=== PATIENT | male | born 1960 | race Two or more races ===

== ENCOUNTER 2016-09-06 20:26 | Inpatient (IN) | payer MEDICARE, MEDICAID ==
[~2016-09-06] VITALS: Ht 167.6 cm; Wt 99.5 kg
[~2016-09-06 20:26] MED LIST: ACET-2047 GTB; AMIN30LI3 GTB; ASC500 GTB; ASPI-664 GTB; CHLO473M2 MM; FAMO20TA18 GTB; LEVE500S9 GTB; MTC5V480 GTB; MUCO4 NEB; TOBR5DRO6 RIGHT EYE; ZINC220C5 GTB
[2016-09-06] MEDS ORDERED: ALLO100T GTB (20:53)
[2016-09-06] MEDS ORDERED: BUME1TAB18 GTB (20:54)
[2016-09-06] MEDS ORDERED: CALC0.255 GTB (20:55)
[2016-09-06] MEDS ORDERED: CITR30SO GTB (20:57)
[2016-09-06] MEDS ORDERED: LANS30CA GTB (20:58)
[2016-09-06] MEDS ORDERED: SEVE2.4P3 GTB (20:59)
[2016-09-06] MEDS ORDERED: CARAS GTB (21:00)
[2016-09-06] MEDS ORDERED: ACET160O41 GTB (21:03)
[2016-09-06] MEDS ORDERED: HYDR-906 GTB (21:05)
[2016-09-06] MEDS ORDERED: FAMO40TA52 GTB (21:07)
[2016-09-06] MEDS ORDERED: SODIUM CHLORIDE 0.9% 1L BAG IV* STA (21:13)
[2016-09-06] MEDS ORDERED: CEFEPIME 2GM/50 ML (PMX) 50 ML IVPB STA (21:13)
--- NOTE | 2016-09-06 21:21 | ERA ---
ER Documentation Chief Complaint Date/Time DATE: 09/06/16 TIME: 21:17 Chief Complaint high BUN more than 150, from [place] [facility] HPI 56-year-old male with a history of GI bleed, chronic respiratory failure trach and vent dependent, diabetes, cerebral palsy sent from [facility] for abnormal labs per request of Dr. Mcelroy. His BUN was critically high and his creatinine was elevated as well from baseline. Patient is nonverbal at baseline and is unable to give a history. ROS Limited secondary to patient being nonverbal Medications Home Meds Reported Medications Famotidine* (Famotidine*) 40 Mg Tablet, 40 MG GTB BID, #60 TAB 09/06/16 Hydrocodone/Acetaminophen ([place] 5-325 Tablet) 1 Each Tablet, 1 EACH GTB Q8 Y for MODERATE PAIN LEVEL 4-6, TAB 09/06/16 Acetaminophen* (Acetaminophen* Susp) 160 Mg/5 Ml Oral.susp, 640 MG GTB Q6 Y for PAIN OR TEMP ABOVE 38C, ML 09/06/16 Sucralfate* (Carafate*) 1 Gm/10 Ml Susp, 1 GM GTB BID, EA 09/06/16 Sevelamer Carbonate* (Renvela*) 2.4 Gm Powd.pack, 2.4 GM GTB WITH MEALS, PACKET 09/06/16 Lansoprazole* (Lansoprazole*) 30 Mg Capsule.dr, 30 MG GTB BID, CAP 09/06/16 Citric Acid/Sodium Citrate (Oracit Solution 30 Ml) 30 Ml Solution, 30 ML GTB BID 09/06/16 Calcitriol* (Rocaltrol*) 0.25 Mcg Capsule, 0.25 MCG GTB DAILY, CAP 09/06/16 Bumetanide* (Bumetanide*) 1 Mg Tablet, 1 MG GTB BID, TAB 09/06/16 Allopurinol* (Allopurinol*) 100 Mg Tablet, 200 MG GTB DAILY, TAB 09/06/16 Amino Acids/Protein Hydrolys (Pro-Stat Profile Liquid) 30 Ml Liquid, 30 ML GTB DAILY 06/18/16 Metoclopramide Hcl (Metoclopramide Hcl Soln) 5 Mg/5 Ml Solution, 5 MG GTB Q8 Y for NAUSEA AND/OR VOMITING, ML 06/18/16 Levetiracetam* (Levetiracetam*) 500 Mg/5 Ml Solution, 500 MG GTB BID, ML 06/18/16 Zinc Sulfate* (Zinc Sulfate*) 220 Mg Cap, 220 MG GTB DAILY, CAP 06/18/16 Chlorhexidine Gluconate (Periogard) 473 Ml Mouthwash, 15 ML MM BID, BOTTLE 06/18/16 Ascorbic Acid (Vitamin C) 500 Mg Tab, 500 MG GTB BID, TAB 06/18/16 Discontinued Reported Medications Acetylcysteine* (Mucomyst*) 4 Ml Soln, 2 ML NEB Q6, EA 06/18/16 Tobramycin Sulfate* (Tobramycin Sulfate*) 0.3% - 5 Ml Drops, 1 DROP RIGHT EYE Q6 , EA 06/18/16 Acetaminophen* (Acetaminophen*) 650 Mg Tablet, 650 MG GTB Q6H Y for PAIN AND TEMP>101, #30 TAB 06/18/16 Famotidine* (Famotidine*) 20 Mg Tablet, 20 MG GTB BID, #60 TAB 06/18/16 Aspirin* (Aspirin* EC) 81 Mg Tablet.dr, 81 MG GTB DAILY, TAB 06/18/16 Allergies Allergies: Coded Allergies: azithromycin (Unverified Allergy, Unknown, 09/06/16) erythromycin base (Unverified Allergy, Unknown, 09/06/16) piperacillin (Unverified Allergy, Unknown, 09/06/16) tazobactam (Unverified Allergy, Unknown, 09/06/16) PMhx/Soc Medical and Surgical Hx: Unable to obtain History of Surgery: Yes Anesthesia Reaction: No Hx Neurological Disorder: Yes (cerebral palsy,TIA) Hx Respiratory Disorders: Yes (Trach to vent,chronic resp failure) Hx Cardiac Disorders: Yes (atherosclerosis) Hx Psychiatric Problems: No Hx Miscellaneous Medical Probl: Yes (GIB,anemia,convulsions,DM2,GERD,mult pressure ulcers,contracted) Hx Substance Use: No Smoking Status: Unknown if ever smoked FmHx Family History: other (Unable to obtain) Physical Exam Vitals Vital Signs Date Time Temp Pulse Resp B/P Pulse Ox O2 Delivery O2 Flow Rate FiO2 09/07/16 01:17 99 16 134/62 99 Mechanical Ventilator T Tube Trach Collar 09/07/16 00:00 99 16 84/66 100 Mechanical Ventilator T Tube Trach Collar 09/06/16 23:30 96 19 87/65 100 Mechanical Ventilator T Tube Trach Collar 09/06/16 22:50 96 20 100 40 09/06/16 22:30 97 17 98/60 100 Mechanical Ventilator T Tube Trach Collar 09/06/16 22:15 100 21 71/39 100 Mechanical Ventilator T Tube Trach Collar 09/06/16 22:00 101 20 65/46 100 Mechanical Ventilator T Tube Trach Collar 09/06/16 21:15 99 0 82/58 100 Mechanical Ventilator T Tube Trach Collar 09/06/16 20:40 111 19 100 30 09/06/16 20:33 96.1 104 16 75/40 100 Physical Exam Const: Ill-appearing, very pale, extremities are all contracted, nontoxic Head: Atraumatic Eyes: Normal Conjunctiva, Johnathan ENT: Dry oral mucosa, no oropharyngeal bleeding, no epistaxis Neck: Limited range of motion secondary to contractures. Tracheostomy in place. Resp: Rhonchi bilaterally, diminished breath sounds bilaterally Cardio: Regular rate and rhythm, no murmurs Abd: Soft, non tender, non distended. Normal bowel sounds Skin: Petechiae present, multiple decubitus ulcers on the back and buttocks Back: Multiple decubitus ulcers with dressings in place Ext: Extremities contractures with muscle atrophy Neur: Awake and alert, nonverbal, does not follow commands Result Diagram: 09/06/163 09/06/16 2102 Results 24 hrs Laboratory Tests Test 09/06/16 21:02 09/06/16 22:13 09/06/16 22:15 09/06/16 23:29 Alanine Aminotransferase (ALT/SGPT) 19IU/L Albumin 1.7g/dl Albumin/Globulin Ratio 0.47 Alkaline Phosphatase 218IU/L Anion Gap 16 Aspartate Amino Transf (AST/SGOT) 17IU/L Blood Urea Nitrogen 234mg/dl Calcium Level 8.8mg/dl Carbon Dioxide Level 28mmol/L Chloride Level 106mmol/L Creatinine 3.20mg/dl Direct Bilirubin 0.00mg/dl Globulin 3.60g/dl Glucose Level 112mg/dl Indirect Bilirubin 0.0mg/dl Lactic Acid Level 1.7mmol/L 1.5mmol/L Potassium Level 5.2mmol/L Sodium Level 145mmol/L Total Bilirubin 0.0mg/dl Total Protein 5.3g/dl Troponin I 0.047ng/ml Basophils # 0.010^3/ul Basophils % 2.4% Blood Morphology Comment Eosinophils # 0.110^3/ul Eosinophils % 2.7% Hematocrit 9.2% Hemoglobin 3.2g/dl Lymphocytes # 0.510^3/ul Lymphocytes % 25.2% Mean Corpuscular Hemoglobin 31.2pg Mean Corpuscular Hemoglobin Concent 34.6g/dl Mean Corpuscular Volume 90.4fl Mean Platelet Volume 10.9fl Monocytes # 0.210^3/ul Monocytes % 10.1% Neutrophils # 1.310^3/ul Neutrophils % 61.6% Nucleated Red Blood Cells # 0.010^3/ul Nucleated Red Blood Cells % 0.0/100WBC Platelet Count 810^3/UL Red Blood Count 1.0210^6/ul Red Cell Distribution Width 15.6% White Blood Count 2.110^3/ul Activated Partial Thromboplast Time 41.8Sec INR International Normalized Ratio 1.31 Prothrombin Time 16.4Sec Prothrombin Time Ratio 1.3 Test 09/07/16 01:19 Urine Amorphous Urates MODERATE Urine Bacteria FEW Urine Bilirubin NEGATIVE Urine Clarity CLEAR Urine Color LT. YELLOW Urine Glucose NEGATIVE% Urine Hemoglobin TRACE Urine Ketones NEGATIVE Urine Leukocyte Esterase NEGATIVE Urine Microscopic RBC 0-2/HPF Urine Microscopic WBC 0-2/HPF Urine Nitrite NEGATIVE Urine Specific [place] 1.015 Urine Squamous Epithelial Cells MODERATE Urine Total Protein 1+ Urine Transitional Epithelial Cells FEW Urine Urobilinogen 0.2 E.U./dL Urine pH 5.0 Current Medications Medications (Trade) Dose Ordered Sig/Marynane Route PRN Reason Start Time Stop Time Status Last Admin Dose Admin Sodium Chloride 2300 ml 2,300 ml BOLUS OVER 2 HOURS STAT IV* 09/06/16 21:13 09/06/16 21:15 DC 09/06/16 21:31 Cefepime HCl 50 ml @ 100 mls/hr ONCE STAT IVPB 09/06/16 21:13 09/06/16 21:42 DC 09/06/16 21:41 Vancomycin HCl 250 ml @ 125 mls/hr ONCE ONCE IVPB 09/06/16 21:30 09/06/16 23:29 DC 09/06/16 22:15 Sodium Chloride (NS) 250 ml @ 0 mls/hr Q0M ONCE IV 09/06/16 22:17 09/06/16 22:18 DC Acetaminophen (Tylenol Liquid) 640 mg Q6H PRN GTB PAIN OR TEMP ABOVE 38C 09/06/16 22:30 Allopurinol (Zyloprim) 200 mg DAILY GTB 09/07/16 09:00 UNV Ascorbic Acid (Vitamin C) 500 mg BID GTB 09/07/16 09:00 UNV Bumetanide (Bumex) 1 mg BID GTB 09/07/16 09:00 UNV Calcitriol (Rocaltrol) 0.25 mcg DAILY GTB 09/07/16 09:00 UNV Chlorhexidine Gluconate (Peridex) 15 ml BID MM 09/07/16 09:00 UNV Famotidine (Pepcid) 40 mg BID GTB 09/07/16 09:00 UNV Lansoprazole (Prevacid) 30 mg BID GTB 09/07/16 09:00 UNV Levetiracetam (Keppra Liquid) 500 mg BID GTB 09/07/16 09:00 UNV Metoclopramide HCl (Reglan Liq (Ped)) 5 mg Q8 PRN GTB NAUSEA AND/OR VOMITING 09/06/16 22:30 UNV Sevelamer Carbonate (Renvela) 2.4 gm WITH MEALS GTB 09/07/16 08:00 UNV Sucralfate (Carafate Susp) 1 gm BID GTB 09/07/16 09:00 UNV Zinc Sulfate 220 mg 220 mg DAILY GTB 09/07/16 09:00 UNV Sodium Chloride (NS) 1,000 ml @ 100 mls/hr Q10H IV 09/06/16 22:23 UNV Ondansetron HCl (Zofran Inj) 4 mg Q6H PRN IV NAUSEA AND/OR VOMITING 09/06/16 22:30 Morphine Sulfate (morphine) 2 mg Q4H PRN IV PAIN LEVEL 7-10 09/06/16 22:30 Enoxaparin Sodium 30 mg 30 mg DAILY SC 09/07/16 09:00 UNV Sodium Chloride (NS) 250 ml @ 0 mls/hr Q0M ONCE IV 09/06/16 23:09 09/06/16 23:10 DC Procedures/MDM EKG: Rate/Rhythm: Normal Sinus Rhythm QRS, ST, T-waves: Low voltage, left anterior fascicular block, No changes consistent w/ acute ischemia Impression: No evidence of ischemia or arrhythmia Central Line Placement by me: Patient consented, sterilely draped, full prep, gown, glove, mask, time out performed. Anesthesia: 1% lidocaine locally Location: Left IJ Device: Multiple lumen Technique: Seldinger technique. Secured with suture. Results: Venous return from all ports with easy saline flush. Small overlying hematoma, no other complications Guide wire retrieved and disposed of. ED Ultrasound: Central line placed by me using concurrent ultrasound guidance. Chest X-ray 1V Interpreted by me: Central line in SVC, Normal soft tissue, No evidence of pneumothorax. Limited transthoracic echo performed by me Indication: Low voltage on EKG, shock Pericardium: No effusion Cardiac: Normal contraction Image archived in the medical record. The patient is presenting with multiple problems. He was originally sent for acute renal failure with uremia and elevated creatinine. However his labs were also notable for severe anemia and severe thrombocytopenia with low white blood cell count, indicative of pancytopenia of unknown etiology. I have a lower suspicion for septic shock, however since the patient has a chronic tracheostomy with a chest x-ray that is difficult to read, I cannot rule out underlying pneumonia. However the patient is afebrile. Broad spectrum antibiotics were given. Patient was a difficult access so central line was started. 30 cc/kg of IV fluids were given. 3 units of PRBCs and 2 units of platelets were ordered. His lactate was within normal limits. He will be admitted for further workup and management of his critical condition. Critical Care Time: 45 Minutes Treatments/Evaluations: Close monitoring and treatment of unstable vital signs, cardiorespiratory, and neurologic status, while maintaining tight balance of fluid, respiratory, and cardiac interventions. This time includes discussing the case with the patient and the patients family. This time does not include all procedures stated elsewhere in this record. This time also includes reviewing old records, labs and radiological studies. This time includes examining and re-examining the patient. Additionally, this time also includes arranging care with admitting and consulting physicians. Departure Diagnosis: Primary Impression: Hypovolemic shock Additional Impressions: Uremia Acute renal failure Qualified Code: N17.9 - Acute renal failure, unspecified acute renal failure type Hyperkalemia Acquired pancytopenia Thrombocytopenia Severe anemia LILLY JOHNSON MD Sep 06, 2016 21:21
[2016-09-06] MEDS ORDERED: VANCOMYCIN 1 GM (PMX) 250 ML IVPB ONE (21:30)
[2016-09-06 21:38] LABS: INR 1.31; PROTIME 16.4 Sec (12.2-14.2); PT RATIO 1.3
[2016-09-06 21:39] LABS: PARTIAL THROMBOPLASTIN TIME 41.8 Sec (25.0-35.0)
[2016-09-06 21:41] LABS: ALBUMIN 1.7 g/dl (3.3-4.9); POTASSIUM 5.2 mmol/L (3.5-5.1)
[2016-09-06 21:43] LABS: CREATININE 3.2 mg/dl (0.61-1.24)
[2016-09-06 21:44] LABS: ALBUMIN/GLOBULIN RATIO 0.47; TOTAL PROTEIN 5.3 g/dl (6.1-8.1)
[2016-09-06 21:45] LABS: CALCIUM 8.8 mg/dl (8.4-10.2)
[2016-09-06 21:56] LABS: TROPONIN-I 0.047 ng/ml (0.00-0.12)
--- NOTE | 2016-09-06 22:14 | RADRPT ---
PROCEDURE: XR Chest. CLINICAL INDICATION: Possible sepsis TECHNIQUE: A single portable view of the chest was obtained. COMPARISON: 07/24/2016 FINDINGS: Exam is limited secondary to patient positioning. A tracheostomy tube is again seen. The aorta is tortuous and atherosclerotic. The cardiomediastinal silhouette is otherwise enlarged and is stable. Diffuse pulmonary vascular congestion is seen with likely underlying pulmonary edema. Bilateral p leural effusions are noted. The soft tissues and osseous structures demonstrate benign age related senescent changes. IMPRESSION: Radiographic findings of congestive heart failure as described above. RPTAT: HPNM Physician Brendon Date Time Electronically viewed and signed by Physician Brendon on 09/06/2016 22:13 /
[2016-09-06] MEDS ORDERED: SOD CHLORIDE 0.9% 250 ML IV ONE ×2 (22:17→23:09)
[2016-09-06] MEDS ORDERED: METOCLOPRAMIDE 5 MG TAB GTB PRN (22:30)
[2016-09-06 23:04] LABS: EOSINOPHILS # 0.1 10^3/ul (0.0-0.5); HEMATOCRIT 9.2 % (42.0-52.0); MEAN CORPUSCULAR HEMOGLOBIN 31.2 pg (29.0-33.0); MEAN CORPUSCULAR HGB CONC 34.6 g/dl (32.0-37.0); MEAN CORPUSCULAR VOLUME 90.4 fl (82.0-101.0); MEAN PLATELET VOLUME 10.9 fl (7.4-10.4); MONOCYTE # 0.2 10^3/ul (0.3-0.9); RED BLOOD COUNT 1.02 10^6/ul (4.70-6.10); RED CELL DISTRIBUTION WIDTH 15.6 % (11.5-14.5)
[2016-09-06 23:12] LABS: HEMOGLOBIN 3.2 g/dl (14.0-18.0); PLATELET COUNT 8 10^3/UL (140-440)
[2016-09-07] VITALS (72 sets, daily range): BP systolic 68–126; BP diastolic 37–87; PULSE 77–101; RESP 12–22
[2016-09-07 01:40] LABS: ADD UMIC YES; URINE BILIRUBIN (Dip) NEGATIVE (NEGATIVE); URINE BLOOD (Dip) TRACE (NEGATIVE); URINE COLOR LT. YELLOW (YELLOW); URINE GLUCOSE (Dip) NEGATIVE (NEGATIVE); URINE KETONES (Dip) NEGATIVE (NEGATIVE); URINE LEUKOCYTE ESTERASE (Dip) NEGATIVE (NEGATIVE); URINE NITRITE (Dip) NEGATIVE (NEGATIVE); URINE UROBILINOGEN (Dip) 0.2 E.U./dL (0.1-1.0)
[2016-09-07 01:41] LABS: URINE TOTAL PROTEIN (Dip) 1+ (NEGATIVE)
[2016-09-07 01:58] LABS: ADD SCAN DIFF YES
[2016-09-07 02:00] LABS: BACTERIA,URINE FEW; SQUAMOUS EPITHELIAL CELL,UR MODERATE; TRANSITIONAL EPI CELLS,URINE FEW; URINE RBCS 0-2 /HPF (0)
--- NOTE | 2016-09-07 02:34 | RADRPT ---
PROCEDURE: CHEST - 1 VIEW September 07, 2016 at 01:10 a.m. CLINICAL INDICATION: 56-year-old male for line placement. TECHNIQUE: A single frontal AP view of the chest was performed portably. The images were reviewed on a PACS workstation. COMPARISON: Chest x-ray September 06, 2078 09:33 p.m. FINDINGS: The radiograph is rotated to the right. There is a left internal jugular central line with the tip in the mid superior vena cava region. There is a tracheostomy tube again identified. The cardiomed iastinal silhouette is enlarged. The right lung apex is obscured by the patient's mandible. There is worsening pulmonary vascular congestion. Mild bilateral pleural effusions with associate compressiv e atelectasis are present. A superimposed infiltrate cannot be excluded. There is no evidence for p neumothorax. The osseous structures are intact. IMPRESSION: 1. Rotated radiograph. 2. Interval placement of left internal jugular central line with the tip in the mid superior vena c randolph. 3. Tracheostomy tube. 4. Cardiomegaly. 5. Worsening pulmonary vascular congestion. 6. Bilateral pleural effusions with associate compressive atelectasis. A superimposed infiltrate c annot be excluded. .Aniket Lang MD, MD Date Time Electronically viewed and signed by .Aniket Lang MD, on 09/07/2016 02:34 .M/
[2016-09-07 02:58] LABS: LYMPHOCYTES # 0.6 10^3/ul (0.8-2.9); NEUTROPHIL # 1.2 10^3/ul (1.6-7.5)
[2016-09-07] MEDS ORDERED: BUMETANIDE 1 MG TAB GTB SCH (06:00)
[2016-09-07] MEDS: SOD CHLORIDE 0.9% 1,000 ML IV SCH ×3 (08:23→21:33)
[2016-09-07] MEDS: NORepinephrine 8MG/250 ML (PMX 250 ML IV SCH (08:40)
[2016-09-07] MEDS ORDERED: NORepinephrine 8MG/250 ML (PMX 250 ML ONE (08:46)
[2016-09-07] MEDS ORDERED: ALBUMIN HUMAN 25% 100 ML IV ONE (09:00)
[2016-09-07] MEDS ORDERED: SOD CHLORIDE 0.9% 500 ML IV ONE (09:00)
[2016-09-07] MEDS: SEVELAMER CARBONATE 2.4 GM PKT GTB SCH ×3 (09:06→17:09)
[2016-09-07] MEDS: CHLORHEXIDINE GLUCONATE 15 ML UD CUP MM SCH ×2 (09:06→21:36)
[2016-09-07] MEDS: SUCRALFATE (100 MG/ML) 10ML CUP GTB SCH ×2 (09:06→21:32)
[2016-09-07] MEDS: LEVETIRACETAM (100 MG/ML) 5ML CUP GTB SCH ×2 (09:06→21:32)
[2016-09-07] MEDS: CALCITRIOL 0.25 MCG CAP GTB SCH (09:07)
[2016-09-07] MEDS: ASCORBIC ACID 500 MG TAB GTB SCH ×2 (09:07→21:33)
[2016-09-07] MEDS: ZINC SULFATE 220 MG CAP GTB SCH (09:07)
[2016-09-07] MEDS: FAMOTIDINE 20 MG TAB GTB SCH (09:07)
--- NOTE | 2016-09-07 09:20 | CONS ---
Date/Time of Note Date/Time of Note DATE: 09/07/16 TIME: 09:15 Assessment/Plan Assessment/Plan Additional Assessment/Plan Assessment and recommendation; next 1. Chronic respiratory failure. 2. Multiple other comorbidities including severe CVA and severe anoxic encephalopathy. 3. Stable seizure disorder. 4. Pancytopenia. Patient already has received 2 units of packed RBCs currently getting platelet infusion as well. 5. Congestive heart failure. 6. Hypotension. Currently on Levophed drip. Patient also has been fluid resuscitated. Continue current treatment. Prognosis is poor. Consultation Date/Type/Reason Admit Date/Time Sep 06, 2016 at 22:27 Date of Consultation: Sep 07, 2016 Type of Consultation: Pulmonary/critical Reason for Consultation 56-year-old white male transferred from skilled nursing with severe anemia. She also was quite hypertensive. Because of severe anoxic enthesopathy patient is unable to give any history whatsoever. History was obtained from medical records. Past medical history; 1. Advanced dementia due to CVA. 2. Chronic respiratory failure, ventilator dependent. 3. CHF. 4. Renal insufficiency. 5. Seizure disorder. 6. History of anemia. 7. Gout. 8. Post tracheostomy and G-tube placement. Medications; were reviewed. Next Allergies; tazobactam and macrolide antibiotics. Social history; currently not available. Family history; not available. Occupational history; not available. Review of systems; unable to be obtained. General examination; middle-aged man, appears severely contracted. On mechanical ventilation via tracheostomy. Unresponsive. However currently in no distress. Social History Smoking Status: Unknown if ever smoked Exam/Review of Systems Vital Signs Vitals Vital Signs Date Time Temp Pulse Resp B/P Pulse Ox O2 Delivery O2 Flow Rate FiO2 09/07/16 08:00 94 13 77/37 100 Mechanical Ventilator 09/07/16 05:24 40 09/07/16 04:00 97.4 Intake and Output 09/06/16 09/06/16 09/07/16 15:00 23:00 07:00 Output Total 350 ml Balance -350 ml Exam Ventilator settings are AC of 14, tidal volume 550, PEEP of 5, 30% FiO2. H EENT examination; neck appears stiff with flexion contraction. Tracheostomy in place. Pupils are midsize reactive to light bilaterally. Patient is edentulous. No neck masses felt. Chest examination; diminished breath on lung bases bilaterally. S1-S2 audible. No murmurs. Regular rhythm. Abdomen examination; scaphoid, G-tube in place. No organomegaly felt. Back examination; multiple sacral decubitus ulcers are seen. Stage II. Extremity examination; no peripheral edema. [employer] examination; patient is completely unresponsive. Results Result Diagram: 09/06/16221209/06/16 2102 Results 24 hrs Laboratory Tests Test 09/06/16 21:02 09/06/16 22:13 09/06/16 22:15 09/06/16 23:29 Alanine Aminotransferase (ALT/SGPT) 19 Albumin 1.7 L Albumin/Globulin Ratio 0.47 Alkaline Phosphatase 218 H Anion Gap 16 Aspartate Amino Transf (AST/SGOT) 17 Blood Urea Nitrogen 234 H Calcium Level 8.8 Carbon Dioxide Level 28 Chloride Level 106 Creatinine 3.20 H Direct Bilirubin 0.00 Globulin 3.60 H Glucose Level 112 Indirect Bilirubin 0.0 Lactic Acid Level 1.7 1.5 Potassium Level 5.2 H Sodium Level 145 H Total Bilirubin 0.0 L Total Protein 5.3 L Troponin I 0.047 Basophils # Basophils % Blood Morphology Comment Eosinophils # 0.1 Eosinophils % 7.0 Hematocrit 9.2 #L Hemoglobin 3.2 #*L Lymphocytes # 0.6 L Lymphocytes % 30.0 Mean Corpuscular Hemoglobin 31.2 Mean Corpuscular Hemoglobin Concent 34.6 Mean Corpuscular Volume 90.4 Mean Platelet Volume 10.9 #H Monocytes # 0.2 L Monocytes % 8.0 Neutrophils # 1.2 L Neutrophils % 55.0 Nucleated Red Blood Cells # 0.0 Nucleated Red Blood Cells % 6.0 H Platelet Count 8 #*L Red Blood Count 1.02 #L Red Cell Distribution Width 15.6 H White Blood Count 2.1 #L Activated Partial Thromboplast Time 41.8 H INR International Normalized Ratio 1.31 Prothrombin Time 16.4 H Prothrombin Time Ratio 1.3 Test 09/07/16 01:19 Urine Amorphous Urates MODERATE Urine Bacteria FEW Urine Bilirubin NEGATIVE Urine Clarity CLEAR Urine Color LT. YELLOW Urine Glucose NEGATIVE Urine Hemoglobin TRACE Urine Ketones NEGATIVE Urine Leukocyte Esterase NEGATIVE Urine Microscopic RBC 0-2 Urine Microscopic WBC 0-2 Urine Nitrite NEGATIVE Urine Specific [place] 1.015 Urine Squamous Epithelial Cells MODERATE Urine Total Protein 1+ H Urine Transitional Epithelial Cells FEW Urine Urobilinogen 0.2 E.U./dL Urine pH 5.0 Medications Medications Current Medications Acetaminophen (Tylenol Liquid) 640 mg Q6H PRN GTB PAIN OR TEMP ABOVE 38C; Start 09/06/16 at 22:30 Allopurinol (Zyloprim) 200 mg DAILY GTB ; Start 09/07/16 at 09:00 Ascorbic Acid (Vitamin C) 500 mg BID GTB ; Start 09/07/16 at 09:00 Calcitriol (Rocaltrol) 0.25 mcg DAILY GTB ; Start 09/07/16 at 09:00 Chlorhexidine Gluconate (Peridex) 15 ml BID MM ; Start 09/07/16 at 09:00 Famotidine (Pepcid) 40 mg DAILY GTB ; Start 09/07/16 at 09:00 Lansoprazole (Prevacid) 30 mg BID@,18 GTB ; Start 09/07/16 at 06:00 Levetiracetam (Keppra Liquid) 500 mg BID GTB ; Start 09/07/16 at 09:00 Metoclopramide HCl (Reglan) 5 mg Q8H PRN GTB NAUSEA AND/OR VOMITING; Start 09/06 at 22:30 Sucralfate (Carafate Susp) 1 gm BID GTB ; Start 09/07/16 at 09:00 Zinc Sulfate 220 mg 220 mg DAILY GTB ; Start 09/07/16 at 09:00 Sodium Chloride (NS) 1,000 ml @ 100 mls/hr Q10H IV ; Start 09/06/16 at 22:23 Ondansetron HCl (Zofran Inj) 4 mg Q6H PRN IV NAUSEA AND/OR VOMITING; Start 09/06 at 22:30 Morphine Sulfate (morphine) 2 mg Q4H PRN IV PAIN LEVEL 7-10; Start 09/06/16 at 22:30 Enoxaparin Sodium 30 mg 30 mg DAILY SC ; Start 09/07/16 at 09:00 Norepinephrine 250 ml @ 1.875 mls/ hr TITRATE IV ; Start 09/07/16 at 09:00 Albumin Human 100 ml @ 100 mls/hr ONCE ONCE IV ; Start 09/07/16 at 09:00; Stop 09/07/16 at 09:59 Sodium Chloride (NS) 500 ml @ 500 mls/hr Q1H ONCE IV ; Start 09/07/16 at 09:00 ; Stop 09/07/16 at 09:59; Status LIU NESS Sep 07, 2016 09:20
[2016-09-07] MEDS: ENOXAPARIN 30 MG/0.3 ML SYG SC SCH (09:28)
[2016-09-07] MEDS: LANSOPRAZOLE 30 MG CAP GTB SCH ×3 (09:35→21:33)
[2016-09-07] MEDS: ALLOPURINOL 100 MG TAB GTB SCH (09:35)
[2016-09-07 09:52] LABS: ABNORMAL IP MESSAGE 1; EOSINOPHILS # 0.1 10^3/ul (0.0-0.5); EOSINOPHILS % 3.7 % (0.0-7.0); HEMATOCRIT 16.2 % (42.0-52.0); LYMPHOCYTES # 0.7 10^3/ul (0.8-2.9); LYMPHOCYTES % 18.7 % (15.0-51.0); MEAN CORPUSCULAR HEMOGLOBIN 30.9 pg (29.0-33.0); MEAN CORPUSCULAR HGB CONC 34.6 g/dl (32.0-37.0); MEAN CORPUSCULAR VOLUME 89.5 fl (82.0-101.0); MEAN PLATELET VOLUME 9.7 fl (7.4-10.4); MONOCYTE # 0.6 10^3/ul (0.3-0.9); MONOCYTES % 18.4 % (0.0-11.0); NEUTROPHILS % 58.6 % (39.0-77.0); NUCLEATED RED BLOOD CELLS% 0.9 /100WBC (0.0-0.0); PLATELET COUNT 55 10^3/UL (140-415); RED BLOOD COUNT 1.81 10^6/ul (4.70-6.10); RED CELL DISTRIBUTION WIDTH 15.4 % (11.5-14.5); WHITE BLOOD COUNT 3.5 10^3/ul (4.8-10.8)
[2016-09-07 09:56] LABS: ADD SCAN DIFF YES; HEMOGLOBIN 5.6 g/dl (14.0-18.0)
--- NOTE | 2016-09-07 10:01 | RADRPT ---
PROCEDURE: Retroperitoneal US. CLINICAL INDICATION: Renal insufficiency TECHNIQUE: Multiple sonographic images of the kidneys and retroperitoneum were obtained. The imag es were reviewed on a PACS workstation. COMPARISON: No prior studies are available for comparison. FINDINGS: The right kidney measures 10.4 cm. The left kidney measures 10.9 cm. There is increased echogenicity of the kidneys. There is no evidence of hydronephrosis. The urinary bladder is not visualized.. IMPRESSION: Echogenic kidneys, consistent with medical renal disease. No evidence of hydronephrosis. RPTAT: AA .Bird Jenkins MD, MD Date Time Electronically viewed and signed by .Bird Jenkins MD, on 09/07/2016 10:00 .S/
--- NOTE | 2016-09-07 10:13 | HP ---
DATE OF ADMISSION: 09/06/2016 CHIEF COMPLAINT: The patient sent by [facility] for elevated BU N and creatinine. HISTORY OF PRESENT ILLNESS: The patient is a 56-year-old gentleman with history of mental retardat ion, status post cerebrovascular accident, status post craniotomy. The patient with ventilator depe ndent chronic respiratory failure, chronic anemia, encephalopathy, seizure disorder, dysphagia with G-tube. The patient with multiple pressure ulcers by history and present on admission. The patient with history of sepsis and anemia requiring blood transfusion. [facility] labs his BUN and creatinine was high. Per previous admiss ion the patient's BUN and creatinine was within normal limits. Creatinine was even a little lower t good normal limits; however, patient's BUN was 234, creatinine 3.2. Patient also noted to have sever e anemia with hemoglobin being 3.2 and hematocrit 9.2, white blood cells was 2.1, platelet count 8. The patient was transfused 2 units of packed red blood cells and getting currently transfusion of p lateletpheresis. The patient has a large amount of secretions from the ET tube. The patient underwe nt a chest x-ray which revealed worsening pulmonary vascular congestion, bilateral pleural effusion with associated compressive atelectasis, a superimposed infiltrate cannot be excluded. The patient was started on broad spectrum antibiotics for possible hospital-acquired pneumonia and the patient i s admitted for further evaluation and management to intensive care unit. Patient had a tachycardia with labile blood pressure on admission. No fever, nausea, vomiting were reported. No diarrhea rep orted. PAST MEDICAL HISTORY: Per HPI. PAST SURGICAL HISTORY: Status post excisional debridement of right trochanteric decubitus ulcer by Prasad Ferro in March 2016. The patient is status post tracheostomy and status post G-tube placem ent, status post craniotomy. FAMILY HISTORY: Noncontributory. SOCIAL HISTORY: [facility]. ALLERGIES: PATIENT IS ALLERGIC TO: 1. ERYTHROMYCIN. 2. ZOSYN. MEDICATIONS ON ADMISSION: 1. Pepcid. 2. [place]. 3. Acetaminophen. 4. Carafate. 5. Renvela. 6. Lansoprazole 7. Rocaltrol. 8. Ranitidine. 9. Allopurinol. 10. Pro-Stat liquid. 11. Reglan. 12. Keppra. 13. Zinc sulfate. 14. Vitamin C ____. REVIEW OF SYSTEMS: A 12-point review of systems is negative unless what mentioned in the HPI. Unab le to obtain due to patient's condition. PHYSICAL ASSESSMENT: GENERAL: Well-developed, frail, elderly male who is lethargic, opens eyes to verbal stimuli. VITAL SIGNS: Temperature is 97.4, pulse is 94, blood pressure is 77/37, respiratory rate 13, oxygen saturation is 100% on 40% FIO2. HEENT: Head is atraumatic. Pupils are equal and reactive to light and accommodation. Oral mucosa is dry. NECK: Supple. There is a tracheostomy at the base of the neck with large amount of secretions. CHEST: Lungs are diminished bilaterally. Scattered rhonchi bilaterally. CARDIOVASCULAR: Normal S1, S2. No murmurs, gallops, clicks, rubs noted. ABDOMEN: Abdomen is round, soft, nondistended, nontender. Bowel sounds present. The patient has a G-tube. SKIN: No petechiae present. Patient has multiple decubitus ulcers. Please see wound care notes. EXTREMITIES: Contractures with muscle atrophy. NEUROLOGIC: The patient is awake, alert, opens eyes to commands, nonverbal, does not follow any com mands. LABORATORY DATA: On admission, CBC: White blood cells 2.1, hemoglobin 3.2, hematocrit 9.2, platele ts 8. Chemistry: Sodium is 145, potassium 5.2, chloride 106, carbon dioxide 28, anion gap 16, BUN is 234, creatinine 3.2, glucose 112, AST 17, ALT is 19, alkaline phosphate 218. Troponin 0.047, PT 16.4, INR is 1.31, PTT is 41.8. ASSESSMENT AND PLAN: 1. Severe anemia. Will transfuse, continue to monitor hemoglobin and hematocrit, obtain stool for OB, Dr. Singh to see patient in gastroenterology consultation. 2. Hypovolemic shock. Continue IV fluids. 3. Acute kidney failure secondary to #1 and #2. I will continue IV fluids, monitor BUN and creatini ne. Dr. Mk Purdy will follow patient in nephrology consultation. 4. Pancytopenia. 5. Ventilator-dependent respiratory failure. 6. Possible healthcare-acquired pneumonia. Dr. Hansen will be following the patient from pulmonolo gy consultation. Continue ventilator support, bronchodilators. The patient will continue broad spe ctrum antibiotics for possible pneumonia. Dr. Guy will be following patient in infectious diseas e consultation. 7. Dysphagia with PEG. 8. History of seizure disorder. Continue patient on Keppra. 9. Diastolic dysfunction congestive heart failure with preserved ejection fraction of 60%. 10. Possible sepsis. 11. Status post cerebrovascular accident, status post craniotomy. 12. Mental retardation. Per [facility]ci notes, patient is DNR with preference for hospitalization , G-tube feeding and IV fluids. We will continue Protonix for peptic ulcer disease prophylaxis. Fur ther recommendations based on clinical course. Plan of care discussed with Dr. Coello. Dictated By: QUIN ORTIZ SECURITY COMPLIANCE SPECIALIST for FREDDY COELLO MD SR/NTS Conf#: [id number] DID#: [id number]
[2016-09-07 10:30] LABS: Allen Test ACCEPTAB; MODE VENT - AC
[2016-09-07 10:36] LABS: CREATININE 3.44 mg/dl (0.61-1.24)
[2016-09-07 10:37] LABS: CALCIUM 9.2 mg/dl (8.4-10.2); MAGNESIUM 2.7 mg/dl (1.7-2.5)
--- NOTE | 2016-09-07 11:48 | CONS ---
DATE OF ADMISSION: 09/06/2016 DATE OF CONSULTATION: 09/07/2016 REASON FOR CONSULTATION: Acute kidney injury with a BUN of 216, creatinine 3.44. TYPE OF CONSULTATION: Nephrology. REFERRING PHYSICIAN: Navi. HISTORY OF PRESENT ILLNESS: This is a 56-year-old gentleman with a history of mental retardation, s tatus post cerebrovascular accident, status post craniotomy, ventilator-dependent respiratory failur e, anoxic encephalopathy, chronic anemia, seizure disorder, dysphagia status post G-tube, also has m ultiple pressure ulcers by history and present on admission. The patient is currently a skilled junie sing resident at the [place] [facility]. The patient was sent because of having a BUN of 234 and creatinine 3.2. The patient was also hypotensive, altered mental status. Patient 's chest x-ray shows superimposed new infiltrates with possible pneumonia, concerned about healthcar e-associated pneumonia. The patient was tachycardic with labile blood pressure on admission and franki king has been consulted for acute renal failure with a BUN of 234. The patient has a previous history of multiple decubitus ulcers and had an excisional debridement of right trochanter decubitus ulcer done by Dr. Ferro in March 2016. REVIEW OF SYSTEMS: Unable to obtain from the patient since the patient is on a ventilator and he i s mentally retarded. PAST MEDICAL HISTORY: As per HPI. PAST SURGICAL HISTORY: History of excisional debridement of right trochanteric decubitus ulcer by Prasad Ferro in March 2016, status post tracheostomy, status post G-tube placement, status post cr aniectomy. FAMILY HISTORY: Noncontributory. 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 ALLERGIES: ERYTHROMYCIN AND ZOSYN. MEDICATIONS: As per medical reconciliation. PHYSICAL EXAMINATION: VITAL SIGNS: Temperature 98.6, heart rate 84, respirations 15, blood pressure 109/66, saturation on FIO2 100% on ventilator. GENERAL: The patient is currently intubated on ventilator. HEENT: Tracheostomy site is clear in place. LUNGS: Bilateral coarse breath sounds present. HEART: S1, S2, tachycardia. ABDOMEN: Soft. G-tube is in place. EXTREMITIES: Dry skin. NEUROLOGICAL: Uncooperative for exam. SKIN: Multiple pressure ulcers. LABORATORY DATA/DIAGNOSTIC IMAGING: Sodium 151, potassium 5, chloride 111, bicarbonate 26, BUN 216 , creatinine 3.4, glucose 83, calcium 9.2, magnesium 2.7. PT 16.4, PTT 41.8, INR 1.3. ABG shows a pH of 7.47. WBC 3.5, hemoglobin 3.2, platelet count ____. Chest x-ray shows interval placement o f the left internal jugular central line, tracheostomy tube, cardiomegaly, worsening pulmonary vascu lar congestion. IMPRESSION: This is a 56-year-old male with: 1. Acute kidney injury on possible chronic kidney disease secondary to severe prerenal azotemia cau sing ischemic acute tubular necrosis in the setting of severe anemia. 2. Severe anemia, rule out gastrointestinal bleeding. 3. Chronic respiratory failure, status post tracheostomy, on vent. 4. Pancytopenia. 5. History of a seizure disorder. 6. Possible concern about septic shock. PLAN: 1. Thank you, Dr. Mcelroy, for this consultation. I will start the patient on a Levophed drip bec ause of his septic shock. Plan is to give a blood transfusion PRBC and platelets for his thrombocyt openia. 2. I will stop his Bumex drip at this point. Patient will be given albumin 25% 100 mL IV x1 follow ed by NS 500 mL IV bolus and the patient will be continued on maintenance fluid after that. 3. The patient is currently seen in the ICU and will be followed up along with the primary care ser vice, Dr. Mcelroy. Dictated By: KENIA TURCIOS MD, KP/NIKOLAI Conf#: [id number] DID#: [id number]
--- NOTE | 2016-09-07 12:06 | CONS ---
DATE OF ADMISSION: 09/06/2016 DATE OF CONSULTATION: TYPE OF CONSULTATION: Gastroenterology. Dear Dr. Mcelroy: Thank you for asking me to see Mr. Wang in GI consultation. HISTORY OF PRESENT ILLNESS: The patient, as you know, is a 56-year-old white gentleman, is transfer red to [facility] from the care home because of the fact that he was found to h ave a low hemoglobin of 3.2, platelet count of 8000. WBC is 2100, hemoglobin went up to 5.6 after t ransfusion. He is a resident of a care home. He did have a prothrombin time of 16.4. However, his liver panel normal. He is unresponsive. He is status post tracheostomy, he is ventilator dependent. He has got a G-tube in place. He does not show any evidence of blood rectally. He has not had any bleeding. REVIEW OF SYSTEMS: Indicates history of mental retardation, history of CVA, status post craniotomy, ventilator dependent, history of sepsis in the past. He also has renal azotemia. MEDICATIONS: Prior to this admission include: 1. Pepcid. 2. [place]. 3. Acetaminophen. 4. Carafate. 5. Renvela. 6. Lansoprazole 7. Rocaltrol. 8. Ranitidine 9. Allopurinol. 10. Pro-Stat. 11. Reglan. 12. Keppra. 13. Zinc sulfate. PHYSICAL EXAMINATION: GENERAL: The patient is a 56-year-old white gentleman who at this time is unresponsive, is on venti lator, tracheostomy noted. VITAL SIGNS: Pulse is 84, blood pressure 109/66, respirations 15. CARDIOVASCULAR: Normal heart sounds. RESPIRATORY: Normal breath sounds. ABDOMEN: Showed unremarkable findings. There is a G-tube in place. Gastric aspiration did not show any blood. RECTAL: Exam is deferred. LABORATORY WORKUP: As mentioned earlier on, hemoglobin is 5.6 after blood transfusion. IMAGING STUDIES: Chest x-ray shows cardiomegaly, pulmonary congestion, bilateral pleural effusion. CLINICAL IMPRESSION: The patient has evidence of anemia and this is probably part of the pancytopen ia, whether he has cirrhosis I am not very clear right now. Certainly GI bleeding should be ruled ou t, peptic ulcer disease, gastritis, and colonic neoplasm should be ruled out. Respiratory failure, status post tracheostomy, craniotomy and ventilator dependent. PLAN: At this time, considering supportive therapy. I suspect that family says that they do not wa nt aggressive workup, including endoscopy. Once again, doctor, thank you for this consultation. Dictated By: GEORGE DOS SANTOS MD NC/NTS Conf#: [id number] DID#: [id number] CC: FREDDY MCELROY MD;*EndCC*
[2016-09-07 17:29] LABS: POTASSIUM 4.7 mmol/L (3.5-5.1)
[2016-09-07 17:32] LABS: CALCIUM 8.6 mg/dl (8.4-10.2); CREATININE 3.22 mg/dl (0.61-1.24)
[2016-09-07 20:14] LABS: ABNORMAL IP MESSAGE 1; HEMATOCRIT 18.9 % (42.0-52.0); LYMPHOCYTES # 0.5 10^3/ul (0.8-2.9); MEAN CORPUSCULAR HEMOGLOBIN 30.5 pg (29.0-33.0); MEAN CORPUSCULAR HGB CONC 33.9 g/dl (32.0-37.0); MEAN PLATELET VOLUME 11.3 fl (7.4-10.4); PLATELET COUNT 48 10^3/UL (140-415); RED CELL DISTRIBUTION WIDTH 14.9 % (11.5-14.5); WHITE BLOOD COUNT 3.8 10^3/ul (4.8-10.8)
[2016-09-07 20:18] LABS: HEMOGLOBIN 6.4 g/dl (14.0-18.0)
[2016-09-07 20:20] LABS: ADD SCAN DIFF YES
[2016-09-07 21:51] LABS: MONOCYTE # 0.5 10^3/ul (0.3-0.9); NEUTROPHIL # 2.4 10^3/ul (1.6-7.5)
[2016-09-08] VITALS (88 sets, daily range): BP systolic 92–132; BP diastolic 52–97; PULSE 0–108; RESP 10–36
[2016-09-08] MEDS: COLLAGENASE 30 GM TUBE TOP SCH ×2 (01:09→09:13)
[2016-09-08] MEDS: morphine 2 MG INJ IV PRN (01:09)
[2016-09-08] MEDS: SOD CHLORIDE 0.9% 1,000 ML IV SCH ×3 (04:23→14:23)
--- NOTE | 2016-09-08 08:12 | CONS ---
DATE OF ADMISSION: 09/06/2016 DATE OF CONSULTATION: TYPE OF CONSULTATION: Infectious disease. REQUESTING PHYSICIANS: 1. Wayne Guy MD 2. Meggan Fine MD 3. Jose Ramon Mcelroy MD HISTORY OF PRESENT ILLNESS: The patient is a 56-year-old white male who is ventilator-dependent, to tally dependent, mentally retarded with cerebral palsy, who was transferred from the [facility] unit with a chief complaint of an elevated BUN and a low blood pressure. The patient was seen in the emergency room and noted to have a BUN of 234 and the lowest blood pressure was 68/9 3. The patient's white count was 2100, 55 polys, 30 lymphs, 8 monocytes and 7 eosinophils. The hari telet count was 8,000. The hematocrit was 9%. Urinalysis had a specific gravity of 1.015, +1 prote in, negative nitrites, 0 to 2 RBCs, 0 to 2 WBCs. Creatinine was 3.2, SGOT 171, alkaline phosphatase 218, albumin 1.7. Chest x-ray revealed congestive heart failure. The patient was transfused and g iven platelet transfusions, and transferred to the intensive care unit. He was begun on treatment w ith cefepime and vancomycin. MRSA screening test is pending. C. difficile test is negative. Sputu m has gram-negative rods. Ultrasound of the kidneys revealed medical renal disease. PAST MEDICAL HISTORY: The patient has a past medical history of vent-dependent respiratory failure, cerebrovascular accident with dysphagia, seizure disorder, diabetes, bilateral trochanteric ulcers, mental retardation, cerebral palsy and gout. PHYSICAL EXAMINATION: GENERAL: Reveals a chronically ill-appearing, but obese white male, who is lying in a semi-recumben t right lateral decubitus position. His face occasionally grimaces. There is a tracheostomy tube in place. He has normal sinus rhythm. VITAL SIGNS: Stable. His pulse is 98. NECK: There is a tracheostomy which appears to be clean, without drainage or bleeding. There is no j ugular venous distention. CHEST: Has distant breath sounds. There appears to be rales in the bases. ABDOMEN: Obese and soft. There is a G-tube in the left upper quadrant, which does not appear to be reddened, obstructed, or have purulent or any other kind of drainage. Bowel sounds were not heard. EXTREMITIES: Reveals bilateral hand edema. The distal phalanges of the right hand, including the t humb, are absent. The right great toe is absent. There are contractures in both lower and both upp er extremities. There are large granulating trochanteric ulcers on both sides, which are stage III. There is a Brar catheter in place. The scrotum is swollen. The patient is lying in a large pool o f chocolate-colored stool. INITIAL IMPRESSION: 1. Hypovolemia due to gastrointestinal bleeding due to thrombocytopenia. 2. High output congestive heart failure. 3. Azotemia. 4. Stage IV chronic kidney disease. 5. Pancytopenia. 6. Vent-dependent respiratory failure. 7. Dysphagia/old cerebrovascular accident. 8. Decubitus ulcers, bilateral trochanteric. 9. Seizure disorder. 10. Gout. RECOMMEND: Continue cefepime and vancomycin, pending culture results. Agree with nonaggressive ariela tment. Dictated By: Jin RENTERIA/NIKOLAI Conf#: [id number] DID#: [id number]
[2016-09-08] MEDS: CALCITRIOL 0.25 MCG CAP GTB SCH (09:10)
[2016-09-08] MEDS: LEVETIRACETAM (100 MG/ML) 5ML CUP GTB SCH ×2 (09:10→21:08)
[2016-09-08] MEDS: SEVELAMER CARBONATE 2.4 GM PKT GTB SCH ×3 (09:10→17:22)
[2016-09-08] MEDS: SUCRALFATE (100 MG/ML) 10ML CUP GTB SCH ×2 (09:10→21:08)
[2016-09-08] MEDS: ASCORBIC ACID 500 MG TAB GTB SCH ×2 (09:10→21:08)
[2016-09-08] MEDS: FAMOTIDINE 20 MG TAB GTB SCH (09:10)
[2016-09-08] MEDS: ALLOPURINOL 100 MG TAB GTB SCH (09:11)
[2016-09-08] MEDS: CHLORHEXIDINE GLUCONATE 15 ML UD CUP MM SCH ×2 (09:11→21:08)
[2016-09-08] MEDS: ZINC SULFATE 220 MG CAP GTB SCH (09:11)
[2016-09-08] MEDS: ENOXAPARIN 30 MG/0.3 ML SYG SC SCH (09:15)
[2016-09-08] MEDS: NORepinephrine 8MG/250 ML (PMX 250 ML IV SCH (09:16)
--- NOTE | 2016-09-08 09:52 | CONS ---
Date/Time of Note Date/Time of Note DATE: 09/08/16 TIME: 09:50 Assessment/Plan Assessment/Plan Additional Assessment/Plan 1. Acute kidney injury on possible chronic kidney disease secondary to severe prerenal azotemia causing ischemic acute tubular necrosis in the setting of severe anemia. 2. Severe anemia, rule out gastrointestinal bleeding.s/p PRBC yesterday 3. Chronic respiratory failure, status post tracheostomy, on vent. 4. Pancytopenia. 5. History of a seizure disorder. 6. Possible concern about septic shock. PLAN: s/p PRBC BUN/Cr slowly improving Add free water flush G tube 200 cc Q 6 hr Expecting BUn/Cr to improve pt has K normal, no plan for HD at this point Blood transfusion plan as per GI and Primary care Consultation Date/Type/Reason Admit Date/Time Sep 06, 2016 at 22:27 Initial Consult Date 09/07/16 Type of Consultation: NEPHROLOGY Referring Provider: FREDDY COELLO MD 24 HR Interval Summary Free Text/Dictation received PRBC< BUN/Cr slowly improving Exam/Review of Systems Vital Signs Vitals Vital Signs Date Time Temp Pulse Resp B/P Pulse Ox O2 Delivery O2 Flow Rate FiO2 09/08/16 08:00 74 09/08/16 06:45 17 101/81 97 09/08/16 06:15 Mechanical Ventilator 09/08/16 05:53 30 09/08/16 04:00 98.6 Intake and Output 09/07/16 09/07/16 09/08/16 15:00 23:00 07:00 Intake Total 718.750 ml 1851.5 ml 874.4 ml Output Total 580 ml 215 ml Balance 718.750 ml 1271.5 ml 659.4 ml Exam GENERAL: The patient is currently on ventilator. HEENT: Tracheostomy site is clear in place. LUNGS: Bilateral coarse breath sounds present. HEART: S1, S2, tachycardia. ABDOMEN: Soft. G-tube is in place. EXTREMITIES: Dry skin. NEUROLOGICAL: Uncooperative for exam. SKIN: Multiple pressure ulcers. Results Result Diagram: 09/07/16 1705 09/07/16 170 Results 24 hrs Laboratory Tests Test 09/07/16 10:02 09/07/16 17:05 Arterial Blood HCO3 26.5 H Arterial Blood Base Excess 2.6 Arterial Blood Oxygen Saturation 96.8 [place] Test ACCEPTAB Arterial Blood Gas Puncture Site Right Radial Arterial Blood Carboxyhemoglobin 0.3 Arterial Blood Date Drawn 09/07/2016 10:10:04 AM Arterial Blood Methemoglobin 0.6 Arterial Blood pCO2 (Temp correct) 36.7 Arterial Blood pH (Temp corrected) 7.476 H Arterial Blood pO2 (Temp corrected) 99.2 Blood Gas A-a O2 Differential 143.8 H Blood Gas Actual Respiration Rate 15 Blood Gas Low PEEP Setting 5.0 Blood Gas Modality VENT - AC Blood Gas Notified Time 09/07/2016 10:38:21 AM Blood Gas Notified Whom JLD Blood Gas Respiration Rate 14.0 Blood Gas Specimen Source Blood arterial Blood Gas Temperature 37.0 Blood Gas Tidal Volume 550.0 FiO2 40.0 Oxyhemoglobin Percent 95.9 Total Hemoglobin 5.5 L Anion Gap 19 H Basophils # Basophils % Blood Urea Nitrogen 205 H Calcium Level 8.6 Carbon Dioxide Level 25 Chloride Level 108 Creatinine 3.22 H Eosinophils # 0.0 Eosinophils % 1.0 Glucose Level 82 Hematocrit 18.9 L Hemoglobin 6.4 *L Lymphocytes # 0.5 L Lymphocytes % 12.0 L Mean Corpuscular Hemoglobin 30.5 Mean Corpuscular Hemoglobin Concent 33.9 Mean Corpuscular Volume 90.0 Mean Platelet Volume 11.3 H Monocytes # 0.5 Monocytes % 14.0 H Neutrophils # 2.4 Neutrophils % 64.0 Nucleated Red Blood Cells # 0.0 Nucleated Red Blood Cells % 0.0 Platelet Count 48 L Potassium Level 4.7 Red Blood Count 2.10 L Red Cell Distribution Width 14.9 H Sodium Level 147 H White Blood Count 3.8 L Medications Medications Current Medications Acetaminophen (Tylenol Liquid) 640 mg Q6H PRN GTB PAIN OR TEMP ABOVE 38C; Start 09/06/16 at 22:30 Allopurinol (Zyloprim) 200 mg DAILY GTB Last administered on 09/08/16 09:11; Admin Dose 200 MG; Start 09/07/16 at 09:00 Ascorbic Acid (Vitamin C) 500 mg BID GTB Last administered on 09/08/16 09:10; Admin Dose 500 MG; Start 09/07/16 at 09:00 Calcitriol (Rocaltrol) 0.25 mcg DAILY GTB Last administered on 09/08/16 09:10 ; Admin Dose 0.25 MCG; Start 09/07/16 at 09:00 Chlorhexidine Gluconate (Peridex) 15 ml BID MM Last administered on 09/08/16 09:11; Admin Dose 15 ML; Start 09/07/16 at 09:00 Famotidine (Pepcid) 40 mg DAILY GTB Last administered on 09/08/16 09:10; Admin Dose 40 MG; Start 09/07/16 at 09:00 Lansoprazole (Prevacid) 30 mg BID@,18 GTB Last administered on 09/07/16 21: 33; Admin Dose 30 MG; Start 09/07/16 at 06:00 Levetiracetam (Keppra Liquid) 500 mg BID GTB Last administered on 09/08/16 09: 10; Admin Dose 500 MG; Start 09/07/16 at 09:00 Metoclopramide HCl (Reglan) 5 mg Q8H PRN GTB NAUSEA AND/OR VOMITING; Start 09/06 at 22:30 Sucralfate (Carafate Susp) 1 gm BID GTB Last administered on 09/08/16 09:10; Admin Dose 1 GM; Start 09/07/16 at 09:00 Zinc Sulfate 220 mg 220 mg DAILY GTB Last administered on 09/08/16 09:11; Admin Dose 220 MG; Start 09/07/16 at 09:00 Sodium Chloride (NS) 1,000 ml @ 100 mls/hr Q10H IV Last administered on 09:11; Admin Dose 100 MLS/HR; Start 09/06/16 at 22:23 Ondansetron HCl (Zofran Inj) 4 mg Q6H PRN IV NAUSEA AND/OR VOMITING; Start 09/06 at 22:30 Morphine Sulfate (morphine) 2 mg Q4H PRN IV PAIN LEVEL 7-10 Last administered on 09/08/16 01:09; Admin Dose 2 MG; Start 09/06/16 at 22:30 Enoxaparin Sodium 30 mg 30 mg DAILY SC Last administered on 09/08/16 09:15; Admin Dose 30 MG; Start 09/07/16 at 09:00 Norepinephrine (Levophed) 250 ml @ 1.875 mls/ hr TITRATE IV Last administered on 09/08/16 09:16; Admin Dose 9.375 MLS/HR; Start 09/07/16 at 09:00; Stop 09/08 at 11:59 Collagenase 1 applic 1 applic DAILY TOP Last administered on 09/08/16t 09:13; Admin Dose 1 APPLIC; Start 09/07/16 at 19:30; Stop 09/15/16 at 11:30 Norepinephrine/ Dextrose (Levophed/D5W) 500 ml @ 1.87 mls/hr TITRATE IV ; Start 09/08/16 at 12:00 KENIA TURCIOS MD Sep 08, 2016 09:52
--- NOTE | 2016-09-08 10:21 | CONS ---
Date/Time of Note Date/Time of Note DATE: 09/08/16 TIME: 10:20 Assessment/Plan Assessment/Plan Chief Complaint/Hosp Course ID PROGRESS NOTE TOTAL ABX DAY # Cefepime + Vanco IV 24H INTERVAL SUMMARY * Noncommunicative, VSS, NAD * Trach, peg, Left IJ TLC, multiple decubs noted and photos reviewed Specimen: [id number] Status: Resulted Thanh: 09/06/16 Rcvd: 09/06 Source: SPUTUM Sp Descrip: Microbiology GRAM STAIN Final POLYMORPH. LEUKOCYTE 3+ EPITHELIAL CELLS RARE GRAM NEGATIVE RODS 2+ RESPIRATORY CULTURE Preliminary Organism 1 GRAM NEGATIVE REBEKAH QUANTITY 1+ PHYSICAL EXAMINATION: GENERAL: VSS, NAD HEENT: Unremarkable NECK: Trach-> Vent secure CHEST: Rise symmetrical - Course BS HEART: RRR ABDOMEN: Soft, EXTREMITIES: Warm, ID ASSESSMENT: 56 yo M w/PMHx INITIAL IMPRESSION: 1. Hypovolemia due to gastrointestinal bleeding due to thrombocytopenia. 2. High output congestive heart failure. 3. Azotemia. 4. Stage IV chronic kidney disease. 5. Pancytopenia. 6. Vent-dependent respiratory failure. 7. Dysphagia/old cerebrovascular accident. 8. Decubitus ulcers, bilateral trochanteric, heels, back 9. Seizure disorder. 10. Gout. (-)MRSA Nares INVASIVES: *Trach, Peg, FC, L-IJ TLC ABX ALLERGIES: PCN, Macrolides, Erythromycin base CURRENT ABX: Cefepime + Vanco IV ID RECOMMENDATIONS: Continue current ABX, non-aggressive care . Problems: Consultation Date/Type/Reason Admit Date/Time Sep 06, 2016 at 22:27 Initial Consult Date 09/07/16 Type of Consultation: ID Referring Provider: FREDDY COELLO MD Exam/Review of Systems Vital Signs Vitals Vital Signs Date Time Temp Pulse Resp B/P Pulse Ox O2 Delivery O2 Flow Rate FiO2 09/08/16 08:00 74 09/08/16 06:45 17 101/81 97 09/08/16 06:15 Mechanical Ventilator 09/08/16 05:53 30 09/08/16 04:00 98.6 Intake and Output 09/07/16 09/07/16 09/08/16 15:00 23:00 07:00 Intake Total 718.750 ml 1851.5 ml 874.4 ml Output Total 580 ml 215 ml Balance 718.750 ml 1271.5 ml 659.4 ml Results Result Diagram: 09/07/16 1705 09/07/16 1705 Results 24 hrs Laboratory Tests Test 09/07/16 17:05 Anion Gap 19 H Basophils # Basophils % Blood Urea Nitrogen 205 H Calcium Level 8.6 Carbon Dioxide Level 25 Chloride Level 108 Creatinine 3.22 H Eosinophils # 0.0 Eosinophils % 1.0 Glucose Level 82 Hematocrit 18.9 L Hemoglobin 6.4 *L Lymphocytes # 0.5 L Lymphocytes % 12.0 L Mean Corpuscular Hemoglobin 30.5 Mean Corpuscular Hemoglobin Concent 33.9 Mean Corpuscular Volume 90.0 Mean Platelet Volume 11.3 H Monocytes # 0.5 Monocytes % 14.0 H Neutrophils # 2.4 Neutrophils % 64.0 Nucleated Red Blood Cells # 0.0 Nucleated Red Blood Cells % 0.0 Platelet Count 48 L Potassium Level 4.7 Red Blood Count 2.10 L Red Cell Distribution Width 14.9 H Sodium Level 147 H White Blood Count 3.8 L Medications Medications Current Medications Acetaminophen (Tylenol Liquid) 640 mg Q6H PRN GTB PAIN OR TEMP ABOVE 38C; Start 09/06/16 at 22:30 Allopurinol (Zyloprim) 200 mg DAILY GTB Last administered on 09/08/16 09:11; Admin Dose 200 MG; Start 09/07/16 at 09:00 Ascorbic Acid (Vitamin C) 500 mg BID GTB Last administered on 09/08/16 09:10; Admin Dose 500 MG; Start 09/07/16 at 09:00 Calcitriol (Rocaltrol) 0.25 mcg DAILY GTB Last administered on 09/08/16 09:10 ; Admin Dose 0.25 MCG; Start 09/07/16 at 09:00 Chlorhexidine Gluconate (Peridex) 15 ml BID MM Last administered on 09/08/16 09:11; Admin Dose 15 ML; Start 09/07/16 at 09:00 Famotidine (Pepcid) 40 mg DAILY GTB Last administered on 09/08/16 09:10; Admin Dose 40 MG; Start 09/07/16 at 09:00 Lansoprazole (Prevacid) 30 mg BID@,18 GTB Last administered on 09/07/16 21: 33; Admin Dose 30 MG; Start 09/07/16 at 06:00 Levetiracetam (Keppra Liquid) 500 mg BID GTB Last administered on 09/08/16 09: 10; Admin Dose 500 MG; Start 09/07/16 at 09:00 Metoclopramide HCl (Reglan) 5 mg Q8H PRN GTB NAUSEA AND/OR VOMITING; Start 09/06 at 22:30 Sucralfate (Carafate Susp) 1 gm BID GTB Last administered on 09/08/16 09:10; Admin Dose 1 GM; Start 09/07/16 at 09:00 Zinc Sulfate 220 mg 220 mg DAILY GTB Last administered on 09/08/16 09:11; Admin Dose 220 MG; Start 09/07/16 at 09:00 Sodium Chloride (NS) 1,000 ml @ 100 mls/hr Q10H IV Last administered on 09:11; Admin Dose 100 MLS/HR; Start 09/06/16 at 22:23 Ondansetron HCl (Zofran Inj) 4 mg Q6H PRN IV NAUSEA AND/OR VOMITING; Start 09/06 at 22:30 Morphine Sulfate (morphine) 2 mg Q4H PRN IV PAIN LEVEL 7-10 Last administered on 09/08/16 01:09; Admin Dose 2 MG; Start 09/06/16 at 22:30 Enoxaparin Sodium 30 mg 30 mg DAILY SC Last administered on 09/08/16 09:15; Admin Dose 30 MG; Start 09/07/16 at 09:00 Norepinephrine (Levophed) 250 ml @ 1.875 mls/ hr TITRATE IV Last administered on 09/08/16 09:16; Admin Dose 9.375 MLS/HR; Start 09/07/16 at 09:00; Stop 09/08 at 11:59 Collagenase 1 applic 1 applic DAILY TOP Last administered on 09/08/16t 09:13; Admin Dose 1 APPLIC; Start 09/07/16 at 19:30; Stop 09/15/16 at 11:30 Norepinephrine/ Dextrose (Levophed/D5W) 500 ml @ 1.87 mls/hr TITRATE IV ; Start 09/08/16 at 12:00 IRINA VARGHESE NP Sep 08, 2016 10:21
[2016-09-08 12:17] LABS: BASOPHILS % 0.1 % (0.0-2.0); EOSINOPHILS # 0.2 10^3/ul (0.0-0.5); EOSINOPHILS % 4.9 % (0.0-7.0); HEMOGLOBIN 9.8 g/dl (14.0-18.0); LYMPHOCYTES # 0.6 10^3/ul (0.8-2.9); LYMPHOCYTES % 14.1 % (15.0-51.0); MEAN CORPUSCULAR HEMOGLOBIN 30.7 pg (29.0-33.0); MEAN CORPUSCULAR HGB CONC 34.9 g/dl (32.0-37.0); MEAN CORPUSCULAR VOLUME 87.8 fl (82.0-101.0); MEAN PLATELET VOLUME 7.8 fl (7.4-10.4); MONOCYTE # 0.7 10^3/ul (0.3-0.9); MONOCYTES % 15.1 % (0.0-11.0); NEUTROPHILS % 65.8 % (39.0-77.0); PLATELET COUNT 47 10^3/UL (140-440); RED BLOOD COUNT 3.19 10^6/ul (4.70-6.10); RED CELL DISTRIBUTION WIDTH 14.4 % (11.5-14.5); UNCORRECTED WBC 4.6 10^3/ul (4.8-10.8); WHITE BLOOD COUNT 4.6 10^3/ul (4.8-10.8)
[2016-09-08 12:20] LABS: CONDITION 1; LH ANALYZER COMMENTS 1
[2016-09-08 12:24] LABS: POTASSIUM 4.6 mmol/L (3.5-5.1)
[2016-09-08 12:27] LABS: CREATININE 3.13 mg/dl (0.61-1.24)
[2016-09-08 12:28] LABS: CALCIUM 8.4 mg/dl (8.4-10.2); MAGNESIUM 2.4 mg/dl (1.7-2.5)
--- NOTE | 2016-09-08 15:12 | PN ---
Date/Time of Note Date/Time of Note DATE: 09/08/16 TIME: 15:10 Assessment/Plan VTE Prophylaxis VTE Prophylaxis Intervention: other Lines/Catheters IV Catheter Type (from [facility]): Central Line Central line still needed: Yes Urinary Cath still in place: Yes Reason Cath still needed: urinary retention Assessment/Plan Assessment/Plan 1 Severe anemia. SP transfuse, continue to monitor hemoglobin and hematocrit, obtain stool for OB per Dr. Singh in gastroenterology consultation. 2. Hypovolemic shock. Continue IV fluids. 3. Acute kidney failure secondary to #1 and #2. I will continue IV fluids, monitor BUN and creatinine. - per Dr. Mk Purdy in nephrology consultation. 4. Pancytopenia. 5. Ventilator-dependent respiratory failure. - pet Dr. Hansen in pulmonology consultation. - Continue ventilator support, bronchodilators. - pet Dr. Hansen in pulmonology consultation. \\\\ - Continue ventilator support, bronchodilators. 6. Possible healthcare-acquired pneumonia - per Dr. Guy in infectious disease consultation. - continue broad spectrum antibiotics for possible pneumonia. 7. Dysphagia with PEG. - aspiration precautions 8. History of seizure disorder. Continue patient on Keppra. - seizure precautions 9. Diastolic dysfunction congestive heart failure with preserved ejection fraction of 60%. 10. Possible sepsis. 11. Status post cerebrovascular accident, status post craniotomy. 12. Hypomagnesium- resolved 12. Mental retardation. Per alf notes, patient is DNR with preference for hospitalization, G-tube feeding and IV fluids. Protonix for peptic ulcer disease prophylaxis. Further recommendations based on clinical course. Total critical time spent= 30 mins. Plan of care discussed with Dr. Mcelroy. Subjective 24 Hr Interval Summary Free Text/Dictation nad, lying comfortably, afebrile, no seizures reported, dw staff. Subjective hx not possible: pt non-verbal Constitutional: requiring IVF, requiring O2 Exam/Review of Systems Vital Signs Vitals Vital Signs Date Time Temp Pulse Resp B/P Pulse Ox O2 Delivery O2 Flow Rate FiO2 09/08/16 12:00 84 09/08/16 11:15 14 121/85 98 09/08/16 11:00 Mechanical Ventilator 09/08/16 08:00 97.8 09/08/16 05:53 30 Intake and Output 09/07/16 09/07/16 09/08/16 15:00 23:00 07:00 Intake Total 718.750 ml 1851.5 ml 874.4 ml Output Total 580 ml 215 ml Balance 718.750 ml 1271.5 ml 659.4 ml Exam Constitutional: frail, non-verbal Eyes: nl sclera ENMT: nl external ears & nose Neck: non-tender Respiratory: diminished breath sounds Cardiovascular: nl pulses Gastrointestinal: non-tender, soft Musculoskeletal: muscle weakness Extremities: normal pulses Neurological: confused Lymph: nontender Results Result Diagram: 09/08/16 1210 09/08/16 1210 Results 24 hrs Laboratory Tests Test 09/07/16 17:05 09/08/16 06:00 09/08/16 12:10 Anion Gap 19 H 19 H Basophils # 0.0 Basophils % 0.1 Blood Urea Nitrogen 205 H 184 H Calcium Level 8.6 8.4 Carbon Dioxide Level 25 23 Chloride Level 108 109 Creatinine 3.22 H 3.13 H Eosinophils # 0.0 0.2 Eosinophils % 1.0 4.9 Glucose Level 82 69 #L Hematocrit 18.9 L 28.0 #L Hemoglobin 6.4 *L 9.8 #L Lymphocytes # 0.5 L 0.6 L Lymphocytes % 12.0 L 14.1 L Mean Corpuscular Hemoglobin 30.5 30.7 Mean Corpuscular Hemoglobin Concent 33.9 34.9 Mean Corpuscular Volume 90.0 87.8 Mean Platelet Volume 11.3 H 7.8 # Monocytes # 0.5 0.7 Monocytes % 14.0 H 15.1 H Neutrophils # 2.4 3.0 Neutrophils % 64.0 65.8 Nucleated Red Blood Cells # 0.0 0.0 Nucleated Red Blood Cells % 0.0 0.0 Platelet Count 48 L 47 #L Potassium Level 4.7 4.6 Red Blood Count 2.10 L 3.19 #L Red Cell Distribution Width 14.9 H 14.4 Sodium Level 147 H 146 H White Blood Count 3.8 L 4.6 #L Stool Occult Blood POSITIVE Blood Morphology Comment Magnesium Level 2.4 Medications Medications Current Medications Acetaminophen (Tylenol Liquid) 640 mg Q6H PRN GTB PAIN OR TEMP ABOVE 38C; Start 09/06/16 at 22:30 Allopurinol (Zyloprim) 200 mg DAILY GTB Last administered on 09/08/16 09:11; Admin Dose 200 MG; Start 09/07/16 at 09:00 Ascorbic Acid (Vitamin C) 500 mg BID GTB Last administered on 09/08/16 09:10; Admin Dose 500 MG; Start 09/07/16 at 09:00 Calcitriol (Rocaltrol) 0.25 mcg DAILY GTB Last administered on 09/08/16 09:10 ; Admin Dose 0.25 MCG; Start 09/07/16 at 09:00 Chlorhexidine Gluconate (Peridex) 15 ml BID MM Last administered on 09/08/16 09:11; Admin Dose 15 ML; Start 09/07/16 at 09:00 Famotidine (Pepcid) 40 mg DAILY GTB Last administered on 09/08/16 09:10; Admin Dose 40 MG; Start 09/07/16 at 09:00 Lansoprazole (Prevacid) 30 mg BID@06,18 GTB Last administered on 09/07/16 21: 33; Admin Dose 30 MG; Start 09/07/16 at 06:00 Levetiracetam (Keppra Liquid) 500 mg BID GTB Last administered on 09/08/16 09: 10; Admin Dose 500 MG; Start 09/07/16 at 09:00 Metoclopramide HCl (Reglan) 5 mg Q8H PRN GTB NAUSEA AND/OR VOMITING; Start 09/06 at 22:30 Sucralfate (Carafate Susp) 1 gm BID GTB Last administered on 09/08/16 09:10; Admin Dose 1 GM; Start 09/07/16 at 09:00 Zinc Sulfate 220 mg 220 mg DAILY GTB Last administered on 09/08/16 09:11; Admin Dose 220 MG; Start 09/07/16 at 09:00 Sodium Chloride (NS) 1,000 ml @ 100 mls/hr Q10H IV Last administered on 09:11; Admin Dose 100 MLS/HR; Start 09/06/16 at 22:23 Ondansetron HCl (Zofran Inj) 4 mg Q6H PRN IV NAUSEA AND/OR VOMITING; Start 09/06 at 22:30 Morphine Sulfate (morphine) 2 mg Q4H PRN IV PAIN LEVEL 7-10 Last administered on 09/08/16 01:09; Admin Dose 2 MG; Start 09/06/16 at 22:30 Enoxaparin Sodium 30 mg 30 mg DAILY SC Last administered on 09/08/16 09:15; Admin Dose 30 MG; Start 09/07/16 at 09:00 Norepinephrine (Levophed) 250 ml @ 1.875 mls/ hr TITRATE IV Last administered on 09/08/16 09:16; Admin Dose 9.375 MLS/HR; Start 09/07/16 at 09:00; Stop 09/08 at 11:59 Collagenase 1 applic 1 applic DAILY TOP Last administered on 09/08/16 09:13; Admin Dose 1 APPLIC; Start 09/07/16 at 19:30; Stop 09/15/16 at 11:30 Norepinephrine/ Dextrose (Levophed/D5W) 500 ml @ 1.87 mls/hr TITRATE IV ; Start 09/08/16 at 12:00 KRISTOPHER SOTO Sep 08, 2016 15:12
--- NOTE | 2016-09-08 15:29 | CONS ---
Date/Time of Note Date/Time of Note DATE: 09/08/16 TIME: 15:25 Consult Date/Type/Reason Admit Date/Time Sep 06, 2016 at 22:27 Initial Consult Date 09/07/16 Type of Consultation: Pulm Ordering Provider: FREDDY COELLO MD Subjective No events. On levophed gtt. Objective Vital Signs Date Time Temp Pulse Resp B/P Pulse Ox O2 Delivery O2 Flow Rate FiO2 09/08/16 12:00 84 09/08/16 11:15 14 121/85 98 09/08/16 11:00 Mechanical Ventilator 09/08/16 08:00 97.8 09/08/16 05:53 30 Intake and Output 09/07/16 09/07/16 09/08/16 15:00 23:00 07:00 Intake Total 718.750 ml 1851.5 ml 874.4 ml Output Total 580 ml 215 ml Balance 718.750 ml 1271.5 ml 659.4 ml HEENT: Neck supple; no JVD; no LAD CVS: RRR, S1 and S2 CHEST: + rhonchi ABD: Soft, NT, + BS EXT: contracted; + edema Results/Medications Result Diagram: 09/08/16 1210 09/08/16 1210 Results 24 hrs Laboratory Tests Test 09/07/16 17:05 09/08/16 06:00 09/08/16 12:10 Anion Gap 19 H 19 H Basophils # 0.0 Basophils % 0.1 Blood Urea Nitrogen 205 H 184 H Calcium Level 8.6 8.4 Carbon Dioxide Level 25 23 Chloride Level 108 109 Creatinine 3.22 H 3.13 H Eosinophils # 0.0 0.2 Eosinophils % 1.0 4.9 Glucose Level 82 69 #L Hematocrit 18.9 L 28.0 #L Hemoglobin 6.4 *L 9.8 #L Lymphocytes # 0.5 L 0.6 L Lymphocytes % 12.0 L 14.1 L Mean Corpuscular Hemoglobin 30.5 30.7 Mean Corpuscular Hemoglobin Concent 33.9 34.9 Mean Corpuscular Volume 90.0 87.8 Mean Platelet Volume 11.3 H 7.8 # Monocytes # 0.5 0.7 Monocytes % 14.0 H 15.1 H Neutrophils # 2.4 3.0 Neutrophils % 64.0 65.8 Nucleated Red Blood Cells # 0.0 0.0 Nucleated Red Blood Cells % 0.0 0.0 Platelet Count 48 L 47 #L Potassium Level 4.7 4.6 Red Blood Count 2.10 L 3.19 #L Red Cell Distribution Width 14.9 H 14.4 Sodium Level 147 H 146 H White Blood Count 3.8 L 4.6 #L Stool Occult Blood POSITIVE Blood Morphology Comment Magnesium Level 2.4 Medications Current Medications Acetaminophen (Tylenol Liquid) 640 mg Q6H PRN GTB PAIN OR TEMP ABOVE 38C; Start 09/06/16 at 22:30 Allopurinol (Zyloprim) 200 mg DAILY GTB Last administered on 09/08/16 09:11; Admin Dose 200 MG; Start 09/07/16 at 09:00 Ascorbic Acid (Vitamin C) 500 mg BID GTB Last administered on 09/08/16 09:10; Admin Dose 500 MG; Start 09/07/16 at 09:00 Calcitriol (Rocaltrol) 0.25 mcg DAILY GTB Last administered on 09/08/16 09:10 ; Admin Dose 0.25 MCG; Start 09/07/16 at 09:00 Chlorhexidine Gluconate (Peridex) 15 ml BID MM Last administered on 09/08/16 09:11; Admin Dose 15 ML; Start 09/07/16 at 09:00 Famotidine (Pepcid) 40 mg DAILY GTB Last administered on 09/08/16 09:10; Admin Dose 40 MG; Start 09/07/16 at 09:00 Lansoprazole (Prevacid) 30 mg BID@,18 GTB Last administered on 09/07/16 21: 33; Admin Dose 30 MG; Start 09/07/16 at 06:00 Levetiracetam (Keppra Liquid) 500 mg BID GTB Last administered on 09/08/16 09: 10; Admin Dose 500 MG; Start 09/07/16 at 09:00 Metoclopramide HCl (Reglan) 5 mg Q8H PRN GTB NAUSEA AND/OR VOMITING; Start 09/06 at 22:30 Sucralfate (Carafate Susp) 1 gm BID GTB Last administered on 09/08/16 09:10; Admin Dose 1 GM; Start 09/07/16 at 09:00 Zinc Sulfate 220 mg 220 mg DAILY GTB Last administered on 09/08/16 09:11; Admin Dose 220 MG; Start 09/07/16 at 09:00 Sodium Chloride (NS) 1,000 ml @ 100 mls/hr Q10H IV Last administered on 09:11; Admin Dose 100 MLS/HR; Start 09/06/16 at 22:23 Ondansetron HCl (Zofran Inj) 4 mg Q6H PRN IV NAUSEA AND/OR VOMITING; Start 09/06 at 22:30 Morphine Sulfate (morphine) 2 mg Q4H PRN IV PAIN LEVEL 7-10 Last administered on 09/08/16 01:09; Admin Dose 2 MG; Start 09/06/16 at 22:30 Enoxaparin Sodium 30 mg 30 mg DAILY SC Last administered on 09/08/16 09:15; Admin Dose 30 MG; Start 09/07/16 at 09:00 Norepinephrine (Levophed) 250 ml @ 1.875 mls/ hr TITRATE IV Last administered on 09/08/16 09:16; Admin Dose 9.375 MLS/HR; Start 09/07/16 at 09:00; Stop 09/08 at 11:59 Collagenase 1 applic 1 applic DAILY TOP Last administered on 09/08/16 09:13; Admin Dose 1 APPLIC; Start 09/07/16 at 19:30; Stop 09/15/16 at 11:30 Norepinephrine/ Dextrose (Levophed/D5W) 500 ml @ 1.87 mls/hr TITRATE IV ; Start 09/08/16 at 12:00 Assessment/Plan Additional Assessment/Plan IMPRESSION 1. Septic Shock 2. Multiple other comorbidities including severe CVA and severe anoxic encephalopathy. 3. Stable seizure disorder. 4. VDRF 5. Pancytopenia. 6. Renal Failure. RECS: 1. Levophed gtt; titrate to MAP > 65 mm Hg 2. Abx per ID 3. f/u cultures 4. Lactate clearance 5. am labs; DIC panel; CXR 35 min CC time ADAMARIS BROOKS MD Sep 08, 2016 15:29
[2016-09-08] MEDS: LANSOPRAZOLE 30 MG CAP GTB SCH (17:22)
--- NOTE | 2016-09-08 23:19 | RADRPT ---
PROCEDURE: XR Chest. CLINICAL INDICATION: Shortness of breath. TECHNIQUE: AP Portable chest. COMPARISON: 09/07/2016 FINDINGS: Was marked cardiomegaly is again noted. Lung volumes are diminished. There is moderate pulmonary v ascular congestion. Opacities are noted at the lung bases. The osseous structures are unremarkable . A tracheostomy tube tip is again seen in the mid trachea. IMPRESSION: Unchanged moderate pulmonary vascular congestion and basilar opacities likely due to effusions and a telectasis. RPTAT: HIKT .Kofi Orozco MD, MD Date Time Electronically viewed and signed by .Kofi Orozco MD, MD on 09/08/2016 23:18 .T/
[2016-09-09] VITALS (72 sets, daily range): BP systolic 87–136; BP diastolic 51–100; PULSE 50–106; RESP 12–30
[2016-09-09] MEDS: SOD CHLORIDE 0.9% 1,000 ML IV SCH (00:23)
[2016-09-09] MEDS: morphine 2 MG INJ IV PRN (01:33)
[2016-09-09 05:15] LABS: AADO2 Arterial 85.2 mmHg (7.0-24.0); Allen Test ACCEPTAB; Arterial Base Excess -2.3 mmol/L (-3.0-3); Arterial COHb 0.6 % (0.0-3.0); Arterial Fraction of Oxyhgb 94.8 % (93.0-99.0); Arterial HCO3 22.3 mmol/L (22.0-26.0); Arterial MetHb 0.3 % (0.0-1.5); Arterial Total Hemglobin 10.3 g/dl (12.0-18.0); MODE VENT - AC
[2016-09-09 05:50] LABS: BASOPHILS % 0.4 % (0.0-2.0); EOSINOPHILS # 0.1 10^3/ul (0.0-0.5); EOSINOPHILS % 3.6 % (0.0-7.0); HEMATOCRIT 26.5 % (42.0-52.0); HEMOGLOBIN 9.3 g/dl (14.0-18.0); LYMPHOCYTES # 0.6 10^3/ul (0.8-2.9); LYMPHOCYTES % 14.8 % (15.0-51.0); MEAN CORPUSCULAR HEMOGLOBIN 30.8 pg (29.0-33.0); MEAN CORPUSCULAR HGB CONC 34.9 g/dl (32.0-37.0); MEAN CORPUSCULAR VOLUME 88.2 fl (82.0-101.0); MEAN PLATELET VOLUME 8.9 fl (7.4-10.4); MONOCYTE # 0.5 10^3/ul (0.3-0.9); MONOCYTES % 13.8 % (0.0-11.0); NEUTROPHIL # 2.6 10^3/ul (1.6-7.5); NEUTROPHILS % 67.4 % (39.0-77.0); RED BLOOD COUNT 3.01 10^6/ul (4.70-6.10); RED CELL DISTRIBUTION WIDTH 15.1 % (11.5-14.5); UNCORRECTED WBC 3.8 10^3/ul (4.8-10.8); WHITE BLOOD COUNT 3.8 10^3/ul (4.8-10.8)
[2016-09-09 06:00] LABS: POTASSIUM 4.4 mmol/L (3.5-5.1)
[2016-09-09 06:02] LABS: ALBUMIN/GLOBULIN RATIO 0.51; CREATININE 3.12 mg/dl (0.61-1.24); TOTAL PROTEIN 5.9 g/dl (6.1-8.1)
[2016-09-09 06:03] LABS: CALCIUM 8.4 mg/dl (8.4-10.2)
[2016-09-09] MEDS: LANSOPRAZOLE 30 MG CAP GTB SCH ×2 (06:13→17:30)
[2016-09-09 06:18] LABS: CONDITION 1; LH ANALYZER COMMENTS 1
[2016-09-09 06:21] LABS: PLATELET COUNT 29 10^3/UL (140-440)
[2016-09-09] MEDS: ENOXAPARIN 30 MG/0.3 ML SYG SC SCH (08:29)
[2016-09-09] MEDS: SUCRALFATE (100 MG/ML) 10ML CUP GTB SCH ×2 (08:42→20:34)
[2016-09-09] MEDS: ZINC SULFATE 220 MG CAP GTB SCH (08:42)
[2016-09-09] MEDS: CALCITRIOL 0.25 MCG CAP GTB SCH (08:42)
[2016-09-09] MEDS: CHLORHEXIDINE GLUCONATE 15 ML UD CUP MM SCH ×2 (08:42→20:35)
[2016-09-09] MEDS: LEVETIRACETAM (100 MG/ML) 5ML CUP GTB SCH ×2 (08:42→20:34)
[2016-09-09] MEDS: FAMOTIDINE 20 MG TAB GTB SCH (08:43)
[2016-09-09] MEDS: ALLOPURINOL 100 MG TAB GTB SCH (08:43)
[2016-09-09] MEDS: SEVELAMER CARBONATE 2.4 GM PKT GTB SCH ×3 (08:43→17:30)
[2016-09-09] MEDS: ASCORBIC ACID 500 MG TAB GTB SCH ×2 (08:43→20:34)
[2016-09-09] MEDS: COLLAGENASE 30 GM TUBE TOP SCH ×2 (09:00→17:31)
--- NOTE | 2016-09-09 10:29 | CONS ---
Date/Time of Note Date/Time of Note DATE: 09/09/16 TIME: 10:22 Assessment/Plan Assessment/Plan Additional Assessment/Plan 1. Acute kidney injury on possible chronic kidney disease secondary to severe prerenal azotemia causing ischemic acute tubular necrosis in the setting of severe anemia. 2. Severe anemia, rule out gastrointestinal bleeding.s/p PRBC yesterday 3. Chronic respiratory failure, status post tracheostomy, on vent. 4. Pancytopenia. 5. History of a seizure disorder. 6. Possible concern about septic shock. PLAN: s/p PRBC- now Hb 9.3 BUN/Cr slowly improving switch IVF from NS to D5W Start Bicitra 30ml PO TID increase free water flush G tube 200 cc Q 4 hr Expecting BUn/Cr to improve pt has K normal, no plan for HD at this point Blood transfusion plan as per GI and Primary care Consultation Date/Type/Reason Admit Date/Time Sep 06, 2016 at 22:27 Initial Consult Date 09/07/16 Type of Consultation: NEPHROLOGY Referring Provider: FREDDY COELLO MD 24 HR Interval Summary Free Text/Dictation pt remained stable, hb stable after PRBC, Cr around 3.2 but BUN improved to 182 , Na 147 Exam/Review of Systems Vital Signs Vitals Vital Signs Date Time Temp Pulse Resp B/P Pulse Ox O2 Delivery O2 Flow Rate FiO2 09/09/16 08:30 90 18 112/63 98 09/09/16 08:00 97.9 Mechanical Ventilator 09/09/16 05:20 30 Intake and Output 09/08/16 09/08/16 09/09/16 15:00 23:00 07:00 Intake Total 1626.2 ml 1307.45 ml Output Total 220 ml 210 ml 205 ml Balance -220 ml 1416.2 ml 1102.45 ml Exam GENERAL: The patient is currently on ventilator. HEENT: Tracheostomy site is clear in place. LUNGS: Bilateral coarse breath sounds present. HEART: S1, S2, tachycardia. ABDOMEN: Soft. G-tube is in place. EXTREMITIES: Dry skin. NEUROLOGICAL: Uncooperative for exam. SKIN: Multiple pressure ulcers. Results Result Diagram: 09/09/16 0515 09/09/16 0515 Results 24 hrs Laboratory Tests Test 09/08/16 12:10 09/08/16 20:52 09/09/16 05:00 09/09/16 05:15 Anion Gap 19 H 19 H Basophils # 0.0 0.0 Basophils % 0.1 0.4 Blood Morphology Comment Blood Urea Nitrogen 184 H 182 H Calcium Level 8.4 8.4 Carbon Dioxide Level 23 22 Chloride Level 109 110 Creatinine 3.13 H 3.12 H Eosinophils # 0.2 0.1 Eosinophils % 4.9 3.6 Glucose Level 69 #L 56 #L Hematocrit 28.0 #L 26.5 L Hemoglobin 9.8 #L 9.3 L Lymphocytes # 0.6 L 0.6 L Lymphocytes % 14.1 L 14.8 L Magnesium Level 2.4 Mean Corpuscular Hemoglobin 30.7 30.8 Mean Corpuscular Hemoglobin Concent 34.9 34.9 Mean Corpuscular Volume 87.8 88.2 Mean Platelet Volume 7.8 # 8.9 Monocytes # 0.7 0.5 Monocytes % 15.1 H 13.8 H Neutrophils # 3.0 2.6 Neutrophils % 65.8 67.4 Nucleated Red Blood Cells # 0.0 0.0 Nucleated Red Blood Cells % 0.0 0.0 Platelet Count 47 #L 29 #*L Potassium Level 4.6 4.4 Red Blood Count 3.19 #L 3.01 L Red Cell Distribution Width 14.4 15.1 H Sodium Level 146 H 147 H White Blood Count 4.6 #L 3.8 L Bedside Glucose 85 Arterial Blood HCO3 22.3 Arterial Blood Base Excess -2.3 Arterial Blood Oxygen Saturation 95.7 Tremaine Test ACCEPTAB Arterial Blood Gas Puncture Site Right Radial Arterial Blood Carboxyhemoglobin 0.6 Arterial Blood Date Drawn 09/09/2016 4:50:07 AM Arterial Blood Methemoglobin 0.3 Arterial Blood pCO2 (Temp correct) 37.3 Arterial Blood pH (Temp corrected) 7.394 Arterial Blood pO2 (Temp corrected) 84.9 Blood Gas A-a O2 Differential 85.2 H Blood Gas Actual Respiration Rate 14 Blood Gas Low PEEP Setting 5.0 Blood Gas Modality VENT - AC Blood Gas Notified Time 09/09/2016 5:15:45 AM Blood Gas Notified Whom MG Blood Gas Respiration Rate 14.0 Blood Gas Specimen Source Blood arterial Blood Gas Temperature 37.0 Blood Gas Tidal Volume 550.0 FiO2 30.0 Oxyhemoglobin Percent 94.8 Total Hemoglobin 10.3 L Alanine Aminotransferase (ALT/SGPT) 21 Albumin 2.0 L Albumin/Globulin Ratio 0.51 Alkaline Phosphatase 97 Aspartate Amino Transf (AST/SGOT) 16 Direct Bilirubin 0.00 Globulin 3.90 H Indirect Bilirubin 0.0 Lactic Acid Level 0.5 Total Bilirubin 0.0 L Total Protein 5.9 L Test 09/09/16 07:12 Bedside Glucose 73 Medications Medications Current Medications Acetaminophen (Tylenol Liquid) 640 mg Q6H PRN GTB PAIN OR TEMP ABOVE 38C; Start 09/06/16 at 22:30 Allopurinol (Zyloprim) 200 mg DAILY GTB Last administered on 09/09/16 08:43; Admin Dose 200 MG; Start 09/07/16 at 09:00 Ascorbic Acid (Vitamin C) 500 mg BID GTB Last administered on 09/09/16 08:43; Admin Dose 500 MG; Start 09/07/16 at 09:00 Calcitriol (Rocaltrol) 0.25 mcg DAILY GTB Last administered on 09/09/16 08:42 ; Admin Dose 0.25 MCG; Start 09/07/16 at 09:00 Chlorhexidine Gluconate (Peridex) 15 ml BID MM Last administered on 09/09/16 08:42; Admin Dose 15 ML; Start 09/07/16 at 09:00 Famotidine (Pepcid) 40 mg DAILY GTB Last administered on 09/09/16 08:43; Admin Dose 40 MG; Start 09/07/16 at 09:00 Lansoprazole (Prevacid) 30 mg BID@,18 GTB Last administered on 09/09/16 06: 13; Admin Dose 30 MG; Start 09/07/16 at 06:00 Levetiracetam (Keppra Liquid) 500 mg BID GTB Last administered on 09/09/16 08: 42; Admin Dose 500 MG; Start 09/07/16 at 09:00 Metoclopramide HCl (Reglan) 5 mg Q8H PRN GTB NAUSEA AND/OR VOMITING; Start 09/06 at 22:30 Sucralfate (Carafate Susp) 1 gm BID GTB Last administered on 09/09/16 08:42; Admin Dose 1 GM; Start 09/07/16 at 09:00 Zinc Sulfate 220 mg 220 mg DAILY GTB Last administered on 09/09/16 08:42; Admin Dose 220 MG; Start 09/07/16 at 09:00 Sodium Chloride (NS) 1,000 ml @ 100 mls/hr Q10H IV Last administered on 09:11; Admin Dose 100 MLS/HR; Start 09/06/16 at 22:23 Ondansetron HCl (Zofran Inj) 4 mg Q6H PRN IV NAUSEA AND/OR VOMITING; Start 09/06 at 22:30 Morphine Sulfate 2 mg 2 mg Q4H PRN IV PAIN LEVEL 7-10 Last administered on 09/09 01:33; Admin Dose 2 MG; Start 09/06/16 at 22:30 Norepinephrine (Levophed) 250 ml @ 1.875 mls/ hr TITRATE IV Last administered on 09/08/16 09:16; Admin Dose 9.375 MLS/HR; Start 09/07/16 at 09:00; Stop 09/08 at 11:59 Collagenase 1 applic 1 applic DAILY TOP Last administered on 09/08/16 09:13; Admin Dose 1 APPLIC; Start 09/07/16 at 19:30; Stop 09/15/16 at 11:30 Norepinephrine/ Dextrose (Levophed/D5W) 500 ml @ 1.87 mls/hr TITRATE IV ; Start 09/08/16 at 12:00 KENIA TURCIOS MD Sep 09, 2016 10:29
[2016-09-09] MEDS ORDERED: CITRIC ACID/NA CITRATE 30 ML CUP PO ONE (10:30)
[2016-09-09] MEDS ORDERED: ALBUMIN HUMAN 25% 100 ML IV ONE (10:30)
[2016-09-09] MEDS ORDERED: FUROSEMIDE 20 MG INJ IV ONE (10:30)
[2016-09-09] MEDS: DEXTROSE 5% 1,000 ML IV SCH (10:35)
--- NOTE | 2016-09-09 11:14 | CONS ---
Date/Time of Note Date/Time of Note DATE: 09/09/16 TIME: 11:12 Assessment/Plan Assessment/Plan Chief Complaint/Hosp Course ID PROGRESS NOTE TOTAL ABX DAY # Cefepime + Vanco IV 24H INTERVAL SUMMARY * Clinically status quo -- chronic debilitated obese M * PLT down, stable, Noncommunicative, VSS, NAD * Trach, peg, Left IJ TLC, multiple decubs noted and photos reviewed Thanh: 09/06/16 Rcvd: 09/06/16 Source: SPUTUM Sp Descrip: Procedure Result Microbiology RESPIRATORY CULTURE Preliminary Organism 1 GRAM NEGATIVE REBEKAH QUANTITY 2+ Organism 2 NON LACTOSE FERMENTING GNR QUANTITY 2+ PHYSICAL EXAMINATION: GENERAL: VSS, NAD HEENT: Unremarkable NECK: Trach-> Vent secure CHEST: Rise symmetrical - Course BS HEART: RRR ABDOMEN: Soft, EXTREMITIES: Warm, ID ASSESSMENT: 56 yo M w/PMHx INITIAL IMPRESSION: 1. Hypovolemia due to gastrointestinal bleeding due to thrombocytopenia. 2. High output congestive heart failure. 3. Azotemia. 4. Stage IV chronic kidney disease. 5. Pancytopenia. 6. Vent-dependent respiratory failure. 7. Dysphagia/old cerebrovascular accident. 8. Decubitus ulcers, bilateral trochanteric, heels, back 9. Seizure disorder. 10. Gout. (-)MRSA Nares INVASIVES: *Trach, Peg, FC, L-IJ TLC ABX ALLERGIES: PCN, Macrolides, Erythromycin base CURRENT ABX: Cefepime + Vanco IV ID RECOMMENDATIONS: Continue current ABX, non-aggressive care . Problems: Consultation Date/Type/Reason Admit Date/Time Sep 06, 2016 at 22:27 Initial Consult Date 09/07/16 Type of Consultation: id Referring Provider: FREDDY COELLO MD Exam/Review of Systems Vital Signs Vitals Vital Signs Date Time Temp Pulse Resp B/P Pulse Ox O2 Delivery O2 Flow Rate FiO2 09/09/16 08:30 90 18 112/63 98 09/09/16 08:00 97.9 Mechanical Ventilator 09/09/16 05:20 30 Intake and Output 09/08/16 09/08/16 09/09/16 15:00 23:00 07:00 Intake Total 1626.2 ml 1307.45 ml Output Total 220 ml 210 ml 205 ml Balance -220 ml 1416.2 ml 1102.45 ml Results Result Diagram: 09/09/1615 09/09/1615 Results 24 hrs Laboratory Tests Test 09/08/16 12:10 09/08/16 20:52 09/09/16 05:00 09/09/16 05:15 Anion Gap 19 H 19 H Basophils # 0.0 0.0 Basophils % 0.1 0.4 Blood Morphology Comment Blood Urea Nitrogen 184 H 182 H Calcium Level 8.4 8.4 Carbon Dioxide Level 23 22 Chloride Level 109 110 Creatinine 3.13 H 3.12 H Eosinophils # 0.2 0.1 Eosinophils % 4.9 3.6 Glucose Level 69 #L 56 #L Hematocrit 28.0 #L 26.5 L Hemoglobin 9.8 #L 9.3 L Lymphocytes # 0.6 L 0.6 L Lymphocytes % 14.1 L 14.8 L Magnesium Level 2.4 Mean Corpuscular Hemoglobin 30.7 30.8 Mean Corpuscular Hemoglobin Concent 34.9 34.9 Mean Corpuscular Volume 87.8 88.2 Mean Platelet Volume 7.8 # 8.9 Monocytes # 0.7 0.5 Monocytes % 15.1 H 13.8 H Neutrophils # 3.0 2.6 Neutrophils % 65.8 67.4 Nucleated Red Blood Cells # 0.0 0.0 Nucleated Red Blood Cells % 0.0 0.0 Platelet Count 47 #L 29 #*L Potassium Level 4.6 4.4 Red Blood Count 3.19 #L 3.01 L Red Cell Distribution Width 14.4 15.1 H Sodium Level 146 H 147 H White Blood Count 4.6 #L 3.8 L Bedside Glucose 85 Arterial Blood HCO3 22.3 Arterial Blood Base Excess -2.3 Arterial Blood Oxygen Saturation 95.7 Tremaine Test ACCEPTAB Arterial Blood Gas Puncture Site Right Radial Arterial Blood Carboxyhemoglobin 0.6 Arterial Blood Date Drawn 09/09/2016 4:50:07 AM Arterial Blood Methemoglobin 0.3 Arterial Blood pCO2 (Temp correct) 37.3 Arterial Blood pH (Temp corrected) 7.394 Arterial Blood pO2 (Temp corrected) 84.9 Blood Gas A-a O2 Differential 85.2 H Blood Gas Actual Respiration Rate 14 Blood Gas Low PEEP Setting 5.0 Blood Gas Modality VENT - AC Blood Gas Notified Time 09/09/2016 5:15:45 AM Blood Gas Notified Whom MG Blood Gas Respiration Rate 14.0 Blood Gas Specimen Source Blood arterial Blood Gas Temperature 37.0 Blood Gas Tidal Volume 550.0 FiO2 30.0 Oxyhemoglobin Percent 94.8 Total Hemoglobin 10.3 L Alanine Aminotransferase (ALT/SGPT) 21 Albumin 2.0 L Albumin/Globulin Ratio 0.51 Alkaline Phosphatase 97 Aspartate Amino Transf (AST/SGOT) 16 Direct Bilirubin 0.00 Globulin 3.90 H Indirect Bilirubin 0.0 Lactic Acid Level 0.5 Total Bilirubin 0.0 L Total Protein 5.9 L Test 09/09/16 07:12 Bedside Glucose 73 Medications Medications Current Medications Acetaminophen (Tylenol Liquid) 640 mg Q6H PRN GTB PAIN OR TEMP ABOVE 38C; Start 09/06/16 at 22:30 Allopurinol (Zyloprim) 200 mg DAILY GTB Last administered on 09/09/16 08:43; Admin Dose 200 MG; Start 09/07/16 at 09:00 Ascorbic Acid (Vitamin C) 500 mg BID GTB Last administered on 09/09/16 08:43; Admin Dose 500 MG; Start 09/07/16 at 09:00 Calcitriol (Rocaltrol) 0.25 mcg DAILY GTB Last administered on 09/09/16 08:42 ; Admin Dose 0.25 MCG; Start 09/07/16 at 09:00 Chlorhexidine Gluconate (Peridex) 15 ml BID MM Last administered on 09/09/16 08:42; Admin Dose 15 ML; Start 09/07/16 at 09:00 Famotidine (Pepcid) 40 mg DAILY GTB Last administered on 09/09/16 08:43; Admin Dose 40 MG; Start 09/07/16 at 09:00 Lansoprazole (Prevacid) 30 mg BID@,18 GTB Last administered on 09/09/16 06: 13; Admin Dose 30 MG; Start 09/07/16 at 06:00 Levetiracetam (Keppra Liquid) 500 mg BID GTB Last administered on 09/09/16 08: 42; Admin Dose 500 MG; Start 09/07/16 at 09:00 Metoclopramide HCl (Reglan) 5 mg Q8H PRN GTB NAUSEA AND/OR VOMITING; Start 09/06 at 22:30 Sucralfate (Carafate Susp) 1 gm BID GTB Last administered on 09/09/16 08:42; Admin Dose 1 GM; Start 09/07/16 at 09:00 Zinc Sulfate (Zinc Sulfate) 220 mg DAILY GTB Last administered on 09/09/16 08: 42; Admin Dose 220 MG; Start 09/07/16 at 09:00 Ondansetron HCl (Zofran Inj) 4 mg Q6H PRN IV NAUSEA AND/OR VOMITING; Start 09/06 at 22:30 Morphine Sulfate 2 mg 2 mg Q4H PRN IV PAIN LEVEL 7-10 Last administered on 09/09 01:33; Admin Dose 2 MG; Start 09/06/16 at 22:30 Norepinephrine (Levophed) 250 ml @ 1.875 mls/ hr TITRATE IV Last administered on 09/08/16 09:16; Admin Dose 9.375 MLS/HR; Start 09/07/16 at 09:00; Stop 09/08 at 11:59 Collagenase 1 applic 1 applic DAILY TOP Last administered on 09/08/16 09:13; Admin Dose 1 APPLIC; Start 09/07/16 at 19:30; Stop 09/15/16 at 11:30 Norepinephrine 16 mg/Dextrose 500 ml @ 1.87 mls/hr TITRATE IV ; Start 09/08/16 at 12:00 Dextrose 1,000 ml @ 70 mls/hr [id number] IV Last administered on 09/09/16 10:35 ; Admin Dose 70 MLS/HR; Start 09/09/16 at 10:30 Albumin Human (Albumin Human 25%) 100 ml @ 100 mls/hr ONCE ONCE IV Last administered on 09/09/16 11:07; Admin Dose 100 MLS/HR; Start 09/09/16 at 10:30 ; Stop 09/09/16 at 11:29 Furosemide (Lasix) 20 mg ONCE ONCE IV ; Start 09/09/16 at 10:30; Stop 09/09/16 at 10:31 Citric Acid/ Sodium Citrate (Bicitra) 30 ml ONCE ONCE PO ; Start 09/09/16 at 10 :30; Stop 09/09/16 at 10:31 Citric Acid/ Sodium Citrate (Bicitra) 30 ml TID PO ; Start 09/09/16 at 13:00 IRINA VARGHESE NP Sep 09, 2016 11:14
--- NOTE | 2016-09-09 11:54 | CONS ---
Date/Time of Note Date/Time of Note DATE: 09/09/16 TIME: 11:50 Consult Date/Type/Reason Admit Date/Time Sep 06, 2016 at 22:27 Initial Consult Date 09/07/16 Type of Consultation: Pulm Ordering Provider: FREDDY COELLO MD Subjective No events. Remains unresponsive on mechanical ventilation. Objective Vital Signs Date Time Temp Pulse Resp B/P Pulse Ox O2 Delivery O2 Flow Rate FiO2 09/09/16 08:30 90 18 112/63 98 09/09/16 08:00 30 09/09/16 08:00 97.9 Mechanical Ventilator Intake and Output 09/08/16 09/08/16 09/09/16 15:00 23:00 07:00 Intake Total 1626.2 ml 1307.45 ml Output Total 220 ml 210 ml 205 ml Balance -220 ml 1416.2 ml 1102.45 ml HEENT: Neck supple; no JVD; no LAD CVS: RRR, S1 and S2 CHEST: + rhonchi b/l ABD: Soft, NT, + BS EXT: contracted; + edema Results/Medications Result Diagram: 09/09/1615 09/09/1615 Results 24 hrs Laboratory Tests Test 09/08/16 12:10 09/08/16 20:52 09/09/16 05:00 09/09/16 05:15 Anion Gap 19 H 19 H Basophils # 0.0 0.0 Basophils % 0.1 0.4 Blood Morphology Comment Blood Urea Nitrogen 184 H 182 H Calcium Level 8.4 8.4 Carbon Dioxide Level 23 22 Chloride Level 109 110 Creatinine 3.13 H 3.12 H Eosinophils # 0.2 0.1 Eosinophils % 4.9 3.6 Glucose Level 69 #L 56 #L Hematocrit 28.0 #L 26.5 L Hemoglobin 9.8 #L 9.3 L Lymphocytes # 0.6 L 0.6 L Lymphocytes % 14.1 L 14.8 L Magnesium Level 2.4 Mean Corpuscular Hemoglobin 30.7 30.8 Mean Corpuscular Hemoglobin Concent 34.9 34.9 Mean Corpuscular Volume 87.8 88.2 Mean Platelet Volume 7.8 # 8.9 Monocytes # 0.7 0.5 Monocytes % 15.1 H 13.8 H Neutrophils # 3.0 2.6 Neutrophils % 65.8 67.4 Nucleated Red Blood Cells # 0.0 0.0 Nucleated Red Blood Cells % 0.0 0.0 Platelet Count 47 #L 29 #*L Potassium Level 4.6 4.4 Red Blood Count 3.19 #L 3.01 L Red Cell Distribution Width 14.4 15.1 H Sodium Level 146 H 147 H White Blood Count 4.6 #L 3.8 L Bedside Glucose 85 Arterial Blood HCO3 22.3 Arterial Blood Base Excess -2.3 Arterial Blood Oxygen Saturation 95.7 Tremaine Test ACCEPTAB Arterial Blood Gas Puncture Site Right Radial Arterial Blood Carboxyhemoglobin 0.6 Arterial Blood Date Drawn 09/09/2016 4:50:07 AM Arterial Blood Methemoglobin 0.3 Arterial Blood pCO2 (Temp correct) 37.3 Arterial Blood pH (Temp corrected) 7.394 Arterial Blood pO2 (Temp corrected) 84.9 Blood Gas A-a O2 Differential 85.2 H Blood Gas Actual Respiration Rate 14 Blood Gas Low PEEP Setting 5.0 Blood Gas Modality VENT - AC Blood Gas Notified Time 09/09/2016 5:15:45 AM Blood Gas Notified Whom MG Blood Gas Respiration Rate 14.0 Blood Gas Specimen Source Blood arterial Blood Gas Temperature 37.0 Blood Gas Tidal Volume 550.0 FiO2 30.0 Oxyhemoglobin Percent 94.8 Total Hemoglobin 10.3 L Alanine Aminotransferase (ALT/SGPT) 21 Albumin 2.0 L Albumin/Globulin Ratio 0.51 Alkaline Phosphatase 97 Aspartate Amino Transf (AST/SGOT) 16 Direct Bilirubin 0.00 Globulin 3.90 H Indirect Bilirubin 0.0 Lactic Acid Level 0.5 Total Bilirubin 0.0 L Total Protein 5.9 L Test 09/09/16 07:12 Bedside Glucose 73 Medications Current Medications Acetaminophen (Tylenol Liquid) 640 mg Q6H PRN GTB PAIN OR TEMP ABOVE 38C; Start 09/06/16 at 22:30 Allopurinol (Zyloprim) 200 mg DAILY GTB Last administered on 09/09/16 08:43; Admin Dose 200 MG; Start 09/07/16 at 09:00 Ascorbic Acid (Vitamin C) 500 mg BID GTB Last administered on 09/09/16 08:43; Admin Dose 500 MG; Start 09/07/16 at 09:00 Calcitriol (Rocaltrol) 0.25 mcg DAILY GTB Last administered on 09/09/16 08:42 ; Admin Dose 0.25 MCG; Start 09/07/16 at 09:00 Chlorhexidine Gluconate (Peridex) 15 ml BID MM Last administered on 09/09/16 08:42; Admin Dose 15 ML; Start 09/07/16 at 09:00 Famotidine (Pepcid) 40 mg DAILY GTB Last administered on 09/09/16 08:43; Admin Dose 40 MG; Start 09/07/16 at 09:00 Lansoprazole (Prevacid) 30 mg BID@,18 GTB Last administered on 09/09/16 06: 13; Admin Dose 30 MG; Start 09/07/16 at 06:00 Levetiracetam (Keppra Liquid) 500 mg BID GTB Last administered on 09/09/16 08: 42; Admin Dose 500 MG; Start 09/07/16 at 09:00 Metoclopramide HCl (Reglan) 5 mg Q8H PRN GTB NAUSEA AND/OR VOMITING; Start 09/06 at 22:30 Sucralfate (Carafate Susp) 1 gm BID GTB Last administered on 09/09/16 08:42; Admin Dose 1 GM; Start 09/07/16 at 09:00 Zinc Sulfate (Zinc Sulfate) 220 mg DAILY GTB Last administered on 09/09/16 08: 42; Admin Dose 220 MG; Start 09/07/16 at 09:00 Ondansetron HCl (Zofran Inj) 4 mg Q6H PRN IV NAUSEA AND/OR VOMITING; Start 09/06 at 22:30 Morphine Sulfate 2 mg 2 mg Q4H PRN IV PAIN LEVEL 7-10 Last administered on 09/09 01:33; Admin Dose 2 MG; Start 09/06/16 at 22:30 Norepinephrine (Levophed) 250 ml @ 1.875 mls/ hr TITRATE IV Last administered on 09/08/16 09:16; Admin Dose 9.375 MLS/HR; Start 09/07/16 at 09:00; Stop 09/08 at 11:59 Collagenase 1 applic 1 applic DAILY TOP Last administered on 09/08/16 09:13; Admin Dose 1 APPLIC; Start 09/07/16 at 19:30; Stop 09/15/16 at 11:30 Norepinephrine 16 mg/Dextrose 500 ml @ 1.87 mls/hr TITRATE IV ; Start 09/08/16 at 12:00 Dextrose 1,000 ml @ 70 mls/hr [id number] IV Last administered on 09/09/16 10:35 ; Admin Dose 70 MLS/HR; Start 09/09/16 at 10:30 Albumin Human (Albumin Human 25%) 100 ml @ 100 mls/hr ONCE ONCE IV Last administered on 09/09/16 11:07; Admin Dose 100 MLS/HR; Start 09/09/16 at 10:30 ; Stop 09/09/16 at 11:29 Furosemide (Lasix) 20 mg ONCE ONCE IV ; Start 09/09/16 at 10:30; Stop 09/09/16 at 10:31 Citric Acid/ Sodium Citrate (Bicitra) 30 ml ONCE ONCE PO Last administered on 09/09/16 11:15; Admin Dose 30 ML; Start 09/09/16 at 10:30; Stop 09/09/16 at 10: 31 Citric Acid/ Sodium Citrate (Bicitra) 30 ml TID PO ; Start 09/09/16 at 13:00 Assessment/Plan Additional Assessment/Plan IMPRESSION 1. Septic Shock--improved 2. Multiple other comorbidities including severe CVA and severe anoxic encephalopathy. 3. Stable seizure disorder. 4. VDRF 5. Pancytopenia 6. Renal Failure RECS: 1. Levophed gtt; titrate to MAP > 65 mm Hg--now off 2. Abx per ID 3. f/u cultures 4. Transfuse plat for Plat < 50 K, only if bleeding actively 5. am labs; DIC panel; CXR 6. place PICC and remove LIJ CVC 35 min CC time ADAMARIS BROOKS MD Sep 09, 2016 11:54
[2016-09-09] MEDS: CITRIC ACID/NA CITRATE 30 ML CUP PO SCH ×2 (12:17→20:35)
--- NOTE | 2016-09-09 16:01 | PN ---
Date/Time of Note Date/Time of Note DATE: 09/09/16 TIME: 15:58 Assessment/Plan VTE Prophylaxis VTE Prophylaxis Intervention: SCD's Lines/Catheters IV Catheter Type (from Nrs): Central Line Central line still needed: Yes Urinary Cath still in place: Yes Reason Cath still needed: urinary retention Assessment/Plan Assessment/Plan 1. Severe anemia. SP transfuse, continue to monitor hemoglobin and hematocrit , obtain stool for OB, Dr. Singh to see patient in gastroenterology consultation. 2. Hypovolemic shock. Continue IV fluids. 3. Acute kidney failure secondary to #1 and #2. I will continue IV fluids, monitor BUN and creatinine. Dr. Mk Purdy will follow patient in nephrology consultation. 4. Pancytopenia. 5. Ventilator-dependent respiratory failure. 6. Possible healthcare-acquired pneumonia. - per Dr. Hansen from pulmonology consultation. Continue ventilator support , bronchodilators. - per Dr. Guy in infectious disease consultation. 7. Dysphagia with PEG. - aspiration precautions 8. History of seizure disorder. - Continue patient on Keppra. - seizure precautions 9. Diastolic dysfunction congestive heart failure with preserved ejection fraction of 60%. 10. Possible sepsis. 11. Status post cerebrovascular accident, status post craniotomy. 12. Hypomagnesium- resolved 12. Mental retardation. Per correction notes, patient is DNR with preference for hospitalization, G-tube feeding and IV fluids. Protonix for peptic ulcer disease prophylaxis. Further recommendations based on clinical course. Total critical time spent= 30 mins. Plan of care discussed with Dr. Mcelroy. Subjective 24 Hr Interval Summary Subjective hx not possible: pt non-verbal Constitutional: requiring IVF, requiring O2 Exam/Review of Systems Vital Signs Vitals Vital Signs Date Time Temp Pulse Resp B/P Pulse Ox O2 Delivery O2 Flow Rate FiO2 09/09/16 15:00 87 14 107/78 97 Mechanical Ventilator 09/09/16 12:00 97.8 09/09/16 11:07 30 Intake and Output 09/08/16 09/08/16 09/09/16 15:00 23:00 07:00 Intake Total 1626.2 ml 1307.45 ml Output Total 220 ml 210 ml 205 ml Balance -220 ml 1416.2 ml 1102.45 ml Exam Constitutional: frail Eyes: nl sclera ENMT: nl external ears & nose Respiratory: diminished breath sounds Cardiovascular: nl pulses Gastrointestinal: non-tender, soft Musculoskeletal: muscle weakness Neurological: lethargic Results Result Diagram: 09/09/16 0515 09/09/16 0515 Results 24 hrs Laboratory Tests Test 09/08/16 20:52 09/09/16 05:00 09/09/16 05:15 09/09/16 07:12 Bedside Glucose 85 73 Arterial Blood HCO3 22.3 Arterial Blood Base Excess -2.3 Arterial Blood Oxygen Saturation 95.7 Tremaine Test ACCEPTAB Arterial Blood Gas Puncture Site Right Radial Arterial Blood Carboxyhemoglobin 0.6 Arterial Blood Date Drawn 09/09/2016 4:50:07 AM Arterial Blood Methemoglobin 0.3 Arterial Blood pCO2 (Temp correct) 37.3 Arterial Blood pH (Temp corrected) 7.394 Arterial Blood pO2 (Temp corrected) 84.9 Blood Gas A-a O2 Differential 85.2 H Blood Gas Actual Respiration Rate 14 Blood Gas Low PEEP Setting 5.0 Blood Gas Modality VENT - AC Blood Gas Notified Time 09/09/2016 5:15:45 AM Blood Gas Notified Whom MG Blood Gas Respiration Rate 14.0 Blood Gas Specimen Source Blood arterial Blood Gas Temperature 37.0 Blood Gas Tidal Volume 550.0 FiO2 30.0 Oxyhemoglobin Percent 94.8 Total Hemoglobin 10.3 L Alanine Aminotransferase (ALT/SGPT) 21 Albumin 2.0 L Albumin/Globulin Ratio 0.51 Alkaline Phosphatase 97 Anion Gap 19 H Aspartate Amino Transf (AST/SGOT) 16 Basophils # 0.0 Basophils % 0.4 Blood Morphology Comment Blood Urea Nitrogen 182 H Calcium Level 8.4 Carbon Dioxide Level 22 Chloride Level 110 Creatinine 3.12 H Direct Bilirubin 0.00 Eosinophils # 0.1 Eosinophils % 3.6 Globulin 3.90 H Glucose Level 56 #L Hematocrit 26.5 L Hemoglobin 9.3 L Indirect Bilirubin 0.0 Lactic Acid Level 0.5 Lymphocytes # 0.6 L Lymphocytes % 14.8 L Mean Corpuscular Hemoglobin 30.8 Mean Corpuscular Hemoglobin Concent 34.9 Mean Corpuscular Volume 88.2 Mean Platelet Volume 8.9 Monocytes # 0.5 Monocytes % 13.8 H Neutrophils # 2.6 Neutrophils % 67.4 Nucleated Red Blood Cells # 0.0 Nucleated Red Blood Cells % 0.0 Platelet Count 29 #*L Potassium Level 4.4 Red Blood Count 3.01 L Red Cell Distribution Width 15.1 H Sodium Level 147 H Total Bilirubin 0.0 L Total Protein 5.9 L White Blood Count 3.8 L Medications Medications Current Medications Acetaminophen (Tylenol Liquid) 640 mg Q6H PRN GTB PAIN OR TEMP ABOVE 38C; Start 09/06/16 at 22:30 Allopurinol (Zyloprim) 200 mg DAILY GTB Last administered on 09/09/16 08:43; Admin Dose 200 MG; Start 09/07/16 at 09:00 Ascorbic Acid (Vitamin C) 500 mg BID GTB Last administered on 09/09/16 08:43; Admin Dose 500 MG; Start 09/07/16 at 09:00 Calcitriol (Rocaltrol) 0.25 mcg DAILY GTB Last administered on 09/09/16 08:42 ; Admin Dose 0.25 MCG; Start 09/07/16 at 09:00 Chlorhexidine Gluconate (Peridex) 15 ml BID MM Last administered on 09/09/16 08:42; Admin Dose 15 ML; Start 09/07/16 at 09:00 Famotidine (Pepcid) 40 mg DAILY GTB Last administered on 09/09/16 08:43; Admin Dose 40 MG; Start 09/07/16 at 09:00 Lansoprazole (Prevacid) 30 mg BID@18 GTB Last administered on 09/09/16 06: 13; Admin Dose 30 MG; Start 09/07/16 at 06:00 Levetiracetam (Keppra Liquid) 500 mg BID GTB Last administered on 09/09/16 08: 42; Admin Dose 500 MG; Start 09/07/16 at 09:00 Metoclopramide HCl (Reglan) 5 mg Q8H PRN GTB NAUSEA AND/OR VOMITING; Start 09/06 at 22:30 Sucralfate (Carafate Susp) 1 gm BID GTB Last administered on 09/09/16 08:42; Admin Dose 1 GM; Start 09/07/16 at 09:00 Zinc Sulfate (Zinc Sulfate) 220 mg DAILY GTB Last administered on 09/09/16 08: 42; Admin Dose 220 MG; Start 09/07/16 at 09:00 Ondansetron HCl (Zofran Inj) 4 mg Q6H PRN IV NAUSEA AND/OR VOMITING; Start 09/06 at 22:30 Morphine Sulfate (morphine) 2 mg Q4H PRN IV PAIN LEVEL 7-10 Last administered on 09/09/16 01:33; Admin Dose 2 MG; Start 09/06/16 at 22:30 Collagenase 1 applic 1 applic DAILY TOP Last administered on 09/08/16 09:13; Admin Dose 1 APPLIC; Start 09/07/16 at 19:30; Stop 09/15/16 at 11:30 Norepinephrine 16 mg/Dextrose 500 ml @ 1.87 mls/hr TITRATE IV ; Start 09/08/16 at 12:00 Dextrose (D5W) 1,000 ml @ 70 mls/hr [id number] IV Last administered on 09/09/16 10:35; Admin Dose 70 MLS/HR; Start 09/09/16 at 10:30 Citric Acid/ Sodium Citrate (Bicitra) 30 ml TID PO Last administered on 12:17; Admin Dose 30 ML; Start 09/09/16 at 13:00 KRISTOPHER SOTO Sep 09, 2016 16:01
--- NOTE | 2016-09-09 18:38 | PN ---
DATE: 09/09/2016 PULMONARY FOLLOWUP NOTE SUBJECTIVE: This patient is well known to me and has been followed by me in the [facility]. Requ ested by Dr. Mcelroy and his nurse practitioner associate, ____, to follow the patient yesterday. OBJECTIVE: GENERAL: The patient is fully responsive. He is on ventilator support. His blood pressure has bee n stable without need for vasopressors. VITAL SIGNS: This morning, his temperature 97.8, blood pressure is 110/68, pulse rate is 72, respir ations 15, and pulse oximetry 99% saturation. NECK: Tracheal secretions are clear. No bleeding is seen. HEART: Regular rhythm with sinus tachycardia intermittently. CHEST: Breath sounds are heard bilaterally, diminished in the lower lung [place], with a few intermi ttent rales and rhonchi. He is breathing comfortably with the ventilator support. ABDOMEN: Soft, not distended. EXTREMITIES: Show spasticity. No edema. LABORATORY DATA: From today show WBC 3800, hemoglobin 9.3, hematocrit 26.5, platelets are decreased to 29,000. The chemistry panel shows sodium 147, potassium 4.4, BUN 182, creatinine 3.1, glucose 5 6, bicarbonate is 22. His albumin is 2. His AST, ALT, and bilirubin are all within normal limits. The arterial blood gases from today shows pH 7.39, pCO2 of 37, pO2 of 84 on 30% oxygen with a rate of 14, his own rate being anywhere between 16 and 18. IMAGING: Chest x-ray taken yesterday is reported to show pulmonary vascular congestion with bibasil ar opacities, probably effusions or atelectasis. This may be chronic finding also seen in the previ ous hospitalization. IMPRESSION: 1. Sepsis. 2. Chronic respiratory failure, ventilator dependent. 3. Acute renal failure. 4. History of seizure disorder. 5. Chronic encephalopathy. 6. Pancytopenia. PLAN AND RECOMMENDATIONS: 1. Continue long-term ventilator support. 2. Continue antibiotics per infectious disease property consultant. 3. Continue IV fluids. 4. Continue supportive therapy. Dictated By: VEENA STREETER MD SR/NTS Conf#: [id number] DID#: [id number] CC: TAI PERRIN MD;*EndCC*
[2016-09-09] MEDS: ONDANSETRON 4 MG INJ IV PRN (22:03)
[2016-09-10] VITALS (45 sets, daily range): BP systolic 103–153; BP diastolic 58–122; PULSE 31–99; RESP 10–20
[2016-09-10] MEDS: DEXTROSE 5% 1,000 ML IV SCH ×2 (00:43→14:36)
[2016-09-10] MEDS: morphine 2 MG INJ IV PRN ×2 (03:30→14:36)
[2016-09-10 06:57] LABS: BASOPHILS % 0.2 % (0.0-2.0); EOSINOPHILS # 0.2 10^3/ul (0.0-0.5); EOSINOPHILS % 4.3 % (0.0-7.0); HEMATOCRIT 25.1 % (42.0-52.0); HEMOGLOBIN 8.8 g/dl (14.0-18.0); LYMPHOCYTES # 0.7 10^3/ul (0.8-2.9); LYMPHOCYTES % 18.6 % (15.0-51.0); MEAN CORPUSCULAR HEMOGLOBIN 31.3 pg (29.0-33.0); MEAN CORPUSCULAR VOLUME 89.4 fl (82.0-101.0); MEAN PLATELET VOLUME 8.8 fl (7.4-10.4); MONOCYTE # 0.5 10^3/ul (0.3-0.9); MONOCYTES % 14.1 % (0.0-11.0); NEUTROPHIL # 2.2 10^3/ul (1.6-7.5); NEUTROPHILS % 62.8 % (39.0-77.0); RED BLOOD COUNT 2.81 10^6/ul (4.70-6.10); RED CELL DISTRIBUTION WIDTH 14.9 % (11.5-14.5); UNCORRECTED WBC 3.6 10^3/ul (4.8-10.8); WHITE BLOOD COUNT 3.6 10^3/ul (4.8-10.8)
[2016-09-10] MEDS: LANSOPRAZOLE 30 MG CAP GTB SCH ×2 (07:02→17:22)
[2016-09-10 07:06] LABS: CONDITION 1; LH ANALYZER COMMENTS 1
[2016-09-10 07:08] LABS: PLATELET COUNT 29 10^3/UL (140-440); POTASSIUM 4.2 mmol/L (3.5-5.1)
[2016-09-10 07:11] LABS: CALCIUM 8.4 mg/dl (8.4-10.2); CREATININE 3.15 mg/dl (0.61-1.24)
[2016-09-10 07:24] LABS: AADO2 Arterial 105.1 mmHg (7.0-24.0); Arterial Base Excess 5.8 mmol/L (-3.0-3); Arterial COHb 0.4 % (0.0-3.0); Arterial Fraction of Oxyhgb 94.2 % (93.0-99.0); Arterial HCO3 28.1 mmol/L (22.0-26.0); Arterial MetHb 0.1 % (0.0-1.5); Arterial Total Hemglobin 15.9 g/dl (12.0-18.0)
[2016-09-10 07:47] LABS: WHITE BLOOD COUNT 2.1 10^3/ul (4.8-10.8)
[2016-09-10] MEDS: CALCITRIOL 0.25 MCG CAP GTB SCH (08:58)
[2016-09-10] MEDS: CITRIC ACID/NA CITRATE 30 ML CUP PO SCH ×3 (08:58→20:16)
[2016-09-10] MEDS: LEVETIRACETAM (100 MG/ML) 5ML CUP GTB SCH ×2 (08:58→20:17)
[2016-09-10] MEDS: ALLOPURINOL 100 MG TAB GTB SCH (08:58)
[2016-09-10] MEDS: FAMOTIDINE 20 MG TAB GTB SCH (08:58)
[2016-09-10] MEDS: SEVELAMER CARBONATE 2.4 GM PKT GTB SCH ×3 (08:58→17:22)
[2016-09-10] MEDS: COLLAGENASE 30 GM TUBE TOP SCH (08:58)
[2016-09-10] MEDS: ASCORBIC ACID 500 MG TAB GTB SCH ×2 (08:58→20:17)
[2016-09-10] MEDS: SUCRALFATE (100 MG/ML) 10ML CUP GTB SCH ×2 (08:58→20:17)
[2016-09-10] MEDS: CHLORHEXIDINE GLUCONATE 15 ML UD CUP MM SCH ×2 (08:58→20:16)
[2016-09-10] MEDS: ZINC SULFATE 220 MG CAP GTB SCH (08:58)
[2016-09-10 10:02] LABS: PLATELET ESTIMATE PLT APPEAR DECREASED
--- NOTE | 2016-09-10 12:06 | PN ---
DATE: 09/10/2016 SUBJECTIVE: The patient remains stable on . No evidence of respiratory distress. Currently h emodynamically stable. OBJECTIVE: VITAL SIGNS: Temperature 97, pulse is 74, blood pressure 145/81, O2 saturation 96%, FIO2 30%. NECK: Trach site clean and intact. CARDIAC: S1, S2, no added sounds or murmurs. CHEST: Diminished air entry bilaterally. ABDOMEN: Soft, nontender. No guarding or rebound. EXTREMITIES: No cyanosis, clubbing, edema. NEUROLOGIC: Generalized weakness. LABORATORIES: White count 3.6, hemoglobin 8.8, platelets of 29, BUN 179, creatinine 3.15, INR 1.3. Urinalysis unremarkable. IMPRESSION AND PLAN: 1. Septic shock. 2. Chronic respiratory failure. 3. Renal insufficiency. 4. History of seizure disorder. PLAN: 1. Continue mechanical ventilation. 2. Pulmonary toilet. 3. DVT and GI prophylaxis. 4. Transfer to telemetry. 5. Consider hematology/oncology evaluation for thrombocytopenia. Dictated By: LELE CHAHAL/NIKOLAI Conf#: [id number] DID#: [id number]
--- NOTE | 2016-09-10 12:16 | PN ---
Date/Time of Note Date/Time of Note DATE: 09/10/16 TIME: 12:06 Assessment/Plan VTE Prophylaxis VTE Prophylaxis Intervention: SCD's Lines/Catheters IV [facility] Type [facility] Saline Lock Urinary Cath still in place: Yes Reason Cath still needed: urinary retention Assessment/Plan Chief Complaint/Hosp Course ASSESSMENT AND PLAN: 1. Severe anemia 2 GI bleed. Continue to monitor hemoglobin and hematocrit. Dr. Singh is following in gastroenterology consultation. 2. Hypovolemic shock, resolving. continue IV fluids. 3. Acute kidney failure secondary to #1 and #2. Continue to monitor BUN and creatinine. Dr. Mk Purdy is following in nephrology consultation. 4. Pancytopenia. 5. Ventilator-dependent respiratory failure. 6. Possible healthcare-acquired pneumonia. Dr. Hansen will be following the patient from pulmonology consultation. Continue ventilator support, bronchodilators. The patient will continue broad spectrum antibiotics for possible pneumonia. 7. Dysphagia with PEG. 8. History of seizure disorder. Continue patient on Keppra. 9. Diastolic dysfunction congestive heart failure with preserved ejection fraction of 60%. 10. Possible sepsis. Dr. Guy is following patient in infectious disease consultation. 11. Status post cerebrovascular accident, status post craniotomy. 12. Mental retardation. 13. DNR status. Continue Protonix for peptic ulcer disease prophylaxis. Further recommendations based on clinical course. Plan of care discussed with Dr. Mcelroy. Problems: Subjective 24 Hr Interval Summary Free Text/Dictation Patient weaned off vasopressors yesterday, vital signs are within normal limits , however patient had a high residual and episode of non-bilious emesis today, GT feeding is held. Exam/Review of Systems Vital Signs Vitals Vital Signs Date Time Temp Pulse Resp B/P Pulse Ox O2 Delivery O2 Flow Rate FiO2 09/10/16 08:46 74 09/10/16 08:00 97.1 16 145/81 100 Mechanical Ventilator 09/10/16 05:40 30 Intake and Output 09/09/16 09/09/16 09/10/16 15:00 23:00 07:00 Intake Total 1255 ml 1035 ml 560 ml Output Total 245 ml 295 ml 330 ml Balance 1010 ml 740 ml 230 ml Exam GENERAL: Well-developed, frail, elderly male, on vent support via tracheostomy HEENT: Head is atraumatic. Pupils are equal and reactive to light and accommodation. Oral mucosa is dry. NECK: Supple. There is a tracheostomy at the base of the neck. CHEST: Lungs are diminished bilaterally. CARDIOVASCULAR: Normal S1, S2. No murmurs, gallops, clicks, rubs noted. ABDOMEN: Abdomen is round, soft, nondistended, nontender. Bowel sounds present. The patient has a G-tube. SKIN: No petechiae present. Patient has multiple decubitus ulcers. Please see wound care notes. EXTREMITIES: Contractures with muscle atrophy. NEUROLOGIC: The patient is awake, alert, opens eyes to commands, nonverbal, does not follow any commands. Results Result Diagram: 09/10/16 0545 09/10/16 0545 Results 24 hrs Laboratory Tests Test 09/10/16 05:45 Anion Gap 17 H Basophils # 0.0 Basophils % 0.2 Blood Morphology Comment Blood Urea Nitrogen 179 H Calcium Level 8.4 Carbon Dioxide Level 23 Chloride Level 108 Creatinine 3.15 H Eosinophils # 0.2 Eosinophils % 4.3 Glucose Level 79 Hematocrit 25.1 L Hemoglobin 8.8 L Lymphocytes # 0.7 L Lymphocytes % 18.6 Mean Corpuscular Hemoglobin 31.3 Mean Corpuscular Hemoglobin Concent 35.0 Mean Corpuscular Volume 89.4 Mean Platelet Volume 8.8 Monocytes # 0.5 Monocytes % 14.1 H Neutrophils # 2.2 Neutrophils % 62.8 Nucleated Red Blood Cells # 0.0 Nucleated Red Blood Cells % 0.0 Platelet Count 29 *L Platelet Estimate PLT APPEAR DECREASED Potassium Level 4.2 Red Blood Count 2.81 L Red Cell Distribution Width 14.9 H Sodium Level 144 White Blood Count 3.6 L Medications Medications Current Medications Acetaminophen (Tylenol Liquid) 640 mg Q6H PRN GTB PAIN OR TEMP ABOVE 38C; Start 09/06/16 at 22:30 Allopurinol (Zyloprim) 200 mg DAILY GTB Last administered on 09/10/16 08:58; Admin Dose 200 MG; Start 09/07/16 at 09:00 Ascorbic Acid (Vitamin C) 500 mg BID GTB Last administered on 09/10/16 08:58; Admin Dose 500 MG; Start 09/07/16 at 09:00 Calcitriol (Rocaltrol) 0.25 mcg DAILY GTB Last administered on 09/10/16 08:58 ; Admin Dose 0.25 MCG; Start 09/07/16 at 09:00 Chlorhexidine Gluconate (Peridex) 15 ml BID MM Last administered on 09/10/16 08:58; Admin Dose 15 ML; Start 09/07/16 at 09:00 Famotidine (Pepcid) 40 mg DAILY GTB Last administered on 09/10/16 08:58; Admin Dose 40 MG; Start 09/07/16 at 09:00 Lansoprazole (Prevacid) 30 mg BID@,18 GTB Last administered on 09/10/16 07: 02; Admin Dose 30 MG; Start 09/07/16 at 06:00 Levetiracetam (Keppra Liquid) 500 mg BID GTB Last administered on 09/10/16 08: 58; Admin Dose 500 MG; Start 09/07/16 at 09:00 Metoclopramide HCl (Reglan) 5 mg Q8H PRN GTB NAUSEA AND/OR VOMITING; Start 09/06 at 22:30 Sucralfate (Carafate Susp) 1 gm BID GTB Last administered on 09/10/16 08:58; Admin Dose 1 GM; Start 09/07/16 at 09:00 Zinc Sulfate (Zinc Sulfate) 220 mg DAILY GTB Last administered on 09/10/16 08: 58; Admin Dose 220 MG; Start 09/07/16 at 09:00 Ondansetron HCl (Zofran Inj) 4 mg Q6H PRN IV NAUSEA AND/OR VOMITING Last administered on 09/09/16 22:03; Admin Dose 4 MG; Start 09/06/16 at 22:30 Morphine Sulfate (morphine) 2 mg Q4H PRN IV PAIN LEVEL 7-10 Last administered on 09/10/16 03:30; Admin Dose 2 MG; Start 09/06/16 at 22:30 Collagenase 1 applic 1 applic DAILY TOP Last administered on 09/10/16 08:58; Admin Dose 1 APPLIC; Start 09/07/16 at 19:30; Stop 09/15/16 at 11:30 Norepinephrine 16 mg/Dextrose 500 ml @ 1.87 mls/hr TITRATE IV ; Start 09/08/16 at 12:00 Dextrose (D5W) 1,000 ml @ 70 mls/hr [id number] IV Last administered on 09/10/16 00:43; Admin Dose 70 MLS/HR; Start 09/09/16 at 10:30 Citric Acid/ Sodium Citrate 30 ml 30 ml TID PO Last administered on 09/10/16 08:58; Admin Dose 30 ML; Start 09/09/16 at 13:00 Cefepime HCl (Maxipime 1gm/50 ml (Pmx)) 50 ml @ 100 mls/hr DAILY IVPB ; Start 09/10/16 at 11:30 QUIN ORTIZ Sep 10, 2016 12:16
--- NOTE | 2016-09-10 12:22 | PN ---
DATE: 09/10/2016 PULMONARY FOLLOWUP NOTE SUBJECTIVE: The patient is in THE ICU on the ventilator support. He is minimally responsive, but d oes not follow. OBJECTIVE: VITAL SIGNS: Show temperature 97.1, blood pressure is 145/81, pulse rate is 72, respirations 16, pu lse oximetry 100% saturation. Blood pressure has been stable without any vasopressor or drugs. NECK: Tracheal secretions are clear. No bleeding is seen. HEART: Regular sinus rhythm. CHEST: Breath sounds are diminished in both the lower lung [place] with a few intermittent rales and rhonchi. ABDOMEN: Soft, not distended. EXTREMITIES: Show spasticity, no edema. G-tube feeding is on hold due to high residuals. LABORATORY TESTS: Show WBC count 3600, hemoglobin 8.8, hematocrit 25.1, platelets are persistently low at 29,000. The chemistry panel from today shows sodium 144, potassium 4.2, BUN 179, very minima lly reduced creatinine of 3.15, almost the same as before. Glucose 79, bicarbonate is 23. Urine culture shows no growth. C difficile is negative in stools and blood culture also shows no gr owth. The sputum culture shows Klebsiella pneumoniae and achromobacter species. Sensitive reports are not available. IMPRESSION: 1. Sepsis. 2. Chronic respiratory failure, ventilator dependent. 3. Acute renal failure. 4. Questionable pneumonia. 5. History of seizure disorder. 6. Chronic encephalopathy. 7. Pancytopenia. RECOMMENDATIONS: 1. Continue long-term ventilator support. 2. Continue antibiotics as per the infectious disease engineering consultant. 3. Continue IV hydration. 4. Continue supportive therapy. Dictated By: VEENA STREETER MD SR/NTS Conf#: [id number] DID#: [id number]
--- NOTE | 2016-09-10 13:05 | PN ---
DATE: 09/10/2016 INFECTIOUS DISEASE PROGRESS NOTE SUBJECTIVE: No acute changes. The patient is lying comfortably in bed. Afebrile. VITAL SIGNS: Temperature 97.7, pulse 74, respirations 16, blood pressure 145/81 , saturation 100 on vent. LABORATORY DATA: WBC 3.6, H and H 8.8 and 25.1, platelets 29. BUN 179, creatinine 3.15. MICROBIOLOGY: Blood cultures since admission had been. Nares swab negative. Sputum culture grew Klebsiella pneumoniae and achromobacter species, multidrug resistant. INDWELLINGS: Trach, PEG, Brar, left IJ triple-lumen catheter. ANTIMICROBIALS: The patient is on antibiotics. DIAGNOSTICS: Chest x-ray revealed pulmonary congestion. PHYSICAL EXAMINATION: GENERAL: This is a fragile, chronically ill-appearing, elderly man who is lying comfortably in bed. HEENT: Head atraumatic, normocephalic. Sclerae anicteric. Buccal mucosa dry. NECK: Supple. Tracheostomy present. CHEST: Rise symmetrical. Breath sounds diminished to bases. HEART: S1, S2. ABDOMEN: Soft. Bowel sounds present. EXTREMITIES: Without cyanosis. Bilateral trace edema. ASSESSMENT: 1. Acute on chronic respiratory failure. 2. Pancytopenia. 3. Stage IV chronic kidney disease. 4. Multiple decubitus. 5. Seizure disorder. 6. ALLERGIC TO ZITHROMAX, ERYTHROMYCIN, AND ZOSYN. PLAN: The patient is clinically stable. He received antibiotics a couple days ago, but then they were discontinued for some reason. He has multiple decubitus. He is growing multidrug-resistant organisms from his sputum that is likely colonized given tracheostomy. We will keep him on cefepime for now. Continue local wound care. Follow recommendations of consultants. We will also add colistin inhalation to cover multidrug-resistant organisms in his sputum. Dictated By: ARUN DIANA ROLE PLAYER for [employer]/NIKOLAI Conf#: [id number] DID#: [id number] MTDD
[2016-09-10] MEDS: CEFEPIME 1GM/50 ML (PMX) 50 ML IVPB SCH (13:15)
--- NOTE | 2016-09-10 13:40 | CONS ---
Date/Time of Note Date/Time of Note DATE: 09/10/16 TIME: 13:38 Assessment/Plan Assessment/Plan Additional Assessment/Plan 1. Acute kidney injury on possible chronic kidney disease secondary to severe prerenal azotemia causing ischemic acute tubular necrosis in the setting of severe anemia. 2. Severe anemia, rule out gastrointestinal bleeding.s/p PRBC yesterday 3. Chronic respiratory failure, status post tracheostomy, on vent. 4. Pancytopenia. 5. History of a seizure disorder. 6. Possible concern about septic shock. PLAN: s/p PRBC- now Hb 9.3 U/o 845 ml BUN/Cr slowly improving- Expecting BUn/Cr to improve continue IVF D5 W on Bicitra 30ml PO TID increased free water flush G tube 200 cc Q 4 hr pt has K normal, no plan for HD at this point Blood transfusion plan as per GI and Primary care Consultation Date/Type/Reason Admit Date/Time Sep 06, 2016 at 22:27 Initial Consult Date 09/07/16 Type of Consultation: NEPHROLOGY Referring Provider: FREDDY COELLO MD 24 HR Interval Summary Free Text/Dictation pt remained stable, BP in systolic Exam/Review of Systems Vital Signs Vitals Vital Signs Date Time Temp Pulse Resp B/P Pulse Ox O2 Delivery O2 Flow Rate FiO2 09/10/16 13:00 70 14 130/66 94 Mechanical Ventilator 09/10/16 12:00 96.8 09/10/16 05:40 30 Intake and Output 09/09/16 09/09/16 09/10/16 15:00 23:00 07:00 Intake Total 1255 ml 1035 ml 560 ml Output Total 245 ml 295 ml 330 ml Balance 1010 ml 740 ml 230 ml Exam GENERAL: The patient is currently on ventilator. HEENT: Tracheostomy site is clear in place. LUNGS: Bilateral coarse breath sounds present. HEART: S1, S2, tachycardia. ABDOMEN: Soft. G-tube is in place. EXTREMITIES: Dry skin. NEUROLOGICAL: Uncooperative for exam. SKIN: Multiple pressure ulcers. Results Result Diagram: 09/10/16 0545 09/10/16 0545 Results 24 hrs Laboratory Tests Test 09/10/16 05:45 Anion Gap 17 H Basophils # 0.0 Basophils % 0.2 Blood Morphology Comment Blood Urea Nitrogen 179 H Calcium Level 8.4 Carbon Dioxide Level 23 Chloride Level 108 Creatinine 3.15 H Eosinophils # 0.2 Eosinophils % 4.3 Glucose Level 79 Hematocrit 25.1 L Hemoglobin 8.8 L Lymphocytes # 0.7 L Lymphocytes % 18.6 Mean Corpuscular Hemoglobin 31.3 Mean Corpuscular Hemoglobin Concent 35.0 Mean Corpuscular Volume 89.4 Mean Platelet Volume 8.8 Monocytes # 0.5 Monocytes % 14.1 H Neutrophils # 2.2 Neutrophils % 62.8 Nucleated Red Blood Cells # 0.0 Nucleated Red Blood Cells % 0.0 Platelet Count 29 *L Platelet Estimate PLT APPEAR DECREASED Potassium Level 4.2 Red Blood Count 2.81 L Red Cell Distribution Width 14.9 H Sodium Level 144 White Blood Count 3.6 L Medications Medications Current Medications Acetaminophen (Tylenol Liquid) 640 mg Q6H PRN GTB PAIN OR TEMP ABOVE 38C; Start 09/06/16 at 22:30 Allopurinol (Zyloprim) 200 mg DAILY GTB Last administered on 09/10/16 08:58; Admin Dose 200 MG; Start 09/07/16 at 09:00 Ascorbic Acid (Vitamin C) 500 mg BID GTB Last administered on 09/10/16 08:58; Admin Dose 500 MG; Start 09/07/16 at 09:00 Calcitriol (Rocaltrol) 0.25 mcg DAILY GTB Last administered on 09/10/16 08:58 ; Admin Dose 0.25 MCG; Start 09/07/16 at 09:00 Chlorhexidine Gluconate (Peridex) 15 ml BID MM Last administered on 09/10/16 08:58; Admin Dose 15 ML; Start 09/07/16 at 09:00 Famotidine (Pepcid) 40 mg DAILY GTB Last administered on 09/10/16 08:58; Admin Dose 40 MG; Start 09/07/16 at 09:00 Lansoprazole (Prevacid) 30 mg BID@18 GTB Last administered on 09/10/16 07: 02; Admin Dose 30 MG; Start 09/07/16 at 06:00 Levetiracetam (Keppra Liquid) 500 mg BID GTB Last administered on 09/10/16 08: 58; Admin Dose 500 MG; Start 09/07/16 at 09:00 Metoclopramide HCl (Reglan) 5 mg Q8H PRN GTB NAUSEA AND/OR VOMITING; Start 09/06 at 22:30 Sucralfate (Carafate Susp) 1 gm BID GTB Last administered on 09/10/16 08:58; Admin Dose 1 GM; Start 09/07/16 at 09:00 Zinc Sulfate (Zinc Sulfate) 220 mg DAILY GTB Last administered on 09/10/16 08: 58; Admin Dose 220 MG; Start 09/07/16 at 09:00 Ondansetron HCl (Zofran Inj) 4 mg Q6H PRN IV NAUSEA AND/OR VOMITING Last administered on 09/09/16 22:03; Admin Dose 4 MG; Start 09/06/16 at 22:30 Morphine Sulfate (morphine) 2 mg Q4H PRN IV PAIN LEVEL 7-10 Last administered on 09/10/16 03:30; Admin Dose 2 MG; Start 09/06/16 at 22:30 Collagenase 1 applic 1 applic DAILY TOP Last administered on 09/10/16 08:58; Admin Dose 1 APPLIC; Start 09/07/16 at 19:30; Stop 09/15/16 at 11:30 Norepinephrine 16 mg/Dextrose 500 ml @ 1.87 mls/hr TITRATE IV ; Start 09/08/16 at 12:00 Dextrose (D5W) 1,000 ml @ 70 mls/hr [id number] IV Last administered on 09/10/16 00:43; Admin Dose 70 MLS/HR; Start 09/09/16 at 10:30 Citric Acid/ Sodium Citrate 30 ml 30 ml TID PO Last administered on 09/10/16 13:15; Admin Dose 30 ML; Start 09/09/16 at 13:00 Cefepime HCl (Maxipime 1gm/50 ml (Pmx)) 50 ml @ 100 mls/hr DAILY IVPB Last administered on 09/10/16 13:15; Admin Dose 100 MLS/HR; Start 09/10/16 at 11:30 KENIA TURCIOS MD Sep 10, 2016 13:40
[2016-09-10] MEDS ORDERED: METOCLOPRAMIDE 10 MG INJ IV PRN (19:00)
--- NOTE | 2016-09-10 22:06 | CONS ---
DATE OF ADMISSION: 09/06/2016 DATE OF CONSULTATION: SUBJECTIVE: The patient is unresponsive. The patient was admitted with severe anemia probably part of the pancytopenia, etiology not known. Hemoglobin was 3.0 on admission, today after transfusion the hemoglobin is 8.8. PHYSICAL EXAMINATION: GENERAL: The patient is unresponsive. CARDIOVASCULAR: Normal heart sounds. RESPIRATORY: Normal breath sounds. ABDOMEN: Showed unremarkable findings. RECTAL: Exam is deferred. LABORATORY WORKUP: Hemoglobin 8.8, WBC is 3600, platelet count is 29,000. CLINICAL IMPRESSION: Anemia secondary to pancytopenia. Rule out gastrointestinal causes. PLAN: At this time, recommend continue supportive therapy. The patient's family is still not inter ested in aggressive endoscopic workup. Dictated By: GEORGE DOS SANTOS MD NC/NTS Conf#: [id number] DID#: [id number] CC: GEORGE DOS SANTOS MD; TAI PERRIN MD;*EndCC*
[2016-09-11] VITALS (24 sets, daily range): BP systolic 92–142; BP diastolic 63–112; PULSE 82–100; RESP 14–19
[2016-09-11 00:26] LABS: POTASSIUM 3.9 mmol/L (3.5-5.1)
[2016-09-11 00:29] LABS: CREATININE 3.11 mg/dl (0.61-1.24)
[2016-09-11 00:30] LABS: CALCIUM 8.3 mg/dl (8.4-10.2)
[2016-09-11 00:39] LABS: MAGNESIUM 2.2 mg/dl (1.7-2.5)
[2016-09-11] MEDS: DEXTROSE 5% 1,000 ML IV SCH ×2 (05:05→21:49)
[2016-09-11] MEDS: LANSOPRAZOLE 30 MG CAP GTB SCH ×2 (06:08→17:55)
[2016-09-11 07:11] LABS: BASOPHILS % 0.1 % (0.0-2.0); EOSINOPHILS # 0.1 10^3/ul (0.0-0.5); EOSINOPHILS % 2.4 % (0.0-7.0); HEMATOCRIT 26.6 % (42.0-52.0); HEMOGLOBIN 9.1 g/dl (14.0-18.0); LYMPHOCYTES # 0.5 10^3/ul (0.8-2.9); LYMPHOCYTES % 8.3 % (15.0-51.0); MEAN CORPUSCULAR HEMOGLOBIN 30.8 pg (29.0-33.0); MEAN CORPUSCULAR HGB CONC 34.1 g/dl (32.0-37.0); MEAN CORPUSCULAR VOLUME 90.5 fl (82.0-101.0); MEAN PLATELET VOLUME 9.8 fl (7.4-10.4); MONOCYTE # 0.5 10^3/ul (0.3-0.9); MONOCYTES % 8.4 % (0.0-11.0); NEUTROPHIL # 4.5 10^3/ul (1.6-7.5); NEUTROPHILS % 80.8 % (39.0-77.0); RED BLOOD COUNT 2.94 10^6/ul (4.70-6.10); RED CELL DISTRIBUTION WIDTH 15.1 % (11.5-14.5); UNCORRECTED WBC 5.6 10^3/ul (4.8-10.8); WHITE BLOOD COUNT 5.6 10^3/ul (4.8-10.8)
[2016-09-11 07:18] LABS: POTASSIUM 3.8 mmol/L (3.5-5.1)
[2016-09-11 07:21] LABS: CALCIUM 8.1 mg/dl (8.4-10.2); CREATININE 3.14 mg/dl (0.61-1.24)
[2016-09-11 07:31] LABS: CONDITION 1; LH ANALYZER COMMENTS 1
[2016-09-11 07:34] LABS: PLATELET COUNT 26 10^3/UL (140-440)
[2016-09-11] MEDS: SEVELAMER CARBONATE 2.4 GM PKT GTB SCH ×3 (08:35→17:56)
[2016-09-11] MEDS: COLLAGENASE 30 GM TUBE TOP SCH (09:30)
[2016-09-11] MEDS: CALCITRIOL 0.25 MCG CAP GTB SCH (09:30)
[2016-09-11 09:33] LABS: PLATELET ESTIMATE PLT APPEAR DECREASED
[2016-09-11] MEDS: CEFEPIME 1GM/50 ML (PMX) 50 ML IVPB SCH (09:59)
[2016-09-11] MEDS: LEVETIRACETAM (100 MG/ML) 5ML CUP GTB SCH ×2 (10:00→21:49)
[2016-09-11] MEDS: SUCRALFATE (100 MG/ML) 10ML CUP GTB SCH ×2 (10:00→21:49)
[2016-09-11] MEDS: ALLOPURINOL 100 MG TAB GTB SCH (10:00)
[2016-09-11] MEDS: CHLORHEXIDINE GLUCONATE 15 ML UD CUP MM SCH ×2 (10:00→21:49)
[2016-09-11] MEDS: CITRIC ACID/NA CITRATE 30 ML CUP PO SCH ×3 (10:00→21:49)
[2016-09-11] MEDS: ZINC SULFATE 220 MG CAP GTB SCH (10:01)
[2016-09-11] MEDS: ASCORBIC ACID 500 MG TAB GTB SCH ×2 (10:01→21:50)
[2016-09-11] MEDS: FAMOTIDINE 20 MG TAB GTB SCH (10:01)
--- NOTE | 2016-09-11 10:02 | CONS ---
Date/Time of Note Date/Time of Note DATE: 09/11/16 TIME: 09:58 Assessment/Plan Assessment/Plan Additional Assessment/Plan Current ventilator settings are assist control of 14, tidal volume 500, PEEP of 5, 30% FiO2. Assessment and recommendations; 1. Chronic respiratory failure due to anoxic encephalopathy patient remains ventilator dependent. 2. Sepsis and CHF clinically improved. 3. Stable seizure disorder. 4. Patient admitted with severe anemia status post blood transfusion with stable hematocrit. Without any overt bleeding. 5. Pancytopenia. With severe thrombocytopenia. No evidence of any bleeding. 6. Compensated CHF. 7. Stable seizure disorder. Continue current treatment for now patient can be transferred back to the correction. Prognosis remains poor. Consultation Date/Type/Reason Admit Date/Time Sep 06, 2016 at 22:27 Initial Consult Date 09/07/16 Type of Consultation: Pulmonary/critical care Referring Provider: FREDDY COELLO MD 24 HR Interval Summary Free Text/Dictation Patient condition remains stable. Still requiring full ventilator support on account of severe anoxic enthesopathy. Patient has remained hemodynamically stable. Pressor support. No seizure activity noted. General examination; middle-aged man, on ventilator via tracheostomy currently in no distress. Also remains unresponsive. Exam/Review of Systems Vital Signs Vitals Vital Signs Date Time Temp Pulse Resp B/P Pulse Ox O2 Delivery O2 Flow Rate FiO2 09/11/16 06:00 84 14 92/65 99 Mechanical Ventilator 09/11/16 05:25 30 09/11/16 04:00 96.0 Intake and Output 09/10/16 09/10/16 09/11/16 15:00 23:00 07:00 Intake Total 560 ml 1245 ml 1080 ml Output Total 435 ml 175 ml Balance 560 ml 810 ml 905 ml Exam H EENT examination; supple neck, no JVD. No thyromegaly. Tracheostomy in place with clean insertion site. Patient does have multiple carious teeth. Bilateral cataracts are present. Pupils are midsize and reactive to light bilaterally. Chest examination; diminished breath sounds bilaterally. S1-S2 audible, no murmurs. Regular rhythm. Abdomen examination; soft, no organomegaly. G-tube in place. Extremity examination; patient has severe contractures involving all 4 extremities. DIRECTOR SUPPLIER QUALITY examination; patient remains unresponsive. Results Result Diagram: 09/11/16 0500 09/11/16 0500 Results 24 hrs Laboratory Tests Test 09/10/16 23:59 09/11/16 05:00 Anion Gap 15 17 H Blood Urea Nitrogen 164 H 165 H Calcium Level 8.3 L 8.1 L Carbon Dioxide Level 24 23 Chloride Level 105 105 Creatinine 3.11 H 3.14 H Glucose Level 118 122 Magnesium Level 2.2 Potassium Level 3.9 3.8 Sodium Level 140 141 Basophils # 0.0 Basophils % 0.1 Blood Morphology Comment Differential Comment AUTO w/SCAN Eosinophils # 0.1 Eosinophils % 2.4 Hematocrit 26.6 L Hemoglobin 9.1 L Lymphocytes # 0.5 L Lymphocytes % 8.3 L Mean Corpuscular Hemoglobin 30.8 Mean Corpuscular Hemoglobin Concent 34.1 Mean Corpuscular Volume 90.5 Mean Platelet Volume 9.8 Monocytes # 0.5 Monocytes % 8.4 Neutrophils # 4.5 Neutrophils % 80.8 H Nucleated Red Blood Cells # 0.0 Nucleated Red Blood Cells % 0.0 Platelet Count 26 *L Platelet Estimate PLT APPEAR DECREASED Red Blood Count 2.94 L Red Cell Distribution Width 15.1 H White Blood Count 5.6 # Medications Medications Current Medications Acetaminophen (Tylenol Liquid) 640 mg Q6H PRN GTB PAIN OR TEMP ABOVE 38C; Start 09/06/16 at 22:30 Allopurinol (Zyloprim) 200 mg DAILY GTB Last administered on 09/10/16 08:58; Admin Dose 200 MG; Start 09/07/16 at 09:00 Ascorbic Acid (Vitamin C) 500 mg BID GTB Last administered on 09/10/16 20:17; Admin Dose 500 MG; Start 09/07/16 at 09:00 Calcitriol (Rocaltrol) 0.25 mcg DAILY GTB Last administered on 09/10/16 08:58 ; Admin Dose 0.25 MCG; Start 09/07/16 at 09:00 Chlorhexidine Gluconate (Peridex) 15 ml BID MM Last administered on 09/10/16 20:16; Admin Dose 15 ML; Start 09/07/16 at 09:00 Famotidine (Pepcid) 40 mg DAILY GTB Last administered on 09/10/16 08:58; Admin Dose 40 MG; Start 09/07/16 at 09:00 Lansoprazole (Prevacid) 30 mg BID@18 GTB Last administered on 09/11/16 06: 08; Admin Dose 30 MG; Start 09/07/16 at 06:00 Levetiracetam (Keppra Liquid) 500 mg BID GTB Last administered on 09/10/16 20: 17; Admin Dose 500 MG; Start 09/07/16 at 09:00 Metoclopramide HCl (Reglan) 5 mg Q8H PRN GTB NAUSEA AND/OR VOMITING; Start 09/06 at 22:30 Sucralfate (Carafate Susp) 1 gm BID GTB Last administered on 09/10/16 20:17; Admin Dose 1 GM; Start 09/07/16 at 09:00 Zinc Sulfate (Zinc Sulfate) 220 mg DAILY GTB Last administered on 09/10/16 08: 58; Admin Dose 220 MG; Start 09/07/16 at 09:00 Ondansetron HCl (Zofran Inj) 4 mg Q6H PRN IV NAUSEA AND/OR VOMITING Last administered on 09/09/16 22:03; Admin Dose 4 MG; Start 09/06/16 at 22:30 Morphine Sulfate (morphine) 2 mg Q4H PRN IV PAIN LEVEL 7-10 Last administered on 09/10/16 14:36; Admin Dose 2 MG; Start 09/06/16 at 22:30 Collagenase 1 applic 1 applic DAILY TOP Last administered on 09/10/16 08:58; Admin Dose 1 APPLIC; Start 09/07/16 at 19:30; Stop 09/15/16 at 11:30 Norepinephrine 16 mg/Dextrose 500 ml @ 1.87 mls/hr TITRATE IV ; Start 09/08/16 at 12:00 Dextrose (D5W) 1,000 ml @ 70 mls/hr [id number] IV Last administered on 09/11/16 05:05; Admin Dose 70 MLS/HR; Start 09/09/16 at 10:30 Citric Acid/ Sodium Citrate 30 ml 30 ml TID PO Last administered on 09/10/16 20:16; Admin Dose 30 ML; Start 09/09/16 at 13:00 Cefepime HCl (Maxipime 1gm/50 ml (Pmx)) 50 ml @ 100 mls/hr DAILY IVPB Last administered on 09/10/16 13:15; Admin Dose 100 MLS/HR; Start 09/10/16 at 11:30 Metoclopramide HCl (Reglan) 5 mg Q6H PRN IV RESIDUALS > 100; Start 09/10/16 at 19:00 LIU BRIGGS Sep 11, 2016 10:02
--- NOTE | 2016-09-11 11:25 | PN ---
DATE: INFECTIOUS DISEASE PROGRESS NOTE SUBJECTIVE: No acute changes overnight per discussion with staff, patient is nonverbal, lying comfo rtably in bed. Afebrile, no pressors. WBC today 5.6, H and H 9.1 and 26.6, platelets 26, neutrophils 80.8. No bands. BUN 165, creatinine 3.14. MICROBIOLOGY: Sputum culture on admission grew Klebsiella and achromobacter species. Stool for C. diff negative. Urine culture negative. INDWELLINGS: Trach, PEG, Brar, left IJ triple-lumen catheter. ANTIMICROBIALS: The patient is on Cefepime. PHYSICAL EXAMINATION: GENERAL: This is a fragile, chronically ill-appearing, middle-aged white man who is nonverbal, nonc ommunicative, lying comfortably in bed. HEENT: Head atraumatic, normocephalic. Sclerae anicteric. Buccal mucosa dry. NECK: Supple. Tracheostomy present. CHEST: Rise symmetrical. Breath sounds diminished to bases. HEART: S1, S2. ABDOMEN: Soft. Bowel tones hypoactive. EXTREMITIES: Contractured with multiple decubiti. ASSESSMENT: 1. Resolving sepsis status post shock. 2. Multiple decubitus, possibly infected. 3. Chronic respiratory failure. 4. Anemia. 5. Seizure disorder. 6. Chronic kidney disease. 7. ALLERGY TO ZITHROMAX, ZOSYN AND ERYTHROMYCIN. PLAN: The patient remains stable. He is being followed by multiple consultants. We will continue him on current antimicrobials. Continue local wound care. Dictated By: ARUN DIANA RHEOSTAT ASSEMBLER for KAT VYAS/NIKOLAI Conf#: [id number] DID#: [id number]
--- NOTE | 2016-09-11 11:42 | CONS ---
Date/Time of Note Date/Time of Note DATE: 09/11/16 TIME: 11:38 Assessment/Plan Assessment/Plan Additional Assessment/Plan 1. Acute kidney injury on possible chronic kidney disease unknown stage secondary to severe prerenal azotemia causing ischemic acute tubular necrosis in the setting of severe anemia. 2. Severe anemia, rule out gastrointestinal bleeding.s/p PRBC , now HB 9.1 3. Chronic respiratory failure, status post tracheostomy, on vent. 4. Pancytopenia. 5. History of a seizure disorder. 6. Possible concern about septic shock. PLAN: s/p PRBC- now Hb 9.1 Us showed kidneys are small i nsize and increased echogenicity c/w chronic medical renal disease BUN/Cr still high with labile BP , urine output marginally low 640cc- if continue to be oliguric with high BUN/Cr in next two days then we will consider for intiiation of HD. continue IVF D5 W and water flush on Bicitra 30ml PO TID Blood transfusion plan as per GI and Primary care will follow up Consultation Date/Type/Reason Admit Date/Time Sep 06, 2016 at 22:27 Initial Consult Date 09/07/16 Type of Consultation: NEPHROLOGY Referring Provider: FREDDY COELLO MD 24 HR Interval Summary Free Text/Dictation pt BUN/Cr still high but K and HCO3 normal, still BP labile Exam/Review of Systems Vital Signs Vitals Vital Signs Date Time Temp Pulse Resp B/P Pulse Ox O2 Delivery O2 Flow Rate FiO2 09/11/16 11:31 76 14 95 30 09/11/16 06:00 92/65 Mechanical Ventilator 09/11/16 04:00 96.0 Intake and Output 09/10/16 09/10/16 09/11/16 15:00 23:00 07:00 Intake Total 560 ml 1245 ml 1080 ml Output Total 435 ml 175 ml Balance 560 ml 810 ml 905 ml Results Result Diagram: 09/11/16 0500 09/11/16 0500 Results 24 hrs Laboratory Tests Test 09/10/16 23:59 09/11/16 05:00 Anion Gap 15 17 H Blood Urea Nitrogen 164 H 165 H Calcium Level 8.3 L 8.1 L Carbon Dioxide Level 24 23 Chloride Level 105 105 Creatinine 3.11 H 3.14 H Glucose Level 118 122 Magnesium Level 2.2 Potassium Level 3.9 3.8 Sodium Level 140 141 Basophils # 0.0 Basophils % 0.1 Blood Morphology Comment Differential Comment AUTO w/SCAN Eosinophils # 0.1 Eosinophils % 2.4 Hematocrit 26.6 L Hemoglobin 9.1 L Lymphocytes # 0.5 L Lymphocytes % 8.3 L Mean Corpuscular Hemoglobin 30.8 Mean Corpuscular Hemoglobin Concent 34.1 Mean Corpuscular Volume 90.5 Mean Platelet Volume 9.8 Monocytes # 0.5 Monocytes % 8.4 Neutrophils # 4.5 Neutrophils % 80.8 H Nucleated Red Blood Cells # 0.0 Nucleated Red Blood Cells % 0.0 Platelet Count 26 *L Platelet Estimate PLT APPEAR DECREASED Red Blood Count 2.94 L Red Cell Distribution Width 15.1 H White Blood Count 5.6 # Medications Medications Current Medications Acetaminophen (Tylenol Liquid) 640 mg Q6H PRN GTB PAIN OR TEMP ABOVE 38C; Start 09/06/16 at 22:30 Allopurinol (Zyloprim) 200 mg DAILY GTB Last administered on 09/11/16 10:00; Admin Dose 200 MG; Start 09/07/16 at 09:00 Ascorbic Acid (Vitamin C) 500 mg BID GTB Last administered on 09/11/16 10:01; Admin Dose 500 MG; Start 09/07/16 at 09:00 Calcitriol (Rocaltrol) 0.25 mcg DAILY GTB Last administered on 09/10/16 08:58 ; Admin Dose 0.25 MCG; Start 09/07/16 at 09:00 Chlorhexidine Gluconate (Peridex) 15 ml BID MM Last administered on 09/11/16 10:00; Admin Dose 15 ML; Start 09/07/16 at 09:00 Famotidine (Pepcid) 40 mg DAILY GTB Last administered on 09/11/16 10:01; Admin Dose 40 MG; Start 09/07/16 at 09:00 Lansoprazole (Prevacid) 30 mg BID@18 GTB Last administered on 09/11/16 06: 08; Admin Dose 30 MG; Start 09/07/16 at 06:00 Levetiracetam (Keppra Liquid) 500 mg BID GTB Last administered on 09/11/16 10: 00; Admin Dose 500 MG; Start 09/07/16 at 09:00 Metoclopramide HCl (Reglan) 5 mg Q8H PRN GTB NAUSEA AND/OR VOMITING; Start 09/06 at 22:30 Sucralfate (Carafate Susp) 1 gm BID GTB Last administered on 09/11/16 10:00; Admin Dose 1 GM; Start 09/07/16 at 09:00 Zinc Sulfate (Zinc Sulfate) 220 mg DAILY GTB Last administered on 09/11/16 10: 01; Admin Dose 220 MG; Start 09/07/16 at 09:00 Ondansetron HCl (Zofran Inj) 4 mg Q6H PRN IV NAUSEA AND/OR VOMITING Last administered on 09/09/16 22:03; Admin Dose 4 MG; Start 09/06/16 at 22:30 Morphine Sulfate (morphine) 2 mg Q4H PRN IV PAIN LEVEL 7-10 Last administered on 09/10/16 14:36; Admin Dose 2 MG; Start 09/06/16 at 22:30 Collagenase 1 applic 1 applic DAILY TOP Last administered on 09/10/16 08:58; Admin Dose 1 APPLIC; Start 09/07/16 at 19:30; Stop 09/15/16 at 11:30 Norepinephrine 16 mg/Dextrose 500 ml @ 1.87 mls/hr TITRATE IV ; Start 09/08/16 at 12:00 Dextrose (D5W) 1,000 ml @ 70 mls/hr [id number] IV Last administered on 09/11/16 05:05; Admin Dose 70 MLS/HR; Start 09/09/16 at 10:30 Citric Acid/ Sodium Citrate 30 ml 30 ml TID PO Last administered on 09/11/16 10:00; Admin Dose 30 ML; Start 09/09/16 at 13:00 Cefepime HCl (Maxipime 1gm/50 ml (Pmx)) 50 ml @ 100 mls/hr DAILY IVPB Last administered on 09/11/16 09:59; Admin Dose 100 MLS/HR; Start 09/10/16 at 11:30 Metoclopramide HCl (Reglan) 5 mg Q6H PRN IV RESIDUALS > 100; Start 09/10/16 at 19:00 KENIA TURCIOS MD Sep 11, 2016 11:42
--- NOTE | 2016-09-11 13:15 | PN ---
DATE: 09/11/2016 PULMONARY FOLLOWUP NOTE SUBJECTIVE: The patient is in ICU, on ventilator support through tracheostomy. His mental status i s poor. He is mostly unresponsive, intermittently opens his eyes, but he does not follow. OBJECTIVE: VITAL SIGNS: Most recently show blood pressure 92/65, pulse rate of 76, respirations 14, pulse oxim etry 95% saturation. His respiratory rate is 14, pulse rate is 76, and temperature is 96%. NECK: Tracheal secretions are clear. No bleeding is seen. HEART: Regular sinus rhythm with premature atrial contractions. CHEST: Breath sounds are heard bilaterally, somewhat diminished in both the lower lung [place] with a few intermittent rales and rhonchi. ABDOMEN: Soft. He is tolerating gastrostomy tube feedings. EXTREMITIES: Show no edema, severely spastic in all the extremities. LABORATORY TESTS: Show WBC 5600, hemoglobin 9.1, hematocrit 26.6, platelets decreased to 126,000. The chemistry panel from today shows sodium 141, potassium 3.8, BUN 165, creatinine 3.14, glucose 12 2. Both BUN and creatinine are almost the same as yesterday. IMPRESSION: 1. Sepsis. 2. Chronic respiratory failure, ventilator dependent. 3. Acute renal failure. 4. Questionable pneumonia. 5. History of seizure disorder. 6. Chronic encephalopathy. 7. Pancytopenia. RECOMMENDATIONS: 1. Continue long-term ventilator support. 2. Continue antibiotics as per the infectious disease financial analysis consultant. 3. Continue IV hydration. 4. Continue supportive therapy. Dictated By: VEENA STREETER MD, SR/NIKOLAI Conf#: [id number] DID#: [id number]
--- NOTE | 2016-09-11 16:10 | PN ---
Date/Time of Note Date/Time of Note DATE: 09/11/16 TIME: 16:07 Assessment/Plan VTE Prophylaxis VTE Prophylaxis Intervention: SCD's Lines/Catheters [facility] Urinary Cath still in place: Yes Reason Cath still needed: urinary retention Assessment/Plan Chief Complaint/Hosp Course ASSESSMENT AND PLAN: 1. Severe anemia 2 GI bleed. Continue to monitor hemoglobin and hematocrit. Dr. Singh is following in gastroenterology consultation. 2. Hypovolemic shock, resolving. continue IV fluids. 3. Acute kidney failure secondary to #1 and #2. Continue to monitor BUN and creatinine. Dr. Mk Purdy is following in nephrology consultation. 4. Pancytopenia. 5. Ventilator-dependent respiratory failure. 6. Possible healthcare-acquired pneumonia. Dr. Aragon is following in pulmonology consultation. Continue ventilator support, bronchodilators. The patient will continue broad spectrum antibiotics for possible pneumonia. 7. Dysphagia with PEG. 8. History of seizure disorder. Continue patient on Keppra. 9. Diastolic dysfunction congestive heart failure with preserved ejection fraction of 60%. 10. Possible sepsis. Dr. Guy is following patient in infectious disease consultation. 11. Status post cerebrovascular accident, status post craniotomy. 12. Mental retardation. 13. DNR status. Continue Protonix for peptic ulcer disease prophylaxis. Further recommendations based on clinical course. Plan of care discussed with Dr. Mcelroy. Problems: Subjective 24 Hr Interval Summary Free Text/Dictation Patient weaned off pressors, BP is still on the low side, continues on vent support, tolerates G-tube feeding well, afebrile. Exam/Review of Systems Vital Signs Vitals Vital Signs Date Time Temp Pulse Resp B/P Pulse Ox O2 Delivery O2 Flow Rate FiO2 09/11/16 14:55 72 14 100 30 09/11/16 06:00 92/65 Mechanical Ventilator 09/11/16 04:00 96.0 Intake and Output 09/10/16 09/10/16 09/11/16 15:00 23:00 07:00 Intake Total 560 ml 1245 ml 1080 ml Output Total 435 ml 175 ml Balance 560 ml 810 ml 905 ml Exam GENERAL: Well-developed, frail, elderly male, on vent support via tracheostomy HEENT: Head is atraumatic. Pupils are equal and reactive to light and accommodation. Oral mucosa is dry. NECK: Supple. There is a tracheostomy at the base of the neck. CHEST: Lungs are diminished bilaterally. CARDIOVASCULAR: Normal S1, S2. No murmurs, gallops, clicks, rubs noted. ABDOMEN: Abdomen is round, soft, nondistended, nontender. Bowel sounds present. The patient has a G-tube. SKIN: No petechiae present. Patient has multiple decubitus ulcers. Please see wound care notes. EXTREMITIES: Contractures with muscle atrophy. NEUROLOGIC: The patient is awake, alert, opens eyes to commands, nonverbal, does not follow any commands. Results Result Diagram: 09/11/16 0500 09/11/16 0500 Results 24 hrs Laboratory Tests Test 09/10/16 23:59 09/11/16 05:00 Anion Gap 15 17 H Blood Urea Nitrogen 164 H 165 H Calcium Level 8.3 L 8.1 L Carbon Dioxide Level 24 23 Chloride Level 105 105 Creatinine 3.11 H 3.14 H Glucose Level 118 122 Magnesium Level 2.2 Potassium Level 3.9 3.8 Sodium Level 140 141 Basophils # 0.0 Basophils % 0.1 Blood Morphology Comment Differential Comment AUTO w/SCAN Eosinophils # 0.1 Eosinophils % 2.4 Hematocrit 26.6 L Hemoglobin 9.1 L Lymphocytes # 0.5 L Lymphocytes % 8.3 L Mean Corpuscular Hemoglobin 30.8 Mean Corpuscular Hemoglobin Concent 34.1 Mean Corpuscular Volume 90.5 Mean Platelet Volume 9.8 Monocytes # 0.5 Monocytes % 8.4 Neutrophils # 4.5 Neutrophils % 80.8 H Nucleated Red Blood Cells # 0.0 Nucleated Red Blood Cells % 0.0 Platelet Count 26 *L Platelet Estimate PLT APPEAR DECREASED Red Blood Count 2.94 L Red Cell Distribution Width 15.1 H White Blood Count 5.6 # Medications Medications Current Medications Acetaminophen (Tylenol Liquid) 640 mg Q6H PRN GTB PAIN OR TEMP ABOVE 38C; Start 09/06/16 at 22:30 Allopurinol (Zyloprim) 200 mg DAILY GTB Last administered on 09/11/16 10:00; Admin Dose 200 MG; Start 09/07/16 at 09:00 Ascorbic Acid (Vitamin C) 500 mg BID GTB Last administered on 09/11/16 10:01; Admin Dose 500 MG; Start 09/07/16 at 09:00 Calcitriol (Rocaltrol) 0.25 mcg DAILY GTB Last administered on 09/10/16 08:58 ; Admin Dose 0.25 MCG; Start 09/07/16 at 09:00 Chlorhexidine Gluconate (Peridex) 15 ml BID MM Last administered on 09/11/16 10:00; Admin Dose 15 ML; Start 09/07/16 at 09:00 Famotidine (Pepcid) 40 mg DAILY GTB Last administered on 09/11/16 10:01; Admin Dose 40 MG; Start 09/07/16 at 09:00 Lansoprazole (Prevacid) 30 mg BID@06,18 GTB Last administered on 09/11/16 06: 08; Admin Dose 30 MG; Start 09/07/16 at 06:00 Levetiracetam (Keppra Liquid) 500 mg BID GTB Last administered on 09/11/16 10: 00; Admin Dose 500 MG; Start 09/07/16 at 09:00 Metoclopramide HCl (Reglan) 5 mg Q8H PRN GTB NAUSEA AND/OR VOMITING; Start 09/06 at 22:30 Sucralfate (Carafate Susp) 1 gm BID GTB Last administered on 09/11/16 10:00; Admin Dose 1 GM; Start 09/07/16 at 09:00 Zinc Sulfate (Zinc Sulfate) 220 mg DAILY GTB Last administered on 09/11/16 10: 01; Admin Dose 220 MG; Start 09/07/16 at 09:00 Ondansetron HCl (Zofran Inj) 4 mg Q6H PRN IV NAUSEA AND/OR VOMITING Last administered on 09/09/16 22:03; Admin Dose 4 MG; Start 09/06/16 at 22:30 Morphine Sulfate (morphine) 2 mg Q4H PRN IV PAIN LEVEL 7-10 Last administered on 09/10/16 14:36; Admin Dose 2 MG; Start 09/06/16 at 22:30 Collagenase 1 applic 1 applic DAILY TOP Last administered on 09/10/16 08:58; Admin Dose 1 APPLIC; Start 09/07/16 at 19:30; Stop 09/15/16 at 11:30 Norepinephrine 16 mg/Dextrose 500 ml @ 1.87 mls/hr TITRATE IV ; Start 09/08/16 at 12:00 Dextrose (D5W) 1,000 ml @ 70 mls/hr [id number] IV Last administered on 09/11/16 05:05; Admin Dose 70 MLS/HR; Start 09/09/16 at 10:30 Citric Acid/ Sodium Citrate 30 ml 30 ml TID PO Last administered on 09/11/16 10:00; Admin Dose 30 ML; Start 09/09/16 at 13:00 Cefepime HCl (Maxipime 1gm/50 ml (Pmx)) 50 ml @ 100 mls/hr DAILY IVPB Last administered on 09/11/16 09:59; Admin Dose 100 MLS/HR; Start 09/10/16 at 11:30 Metoclopramide HCl (Reglan) 5 mg Q6H PRN IV RESIDUALS > 100; Start 09/10/16 at 19:00 QUIN ORTIZ Sep 11, 2016 16:10
[2016-09-12] VITALS (21 sets, daily range): BP systolic 91–123; BP diastolic 61–83; PULSE 72–100; RESP 14–16
[2016-09-12 04:51] LABS: AADO2 Arterial 156.8 mmHg (7.0-24.0); Allen Test ACCEPTAB; Arterial Base Excess -2.1 mmol/L (-3.0-3); Arterial COHb 0.2 % (0.0-3.0); Arterial Fraction of Oxyhgb 95.1 % (93.0-99.0); Arterial HCO3 22.8 mmol/L (22.0-26.0); Arterial MetHb 0.3 % (0.0-1.5); Arterial Total Hemglobin 10.5 g/dl (12.0-18.0); MODE VENT - AC
[2016-09-12] MEDS: LANSOPRAZOLE 30 MG CAP GTB SCH ×2 (05:16→18:00)
[2016-09-12 07:02] LABS: INR 1.25; PROTIME 15.8 Sec (12.2-14.2); PT RATIO 1.2
[2016-09-12 07:03] LABS: PARTIAL THROMBOPLASTIN TIME 42.6 Sec (25.0-35.0)
[2016-09-12 07:08] LABS: BASOPHILS % 0.2 % (0.0-2.0); EOSINOPHILS # 0.2 10^3/ul (0.0-0.5); EOSINOPHILS % 3.8 % (0.0-7.0); HEMATOCRIT 24.9 % (42.0-52.0); HEMOGLOBIN 8.5 g/dl (14.0-18.0); LYMPHOCYTES # 0.4 10^3/ul (0.8-2.9); LYMPHOCYTES % 10.5 % (15.0-51.0); MEAN CORPUSCULAR HEMOGLOBIN 30.8 pg (29.0-33.0); MEAN CORPUSCULAR HGB CONC 34.3 g/dl (32.0-37.0); MEAN CORPUSCULAR VOLUME 89.9 fl (82.0-101.0); MEAN PLATELET VOLUME 9.2 fl (7.4-10.4); MONOCYTE # 0.4 10^3/ul (0.3-0.9); MONOCYTES % 10.9 % (0.0-11.0); NEUTROPHIL # 3.1 10^3/ul (1.6-7.5); NEUTROPHILS % 74.6 % (39.0-77.0); RED BLOOD COUNT 2.77 10^6/ul (4.70-6.10); RED CELL DISTRIBUTION WIDTH 14.6 % (11.5-14.5); UNCORRECTED WBC 4.1 10^3/ul (4.8-10.8); WHITE BLOOD COUNT 4.1 10^3/ul (4.8-10.8)
[2016-09-12 07:09] LABS: ALBUMIN 1.7 g/dl (3.3-4.9)
[2016-09-12 07:10] LABS: POTASSIUM 3.9 mmol/L (3.5-5.1)
[2016-09-12 07:12] LABS: ALBUMIN/GLOBULIN RATIO 0.45; CREATININE 3.08 mg/dl (0.61-1.24); TOTAL PROTEIN 5.4 g/dl (6.1-8.1)
[2016-09-12 07:13] LABS: CALCIUM 8.1 mg/dl (8.4-10.2)
[2016-09-12 07:25] LABS: CONDITION 1; LH ANALYZER COMMENTS 1; PLATELET COUNT 29 10^3/UL (140-440)
[2016-09-12] MEDS: CHLORHEXIDINE GLUCONATE 15 ML UD CUP MM SCH ×2 (08:59→21:15)
[2016-09-12] MEDS: CITRIC ACID/NA CITRATE 30 ML CUP PO SCH ×3 (08:59→21:15)
[2016-09-12] MEDS: SUCRALFATE (100 MG/ML) 10ML CUP GTB SCH ×2 (08:59→21:15)
[2016-09-12] MEDS: LEVETIRACETAM (100 MG/ML) 5ML CUP GTB SCH ×2 (08:59→21:15)
[2016-09-12] MEDS: ALLOPURINOL 100 MG TAB GTB SCH (09:00)
[2016-09-12] MEDS: FAMOTIDINE 20 MG TAB GTB SCH (09:00)
[2016-09-12] MEDS: ASCORBIC ACID 500 MG TAB GTB SCH ×2 (09:00→21:14)
[2016-09-12] MEDS: SEVELAMER CARBONATE 2.4 GM PKT GTB SCH ×3 (09:00→18:00)
[2016-09-12] MEDS: ZINC SULFATE 220 MG CAP GTB SCH (09:00)
[2016-09-12] MEDS: COLLAGENASE 30 GM TUBE TOP SCH (09:02)
[2016-09-12] MEDS: CALCITRIOL 0.25 MCG CAP GTB SCH (09:10)
--- NOTE | 2016-09-12 10:42 | CONS ---
Date/Time of Note Date/Time of Note DATE: 09/12/16 TIME: 10:38 Assessment/Plan Assessment/Plan Additional Assessment/Plan 1. Acute kidney injury on possible chronic kidney disease unknown stage secondary to severe prerenal azotemia causing ischemic acute tubular necrosis in the setting of severe anemia. 2. Severe anemia, rule out gastrointestinal bleeding.s/p PRBC , now HB 9.1 3. Chronic respiratory failure, status post tracheostomy, on vent. 4. Pancytopenia. 5. History of a seizure disorder. 6. Possible concern about septic shock. PLAN: s/p PRBC- now Hb 8.5 Us showed kidneys are small i nsize and increased echogenicity c/w chronic medical renal disease BUN/Cr still high with labile BP , urine output marginally low 640cc- if continue to be oliguric with high BUN/Cr by tomorrow then we will consider for intiiation of HD. continue IVF D5 W , change water flush to 100 cc Every6 hour on Bicitra 30ml PO TID Blood transfusion plan as per GI and Primary care will follow up Consultation Date/Type/Reason Admit Date/Time Sep 06, 2016 at 22:27 Initial Consult Date 09/07/16 Type of Consultation: NEPHROLOGY Referring Provider: FREDDY COELLO MD 24 HR Interval Summary Free Text/Dictation pt transferred to telemetry floor , Cr 3.04, BUN 165, K and HCO3 normal Exam/Review of Systems Vital Signs Vitals Vital Signs Date Time Temp Pulse Resp B/P Pulse Ox O2 Delivery O2 Flow Rate FiO2 09/12/16 08:33 78 09/12/16 07:27 97.6 14 105/67 100 09/12/16 05:48 30 09/11/16 20:00 Mechanical Ventilator Intake and Output 09/11/16 09/11/16 09/12/16 15:00 23:00 07:00 Intake Total 740 ml Output Total 300 ml Balance 440 ml Results Result Diagram: 09/12/16 0610 09/12/16 0610 Results 24 hrs Laboratory Tests Test 09/12/16 05:00 09/12/16 06:10 Arterial Blood HCO3 22.8 Arterial Blood Base Excess -2.1 Arterial Blood Oxygen Saturation 95.6 [place] Test ACCEPTAB Arterial Blood Gas Puncture Site Right Radial Arterial Blood Carboxyhemoglobin 0.2 Arterial Blood Date Drawn 09/12/2016 4:40:03 AM Arterial Blood Methemoglobin 0.3 Arterial Blood pCO2 (Temp correct) 39.4 Arterial Blood pH (Temp corrected) 7.380 Arterial Blood pO2 (Temp corrected) 83.1 Blood Gas A-a O2 Differential 156.8 H Blood Gas Actual Respiration Rate 14 Blood Gas Inspiratory Pressure 33.0 Blood Gas Low PEEP Setting 5.0 Blood Gas Modality VENT - AC Blood Gas Notified Time 09/12/2016 4:50:53 AM Blood Gas Notified Whom KM Blood Gas Respiration Rate 14.0 Blood Gas Specimen Source Blood arterial Blood Gas Temperature 37.0 Blood Gas Tidal Volume 550.0 FiO2 40.0 Oxyhemoglobin Percent 95.1 Total Hemoglobin 10.5 L Activated Partial Thromboplast Time 42.6 H Alanine Aminotransferase (ALT/SGPT) 18 Albumin 1.7 L Albumin/Globulin Ratio 0.45 Alkaline Phosphatase 155 H Anion Gap 14 Aspartate Amino Transf (AST/SGOT) 10 L Basophils # 0.0 Basophils % 0.2 Blood Morphology Comment Blood Urea Nitrogen 165 H Calcium Level 8.1 L Carbon Dioxide Level 24 Chloride Level 103 Creatinine 3.08 H Direct Bilirubin 0.00 Eosinophils # 0.2 Eosinophils % 3.8 Globulin 3.70 H Glucose Level 88 Hematocrit 24.9 L Hemoglobin 8.5 L INR International Normalized Ratio 1.25 Indirect Bilirubin 0.0 Lymphocytes # 0.4 L Lymphocytes % 10.5 L Mean Corpuscular Hemoglobin 30.8 Mean Corpuscular Hemoglobin Concent 34.3 Mean Corpuscular Volume 89.9 Mean Platelet Volume 9.2 Monocytes # 0.4 Monocytes % 10.9 Neutrophils # 3.1 Neutrophils % 74.6 Nucleated Red Blood Cells # 0.0 Nucleated Red Blood Cells % 0.0 Platelet Count 29 *L Potassium Level 3.9 Prothrombin Time 15.8 H Prothrombin Time Ratio 1.2 Red Blood Count 2.77 L Red Cell Distribution Width 14.6 H Sodium Level 137 Total Bilirubin 0.0 L Total Protein 5.4 L White Blood Count 4.1 #L Medications Medications Current Medications Acetaminophen (Tylenol Liquid) 640 mg Q6H PRN GTB PAIN OR TEMP ABOVE 38C; Start 09/06/16 at 22:30 Allopurinol (Zyloprim) 200 mg DAILY GTB Last administered on 09/12/16t 09:00; Admin Dose 200 MG; Start 09/07/16 at 09:00 Ascorbic Acid (Vitamin C) 500 mg BID GTB Last administered on 09/12/16 09:00; Admin Dose 500 MG; Start 09/07/16 at 09:00 Calcitriol (Rocaltrol) 0.25 mcg DAILY GTB Last administered on 09/12/16 09:10 ; Admin Dose 0.25 MCG; Start 09/07/16 at 09:00 Chlorhexidine Gluconate (Peridex) 15 ml BID MM Last administered on 09/12/16 08:59; Admin Dose 15 ML; Start 09/07/16 at 09:00 Famotidine (Pepcid) 40 mg DAILY GTB Last administered on 09/12/16 09:00; Admin Dose 40 MG; Start 09/07/16 at 09:00 Lansoprazole (Prevacid) 30 mg BID@18 GTB Last administered on 09/12/16 05: 16; Admin Dose 30 MG; Start 09/07/16 at 06:00 Levetiracetam (Keppra Liquid) 500 mg BID GTB Last administered on 09/12/16 08: 59; Admin Dose 500 MG; Start 09/07/16 at 09:00 Metoclopramide HCl (Reglan) 5 mg Q8H PRN GTB NAUSEA AND/OR VOMITING; Start 09/06 at 22:30 Sucralfate (Carafate Susp) 1 gm BID GTB Last administered on 09/12/16 08:59; Admin Dose 1 GM; Start 09/07/16 at 09:00 Zinc Sulfate (Zinc Sulfate) 220 mg DAILY GTB Last administered on 09/12/16 09: 00; Admin Dose 220 MG; Start 09/07/16 at 09:00 Ondansetron HCl (Zofran Inj) 4 mg Q6H PRN IV NAUSEA AND/OR VOMITING Last administered on 09/09/16 22:03; Admin Dose 4 MG; Start 09/06/16 at 22:30 Morphine Sulfate (morphine) 2 mg Q4H PRN IV PAIN LEVEL 7-10 Last administered on 09/10/16 14:36; Admin Dose 2 MG; Start 09/06/16 at 22:30 Collagenase 1 applic 1 applic DAILY TOP Last administered on 09/12/16 09:02; Admin Dose 1 APPLIC; Start 09/07/16 at 19:30; Stop 09/15/16 at 11:30 Norepinephrine 16 mg/Dextrose 500 ml @ 1.87 mls/hr TITRATE IV ; Start 09/08/16 at 12:00 Dextrose (D5W) 1,000 ml @ 70 mls/hr [id number] IV Last administered on 09/11/16 21:49; Admin Dose 70 MLS/HR; Start 09/09/16 at 10:30 Citric Acid/ Sodium Citrate 30 ml 30 ml TID PO Last administered on 09/12/16 08:59; Admin Dose 30 ML; Start 09/09/16 at 13:00 Cefepime HCl (Maxipime 1gm/50 ml (Pmx)) 50 ml @ 100 mls/hr DAILY IVPB Last administered on 09/11/16 09:59; Admin Dose 100 MLS/HR; Start 09/10/16 at 11:30 Metoclopramide HCl (Reglan) 5 mg Q6H PRN IV RESIDUALS > 100; Start 09/10/16 at 19:00 KENIA TURCIOS MD Sep 12, 2016 10:41
[2016-09-12] MEDS: CEFEPIME 1GM/50 ML (PMX) 50 ML IVPB SCH (11:28)
--- NOTE | 2016-09-12 13:27 | PN ---
Date/Time of Note Date/Time of Note DATE: 09/12/16 TIME: 13:24 Assessment/Plan VTE Prophylaxis VTE Prophylaxis Intervention: SCD's Lines/Catheters IV Catheter Type (from [facility]): Saline Lock Urinary Cath still in place: Yes Reason Cath still needed: urinary retention Assessment/Plan Chief Complaint/Hosp Course ASSESSMENT AND PLAN: 1. Severe anemia 2 GI bleed. Continue to monitor hemoglobin and hematocrit. Dr. Singh is following in gastroenterology consultation. 2. Hypovolemic shock, resolving. continue IV fluids. 3. Acute kidney failure secondary to #1 and #2. Continue to monitor BUN and creatinine. Dr. Mk Purdy is following in nephrology consultation. 4. Pancytopenia. 5. Ventilator-dependent respiratory failure. 6. Possible healthcare-acquired pneumonia. Dr. Aragon is following in pulmonology consultation. Continue ventilator support, bronchodilators. The patient will continue broad spectrum antibiotics for possible pneumonia. 7. Dysphagia with PEG. 8. History of seizure disorder. Continue patient on Keppra. 9. Diastolic dysfunction congestive heart failure with preserved ejection fraction of 60%. 10. Possible sepsis. Dr. Guy is following patient in infectious disease consultation. 11. Status post cerebrovascular accident, status post craniotomy. 12. Mental retardation. 13. DNR status. Continue Protonix for peptic ulcer disease prophylaxis. Further recommendations based on clinical course. Plan of care discussed with Dr. Mcelroy. Problems: Subjective 24 Hr Interval Summary Free Text/Dictation Patient remains afebrile, tolerates G-tube feeding well, continued on ventilator support via tracheostomy. Exam/Review of Systems Vital Signs Vitals Vital Signs Date Time Temp Pulse Resp B/P Pulse Ox O2 Delivery O2 Flow Rate FiO2 09/12/16 12:19 82 09/12/16 11:50 14 98 30 09/12/16 11:35 97.9 114/74 09/11/16 20:00 Mechanical Ventilator Intake and Output 09/11/16 09/11/16 09/12/16 15:00 23:00 07:00 Intake Total 740 ml Output Total 300 ml Balance 440 ml Exam GENERAL: Well-developed, frail, elderly male, on vent support via tracheostomy HEENT: Head is atraumatic. Pupils are equal and reactive to light and accommodation. Oral mucosa is dry. NECK: Supple. There is a tracheostomy at the base of the neck. CHEST: Lungs are diminished bilaterally. CARDIOVASCULAR: Normal S1, S2. No murmurs, gallops, clicks, rubs noted. ABDOMEN: Abdomen is round, soft, nondistended, nontender. Bowel sounds present. The patient has a G-tube. SKIN: No petechiae present. Patient has multiple decubitus ulcers. Please see wound care notes. EXTREMITIES: Contractures with muscle atrophy. NEUROLOGIC: The patient is awake, alert, opens eyes to commands, nonverbal, does not follow any commands. Results Result Diagram: 09/12/16 0610 09/12/16 0610 Results 24 hrs Laboratory Tests Test 09/12/16 05:00 09/12/16 06:10 Arterial Blood HCO3 22.8 Arterial Blood Base Excess -2.1 Arterial Blood Oxygen Saturation 95.6 Tremaine Test ACCEPTAB Arterial Blood Gas Puncture Site Right Radial Arterial Blood Carboxyhemoglobin 0.2 Arterial Blood Date Drawn 09/12/2016 4:40:03 AM Arterial Blood Methemoglobin 0.3 Arterial Blood pCO2 (Temp correct) 39.4 Arterial Blood pH (Temp corrected) 7.380 Arterial Blood pO2 (Temp corrected) 83.1 Blood Gas A-a O2 Differential 156.8 H Blood Gas Actual Respiration Rate 14 Blood Gas Inspiratory Pressure 33.0 Blood Gas Low PEEP Setting 5.0 Blood Gas Modality VENT - AC Blood Gas Notified Time 09/12/2016 4:50:53 AM Blood Gas Notified Whom KM Blood Gas Respiration Rate 14.0 Blood Gas Specimen Source Blood arterial Blood Gas Temperature 37.0 Blood Gas Tidal Volume 550.0 FiO2 40.0 Oxyhemoglobin Percent 95.1 Total Hemoglobin 10.5 L Activated Partial Thromboplast Time 42.6 H Alanine Aminotransferase (ALT/SGPT) 18 Albumin 1.7 L Albumin/Globulin Ratio 0.45 Alkaline Phosphatase 155 H Anion Gap 14 Aspartate Amino Transf (AST/SGOT) 10 L Basophils # 0.0 Basophils % 0.2 Blood Morphology Comment Blood Urea Nitrogen 165 H Calcium Level 8.1 L Carbon Dioxide Level 24 Chloride Level 103 Creatinine 3.08 H Direct Bilirubin 0.00 Eosinophils # 0.2 Eosinophils % 3.8 Globulin 3.70 H Glucose Level 88 Hematocrit 24.9 L Hemoglobin 8.5 L INR International Normalized Ratio 1.25 Indirect Bilirubin 0.0 Lymphocytes # 0.4 L Lymphocytes % 10.5 L Mean Corpuscular Hemoglobin 30.8 Mean Corpuscular Hemoglobin Concent 34.3 Mean Corpuscular Volume 89.9 Mean Platelet Volume 9.2 Monocytes # 0.4 Monocytes % 10.9 Neutrophils # 3.1 Neutrophils % 74.6 Nucleated Red Blood Cells # 0.0 Nucleated Red Blood Cells % 0.0 Platelet Count 29 *L Potassium Level 3.9 Prothrombin Time 15.8 H Prothrombin Time Ratio 1.2 Red Blood Count 2.77 L Red Cell Distribution Width 14.6 H Sodium Level 137 Total Bilirubin 0.0 L Total Protein 5.4 L White Blood Count 4.1 #L Medications Medications Current Medications Acetaminophen (Tylenol Liquid) 640 mg Q6H PRN GTB PAIN OR TEMP ABOVE 38C; Start 09/06/16 at 22:30 Allopurinol (Zyloprim) 200 mg DAILY GTB Last administered on 09/12/16 09:00; Admin Dose 200 MG; Start 09/07/16 at 09:00 Ascorbic Acid (Vitamin C) 500 mg BID GTB Last administered on 09/12/16 09:00; Admin Dose 500 MG; Start 09/07/16 at 09:00 Calcitriol (Rocaltrol) 0.25 mcg DAILY GTB Last administered on 09/12/16 09:10 ; Admin Dose 0.25 MCG; Start 09/07/16 at 09:00 Chlorhexidine Gluconate (Peridex) 15 ml BID MM Last administered on 09/12/16 08:59; Admin Dose 15 ML; Start 09/07/16 at 09:00 Famotidine (Pepcid) 40 mg DAILY GTB Last administered on 09/12/16 09:00; Admin Dose 40 MG; Start 09/07/16 at 09:00 Lansoprazole (Prevacid) 30 mg BID@,18 GTB Last administered on 09/12/16 05: 16; Admin Dose 30 MG; Start 09/07/16 at 06:00 Levetiracetam (Keppra Liquid) 500 mg BID GTB Last administered on 09/12/16 08: 59; Admin Dose 500 MG; Start 09/07/16 at 09:00 Metoclopramide HCl (Reglan) 5 mg Q8H PRN GTB NAUSEA AND/OR VOMITING; Start 09/06 at 22:30 Sucralfate (Carafate Susp) 1 gm BID GTB Last administered on 09/12/16 08:59; Admin Dose 1 GM; Start 09/07/16 at 09:00 Zinc Sulfate (Zinc Sulfate) 220 mg DAILY GTB Last administered on 09/12/16 09: 00; Admin Dose 220 MG; Start 09/07/16 at 09:00 Ondansetron HCl (Zofran Inj) 4 mg Q6H PRN IV NAUSEA AND/OR VOMITING Last administered on 09/09/16 22:03; Admin Dose 4 MG; Start 09/06/16 at 22:30 Morphine Sulfate (morphine) 2 mg Q4H PRN IV PAIN LEVEL 7-10 Last administered on 09/10/16 14:36; Admin Dose 2 MG; Start 09/06/16 at 22:30 Collagenase 1 applic 1 applic DAILY TOP Last administered on 09/12/16 09:02; Admin Dose 1 APPLIC; Start 09/07/16 at 19:30; Stop 09/15/16 at 11:30 Norepinephrine 16 mg/Dextrose 500 ml @ 1.87 mls/hr TITRATE IV ; Start 09/08/16 at 12:00 Dextrose (D5W) 1,000 ml @ 50 mls/hr Q20H IV Last administered on 09/11/16 21: 49; Admin Dose 70 MLS/HR; Start 09/09/16 at 10:30 Citric Acid/ Sodium Citrate 30 ml 30 ml TID PO Last administered on 09/12/16 12:27; Admin Dose 30 ML; Start 09/09/16 at 13:00 Cefepime HCl (Maxipime 1gm/50 ml (Pmx)) 50 ml @ 100 mls/hr DAILY IVPB Last administered on 09/12/16 11:28; Admin Dose 100 MLS/HR; Start 09/10/16 at 11:30 Metoclopramide HCl (Reglan) 5 mg Q6H PRN IV RESIDUALS > 100; Start 09/10/16 at 19:00 QUIN ORTIZ Sep 12, 2016 13:27
--- NOTE | 2016-09-12 17:09 | PN ---
DATE: 09/12/2016 PULMONARY FOLLOWUP NOTE SUBJECTIVE: The patient's general condition is same. He opens his eyes, looks around, but he ____. He is on continuous ventilator support through tracheostomy. VITAL SIGNS: Show temperature 98.5, blood pressure 123/83, pulse rate is 87, respirations 15, pulse oximetry showing 96% saturation. He has not had any fever spikes. NECK: Tracheal secretions are clear. No bleeding is seen. HEART: Regular rhythm. CHEST: Breath sounds are heard bilaterally, diminished in both the lower lung [place] with a few int ermittent rales and rhonchi. ABDOMEN: Soft. He is tolerating gastrostomy tube feedings. No vomiting has been reported. No dis tention is seen. EXTREMITIES: Show muscle wasting and spasticity. LABORATORY DATA: Lab test results from today shows WBC of 4100, hemoglobin 8.5, hematocrit 24.9, pl atelets are decreased to 29,000. The chemistry panel from today shows sodium 137, potassium 3.9, bic arbonate of 24, BUN is 165, creatinine is 3.08. BUN and creatinine are almost the same as before. Glucose is 88. Urine culture shows no growth. C. difficile is negative. IMPRESSION: 1. Sepsis. 2. Chronic respiratory failure, ventilator-dependent. 3. Acute renal failure. 4. Questionable pneumonia. 5. History of seizure disorder. 6. Chronic encephalopathy. 7. Pancytopenia. RECOMMENDATIONS: 1. Continue long-term ventilator support. 2. Continue antibiotics as per the infectious disease behavioral consultant. 3. Continue IV hydration. 4. Continue supportive therapy. Dictated By: VEENA STREETER MD SR/NIKOLAI Conf#: [id number] DID#: [id number]
--- NOTE | 2016-09-12 18:13 | PN ---
DATE: CHIEF COMPLAINT: The patient is unable to communicate, is nonverbal. PHYSICAL EXAMINATION: The patient is status post intubation. He is unable to communicate, is in re spiratory failure. I have been following the patient regarding the hemoglobin being low, currently is 8.5. There is no evidence of vomiting blood or passing blood from the rectum. The examination of the abdomen is unremarkable. CLINICAL IMPRESSION: The patient is having evidence of severe anemia, no evidence of active gastroi ntestinal bleeding. PLAN: Continue Protonix. The family apparently has decided not to pursue further aggressive GI wor kup. Continue present management. Dictated By: GEORGE SOTO/NIKOLAI Conf#: [id number] DID#: [id number]
--- NOTE | 2016-09-12 20:16 | CONS ---
Date/Time of Note Date/Time of Note DATE: 09/12/16 TIME: 20:14 Assessment/Plan Assessment/Plan Chief Complaint/Hosp Course SUBJECTIVE: No acute changes overnight per discussion with staff, patient is nonverbal, lying comfortably in bed. Afebrile MICROBIOLOGY: Sputum culture on admission grew Klebsiella and achromobacter species. Stool for C. diff negative. Urine culture negative. INDWELLINGS: Trach, PEG, Brar, left IJ triple-lumen catheter. ANTIMICROBIALS: The patient is on Cefepime. PHYSICAL EXAMINATION: GENERAL: This is a fragile, chronically ill-appearing, middle-aged white man who is nonverbal, noncommunicative, lying comfortably in bed. HEENT: Head atraumatic, normocephalic. Sclerae anicteric. Buccal mucosa dry. NECK: Supple. Tracheostomy present. CHEST: Rise symmetrical. Breath sounds diminished to bases. HEART: S1, S2. ABDOMEN: Soft. Bowel tones hypoactive. EXTREMITIES: Contractured with multiple decubiti. ASSESSMENT: 1. Resolving sepsis status post shock. 2. Multiple decubitus, possibly infected. 3. Chronic respiratory failure. 4. Anemia. 5. Seizure disorder. 6. Chronic kidney disease. 7. ALLERGY TO ZITHROMAX, ZOSYN AND ERYTHROMYCIN. PLAN: The patient remains stable. We will continue him on current antimicrobials. Continue local wound care. Vent per pulmonary DW staff Problems: Consultation Date/Type/Reason Admit Date/Time Sep 06, 2016 at 22:27 Initial Consult Date 09/07/16 Type of Consultation: ID Referring Provider: FREDDY COELLO MD Exam/Review of Systems Vital Signs Vitals Vital Signs Date Time Temp Pulse Resp B/P Pulse Ox O2 Delivery O2 Flow Rate FiO2 09/12/16 16:17 87 09/12/16 15:57 98.5 15 123/83 96 09/12/16 11:50 30 09/11/16 20:00 Mechanical Ventilator Intake and Output 09/11/16 09/11/16 09/12/16 15:00 23:00 07:00 Intake Total 740 ml Output Total 300 ml Balance 440 ml Results Result Diagram: 09/12/16 0610 09/12/16 0610 Results 24 hrs Laboratory Tests Test 09/12/16 05:00 09/12/16 06:10 Arterial Blood HCO3 22.8 Arterial Blood Base Excess -2.1 Arterial Blood Oxygen Saturation 95.6 Tremaine Test ACCEPTAB Arterial Blood Gas Puncture Site Right Radial Arterial Blood Carboxyhemoglobin 0.2 Arterial Blood Date Drawn 09/12/2016 4:40:03 AM Arterial Blood Methemoglobin 0.3 Arterial Blood pCO2 (Temp correct) 39.4 Arterial Blood pH (Temp corrected) 7.380 Arterial Blood pO2 (Temp corrected) 83.1 Blood Gas A-a O2 Differential 156.8 H Blood Gas Actual Respiration Rate 14 Blood Gas Inspiratory Pressure 33.0 Blood Gas Low PEEP Setting 5.0 Blood Gas Modality VENT - AC Blood Gas Notified Time 09/12/2016 4:50:53 AM Blood Gas Notified Whom KM Blood Gas Respiration Rate 14.0 Blood Gas Specimen Source Blood arterial Blood Gas Temperature 37.0 Blood Gas Tidal Volume 550.0 FiO2 40.0 Oxyhemoglobin Percent 95.1 Total Hemoglobin 10.5 L Activated Partial Thromboplast Time 42.6 H Alanine Aminotransferase (ALT/SGPT) 18 Albumin 1.7 L Albumin/Globulin Ratio 0.45 Alkaline Phosphatase 155 H Anion Gap 14 Aspartate Amino Transf (AST/SGOT) 10 L Basophils # 0.0 Basophils % 0.2 Blood Morphology Comment Blood Urea Nitrogen 165 H Calcium Level 8.1 L Carbon Dioxide Level 24 Chloride Level 103 Creatinine 3.08 H Direct Bilirubin 0.00 Eosinophils # 0.2 Eosinophils % 3.8 Globulin 3.70 H Glucose Level 88 Hematocrit 24.9 L Hemoglobin 8.5 L INR International Normalized Ratio 1.25 Indirect Bilirubin 0.0 Lymphocytes # 0.4 L Lymphocytes % 10.5 L Mean Corpuscular Hemoglobin 30.8 Mean Corpuscular Hemoglobin Concent 34.3 Mean Corpuscular Volume 89.9 Mean Platelet Volume 9.2 Monocytes # 0.4 Monocytes % 10.9 Neutrophils # 3.1 Neutrophils % 74.6 Nucleated Red Blood Cells # 0.0 Nucleated Red Blood Cells % 0.0 Platelet Count 29 *L Potassium Level 3.9 Prothrombin Time 15.8 H Prothrombin Time Ratio 1.2 Red Blood Count 2.77 L Red Cell Distribution Width 14.6 H Sodium Level 137 Total Bilirubin 0.0 L Total Protein 5.4 L White Blood Count 4.1 #L Medications Medications Current Medications Acetaminophen (Tylenol Liquid) 640 mg Q6H PRN GTB PAIN OR TEMP ABOVE 38C; Start 09/06/16 at 22:30 Allopurinol (Zyloprim) 200 mg DAILY GTB Last administered on 09/12/16 09:00; Admin Dose 200 MG; Start 09/07/16 at 09:00 Ascorbic Acid (Vitamin C) 500 mg BID GTB Last administered on 09/12/16 09:00; Admin Dose 500 MG; Start 09/07/16 at 09:00 Calcitriol (Rocaltrol) 0.25 mcg DAILY GTB Last administered on 09/12/16 09:10 ; Admin Dose 0.25 MCG; Start 09/07/16 at 09:00 Chlorhexidine Gluconate (Peridex) 15 ml BID MM Last administered on 09/12/16 08:59; Admin Dose 15 ML; Start 09/07/16 at 09:00 Famotidine (Pepcid) 40 mg DAILY GTB Last administered on 09/12/16 09:00; Admin Dose 40 MG; Start 09/07/16 at 09:00 Lansoprazole (Prevacid) 30 mg BID@18 GTB Last administered on 09/12/16 18: 00; Admin Dose 30 MG; Start 09/07/16 at 06:00 Levetiracetam (Keppra Liquid) 500 mg BID GTB Last administered on 09/12/16 08: 59; Admin Dose 500 MG; Start 09/07/16 at 09:00 Metoclopramide HCl (Reglan) 5 mg Q8H PRN GTB NAUSEA AND/OR VOMITING; Start 09/06 at 22:30 Sucralfate (Carafate Susp) 1 gm BID GTB Last administered on 09/12/16 08:59; Admin Dose 1 GM; Start 09/07/16 at 09:00 Zinc Sulfate (Zinc Sulfate) 220 mg DAILY GTB Last administered on 09/12/16 09: 00; Admin Dose 220 MG; Start 09/07/16 at 09:00 Ondansetron HCl (Zofran Inj) 4 mg Q6H PRN IV NAUSEA AND/OR VOMITING Last administered on 09/09/16 22:03; Admin Dose 4 MG; Start 09/06/16 at 22:30 Morphine Sulfate (morphine) 2 mg Q4H PRN IV PAIN LEVEL 7-10 Last administered on 09/10/16 14:36; Admin Dose 2 MG; Start 09/06/16 at 22:30 Collagenase 1 applic 1 applic DAILY TOP Last administered on 09/12/16 09:02; Admin Dose 1 APPLIC; Start 09/07/16 at 19:30; Stop 09/15/16 at 11:30 Norepinephrine 16 mg/Dextrose 500 ml @ 1.87 mls/hr TITRATE IV ; Start 09/08/16 at 12:00 Dextrose (D5W) 1,000 ml @ 50 mls/hr Q20H IV Last administered on 09/11/16 21: 49; Admin Dose 70 MLS/HR; Start 09/09/16 at 10:30 Citric Acid/ Sodium Citrate 30 ml 30 ml TID PO Last administered on 09/12/16 12:27; Admin Dose 30 ML; Start 09/09/16 at 13:00 Cefepime HCl (Maxipime 1gm/50 ml (Pmx)) 50 ml @ 100 mls/hr DAILY IVPB Last administered on 09/12/16 11:28; Admin Dose 100 MLS/HR; Start 09/10/16 at 11:30 Metoclopramide HCl (Reglan) 5 mg Q6H PRN IV RESIDUALS > 100; Start 09/10/16 at 19:00 ARUN DIANA NP Sep 12, 2016 20:16
[2016-09-13] VITALS (26 sets, daily range): BP systolic 107–176; BP diastolic 59–83; PULSE 85–107; RESP 14–28
[2016-09-13] MEDS: LANSOPRAZOLE 30 MG CAP GTB SCH ×2 (05:53→18:10)
[2016-09-13 06:39] LABS: ALBUMIN 1.9 g/dl (3.3-4.9)
[2016-09-13 06:40] LABS: POTASSIUM 3.8 mmol/L (3.5-5.1)
[2016-09-13 06:41] LABS: BASOPHILS % 0.2 % (0.0-2.0); EOSINOPHILS # 0.1 10^3/ul (0.0-0.5); EOSINOPHILS % 1.9 % (0.0-7.0); HEMATOCRIT 24.8 % (42.0-52.0); HEMOGLOBIN 8.6 g/dl (14.0-18.0); INR 1.23; LYMPHOCYTES # 0.5 10^3/ul (0.8-2.9); LYMPHOCYTES % 10.4 % (15.0-51.0); MEAN CORPUSCULAR HEMOGLOBIN 31.2 pg (29.0-33.0); MEAN CORPUSCULAR HGB CONC 34.7 g/dl (32.0-37.0); MEAN CORPUSCULAR VOLUME 89.9 fl (82.0-101.0); MEAN PLATELET VOLUME 9.7 fl (7.4-10.4); MONOCYTE # 0.4 10^3/ul (0.3-0.9); MONOCYTES % 8.8 % (0.0-11.0); NEUTROPHIL # 3.7 10^3/ul (1.6-7.5); NEUTROPHILS % 78.7 % (39.0-77.0); PROTIME 15.6 Sec (12.2-14.2); PT RATIO 1.2; RED BLOOD COUNT 2.76 10^6/ul (4.70-6.10); RED CELL DISTRIBUTION WIDTH 14.9 % (11.5-14.5); UNCORRECTED WBC 4.7 10^3/ul (4.8-10.8); WHITE BLOOD COUNT 4.7 10^3/ul (4.8-10.8)
[2016-09-13 06:42] LABS: ALBUMIN/GLOBULIN RATIO 0.48; CREATININE 2.92 mg/dl (0.61-1.24); PARTIAL THROMBOPLASTIN TIME 45.2 Sec (25.0-35.0); TOTAL PROTEIN 5.8 g/dl (6.1-8.1)
[2016-09-13 06:43] LABS: CALCIUM 8.2 mg/dl (8.4-10.2)
[2016-09-13 06:51] LABS: CONDITION 1; LH ANALYZER COMMENTS 1; PLATELET COUNT 30 10^3/UL (140-440)
[2016-09-13] MEDS: SEVELAMER CARBONATE 2.4 GM PKT GTB SCH ×3 (07:58→18:08)
--- NOTE | 2016-09-13 09:04 | CONS ---
Date/Time of Note Date/Time of Note DATE: 09/13/16 TIME: 08:59 Assessment/Plan Assessment/Plan Additional Assessment/Plan 1. Acute kidney injury on possible chronic kidney disease unknown stage secondary to severe prerenal azotemia causing ischemic acute tubular necrosis in the setting of severe anemia. 2. Severe anemia, rule out gastrointestinal bleeding.s/p PRBC , now HB 9.1 3. Chronic respiratory failure, status post tracheostomy, on vent. 4. Pancytopenia. 5. History of a seizure disorder. 6. Possible concern about septic shock. PLAN: s/p PRBC- now Hb 8.6 Us showed kidneys are small i nsize and increased echogenicity c/w chronic medical renal disease BUN/Cr still high with labile BP , urine output 1.1 liter in last 24 hr- if continue to be oliguric with high BUN/Cr by tomorrow then we will consider for intiiation of HD. continue IVF D5 W , change water flush to 100 cc Every6 hour on Bicitra 30ml PO TID Blood transfusion plan as per GI and Primary care will follow up discussed with patient Sister Francesco Khan SR on [phone]- discussed about options about having hemodialysis, she knows what is dialysis and Agreed to initiate hemodilaysi if renal function do not improve by tomorrow Consultation Date/Type/Reason Admit Date/Time Sep 06, 2016 at 22:27 Initial Consult Date 09/07/16 Type of Consultation: NEPHROLOGY Reason for Consultation Acute kidney injury, with Uremia,BUN >150 Referring Provider: FREDDY COELLO MD 24 HR Interval Summary Free Text/Dictation pt BUN/Cr slightly improved today but still very high, yesterday discussed with sister about need of HD Exam/Review of Systems Vital Signs Vitals Vital Signs Date Time Temp Pulse Resp B/P Pulse Ox O2 Delivery O2 Flow Rate FiO2 09/13/16 08:55 98.6 103 18 107/59 100 09/13/16 07:15 30 09/11/16 20:00 Mechanical Ventilator Intake and Output 09/12/16 09/12/16 09/13/16 15:00 23:00 07:00 Intake Total 180 ml 700 ml 600 ml Output Total 500 ml 650 ml Balance 180 ml 200 ml -50 ml Exam NECK: Tracheal secretions are clear. No bleeding is seen. HEART: Regular rhythm. CHEST: Breath sounds are heard bilaterally, diminished in both the lower lung [place] with a few intermittent rales and rhonchi. ABDOMEN: Soft. He is tolerating gastrostomy tube feedings. No vomiting has been reported. No distention is seen. EXTREMITIES: Show muscle wasting and spasticity. Results Result Diagram: 09/13/16 0524 09/13/16 0524 Results 24 hrs Laboratory Tests Test 09/13/16 05:24 Activated Partial Thromboplast Time 45.2 H Alanine Aminotransferase (ALT/SGPT) 15 Albumin 1.9 L Albumin/Globulin Ratio 0.48 Alkaline Phosphatase 204 H Anion Gap 15 Aspartate Amino Transf (AST/SGOT) 13 L Basophils # 0.0 Basophils % 0.2 Blood Morphology Comment Blood Urea Nitrogen 159 H Calcium Level 8.2 L Carbon Dioxide Level 23 Chloride Level 102 Creatinine 2.92 H Direct Bilirubin 0.00 Eosinophils # 0.1 Eosinophils % 1.9 Globulin 3.90 H Glucose Level 84 Hematocrit 24.8 L Hemoglobin 8.6 L INR International Normalized Ratio 1.23 Indirect Bilirubin 0.0 Lymphocytes # 0.5 L Lymphocytes % 10.4 L Mean Corpuscular Hemoglobin 31.2 Mean Corpuscular Hemoglobin Concent 34.7 Mean Corpuscular Volume 89.9 Mean Platelet Volume 9.7 Monocytes # 0.4 Monocytes % 8.8 Neutrophils # 3.7 Neutrophils % 78.7 H Nucleated Red Blood Cells # 0.0 Nucleated Red Blood Cells % 0.0 Platelet Count 30 L Potassium Level 3.8 Prothrombin Time 15.6 H Prothrombin Time Ratio 1.2 Red Blood Count 2.76 L Red Cell Distribution Width 14.9 H Sodium Level 136 Total Bilirubin 0.0 L Total Protein 5.8 L White Blood Count 4.7 L Medications Medications Current Medications Acetaminophen (Tylenol Liquid) 640 mg Q6H PRN GTB PAIN OR TEMP ABOVE 38C; Start 09/06/16 at 22:30 Allopurinol (Zyloprim) 200 mg DAILY GTB Last administered on 09/12/16 09:00; Admin Dose 200 MG; Start 09/07/16 at 09:00 Ascorbic Acid (Vitamin C) 500 mg BID GTB Last administered on 09/12/16 21:14; Admin Dose 500 MG; Start 09/07/16 at 09:00 Calcitriol (Rocaltrol) 0.25 mcg DAILY GTB Last administered on 09/12/16 09:10 ; Admin Dose 0.25 MCG; Start 09/07/16 at 09:00 Chlorhexidine Gluconate (Peridex) 15 ml BID MM Last administered on 09/12/16 21:15; Admin Dose 15 ML; Start 09/07/16 at 09:00 Famotidine (Pepcid) 40 mg DAILY GTB Last administered on 09/12/16 09:00; Admin Dose 40 MG; Start 09/07/16 at 09:00 Lansoprazole (Prevacid) 30 mg BID@18 GTB Last administered on 09/13/16 05: 53; Admin Dose 30 MG; Start 09/07/16 at 06:00 Levetiracetam (Keppra Liquid) 500 mg BID GTB Last administered on 09/12/16 21: 15; Admin Dose 500 MG; Start 09/07/16 at 09:00 Metoclopramide HCl (Reglan) 5 mg Q8H PRN GTB NAUSEA AND/OR VOMITING; Start 09/06 at 22:30 Sucralfate (Carafate Susp) 1 gm BID GTB Last administered on 09/12/16 21:15; Admin Dose 1 GM; Start 09/07/16 at 09:00 Zinc Sulfate (Zinc Sulfate) 220 mg DAILY GTB Last administered on 09/12/16 09: 00; Admin Dose 220 MG; Start 09/07/16 at 09:00 Ondansetron HCl (Zofran Inj) 4 mg Q6H PRN IV NAUSEA AND/OR VOMITING Last administered on 09/09/16 22:03; Admin Dose 4 MG; Start 09/06/16 at 22:30 Morphine Sulfate (morphine) 2 mg Q4H PRN IV PAIN LEVEL 7-10 Last administered on 09/10/16 14:36; Admin Dose 2 MG; Start 09/06/16 at 22:30 Collagenase (Santyl) 1 applic DAILY TOP Last administered on 09/12/16 09:02; Admin Dose 1 APPLIC; Start 09/07/16 at 19:30; Stop 09/15/16 at 11:30 Citric Acid/ Sodium Citrate 30 ml 30 ml TID PO Last administered on 09/12/16 21:15; Admin Dose 30 ML; Start 09/09/16 at 13:00 Cefepime HCl (Maxipime 1gm/50 ml (Pmx)) 50 ml @ 100 mls/hr DAILY IVPB Last administered on 09/12/16t 11:28; Admin Dose 100 MLS/HR; Start 09/10/16 at 11:30 Metoclopramide HCl (Reglan) 5 mg Q6H PRN IV RESIDUALS > 100; Start 09/10/16 at 19:00 Influenza Virus Vaccine (Fluzone) 0.5 ml ONCE ONCE IM* ; Start 09/14/16 at 09:00 ; Stop 09/14/16 at 09:01 KENIA TURCIOS MD Sep 13, 2016 09:04
[2016-09-13] MEDS: CITRIC ACID/NA CITRATE 30 ML CUP PO SCH ×3 (09:40→21:18)
[2016-09-13] MEDS: ALLOPURINOL 100 MG TAB GTB SCH (09:42)
[2016-09-13] MEDS: ZINC SULFATE 220 MG CAP GTB SCH (09:42)
[2016-09-13] MEDS: FAMOTIDINE 20 MG TAB GTB SCH (09:42)
[2016-09-13] MEDS: LEVETIRACETAM (100 MG/ML) 5ML CUP GTB SCH ×2 (09:42→21:18)
[2016-09-13] MEDS: CHLORHEXIDINE GLUCONATE 15 ML UD CUP MM SCH ×2 (09:42→21:18)
[2016-09-13] MEDS: SUCRALFATE (100 MG/ML) 10ML CUP GTB SCH ×2 (09:42→21:18)
[2016-09-13] MEDS: CALCITRIOL 0.25 MCG CAP GTB SCH (09:42)
[2016-09-13] MEDS: CEFEPIME 1GM/50 ML (PMX) 50 ML IVPB SCH (09:43)
[2016-09-13] MEDS: ASCORBIC ACID 500 MG TAB GTB SCH ×2 (09:43→21:19)
[2016-09-13] MEDS: COLLAGENASE 30 GM TUBE TOP SCH (09:43)
--- NOTE | 2016-09-13 10:12 | PN ---
Date/Time of Note Date/Time of Note DATE: 09/13/16 TIME: 10:08 Assessment/Plan VTE Prophylaxis VTE Prophylaxis Intervention: SCD's Lines/Catheters [facility]from [facility] Saline [facility] Urinary Cath still in place: Yes Reason Cath still needed: urinary retention Assessment/Plan Assessment/Plan DO NOT RESUSCITATE 1. Severe anemia 2 GI bleed- no obvious bleeding reported - per Dr. Singh in gastroenterology consultation. - Continue to monitor hemoglobin and hematocrit. 2. Hypovolemic shock, resolving. continue IV fluids. 3. Acute kidney failure secondary to #1 and #2. Continue to monitor BUN and creatinine. - per Dr. Mk Purdy in nephrology consultation. 4. Pancytopenia. 5. Ventilator-dependent respiratory failure. 6. Possible healthcare-acquired pneumonia. - per Dr. Aragon in pulmonology consultation. - Continue ventilator support, bronchodilators. The patient will continue broad spectrum antibiotics for possible pneumonia. 7. Possible sepsis. - per Dr. Guy in infectious disease consultation. 8. History of seizure disorder. - Continue patient on Keppra. - seizure precutions 9. Diastolic dysfunction congestive heart failure with preserved ejection fraction of 60%. 10. Dysphagia with PEG - aspiration precautions 11. Status post cerebrovascular accident, status post craniotomy. 12. Mental retardation. Continue Protonix for peptic ulcer disease prophylaxis. Total critical care tme spentis 35 mins Further recommendations based on clinical course. Plan of care discussed with Dr. Mcelroy. Subjective 24 Hr Interval Summary Free Text/Dictation nad, no obvious bleeding reported from any body orifices.afebrile, dw staff Subjective hx not possible: pt non-verbal Constitutional: requiring IVF, requiring O2 Exam/Review of Systems Vital Signs Vitals Vital Signs Date Time Temp Pulse Resp B/P Pulse Ox O2 Delivery O2 Flow Rate FiO2 09/13/16 09:03 105 09/13/16 09:00 28 99 30 09/13/16 08:55 98.6 107/59 09/11/16 20:00 Mechanical Ventilator Intake and Output 09/12/16 09/12/16 09/13/16 15:00 23:00 07:00 Intake Total 180 ml 700 ml 600 ml Output Total 500 ml 650 ml Balance 180 ml 200 ml -50 ml Exam Constitutional: frail, non-verbal Psych: nl mood/affect Eyes: PERRL, nl conjunctiva, nl sclera ENMT: nl external ears & nose Neck: non-tender Respiratory: diminished breath sounds, other Cardiovascular: nl pulses Gastrointestinal: non-tender, soft Musculoskeletal: muscle weakness Neurological: confused, lethargic Skin: other (multi decubs) Lymph: nontender Results Result Diagram: 09/13/1624 09/13/1624 Results 24 hrs Laboratory Tests Test 09/13/16 05:24 Activated Partial Thromboplast Time 45.2 H Alanine Aminotransferase (ALT/SGPT) 15 Albumin 1.9 L Albumin/Globulin Ratio 0.48 Alkaline Phosphatase 204 H Anion Gap 15 Aspartate Amino Transf (AST/SGOT) 13 L Basophils # 0.0 Basophils % 0.2 Blood Morphology Comment Blood Urea Nitrogen 159 H Calcium Level 8.2 L Carbon Dioxide Level 23 Chloride Level 102 Creatinine 2.92 H Direct Bilirubin 0.00 Eosinophils # 0.1 Eosinophils % 1.9 Globulin 3.90 H Glucose Level 84 Hematocrit 24.8 L Hemoglobin 8.6 L INR International Normalized Ratio 1.23 Indirect Bilirubin 0.0 Lymphocytes # 0.5 L Lymphocytes % 10.4 L Mean Corpuscular Hemoglobin 31.2 Mean Corpuscular Hemoglobin Concent 34.7 Mean Corpuscular Volume 89.9 Mean Platelet Volume 9.7 Monocytes # 0.4 Monocytes % 8.8 Neutrophils # 3.7 Neutrophils % 78.7 H Nucleated Red Blood Cells # 0.0 Nucleated Red Blood Cells % 0.0 Platelet Count 30 L Potassium Level 3.8 Prothrombin Time 15.6 H Prothrombin Time Ratio 1.2 Red Blood Count 2.76 L Red Cell Distribution Width 14.9 H Sodium Level 136 Total Bilirubin 0.0 L Total Protein 5.8 L White Blood Count 4.7 L Medications Medications Current Medications Acetaminophen (Tylenol Liquid) 640 mg Q6H PRN GTB PAIN OR TEMP ABOVE 38C; Start 09/06/16 at 22:30 Allopurinol (Zyloprim) 200 mg DAILY GTB Last administered on 09/13/16 09:42; Admin Dose 200 MG; Start 09/07/16 at 09:00 Ascorbic Acid (Vitamin C) 500 mg BID GTB Last administered on 09/13/16 09:43; Admin Dose 500 MG; Start 09/07/16 at 09:00 Calcitriol (Rocaltrol) 0.25 mcg DAILY GTB Last administered on 09/13/16 09:42 ; Admin Dose 0.25 MCG; Start 09/07/16 at 09:00 Chlorhexidine Gluconate (Peridex) 15 ml BID MM Last administered on 09/13/16 09:42; Admin Dose 15 ML; Start 09/07/16 at 09:00 Famotidine (Pepcid) 40 mg DAILY GTB Last administered on 09/13/16 09:42; Admin Dose 40 MG; Start 09/07/16 at 09:00 Lansoprazole (Prevacid) 30 mg BID@18 GTB Last administered on 09/13/16 05: 53; Admin Dose 30 MG; Start 09/07/16 at 06:00 Levetiracetam (Keppra Liquid) 500 mg BID GTB Last administered on 09/13/16 09: 42; Admin Dose 500 MG; Start 09/07/16 at 09:00 Metoclopramide HCl (Reglan) 5 mg Q8H PRN GTB NAUSEA AND/OR VOMITING; Start 09/06 at 22:30 Sucralfate (Carafate Susp) 1 gm BID GTB Last administered on 09/13/16 09:42; Admin Dose 1 GM; Start 09/07/16 at 09:00 Zinc Sulfate (Zinc Sulfate) 220 mg DAILY GTB Last administered on 09/13/16 09: 42; Admin Dose 220 MG; Start 09/07/16 at 09:00 Ondansetron HCl (Zofran Inj) 4 mg Q6H PRN IV NAUSEA AND/OR VOMITING Last administered on 09/09/16 22:03; Admin Dose 4 MG; Start 09/06/16 at 22:30 Morphine Sulfate (morphine) 2 mg Q4H PRN IV PAIN LEVEL 7-10 Last administered on 09/10/16 14:36; Admin Dose 2 MG; Start 09/06/16 at 22:30 Collagenase (Santyl) 1 applic DAILY TOP Last administered on 09/13/16 09:43; Admin Dose 1 APPLIC; Start 09/07/16 at 19:30; Stop 09/15/16 at 11:30 Citric Acid/ Sodium Citrate 30 ml 30 ml TID PO Last administered on 09/13/16 09:40; Admin Dose 30 ML; Start 2/12/17 at 13:00 Cefepime HCl (Maxipime 1gm/50 ml (Pmx)) 50 ml @ 100 mls/hr DAILY IVPB Last administered on 09/13/16t 09:43; Admin Dose 100 MLS/HR; Start 09/10/16 at 11:30 Metoclopramide HCl (Reglan) 5 mg Q6H PRN IV RESIDUALS > 100; Start 09/10/16 at 19:00 Influenza Virus Vaccine (Fluzone) 0.5 ml ONCE ONCE IM* ; Start 09/14/16 at 09:00 ; Stop 09/14/16 at 09:01 KRISTOPHER SOTO Sep 13, 2016 10:11
--- NOTE | 2016-09-13 11:57 | PN ---
DATE: 09/13/2016 PULMONARY FOLLOWUP SUBJECTIVE: The patient is breathing comfortably on the ventilator support. He seems to be awake, h is eyes are partly open, but he does not follow. OBJECTIVE: VITAL SIGNS: Show temperature 98.6, blood pressure 107/59, pulse rate is 104, respirations 28, puls e oximetry 99% saturation on 30% oxygen concentration. NECK: Tracheal secretions are clear. No bleeding is seen. HEART: Regular rhythm with sinus tachycardia. CHEST: Breath sounds are heard bilaterally, diminished in both lower lung [place] with rales and rho nchi. ABDOMEN: Soft. Tolerating gastrostomy tube feedings. Bowel sounds present. EXTREMITIES: Show no edema. He is spastic in all the extremities. LABORATORY DATA: Show sodium 136, potassium 3.8, BUN is 159 slightly lower from 165 yesterday, crea tinine is 2.92 also slightly lower from 3.08 yesterday, glucose is 84. The CBC shows a WBC 4700, he moglobin 8.6, hematocrit 24.8, platelets are still low at 30,000. IMPRESSION: 1. Sepsis syndrome. 2. Chronic respiratory failure, ventilator-dependent. 3. Acute renal failure. 4. Questionable pneumonia. 5. History of seizure disorder. 6. Chronic encephalopathy. 7. Pancytopenia. RECOMMENDATIONS: 1. Continue long-term ventilator support. 2. Continue antibiotics as per infectious disease transportation consultant. 3. Continue IV hydration. 4. Continue supportive therapy. Dictated By: VEENA STREETER MD SR/NTS Conf#: [id number] DID#: [id number]
--- NOTE | 2016-09-13 12:03 | CONS ---
Date/Time of Note Date/Time of Note DATE: 09/13/16 TIME: 12:02 Assessment/Plan Assessment/Plan Chief Complaint/Hosp Course SUBJECTIVE: No acute changes overnight per discussion with staff, patient is awake, nonverbal, lying comfortably in bed. Afebrile MICROBIOLOGY: Sputum culture on admission grew Klebsiella and achromobacter species. Stool for C. diff negative. Urine culture negative. INDWELLINGS: Trach, PEG, Brar, left IJ triple-lumen catheter. ANTIMICROBIALS: The patient is on Cefepime. PHYSICAL EXAMINATION: GENERAL: This is a fragile, chronically ill-appearing, middle-aged white man who is nonverbal, noncommunicative, lying comfortably in bed. HEENT: Head atraumatic, normocephalic. Sclerae anicteric. Buccal mucosa dry. NECK: Supple. Tracheostomy present. CHEST: Rise symmetrical. Breath sounds diminished to bases. HEART: S1, S2. ABDOMEN: Soft. Bowel tones hypoactive. EXTREMITIES: Contractured with multiple decubiti. ASSESSMENT: 1. Resolving sepsis status post shock. 2. Multiple decubitus, possibly infected. 3. Chronic respiratory failure. 4. Anemia. 5. Seizure disorder. 6. Chronic kidney disease. 7. ALLERGY TO ZITHROMAX, ZOSYN AND ERYTHROMYCIN. PLAN: The patient remains stable. No fevers, will dc abx in am, continue local wound care. Vent per pulmonary DW staff Problems: Consultation Date/Type/Reason Admit Date/Time Sep 06, 2016 at 22:27 Initial Consult Date 09/07/16 Type of Consultation: id Referring Provider: FREDDY COELLO MD Exam/Review of Systems Vital Signs Vitals Vital Signs Date Time Temp Pulse Resp B/P Pulse Ox O2 Delivery O2 Flow Rate FiO2 09/13/16 09:03 105 09/13/16 09:00 28 99 30 09/13/16 08:55 98.6 107/59 09/11/16 20:00 Mechanical Ventilator Intake and Output 09/12/16 09/12/16 09/13/16 15:00 23:00 07:00 Intake Total 180 ml 700 ml 600 ml Output Total 500 ml 650 ml Balance 180 ml 200 ml -50 ml Results Result Diagram: 09/13/16 0524 09/13/16 0524 Results 24 hrs Laboratory Tests Test 2/16/17 05:24 Activated Partial Thromboplast Time 45.2 H Alanine Aminotransferase (ALT/SGPT) 15 Albumin 1.9 L Albumin/Globulin Ratio 0.48 Alkaline Phosphatase 204 H Anion Gap 15 Aspartate Amino Transf (AST/SGOT) 13 L Basophils # 0.0 Basophils % 0.2 Blood Morphology Comment Blood Urea Nitrogen 159 H Calcium Level 8.2 L Carbon Dioxide Level 23 Chloride Level 102 Creatinine 2.92 H Direct Bilirubin 0.00 Eosinophils # 0.1 Eosinophils % 1.9 Globulin 3.90 H Glucose Level 84 Hematocrit 24.8 L Hemoglobin 8.6 L INR International Normalized Ratio 1.23 Indirect Bilirubin 0.0 Lymphocytes # 0.5 L Lymphocytes % 10.4 L Mean Corpuscular Hemoglobin 31.2 Mean Corpuscular Hemoglobin Concent 34.7 Mean Corpuscular Volume 89.9 Mean Platelet Volume 9.7 Monocytes # 0.4 Monocytes % 8.8 Neutrophils # 3.7 Neutrophils % 78.7 H Nucleated Red Blood Cells # 0.0 Nucleated Red Blood Cells % 0.0 Platelet Count 30 L Potassium Level 3.8 Prothrombin Time 15.6 H Prothrombin Time Ratio 1.2 Red Blood Count 2.76 L Red Cell Distribution Width 14.9 H Sodium Level 136 Total Bilirubin 0.0 L Total Protein 5.8 L White Blood Count 4.7 L Medications Medications Current Medications Acetaminophen (Tylenol Liquid) 640 mg Q6H PRN GTB PAIN OR TEMP ABOVE 38C; Start 09/06/16 at 22:30 Allopurinol (Zyloprim) 200 mg DAILY GTB Last administered on 09/13/16 09:42; Admin Dose 200 MG; Start 09/07/16 at 09:00 Ascorbic Acid (Vitamin C) 500 mg BID GTB Last administered on 09/13/16 09:43; Admin Dose 500 MG; Start 09/07/16 at 09:00 Calcitriol (Rocaltrol) 0.25 mcg DAILY GTB Last administered on 09/13/16 09:42 ; Admin Dose 0.25 MCG; Start 09/07/16 at 09:00 Chlorhexidine Gluconate (Peridex) 15 ml BID MM Last administered on 09/13/16 09:42; Admin Dose 15 ML; Start 09/07/16 at 09:00 Famotidine (Pepcid) 40 mg DAILY GTB Last administered on 09/13/16 09:42; Admin Dose 40 MG; Start 09/07/16 at 09:00 Lansoprazole (Prevacid) 30 mg BID@06,18 GTB Last administered on 09/13/16 05: 53; Admin Dose 30 MG; Start 09/07/16 at 06:00 Levetiracetam (Keppra Liquid) 500 mg BID GTB Last administered on 09/13/16 09: 42; Admin Dose 500 MG; Start 09/07/16 at 09:00 Metoclopramide HCl (Reglan) 5 mg Q8H PRN GTB NAUSEA AND/OR VOMITING; Start 09/06 at 22:30 Sucralfate (Carafate Susp) 1 gm BID GTB Last administered on 09/13/16 09:42; Admin Dose 1 GM; Start 09/07/16 at 09:00 Zinc Sulfate (Zinc Sulfate) 220 mg DAILY GTB Last administered on 09/13/16 09: 42; Admin Dose 220 MG; Start 09/07/16 at 09:00 Ondansetron HCl (Zofran Inj) 4 mg Q6H PRN IV NAUSEA AND/OR VOMITING Last administered on 09/09/16 22:03; Admin Dose 4 MG; Start 09/06/16 at 22:30 Morphine Sulfate (morphine) 2 mg Q4H PRN IV PAIN LEVEL 7-10 Last administered on 09/10/16 14:36; Admin Dose 2 MG; Start 09/06/16 at 22:30 Collagenase (Santyl) 1 applic DAILY TOP Last administered on 09/13/16 09:43; Admin Dose 1 APPLIC; Start 09/07/16 at 19:30; Stop 09/15/16 at 11:30 Citric Acid/ Sodium Citrate 30 ml 30 ml TID PO Last administered on 09/13/16 09:40; Admin Dose 30 ML; Start 09/09/16 at 13:00 Cefepime HCl (Maxipime 1gm/50 ml (Pmx)) 50 ml @ 100 mls/hr DAILY IVPB Last administered on 09/13/16 09:43; Admin Dose 100 MLS/HR; Start 09/10/16 at 11:30 Metoclopramide HCl (Reglan) 5 mg Q6H PRN IV RESIDUALS > 100; Start 09/10/16 at 19:00 Influenza Virus Vaccine (Fluzone) 0.5 ml ONCE ONCE IM* ; Start 09/14/16 at 09:00 ; Stop 09/14/16 at 09:01 ARUN DIANA NP Sep 13, 2016 12:03
[2016-09-13] MEDS: morphine 2 MG INJ IV PRN (23:05)
[2016-09-14] VITALS (28 sets, daily range): BP systolic 119–180; BP diastolic 60–86; PULSE 77–97; RESP 14–18
[2016-09-14] MEDS: LANSOPRAZOLE 30 MG CAP GTB SCH ×2 (05:46→18:32)
[2016-09-14 07:08] LABS: INR 1.26; PROTIME 15.9 Sec (12.2-14.2); PT RATIO 1.2
[2016-09-14 07:09] LABS: PARTIAL THROMBOPLASTIN TIME 45.3 Sec (25.0-35.0)
[2016-09-14 07:10] LABS: BASOPHILS % 0.2 % (0.0-2.0); EOSINOPHILS # 0.1 10^3/ul (0.0-0.5); EOSINOPHILS % 1.6 % (0.0-7.0); HEMATOCRIT 25.1 % (42.0-52.0); HEMOGLOBIN 8.6 g/dl (14.0-18.0); LYMPHOCYTES # 0.5 10^3/ul (0.8-2.9); LYMPHOCYTES % 11.1 % (15.0-51.0); MEAN CORPUSCULAR HEMOGLOBIN 30.7 pg (29.0-33.0); MEAN CORPUSCULAR HGB CONC 34.1 g/dl (32.0-37.0); MEAN PLATELET VOLUME 10.1 fl (7.4-10.4); MONOCYTE # 0.4 10^3/ul (0.3-0.9); MONOCYTES % 9.3 % (0.0-11.0); NEUTROPHIL # 3.7 10^3/ul (1.6-7.5); NEUTROPHILS % 77.8 % (39.0-77.0); RED BLOOD COUNT 2.79 10^6/ul (4.70-6.10); RED CELL DISTRIBUTION WIDTH 14.6 % (11.5-14.5); UNCORRECTED WBC 4.7 10^3/ul (4.8-10.8); WHITE BLOOD COUNT 4.7 10^3/ul (4.8-10.8)
[2016-09-14 07:11] LABS: MAGNESIUM 2.2 mg/dl (1.7-2.5); PHOSPHORUS 3.6 mg/dl (2.5-4.9)
[2016-09-14 07:14] LABS: POTASSIUM 3.8 mmol/L (3.5-5.1)
[2016-09-14 07:16] LABS: ALBUMIN/GLOBULIN RATIO 0.47; CONDITION 1; CREATININE 3.06 mg/dl (0.61-1.24); LH ANALYZER COMMENTS 1; TOTAL PROTEIN 6.2 g/dl (6.1-8.1)
[2016-09-14 07:17] LABS: CALCIUM 8.3 mg/dl (8.4-10.2); PLATELET COUNT 32 10^3/UL (140-440)
[2016-09-14] MEDS ORDERED: INFLUENZA VIRUS VACCINE 0.5 ML (DISPENSING) IM* ONE (09:00)
--- NOTE | 2016-09-14 09:06 | CONS ---
Date/Time of Note Date/Time of Note DATE: 09/14/16 TIME: 08:59 Assessment/Plan Assessment/Plan Additional Assessment/Plan 1. Acute kidney injury on possible chronic kidney disease unknown stage secondary to severe prerenal azotemia causing ischemic acute tubular necrosis in the setting of severe anemia. 2. Severe anemia, rule out gastrointestinal bleeding.s/p PRBC , now HB 9.1 3. Chronic respiratory failure, status post tracheostomy, on vent. 4. Pancytopenia. 5. History of a seizure disorder. 6. Possible concern about septic shock. PLAN: s/p PRBC- now Hb 8.6 Us showed kidneys are small in size and increased echogenicity c/w chronic medical renal disease BUN/Cr still high with labile BP , urine output 1.2 liter in last 24 hr- BUN continues to be high, plan for initiation of HD- previously sister agreed for HD initiation [place]wey Catheter placement by vascular surgery Blood transfusion plan as per GI and Primary care will follow up discussed with patient Sister Francesco Khan SR on [phone] discussed about options about having hemodialysis, she knows what is dialysis and Agreed to initiate hemodilaysis today Consultation Date/Type/Reason Admit Date/Time Sep 06, 2016 at 22:27 Initial Consult Date 09/07/16 Type of Consultation: NEPHROLOGY Reason for Consultation acute kidney injury, uremia with urea 159 Referring Provider: FREDDY COELLO MD 24 HR Interval Summary Free Text/Dictation BUN continues to high, Cr >3.0 today, Urine output 1.2 liter Exam/Review of Systems Vital Signs Vitals Vital Signs Date Time Temp Pulse Resp B/P Pulse Ox O2 Delivery O2 Flow Rate FiO2 09/14/16 07:33 97.9 95 14 151/86 96 09/14/16 07:15 30 09/11/16 20:00 Mechanical Ventilator Intake and Output 09/13/16 09/13/16 09/14/16 15:00 23:00 07:00 Intake Total 80 ml 700 ml 660 ml Output Total 650 ml 600 ml Balance 80 ml 50 ml 60 ml Exam NECK: Tracheal secretions are clear. No bleeding is seen. HEART: Regular rhythm. CHEST: Breath sounds are heard bilaterally, diminished in both the lower lung [place] with a few intermittent rales and rhonchi. ABDOMEN: Soft. He is tolerating gastrostomy tube feedings. No vomiting has been reported. No distention is seen. EXTREMITIES: Show muscle wasting and spasticity. Results Result Diagram: 09/14/1639 09/14/1639 Results 24 hrs Laboratory Tests Test 09/14/16 05:39 Activated Partial Thromboplast Time 45.3 H Alanine Aminotransferase (ALT/SGPT) 18 Albumin 2.0 L Albumin/Globulin Ratio 0.47 Alkaline Phosphatase 225 H Anion Gap 16 Aspartate Amino Transf (AST/SGOT) 15 Basophils # 0.0 Basophils % 0.2 Blood Morphology Comment Blood Urea Nitrogen 159 H Calcium Level 8.3 L Carbon Dioxide Level 25 Chloride Level 100 Creatinine 3.06 H Direct Bilirubin 0.00 Eosinophils # 0.1 Eosinophils % 1.6 Globulin 4.20 H Glucose Level 76 Hematocrit 25.1 L Hemoglobin 8.6 L INR International Normalized Ratio 1.26 Indirect Bilirubin 0.0 Lymphocytes # 0.5 L Lymphocytes % 11.1 L Magnesium Level 2.2 Mean Corpuscular Hemoglobin 30.7 Mean Corpuscular Hemoglobin Concent 34.1 Mean Corpuscular Volume 90.0 Mean Platelet Volume 10.1 Monocytes # 0.4 Monocytes % 9.3 Neutrophils # 3.7 Neutrophils % 77.8 H Nucleated Red Blood Cells # 0.0 Nucleated Red Blood Cells % 0.0 Phosphorus Level 3.6 Platelet Count 32 L Potassium Level 3.8 Prothrombin Time 15.9 H Prothrombin Time Ratio 1.2 Red Blood Count 2.79 L Red Cell Distribution Width 14.6 H Sodium Level 137 Total Bilirubin 0.0 L Total Protein 6.2 White Blood Count 4.7 L Medications Medications Current Medications Acetaminophen (Tylenol Liquid) 640 mg Q6H PRN GTB PAIN OR TEMP ABOVE 38C; Start 09/06/16 at 22:30 Allopurinol (Zyloprim) 200 mg DAILY GTB Last administered on 09/13/16 09:42; Admin Dose 200 MG; Start 09/07/16 at 09:00 Ascorbic Acid (Vitamin C) 500 mg BID GTB Last administered on 09/13/16 21:19; Admin Dose 500 MG; Start 09/07/16 at 09:00 Calcitriol (Rocaltrol) 0.25 mcg DAILY GTB Last administered on 09/13/16 09:42 ; Admin Dose 0.25 MCG; Start 09/07/16 at 09:00 Chlorhexidine Gluconate (Peridex) 15 ml BID MM Last administered on 09/13/16 21:18; Admin Dose 15 ML; Start 09/07/16 at 09:00 Famotidine (Pepcid) 40 mg DAILY GTB Last administered on 09/13/16 09:42; Admin Dose 40 MG; Start 09/07/16 at 09:00 Lansoprazole (Prevacid) 30 mg BID@18 GTB Last administered on 09/14/16 05: 46; Admin Dose 30 MG; Start 09/07/16 at 06:00 Levetiracetam (Keppra Liquid) 500 mg BID GTB Last administered on 09/13/16 21: 18; Admin Dose 500 MG; Start 09/07/16 at 09:00 Metoclopramide HCl (Reglan) 5 mg Q8H PRN GTB NAUSEA AND/OR VOMITING; Start 09/06 at 22:30 Sucralfate (Carafate Susp) 1 gm BID GTB Last administered on 09/13/16 21:18; Admin Dose 1 GM; Start 09/07/16 at 09:00 Zinc Sulfate (Zinc Sulfate) 220 mg DAILY GTB Last administered on 09/13/16 09: 42; Admin Dose 220 MG; Start 09/07/16 at 09:00 Ondansetron HCl (Zofran Inj) 4 mg Q6H PRN IV NAUSEA AND/OR VOMITING Last administered on 09/09/16 22:03; Admin Dose 4 MG; Start 09/06/16 at 22:30 Morphine Sulfate (morphine) 2 mg Q4H PRN IV PAIN LEVEL 7-10 Last administered on 09/13/16 23:05; Admin Dose 2 MG; Start 09/06/16 at 22:30 Collagenase (Santyl) 1 applic DAILY TOP Last administered on 09/13/16 09:43; Admin Dose 1 APPLIC; Start 09/07/16 at 19:30; Stop 09/15/16 at 11:30 Citric Acid/ Sodium Citrate (Bicitra) 30 ml TID PO Last administered on 21:18; Admin Dose 30 ML; Start 09/09/16 at 13:00 Metoclopramide HCl (Reglan) 5 mg Q6H PRN IV RESIDUALS > 100; Start 09/10/16 at 19:00 Influenza Virus Vaccine (Fluzone) 0.5 ml ONCE ONCE IM* ; Start 09/14/16 at 09:00 ; Stop 09/14/16 at 09:01 Clonidine (Catapres) 0.1 mg Q6H PRN GTB ELEVATED SYSTOLIC BP Last administered on 09/14/16t 05:45; Admin Dose 0.1 MG; Start 09/13/16 at 23:00 KENIA TURCIOS MD Sep 14, 2016 09:06
[2016-09-14] MEDS: CALCITRIOL 0.25 MCG CAP GTB SCH (09:53)
[2016-09-14] MEDS: ASCORBIC ACID 500 MG TAB GTB SCH ×2 (09:53→22:16)
[2016-09-14] MEDS: FAMOTIDINE 20 MG TAB GTB SCH (09:53)
[2016-09-14] MEDS: ALLOPURINOL 100 MG TAB GTB SCH (09:53)
[2016-09-14] MEDS: SEVELAMER CARBONATE 2.4 GM PKT GTB SCH ×3 (09:54→18:32)
[2016-09-14] MEDS: CHLORHEXIDINE GLUCONATE 15 ML UD CUP MM SCH ×2 (09:54→22:17)
[2016-09-14] MEDS: LEVETIRACETAM (100 MG/ML) 5ML CUP GTB SCH ×2 (09:54→22:17)
[2016-09-14] MEDS: COLLAGENASE 30 GM TUBE TOP SCH (09:54)
[2016-09-14] MEDS: ZINC SULFATE 220 MG CAP GTB SCH (09:54)
[2016-09-14] MEDS: SUCRALFATE (100 MG/ML) 10ML CUP GTB SCH ×2 (09:54→22:17)
--- NOTE | 2016-09-14 12:25 | PN ---
DATE: 09/14/2016 PULMONARY FOLLOWUP NOTE SUBJECTIVE: The patient's general condition is the same. He seems to open his eyes intermittently, but he does not follow. He appears to be breathing comfortably with ventilator support. PHYSICAL EXAMINATION: VITAL SIGNS: Stable. Temperature is 98.1, blood pressure 146/74, pulse rate is 80, respirations 14 , pulse oximetry 97% saturation. NECK: Tracheal secretions are clear. No bleeding is seen. HEART: Regular rhythm. CHEST: Breath sounds are heard bilaterally, diminished in both the lower lung [place], with a few in termittent rales and rhonchi. ABDOMEN: Soft, not distended. Bowel sounds are present. EXTREMITIES: Show no edema. He is spastic in all extremities. LABORATORY: Labs from today shows sodium 137, potassium 3.8, BUN 159, creatinine 3.06, glucose 76. B UN and creatinine are almost the same, but the creatinine has slightly increased. The CBC shows a WB C of 4700, hemoglobin 8.6, hematocrit of 25.1, platelets decreased to 32,000. IMPRESSION: 1. Sepsis syndrome. 2. Chronic respiratory failure, ventilator-dependent. 3. Acute renal failure. 4. Questionable pneumonia. 5. History of seizure disorder. 6. Chronic encephalopathy. 7. Pancytopenia. RECOMMENDATIONS: 1. Continue long-term ventilator support. 2. Continue antibiotics as per the infectious disease solution consultant. At present he is on cefepime. 3. Continue IV hydration. 4. Continue supportive therapy. 5. Dialysis is being considered to improve his renal status. Dictated By: VEENA STREETER MD, SR/NIKOLAI Conf#: [id number] DID#: [id number]
--- NOTE | 2016-09-14 13:22 | CONS ---
Date/Time of Note Date/Time of Note DATE: 09/14/16 TIME: 13:22 Assessment/Plan Assessment/Plan Chief Complaint/Hosp Course SUBJECTIVE: No acute changes overnight per discussion with staff, patient is awake, nonverbal, lying comfortably in bed. Afebrile MICROBIOLOGY: Sputum culture on admission grew Klebsiella and achromobacter species. Stool for C. diff negative. Urine culture negative. INDWELLINGS: Trach, PEG, Brar, left IJ triple-lumen catheter. ANTIMICROBIALS: The patient is s/p Cefepime. PHYSICAL EXAMINATION: GENERAL: This is a fragile, chronically ill-appearing, middle-aged white man who is nonverbal, noncommunicative, lying comfortably in bed. HEENT: Head atraumatic, normocephalic. Sclerae anicteric. Buccal mucosa dry. NECK: Supple. Tracheostomy present. CHEST: Rise symmetrical. Breath sounds diminished to bases. HEART: S1, S2. ABDOMEN: Soft. Bowel tones hypoactive. EXTREMITIES: Contractured with multiple decubiti. ASSESSMENT: 1. Resolving sepsis status post shock. 2. Multiple decubitus, possibly infected. 3. Chronic respiratory failure. 4. Anemia. 5. Seizure disorder. 6. Chronic kidney disease. 7. ALLERGY TO ZITHROMAX, ZOSYN AND ERYTHROMYCIN. PLAN: The patient remains stable. No fevers, abx discontinued, continue local wound care. Vent per pulmonary DW staff Problems: Consultation Date/Type/Reason Admit Date/Time Sep 06, 2016 at 22:27 Initial Consult Date 09/07/16 Type of Consultation: id Referring Provider: FREDDY COELLO MD Exam/Review of Systems Vital Signs Vitals Vital Signs Date Time Temp Pulse Resp B/P Pulse Ox O2 Delivery O2 Flow Rate FiO2 09/14/16 12:21 83 09/14/16 11:15 14 97 30 09/14/16 11:14 98.1 146/74 09/11/16 20:00 Mechanical Ventilator Intake and Output 09/13/16 09/13/16 09/14/16 15:00 23:00 07:00 Intake Total 80 ml 700 ml 660 ml Output Total 650 ml 600 ml Balance 80 ml 50 ml 60 ml Results Result Diagram: 09/14/16 0539 09/14/16 0539 Results 24 hrs Laboratory Tests Test 09/14/16 05:39 Activated Partial Thromboplast Time 45.3 H Alanine Aminotransferase (ALT/SGPT) 18 Albumin 2.0 L Albumin/Globulin Ratio 0.47 Alkaline Phosphatase 225 H Anion Gap 16 Aspartate Amino Transf (AST/SGOT) 15 Basophils # 0.0 Basophils % 0.2 Blood Morphology Comment Blood Urea Nitrogen 159 H Calcium Level 8.3 L Carbon Dioxide Level 25 Chloride Level 100 Creatinine 3.06 H Direct Bilirubin 0.00 Eosinophils # 0.1 Eosinophils % 1.6 Globulin 4.20 H Glucose Level 76 Hematocrit 25.1 L Hemoglobin 8.6 L INR International Normalized Ratio 1.26 Indirect Bilirubin 0.0 Lymphocytes # 0.5 L Lymphocytes % 11.1 L Magnesium Level 2.2 Mean Corpuscular Hemoglobin 30.7 Mean Corpuscular Hemoglobin Concent 34.1 Mean Corpuscular Volume 90.0 Mean Platelet Volume 10.1 Monocytes # 0.4 Monocytes % 9.3 Neutrophils # 3.7 Neutrophils % 77.8 H Nucleated Red Blood Cells # 0.0 Nucleated Red Blood Cells % 0.0 Phosphorus Level 3.6 Platelet Count 32 L Potassium Level 3.8 Prothrombin Time 15.9 H Prothrombin Time Ratio 1.2 Red Blood Count 2.79 L Red Cell Distribution Width 14.6 H Sodium Level 137 Total Bilirubin 0.0 L Total Protein 6.2 White Blood Count 4.7 L Medications Medications Current Medications Acetaminophen (Tylenol Liquid) 640 mg Q6H PRN GTB PAIN OR TEMP ABOVE 38C; Start 09/06/16 at 22:30 Allopurinol (Zyloprim) 200 mg DAILY GTB Last administered on 09/14/16 09:53; Admin Dose 200 MG; Start 09/07/16 at 09:00 Ascorbic Acid (Vitamin C) 500 mg BID GTB Last administered on 09/14/16 09:53; Admin Dose 500 MG; Start 09/07/16 at 09:00 Calcitriol (Rocaltrol) 0.25 mcg DAILY GTB Last administered on 09/14/16 09:53 ; Admin Dose 0.25 MCG; Start 09/07/16 at 09:00 Chlorhexidine Gluconate (Peridex) 15 ml BID MM Last administered on 09/14/16 09:54; Admin Dose 15 ML; Start 09/07/16 at 09:00 Famotidine (Pepcid) 40 mg DAILY GTB Last administered on 09/14/16 09:53; Admin Dose 40 MG; Start 09/07/16 at 09:00 Lansoprazole (Prevacid) 30 mg BID@ GTB Last administered on 09/14/16 05: 46; Admin Dose 30 MG; Start 09/07/16 at 06:00 Levetiracetam (Keppra Liquid) 500 mg BID GTB Last administered on 09/14/16 09: 54; Admin Dose 500 MG; Start 09/07/16 at 09:00 Metoclopramide HCl (Reglan) 5 mg Q8H PRN GTB NAUSEA AND/OR VOMITING; Start 09/06 at 22:30 Sucralfate (Carafate Susp) 1 gm BID GTB Last administered on 09/14/16 09:54; Admin Dose 1 GM; Start 09/07/16 at 09:00 Zinc Sulfate (Zinc Sulfate) 220 mg DAILY GTB Last administered on 09/14/16 09: 54; Admin Dose 220 MG; Start 09/07/16 at 09:00 Ondansetron HCl (Zofran Inj) 4 mg Q6H PRN IV NAUSEA AND/OR VOMITING Last administered on 09/09/16 22:03; Admin Dose 4 MG; Start 09/06/16 at 22:30 Morphine Sulfate (morphine) 2 mg Q4H PRN IV PAIN LEVEL 7-10 Last administered on 09/13/16 23:05; Admin Dose 2 MG; Start 09/06/16 at 22:30 Collagenase (Santyl) 1 applic DAILY TOP Last administered on 09/14/16 09:54; Admin Dose 1 APPLIC; Start 09/07/16 at 19:30; Stop 09/15/16 at 11:30 Metoclopramide HCl (Reglan) 5 mg Q6H PRN IV RESIDUALS > 100; Start 09/10/16 at 19:00 Clonidine (Catapres) 0.1 mg Q6H PRN GTB ELEVATED SYSTOLIC BP Last administered on 09/14/16 05:45; Admin Dose 0.1 MG; Start 09/13/16 at 23:00 ARUN DIANA NP Sep 14, 2016 13:22
--- NOTE | 2016-09-14 17:26 | PN ---
Date/Time of Note Date/Time of Note DATE: 09/14/16 TIME: 17:16 Assessment/Plan VTE Prophylaxis VTE Prophylaxis Intervention: SCD's Lines/Catheters [facility] Central Line Central line still needed: Yes Urinary Cath still in place: Yes Reason Cath still needed: urinary retention Assessment/Plan Chief Complaint/Hosp Course ASSESSMENT AND PLAN: 1. Severe anemia 2 GI bleed. Continue to monitor hemoglobin and hematocrit. Dr. Singh is following in gastroenterology consultation. 2. Hypovolemic shock, resolving. continue IV fluids. 3. Acute kidney failure on chronic kidney disease. continue to monitor BUN and creatinine. Dr. Mk Purdy is following in nephrology consultation. Patient with worsening renal function. Hemodialysis will be started upon hemodialysis catheter placement. 4. Pancytopenia. 5. Ventilator-dependent respiratory failure. 6. Possible healthcare-acquired pneumonia. Dr. Aragon is following in pulmonology consultation. Continue ventilator support, bronchodilators. The patient will continue broad spectrum antibiotics for possible pneumonia. 7. Dysphagia with PEG. 8. History of seizure disorder. Continue patient on Keppra. 9. Diastolic dysfunction congestive heart failure with preserved ejection fraction of 60%. 10. Possible sepsis. Dr. Guy is following patient in infectious disease consultation. 11. Status post cerebrovascular accident, status post craniotomy. 12. Mental retardation. Continue Protonix for peptic ulcer disease prophylaxis. Further recommendations based on clinical course. Plan of care discussed with Dr. Mcelroy. Problems: Subjective 24 Hr Interval Summary Free Text/Dictation No acute events overnight, patient tolerates G-tube feeding well, remains afebrile. Exam/Review of Systems Vital Signs Vitals Vital Signs Date Time Temp Pulse Resp B/P Pulse Ox O2 Delivery O2 Flow Rate FiO2 09/14/16 16:19 90 09/14/16 15:25 98.1 16 143/73 96 09/14/16 15:05 30 09/11/16 20:00 Mechanical Ventilator Intake and Output 09/13/16 09/13/16 09/14/16 15:00 23:00 07:00 Intake Total 80 ml 700 ml 660 ml Output Total 650 ml 600 ml Balance 80 ml 50 ml 60 ml Exam GENERAL: Well-developed, frail, elderly male, on vent support via tracheostomy HEENT: Head is atraumatic. Pupils are equal and reactive to light and accommodation. Oral mucosa is dry. NECK: Supple. There is a tracheostomy at the base of the neck. CHEST: Lungs are diminished bilaterally. CARDIOVASCULAR: Normal S1, S2. No murmurs, gallops, clicks, rubs noted. ABDOMEN: Abdomen is round, soft, nondistended, nontender. Bowel sounds present. The patient has a G-tube. SKIN: No petechiae present. Patient has multiple decubitus ulcers. Please see wound care notes. EXTREMITIES: Contractures with muscle atrophy. NEUROLOGIC: The patient is awake, alert, opens eyes to commands, nonverbal, does not follow any commands. Results Result Diagram: 09/14/1639 09/14/1639 Results 24 hrs Laboratory Tests Test 09/14/16 05:39 Activated Partial Thromboplast Time 45.3 H Alanine Aminotransferase (ALT/SGPT) 18 Albumin 2.0 L Albumin/Globulin Ratio 0.47 Alkaline Phosphatase 225 H Anion Gap 16 Aspartate Amino Transf (AST/SGOT) 15 Basophils # 0.0 Basophils % 0.2 Blood Morphology Comment Blood Urea Nitrogen 159 H Calcium Level 8.3 L Carbon Dioxide Level 25 Chloride Level 100 Creatinine 3.06 H Direct Bilirubin 0.00 Eosinophils # 0.1 Eosinophils % 1.6 Globulin 4.20 H Glucose Level 76 Hematocrit 25.1 L Hemoglobin 8.6 L INR International Normalized Ratio 1.26 Indirect Bilirubin 0.0 Lymphocytes # 0.5 L Lymphocytes % 11.1 L Magnesium Level 2.2 Mean Corpuscular Hemoglobin 30.7 Mean Corpuscular Hemoglobin Concent 34.1 Mean Corpuscular Volume 90.0 Mean Platelet Volume 10.1 Monocytes # 0.4 Monocytes % 9.3 Neutrophils # 3.7 Neutrophils % 77.8 H Nucleated Red Blood Cells # 0.0 Nucleated Red Blood Cells % 0.0 Phosphorus Level 3.6 Platelet Count 32 L Potassium Level 3.8 Prothrombin Time 15.9 H Prothrombin Time Ratio 1.2 Red Blood Count 2.79 L Red Cell Distribution Width 14.6 H Sodium Level 137 Total Bilirubin 0.0 L Total Protein 6.2 White Blood Count 4.7 L Medications Medications Current Medications Acetaminophen (Tylenol Liquid) 640 mg Q6H PRN GTB PAIN OR TEMP ABOVE 38C; Start 09/06/16 at 22:30 Allopurinol (Zyloprim) 200 mg DAILY GTB Last administered on 09/14/16 09:53; Admin Dose 200 MG; Start 09/07/16 at 09:00 Ascorbic Acid (Vitamin C) 500 mg BID GTB Last administered on 09/14/16 09:53; Admin Dose 500 MG; Start 09/07/16 at 09:00 Calcitriol (Rocaltrol) 0.25 mcg DAILY GTB Last administered on 09/14/16 09:53 ; Admin Dose 0.25 MCG; Start 09/07/16 at 09:00 Chlorhexidine Gluconate (Peridex) 15 ml BID MM Last administered on 09/14/16 09:54; Admin Dose 15 ML; Start 09/07/16 at 09:00 Famotidine (Pepcid) 40 mg DAILY GTB Last administered on 09/14/16 09:53; Admin Dose 40 MG; Start 09/07/16 at 09:00 Lansoprazole (Prevacid) 30 mg BID@18 GTB Last administered on 09/14/16 05: 46; Admin Dose 30 MG; Start 09/07/16 at 06:00 Levetiracetam (Keppra Liquid) 500 mg BID GTB Last administered on 09/14/16 09: 54; Admin Dose 500 MG; Start 09/07/16 at 09:00 Metoclopramide HCl (Reglan) 5 mg Q8H PRN GTB NAUSEA AND/OR VOMITING; Start 09/06 at 22:30 Sucralfate (Carafate Susp) 1 gm BID GTB Last administered on 09/14/16 09:54; Admin Dose 1 GM; Start 09/07/16 at 09:00 Zinc Sulfate (Zinc Sulfate) 220 mg DAILY GTB Last administered on 09/14/16 09: 54; Admin Dose 220 MG; Start 09/07/16 at 09:00 Ondansetron HCl (Zofran Inj) 4 mg Q6H PRN IV NAUSEA AND/OR VOMITING Last administered on 09/09/16 22:03; Admin Dose 4 MG; Start 09/06/16 at 22:30 Morphine Sulfate (morphine) 2 mg Q4H PRN IV PAIN LEVEL 7-10 Last administered on 09/13/16 23:05; Admin Dose 2 MG; Start 09/06/16 at 22:30 Collagenase (Santyl) 1 applic DAILY TOP Last administered on 09/14/16 09:54; Admin Dose 1 APPLIC; Start 09/07/16 at 19:30; Stop 09/15/16 at 11:30 Metoclopramide HCl (Reglan) 5 mg Q6H PRN IV RESIDUALS > 100; Start 09/10/16 at 19:00 Clonidine (Catapres) 0.1 mg Q6H PRN GTB ELEVATED SYSTOLIC BP Last administered on 09/14/16 05:45; Admin Dose 0.1 MG; Start 09/13/16 at 23:00 QUIN ORTIZ Sep 14, 2016 17:26
[2016-09-15] VITALS (36 sets, daily range): BP systolic 118–180; BP diastolic 57–90; PULSE 70–98; RESP 14–22
[2016-09-15] MEDS ORDERED: hydrALAzine 20 MG INJ IV PRN ×2 (01:50)
[2016-09-15] MEDS: morphine 2 MG INJ IV PRN ×2 (02:38→05:32)
[2016-09-15 06:57] LABS: BASOPHILS % 0.1 % (0.0-2.0); EOSINOPHILS % 0.9 % (0.0-7.0); HEMATOCRIT 24.2 % (42.0-52.0); HEMOGLOBIN 8.3 g/dl (14.0-18.0); LYMPHOCYTES # 0.4 10^3/ul (0.8-2.9); LYMPHOCYTES % 7.7 % (15.0-51.0); MEAN CORPUSCULAR HEMOGLOBIN 30.8 pg (29.0-33.0); MEAN CORPUSCULAR HGB CONC 34.4 g/dl (32.0-37.0); MEAN CORPUSCULAR VOLUME 89.5 fl (82.0-101.0); MEAN PLATELET VOLUME 8.8 fl (7.4-10.4); MONOCYTE # 0.5 10^3/ul (0.3-0.9); MONOCYTES % 10.2 % (0.0-11.0); NEUTROPHIL # 3.9 10^3/ul (1.6-7.5); NEUTROPHILS % 81.1 % (39.0-77.0); PLATELET COUNT 81 10^3/UL (140-440); RED CELL DISTRIBUTION WIDTH 15.2 % (11.5-14.5); UNCORRECTED WBC 4.8 10^3/ul (4.8-10.8); WHITE BLOOD COUNT 4.8 10^3/ul (4.8-10.8)
[2016-09-15 07:00] LABS: CONDITION 1; LH ANALYZER COMMENTS 1
[2016-09-15] MEDS: LANSOPRAZOLE 30 MG CAP GTB SCH ×2 (07:06→18:16)
[2016-09-15 07:21] LABS: POTASSIUM 3.9 mmol/L (3.5-5.1)
[2016-09-15 07:24] LABS: CREATININE 3.11 mg/dl (0.61-1.24)
[2016-09-15 07:25] LABS: CALCIUM 8.5 mg/dl (8.4-10.2)
[2016-09-15] MEDS: SEVELAMER CARBONATE 2.4 GM PKT GTB SCH ×3 (07:37→18:15)
[2016-09-15] MEDS: CHLORHEXIDINE GLUCONATE 15 ML UD CUP MM SCH ×2 (08:59→22:20)
[2016-09-15] MEDS: ASCORBIC ACID 500 MG TAB GTB SCH ×2 (08:59→22:20)
[2016-09-15] MEDS: COLLAGENASE 30 GM TUBE TOP SCH (08:59)
[2016-09-15] MEDS: ZINC SULFATE 220 MG CAP GTB SCH (08:59)
[2016-09-15] MEDS: ALLOPURINOL 100 MG TAB GTB SCH (08:59)
[2016-09-15] MEDS: SUCRALFATE (100 MG/ML) 10ML CUP GTB SCH ×2 (08:59→22:20)
[2016-09-15] MEDS: FAMOTIDINE 20 MG TAB GTB SCH (08:59)
[2016-09-15] MEDS: CALCITRIOL 0.25 MCG CAP GTB SCH (08:59)
[2016-09-15] MEDS: LEVETIRACETAM (100 MG/ML) 5ML CUP GTB SCH ×2 (08:59→22:20)
--- NOTE | 2016-09-15 09:42 | PN ---
Date/Time of Note Date/Time of Note DATE: 09/15/16 TIME: 09:41 Assessment/Plan VTE Prophylaxis VTE Prophylaxis Intervention: other Lines/Catheters [facility] Central Line Central line still needed: Yes Urinary Cath still in place: Yes Reason Cath still needed: skin wounds contaminated by urine Assessment/Plan Chief Complaint/Hosp Course 1. Severe anemia 2 GI bleed. Continue to monitor hemoglobin and hematocrit. Dr. Singh is following in gastroenterology consultation. 2. Hypovolemic shock, resolving. continue IV fluids. 3. Acute kidney failure on chronic kidney disease. continue to monitor BUN and creatinine. Dr. Mk Purdy is following in nephrology consultation. Patient with worsening renal function. Hemodialysis will be started upon hemodialysis catheter placement. 4. Pancytopenia. 5. Ventilator-dependent respiratory failure. 6. Possible healthcare-acquired pneumonia. Dr. Aragon is following in pulmonology consultation. Continue ventilator support, bronchodilators. The patient will continue broad spectrum antibiotics for possible pneumonia. 7. Dysphagia with PEG. 8. History of seizure disorder. Continue patient on Keppra. 9. Diastolic dysfunction congestive heart failure with preserved ejection fraction of 60%. 10. Possible sepsis. Dr. Guy is following patient in infectious disease consultation. 11. Status post cerebrovascular accident, status post craniotomy. 12. Mental retardation. Problems: Subjective 24 Hr Interval Summary Free Text/Dictation Patient is resting, on vent via trach Exam/Review of Systems Vital Signs Vitals Vital Signs Date Time Temp Pulse Resp B/P Pulse Ox O2 Delivery O2 Flow Rate FiO2 09/15/16 09:01 92 09/15/16 08:02 97.3 14 118/62 95 09/15/16 05:45 30 09/15/16 04:00 Mechanical Ventilator Intake and Output 09/14/16 09/14/16 09/15/16 15:00 23:00 07:00 Intake Total 660 ml 298 ml Output Total 550 ml 400 ml Balance 110 ml -102 ml Exam Constitutional: well developed Head: atraumatic, normocephalic Neck: supple Respiratory: diminished breath sounds Cardiovascular: regular rate and rhythm Gastrointestinal: non-tender, soft Results Result Diagram: 09/15/16 0645 09/15/16 0645 Results 24 hrs Laboratory Tests Test 09/15/16 06:45 Anion Gap 16 Basophils # 0.0 Basophils % 0.1 Blood Morphology Comment Blood Urea Nitrogen 158 H Calcium Level 8.5 Carbon Dioxide Level 25 Chloride Level 100 Creatinine 3.11 H Eosinophils # 0.0 Eosinophils % 0.9 Glucose Level 94 Hematocrit 24.2 L Hemoglobin 8.3 L Lymphocytes # 0.4 L Lymphocytes % 7.7 L Mean Corpuscular Hemoglobin 30.8 Mean Corpuscular Hemoglobin Concent 34.4 Mean Corpuscular Volume 89.5 Mean Platelet Volume 8.8 Monocytes # 0.5 Monocytes % 10.2 Neutrophils # 3.9 Neutrophils % 81.1 H Nucleated Red Blood Cells # 0.0 Nucleated Red Blood Cells % 0.0 Platelet Count 81 #L Potassium Level 3.9 Red Blood Count 2.70 L Red Cell Distribution Width 15.2 H Sodium Level 137 White Blood Count 4.8 Medications Medications Current Medications Acetaminophen (Tylenol Liquid) 640 mg Q6H PRN GTB PAIN OR TEMP ABOVE 38C; Start 09/06/16 at 22:30 Allopurinol (Zyloprim) 200 mg DAILY GTB Last administered on 09/15/16 08:59; Admin Dose 200 MG; Start 09/07/16 at 09:00 Ascorbic Acid (Vitamin C) 500 mg BID GTB Last administered on 09/15/16 08:59; Admin Dose 500 MG; Start 09/07/16 at 09:00 Calcitriol (Rocaltrol) 0.25 mcg DAILY GTB Last administered on 09/15/16 08:59 ; Admin Dose 0.25 MCG; Start 09/07/16 at 09:00 Chlorhexidine Gluconate (Peridex) 15 ml BID MM Last administered on 09/15/16 08:59; Admin Dose 15 ML; Start 09/07/16 at 09:00 Famotidine (Pepcid) 40 mg DAILY GTB Last administered on 09/15/16 08:59; Admin Dose 40 MG; Start 09/07/16 at 09:00 Lansoprazole (Prevacid) 30 mg BID@ GTB Last administered on 09/15/16 07: 06; Admin Dose 30 MG; Start 09/07/16 at 06:00 Levetiracetam (Keppra Liquid) 500 mg BID GTB Last administered on 09/15/16 08: 59; Admin Dose 500 MG; Start 09/07/16 at 09:00 Metoclopramide HCl (Reglan) 5 mg Q8H PRN GTB NAUSEA AND/OR VOMITING; Start 09/06 at 22:30 Sucralfate (Carafate Susp) 1 gm BID GTB Last administered on 09/15/16 08:59; Admin Dose 1 GM; Start 09/07/16 at 09:00 Zinc Sulfate (Zinc Sulfate) 220 mg DAILY GTB Last administered on 09/15/16 08: 59; Admin Dose 220 MG; Start 09/07/16 at 09:00 Ondansetron HCl (Zofran Inj) 4 mg Q6H PRN IV NAUSEA AND/OR VOMITING Last administered on 09/09/16 22:03; Admin Dose 4 MG; Start 09/06/16 at 22:30 Morphine Sulfate (morphine) 2 mg Q4H PRN IV PAIN LEVEL 7-10 Last administered on 09/15/16 05:32; Admin Dose 2 MG; Start 09/06/16 at 22:30 Collagenase (Santyl) 1 applic DAILY TOP Last administered on 09/15/16 08:59; Admin Dose 1 APPLIC; Start 09/07/16 at 19:30; Stop 09/15/16 at 11:30 Metoclopramide HCl (Reglan) 5 mg Q6H PRN IV RESIDUALS > 100; Start 09/10/16 at 19:00 Clonidine (Catapres) 0.1 mg Q6H PRN GTB ELEVATED SYSTOLIC BP Last administered on 09/15/16 07:04; Admin Dose 0.1 MG; Start 09/13/16 at 23:00 Hydralazine HCl (Apresoline) 10 mg Q6H PRN IV ELEVATED SYSTOLIC BP Last administered on 09/15/16 02:08; Admin Dose 10 MG; Start 09/15/16 at 01:50 TAI PERRIN Sep 15, 2016 09:42
--- NOTE | 2016-09-15 10:52 | PN ---
DATE: 09/15/2016 SUBJECTIVE: The patient's general condition is same. He is breathing comfortably with the ventilat or support. He shows minimal eye opening, but he does not follow. OBJECTIVE: VITAL SIGNS: Show temperature 97.3, blood pressure 118/62, pulse rate of 92, respirations 14, pulse oximetry 95% saturation. His breathing appears unlabored. NECK: Tracheal secretions are clear. No bleeding is seen. HEART: Regular rhythm. CHEST: Breath sounds are heard bilaterally, diminished in both the lower lung [place] with a few int ermittent rales and rhonchi. ABDOMEN: Soft, not distended. He is tolerating gastrostomy tube feedings. No vomiting has been re ported. EXTREMITIES: Show no edema. Spastic in all the extremities. LABORATORY DATA: Show WBC 4800, hemoglobin 8.3, hematocrit 24.2, platelets slightly better at 81,00 0 though still decreased. The chemistry panel shows sodium 137, potassium 3.9, BUN 158, creatinine 3.11. BUN and creatinine are not showing significant improvement. IMPRESSION: 1. Sepsis syndrome. 2. Chronic respiratory failure, ventilator-dependent. 3. Acute renal failure. 4. Questionable pneumonia. 5. History of seizure disorder. 6. Chronic encephalopathy. 7. Pancytopenia. PLAN: 1. Continue long-term ventilator support. 2. Continue antibiotics as per the infectious disease warehouse consultant. As of now, he is on cefepime. 3. Continue hydration. 4. Continue supportive therapy. 5. The patient is scheduled to have Dewey catheter placement and dialysis to be started subseque ntly. Dictated By: VEENA STREETER MD, SR/NIKOLAI Conf#: [id number] DID#: [id number]
--- NOTE | 2016-09-15 10:55 | CONS ---
Date/Time of Note Date/Time of Note DATE: 09/15/16 TIME: 10:52 Assessment/Plan Assessment/Plan Additional Assessment/Plan 1. Acute kidney injury on possible chronic kidney disease unknown stage secondary to severe prerenal azotemia causing ischemic acute tubular necrosis in the setting of severe anemia. 2. Severe anemia,s/p PRBC 3. Chronic respiratory failure, status post tracheostomy, on vent. 4. Pancytopenia. 5. History of a seizure disorder. 6. Possible concern about septic shock. PLAN: s/p PRBC- now Hb 8.3 Us showed kidneys are small in size and increased echogenicity c/w chronic medical renal disease BUN/Cr still high with labile BP , urine output 500 cc in last 24 hr- BUN continues to be high, plan for initiation of HD- previously sister agreed for HD initiation Dewey Catheter placement by Radiology today Blood transfusion plan as per GI and Primary care will follow up discussed with patient Sister Francesco Khan SR on [phone]- discussed about options about having hemodialysis, she knows what is dialysis and Agreed to initiate hemodilaysis today Consultation Date/Type/Reason Admit Date/Time Sep 06, 2016 at 22:27 Initial Consult Date Type of Consultation: NEPHROLOGY Reason for Consultation MICHELLE on CKD not i mrpoving, still uremic Referring Provider: FREDDY COELLO MD 24 HR Interval Summary Free Text/Dictation not imroving, still uremic, awaiting dewey HD catheter Exam/Review of Systems Vital Signs Vitals Vital Signs Date Time Temp Pulse Resp B/P Pulse Ox O2 Delivery O2 Flow Rate FiO2 09/15/16 09:01 92 09/15/16 08:02 97.3 14 118/62 95 09/15/16 05:45 30 09/15/16 04:00 Mechanical Ventilator Intake and Output 09/14/16 09/14/16 09/15/16 15:00 23:00 07:00 Intake Total 660 ml 298 ml Output Total 550 ml 400 ml Balance 110 ml -102 ml Exam NECK: Tracheal secretions are clear. No bleeding is seen. HEART: Regular rhythm. CHEST: Breath sounds are heard bilaterally, diminished in both the lower lung [place] with a few intermittent rales and rhonchi. ABDOMEN: Soft. He is tolerating gastrostomy tube feedings. No vomiting has been reported. No distention is seen. EXTREMITIES: Show muscle wasting and spasticity. Results Result Diagram: 09/15/16 0645 09/15/16 0645 Results 24 hrs Laboratory Tests Test 09/15/16 06:45 Anion Gap 16 Basophils # 0.0 Basophils % 0.1 Blood Morphology Comment Blood Urea Nitrogen 158 H Calcium Level 8.5 Carbon Dioxide Level 25 Chloride Level 100 Creatinine 3.11 H Eosinophils # 0.0 Eosinophils % 0.9 Glucose Level 94 Hematocrit 24.2 L Hemoglobin 8.3 L Lymphocytes # 0.4 L Lymphocytes % 7.7 L Mean Corpuscular Hemoglobin 30.8 Mean Corpuscular Hemoglobin Concent 34.4 Mean Corpuscular Volume 89.5 Mean Platelet Volume 8.8 Monocytes # 0.5 Monocytes % 10.2 Neutrophils # 3.9 Neutrophils % 81.1 H Nucleated Red Blood Cells # 0.0 Nucleated Red Blood Cells % 0.0 Platelet Count 81 #L Potassium Level 3.9 Red Blood Count 2.70 L Red Cell Distribution Width 15.2 H Sodium Level 137 White Blood Count 4.8 Medications Medications Current Medications Acetaminophen (Tylenol Liquid) 640 mg Q6H PRN GTB PAIN OR TEMP ABOVE 38C; Start 09/06/16 at 22:30 Allopurinol (Zyloprim) 200 mg DAILY GTB Last administered on 09/15/16 08:59; Admin Dose 200 MG; Start 09/07/16 at 09:00 Ascorbic Acid (Vitamin C) 500 mg BID GTB Last administered on 09/15/16 08:59; Admin Dose 500 MG; Start 09/07/16 at 09:00 Calcitriol (Rocaltrol) 0.25 mcg DAILY GTB Last administered on 09/15/16 08:59 ; Admin Dose 0.25 MCG; Start 09/07/16 at 09:00 Chlorhexidine Gluconate (Peridex) 15 ml BID MM Last administered on 09/15/16 08:59; Admin Dose 15 ML; Start 09/07/16 at 09:00 Famotidine (Pepcid) 40 mg DAILY GTB Last administered on 09/15/16 08:59; Admin Dose 40 MG; Start 09/07/16 at 09:00 Lansoprazole (Prevacid) 30 mg BID@ GTB Last administered on 09/15/16 07: 06; Admin Dose 30 MG; Start 09/07/16 at 06:00 Levetiracetam (Keppra Liquid) 500 mg BID GTB Last administered on 09/15/16 08: 59; Admin Dose 500 MG; Start 09/07/16 at 09:00 Metoclopramide HCl (Reglan) 5 mg Q8H PRN GTB NAUSEA AND/OR VOMITING; Start 09/06 at 22:30 Sucralfate (Carafate Susp) 1 gm BID GTB Last administered on 09/15/16 08:59; Admin Dose 1 GM; Start 09/07/16 at 09:00 Zinc Sulfate (Zinc Sulfate) 220 mg DAILY GTB Last administered on 09/15/16 08: 59; Admin Dose 220 MG; Start 09/07/16 at 09:00 Ondansetron HCl (Zofran Inj) 4 mg Q6H PRN IV NAUSEA AND/OR VOMITING Last administered on 09/09/16 22:03; Admin Dose 4 MG; Start 09/06/16 at 22:30 Morphine Sulfate (morphine) 2 mg Q4H PRN IV PAIN LEVEL 7-10 Last administered on 09/15/16 05:32; Admin Dose 2 MG; Start 09/06/16 at 22:30 Collagenase (Santyl) 1 applic DAILY TOP Last administered on 09/15/16 08:59; Admin Dose 1 APPLIC; Start 09/07/16 at 19:30; Stop 09/15/16 at 11:30 Metoclopramide HCl (Reglan) 5 mg Q6H PRN IV RESIDUALS > 100; Start 09/10/16 at 19:00 Clonidine (Catapres) 0.1 mg Q6H PRN GTB ELEVATED SYSTOLIC BP Last administered on 09/15/16 07:04; Admin Dose 0.1 MG; Start 09/13/16 at 23:00 Hydralazine HCl (Apresoline) 10 mg Q6H PRN IV ELEVATED SYSTOLIC BP Last administered on 09/15/16 02:08; Admin Dose 10 MG; Start 09/15/16 at 01:50 KENIA TURCIOS MD Sep 15, 2016 10:55
[2016-09-15] MEDS ORDERED: HEPARIN 1000 UNITS/ML 10 ML INJ ONE (14:10)
[2016-09-15] MEDS ORDERED: SOD CHLORIDE 0.9% 100 ML ONE (14:10)
--- NOTE | 2016-09-15 15:27 | RADRPT ---
PROCEDURE: PLACEMENT OF LEFT INTERNAL JUGULAR VENOUS TEMPORARY DIALYSIS CATHETER. CLINICAL INDICATION: Renal failure. TECHNIQUE: Informed consent was obtained. The risks including bleeding and infection were explained to the pat ient has a family. They understood and and were willing to proceed. A procedural pause was perform ed. The patient's name, date of , and procedure to be performed were verified. The central line was inserted with all elements of maximal sterile barrier technique. All of the fol lowing were used: head covering, facial mask, sterile gown, sterile gloves, a large sterile sheet, h and hygiene, and 2% chlorhexidine for cutaneous antisepsis. The left neck, existing left internal jugular vein triple-lumen catheter, and anterior superior chest wall was prepped and draped in the u sual sterile fashion. Using local anesthesia, sterile technique, and fluoroscopic guidance, a 0.035 inch Glidewire was adv anced through the existing triple-lumen catheter into the superior vena cava, then the right atrium, then the inferior vena cava. Serial dilatation was performed to 12 Japanese following removal of the existing triple-lumen catheter over the guidewire. The temporary dialysis catheter was then advanc ed over the guidewire such that the tip was placed in the superior vena cava. A 16 cm cm long, 12 F rench triple-lumen temporary dialysis catheter was used. Tip position was confirmed in the superior vena cava with fluoroscopy. The 3 ports were flushed with heparin. The catheter was secured to th e skin with 2-0 monofilament. The site was dressed. The patient tolerated the procedure well. COMPARISON: None. FINDINGS: Final radiographic images demonstrate the tip of the catheter in the upper superior vena cava A tot al of 0.3 minutes of fluoroscopy time was used. 6 images were obtained. IMPRESSION: 1. SATISFACTORY INSERTION OF LEFT INTERNAL JUGULAR VENOUS TEMPORARY DIALYSIS CATHETER WITH FLUOROSCO PIC GUIDANCE. RPTAT: QQ .Yoan George MD, Date Time Electronically viewed and signed by .Yoan George MD, on 09/15/2016 15:26 .R/
--- NOTE | 2016-09-15 20:10 | CONS ---
Date/Time of Note Date/Time of Note DATE: 09/15/16 TIME: 20:09 Assessment/Plan Assessment/Plan Chief Complaint/Hosp Course SUBJECTIVE: No acute changes overnight per discussion with staff, patient is awake, nonverbal, lying comfortably in bed. Afebrile MICROBIOLOGY: Sputum culture on admission grew Klebsiella and achromobacter species. Stool for C. diff negative. Urine culture negative. INDWELLINGS: Trach, PEG, Brar, left IJ triple-lumen catheter, HD cath. PHYSICAL EXAMINATION: GENERAL: This is a fragile, chronically ill-appearing, middle-aged white man who is nonverbal, noncommunicative, lying comfortably in bed. HEENT: Head atraumatic, normocephalic. Sclerae anicteric. Buccal mucosa dry. NECK: Supple. Tracheostomy present. CHEST: Rise symmetrical. Breath sounds diminished to bases. HEART: S1, S2. ABDOMEN: Soft. Bowel tones hypoactive. EXTREMITIES: Contractured with multiple decubiti. ASSESSMENT: 1. Resolving sepsis status post shock. 2. Multiple decubitus, possibly infected. 3. Chronic respiratory failure. 4. Anemia. 5. Seizure disorder. 6. Chronic kidney disease. 7. ALLERGY TO ZITHROMAX, ZOSYN AND ERYTHROMYCIN. PLAN: The patient remains stable. Off abx, no fevers, continue local wound care. Vent per pulmonary DW staff Problems: Consultation Date/Type/Reason Admit Date/Time Sep 06, 2016 at 22:27 Initial Consult Date 09/07/16 Type of Consultation: ID Referring Provider: FREDDY COELLO MD Exam/Review of Systems Vital Signs Vitals Vital Signs Date Time Temp Pulse Resp B/P Pulse Ox O2 Delivery O2 Flow Rate FiO2 09/15/16 19:30 97.3 86 16 152/76 99 09/15/16 17:26 35 09/15/16 04:00 Mechanical Ventilator Intake and Output 09/14/16 09/14/16 09/15/16 15:00 23:00 07:00 Intake Total 660 ml 298 ml Output Total 550 ml 400 ml Balance 110 ml -102 ml Results Result Diagram: 09/15/16 0645 09/15/16 0645 Results 24 hrs Laboratory Tests Test 09/15/16 06:45 Anion Gap 16 Basophils # 0.0 Basophils % 0.1 Blood Morphology Comment Blood Urea Nitrogen 158 H Calcium Level 8.5 Carbon Dioxide Level 25 Chloride Level 100 Creatinine 3.11 H Eosinophils # 0.0 Eosinophils % 0.9 Glucose Level 94 Hematocrit 24.2 L Hemoglobin 8.3 L Lymphocytes # 0.4 L Lymphocytes % 7.7 L Mean Corpuscular Hemoglobin 30.8 Mean Corpuscular Hemoglobin Concent 34.4 Mean Corpuscular Volume 89.5 Mean Platelet Volume 8.8 Monocytes # 0.5 Monocytes % 10.2 Neutrophils # 3.9 Neutrophils % 81.1 H Nucleated Red Blood Cells # 0.0 Nucleated Red Blood Cells % 0.0 Platelet Count 81 #L Potassium Level 3.9 Red Blood Count 2.70 L Red Cell Distribution Width 15.2 H Sodium Level 137 White Blood Count 4.8 Medications Medications Current Medications Acetaminophen (Tylenol Liquid) 640 mg Q6H PRN GTB PAIN OR TEMP ABOVE 38C; Start 09/06/16 at 22:30 Allopurinol (Zyloprim) 200 mg DAILY GTB Last administered on 09/15/16 08:59; Admin Dose 200 MG; Start 09/07/16 at 09:00 Ascorbic Acid (Vitamin C) 500 mg BID GTB Last administered on 09/15/16 08:59; Admin Dose 500 MG; Start 09/07/16 at 09:00 Calcitriol (Rocaltrol) 0.25 mcg DAILY GTB Last administered on 09/15/16 08:59 ; Admin Dose 0.25 MCG; Start 09/07/16 at 09:00 Chlorhexidine Gluconate (Peridex) 15 ml BID MM Last administered on 09/15/16 08:59; Admin Dose 15 ML; Start 09/07/16 at 09:00 Famotidine (Pepcid) 40 mg DAILY GTB Last administered on 09/15/16 08:59; Admin Dose 40 MG; Start 09/07/16 at 09:00 Lansoprazole (Prevacid) 30 mg BID@ GTB Last administered on 09/15/16 18: 16; Admin Dose 30 MG; Start 09/07/16 at 06:00 Levetiracetam (Keppra Liquid) 500 mg BID GTB Last administered on 09/15/16 08: 59; Admin Dose 500 MG; Start 09/07/16 at 09:00 Metoclopramide HCl (Reglan) 5 mg Q8H PRN GTB NAUSEA AND/OR VOMITING; Start 09/06 at 22:30 Sucralfate (Carafate Susp) 1 gm BID GTB Last administered on 09/15/16 08:59; Admin Dose 1 GM; Start 09/07/16 at 09:00 Zinc Sulfate (Zinc Sulfate) 220 mg DAILY GTB Last administered on 09/15/16 08: 59; Admin Dose 220 MG; Start 09/07/16 at 09:00 Ondansetron HCl (Zofran Inj) 4 mg Q6H PRN IV NAUSEA AND/OR VOMITING Last administered on 09/09/16 22:03; Admin Dose 4 MG; Start 09/06/16 at 22:30 Morphine Sulfate (morphine) 2 mg Q4H PRN IV PAIN LEVEL 7-10 Last administered on 09/15/16 05:32; Admin Dose 2 MG; Start 09/06/16 at 22:30 Metoclopramide HCl (Reglan) 5 mg Q6H PRN IV RESIDUALS > 100; Start 09/10/16 at 19:00 Clonidine (Catapres) 0.1 mg Q6H PRN GTB ELEVATED SYSTOLIC BP Last administered on 09/15/16 07:04; Admin Dose 0.1 MG; Start 09/13/16 at 23:00 Hydralazine HCl (Apresoline) 10 mg Q6H PRN IV ELEVATED SYSTOLIC BP Last administered on 09/15/16 02:08; Admin Dose 10 MG; Start 09/15/16 at 01:50 ARUN DIANA NP Sep 15, 2016 20:10
[2016-09-16] VITALS (26 sets, daily range): BP systolic 98–163; BP diastolic 48–83; PULSE 78–128; RESP 17–23
[2016-09-16] MEDS: morphine 2 MG INJ IV PRN ×2 (05:29→20:19)
[2016-09-16] MEDS: LANSOPRAZOLE 30 MG CAP GTB SCH ×2 (06:35→18:06)
[2016-09-16] MEDS: SEVELAMER CARBONATE 2.4 GM PKT GTB SCH ×3 (07:49→18:06)
[2016-09-16] MEDS: CALCITRIOL 0.25 MCG CAP GTB SCH (09:03)
[2016-09-16] MEDS: FAMOTIDINE 20 MG TAB GTB SCH (09:03)
[2016-09-16] MEDS: CHLORHEXIDINE GLUCONATE 15 ML UD CUP MM SCH ×2 (09:03→20:15)
[2016-09-16] MEDS: ASCORBIC ACID 500 MG TAB GTB SCH ×2 (09:03→20:15)
[2016-09-16] MEDS: SUCRALFATE (100 MG/ML) 10ML CUP GTB SCH ×2 (09:03→20:15)
[2016-09-16] MEDS: ZINC SULFATE 220 MG CAP GTB SCH (09:03)
[2016-09-16] MEDS: LEVETIRACETAM (100 MG/ML) 5ML CUP GTB SCH ×2 (09:03→20:15)
[2016-09-16] MEDS: ALLOPURINOL 100 MG TAB GTB SCH (09:03)
--- NOTE | 2016-09-16 11:27 | PN ---
Date/Time of Note Date/Time of Note DATE: 09/16/16 TIME: 11:27 Assessment/Plan VTE Prophylaxis VTE Prophylaxis Intervention: other Lines/Catheters IV Catheter Type (from Nrs): dialysis /iv access Urinary Cath still in place: Yes Reason Cath still needed: skin wounds contaminated by urine Assessment/Plan Chief Complaint/Hosp Course 1. Severe anemia 2 GI bleed. Continue to monitor hemoglobin and hematocrit. Dr. Singh is following in gastroenterology consultation. 2. Hypovolemic shock, resolving. continue IV fluids. 3. Acute kidney failure on chronic kidney disease. continue to monitor BUN and creatinine. Dr. Mk Purdy is following in nephrology consultation. Patient with worsening renal function. Hemodialysis will be started upon hemodialysis catheter placement. 4. Pancytopenia. 5. Ventilator-dependent respiratory failure. 6. Possible healthcare-acquired pneumonia. Dr. Aragon is following in pulmonology consultation. Continue ventilator support, bronchodilators. The patient will continue broad spectrum antibiotics for possible pneumonia. 7. Dysphagia with PEG. 8. History of seizure disorder. Continue patient on Keppra. 9. Diastolic dysfunction congestive heart failure with preserved ejection fraction of 60%. 10. Possible sepsis. Dr. Guy is following patient in infectious disease consultation. 11. Status post cerebrovascular accident, status post craniotomy. 12. Mental retardation. Problems: Subjective 24 Hr Interval Summary Free Text/Dictation Patient has no complaints Exam/Review of Systems Vital Signs Vitals Vital Signs Date Time Temp Pulse Resp B/P Pulse Ox O2 Delivery O2 Flow Rate FiO2 09/16/16 11:26 98.2 108 23 130/68 97 09/16/16 10:01 35 09/15/16 04:00 Mechanical Ventilator Intake and Output 09/15/16 09/15/16 09/16/16 15:00 23:00 07:00 Intake Total 80 ml 800 ml 600 ml Output Total 2600 ml 400 ml Balance 80 ml -1800 ml 200 ml Exam Constitutional: well developed Head: atraumatic, normocephalic Neck: supple Respiratory: diminished breath sounds Cardiovascular: regular rate and rhythm Gastrointestinal: non-tender, soft Results Result Diagram: 09/15/16 0645 09/15/16 0645 Medications Medications Current Medications Acetaminophen (Tylenol Liquid) 640 mg Q6H PRN GTB PAIN OR TEMP ABOVE 38C; Start 09/06/16 at 22:30 Allopurinol (Zyloprim) 200 mg DAILY GTB Last administered on 09/16/16 09:03; Admin Dose 200 MG; Start 09/07/16 at 09:00 Ascorbic Acid (Vitamin C) 500 mg BID GTB Last administered on 09/16/16 09:03; Admin Dose 500 MG; Start 09/07/16 at 09:00 Calcitriol (Rocaltrol) 0.25 mcg DAILY GTB Last administered on 09/16/16 09:03 ; Admin Dose 0.25 MCG; Start 09/07/16 at 09:00 Chlorhexidine Gluconate (Peridex) 15 ml BID MM Last administered on 09/16/16 09:03; Admin Dose 15 ML; Start 09/07/16 at 09:00 Famotidine (Pepcid) 40 mg DAILY GTB Last administered on 09/16/16 09:03; Admin Dose 40 MG; Start 09/07/16 at 09:00 Lansoprazole (Prevacid) 30 mg BID@18 GTB Last administered on 09/16/16 06: 35; Admin Dose 30 MG; Start 09/07/16 at 06:00 Levetiracetam (Keppra Liquid) 500 mg BID GTB Last administered on 09/16/16 09: 03; Admin Dose 500 MG; Start 09/07/16 at 09:00 Metoclopramide HCl (Reglan) 5 mg Q8H PRN GTB NAUSEA AND/OR VOMITING; Start 09/06 at 22:30 Sucralfate (Carafate Susp) 1 gm BID GTB Last administered on 09/16/16 09:03; Admin Dose 1 GM; Start 09/07/16 at 09:00 Zinc Sulfate (Zinc Sulfate) 220 mg DAILY GTB Last administered on 09/16/16 09: 03; Admin Dose 220 MG; Start 09/07/16 at 09:00 Ondansetron HCl (Zofran Inj) 4 mg Q6H PRN IV NAUSEA AND/OR VOMITING Last administered on 09/09/16 22:03; Admin Dose 4 MG; Start 09/06/16 at 22:30 Morphine Sulfate (morphine) 2 mg Q4H PRN IV PAIN LEVEL 7-10 Last administered on 09/16/16 05:29; Admin Dose 2 MG; Start 09/06/16 at 22:30 Metoclopramide HCl (Reglan) 5 mg Q6H PRN IV RESIDUALS > 100; Start 09/10/16 at 19:00 Clonidine (Catapres) 0.1 mg Q6H PRN GTB ELEVATED SYSTOLIC BP Last administered on 09/15/16 07:04; Admin Dose 0.1 MG; Start 09/13/16 at 23:00 Hydralazine HCl (Apresoline) 10 mg Q6H PRN IV ELEVATED SYSTOLIC BP Last administered on 09/15/16 02:08; Admin Dose 10 MG; Start 09/15/16 at 01:50 TAI PERRIN Sep 16, 2016 11:27
--- NOTE | 2016-09-16 13:17 | PN ---
DATE: 09/16/2016 SUBJECTIVE: The patient is continuous ventilator support through tracheostomy. eye opening, but he does not follow, but his breathing appears unlabored. OBJECTIVE: VITAL SIGNS: Stable. Temperature 97.7. Blood pressure is 124/74, pulse rate is 98, respirations 2 0, pulse oximetry 98% saturation. According to nursing staff, the patient had dialysis yesterday, and he is also supposed to have dial ysis today. NECK: Tracheostomy secretions are clear. No bleeding is seen. HEART: Regular rhythm. CHEST: Breath sounds are diminished in both the lower lung chadwick, otherwise clear. ABDOMEN: Soft, not distended. He is tolerating gastrostomy tube feedings. EXTREMITIES: Show slight edema, and spastic in all the extremities. LABORATORY DATA: There are no lab test results are available today. IMPRESSION: 1. Sepsis syndrome, improving. 2. Chronic respiratory failure, ventilator dependent. 3. Acute renal failure. 4. Questionable pneumonia. 5. History of seizure disorder. 6. Chronic encephalopathy. 7. Pancytopenia. PLAN: 1. Continue long-term ventilator support. 2. Continue dialysis as per the tube depatcher. 3. Continue hydration along with the tube feedings. 4. Continue supportive therapy. The patient has been off antibiotics per infectious disease. Will closely observe. Dictated By: VEENA STREETER MD, SR/NIKOLAI Conf#: [id number] DID#: [id number]
--- NOTE | 2016-09-16 18:40 | CONS ---
Date/Time of Note Date/Time of Note DATE: 09/16/16 TIME: 18:39 Assessment/Plan Assessment/Plan Chief Complaint/Hosp Course SUBJECTIVE: No acute changes overnight per discussion with staff, nonverbal, lying comfortably in bed. Afebrile MICROBIOLOGY: Sputum culture on admission grew Klebsiella and achromobacter species. Stool for C. diff negative. Urine culture negative. INDWELLINGS: Trach, PEG, Brar, left IJ HD cath. PHYSICAL EXAMINATION: GENERAL: This is a fragile, chronically ill-appearing, middle-aged white man who is nonverbal, noncommunicative, lying comfortably in bed. HEENT: Head atraumatic, normocephalic. Sclerae anicteric. Buccal mucosa dry. NECK: Supple. Tracheostomy present. CHEST: Rise symmetrical. Breath sounds diminished to bases. HEART: S1, S2. ABDOMEN: Soft. Bowel tones hypoactive. EXTREMITIES: Contractured with multiple decubiti. ASSESSMENT: 1. Status post septic shock. 2. Multiple decubitus 3. Chronic respiratory failure. 4. Anemia. 5. Seizure disorder. 6. Chronic kidney disease. 7. ALLERGY TO ZITHROMAX, ZOSYN AND ERYTHROMYCIN. PLAN: The patient remains stable. Off abx, no fevers, continue local wound care. Vent per pulmonary DW staff Problems: Consultation Date/Type/Reason Admit Date/Time Sep 06, 2016 at 22:27 Initial Consult Date 09/07/16 Type of Consultation: ID Referring Provider: FREDDY COELLO MD Exam/Review of Systems Vital Signs Vitals Vital Signs Date Time Temp Pulse Resp B/P Pulse Ox O2 Delivery O2 Flow Rate FiO2 09/16/16 17:29 115 09/16/16 16:55 22 97 35 09/16/16 15:29 98.4 103/53 09/15/16 04:00 Mechanical Ventilator Intake and Output 09/15/16 09/15/16 09/16/16 15:00 23:00 07:00 Intake Total 80 ml 800 ml 600 ml Output Total 2600 ml 400 ml Balance 80 ml -1800 ml 200 ml Results Result Diagram: 09/15/16 0645 09/15/16 0645 Medications Medications Current Medications Acetaminophen (Tylenol Liquid) 640 mg Q6H PRN GTB PAIN OR TEMP ABOVE 38C; Start 09/06/16 at 22:30 Allopurinol (Zyloprim) 200 mg DAILY GTB Last administered on 09/16/16 09:03; Admin Dose 200 MG; Start 09/07/16 at 09:00 Ascorbic Acid (Vitamin C) 500 mg BID GTB Last administered on 09/16/16 09:03; Admin Dose 500 MG; Start 09/07/16 at 09:00 Calcitriol (Rocaltrol) 0.25 mcg DAILY GTB Last administered on 09/16/16 09:03 ; Admin Dose 0.25 MCG; Start 09/07/16 at 09:00 Chlorhexidine Gluconate (Peridex) 15 ml BID MM Last administered on 09/16/16 09:03; Admin Dose 15 ML; Start 09/07/16 at 09:00 Famotidine (Pepcid) 40 mg DAILY GTB Last administered on 09/16/16 09:03; Admin Dose 40 MG; Start 09/07/16 at 09:00 Lansoprazole (Prevacid) 30 mg BID@18 GTB Last administered on 09/16/16 18: 06; Admin Dose 30 MG; Start 09/07/16 at 06:00 Levetiracetam (Keppra Liquid) 500 mg BID GTB Last administered on 09/16/16 09: 03; Admin Dose 500 MG; Start 09/07/16 at 09:00 Metoclopramide HCl (Reglan) 5 mg Q8H PRN GTB NAUSEA AND/OR VOMITING; Start 09/06 at 22:30 Sucralfate (Carafate Susp) 1 gm BID GTB Last administered on 09/16/16 09:03; Admin Dose 1 GM; Start 09/07/16 at 09:00 Zinc Sulfate (Zinc Sulfate) 220 mg DAILY GTB Last administered on 09/16/16 09: 03; Admin Dose 220 MG; Start 09/07/16 at 09:00 Ondansetron HCl (Zofran Inj) 4 mg Q6H PRN IV NAUSEA AND/OR VOMITING Last administered on 09/09/16 22:03; Admin Dose 4 MG; Start 09/06/16 at 22:30 Morphine Sulfate (morphine) 2 mg Q4H PRN IV PAIN LEVEL 7-10 Last administered on 09/16/16 05:29; Admin Dose 2 MG; Start 09/06/16 at 22:30 Metoclopramide HCl (Reglan) 5 mg Q6H PRN IV RESIDUALS > 100; Start 09/10/16 at 19:00 Clonidine (Catapres) 0.1 mg Q6H PRN GTB ELEVATED SYSTOLIC BP Last administered on 09/15/16 07:04; Admin Dose 0.1 MG; Start 09/13/16 at 23:00 Hydralazine HCl (Apresoline) 10 mg Q6H PRN IV ELEVATED SYSTOLIC BP Last administered on 09/15/16 02:08; Admin Dose 10 MG; Start 09/15/16 at 01:50 ARUN DIANA NP Sep 16, 2016 18:40
--- NOTE | 2016-09-16 18:59 | CONS ---
Date/Time of Note Date/Time of Note DATE: 09/16/16 TIME: 18:55 Assessment/Plan Assessment/Plan Additional Assessment/Plan 1. Acute kidney injury on possible chronic kidney disease unknown stage secondary to severe prerenal azotemia causing ischemic acute tubular necrosis in the setting of severe anemia. 2. Severe anemia,s/p PRBC 3. Chronic respiratory failure, status post tracheostomy, on vent. 4. Pancytopenia. 5. History of a seizure disorder. 6. Possible concern about septic shock. PLAN: s/p PRBC- now Hb 8.3 Us showed kidneys are small in size and increased echogenicity c/w chronic medical renal disease BUN/Cr still high with labile BP , urine output 500 cc in last 24 hr- BUN continues to be high, plan for initiation of HD- previously sister agreed for HD initiation started on HD through Dewey HD catheter, HD has been cut short due to tachycardia and agitation Blood transfusion plan as per GI and Primary care will follow up Total Time spent in Patient follow up assessment, Updating patient/Family and Communicating with Nursing staff is >45 minutes Consultation Date/Type/Reason Admit Date/Time Sep 06, 2016 at 22:27 Initial Consult Date Aug Type of Consultation: NEPHROLOGY Reason for Consultation MICHELLE with severe uremia, sepsis GI bleeding Referring Provider: FREDDY COELLO MD 24 HR Interval Summary Free Text/Dictation started on HD yesterday due to Uremia, Today Had a Agitation with Tachycardid during HD , afebrile, BP stable Exam/Review of Systems Vital Signs Vitals Vital Signs Date Time Temp Pulse Resp B/P Pulse Ox O2 Delivery O2 Flow Rate FiO2 09/16/16 17:29 115 09/16/16 16:55 22 97 35 09/16/16 15:29 98.4 103/53 09/15/16 04:00 Mechanical Ventilator Intake and Output 09/15/16 09/15/16 09/16/16 15:00 23:00 07:00 Intake Total 80 ml 800 ml 600 ml Output Total 2600 ml 400 ml Balance 80 ml -1800 ml 200 ml Exam NECK: Tracheal secretions are clear. No bleeding is seen. HEART: Regular rhythm. CHEST: Breath sounds are heard bilaterally, diminished in both the lower lung [place] with a few intermittent rales and rhonchi. ABDOMEN: Soft. He is tolerating gastrostomy tube feedings. No vomiting has been reported. No distention is seen. EXTREMITIES: Show muscle wasting and spasticity. + dewey Catheter Results Result Diagram: 09/15/1664409/15/16644 Medications Medications Current Medications Acetaminophen (Tylenol Liquid) 640 mg Q6H PRN GTB PAIN OR TEMP ABOVE 38C; Start 09/06/16 at 22:30 Allopurinol (Zyloprim) 200 mg DAILY GTB Last administered on 09/16/16 09:03; Admin Dose 200 MG; Start 09/07/16 at 09:00 Ascorbic Acid (Vitamin C) 500 mg BID GTB Last administered on 09/16/16 09:03; Admin Dose 500 MG; Start 09/07/16 at 09:00 Calcitriol (Rocaltrol) 0.25 mcg DAILY GTB Last administered on 09/16/16 09:03 ; Admin Dose 0.25 MCG; Start 09/07/16 at 09:00 Chlorhexidine Gluconate (Peridex) 15 ml BID MM Last administered on 09/16/16 09:03; Admin Dose 15 ML; Start 09/07/16 at 09:00 Famotidine (Pepcid) 40 mg DAILY GTB Last administered on 09/16/16 09:03; Admin Dose 40 MG; Start 09/07/16 at 09:00 Lansoprazole (Prevacid) 30 mg BID@,18 GTB Last administered on 09/16/16 18: 06; Admin Dose 30 MG; Start 09/07/16 at 06:00 Levetiracetam (Keppra Liquid) 500 mg BID GTB Last administered on 09/16/16 09: 03; Admin Dose 500 MG; Start 09/07/16 at 09:00 Metoclopramide HCl (Reglan) 5 mg Q8H PRN GTB NAUSEA AND/OR VOMITING; Start 09/06 at 22:30 Sucralfate (Carafate Susp) 1 gm BID GTB Last administered on 09/16/16 09:03; Admin Dose 1 GM; Start 09/07/16 at 09:00 Zinc Sulfate (Zinc Sulfate) 220 mg DAILY GTB Last administered on 09/16/16 09: 03; Admin Dose 220 MG; Start 09/07/16 at 09:00 Ondansetron HCl (Zofran Inj) 4 mg Q6H PRN IV NAUSEA AND/OR VOMITING Last administered on 09/09/16 22:03; Admin Dose 4 MG; Start 09/06/16 at 22:30 Morphine Sulfate (morphine) 2 mg Q4H PRN IV PAIN LEVEL 7-10 Last administered on 09/16/16 05:29; Admin Dose 2 MG; Start 09/06/16 at 22:30 Metoclopramide HCl (Reglan) 5 mg Q6H PRN IV RESIDUALS > 100; Start 09/10/16 at 19:00 Clonidine (Catapres) 0.1 mg Q6H PRN GTB ELEVATED SYSTOLIC BP Last administered on 09/15/16 07:04; Admin Dose 0.1 MG; Start 09/13/16 at 23:00 Hydralazine HCl (Apresoline) 10 mg Q6H PRN IV ELEVATED SYSTOLIC BP Last administered on 09/15/16 02:08; Admin Dose 10 MG; Start 09/15/16 at 01:50 KENIA TURCIOS MD Sep 16, 2016 18:59
[2016-09-17] VITALS (28 sets, daily range): BP systolic 111–157; BP diastolic 56–72; PULSE 105–120; RESP 14–20
[2016-09-17] MEDS: ONDANSETRON 4 MG INJ IV PRN (00:52)
[2016-09-17] MEDS: LANSOPRAZOLE 30 MG CAP GTB SCH ×2 (05:08→17:58)
[2016-09-17] MEDS: SEVELAMER CARBONATE 2.4 GM PKT GTB SCH ×3 (07:46→17:58)
[2016-09-17] MEDS: CHLORHEXIDINE GLUCONATE 15 ML UD CUP MM SCH ×2 (09:23→20:59)
[2016-09-17] MEDS: ALLOPURINOL 100 MG TAB GTB SCH (09:23)
[2016-09-17] MEDS: LEVETIRACETAM (100 MG/ML) 5ML CUP GTB SCH ×2 (09:23→20:59)
[2016-09-17] MEDS: SUCRALFATE (100 MG/ML) 10ML CUP GTB SCH ×2 (09:23→20:59)
[2016-09-17] MEDS: FAMOTIDINE 20 MG TAB GTB SCH (09:24)
[2016-09-17] MEDS: ZINC SULFATE 220 MG CAP GTB SCH (09:24)
[2016-09-17] MEDS: ASCORBIC ACID 500 MG TAB GTB SCH ×2 (09:24→20:59)
[2016-09-17] MEDS: CALCITRIOL 0.25 MCG CAP GTB SCH (09:24)
--- NOTE | 2016-09-17 14:49 | PN ---
DATE: 09/17/2016 SUBJECTIVE: The patient is breathing comfortably with the ventilator support. He shows minimal eye opening, but does not follow. OBJECTIVE: VITAL SIGNS: Stable. Temperature is 98.9, blood pressure 120/56, pulse rate is 105, respirations 2 0, pulse oximetry 95% saturation. NECK: Tracheal secretions are clear. No bleeding is seen. HEART: Regular rhythm. CHEST: Breath sounds are heard bilaterally, somewhat diminished both the lower lung ch[place]. Otherw ise clear. ABDOMEN: Soft, not distended, tolerating gastrostomy tube feedings. Bowel sounds normally heard. EXTREMITIES: Show no edema. Spastic in all the extremities. IMPRESSION: 1. Sepsis syndrome, improving. 2. Chronic respiratory failure, ventilator dependent. 3. Acute renal failure. 4. Questionable pneumonia. 5. History of seizure disorder. 6. Chronic encephalopathy. 7. Pancytopenia. PLAN: 1. Continue long-term ventilator support. 2. Continue dialysis as per controls operator molded goods. According to nursing staff, he had dialysis yesterday an d day before yesterday. 3. Continue hydration with the tube feedings. 4. Continue supportive care. Dictated By: VEENA STREETER MD SR/NTS Conf#: [id number] DID#: [id number]
--- NOTE | 2016-09-17 17:57 | PN ---
Date/Time of Note Date/Time of Note DATE: 09/17/16 TIME: 17:54 Assessment/Plan VTE Prophylaxis VTE Prophylaxis Intervention: SCD's Lines/Catheters [facility] Type [facility] iv /dialysis access Urinary Cath still in place: Yes Reason Cath still needed: urinary retention Assessment/Plan Chief Complaint/Hosp Course ASSESSMENT AND PLAN: 1. Severe anemia 2 GI bleed. Continue to monitor hemoglobin and hematocrit. Dr. Singh is following in gastroenterology consultation. 2. Hypovolemic shock, resolved. continue IV fluids. 3. Acute kidney failure on chronic kidney disease. continue to monitor BUN and creatinine. Dr. Mk Purdy is following in nephrology consultation. Patient with worsening renal function. Started on Hemodialysis. 4. Pancytopenia. 5. Ventilator-dependent respiratory failure. 6. Possible healthcare-acquired pneumonia. Dr. Aragon is following in pulmonology consultation. Continue ventilator support, bronchodilators. Status post treatment. 7. Dysphagia with PEG. 8. History of seizure disorder. Continue patient on Keppra. 9. Diastolic dysfunction congestive heart failure with preserved ejection fraction of 60%. 10. S/p sepsis. Dr. Guy is following patient in infectious disease consultation. 11. Status post cerebrovascular accident, status post craniotomy. 12. Mental retardation. Continue Protonix for peptic ulcer disease prophylaxis. Further recommendations based on clinical course. Plan of care discussed with Dr. Mcelroy. Problems: Subjective 24 Hr Interval Summary Free Text/Dictation Patient is tachycardic, no fever, tolerates G-tube feeding well. Exam/Review of Systems Vital Signs Vitals Vital Signs Date Time Temp Pulse Resp B/P Pulse Ox O2 Delivery O2 Flow Rate FiO2 09/17/16 17:05 115 15 99 35 09/17/16 15:07 99.0 126/62 09/15/16 04:00 Mechanical Ventilator Intake and Output 09/16/16 09/16/16 09/17/16 15:00 23:00 07:00 Intake Total 160 ml 740 ml 600 ml Output Total 2400 ml 250 ml Balance 160 ml -1660 ml 350 ml Exam GENERAL: Well-developed, frail, elderly male, on vent support via tracheostomy HEENT: Head is atraumatic. Pupils are equal and reactive to light and accommodation. Oral mucosa is dry. NECK: Supple. There is a tracheostomy at the base of the neck. CHEST: Lungs are diminished bilaterally. CARDIOVASCULAR: Normal S1, S2. No murmurs, gallops, clicks, rubs noted. ABDOMEN: Abdomen is round, soft, nondistended, nontender. Bowel sounds present. The patient has a G-tube. SKIN: No petechiae present. Patient has multiple decubitus ulcers. Please see wound care notes. EXTREMITIES: Contractures with muscle atrophy. NEUROLOGIC: The patient is awake, alert, opens eyes to commands, nonverbal, does not follow any commands. Results Result Diagram: 09/15/1664409/15/16644 Medications Medications Current Medications Acetaminophen (Tylenol Liquid) 640 mg Q6H PRN GTB PAIN OR TEMP ABOVE 38C; Start 09/06/16 at 22:30 Allopurinol (Zyloprim) 200 mg DAILY GTB Last administered on 09/17/16 09:23; Admin Dose 200 MG; Start 09/07/16 at 09:00 Ascorbic Acid (Vitamin C) 500 mg BID GTB Last administered on 09/17/16 09:24; Admin Dose 500 MG; Start 09/07/16 at 09:00 Calcitriol (Rocaltrol) 0.25 mcg DAILY GTB Last administered on 09/17/16 09:24 ; Admin Dose 0.25 MCG; Start 09/07/16 at 09:00 Chlorhexidine Gluconate (Peridex) 15 ml BID MM Last administered on 09/17/16 09:23; Admin Dose 15 ML; Start 09/07/16 at 09:00 Famotidine (Pepcid) 40 mg DAILY GTB Last administered on 09/17/16 09:24; Admin Dose 40 MG; Start 09/07/16 at 09:00 Lansoprazole (Prevacid) 30 mg BID@18 GTB Last administered on 09/17/16 05: 08; Admin Dose 30 MG; Start 09/07/16 at 06:00 Levetiracetam (Keppra Liquid) 500 mg BID GTB Last administered on 09/17/16 09: 23; Admin Dose 500 MG; Start 09/07/16 at 09:00 Metoclopramide HCl (Reglan) 5 mg Q8H PRN GTB NAUSEA AND/OR VOMITING; Start 09/06 at 22:30 Sucralfate (Carafate Susp) 1 gm BID GTB Last administered on 09/17/16 09:23; Admin Dose 1 GM; Start 09/07/16 at 09:00 Zinc Sulfate (Zinc Sulfate) 220 mg DAILY GTB Last administered on 09/17/16 09: 24; Admin Dose 220 MG; Start 09/07/16 at 09:00 Ondansetron HCl (Zofran Inj) 4 mg Q6H PRN IV NAUSEA AND/OR VOMITING Last administered on 09/17/16 00:52; Admin Dose 4 MG; Start 09/06/16 at 22:30 Morphine Sulfate (morphine) 2 mg Q4H PRN IV PAIN LEVEL 7-10 Last administered on 09/16/16 20:19; Admin Dose 2 MG; Start 09/06/16 at 22:30 Metoclopramide HCl (Reglan) 5 mg Q6H PRN IV RESIDUALS > 100; Start 09/10/16 at 19:00 Clonidine (Catapres) 0.1 mg Q6H PRN GTB ELEVATED SYSTOLIC BP Last administered on 09/15/16 07:04; Admin Dose 0.1 MG; Start 09/13/16 at 23:00 Hydralazine HCl (Apresoline) 10 mg Q6H PRN IV ELEVATED SYSTOLIC BP Last administered on 09/15/16 02:08; Admin Dose 10 MG; Start 09/15/16 at 01:50 QUIN ORTIZ Sep 17, 2016 17:57
--- NOTE | 2016-09-17 22:45 | CONS ---
Date/Time of Note Date/Time of Note DATE: 09/17/16 TIME: 22:43 Assessment/Plan Assessment/Plan Additional Assessment/Plan 1. Acute kidney injury on possible chronic kidney disease unknown stage secondary to severe prerenal azotemia causing ischemic acute tubular necrosis in the setting of severe anemia. 2. Severe anemia,s/p PRBC 3. Chronic respiratory failure, status post tracheostomy, on vent. 4. Pancytopenia. 5. History of a seizure disorder. 6. Possible concern about septic shock. PLAN: s/p HD yesterday Us showed kidneys are small in size and increased echogenicity c/w chronic medical renal disease plan for HD tomorrow Total Time spent in Patient follow up assessment, Updating patient/Family and Communicating with Nursing staff is >45 minutes Consultation Date/Type/Reason Admit Date/Time Sep 06, 2016 at 22:27 Initial Consult Date Aug Type of Consultation: NEPHROLOGY Reason for Consultation MICHELLE with uremic symptoms, GI bleeding Referring Provider: FREDDY COELLO MD 24 HR Interval Summary Free Text/Dictation yesterday pt had a tachycardi and agitation with HD, BP stable Exam/Review of Systems Vital Signs Vitals Vital Signs Date Time Temp Pulse Resp B/P Pulse Ox O2 Delivery O2 Flow Rate FiO2 09/17/16 20:00 97.4 111 20 111/60 98 09/17/16 19:45 35 09/15/16 04:00 Mechanical Ventilator Intake and Output 09/16/16 09/16/16 09/17/16 15:00 23:00 07:00 Intake Total 160 ml 740 ml 600 ml Output Total 2400 ml 250 ml Balance 160 ml -1660 ml 350 ml Exam NECK: Tracheal secretions are clear. No bleeding is seen. HEART: Regular rhythm. CHEST: Breath sounds are heard bilaterally, diminished in both the lower lung [place] with a few intermittent rales and rhonchi. ABDOMEN: Soft. He is tolerating gastrostomy tube feedings. No vomiting has been reported. No distention is seen. EXTREMITIES: Show muscle wasting and spasticity. + litzy Catheter Results Result Diagram: 09/15/16 0645 09/15/16 0645 Medications Medications Current Medications Acetaminophen (Tylenol Liquid) 640 mg Q6H PRN GTB PAIN OR TEMP ABOVE 38C; Start 09/06/16 at 22:30 Allopurinol (Zyloprim) 200 mg DAILY GTB Last administered on 09/17/16 09:23; Admin Dose 200 MG; Start 09/07/16 at 09:00 Ascorbic Acid (Vitamin C) 500 mg BID GTB Last administered on 09/17/16 20:59; Admin Dose 500 MG; Start 09/07/16 at 09:00 Calcitriol (Rocaltrol) 0.25 mcg DAILY GTB Last administered on 09/17/16 09:24 ; Admin Dose 0.25 MCG; Start 09/07/16 at 09:00 Chlorhexidine Gluconate (Peridex) 15 ml BID MM Last administered on 09/17/16 20:59; Admin Dose 15 ML; Start 09/07/16 at 09:00 Famotidine (Pepcid) 40 mg DAILY GTB Last administered on 09/17/16 09:24; Admin Dose 40 MG; Start 09/07/16 at 09:00 Lansoprazole (Prevacid) 30 mg BID@18 GTB Last administered on 09/17/16 17: 58; Admin Dose 30 MG; Start 09/07/16 at 06:00 Levetiracetam (Keppra Liquid) 500 mg BID GTB Last administered on 09/17/16 20: 59; Admin Dose 500 MG; Start 09/07/16 at 09:00 Metoclopramide HCl (Reglan) 5 mg Q8H PRN GTB NAUSEA AND/OR VOMITING; Start 09/06 at 22:30 Sucralfate (Carafate Susp) 1 gm BID GTB Last administered on 09/17/16 20:59; Admin Dose 1 GM; Start 09/07/16 at 09:00 Ondansetron HCl (Zofran Inj) 4 mg Q6H PRN IV NAUSEA AND/OR VOMITING Last administered on 09/17/16 00:52; Admin Dose 4 MG; Start 09/06/16 at 22:30 Morphine Sulfate (morphine) 2 mg Q4H PRN IV PAIN LEVEL 7-10 Last administered on 09/16/16 20:19; Admin Dose 2 MG; Start 09/06/16 at 22:30 Metoclopramide HCl (Reglan) 5 mg Q6H PRN IV RESIDUALS > 100; Start 09/10/16 at 19:00 Clonidine (Catapres) 0.1 mg Q6H PRN GTB ELEVATED SYSTOLIC BP Last administered on 09/15/16 07:04; Admin Dose 0.1 MG; Start 09/13/16 at 23:00 Hydralazine HCl (Apresoline) 10 mg Q6H PRN IV ELEVATED SYSTOLIC BP Last administered on 09/15/16 02:08; Admin Dose 10 MG; Start 09/15/16 at 01:50 KENIA TURCIOS MD Sep 17, 2016 22:45
[2016-09-18] VITALS (34 sets, daily range): BP systolic 94–124; BP diastolic 40–71; PULSE 40–113; RESP 16–23
[2016-09-18] MEDS: LANSOPRAZOLE 30 MG CAP GTB SCH ×2 (05:12→17:38)
[2016-09-18 07:47] LABS: POTASSIUM 4.2 mmol/L (3.5-5.1)
[2016-09-18 07:50] LABS: CREATININE 2.26 mg/dl (0.61-1.24)
[2016-09-18 07:51] LABS: CALCIUM 8.1 mg/dl (8.4-10.2)
[2016-09-18] MEDS: SEVELAMER CARBONATE 2.4 GM PKT GTB SCH ×4 (07:55→17:38)
[2016-09-18] MEDS: ASCORBIC ACID 500 MG TAB GTB SCH ×3 (09:00→21:54)
[2016-09-18] MEDS: COLLAGENASE 30 GM TUBE TOP SCH (09:00)
[2016-09-18] MEDS: SUCRALFATE (100 MG/ML) 10ML CUP GTB SCH ×3 (09:00→21:54)
[2016-09-18] MEDS: LEVETIRACETAM (100 MG/ML) 5ML CUP GTB SCH ×3 (09:00→21:54)
[2016-09-18] MEDS: CHLORHEXIDINE GLUCONATE 15 ML UD CUP MM SCH ×2 (10:11→21:54)
[2016-09-18] MEDS: ALLOPURINOL 100 MG TAB GTB SCH (10:12)
[2016-09-18] MEDS: CALCITRIOL 0.25 MCG CAP GTB SCH (10:12)
[2016-09-18] MEDS: FAMOTIDINE 20 MG TAB GTB SCH (10:12)
--- NOTE | 2016-09-18 11:23 | CONS ---
Date/Time of Note Date/Time of Note DATE: 09/18/16 TIME: 11:22 Assessment/Plan Assessment/Plan Additional Assessment/Plan 1. Acute kidney injury on possible chronic kidney disease unknown stage secondary to severe prerenal azotemia causing ischemic acute tubular necrosis in the setting of severe anemia. 2. Severe anemia,s/p PRBC 3. Chronic respiratory failure, status post tracheostomy, on vent. 4. Pancytopenia. 5. History of a seizure disorder. 6. Possible concern about septic shock. PLAN: Us showed kidneys are small in size and increased echogenicity c/w chronic medical renal disease plan for HD today pt has litzy HD catheter Total Time spent in Patient follow up assessment, Updating patient/Family and Communicating with Nursing staff is >45 minutes Consultation Date/Type/Reason Admit Date/Time Sep 06, 2016 at 22:27 Initial Consult Date Aug Type of Consultation: NEPHROLOGY Reason for Consultation acute renal failure,with uremia Referring Provider: FREDDY COELLO MD Exam/Review of Systems Vital Signs Vitals Vital Signs Date Time Temp Pulse Resp B/P Pulse Ox O2 Delivery O2 Flow Rate FiO2 09/18/16 09:15 107 16 96 40 09/18/16 08:39 99.2 115/65 09/15/16 04:00 Mechanical Ventilator Intake and Output 09/17/16 09/17/16 09/18/16 15:00 23:00 07:00 Intake Total 180 ml 600 ml Output Total 300 ml Balance 180 ml 300 ml Exam NECK: Tracheal secretions are clear. No bleeding is seen. HEART: Regular rhythm. CHEST: Breath sounds are heard bilaterally, diminished in both the lower lung [place] with a few intermittent rales and rhonchi. ABDOMEN: Soft. He is tolerating gastrostomy tube feedings. No vomiting has been reported. No distention is seen. EXTREMITIES: Show muscle wasting and spasticity. + litzy Catheter Results Result Diagram: 09/15/16 0645 09/18/16 0725 Results 24 hrs Laboratory Tests Test 09/18/16 07:25 Anion Gap 12 Blood Urea Nitrogen 113 H Calcium Level 8.1 L Carbon Dioxide Level 26 Chloride Level 102 Creatinine 2.26 H Glucose Level 82 Potassium Level 4.2 Sodium Level 136 Medications Medications Current Medications Acetaminophen (Tylenol Liquid) 640 mg Q6H PRN GTB PAIN OR TEMP ABOVE 38C; Start 09/06/16 at 22:30 Allopurinol (Zyloprim) 200 mg DAILY GTB Last administered on 09/18/16 10:12; Admin Dose 200 MG; Start 09/07/16 at 09:00 Ascorbic Acid (Vitamin C) 500 mg BID GTB Last administered on 09/18/16 10:12; Admin Dose 500 MG; Start 09/07/16 at 09:00 Calcitriol (Rocaltrol) 0.25 mcg DAILY GTB Last administered on 09/18/16 10:12 ; Admin Dose 0.25 MCG; Start 09/07/16 at 09:00 Chlorhexidine Gluconate (Peridex) 15 ml BID MM Last administered on 09/18/16 10:11; Admin Dose 15 ML; Start 09/07/16 at 09:00 Famotidine (Pepcid) 40 mg DAILY GTB Last administered on 09/18/16 10:12; Admin Dose 40 MG; Start 09/07/16 at 09:00 Lansoprazole (Prevacid) 30 mg BID@ GTB Last administered on 09/18/16 05: 12; Admin Dose 30 MG; Start 09/07/16 at 06:00 Levetiracetam (Keppra Liquid) 500 mg BID GTB Last administered on 09/18/16 10: 11; Admin Dose 500 MG; Start 09/07/16 at 09:00 Metoclopramide HCl (Reglan) 5 mg Q8H PRN GTB NAUSEA AND/OR VOMITING; Start 09/06 at 22:30 Sucralfate (Carafate Susp) 1 gm BID GTB Last administered on 09/18/16 10:11; Admin Dose 1 GM; Start 09/07/16 at 09:00 Ondansetron HCl (Zofran Inj) 4 mg Q6H PRN IV NAUSEA AND/OR VOMITING Last administered on 09/17/16 00:52; Admin Dose 4 MG; Start 09/06/16 at 22:30 Morphine Sulfate (morphine) 2 mg Q4H PRN IV PAIN LEVEL 7-10 Last administered on 09/16/16 20:19; Admin Dose 2 MG; Start 09/06/16 at 22:30 Metoclopramide HCl (Reglan) 5 mg Q6H PRN IV RESIDUALS > 100; Start 09/10/16 at 19:00 Clonidine (Catapres) 0.1 mg Q6H PRN GTB ELEVATED SYSTOLIC BP Last administered on 09/15/16 07:04; Admin Dose 0.1 MG; Start 09/13/16 at 23:00 Hydralazine HCl (Apresoline) 10 mg Q6H PRN IV ELEVATED SYSTOLIC BP Last administered on 09/15/16 02:08; Admin Dose 10 MG; Start 09/15/16 at 01:50 Collagenase (Santyl) 1 applic DAILY TOP ; Start 09/18/16 at 09:00 KENIA TURCIOS MD Sep 18, 2016 11:23
--- NOTE | 2016-09-18 11:35 | PN ---
DATE: 09/11/2016 SUBJECTIVE: The patient is breathing comfortably with the ventilator support. His general conditio n is same. Most of the time, he is noncognitive except for minimal eye opening, but he does not fol low when spoken to. VITAL SIGNS: Show temperature 99.2, blood pressure 115/65, pulse rate of 106, respirations are 20, pulse oximetry showing 98% saturation with 30% inhaled oxygen concentration. NECK: Tracheal secretions are clear. No bleeding is seen. HEART: Regular rhythm. CHEST: Breath sounds are heard bilaterally, diminished in both the lower lung [place] with a few int ermittent rales and rhonchi heard occasionally. ABDOMEN: Soft, not distended. Bowel sounds are present. EXTREMITIES: Show slight edema, spastic in all the extremities. LABORATORY DATA: Show a slight improvement in renal status after initiation of dialysis. BUN is 1 13, creatinine is 2.26. Sodium is 136, potassium 4.2, bicarbonate is 26, glucose is 82. IMPRESSION: 1. Sepsis syndrome, improving. 2. Chronic respiratory failure, ventilator dependent. 3. Acute renal failure, improving with dialysis. 4. Questionable pneumonia. 5. History of seizure disorder. 6. Chronic encephalopathy. 7. Pancytopenia. RECOMMENDATIONS: 1. Continue long-term ventilator support. 2. Continue dialysis as per rubber off. 3. Continue hydration. 4. Continue supportive care. 5. Bronchodilator inhalation therapy to be continued. Dictated By: VEENA STREETER MD SR/NTS Conf#: [id number] DID#: [id number]
[2016-09-18 12:10] LABS: BASOPHILS % 0.4 % (0.0-2.0); EOSINOPHILS % 0.3 % (0.0-7.0); HEMATOCRIT 19.9 % (42.0-52.0); LYMPHOCYTES # 0.2 10^3/ul (0.8-2.9); LYMPHOCYTES % 5.4 % (15.0-51.0); MEAN CORPUSCULAR HEMOGLOBIN 30.8 pg (29.0-33.0); MEAN CORPUSCULAR HGB CONC 33.3 g/dl (32.0-37.0); MEAN CORPUSCULAR VOLUME 92.5 fl (82.0-101.0); MEAN PLATELET VOLUME 9.7 fl (7.4-10.4); MONOCYTE # 0.6 10^3/ul (0.3-0.9); MONOCYTES % 14.5 % (0.0-11.0); NEUTROPHIL # 3.5 10^3/ul (1.6-7.5); NEUTROPHILS % 79.4 % (39.0-77.0); RED BLOOD COUNT 2.15 10^6/ul (4.70-6.10); RED CELL DISTRIBUTION WIDTH 15.7 % (11.5-14.5); UNCORRECTED WBC 4.4 10^3/ul (4.8-10.8); WHITE BLOOD COUNT 4.4 10^3/ul (4.8-10.8)
[2016-09-18 12:19] LABS: CONDITION 1; LH ANALYZER COMMENTS 1
[2016-09-18 12:22] LABS: PLATELET COUNT 48 10^3/UL (140-440)
[2016-09-18 12:24] LABS: HEMOGLOBIN 6.6 g/dl (14.0-18.0)
[2016-09-18] MEDS ORDERED: SOD CHLORIDE 0.9% 250 ML IV* ONE (12:49)
--- NOTE | 2016-09-18 16:57 | PN ---
Date/Time of Note Date/Time of Note DATE: 09/18/16 TIME: 16:55 Assessment/Plan VTE Prophylaxis VTE Prophylaxis Intervention: SCD's Lines/Catheters IV Catheter Type (from [facility]): litzy cath with pigtail Urinary Cath still in place: Yes Reason Cath still needed: urinary retention Assessment/Plan Chief Complaint/Hosp Course ASSESSMENT AND PLAN: 1. Severe anemia 2 GI bleed. Continue to monitor hemoglobin and hematocrit. Dr. Singh is following in gastroenterology consultation. 2. Hypovolemic shock, resolved. continue IV fluids. 3. Acute kidney failure on chronic kidney disease. continue to monitor BUN and creatinine. Dr. Mk Purdy is following in nephrology consultation. Patient with worsening renal function. Started on Hemodialysis. 4. Pancytopenia. 5. Ventilator-dependent respiratory failure. 6. Possible healthcare-acquired pneumonia. Dr. Aragon is following in pulmonology consultation. Continue ventilator support, bronchodilators. Status post treatment. 7. Dysphagia with PEG. 8. History of seizure disorder. Continue patient on Keppra. 9. Diastolic dysfunction congestive heart failure with preserved ejection fraction of 60%. 10. S/p sepsis. Dr. Guy is following patient in infectious disease consultation. 11. Status post cerebrovascular accident, status post craniotomy. 12. Mental retardation. Continue Protonix for peptic ulcer disease prophylaxis. Further recommendations based on clinical course. Plan of care discussed with Dr. Mcelroy. Problems: Subjective 24 Hr Interval Summary Free Text/Dictation Patient is s/p HD, low grade fever today, Gt malfunction per RN, dr Singh will see pt in GI consult. Patient had drop in hgb, s/p blood transfusion with HD today. Exam/Review of Systems Vital Signs Vitals Vital Signs Date Time Temp Pulse Resp B/P Pulse Ox O2 Delivery O2 Flow Rate FiO2 09/18/16 16:37 99 09/18/16 15:46 18 09/18/16 15:10 100 50 09/18/16 15:04 98.4 103/63 09/15/16 04:00 Mechanical Ventilator Intake and Output 09/17/16 09/17/16 09/18/16 15:00 23:00 07:00 Intake Total 180 ml 600 ml Output Total 300 ml Balance 180 ml 300 ml Exam Constitutional: alert, well developed Head: atraumatic, normocephalic Eyes: nl conjunctiva ENMT: nl external ears & nose Neck: jvd, supple Respiratory: clear to auscultation Cardiovascular: regular rate and rhythm Gastrointestinal: nl liver, spleen, soft Genitourinary - Male: nl penis, other ( Brar catheter ) Musculoskeletal: nl extremities to inspection, Extremities: normal pulses, bilateral LE s/p vascular intervention Results Result Diagram: 09/18/16 1155 09/18/16 0725 Results 24 hrs Laboratory Tests Test 09/18/16 07:25 09/18/16 11:55 Anion Gap 12 Blood Urea Nitrogen 113 H Calcium Level 8.1 L Carbon Dioxide Level 26 Chloride Level 102 Creatinine 2.26 H Glucose Level 82 Potassium Level 4.2 Sodium Level 136 Basophils # 0.0 Basophils % 0.4 Blood Morphology Comment Eosinophils # 0.0 Eosinophils % 0.3 Hematocrit 19.9 L Hemoglobin 6.6 #*L Lymphocytes # 0.2 L Lymphocytes % 5.4 L Mean Corpuscular Hemoglobin 30.8 Mean Corpuscular Hemoglobin Concent 33.3 Mean Corpuscular Volume 92.5 Mean Platelet Volume 9.7 Monocytes # 0.6 Monocytes % 14.5 H Neutrophils # 3.5 Neutrophils % 79.4 H Nucleated Red Blood Cells # 0.0 Nucleated Red Blood Cells % 0.0 Platelet Count 48 #L Red Blood Count 2.15 #L Red Cell Distribution Width 15.7 H White Blood Count 4.4 L Medications Medications Current Medications Acetaminophen (Tylenol Liquid) 640 mg Q6H PRN GTB PAIN OR TEMP ABOVE 38C; Start 09/06/16 at 22:30 Allopurinol (Zyloprim) 200 mg DAILY GTB Last administered on 09/18/16 10:12; Admin Dose 200 MG; Start 09/07/16 at 09:00 Ascorbic Acid (Vitamin C) 500 mg BID GTB Last administered on 09/17/16 20:59; Admin Dose 500 MG; Start 09/07/16 at 09:00 Calcitriol (Rocaltrol) 0.25 mcg DAILY GTB Last administered on 09/18/16 10:12 ; Admin Dose 0.25 MCG; Start 09/07/16 at 09:00 Chlorhexidine Gluconate (Peridex) 15 ml BID MM Last administered on 09/18/16 10:11; Admin Dose 15 ML; Start 09/07/16 at 09:00 Famotidine (Pepcid) 40 mg DAILY GTB Last administered on 09/18/16 10:12; Admin Dose 40 MG; Start 09/07/16 at 09:00 Lansoprazole (Prevacid) 30 mg BID@ GTB Last administered on 09/18/16 05: 12; Admin Dose 30 MG; Start 09/07/16 at 06:00 Levetiracetam (Keppra Liquid) 500 mg BID GTB Last administered on 09/17/16 20: 59; Admin Dose 500 MG; Start 09/07/16 at 09:00 Metoclopramide HCl (Reglan) 5 mg Q8H PRN GTB NAUSEA AND/OR VOMITING; Start 09/06 at 22:30 Sucralfate (Carafate Susp) 1 gm BID GTB Last administered on 09/17/16 20:59; Admin Dose 1 GM; Start 09/07/16 at 09:00 Ondansetron HCl (Zofran Inj) 4 mg Q6H PRN IV NAUSEA AND/OR VOMITING Last administered on 09/17/16 00:52; Admin Dose 4 MG; Start 09/06/16 at 22:30 Morphine Sulfate (morphine) 2 mg Q4H PRN IV PAIN LEVEL 7-10 Last administered on 09/16/16 20:19; Admin Dose 2 MG; Start 09/06/16 at 22:30 Metoclopramide HCl (Reglan) 5 mg Q6H PRN IV RESIDUALS > 100; Start 09/10/16 at 19:00 Clonidine (Catapres) 0.1 mg Q6H PRN GTB ELEVATED SYSTOLIC BP Last administered on 09/15/16 07:04; Admin Dose 0.1 MG; Start 09/13/16 at 23:00 Hydralazine HCl (Apresoline) 10 mg Q6H PRN IV ELEVATED SYSTOLIC BP Last administered on 09/15/16 02:08; Admin Dose 10 MG; Start 09/15/16 at 01:50 Collagenase (Santyl) 1 applic DAILY TOP ; Start 09/18/16 at 09:00 QUIN ORTIZ Sep 18, 2016 16:57
[2016-09-18] MEDS ORDERED: DEXTROSE 5%-0.9% NACL 1,000 ML IV SCH (17:00)
[2016-09-18] MEDS: IPRATROPIUM (NEB) 0.5 MG/2.5 ML AMP HHN SCH ×2 (17:18→20:53)
[2016-09-18] MEDS: LEVALBUTEROL (NEB) 1.25 MG/0.5 ML AMP HHN SCH ×2 (17:20→20:53)
--- NOTE | 2016-09-18 19:08 | CONS ---
DATE OF ADMISSION: 09/06/2016 DATE OF CONSULTATION: 09/18/2016 CHIEF COMPLAINT: Clogged G-tube. PHYSICAL The patient is contracted, is unresponsive status post tracheostomy. I examined the G-tube . The G-tube is in the proper position. I took a 50 mL syringe and I flushed it with air and at th is time, the G-tube is easily declogged. I instilled 50 mL of fluid to see if the fluid would go in, and the fluid is easily instilled into t he stomach. PLAN: I recommended starting G-tube feeding. Dictated By: GEORGE SOTO/NTS Conf#: [id number] DID#: [id number] CC: GEORGE DOS SANTOS MD;*EndCC*
[2016-09-19] VITALS (24 sets, daily range): BP systolic 97–130; BP diastolic 60–78; PULSE 99–106; RESP 14–24
[2016-09-19] MEDS: IPRATROPIUM (NEB) 0.5 MG/2.5 ML AMP HHN SCH ×4 (01:28→20:29)
[2016-09-19] MEDS: LEVALBUTEROL (NEB) 1.25 MG/0.5 ML AMP HHN SCH ×4 (01:28→20:29)
[2016-09-19] MEDS: LANSOPRAZOLE 30 MG CAP GTB SCH ×2 (05:34→17:26)
[2016-09-19 07:18] LABS: POTASSIUM 3.3 mmol/L (3.5-5.1)
[2016-09-19 07:20] LABS: CREATININE 1.58 mg/dl (0.61-1.24)
[2016-09-19 07:21] LABS: CALCIUM 7.6 mg/dl (8.4-10.2)
[2016-09-19] MEDS: LEVETIRACETAM (100 MG/ML) 5ML CUP GTB SCH ×2 (09:29→22:19)
[2016-09-19] MEDS: CHLORHEXIDINE GLUCONATE 15 ML UD CUP MM SCH ×2 (09:29→22:19)
[2016-09-19] MEDS: CALCITRIOL 0.25 MCG CAP GTB SCH (09:29)
[2016-09-19] MEDS: ALLOPURINOL 100 MG TAB GTB SCH (09:29)
[2016-09-19] MEDS: SUCRALFATE (100 MG/ML) 10ML CUP GTB SCH ×2 (09:29→22:19)
[2016-09-19] MEDS: SEVELAMER CARBONATE 2.4 GM PKT GTB SCH ×3 (09:29→17:26)
[2016-09-19] MEDS: ASCORBIC ACID 500 MG TAB GTB SCH ×2 (09:29→22:20)
[2016-09-19] MEDS: COLLAGENASE 30 GM TUBE TOP SCH (09:30)
[2016-09-19] MEDS: FAMOTIDINE 20 MG TAB GTB SCH (09:30)
[2016-09-19] MEDS: GLYCOPYRROLATE 1 MG TAB GTB SCH ×3 (09:34→22:19)
[2016-09-19 09:35] LABS: BASOPHILS % 0.2 % (0.0-2.0); EOSINOPHILS % 0.1 % (0.0-7.0); HEMATOCRIT 25.4 % (42.0-52.0); HEMOGLOBIN 8.8 g/dl (14.0-18.0); LYMPHOCYTES # 0.3 10^3/ul (0.8-2.9); LYMPHOCYTES % 4.1 % (15.0-51.0); MEAN CORPUSCULAR HEMOGLOBIN 31.3 pg (29.0-33.0); MEAN CORPUSCULAR HGB CONC 34.7 g/dl (32.0-37.0); MONOCYTE # 0.9 10^3/ul (0.3-0.9); MONOCYTES % 12.2 % (0.0-11.0); NEUTROPHIL # 6.4 10^3/ul (1.6-7.5); NEUTROPHILS % 83.4 % (39.0-77.0); PLATELET COUNT 37 10^3/UL (140-440); RED BLOOD COUNT 2.82 10^6/ul (4.70-6.10); UNCORRECTED WBC 7.7 10^3/ul (4.8-10.8); WHITE BLOOD COUNT 7.7 10^3/ul (4.8-10.8)
[2016-09-19 09:37] LABS: CONDITION 1; LH ANALYZER COMMENTS 1; MEAN PLATELET VOLUME 9.4 fl (7.4-10.4)
--- NOTE | 2016-09-19 09:38 | PN ---
DATE: 09/19/2016 SUBJECTIVE: The patient's general condition is same. He is on continuous ventilator support throug h tracheostomy. His mental status is also same. He intermittently opens his eyes, but he does not follow and the cooperation is suboptimal. PHYSICAL EXAMINATION: VITAL SIGNS: Show temperature 98.7, pulse rate of 104. Blood pressure 130/71, pulse oximetry showi ng 97% saturation with 50% oxygenation. NECK: Tracheostomy secretions are somewhat copious, still , no purulence or bleeding is seen. No resistance felt during suctioning by respiratory therapist. HEART: Regular rhythm. CHEST: Breath sounds are heard bilaterally, somewhat diminished in the lower lung [place], otherwise clear. ABDOMEN: Soft, tolerating gastrostomy tube feedings. Bowel sounds are present. EXTREMITIES: Show generalized edema. LABORATORY DATA: The patient was noted to have a hemoglobin of 6.6 yesterday and received 2 units o f packed cells during dialysis. WBC count is 4400, trace CBC results are awaited. Chemistry result s show marked improvement in her renal status. BUN has decreased to 64, creatinine is down to 1.58, sodium 136, potassium 3.3, glucose is 82, bicarbonate is 29. IMPRESSION: 1. Sepsis syndrome, improving. 2. Chronic respiratory failure, ventilator dependent. 3. Acute renal failure, improved with dialysis. 4. Questionable pneumonia, resolving. 5. History of seizure disorder. 6. Chronic encephalopathy. 7. Pancytopenia. RECOMMENDATIONS: 1. Continue long-term ventilator support. 2. Continue dialysis as per the insole rasper. 3. Continue hydration. 4. Add Robinul to decrease pulmonary secretions. 5. Continue supportive therapy. Dictated By: VEENA STREETER MD SR/NIKOLAI Conf#: [id number] DID#: [id number]
--- NOTE | 2016-09-19 11:12 | CONS ---
Date/Time of Note Date/Time of Note DATE: 09/19/16 TIME: 11:11 Assessment/Plan Assessment/Plan Additional Assessment/Plan 1. Acute kidney injury on possible chronic kidney disease unknown stage secondary to severe prerenal azotemia causing ischemic acute tubular necrosis in the setting of severe anemia. 2. Severe anemia,s/p PRBC 3. Chronic respiratory failure, status post tracheostomy, on vent. 4. Pancytopenia. 5. History of a seizure disorder. 6. Possible concern about septic shock. PLAN: s/p HD yesterday - will plan for HD tomorrow Us showed kidneys are small in size and increased echogenicity c/w chronic medical renal disease Total Time spent in Patient follow up assessment, Updating patient/Family and Communicating with Nursing staff is >45 minutes Consultation Date/Type/Reason Admit Date/Time Sep 06, 2016 at 22:27 Initial Consult Date Aug Type of Consultation: NEPHROLOGY Reason for Consultation Acute Kidney injury with Uremic encephalopathy and Bleeding Referring Provider: FREDDY COELLO MD Exam/Review of Systems Vital Signs Vitals Vital Signs Date Time Temp Pulse Resp B/P Pulse Ox O2 Delivery O2 Flow Rate FiO2 09/19/16 09:56 99 15 97 50 09/19/16 07:32 98.2 130/71 Intake and Output 09/18/16 09/18/16 09/19/16 15:00 23:00 07:00 Intake Total 620 ml 1700 ml 620 ml Output Total 100 ml 1650 ml 100 ml Balance 520 ml 50 ml 520 ml Results Result Diagram: 09/19/16 0620 09/19/16 0620 Results 24 hrs Laboratory Tests Test 09/18/16 11:55 09/19/16 06:20 Basophils # 0.0 0.0 Basophils % 0.4 0.2 Blood Morphology Comment Eosinophils # 0.0 0.0 Eosinophils % 0.3 0.1 Hematocrit 19.9 L 25.4 #L Hemoglobin 6.6 #*L 8.8 #L Lymphocytes # 0.2 L 0.3 L Lymphocytes % 5.4 L 4.1 L Mean Corpuscular Hemoglobin 30.8 31.3 Mean Corpuscular Hemoglobin Concent 33.3 34.7 Mean Corpuscular Volume 92.5 90.0 Mean Platelet Volume 9.7 9.4 Monocytes # 0.6 0.9 Monocytes % 14.5 H 12.2 H Neutrophils # 3.5 6.4 Neutrophils % 79.4 H 83.4 H Nucleated Red Blood Cells # 0.0 0.0 Nucleated Red Blood Cells % 0.0 0.0 Platelet Count 48 #L 37 #L Red Blood Count 2.15 #L 2.82 #L Red Cell Distribution Width 15.7 H 15.0 H White Blood Count 4.4 L 7.7 # Anion Gap 10 Blood Urea Nitrogen 64 #H Calcium Level 7.6 L Carbon Dioxide Level 29 Chloride Level 100 Creatinine 1.58 H Glucose Level 82 Potassium Level 3.3 L Sodium Level 136 Medications Medications Current Medications Acetaminophen (Tylenol Liquid) 640 mg Q6H PRN GTB PAIN OR TEMP ABOVE 38C; Start 09/06/16 at 22:30 Allopurinol (Zyloprim) 200 mg DAILY GTB Last administered on 09/19/16 09:29; Admin Dose 200 MG; Start 09/07/16 at 09:00 Ascorbic Acid (Vitamin C) 500 mg BID GTB Last administered on 09/19/16 09:29; Admin Dose 500 MG; Start 09/07/16 at 09:00 Calcitriol (Rocaltrol) 0.25 mcg DAILY GTB Last administered on 09/19/16 09:29 ; Admin Dose 0.25 MCG; Start 09/07/16 at 09:00 Chlorhexidine Gluconate (Peridex) 15 ml BID MM Last administered on 09/19/16 09:29; Admin Dose 15 ML; Start 09/07/16 at 09:00 Famotidine (Pepcid) 40 mg DAILY GTB Last administered on 09/19/16 09:30; Admin Dose 40 MG; Start 09/07/16 at 09:00 Lansoprazole (Prevacid) 30 mg BID@06,18 GTB Last administered on 09/19/16 05: 34; Admin Dose 30 MG; Start 09/07/16 at 06:00 Levetiracetam (Keppra Liquid) 500 mg BID GTB Last administered on 09/19/16 09: 29; Admin Dose 500 MG; Start 09/07/16 at 09:00 Metoclopramide HCl (Reglan) 5 mg Q8H PRN GTB NAUSEA AND/OR VOMITING; Start 09/06 at 22:30 Sucralfate (Carafate Susp) 1 gm BID GTB Last administered on 09/19/16 09:29; Admin Dose 1 GM; Start 09/07/16 at 09:00 Ondansetron HCl (Zofran Inj) 4 mg Q6H PRN IV NAUSEA AND/OR VOMITING Last administered on 09/17/16 00:52; Admin Dose 4 MG; Start 09/06/16 at 22:30 Morphine Sulfate (morphine) 2 mg Q4H PRN IV PAIN LEVEL 7-10 Last administered on 09/16/16 20:19; Admin Dose 2 MG; Start 09/06/16 at 22:30 Metoclopramide HCl (Reglan) 5 mg Q6H PRN IV RESIDUALS > 100; Start 09/10/16 at 19:00 Clonidine (Catapres) 0.1 mg Q6H PRN GTB ELEVATED SYSTOLIC BP Last administered on 09/15/16 07:04; Admin Dose 0.1 MG; Start 09/13/16 at 23:00 Hydralazine HCl (Apresoline) 10 mg Q6H PRN IV ELEVATED SYSTOLIC BP Last administered on 09/15/16 02:08; Admin Dose 10 MG; Start 09/15/16 at 01:50 Collagenase (Santyl) 1 applic DAILY TOP Last administered on 09/19/16 09:30; Admin Dose 1 APPLIC; Start 09/18/16 at 09:00 Glycopyrrolate (Robinul) 1 mg Q8 GTB Last administered on 09/19/16 09:34; Admin Dose 1 MG; Start 09/19/16 at 09:30 KENIA TURICOS MD Sep 19, 2016 11:12
--- NOTE | 2016-09-19 15:59 | PN ---
Date/Time of Note Date/Time of Note DATE: 09/19/16 TIME: 15:56 Assessment/Plan VTE Prophylaxis VTE Prophylaxis Intervention: SCD's Lines/Catheters [facility] Dewey catheter Urinary Cath still in place: Yes Reason Cath still needed: urinary retention Assessment/Plan Chief Complaint/Hosp Course ASSESSMENT AND PLAN: 1. Severe anemia 2 GI bleed. Continue to monitor hemoglobin and hematocrit. Dr. Singh is following in gastroenterology consultation. 2. Hypovolemic shock, resolved. 3. Acute kidney failure on chronic kidney disease. continue to monitor BUN and creatinine. Dr. Mk Purdy is following in nephrology consultation. Patient with worsening renal function. Started on Hemodialysis. 4. Pancytopenia. 5. Ventilator-dependent respiratory failure. 6. Possible healthcare-acquired pneumonia. Dr. Aragon is following in pulmonology consultation. Continue ventilator support, bronchodilators. Status post treatment. 7. Dysphagia with PEG. 8. History of seizure disorder. Continue patient on Keppra. 9. Diastolic dysfunction congestive heart failure with preserved ejection fraction of 60%. 10. S/p sepsis. Dr. Guy is following patient in infectious disease consultation. 11. Status post cerebrovascular accident, status post craniotomy. 12. Mental retardation. Continue Protonix for peptic ulcer disease prophylaxis. Further recommendations based on clinical course. Plan of care discussed with Dr. Mcelroy. Problems: Subjective 24 Hr Interval Summary Free Text/Dictation Patient tolerates G-tube feeding well, will advance G-tube feeding to goal, patient status post blood transfusion yesterday, hemoglobin is 8.8 today. Exam/Review of Systems Vital Signs Vitals Vital Signs Date Time Temp Pulse Resp B/P Pulse Ox O2 Delivery O2 Flow Rate FiO2 09/19/16 15:17 97.9 69 18 118/78 100 09/19/16 14:52 50 Intake and Output 09/18/16 09/18/16 09/19/16 15:00 23:00 07:00 Intake Total 620 ml 1700 ml 620 ml Output Total 100 ml 1650 ml 100 ml Balance 520 ml 50 ml 520 ml Exam Constitutional: alert, well developed Head: atraumatic, normocephalic Eyes: nl conjunctiva ENMT: nl external ears & nose Neck: jvd, supple Respiratory: clear to auscultation Cardiovascular: regular rate and rhythm Gastrointestinal: nl liver, spleen, soft Genitourinary - Male: nl penis, other ( Brar catheter ) Musculoskeletal: nl extremities to inspection, Extremities: normal pulses, bilateral LE s/p vascular intervention Results Result Diagram: 09/19/16 0609/19/16 06 Results 24 hrs Laboratory Tests Test 09/19/16 06:20 Anion Gap 10 Basophils # 0.0 Basophils % 0.2 Blood Morphology Comment Blood Urea Nitrogen 64 #H Calcium Level 7.6 L Carbon Dioxide Level 29 Chloride Level 100 Creatinine 1.58 H Eosinophils # 0.0 Eosinophils % 0.1 Glucose Level 82 Hematocrit 25.4 #L Hemoglobin 8.8 #L Lymphocytes # 0.3 L Lymphocytes % 4.1 L Mean Corpuscular Hemoglobin 31.3 Mean Corpuscular Hemoglobin Concent 34.7 Mean Corpuscular Volume 90.0 Mean Platelet Volume 9.4 Monocytes # 0.9 Monocytes % 12.2 H Neutrophils # 6.4 Neutrophils % 83.4 H Nucleated Red Blood Cells # 0.0 Nucleated Red Blood Cells % 0.0 Platelet Count 37 #L Potassium Level 3.3 L Red Blood Count 2.82 #L Red Cell Distribution Width 15.0 H Sodium Level 136 White Blood Count 7.7 # Medications Medications Current Medications Acetaminophen (Tylenol Liquid) 640 mg Q6H PRN GTB PAIN OR TEMP ABOVE 38C; Start 09/06/16 at 22:30 Allopurinol (Zyloprim) 200 mg DAILY GTB Last administered on 09/19/16 09:29; Admin Dose 200 MG; Start 09/07/16 at 09:00 Ascorbic Acid (Vitamin C) 500 mg BID GTB Last administered on 09/19/16 09:29; Admin Dose 500 MG; Start 09/07/16 at 09:00 Calcitriol (Rocaltrol) 0.25 mcg DAILY GTB Last administered on 09/19/16 09:29 ; Admin Dose 0.25 MCG; Start 09/07/16 at 09:00 Chlorhexidine Gluconate (Peridex) 15 ml BID MM Last administered on 09/19/16 09:29; Admin Dose 15 ML; Start 09/07/16 at 09:00 Famotidine (Pepcid) 40 mg DAILY GTB Last administered on 09/19/16 09:30; Admin Dose 40 MG; Start 09/07/16 at 09:00 Lansoprazole (Prevacid) 30 mg BID@18 GTB Last administered on 09/19/16 05: 34; Admin Dose 30 MG; Start 09/07/16 at 06:00 Levetiracetam (Keppra Liquid) 500 mg BID GTB Last administered on 09/19/16 09: 29; Admin Dose 500 MG; Start 09/07/16 at 09:00 Metoclopramide HCl (Reglan) 5 mg Q8H PRN GTB NAUSEA AND/OR VOMITING; Start 09/06 at 22:30 Sucralfate (Carafate Susp) 1 gm BID GTB Last administered on 09/19/16 09:29; Admin Dose 1 GM; Start 09/07/16 at 09:00 Ondansetron HCl (Zofran Inj) 4 mg Q6H PRN IV NAUSEA AND/OR VOMITING Last administered on 09/17/16 00:52; Admin Dose 4 MG; Start 09/06/16 at 22:30 Morphine Sulfate (morphine) 2 mg Q4H PRN IV PAIN LEVEL 7-10 Last administered on 09/16/16 20:19; Admin Dose 2 MG; Start 09/06/16 at 22:30 Metoclopramide HCl (Reglan) 5 mg Q6H PRN IV RESIDUALS > 100; Start 09/10/16 at 19:00 Clonidine (Catapres) 0.1 mg Q6H PRN GTB ELEVATED SYSTOLIC BP Last administered on 09/15/16 07:04; Admin Dose 0.1 MG; Start 09/13/16 at 23:00 Hydralazine HCl (Apresoline) 10 mg Q6H PRN IV ELEVATED SYSTOLIC BP Last administered on 09/15/16 02:08; Admin Dose 10 MG; Start 09/15/16 at 01:50 Collagenase (Santyl) 1 applic DAILY TOP Last administered on 09/19/16 09:30; Admin Dose 1 APPLIC; Start 09/18/16 at 09:00 Glycopyrrolate (Robinul) 1 mg Q8 GTB Last administered on 09/19/16 14:44; Admin Dose 1 MG; Start 09/19/16 at 09:30 QUIN ORTIZ Sep 19, 2016 15:59
[2016-09-20] VITALS (27 sets, daily range): BP systolic 97–172; BP diastolic 55–85; PULSE 99–111; RESP 14–23
[2016-09-20] MEDS: IPRATROPIUM (HFA) 12.9 GM INHALER INH SCH ×4 (01:30→19:12)
[2016-09-20] MEDS: LEVALBUTEROL (HFA) 15 GM INHALER INH SCH ×4 (01:30→19:12)
[2016-09-20] MEDS: GLYCOPYRROLATE 1 MG TAB GTB SCH ×3 (06:22→22:15)
[2016-09-20] MEDS: LANSOPRAZOLE 30 MG CAP GTB SCH ×2 (06:22→17:17)
[2016-09-20 06:24] LABS: HAAIG REFLEX REFLEX FILED
[2016-09-20] MEDS ORDERED: VITAMIN A & D 5 GM OINT PACKET TOP ONE (06:38)
[2016-09-20 06:44] LABS: POTASSIUM 3.6 mmol/L (3.5-5.1)
[2016-09-20 06:46] LABS: CREATININE 1.95 mg/dl (0.61-1.24)
[2016-09-20 07:21] LABS: HEMATOCRIT 27.7 % (42.0-52.0); HEMOGLOBIN 8.9 g/dl (14.0-18.0); MEAN CORPUSCULAR HEMOGLOBIN 30.2 pg (29.0-33.0); MEAN CORPUSCULAR HGB CONC 32.1 g/dl (32.0-37.0); MEAN CORPUSCULAR VOLUME 93.9 fl (82.0-101.0); MEAN PLATELET VOLUME 11.7 fl (7.4-10.4); RED BLOOD COUNT 2.95 10^6/ul (4.70-6.10); RED CELL DISTRIBUTION WIDTH 16.9 % (11.5-14.5); WHITE BLOOD COUNT 7.9 10^3/ul (4.8-10.8)
[2016-09-20 07:22] LABS: BASOPHILS % 0.3 % (0.0-2.0); EOSINOPHILS # 0.1 10^3/ul (0.0-0.5); LYMPHOCYTES # 0.5 10^3/ul (0.8-2.9); LYMPHOCYTES % 5.7 % (15.0-51.0); MONOCYTES % 12.8 % (0.0-11.0); NEUTROPHIL # 6.3 10^3/ul (1.6-7.5); NEUTROPHILS % 79.7 % (39.0-77.0)
[2016-09-20 07:23] LABS: PLATELET COUNT 63 10^3/UL (140-440)
[2016-09-20 07:53] LABS: HEPATITIS B CORE ANTIBODY NEGATIVE (NEGATIVE)
[2016-09-20] MEDS: ALLOPURINOL 100 MG TAB GTB SCH (08:10)
[2016-09-20] MEDS: CALCITRIOL 0.25 MCG CAP GTB SCH (08:10)
[2016-09-20] MEDS: ASCORBIC ACID 500 MG TAB GTB SCH ×2 (08:10→22:15)
[2016-09-20] MEDS: LEVETIRACETAM (100 MG/ML) 5ML CUP GTB SCH ×2 (08:11→22:15)
[2016-09-20] MEDS: SUCRALFATE (100 MG/ML) 10ML CUP GTB SCH ×2 (08:11→22:14)
[2016-09-20] MEDS: SEVELAMER CARBONATE 2.4 GM PKT GTB SCH ×3 (08:11→17:17)
[2016-09-20] MEDS: FAMOTIDINE 20 MG TAB GTB SCH (08:11)
[2016-09-20] MEDS: CHLORHEXIDINE GLUCONATE 15 ML UD CUP MM SCH ×2 (08:11→22:15)
[2016-09-20] MEDS: COLLAGENASE 30 GM TUBE TOP SCH (08:12)
--- NOTE | 2016-09-20 10:49 | CONS ---
Date/Time of Note Date/Time of Note DATE: 09/20/16 TIME: 10:46 Assessment/Plan Assessment/Plan Additional Assessment/Plan 1. Acute kidney injury on possible chronic kidney disease unknown stage secondary to severe prerenal azotemia causing ischemic acute tubular necrosis in the setting of severe anemia. 2. Severe anemia,s/p PRBC 3. Chronic respiratory failure, status post tracheostomy, on vent. 4. Pancytopenia. 5. History of a seizure disorder. 6. Possible concern about septic shock. PLAN: - will plan for HD today Us showed kidneys are small in size and increased echogenicity c/w chronic medical renal disease will continue to follow Total Time spent in Patient follow up assessment, Updating patient/Family and Communicating with Nursing staff is >45 minutes Consultation Date/Type/Reason Admit Date/Time Sep 06, 2016 at 22:27 Initial Consult Date Aug Type of Consultation: NEPHROLOGY Reason for Consultation MICHELLE on CKD progressed to uremic encephalopathy, stared on HD Referring Provider: FREDDY COELLO MD 24 HR Interval Summary Free Text/Dictation plan for HD today Exam/Review of Systems Vital Signs Vitals Vital Signs Date Time Temp Pulse Resp B/P Pulse Ox O2 Delivery O2 Flow Rate FiO2 09/20/16 09:20 112 17 98 50 09/20/16 07:51 98.2 101/55 Intake and Output 09/19/16 09/19/16 09/20/16 15:00 23:00 07:00 Intake Total 620 ml 620 ml Output Total 100 ml Balance 520 ml 620 ml Exam NECK: Tracheal secretions are clear. No bleeding is seen. HEART: Regular rhythm. CHEST: Breath sounds are heard bilaterally, diminished in both the lower lung [place] with a few intermittent rales and rhonchi. ABDOMEN: Soft. He is tolerating gastrostomy tube feedings. No vomiting has been reported. No distention is seen. EXTREMITIES: Show muscle wasting and spasticity. + litzy Catheter Results Result Diagram: 09/20/16 0605 09/20/16 0605 Results 24 hrs Laboratory Tests Test 09/20/16 06:05 09/20/16 06:13 Anion Gap 10 Basophils # 0.0 Basophils % 0.3 Blood Urea Nitrogen 70 H Calcium Level 8.0 L Carbon Dioxide Level 31 Chloride Level 99 Creatinine 1.95 H Eosinophils # 0.1 Eosinophils % 1.0 Glucose Level 73 Hematocrit 27.7 L Hemoglobin 8.9 L Lymphocytes # 0.5 L Lymphocytes % 5.7 L Mean Corpuscular Hemoglobin 30.2 Mean Corpuscular Hemoglobin Concent 32.1 Mean Corpuscular Volume 93.9 Mean Platelet Volume 11.7 #H Monocytes # 1.0 H Monocytes % 12.8 H Neutrophils # 6.3 Neutrophils % 79.7 H Nucleated Red Blood Cells # 0.0 Nucleated Red Blood Cells % 0.0 Platelet Count 63 #L Potassium Level 3.6 Red Blood Count 2.95 L Red Cell Distribution Width 16.9 H Sodium Level 136 White Blood Count 7.9 Hepatitis B Core Total Antibody NEGATIVE Hepatitis B Surface Antigen NEGATIVE Hepatitis C Antibody NEGATIVE Medications Medications Current Medications Acetaminophen (Tylenol Liquid) 640 mg Q6H PRN GTB PAIN OR TEMP ABOVE 38C; Start 09/06/16 at 22:30 Allopurinol (Zyloprim) 200 mg DAILY GTB Last administered on 09/20/16 08:10; Admin Dose 200 MG; Start 09/07/16 at 09:00 Ascorbic Acid (Vitamin C) 500 mg BID GTB Last administered on 09/20/16 08:10; Admin Dose 500 MG; Start 09/07/16 at 09:00 Calcitriol (Rocaltrol) 0.25 mcg DAILY GTB Last administered on 09/20/16 08:10 ; Admin Dose 0.25 MCG; Start 09/07/16 at 09:00 Chlorhexidine Gluconate (Peridex) 15 ml BID MM Last administered on 09/20/16 08:11; Admin Dose 15 ML; Start 09/07/16 at 09:00 Famotidine (Pepcid) 40 mg DAILY GTB Last administered on 09/20/16 08:11; Admin Dose 40 MG; Start 09/07/16 at 09:00 Lansoprazole (Prevacid) 30 mg BID@18 GTB Last administered on 09/20/16 06: 22; Admin Dose 30 MG; Start 09/07/16 at 06:00 Levetiracetam (Keppra Liquid) 500 mg BID GTB Last administered on 09/20/16 08: 11; Admin Dose 500 MG; Start 09/07/16 at 09:00 Metoclopramide HCl (Reglan) 5 mg Q8H PRN GTB NAUSEA AND/OR VOMITING; Start 09/06 at 22:30 Sucralfate (Carafate Susp) 1 gm BID GTB Last administered on 09/20/16 08:11; Admin Dose 1 GM; Start 09/07/16 at 09:00 Ondansetron HCl (Zofran Inj) 4 mg Q6H PRN IV NAUSEA AND/OR VOMITING Last administered on 09/17/16 00:52; Admin Dose 4 MG; Start 09/06/16 at 22:30 Morphine Sulfate (morphine) 2 mg Q4H PRN IV PAIN LEVEL 7-10 Last administered on 09/16/16 20:19; Admin Dose 2 MG; Start 09/06/16 at 22:30 Metoclopramide HCl (Reglan) 5 mg Q6H PRN IV RESIDUALS > 100; Start 09/10/16 at 19:00 Clonidine (Catapres) 0.1 mg Q6H PRN GTB ELEVATED SYSTOLIC BP Last administered on 09/15/16 07:04; Admin Dose 0.1 MG; Start 09/13/16 at 23:00 Hydralazine HCl (Apresoline) 10 mg Q6H PRN IV ELEVATED SYSTOLIC BP Last administered on 09/15/16 02:08; Admin Dose 10 MG; Start 09/15/16 at 01:50 Collagenase (Santyl) 1 applic DAILY TOP Last administered on 09/19/16 09:30; Admin Dose 1 APPLIC; Start 09/18/16 at 09:00 Glycopyrrolate (Robinul) 1 mg Q8 GTB Last administered on 09/20/16 06:22; Admin Dose 1 MG; Start 09/19/16 at 09:30 KENIA TURCIOS MD Sep 20, 2016 10:49
--- NOTE | 2016-09-20 12:04 | PN ---
DATE: 09/20/2016 PULMONARY FOLLOWUP SUBJECTIVE: The patient is breathing comfortably with the ventilator support through the tracheosto my. He seems to be awake, his eyes are partly open, but he makes eye contact and does not follow an y commands. According to respiratory therapist he has not had any difficulty in breathing. He is _ ____ with the ventilator. PHYSICAL EXAMINATION: VITAL SIGNS: Show temperature 98.2, pulse rate of 112, respirations 17, pulse oximetry showing 98% saturation, blood pressure is 101/55. NECK: Tracheal secretions are much less and clear. No bleeding is seen. There is no obstruction f ound during suctioning by respiratory therapist. HEART: Sinus tachycardia. CHEST: Breath sounds are heard bilaterally, diminished in both the lower lung [place] with a few occ asional rales and rhonchi. Otherwise, mostly clear lung [place]. ABDOMEN: Soft, not distended. He is tolerating gastrostomy tube feedings. Bowel sounds are presen t. EXTREMITIES: Show generalized edema, spasticity seen in all the extremities. LABORATORY DATA: Show sodium 136, potassium 3.6, BUN 70, creatinine 1.95. BUN and creatinine have been gradually decreasing though slightly more than yesterday. The glucose is 73. The CBC shows a WBC 7900, hemoglobin 8.9, hematocrit 27.7, platelet count is gradually improving, still less than no rmal at 63,000. IMPRESSION: 1. Sepsis syndrome, improving, off antibiotics now. 2. Chronic respiratory failure, ventilator dependent. 3. Acute renal failure, on dialysis. 4. History of seizure disorder. 5. Chronic encephalopathy. 6. Pancytopenia. RECOMMENDATIONS: 1. Continue long-term ventilator support. 2. Continue dialysis as per [employer] [facility]. 3. Continue G-tube feedings and hydration. 4. Continue supportive therapy. Dictated By: VEENA STREETER MD SR/NTS Conf#: [id number] DID#: [id number]
--- NOTE | 2016-09-20 12:36 | PN ---
Date/Time of Note Date/Time of Note DATE: 09/20/16 TIME: 12:32 Assessment/Plan VTE Prophylaxis VTE Prophylaxis Intervention: other Lines/Catheters IV Catheter Type (from Nrs): PRIYA CATH Urinary Cath still in place: Yes Reason Cath still needed: urinary retention Assessment/Plan Assessment/Plan DO NOT RESUSCITATE 1. Severe anemia 2 GI bleed- no obvious bleeding reported - per Dr. Singh in gastroenterology consultation. - Continue to monitor hemoglobin and hematocrit. 2. Hypovolemic shock, resolving. continue IV fluids. 3. Acute kidney failure secondary to #1 and #2. Continue to monitor BUN and creatinine. - per Dr. Mk Purdy in nephrology consultation. 4. Pancytopenia. 5. Ventilator-dependent respiratory failure. 6. Possible healthcare-acquired pneumonia. - per Dr. Aragon in pulmonology consultation. - Continue ventilator support, bronchodilators. The patient will continue broad spectrum antibiotics for possible pneumonia. 7. Possible sepsis. - per Dr. Guy in infectious disease consultation. 8. History of seizure disorder. - Continue patient on Keppra. - seizure precutions 9. Diastolic dysfunction congestive heart failure with preserved ejection fraction of 60%. 10. Dysphagia with PEG - aspiration precautions 11. Status post cerebrovascular accident, status post craniotomy. 12. Mental retardation. 13. Thrombocytopenia- minitor, will get Hematology consult if lab is not improving. Continue Protonix for peptic ulcer disease prophylaxis. Further recommendations based on clinical course. Plan of care discussed with Dr. Mcelroy. Subjective 24 Hr Interval Summary Free Text/Dictation NAD, for HD today. dw staff- no new issues reported. Constitutional: requiring IVF, requiring O2 Exam/Review of Systems Vital Signs Vitals Vital Signs Date Time Temp Pulse Resp B/P Pulse Ox O2 Delivery O2 Flow Rate FiO2 09/20/16 12:16 99 09/20/16 10:54 98.2 18 117/78 97 09/20/16 09:20 50 Intake and Output 09/19/16 09/19/16 09/20/16 15:00 23:00 07:00 Intake Total 620 ml 620 ml Output Total 100 ml Balance 520 ml 620 ml Exam Constitutional: alert Psych: nl mood/affect Head: atraumatic Eyes: EOMI, nl sclera ENMT: nl external ears & nose Neck: non-tender Respiratory: diminished breath sounds Cardiovascular: nl pulses Gastrointestinal: non-tender, other, soft Musculoskeletal: muscle weakness Extremities: normal pulses Neurological: confused Results Result Diagram: 09/20/16 0605 09/20/16 0605 Results 24 hrs Laboratory Tests Test 09/20/16 06:05 09/20/16 06:13 Anion Gap 10 Basophils # 0.0 Basophils % 0.3 Blood Urea Nitrogen 70 H Calcium Level 8.0 L Carbon Dioxide Level 31 Chloride Level 99 Creatinine 1.95 H Eosinophils # 0.1 Eosinophils % 1.0 Glucose Level 73 Hematocrit 27.7 L Hemoglobin 8.9 L Lymphocytes # 0.5 L Lymphocytes % 5.7 L Mean Corpuscular Hemoglobin 30.2 Mean Corpuscular Hemoglobin Concent 32.1 Mean Corpuscular Volume 93.9 Mean Platelet Volume 11.7 #H Monocytes # 1.0 H Monocytes % 12.8 H Neutrophils # 6.3 Neutrophils % 79.7 H Nucleated Red Blood Cells # 0.0 Nucleated Red Blood Cells % 0.0 Platelet Count 63 #L Potassium Level 3.6 Red Blood Count 2.95 L Red Cell Distribution Width 16.9 H Sodium Level 136 White Blood Count 7.9 Hepatitis B Core Total Antibody NEGATIVE Hepatitis B Surface Antigen NEGATIVE Hepatitis C Antibody NEGATIVE Medications Medications Current Medications Acetaminophen (Tylenol Liquid) 640 mg Q6H PRN GTB PAIN OR TEMP ABOVE 38C; Start 09/06/16 at 22:30 Allopurinol (Zyloprim) 200 mg DAILY GTB Last administered on 09/20/16 08:10; Admin Dose 200 MG; Start 09/07/16 at 09:00 Ascorbic Acid (Vitamin C) 500 mg BID GTB Last administered on 09/20/16 08:10; Admin Dose 500 MG; Start 09/07/16 at 09:00 Calcitriol (Rocaltrol) 0.25 mcg DAILY GTB Last administered on 09/20/16 08:10 ; Admin Dose 0.25 MCG; Start 09/07/16 at 09:00 Chlorhexidine Gluconate (Peridex) 15 ml BID MM Last administered on 09/20/16 08:11; Admin Dose 15 ML; Start 09/07/16 at 09:00 Famotidine (Pepcid) 40 mg DAILY GTB Last administered on 09/20/16 08:11; Admin Dose 40 MG; Start 09/07/16 at 09:00 Lansoprazole (Prevacid) 30 mg BID@18 GTB Last administered on 09/20/16 06: 22; Admin Dose 30 MG; Start 09/07/16 at 06:00 Levetiracetam (Keppra Liquid) 500 mg BID GTB Last administered on 09/20/16 08: 11; Admin Dose 500 MG; Start 09/07/16 at 09:00 Metoclopramide HCl (Reglan) 5 mg Q8H PRN GTB NAUSEA AND/OR VOMITING; Start 09/06 at 22:30 Sucralfate (Carafate Susp) 1 gm BID GTB Last administered on 09/20/16 08:11; Admin Dose 1 GM; Start 09/07/16 at 09:00 Ondansetron HCl (Zofran Inj) 4 mg Q6H PRN IV NAUSEA AND/OR VOMITING Last administered on 09/17/16 00:52; Admin Dose 4 MG; Start 09/06/16 at 22:30 Morphine Sulfate (morphine) 2 mg Q4H PRN IV PAIN LEVEL 7-10 Last administered on 09/16/16 20:19; Admin Dose 2 MG; Start 09/06/16 at 22:30 Metoclopramide HCl (Reglan) 5 mg Q6H PRN IV RESIDUALS > 100; Start 09/10/16 at 19:00 Clonidine (Catapres) 0.1 mg Q6H PRN GTB ELEVATED SYSTOLIC BP Last administered on 09/15/16 07:04; Admin Dose 0.1 MG; Start 09/13/16 at 23:00 Hydralazine HCl (Apresoline) 10 mg Q6H PRN IV ELEVATED SYSTOLIC BP Last administered on 09/15/16 02:08; Admin Dose 10 MG; Start 09/15/16 at 01:50 Collagenase (Santyl) 1 applic DAILY TOP Last administered on 09/19/16 09:30; Admin Dose 1 APPLIC; Start 09/18/16 at 09:00 Glycopyrrolate (Robinul) 1 mg Q8 GTB Last administered on 09/20/16 06:22; Admin Dose 1 MG; Start 09/19/16 at 09:30 KRISTOPHER SOTO Sep 20, 2016 12: at 22:30 Sucralfate (Carafate Susp) 1 gm BID GTB Last administered on 09/20/16 08:11; Admin Dose 1 GM; Start 09/07/16 at 09:00 Ondansetron HCl (Zofran Inj) 4 mg Q6H PRN IV NAUSEA AND/OR VOMITING Last administered on 09/17/16 00:52; Admin Dose 4 MG; Start 09/06/16 at 22:30 Morphine Sulfate (morphine) 2 mg Q4H PRN IV PAIN LEVEL 7-10 Last administered on 09/16/16 20:19; Admin Dose 2 MG; Start 09/06/16 at 22:30 Metoclopramide HCl (Reglan) 5 mg Q6H PRN IV RESIDUALS > 100; Start 09/10/16 at 19:00 Clonidine (Catapres) 0.1 mg Q6H PRN GTB ELEVATED SYSTOLIC BP Last administered on 09/15/16 07:04; Admin Dose 0.1 MG; Start 09/13/16 at 23:00 Hydralazine HCl (Apresoline) 10 mg Q6H PRN IV ELEVATED SYSTOLIC BP Last administered on 09/15/16 02:08; Admin Dose 10 MG; Start 09/15/16 at 01:50 Collagenase (Santyl) 1 applic DAILY TOP Last administered on 09/19/16 09:30; Admin Dose 1 APPLIC; Start 09/18/16 at 09:00 Glycopyrrolate (Robinul) 1 mg Q8 GTB Last administered on 09/20/16 06:22; Admin Dose 1 MG; Start 09/19/16 at 09:30 KRISTOPHER SOTO Sep 20, 2016 12:36
[2016-09-21] VITALS (24 sets, daily range): BP systolic 130–177; BP diastolic 60–85; PULSE 94–114; RESP 15–24
[2016-09-21] MEDS: LEVALBUTEROL (HFA) 15 GM INHALER INH SCH ×4 (01:05→20:16)
[2016-09-21] MEDS: IPRATROPIUM (HFA) 12.9 GM INHALER INH SCH ×4 (01:05→20:16)
[2016-09-21] MEDS: GLYCOPYRROLATE 1 MG TAB GTB SCH ×3 (06:10→20:59)
[2016-09-21] MEDS: LANSOPRAZOLE 30 MG CAP GTB SCH ×2 (06:10→17:39)
[2016-09-21] MEDS: SEVELAMER CARBONATE 2.4 GM PKT GTB SCH ×3 (07:52→17:38)
[2016-09-21] MEDS: SUCRALFATE (100 MG/ML) 10ML CUP GTB SCH ×2 (08:22→20:59)
[2016-09-21] MEDS: CHLORHEXIDINE GLUCONATE 15 ML UD CUP MM SCH ×2 (08:22→20:59)
[2016-09-21] MEDS: ALLOPURINOL 100 MG TAB GTB SCH (08:22)
[2016-09-21] MEDS: ASCORBIC ACID 500 MG TAB GTB SCH ×2 (08:22→20:59)
[2016-09-21] MEDS: CALCITRIOL 0.25 MCG CAP GTB SCH (08:22)
[2016-09-21] MEDS: FAMOTIDINE 20 MG TAB GTB SCH (08:22)
[2016-09-21] MEDS: LEVETIRACETAM (100 MG/ML) 5ML CUP GTB SCH ×2 (08:22→20:59)
[2016-09-21] MEDS: COLLAGENASE 30 GM TUBE TOP SCH (08:23)
--- NOTE | 2016-09-21 11:37 | CONS ---
Date/Time of Note Date/Time of Note DATE: 09/21/16 TIME: 11:35 Assessment/Plan Assessment/Plan Additional Assessment/Plan 1. Acute kidney injury on possible chronic kidney disease unknown stage secondary to severe prerenal azotemia causing ischemic acute tubular necrosis in the setting of severe anemia. 2. Severe anemia,s/p PRBC 3. Chronic respiratory failure, status post tracheostomy, on vent. 4. Pancytopenia. 5. History of a seizure disorder. 6. Possible concern about septic shock. 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 No bleeding is seen. HEART: Regular rhythm. CHEST: Breath sounds are heard bilaterally, diminished in both the lower lung [place] with a few intermittent rales and rhonchi. ABDOMEN: Soft. He is tolerating gastrostomy tube feedings. No vomiting has been reported. No distention is seen. EXTREMITIES: Show muscle wasting and spasticity. + litzy Catheter Results Result Diagram: 09/20/1660409/20/16604 Medications Medications Current Medications Acetaminophen (Tylenol Liquid) 640 mg Q6H PRN GTB PAIN OR TEMP ABOVE 38C; Start 09/06/16 at 22:30 Allopurinol (Zyloprim) 200 mg DAILY GTB Last administered on 09/21/16 08:22; Admin Dose 200 MG; Start 09/07/16 at 09:00 Ascorbic Acid (Vitamin C) 500 mg BID GTB Last administered on 09/21/16 08:22; Admin Dose 500 MG; Start 09/07/16 at 09:00 Calcitriol (Rocaltrol) 0.25 mcg DAILY GTB Last administered on 09/21/16 08:22 ; Admin Dose 0.25 MCG; Start 09/07/16 at 09:00 Chlorhexidine Gluconate (Peridex) 15 ml BID MM Last administered on 09/21/16 08:22; Admin Dose 15 ML; Start 09/07/16 at 09:00 Famotidine (Pepcid) 40 mg DAILY GTB Last administered on 09/21/16 08:22; Admin Dose 40 MG; Start 09/07/16 at 09:00 Lansoprazole (Prevacid) 30 mg BID@18 GTB Last administered on 09/21/16 06: 10; Admin Dose 30 MG; Start 09/07/16 at 06:00 Levetiracetam (Keppra Liquid) 500 mg BID GTB Last administered on 09/21/16 08: 22; Admin Dose 500 MG; Start 09/07/16 at 09:00 Metoclopramide HCl (Reglan) 5 mg Q8H PRN GTB NAUSEA AND/OR VOMITING; Start 09/06 at 22:30 Sucralfate (Carafate Susp) 1 gm BID GTB Last administered on 09/21/16 08:22; Admin Dose 1 GM; Start 09/07/16 at 09:00 Ondansetron HCl (Zofran Inj) 4 mg Q6H PRN IV NAUSEA AND/OR VOMITING Last administered on 09/17/16 00:52; Admin Dose 4 MG; Start 09/06/16 at 22:30 Morphine Sulfate (morphine) 2 mg Q4H PRN IV PAIN LEVEL 7-10 Last administered on 09/16/16 20:19; Admin Dose 2 MG; Start 09/06/16 at 22:30 Metoclopramide HCl (Reglan) 5 mg Q6H PRN IV RESIDUALS > 100; Start 09/10/16 at 19:00 Clonidine (Catapres) 0.1 mg Q6H PRN GTB ELEVATED SYSTOLIC BP Last administered on 09/15/16 07:04; Admin Dose 0.1 MG; Start 09/13/16 at 23:00 Hydralazine HCl (Apresoline) 10 mg Q6H PRN IV ELEVATED SYSTOLIC BP Last administered on 09/15/16 02:08; Admin Dose 10 MG; Start 09/15/16 at 01:50 Collagenase (Santyl) 1 applic DAILY TOP Last administered on 09/21/16 08:23; Admin Dose 1 APPLIC; Start 09/18/16 at 09:00 Glycopyrrolate (Robinul) 1 mg Q8 GTB Last administered on 09/21/16 06:10; Admin Dose 1 MG; Start 09/19/16 at 09:30 KENIA TURCIOS MD Sep 21, 2016 11:37
[2016-09-21] MEDS ORDERED: ALTEPLASE (CATHFLO) 2 MG INJ CATHETER ONE (13:00)
--- NOTE | 2016-09-21 13:28 | PN ---
DATE: 09/21/2016 INFECTIOUS DISEASE PROGRESS NOTE SUBJECTIVE: No acute events overnight per report. The patient is lying comfortably in bed, afebril e. VITAL SIGNS: T-max was 100.4 this morning. INDWELLINGS: Trach, PEG, Brar, left IJ Dewey. No labs this morning. ANTIMICROBIALS: The patient is off antibiotics. PHYSICAL EXAMINATION: GENERAL: Chronically ill-appearing, elderly man who is in no distress. HEENT: Head atraumatic, normocephalic. Sclerae anicteric. Buccal mucosa dry. NECK: Supple. Tracheostomy present. CHEST: Rise symmetrical. Breath sounds diminished to bases. HEART: S1, S2. ABDOMEN: Soft, bowel sounds present. EXTREMITIES: Contractures. SKIN: With multiple decubitus. ASSESSMENT: 1. Status post sepsis with shock. 2. Chronic respiratory failure. 3. Acute on chronic kidney disease, hemodialysis dependent. 4. History of seizure disorder. 5. Anemia. 6. Encephalopathy. 7. ALLERGY TO ZITHROMAX, ZOSYN, AND ERYTHROMYCIN. PLAN: The patient remains stable off antibiotics. Continue present care. Local wound care per junie parker staff and wound care nurse. Dictated By: ARUN DIANA PASSENGER INTERLINE CLERK for [employer]/NTS Conf#: [id number] DID#: [id number]
--- NOTE | 2016-09-21 14:12 | PN ---
DATE: 09/21/2016 SUBJECTIVE: The patient's general condition is same. He is breathing comfortably with the ventilato r support. No signs of respiratory distress. VITAL SIGNS: Stable. Temperature is 98.2, blood pressure 139/78, pulse rate is 104, respirations 1 9, pulse oximetry 100% saturation on 40% inhaled oxygen concentration. NECK: Tracheal secretions are clear. No bleeding is seen. HEART: Regular rhythm. CHEST: Breath sounds are heard bilaterally, somewhat diminished in the lower lung [place], otherwise clear. ABDOMEN: Soft, not distended. He has had no vomiting episodes. Tube feeding is tolerated well. EXTREMITIES: Show generalized edema. This seems to be getting slightly better. Spasticity seen in all the extremities. LABORATORY DATA: No lab results today. IMPRESSION: 1. Sepsis syndrome, improving off antibiotics now. 2. Chronic respiratory failure, ventilator dependent. 3. Acute renal failure on dialysis. 4. History of seizure disorder. 5. Chronic encephalopathy. 6. Pancytopenia. RECOMMENDATIONS: 1. Continue long-term ventilator support. 2. Continue dialysis as per the engine specialist. 3. Continue G-tube feedings and hydration. 4. Continue supportive therapy. Dictated By: VEENA STREETER MD SR/NTS Conf#: [id number] DID#: [id number]
--- NOTE | 2016-09-21 14:45 | PN ---
Date/Time of Note Date/Time of Note DATE: 09/21/16 TIME: 14:37 Assessment/Plan VTE Prophylaxis VTE Prophylaxis Intervention: SCD's Lines/Catheters [facility] PRIYA CATH Urinary Cath still in place: Yes Reason Cath still needed: urinary retention Assessment/Plan Chief Complaint/Hosp Course ASSESSMENT AND PLAN: 1. Severe anemia 2 GI bleed. Continue to monitor hemoglobin and hematocrit. Dr. iSngh is following in gastroenterology consultation. 2. Hypovolemic shock, resolved. 3. Acute kidney failure on chronic kidney disease. Continue to monitor BUN and creatinine. Dr. Mk Purdy is following in nephrology consultation. Patient with worsening renal function. Started on Hemodialysis during this admission. 4. Pancytopenia. 5. Ventilator-dependent respiratory failure. 6. Possible healthcare-acquired pneumonia. Dr. Aragon is following in pulmonology consultation. Continue ventilator support, bronchodilators. Status post treatment. 7. Dysphagia with PEG. 8. History of seizure disorder. Continue patient on Keppra. 9. Diastolic dysfunction congestive heart failure with preserved ejection fraction of 60%. 10. S/p sepsis. Dr. Guy is following patient in infectious disease consultation. 11. Status post cerebrovascular accident, status post craniotomy. 12. Mental retardation. Continue Protonix for peptic ulcer disease prophylaxis. Further recommendations based on clinical course. Plan of care discussed with Dr. Mcelroy. Problems: Subjective 24 Hr Interval Summary Free Text/Dictation Patient is slightly tachycardic, no fever. Exam/Review of Systems Vital Signs Vitals Vital Signs Date Time Temp Pulse Resp B/P Pulse Ox O2 Delivery O2 Flow Rate FiO2 09/21/16 14:18 102 19 100 40 09/21/16 11:12 98.2 139/78 Intake and Output 09/20/16 09/20/16 09/21/16 15:00 23:00 07:00 Intake Total 500 ml 640 ml 640 ml Output Total 1000 ml 100 ml 150 ml Balance -500 ml 540 ml 490 ml Exam Constitutional: alert, well developed Head: atraumatic, normocephalic Eyes: nl conjunctiva ENMT: nl external ears & nose Neck: jvd, supple Respiratory: clear to auscultation Cardiovascular: regular rate and rhythm Gastrointestinal: nl liver, spleen, soft Genitourinary - Male: nl penis, other ( Brar catheter ) Musculoskeletal: nl extremities to inspection, Extremities: normal pulses, bilateral LE s/p vascular intervention Results Result Diagram: 09/20/1660409/20/16604 Medications Medications Current Medications Acetaminophen (Tylenol Liquid) 640 mg Q6H PRN GTB PAIN OR TEMP ABOVE 38C; Start 09/06/16 at 22:30 Allopurinol (Zyloprim) 200 mg DAILY GTB Last administered on 09/21/16 08:22; Admin Dose 200 MG; Start 09/07/16 at 09:00 Ascorbic Acid (Vitamin C) 500 mg BID GTB Last administered on 09/21/16 08:22; Admin Dose 500 MG; Start 09/07/16 at 09:00 Calcitriol (Rocaltrol) 0.25 mcg DAILY GTB Last administered on 09/21/16 08:22 ; Admin Dose 0.25 MCG; Start 09/07/16 at 09:00 Chlorhexidine Gluconate (Peridex) 15 ml BID MM Last administered on 09/21/16 08:22; Admin Dose 15 ML; Start 09/07/16 at 09:00 Famotidine (Pepcid) 40 mg DAILY GTB Last administered on 09/21/16 08:22; Admin Dose 40 MG; Start 09/07/16 at 09:00 Lansoprazole (Prevacid) 30 mg BID@18 GTB Last administered on 09/21/16 06: 10; Admin Dose 30 MG; Start 09/07/16 at 06:00 Levetiracetam (Keppra Liquid) 500 mg BID GTB Last administered on 09/21/16 08: 22; Admin Dose 500 MG; Start 09/07/16 at 09:00 Metoclopramide HCl (Reglan) 5 mg Q8H PRN GTB NAUSEA AND/OR VOMITING; Start 09/06 at 22:30 Sucralfate (Carafate Susp) 1 gm BID GTB Last administered on 09/21/16 08:22; Admin Dose 1 GM; Start 09/07/16 at 09:00 Ondansetron HCl (Zofran Inj) 4 mg Q6H PRN IV NAUSEA AND/OR VOMITING Last administered on 09/17/16 00:52; Admin Dose 4 MG; Start 09/06/16 at 22:30 Morphine Sulfate (morphine) 2 mg Q4H PRN IV PAIN LEVEL 7-10 Last administered on 09/16/16 20:19; Admin Dose 2 MG; Start 09/06/16 at 22:30 Metoclopramide HCl (Reglan) 5 mg Q6H PRN IV RESIDUALS > 100; Start 09/10/16 at 19:00 Clonidine (Catapres) 0.1 mg Q6H PRN GTB ELEVATED SYSTOLIC BP Last administered on 09/15/16 07:04; Admin Dose 0.1 MG; Start 09/13/16 at 23:00 Hydralazine HCl (Apresoline) 10 mg Q6H PRN IV ELEVATED SYSTOLIC BP Last administered on 09/15/16 02:08; Admin Dose 10 MG; Start 09/15/16 at 01:50 Collagenase (Santyl) 1 applic DAILY TOP Last administered on 09/21/16 08:23; Admin Dose 1 APPLIC; Start 09/18/16 at 09:00 Glycopyrrolate (Robinul) 1 mg Q8 GTB Last administered on 09/21/16 06:10; Admin Dose 1 MG; Start 09/19/16 at 09:30 QUIN ORTIZ Sep 21, 2016 14:45
[2016-09-22] VITALS (28 sets, daily range): BP systolic 78–171; BP diastolic 34–96; PULSE 93–106; RESP 14–22
[2016-09-22] MEDS: LEVALBUTEROL (HFA) 15 GM INHALER INH SCH ×4 (01:08→20:38)
[2016-09-22] MEDS: IPRATROPIUM (HFA) 12.9 GM INHALER INH SCH ×4 (01:08→20:38)
[2016-09-22] MEDS: LANSOPRAZOLE 30 MG CAP GTB SCH ×2 (05:20→17:53)
[2016-09-22] MEDS: GLYCOPYRROLATE 1 MG TAB GTB SCH ×3 (05:20→20:54)
[2016-09-22 07:17] LABS: ADD SCAN DIFF NO
[2016-09-22 07:19] LABS: ABNORMAL IP MESSAGE 1; BASOPHILS % 0.1 % (0.0-2.0); EOSINOPHILS # 0.1 10^3/ul (0.0-0.5); EOSINOPHILS % 1.2 % (0.0-7.0); HEMATOCRIT 27.6 % (42.0-52.0); HEMOGLOBIN 8.7 g/dl (14.0-18.0); LYMPHOCYTES # 0.4 10^3/ul (0.8-2.9); LYMPHOCYTES % 5.3 % (15.0-51.0); MEAN CORPUSCULAR HEMOGLOBIN 29.9 pg (29.0-33.0); MEAN CORPUSCULAR HGB CONC 31.5 g/dl (32.0-37.0); MEAN CORPUSCULAR VOLUME 94.8 fl (82.0-101.0); MEAN PLATELET VOLUME 11.2 fl (7.4-10.4); MONOCYTE # 0.8 10^3/ul (0.3-0.9); MONOCYTES % 10.7 % (0.0-11.0); NEUTROPHIL # 6.1 10^3/ul (1.6-7.5); NEUTROPHILS % 82.2 % (39.0-77.0); PLATELET COUNT 55 10^3/UL (140-415); RED BLOOD COUNT 2.91 10^6/ul (4.70-6.10); RED CELL DISTRIBUTION WIDTH 17.2 % (11.5-14.5); WHITE BLOOD COUNT 7.4 10^3/ul (4.8-10.8)
[2016-09-22 07:41] LABS: POTASSIUM 3.7 mmol/L (3.5-5.1)
[2016-09-22 07:44] LABS: CREATININE 2.41 mg/dl (0.61-1.24)
[2016-09-22] MEDS: ALLOPURINOL 100 MG TAB GTB SCH (10:11)
[2016-09-22] MEDS: CHLORHEXIDINE GLUCONATE 15 ML UD CUP MM SCH ×2 (10:11→20:53)
[2016-09-22] MEDS: CALCITRIOL 0.25 MCG CAP GTB SCH (10:11)
[2016-09-22] MEDS: SUCRALFATE (100 MG/ML) 10ML CUP GTB SCH ×2 (10:11→20:53)
[2016-09-22] MEDS: ASCORBIC ACID 500 MG TAB GTB SCH ×2 (10:11→20:53)
[2016-09-22] MEDS: LEVETIRACETAM (100 MG/ML) 5ML CUP GTB SCH ×2 (10:11→20:53)
[2016-09-22] MEDS: COLLAGENASE 30 GM TUBE TOP SCH (10:14)
[2016-09-22 10:38] LABS: ANISOCYTOSIS 1+; PLATELET ESTIMATE PLT APPEAR DECREASED
[2016-09-22] MEDS: SEVELAMER CARBONATE 2.4 GM PKT GTB SCH ×3 (11:11→17:53)
[2016-09-22] MEDS: FAMOTIDINE 20 MG TAB GTB SCH (11:57)
--- NOTE | 2016-09-22 12:18 | CONS ---
Date/Time of Note Date/Time of Note DATE: 09/22/16 TIME: 12:17 Assessment/Plan Assessment/Plan Additional Assessment/Plan 1. Acute kidney injury on possible chronic kidney disease unknown stage secondary to severe prerenal azotemia causing ischemic acute tubular necrosis in the setting of severe anemia. 2. Severe anemia,s/p PRBC 3. Chronic respiratory failure, status post tracheostomy, on vent. 4. Pancytopenia. 5. History of a seizure disorder. 6. Possible concern about septic shock. PLAN: - will plan for HD today, tPA placed in HD catheter Us showed kidneys are small in size and increased echogenicity c/w chronic medical renal disease will continue to follow Total Time spent in Patient follow up assessment, Updating patient/Family and Communicating with Nursing staff is >45 minutes Consultation Date/Type/Reason Admit Date/Time Sep 06, 2016 at 22:27 Initial Consult Date Aug Type of Consultation: NEPHROLOGY Reason for Consultation MICHELLE with uremic complications, started on HD Referring Provider: FREDDY COELLO MD 24 HR Interval Summary Free Text/Dictation started on HD, plan for HD today, yesterday tPA was placed in litzy, pt stable on ventilator Exam/Review of Systems Vital Signs Vitals Vital Signs Date Time Temp Pulse Resp B/P Pulse Ox O2 Delivery O2 Flow Rate FiO2 09/22/16 12:02 99.8 73 18 168/78 98 09/22/16 11:30 40 Intake and Output 09/21/16 09/21/16 09/22/16 15:00 23:00 07:00 Output Total 100 ml Balance -100 ml Exam NECK: Tracheostomy present HEART: Regular rhythm. CHEST: Breath sounds are heard bilaterally, diminished in both the lower lung [place] with a few intermittent rales and rhonchi. ABDOMEN: Soft. He is tolerating gastrostomy tube feedings. No vomiting has been reported. No distention is seen. EXTREMITIES: Show muscle wasting and spasticity. + litzy Catheter Results Result Diagram: 09/22/16 0555 09/22/16 0555 Results 24 hrs Laboratory Tests Test 09/22/16 05:55 Anion Gap 12 Anisocytosis 1+ Basophils # 0.0 Basophils % 0.1 Blood Urea Nitrogen 79 H Calcium Level 8.0 L Carbon Dioxide Level 29 Chloride Level 98 Creatinine 2.41 H Eosinophils # 0.1 Eosinophils % 1.2 Glucose Level 63 #L Hematocrit 27.6 L Hemoglobin 8.7 L Lymphocytes # 0.4 L Lymphocytes % 5.3 L Mean Corpuscular Hemoglobin 29.9 Mean Corpuscular Hemoglobin Concent 31.5 L Mean Corpuscular Volume 94.8 Mean Platelet Volume 11.2 H Monocytes # 0.8 Monocytes % 10.7 Neutrophils # 6.1 Neutrophils % 82.2 H Nucleated Red Blood Cells # 0.0 Nucleated Red Blood Cells % 0.0 Platelet Count 55 L Platelet Estimate PLT APPEAR DECREASED Potassium Level 3.7 Red Blood Count 2.91 L Red Cell Distribution Width 17.2 H Sodium Level 135 White Blood Count 7.4 Medications Medications Current Medications Acetaminophen (Tylenol Liquid) 640 mg Q6H PRN GTB PAIN OR TEMP ABOVE 38C; Start 09/06/16 at 22:30 Allopurinol (Zyloprim) 200 mg DAILY GTB Last administered on 09/22/16 10:11; Admin Dose 200 MG; Start 09/07/16 at 09:00 Ascorbic Acid (Vitamin C) 500 mg BID GTB Last administered on 09/22/16 10:11; Admin Dose 500 MG; Start 09/07/16 at 09:00 Calcitriol (Rocaltrol) 0.25 mcg DAILY GTB Last administered on 09/22/16 10:11 ; Admin Dose 0.25 MCG; Start 09/07/16 at 09:00 Chlorhexidine Gluconate (Peridex) 15 ml BID MM Last administered on 09/22/16 10:11; Admin Dose 15 ML; Start 09/07/16 at 09:00 Famotidine (Pepcid) 40 mg DAILY GTB Last administered on 09/22/16 11:57; Admin Dose 40 MG; Start 09/07/16 at 09:00 Lansoprazole (Prevacid) 30 mg BID@18 GTB Last administered on 09/22/16 05: 20; Admin Dose 30 MG; Start 09/07/16 at 06:00 Levetiracetam (Keppra Liquid) 500 mg BID GTB Last administered on 09/22/16 10: 11; Admin Dose 500 MG; Start 09/07/16 at 09:00 Metoclopramide HCl (Reglan) 5 mg Q8H PRN GTB NAUSEA AND/OR VOMITING; Start 09/06 at 22:30 Sucralfate (Carafate Susp) 1 gm BID GTB Last administered on 09/22/16 10:11; Admin Dose 1 GM; Start 09/07/16 at 09:00 Ondansetron HCl (Zofran Inj) 4 mg Q6H PRN IV NAUSEA AND/OR VOMITING Last administered on 09/17/16 00:52; Admin Dose 4 MG; Start 09/06/16 at 22:30 Morphine Sulfate (morphine) 2 mg Q4H PRN IV PAIN LEVEL 7-10 Last administered on 09/16/16 20:19; Admin Dose 2 MG; Start 09/06/16 at 22:30 Metoclopramide HCl (Reglan) 5 mg Q6H PRN IV RESIDUALS > 100; Start 09/10/16 at 19:00 Clonidine (Catapres) 0.1 mg Q6H PRN GTB ELEVATED SYSTOLIC BP Last administered on 09/15/16 07:04; Admin Dose 0.1 MG; Start 09/13/16 at 23:00 Hydralazine HCl (Apresoline) 10 mg Q6H PRN IV ELEVATED SYSTOLIC BP Last administered on 09/15/16 02:08; Admin Dose 10 MG; Start 09/15/16 at 01:50 Collagenase (Santyl) 1 applic DAILY TOP Last administered on 09/22/16 10:14; Admin Dose 1 APPLIC; Start 09/18/16 at 09:00 Glycopyrrolate (Robinul) 1 mg Q8 GTB Last administered on 09/22/16 05:20; Admin Dose 1 MG; Start 09/19/16 at 09:30 KEINA TURCIOS MD Sep 22, 2016 12:18
--- NOTE | 2016-09-22 12:43 | PN ---
DATE: 09/22/2016 SUBJECTIVE: The patient's general condition is same. He is mostly noncognitive. There is no eye op ening, he does not follow any commands. He is breathing comfortably with the ventilator support. VITAL SIGNS: Show temperature 99.8, blood pressure 168/78, pulse rate of 73, respirations 18, pulse oximetry 98% saturation. NECK: Tracheal secretions are clear. No bleeding is seen. HEART: Regular rhythm. CHEST: Breath sounds are heard bilaterally, diminished in lung bases but otherwise clear. ABDOMEN: Soft, not distended. He is tolerating tube feedings. Bowel sounds are present. EXTREMITIES: Show generalized edema but seems to be getting better with the dialysis. LABORATORY DATA: From today shows sodium 135, potassium 3.7, bicarbonate of 29, BUN 79, creatinine 2.41, slightly high, increased from 2 days earlier. The CBC shows a WBC 7400, hemoglobin 8.7, hemat ocrit is 27.6, platelets are still decreased at 55,000. IMPRESSION: 1. Sepsis syndrome, improving. 2. Chronic respiratory failure, ventilator dependent. 3. Acute renal failure on dialysis. 4. History of seizure disorder. 5. Chronic encephalopathy. 6. Pancytopenia. RECOMMENDATIONS: 1. Continue long-term ventilator support. 2. Continue dialysis. He is scheduled to have dialysis this afternoon. 3. Continue G-tube feedings and hydration. 4. Continue supportive therapy. 5. He has been off antibiotics for the last few days. Dictated By: VEENA STREETER MD SR/NTS Conf#: [id number] DID#: [id number]
--- NOTE | 2016-09-22 14:51 | PN ---
Date/Time of Note Date/Time of Note DATE: 09/22/16 TIME: 14:49 Assessment/Plan VTE Prophylaxis VTE Prophylaxis Intervention: other Lines/Catheters [facility] Dewey Urinary Cath still in place: Yes Reason Cath still needed: urinary retention Assessment/Plan Assessment/Plan 1. Severe anemia 2 GI bleed. Continue to monitor hemoglobin and hematocrit. - per Dr. Singh is following in gastroenterology consultation. 2. Hypovolemic shock, resolved. 3. Acute kidney failure on chronic kidney disease. Continue to monitor BUN and creatinine. - per Dr. Mk Purdy in nephrology consultation. Patient with worsening renal function. Started on Hemodialysis during this admission. 4. Pancytopenia. 5. Ventilator-dependent respiratory failure. 6. Possible healthcare-acquired pneumonia. - per Dr. Aragon in pulmonology consultation. Continue ventilator support, bronchodilators. Status post treatment. 7. Dysphagia with PEG. 8. History of seizure disorder. Continue patient on Keppra. 9. Diastolic dysfunction congestive heart failure with preserved ejection fraction of 60%. 10. S/p sepsis. - per Dr. Guy in infectious disease consultation. 11. Status post cerebrovascular accident, status post craniotomy. 12. Mental retardation. Continue Protonix for peptic ulcer disease prophylaxis. Further recommendations based on clinical course. Plan of care discussed with Dr. Mcelroy. Subjective 24 Hr Interval Summary Free Text/Dictation NAD, seems comfrotable, having hemodialysis- tolerates well, tolerating GT feeding, bp Constitutional: requiring IVF, requiring O2 Exam/Review of Systems Vital Signs Vitals Vital Signs Date Time Temp Pulse Resp B/P Pulse Ox O2 Delivery O2 Flow Rate FiO2 09/22/16 14:00 96 09/22/16 13:20 16 98 40 09/22/16 12:02 99.8 168/78 Intake and Output 09/21/16 09/21/16 09/22/16 15:00 23:00 07:00 Output Total 100 ml Balance -100 ml Exam Constitutional: non-verbal Eyes: nl sclera ENMT: nl external ears & nose Neck: non-tender Respiratory: diminished breath sounds Cardiovascular: nl pulses Gastrointestinal: non-tender, soft Musculoskeletal: muscle weakness Extremities: normal pulses Neurological: lethargic Lymph: nontender Results Result Diagram: 2/25/17 0555 2/25/17 0555 Results 24 hrs Laboratory Tests Test 09/22/16 05:55 Anion Gap 12 Anisocytosis 1+ Basophils # 0.0 Basophils % 0.1 Blood Urea Nitrogen 79 H Calcium Level 8.0 L Carbon Dioxide Level 29 Chloride Level 98 Creatinine 2.41 H Eosinophils # 0.1 Eosinophils % 1.2 Glucose Level 63 #L Hematocrit 27.6 L Hemoglobin 8.7 L Lymphocytes # 0.4 L Lymphocytes % 5.3 L Mean Corpuscular Hemoglobin 29.9 Mean Corpuscular Hemoglobin Concent 31.5 L Mean Corpuscular Volume 94.8 Mean Platelet Volume 11.2 H Monocytes # 0.8 Monocytes % 10.7 Neutrophils # 6.1 Neutrophils % 82.2 H Nucleated Red Blood Cells # 0.0 Nucleated Red Blood Cells % 0.0 Platelet Count 55 L Platelet Estimate PLT APPEAR DECREASED Potassium Level 3.7 Red Blood Count 2.91 L Red Cell Distribution Width 17.2 H Sodium Level 135 White Blood Count 7.4 Medications Medications Current Medications Acetaminophen (Tylenol Liquid) 640 mg Q6H PRN GTB PAIN OR TEMP ABOVE 38C; Start 09/06/16 at 22:30 Allopurinol (Zyloprim) 200 mg DAILY GTB Last administered on 09/22/16 10:11; Admin Dose 200 MG; Start 09/07/16 at 09:00 Ascorbic Acid (Vitamin C) 500 mg BID GTB Last administered on 09/22/16 10:11; Admin Dose 500 MG; Start 09/07/16 at 09:00 Calcitriol (Rocaltrol) 0.25 mcg DAILY GTB Last administered on 09/22/16 10:11 ; Admin Dose 0.25 MCG; Start 09/07/16 at 09:00 Chlorhexidine Gluconate (Peridex) 15 ml BID MM Last administered on 09/22/16 10:11; Admin Dose 15 ML; Start 09/07/16 at 09:00 Famotidine (Pepcid) 40 mg DAILY GTB Last administered on 09/22/16 11:57; Admin Dose 40 MG; Start 09/07/16 at 09:00 Lansoprazole (Prevacid) 30 mg BID@,18 GTB Last administered on 09/22/16 05: 20; Admin Dose 30 MG; Start 09/07/16 at 06:00 Levetiracetam (Keppra Liquid) 500 mg BID GTB Last administered on 09/22/16 10: 11; Admin Dose 500 MG; Start 09/07/16 at 09:00 Metoclopramide HCl (Reglan) 5 mg Q8H PRN GTB NAUSEA AND/OR VOMITING; Start 09/06 at 22:30 Sucralfate (Carafate Susp) 1 gm BID GTB Last administered on 09/22/16 10:11; Admin Dose 1 GM; Start 09/07/16 at 09:00 Ondansetron HCl (Zofran Inj) 4 mg Q6H PRN IV NAUSEA AND/OR VOMITING Last administered on 09/17/16 00:52; Admin Dose 4 MG; Start 09/06/16 at 22:30 Morphine Sulfate (morphine) 2 mg Q4H PRN IV PAIN LEVEL 7-10 Last administered on 09/16/16 20:19; Admin Dose 2 MG; Start 09/06/16 at 22:30 Metoclopramide HCl (Reglan) 5 mg Q6H PRN IV RESIDUALS > 100; Start 09/10/16 at 19:00 Clonidine (Catapres) 0.1 mg Q6H PRN GTB ELEVATED SYSTOLIC BP Last administered on 09/15/16 07:04; Admin Dose 0.1 MG; Start 09/13/16 at 23:00 Hydralazine HCl (Apresoline) 10 mg Q6H PRN IV ELEVATED SYSTOLIC BP Last administered on 09/15/16 02:08; Admin Dose 10 MG; Start 09/15/16 at 01:50 Collagenase (Santyl) 1 applic DAILY TOP Last administered on 09/22/16 10:14; Admin Dose 1 APPLIC; Start 09/18/16 at 09:00 Glycopyrrolate (Robinul) 1 mg Q8 GTB Last administered on 09/22/16 14:40; Admin Dose 1 MG; Start 09/19/16 at 09:30 KRISTOPHER SOTO Sep 22, 2016 14:51
[2016-09-23] VITALS (25 sets, daily range): BP systolic 116–164; BP diastolic 56–82; PULSE 91–118; RESP 14–25
[2016-09-23] MEDS: LEVALBUTEROL (HFA) 15 GM INHALER INH SCH ×4 (02:22→20:50)
[2016-09-23] MEDS: IPRATROPIUM (HFA) 12.9 GM INHALER INH SCH ×4 (02:22→20:50)
[2016-09-23] MEDS: GLYCOPYRROLATE 1 MG TAB GTB SCH ×3 (05:01→21:20)
[2016-09-23] MEDS: LANSOPRAZOLE 30 MG CAP GTB SCH ×2 (05:01→17:27)
[2016-09-23 07:45] LABS: ALBUMIN 1.8 g/dl (3.3-4.9); POTASSIUM 3.8 mmol/L (3.5-5.1)
[2016-09-23 07:48] LABS: ALBUMIN/GLOBULIN RATIO 0.43; CREATININE 2.2 mg/dl (0.61-1.24); TOTAL PROTEIN 5.9 g/dl (6.1-8.1)
[2016-09-23 07:49] LABS: CALCIUM 7.8 mg/dl (8.4-10.2)
[2016-09-23] MEDS: CALCITRIOL 0.25 MCG CAP GTB SCH (08:17)
[2016-09-23] MEDS: ALLOPURINOL 100 MG TAB GTB SCH (08:17)
[2016-09-23] MEDS: FAMOTIDINE 20 MG TAB GTB SCH (08:17)
[2016-09-23] MEDS: ASCORBIC ACID 500 MG TAB GTB SCH ×2 (08:17→21:20)
[2016-09-23] MEDS: SEVELAMER CARBONATE 2.4 GM PKT GTB SCH ×3 (08:17→17:27)
[2016-09-23] MEDS: SUCRALFATE (100 MG/ML) 10ML CUP GTB SCH ×2 (08:17→21:19)
[2016-09-23] MEDS: LEVETIRACETAM (100 MG/ML) 5ML CUP GTB SCH ×2 (08:17→21:19)
[2016-09-23] MEDS: CHLORHEXIDINE GLUCONATE 15 ML UD CUP MM SCH ×2 (08:17→21:20)
[2016-09-23] MEDS: COLLAGENASE 30 GM TUBE TOP SCH ×2 (10:23→17:17)
--- NOTE | 2016-09-23 11:16 | CONS ---
Date/Time of Note Date/Time of Note DATE: 09/23/16 TIME: 11:12 Assessment/Plan Assessment/Plan Additional Assessment/Plan 1. Acute kidney injury on possible chronic kidney disease unknown stage secondary to severe prerenal azotemia causing ischemic acute tubular necrosis in the setting of severe anemia.- continue to have Anuria with uremic symptoms and GI bleeding- started on HD during this admission 2. Severe anemia,s/p PRBC 3. Chronic respiratory failure, status post tracheostomy, on vent. 4. Pancytopenia. 5. History of a seizure disorder. PLAN: - Dewey Catheter did not work well despite using tPA- will request to do permacath catheter Us showed kidneys are small in size and increased echogenicity c/w chronic medical renal disease will continue to follow Total Time spent in Patient follow up assessment, Updating patient/Family and Communicating with Nursing staff is >45 minutes Consultation Date/Type/Reason Admit Date/Time Sep 06, 2016 at 22:27 Initial Consult Date Aug Type of Consultation: NEPHROLOGY Reason for Consultation Oliguric MICHELLE with uremic symptoms - progressed to ESRD started on HD, Referring Provider: FREDDY COELLO MD 24 HR Interval Summary Free Text/Dictation s/p HD yesteday, catheter did not work well, very poor flow Exam/Review of Systems Vital Signs Vitals Vital Signs Date Time Temp Pulse Resp B/P Pulse Ox O2 Delivery O2 Flow Rate FiO2 09/23/16 09:20 98 18 100 50 09/23/16 08:10 99.8 117/66 09/22/16 21:05 Mechanical Ventilator Intake and Output 09/22/16 09/22/16 09/23/16 15:00 23:00 07:00 Intake Total 400 ml 585 ml Output Total 1200 ml 900 ml Balance -800 ml -315 ml Results Result Diagram: 09/22/16 0555 09/23/16 0610 Results 24 hrs Laboratory Tests Test 09/23/16 06:10 Alanine Aminotransferase (ALT/SGPT) 19 Albumin 1.8 L Albumin/Globulin Ratio 0.43 Alkaline Phosphatase 141 H Anion Gap 10 Aspartate Amino Transf (AST/SGOT) 18 Blood Urea Nitrogen 75 H Calcium Level 7.8 L Carbon Dioxide Level 31 Chloride Level 96 L Creatinine 2.20 H Direct Bilirubin 0.00 Globulin 4.10 H Glucose Level 85 Indirect Bilirubin 0.0 Potassium Level 3.8 Sodium Level 133 L Total Bilirubin 0.0 L Total Protein 5.9 L Medications Medications Current Medications Acetaminophen (Tylenol Liquid) 640 mg Q6H PRN GTB PAIN OR TEMP ABOVE 38C; Start 09/06/16 at 22:30 Allopurinol (Zyloprim) 200 mg DAILY GTB Last administered on 09/23/16 08:17; Admin Dose 200 MG; Start 09/07/16 at 09:00 Ascorbic Acid (Vitamin C) 500 mg BID GTB Last administered on 09/23/16 08:17; Admin Dose 500 MG; Start 09/07/16 at 09:00 Calcitriol (Rocaltrol) 0.25 mcg DAILY GTB Last administered on 09/23/16 08:17 ; Admin Dose 0.25 MCG; Start 09/07/16 at 09:00 Chlorhexidine Gluconate (Peridex) 15 ml BID MM Last administered on 09/23/16 08:17; Admin Dose 15 ML; Start 09/07/16 at 09:00 Famotidine (Pepcid) 40 mg DAILY GTB Last administered on 09/23/16 08:17; Admin Dose 40 MG; Start 09/07/16 at 09:00 Lansoprazole (Prevacid) 30 mg BID@18 GTB Last administered on 09/23/16 05: 01; Admin Dose 30 MG; Start 09/07/16 at 06:00 Levetiracetam (Keppra Liquid) 500 mg BID GTB Last administered on 09/23/16 08: 17; Admin Dose 500 MG; Start 09/07/16 at 09:00 Metoclopramide HCl (Reglan) 5 mg Q8H PRN GTB NAUSEA AND/OR VOMITING; Start 09/06 at 22:30 Sucralfate (Carafate Susp) 1 gm BID GTB Last administered on 09/23/16 08:17; Admin Dose 1 GM; Start 09/07/16 at 09:00 Ondansetron HCl (Zofran Inj) 4 mg Q6H PRN IV NAUSEA AND/OR VOMITING Last administered on 09/17/16 00:52; Admin Dose 4 MG; Start 09/06/16 at 22:30 Morphine Sulfate (morphine) 2 mg Q4H PRN IV PAIN LEVEL 7-10 Last administered on 09/16/16 20:19; Admin Dose 2 MG; Start 09/06/16 at 22:30 Metoclopramide HCl (Reglan) 5 mg Q6H PRN IV RESIDUALS > 100; Start 09/10/16 at 19:00 Clonidine (Catapres) 0.1 mg Q6H PRN GTB ELEVATED SYSTOLIC BP Last administered on 09/15/16 07:04; Admin Dose 0.1 MG; Start 09/13/16 at 23:00 Hydralazine HCl (Apresoline) 10 mg Q6H PRN IV ELEVATED SYSTOLIC BP Last administered on 09/15/16 02:08; Admin Dose 10 MG; Start 09/15/16 at 01:50 Collagenase (Santyl) 1 applic DAILY TOP Last administered on 09/22/16 10:14; Admin Dose 1 APPLIC; Start 09/18/16 at 09:00 Glycopyrrolate (Robinul) 1 mg Q8 GTB Last administered on 09/23/16 05:01; Admin Dose 1 MG; Start 09/19/16 at 09:30 KENIA TURCIOS MD Sep 23, 2016 11:16
--- NOTE | 2016-09-23 15:28 | PN ---
DATE: 09/23/2016 SUBJECTIVE: The patient's condition is same. He looks more awake, but he does not followup. He is on ventilato r support, and his is breathing appears unlabored. VITAL SIGNS: Show temperature 99.8, blood pressure 400, 117/66, pulse rate of 102, respirations 18, pulse oximetry 99% saturation. NECK: Tracheal secretions are clear. No bleeding is seen. HEART: Regular rhythm. CHEST: Breath sounds are diminished in the lower lung [place], otherwise clear. ABDOMEN: Soft, not distended. He is tolerating gastrostomy tube feedings. EXTREMITIES: Show edema seems to be improving. SCDs are applied to both the legs. LABORATORY DATA: Show sodium 133, potassium 3.8, BUN is 75, creatinine 2.2, glucose 85. No CBC fro m today. IMPRESSION: 1. Sepsis syndrome, improving. 2. Chronic respiratory failure, ventilator dependent. 3. Acute renal failure on dialysis. 4. History of seizure disorder. 5. Chronic encephalopathy. 6. Pancytopenia. RECOMMENDATIONS: 1. Continue long-term ventilator support. 2. Continue dialysis. 3. Continue G-tube feedings and hydration. 4. Continue supportive therapy. Dictated By: VEENA STREETER MD SR/NIKOLAI Conf#: [id number] DID#: [id number]
--- NOTE | 2016-09-23 15:54 | CONS ---
Date/Time of Note Date/Time of Note DATE: 09/23/16 TIME: 15:48 Assessment/Plan Assessment/Plan Chief Complaint/Hosp Course ID PROGRESS NOTE TOTAL ABX DAY # OFF ABX X 9 days s/p Cefepime + Vanco IV 24H INTERVAL SUMMARY * Clinically status quo -- chronic debilitated obese M, Noncommunicative, VSS, NAD * Low grade temps - Tmax 99.4 over past 48H * Trach, peg, Left IJ TLC, multiple decubs noted and photos reviewed Thanh: 09/21/16 Rcvd: 09/21/16 Source: TROCHANTER Sp Descrip: Microbiology WOUND CULTURE Preliminary Organism 1 KLEB PNEUMONIAE CARBAPENEMASE QUANTITY 2+ . MULTI DRUG RESISTANT ORGANISM Organism 2 NON LACTOSE FERMENTING GNR QUANTITY 3+ Organism 3 MORGANELLA MORGANII SSP MORG. QUANTITY 2+ PHONED TO MARCOS WHITFIELD, TEL, [place], PHARM AND A COPY TO AT 1040 09/23/16 BY AD. POWELL PNEUM MORMOSP [facility].I.[facility]. RX M.I.C. RX --------- --- --------- --- AMIKACIN 32 I <=2 S CEFAZOLIN R CEFEPIME >=64 R <=1 S CEFOTAXIME R R CIPROFLOXACIN >=4 R >=4 R GENTAMICIN >=16 R 8 I IMIPENEM >=16 R 4 R LEVOFLOXACIN >=8 R >=8 R TOBRAMYCIN >=16 R 2 S TRIMETHOPRIM/SULFAMETHOXAZOLE >=320 R >=320 R PIPERACILLIN/TAZOBACTAM >=128 R PHYSICAL EXAMINATION: GENERAL: VSS, NAD HEENT: Unremarkable NECK: Trach-> Vent secure CHEST: Rise symmetrical - Course BS HEART: RRR ABDOMEN: Soft, EXTREMITIES: Warm, ID ASSESSMENT: 56 yo M w/multiple co-morbid conditions admit with: 1. Hypovolemia w/hypotension due to gastrointestinal bleeding due to thrombocytopenia => RESOLVED 2. High output congestive heart failure. 3. Azotemia. 4. Stage IV chronic kidney disease. 5. Pancytopenia. 6. Vent-dependent respiratory failure. 7. Dysphagia/old cerebrovascular accident. 8. Decubitus ulcers, bilateral trochanteric, heels, back * 09/21/16 TROCHANTER WOUND CX: WOUND CULTURE Preliminary Organism 1 KLEB PNEUMONIAE CARBAPENEMASE QUANTITY 2+ . MULTI DRUG RESISTANT ORGANISM Organism 2 NON LACTOSE FERMENTING GNR QUANTITY 3+ Organism 3 MORGANELLA MORGANII SSP MORG. QUANTITY 2+ 9. Seizure disorder. 10. Gout. (-)MRSA Nares INVASIVES: *Trach, Peg, FC, L-IJ TLC ABX ALLERGIES: PCN, Macrolides, Erythromycin base CURRENT ABX: OFF ABX x 9 days S/P Cefepime + Vanco IV ID RECOMMENDATIONS: Continue current ABX, non-aggressive care His wounds are growing CRKP with is MDRO and best treated topically . . Problems: Consultation Date/Type/Reason Admit Date/Time Sep 06, 2016 at 22:27 Initial Consult Date 09/07/16 Type of Consultation: ID Referring Provider: FREDDY COELLO MD Exam/Review of Systems Vital Signs Vitals Vital Signs Date Time Temp Pulse Resp B/P Pulse Ox O2 Delivery O2 Flow Rate FiO2 09/23/16 15:00 110 14 98 45 09/23/16 12:02 98.6 131/65 09/22/16 21:05 Mechanical Ventilator Intake and Output 09/22/16 09/22/16 09/23/16 15:00 23:00 07:00 Intake Total 400 ml 585 ml Output Total 1200 ml 900 ml Balance -800 ml -315 ml Results Result Diagram: 09/22/16 0555 09/23/16 0610 Results 24 hrs Laboratory Tests Test 09/23/16 06:10 Alanine Aminotransferase (ALT/SGPT) 19 Albumin 1.8 L Albumin/Globulin Ratio 0.43 Alkaline Phosphatase 141 H Anion Gap 10 Aspartate Amino Transf (AST/SGOT) 18 Blood Urea Nitrogen 75 H Calcium Level 7.8 L Carbon Dioxide Level 31 Chloride Level 96 L Creatinine 2.20 H Direct Bilirubin 0.00 Globulin 4.10 H Glucose Level 85 Indirect Bilirubin 0.0 Potassium Level 3.8 Sodium Level 133 L Total Bilirubin 0.0 L Total Protein 5.9 L Medications Medications Current Medications Acetaminophen (Tylenol Liquid) 640 mg Q6H PRN GTB PAIN OR TEMP ABOVE 38C; Start 09/06/16 at 22:30 Allopurinol (Zyloprim) 200 mg DAILY GTB Last administered on 09/23/16 08:17; Admin Dose 200 MG; Start 09/07/16 at 09:00 Ascorbic Acid (Vitamin C) 500 mg BID GTB Last administered on 09/23/16 08:17; Admin Dose 500 MG; Start 09/07/16 at 09:00 Calcitriol (Rocaltrol) 0.25 mcg DAILY GTB Last administered on 09/23/16 08:17 ; Admin Dose 0.25 MCG; Start 09/07/16 at 09:00 Chlorhexidine Gluconate (Peridex) 15 ml BID MM Last administered on 09/23/16 08:17; Admin Dose 15 ML; Start 09/07/16 at 09:00 Famotidine (Pepcid) 40 mg DAILY GTB Last administered on 09/23/16 08:17; Admin Dose 40 MG; Start 09/07/16 at 09:00 Lansoprazole (Prevacid) 30 mg BID@18 GTB Last administered on 09/23/16 05: 01; Admin Dose 30 MG; Start 09/07/16 at 06:00 Levetiracetam (Keppra Liquid) 500 mg BID GTB Last administered on 09/23/16 08: 17; Admin Dose 500 MG; Start 09/07/16 at 09:00 Metoclopramide HCl (Reglan) 5 mg Q8H PRN GTB NAUSEA AND/OR VOMITING; Start 09/06 at 22:30 Sucralfate (Carafate Susp) 1 gm BID GTB Last administered on 09/23/16 08:17; Admin Dose 1 GM; Start 09/07/16 at 09:00 Ondansetron HCl (Zofran Inj) 4 mg Q6H PRN IV NAUSEA AND/OR VOMITING Last administered on 09/17/16 00:52; Admin Dose 4 MG; Start 09/06/16 at 22:30 Morphine Sulfate (morphine) 2 mg Q4H PRN IV PAIN LEVEL 7-10 Last administered on 09/16/16 20:19; Admin Dose 2 MG; Start 09/06/16 at 22:30 Metoclopramide HCl (Reglan) 5 mg Q6H PRN IV RESIDUALS > 100; Start 09/10/16 at 19:00 Clonidine (Catapres) 0.1 mg Q6H PRN GTB ELEVATED SYSTOLIC BP Last administered on 09/15/16 07:04; Admin Dose 0.1 MG; Start 09/13/16 at 23:00 Hydralazine HCl (Apresoline) 10 mg Q6H PRN IV ELEVATED SYSTOLIC BP Last administered on 09/15/16 02:08; Admin Dose 10 MG; Start 09/15/16 at 01:50 Collagenase (Santyl) 1 applic DAILY TOP Last administered on 09/22/16 10:14; Admin Dose 1 APPLIC; Start 09/18/16 at 09:00 Glycopyrrolate (Robinul) 1 mg Q8 GTB Last administered on 09/23/16 13:10; Admin Dose 1 MG; Start 09/19/16 at 09:30 IRINA VARGHESE NP Sep 23, 2016 15:54
--- NOTE | 2016-09-23 18:03 | PN ---
Date/Time of Note Date/Time of Note DATE: 09/23/16 TIME: 18:02 Assessment/Plan VTE Prophylaxis VTE Prophylaxis Intervention: other Lines/Catheters IV [facility]from [facility]): PRIYA CATH Urinary Cath still in place: Yes Reason Cath still needed: urinary retention Assessment/Plan Assessment/Plan 1. Severe anemia 2 GI bleed. Continue to monitor hemoglobin and hematocrit. - per Dr. Singh is following in gastroenterology consultation. 2. Hypovolemic shock, resolved. 3. Acute kidney failure on chronic kidney disease. Continue to monitor BUN and creatinine. - per Dr. Mk Purdy in nephrology consultation. Patient with worsening renal function. Started on Hemodialysis during this admission. 4. Pancytopenia. 5. Ventilator-dependent respiratory failure. 6. Possible healthcare-acquired pneumonia. - per Dr. Aragon in pulmonology consultation. Continue ventilator support, bronchodilators. Status post treatment. 7. Dysphagia with PEG. 8. History of seizure disorder. Continue patient on Keppra. 9. Diastolic dysfunction congestive heart failure with preserved ejection fraction of 60%. 10. S/p sepsis. - per Dr. Guy in infectious disease consultation. 11. Status post cerebrovascular accident, status post craniotomy. 12. Mental retardation. Continue Protonix for peptic ulcer disease prophylaxis. Further recommendations based on clinical course. Plan of care discussed with Dr. Mcelroy. Subjective 24 Hr Interval Summary Subjective hx not possible: pt non-verbal Constitutional: requiring IVF, requiring O2 Exam/Review of Systems Vital Signs Vitals Vital Signs Date Time Temp Pulse Resp B/P Pulse Ox O2 Delivery O2 Flow Rate FiO2 09/23/16 17:43 118 118/56 09/23/16 17:20 22 97 45 09/23/16 16:07 98.2 09/22/16 21:05 Mechanical Ventilator Intake and Output 09/22/16 09/22/16 09/23/16 15:00 23:00 07:00 Intake Total 400 ml 585 ml Output Total 1200 ml 900 ml Balance -800 ml -315 ml Exam Psych: nl mood/affect ENMT: nl external ears & nose Neck: non-tender Respiratory: diminished breath sounds, other (trach intact) Cardiovascular: nl pulses Musculoskeletal: muscle weakness Extremities: normal pulses Neurological: unresponsive Skin: other Lymph: nontender Results Result Diagram: 09/22/16 0555 09/23/16 0610 Results 24 hrs Laboratory Tests Test 09/23/16 06:10 Alanine Aminotransferase (ALT/SGPT) 19 Albumin 1.8 L Albumin/Globulin Ratio 0.43 Alkaline Phosphatase 141 H Anion Gap 10 Aspartate Amino Transf (AST/SGOT) 18 Blood Urea Nitrogen 75 H Calcium Level 7.8 L Carbon Dioxide Level 31 Chloride Level 96 L Creatinine 2.20 H Direct Bilirubin 0.00 Globulin 4.10 H Glucose Level 85 Indirect Bilirubin 0.0 Potassium Level 3.8 Sodium Level 133 L Total Bilirubin 0.0 L Total Protein 5.9 L Medications Medications Current Medications Acetaminophen (Tylenol Liquid) 640 mg Q6H PRN GTB PAIN OR TEMP ABOVE 38C; Start 09/06/16 at 22:30 Allopurinol (Zyloprim) 200 mg DAILY GTB Last administered on 09/23/16 08:17; Admin Dose 200 MG; Start 09/07/16 at 09:00 Ascorbic Acid (Vitamin C) 500 mg BID GTB Last administered on 09/23/16 08:17; Admin Dose 500 MG; Start 09/07/16 at 09:00 Calcitriol (Rocaltrol) 0.25 mcg DAILY GTB Last administered on 09/23/16 08:17 ; Admin Dose 0.25 MCG; Start 09/07/16 at 09:00 Chlorhexidine Gluconate (Peridex) 15 ml BID MM Last administered on 09/23/16 08:17; Admin Dose 15 ML; Start 09/07/16 at 09:00 Famotidine (Pepcid) 40 mg DAILY GTB Last administered on 09/23/16 08:17; Admin Dose 40 MG; Start 09/07/16 at 09:00 Lansoprazole (Prevacid) 30 mg BID@,18 GTB Last administered on 09/23/16 17: 27; Admin Dose 30 MG; Start 09/07/16 at 06:00 Levetiracetam (Keppra Liquid) 500 mg BID GTB Last administered on 09/23/16 08: 17; Admin Dose 500 MG; Start 09/07/16 at 09:00 Metoclopramide HCl (Reglan) 5 mg Q8H PRN GTB NAUSEA AND/OR VOMITING; Start 09/06 at 22:30 Sucralfate (Carafate Susp) 1 gm BID GTB Last administered on 09/23/16 08:17; Admin Dose 1 GM; Start 09/07/16 at 09:00 Ondansetron HCl (Zofran Inj) 4 mg Q6H PRN IV NAUSEA AND/OR VOMITING Last administered on 09/17/16 00:52; Admin Dose 4 MG; Start 09/06/16 at 22:30 Morphine Sulfate (morphine) 2 mg Q4H PRN IV PAIN LEVEL 7-10 Last administered on 09/16/16 20:19; Admin Dose 2 MG; Start 09/06/16 at 22:30 Metoclopramide HCl (Reglan) 5 mg Q6H PRN IV RESIDUALS > 100; Start 09/10/16 at 19:00 Clonidine (Catapres) 0.1 mg Q6H PRN GTB ELEVATED SYSTOLIC BP Last administered on 09/15/16 07:04; Admin Dose 0.1 MG; Start 09/13/16 at 23:00 Hydralazine HCl (Apresoline) 10 mg Q6H PRN IV ELEVATED SYSTOLIC BP Last administered on 09/15/16 02:08; Admin Dose 10 MG; Start 09/15/16 at 01:50 Collagenase (Santyl) 1 applic DAILY TOP Last administered on 09/23/16 17:17; Admin Dose 1 APPLIC; Start 09/18/16 at 09:00 Glycopyrrolate (Robinul) 1 mg Q8 GTB Last administered on 09/23/16 13:10; Admin Dose 1 MG; Start 09/19/16 at 09:30 KRISTOPHER SOTO Sep 23, 2016 18:03
[2016-09-24] VITALS (24 sets, daily range): BP systolic 115–126; BP diastolic 57–86; PULSE 90–104; RESP 14–18; Ht 167.6 cm; Wt 99.5 kg
[2016-09-24] MEDS: IPRATROPIUM (HFA) 12.9 GM INHALER INH SCH ×4 (01:53→19:19)
[2016-09-24] MEDS: LEVALBUTEROL (HFA) 15 GM INHALER INH SCH ×4 (01:54→19:19)
[2016-09-24 05:59] LABS: ADD SCAN DIFF NO
[2016-09-24] MEDS: LANSOPRAZOLE 30 MG CAP GTB SCH ×2 (06:00→17:14)
[2016-09-24] MEDS: GLYCOPYRROLATE 1 MG TAB GTB SCH ×3 (06:00→21:20)
[2016-09-24 06:11] LABS: ABNORMAL IP MESSAGE 1; BASOPHILS % 0.2 % (0.0-2.0); EOSINOPHILS # 0.2 10^3/ul (0.0-0.5); EOSINOPHILS % 1.5 % (0.0-7.0); HEMATOCRIT 23.3 % (42.0-52.0); HEMOGLOBIN 7.6 g/dl (14.0-18.0); LYMPHOCYTES # 0.5 10^3/ul (0.8-2.9); LYMPHOCYTES % 5.1 % (15.0-51.0); MEAN CORPUSCULAR HGB CONC 32.6 g/dl (32.0-37.0); MEAN CORPUSCULAR VOLUME 95.1 fl (82.0-101.0); MEAN PLATELET VOLUME 11.7 fl (7.4-10.4); MONOCYTES % 9.9 % (0.0-11.0); NEUTROPHIL # 8.1 10^3/ul (1.6-7.5); NEUTROPHILS % 82.8 % (39.0-77.0); PLATELET COUNT 67 10^3/UL (140-415); RED BLOOD COUNT 2.45 10^6/ul (4.70-6.10); RED CELL DISTRIBUTION WIDTH 17.1 % (11.5-14.5); WHITE BLOOD COUNT 9.8 10^3/ul (4.8-10.8)
[2016-09-24 06:21] LABS: POTASSIUM 4.2 mmol/L (3.5-5.1)
[2016-09-24 06:24] LABS: CREATININE 2.42 mg/dl (0.61-1.24)
[2016-09-24 06:25] LABS: CALCIUM 7.9 mg/dl (8.4-10.2)
[2016-09-24] MEDS: SEVELAMER CARBONATE 2.4 GM PKT GTB SCH ×3 (08:03→17:14)
[2016-09-24] MEDS: CALCITRIOL 0.25 MCG CAP GTB SCH (09:09)
[2016-09-24] MEDS: FAMOTIDINE 20 MG TAB GTB SCH (09:10)
[2016-09-24] MEDS: LEVETIRACETAM (100 MG/ML) 5ML CUP GTB SCH ×2 (09:10→21:14)
[2016-09-24] MEDS: ALLOPURINOL 100 MG TAB GTB SCH (09:10)
[2016-09-24] MEDS: ASCORBIC ACID 500 MG TAB GTB SCH ×2 (09:10→21:14)
[2016-09-24] MEDS: COLLAGENASE 30 GM TUBE TOP SCH (09:11)
[2016-09-24] MEDS: SUCRALFATE (100 MG/ML) 10ML CUP GTB SCH ×2 (09:11→21:20)
[2016-09-24] MEDS: CHLORHEXIDINE GLUCONATE 15 ML UD CUP MM SCH ×2 (09:11→21:14)
[2016-09-24] MEDS ORDERED: AMIKACIN IV PER PHARMACY XX SCH (14:00)
--- NOTE | 2016-09-24 16:56 | PN ---
DATE: 09/24/2016 SUBJECTIVE: No acute changes. The patient is lying comfortably in bed. He is status post a temperature of 100.2, currently afebrile. Wound culture growing Klebsiella, Pseudomonas, and Morganella morganii species, all multidrug resistant, susceptible to amikacin. INDWELLINGS: Left IJ triple lumen catheter, trach, PEG. PHYSICAL EXAMINATION: GENERAL: This is a well-developed, fragile, chronically ill-appearing, middle- aged man who is lying comfortably in bed. HEENT: Head atraumatic, normocephalic. Sclerae anicteric. Buccal mucosa dry. NECK: Supple. Tracheostomy present. CHEST: Rise symmetrical. Breath sounds diminished. HEART: S1, S2. ABDOMEN: Soft, bowel tones present. EXTREMITIES: Without cyanosis. Contractured. ASSESSMENT: 1. Status post septic shock. 2. Multiple decubitus with wound culture growing multi-drug resistant organisms. 3. Acute on chronic kidney disease, hemodialysis dependent. 4. Encephalopathy. 5. Seizure disorder. 6. ALLERGIC TO ZITHROMAX, ZOSYN, AND ERYTHROMYCIN. PLAN: Patient remains stable. He will require long-term hemodialysis per discussion with Dr. Gurwinder Terrazas, we will start him on IV Amikacin for his wounds. Dictated By: ARUN DIANA [employer]PECTOR [employer] for KAT VYAS/NIKOLAI Conf#: [id number] DID#: [id number]
[2016-09-24] MEDS ORDERED: SOD CHLORIDE 0.9% IVPB SCH (17:00)
[2016-09-24] MEDS ORDERED: AMIKACIN IVPB SCH (17:00)
--- NOTE | 2016-09-24 18:07 | CONS ---
Date/Time of Note Date/Time of Note DATE: 09/24/16 TIME: 18:05 Assessment/Plan Assessment/Plan Additional Assessment/Plan 1. Acute kidney injury on possible chronic kidney disease unknown stage secondary to severe prerenal azotemia causing ischemic acute tubular necrosis in the setting of severe anemia.- continue to have Anuria with uremic symptoms and GI bleeding- started on HD during this admission 2. Severe anemia,s/p PRBC 3. Chronic respiratory failure, status post tracheostomy, on vent. 4. Pancytopenia. 5. History of a seizure disorder. PLAN: - Dewey Catheter did not work well despite using tPA- will request to do permacath catheter Us showed kidneys are small in size and increased echogenicity c/w chronic medical renal disease- pt likely to be terminal gauger HD placement, Hepatitis panel, HIV, Case management for outpatient HD placement HD ordered for tomorrow Total Time spent in Patient follow up assessment, Updating patient/Family and Communicating with Nursing staff is >45 minutes Consultation Date/Type/Reason Admit Date/Time Sep 06, 2016 at 22:27 Initial Consult Date Aug Type of Consultation: NEPHROLOGY Referring Provider: FREDDY COELLO MD 24 HR Interval Summary Free Text/Dictation Plan for HD tomorrow, plan for permacath today Exam/Review of Systems Vital Signs Vitals Vital Signs Date Time Temp Pulse Resp B/P Pulse Ox O2 Delivery O2 Flow Rate FiO2 09/24/16 17:13 95 14 99 45 09/24/16 15:54 98.9 123/59 09/22/16 21:05 Mechanical Ventilator Intake and Output 09/23/16 09/23/16 09/24/16 15:00 23:00 07:00 Intake Total 880 ml 45 ml Output Total 60 ml Balance 820 ml 45 ml Exam GENERAL: This is a well-developed, fragile, chronically ill-appearing, middle- aged man who is lying comfortably in bed. HEENT: Head atraumatic, normocephalic. Sclerae anicteric. Buccal mucosa dry. NECK: Supple. Tracheostomy present. CHEST: Rise symmetrical. Breath sounds diminished. HEART: S1, S2. ABDOMEN: Soft, bowel tones present. EXTREMITIES: Without cyanosis. Contractured. Results Result Diagram: 2/27/17 0515 2/27/17 0515 Results 24 hrs Laboratory Tests Test 09/24/16 05:15 Anion Gap 13 Basophils # 0.0 Basophils % 0.2 Blood Urea Nitrogen 79 H Calcium Level 7.9 L Carbon Dioxide Level 27 Chloride Level 96 L Creatinine 2.42 H Eosinophils # 0.2 Eosinophils % 1.5 Glucose Level 68 #L Hematocrit 23.3 L Hemoglobin 7.6 L Lymphocytes # 0.5 L Lymphocytes % 5.1 L Mean Corpuscular Hemoglobin 31.0 Mean Corpuscular Hemoglobin Concent 32.6 Mean Corpuscular Volume 95.1 Mean Platelet Volume 11.7 H Monocytes # 1.0 H Monocytes % 9.9 Neutrophils # 8.1 H Neutrophils % 82.8 H Nucleated Red Blood Cells # 0.0 Nucleated Red Blood Cells % 0.0 Platelet Count 67 #L Potassium Level 4.2 Red Blood Count 2.45 L Red Cell Distribution Width 17.1 H Sodium Level 132 L White Blood Count 9.8 # Medications Medications Current Medications Acetaminophen (Tylenol Liquid) 640 mg Q6H PRN GTB PAIN OR TEMP ABOVE 38C; Start 09/06/16 at 22:30 Allopurinol (Zyloprim) 200 mg DAILY GTB Last administered on 09/24/16 09:10; Admin Dose 200 MG; Start 09/07/16 at 09:00 Ascorbic Acid (Vitamin C) 500 mg BID GTB Last administered on 09/24/16 09:10; Admin Dose 500 MG; Start 09/07/16 at 09:00 Calcitriol (Rocaltrol) 0.25 mcg DAILY GTB Last administered on 09/24/16 09:09 ; Admin Dose 0.25 MCG; Start 09/07/16 at 09:00 Chlorhexidine Gluconate (Peridex) 15 ml BID MM Last administered on 09/24/16 09:11; Admin Dose 15 ML; Start 09/07/16 at 09:00 Famotidine (Pepcid) 40 mg DAILY GTB Last administered on 09/24/16 09:10; Admin Dose 40 MG; Start 09/07/16 at 09:00 Lansoprazole (Prevacid) 30 mg BID@18 GTB Last administered on 09/24/16 17: 14; Admin Dose 30 MG; Start 09/07/16 at 06:00 Levetiracetam (Keppra Liquid) 500 mg BID GTB Last administered on 09/24/16 09: 10; Admin Dose 500 MG; Start 09/07/16 at 09:00 Metoclopramide HCl (Reglan) 5 mg Q8H PRN GTB NAUSEA AND/OR VOMITING; Start 09/06 at 22:30 Sucralfate (Carafate Susp) 1 gm BID GTB Last administered on 09/24/16 09:11; Admin Dose 1 GM; Start 09/07/16 at 09:00 Ondansetron HCl (Zofran Inj) 4 mg Q6H PRN IV NAUSEA AND/OR VOMITING Last administered on 09/17/16 00:52; Admin Dose 4 MG; Start 09/06/16 at 22:30 Morphine Sulfate (morphine) 2 mg Q4H PRN IV PAIN LEVEL 7-10 Last administered on 09/16/16 20:19; Admin Dose 2 MG; Start 09/06/16 at 22:30 Metoclopramide HCl (Reglan) 5 mg Q6H PRN IV RESIDUALS > 100; Start 09/10/16 at 19:00 Clonidine (Catapres) 0.1 mg Q6H PRN GTB ELEVATED SYSTOLIC BP Last administered on 09/15/16 07:04; Admin Dose 0.1 MG; Start 09/13/16 at 23:00 Hydralazine HCl (Apresoline) 10 mg Q6H PRN IV ELEVATED SYSTOLIC BP Last administered on 09/15/16 02:08; Admin Dose 10 MG; Start 09/15/16 at 01:50 Collagenase (Santyl) 1 applic DAILY TOP Last administered on 09/24/16 09:11; Admin Dose 1 APPLIC; Start 09/18/16 at 09:00 Glycopyrrolate (Robinul) 1 mg Q8 GTB Last administered on 09/24/16 15:16; Admin Dose 1 MG; Start 09/19/16 at 09:30 Amikacin Sulfate (Amikacin Iv Per Pharmacy) AMIKACIN PER PHARMACY NOTE XX ; Start 09/24/16 at 14:00 KENIA TURCIOS MD Sep 24, 2016 18:07
[2016-09-24] MEDS ORDERED: SOD CHLORIDE 0.9% 250 ML IV* ONE (18:24)
--- NOTE | 2016-09-24 18:24 | PN ---
Date/Time of Note Date/Time of Note DATE: 09/24/16 TIME: 18:23 Assessment/Plan VTE Prophylaxis VTE Prophylaxis Intervention: SCD's Lines/Catheters IV C[facility]ter Type (from [facility] litzy Cath Urinary Cath still in place: No Assessment/Plan Chief Complaint/Hosp Course ASSESSMENT AND PLAN: 1. Severe anemia 2 GI bleed. Continue to monitor hemoglobin and hematocrit. Dr. Singh is following in gastroenterology consultation. 2. Hypovolemic shock, resolved. 3. Acute kidney failure on chronic kidney disease. Continue to monitor BUN and creatinine. Dr. Mk Purdy is following in nephrology consultation. Patient with worsening renal function. Started on Hemodialysis during this admission. 4. Pancytopenia. 5. Ventilator-dependent respiratory failure. 6. Possible healthcare-acquired pneumonia. Dr. Aragon is following in pulmonology consultation. Continue ventilator support, bronchodilators. Status post treatment. 7. Dysphagia with PEG. 8. History of seizure disorder. Continue patient on Keppra. 9. Diastolic dysfunction congestive heart failure with preserved ejection fraction of 60%. 10. S/p sepsis. Dr. Guy is following patient in infectious disease consultation. 11. Status post cerebrovascular accident, status post craniotomy. 12. Mental retardation. Continue Protonix for peptic ulcer disease prophylaxis. Further recommendations based on clinical course. Plan of care discussed with Dr. Mcelroy. Problems: Exam/Review of Systems Vital Signs Vitals Vital Signs Date Time Temp Pulse Resp B/P Pulse Ox O2 Delivery O2 Flow Rate FiO2 09/24/16 17:13 95 14 99 45 09/24/16 15:54 98.9 123/59 09/22/16 21:05 Mechanical Ventilator Intake and Output 09/23/16 09/23/16 09/24/16 15:00 23:00 07:00 Intake Total 880 ml 45 ml Output Total 60 ml Balance 820 ml 45 ml Exam Constitutional: alert, well developed Head: atraumatic, normocephalic Eyes: nl conjunctiva ENMT: nl external ears & nose Neck: jvd, supple Respiratory: clear to auscultation Cardiovascular: regular rate and rhythm Gastrointestinal: nl liver, spleen, soft Genitourinary - Male: nl penis, other ( Brar catheter ) Musculoskeletal: nl extremities to inspection, Extremities: normal pulses, bilateral LE s/p vascular intervention Results Result Diagram: 09/24/1615 09/24/1615 Results 24 hrs Laboratory Tests Test 09/24/16 05:15 Anion Gap 13 Basophils # 0.0 Basophils % 0.2 Blood Urea Nitrogen 79 H Calcium Level 7.9 L Carbon Dioxide Level 27 Chloride Level 96 L Creatinine 2.42 H Eosinophils # 0.2 Eosinophils % 1.5 Glucose Level 68 #L Hematocrit 23.3 L Hemoglobin 7.6 L Lymphocytes # 0.5 L Lymphocytes % 5.1 L Mean Corpuscular Hemoglobin 31.0 Mean Corpuscular Hemoglobin Concent 32.6 Mean Corpuscular Volume 95.1 Mean Platelet Volume 11.7 H Monocytes # 1.0 H Monocytes % 9.9 Neutrophils # 8.1 H Neutrophils % 82.8 H Nucleated Red Blood Cells # 0.0 Nucleated Red Blood Cells % 0.0 Platelet Count 67 #L Potassium Level 4.2 Red Blood Count 2.45 L Red Cell Distribution Width 17.1 H Sodium Level 132 L White Blood Count 9.8 # Medications Medications Current Medications Acetaminophen (Tylenol Liquid) 640 mg Q6H PRN GTB PAIN OR TEMP ABOVE 38C; Start 09/06/16 at 22:30 Allopurinol (Zyloprim) 200 mg DAILY GTB Last administered on 09/24/16 09:10; Admin Dose 200 MG; Start 09/07/16 at 09:00 Ascorbic Acid (Vitamin C) 500 mg BID GTB Last administered on 09/24/16 09:10; Admin Dose 500 MG; Start 09/07/16 at 09:00 Calcitriol (Rocaltrol) 0.25 mcg DAILY GTB Last administered on 09/24/16 09:09 ; Admin Dose 0.25 MCG; Start 09/07/16 at 09:00 Chlorhexidine Gluconate (Peridex) 15 ml BID MM Last administered on 09/24/16 09:11; Admin Dose 15 ML; Start 09/07/16 at 09:00 Famotidine (Pepcid) 40 mg DAILY GTB Last administered on 09/24/16 09:10; Admin Dose 40 MG; Start 09/07/16 at 09:00 Lansoprazole (Prevacid) 30 mg BID@18 GTB Last administered on 09/24/16 17: 14; Admin Dose 30 MG; Start 09/07/16 at 06:00 Levetiracetam (Keppra Liquid) 500 mg BID GTB Last administered on 09/24/16 09: 10; Admin Dose 500 MG; Start 09/07/16 at 09:00 Metoclopramide HCl (Reglan) 5 mg Q8H PRN GTB NAUSEA AND/OR VOMITING; Start 09/06 at 22:30 Sucralfate (Carafate Susp) 1 gm BID GTB Last administered on 09/24/16 09:11; Admin Dose 1 GM; Start 09/07/16 at 09:00 Ondansetron HCl (Zofran Inj) 4 mg Q6H PRN IV NAUSEA AND/OR VOMITING Last administered on 09/17/16 00:52; Admin Dose 4 MG; Start 09/06/16 at 22:30 Morphine Sulfate (morphine) 2 mg Q4H PRN IV PAIN LEVEL 7-10 Last administered on 09/16/16 20:19; Admin Dose 2 MG; Start 09/06/16 at 22:30 Metoclopramide HCl (Reglan) 5 mg Q6H PRN IV RESIDUALS > 100; Start 09/10/16 at 19:00 Clonidine (Catapres) 0.1 mg Q6H PRN GTB ELEVATED SYSTOLIC BP Last administered on 09/15/16 07:04; Admin Dose 0.1 MG; Start 09/13/16 at 23:00 Hydralazine HCl (Apresoline) 10 mg Q6H PRN IV ELEVATED SYSTOLIC BP Last administered on 09/15/16 02:08; Admin Dose 10 MG; Start 09/15/16 at 01:50 Collagenase (Santyl) 1 applic DAILY TOP Last administered on 09/24/16 09:11; Admin Dose 1 APPLIC; Start 09/18/16 at 09:00 Glycopyrrolate (Robinul) 1 mg Q8 GTB Last administered on 09/24/16 15:16; Admin Dose 1 MG; Start 09/19/16 at 09:30 Amikacin Sulfate (Amikacin Iv Per Pharmacy) AMIKACIN PER PHARMACY NOTE XX ; Start 09/24/16 at 14:00 QUIN ORTIZ Sep 24, 2016 18:24
--- NOTE | 2016-09-24 18:46 | PN ---
DATE: 09/24/2016 SUBJECTIVE: The patient is awake, his eyes are open, but he does not follow. He is breathing comfor tably with the ventilator support through tracheostomy. OBJECTIVE: VITAL SIGNS: This morning shows temperature 98.6, blood pressure 116/86, pulse rate of 96, respirat ions 18, pulse oximetry 99% saturation with 45% inhaled oxygen concentration. NECK: Tracheal secretions are clear. No bleeding is seen. HEART: Regular rhythm. CHEST: Breath sounds are heard bilaterally, diminished in the lower lung [place] with a few intermit tent rales and rhonchi. ABDOMEN: Soft, not distended, tolerating gastrostomy tube feedings. Bowel sounds are present. EXTREMITIES: Show generalized edema. LABORATORY DATA: From today shows a WBC 9800, hemoglobin 7.6, hematocrit 23.3, platelets decreased to 67,000 down from ____ yesterday. Chemistry panel shows sodium 132, potassium 4.2, bicarbonate of 27, BUN is 79, creatinine 2.42, glucose is 68. IMPRESSION: 1. Sepsis syndrome, improving. 2. Chronic respiratory failure, ventilator dependent. 3. Acute renal failure on dialysis. 4. History of seizure disorder. 5. Chronic encephalopathy. 6. Pancytopenia. RECOMMENDATIONS: 1. Continue long-term ventilator support. 2. Continue dialysis per guidance secretary. 3. Continue G-tube feedings, hydration. 4. Continue other supportive therapy. Dictated By: VEENA STREETER MD SR/NTS Conf#: [id number] DID#: [id number] CC: TAI PERRIN MD;*EndCC*
[2016-09-25] VITALS (33 sets, daily range): BP systolic 91–144; BP diastolic 50–82; PULSE 91–106; RESP 14–22
[2016-09-25] MEDS: IPRATROPIUM (HFA) 12.9 GM INHALER INH SCH ×4 (01:47→19:14)
[2016-09-25] MEDS: LEVALBUTEROL (HFA) 15 GM INHALER INH SCH ×4 (01:47→19:14)
[2016-09-25] MEDS: GLYCOPYRROLATE 1 MG TAB GTB SCH ×3 (06:00→21:41)
[2016-09-25] MEDS: LANSOPRAZOLE 30 MG CAP GTB SCH ×2 (06:00→17:53)
[2016-09-25 07:14] LABS: ADD SCAN DIFF NO
[2016-09-25 07:31] LABS: ABNORMAL IP MESSAGE 1; BASOPHILS % 0.4 % (0.0-2.0); EOSINOPHILS # 0.1 10^3/ul (0.0-0.5); EOSINOPHILS % 0.9 % (0.0-7.0); HEMATOCRIT 31.8 % (42.0-52.0); HEMOGLOBIN 10.2 g/dl (14.0-18.0); LYMPHOCYTES # 0.4 10^3/ul (0.8-2.9); LYMPHOCYTES % 4.5 % (15.0-51.0); MEAN CORPUSCULAR HEMOGLOBIN 30.7 pg (29.0-33.0); MEAN CORPUSCULAR HGB CONC 32.1 g/dl (32.0-37.0); MEAN CORPUSCULAR VOLUME 95.8 fl (82.0-101.0); MEAN PLATELET VOLUME 10.8 fl (7.4-10.4); MONOCYTE # 0.7 10^3/ul (0.3-0.9); MONOCYTES % 8.8 % (0.0-11.0); NEUTROPHIL # 6.5 10^3/ul (1.6-7.5); NEUTROPHILS % 84.8 % (39.0-77.0); PLATELET COUNT 64 10^3/UL (140-415); RED BLOOD COUNT 3.32 10^6/ul (4.70-6.10); RED CELL DISTRIBUTION WIDTH 17.2 % (11.5-14.5); WHITE BLOOD COUNT 7.7 10^3/ul (4.8-10.8)
[2016-09-25 07:32] LABS: POTASSIUM 4.3 mmol/L (3.5-5.1)
[2016-09-25 07:35] LABS: CREATININE 2.83 mg/dl (0.61-1.24)
[2016-09-25] MEDS: SEVELAMER CARBONATE 2.4 GM PKT GTB SCH ×3 (07:35→17:53)
[2016-09-25 07:36] LABS: CALCIUM 8.3 mg/dl (8.4-10.2)
[2016-09-25] MEDS: LEVETIRACETAM (100 MG/ML) 5ML CUP GTB SCH ×2 (09:13→21:41)
[2016-09-25] MEDS: SUCRALFATE (100 MG/ML) 10ML CUP GTB SCH ×2 (09:13→21:41)
[2016-09-25] MEDS: ALLOPURINOL 100 MG TAB GTB SCH (09:13)
[2016-09-25] MEDS: ASCORBIC ACID 500 MG TAB GTB SCH ×2 (09:13→21:42)
[2016-09-25] MEDS: CHLORHEXIDINE GLUCONATE 15 ML UD CUP MM SCH ×2 (09:13→21:41)
[2016-09-25] MEDS: FAMOTIDINE 20 MG TAB GTB SCH (09:13)
[2016-09-25] MEDS: CALCITRIOL 0.25 MCG CAP GTB SCH (09:13)
--- NOTE | 2016-09-25 09:13 | CONS ---
Date/Time of Note Date/Time of Note DATE: 09/25/16 TIME: 09:12 Assessment/Plan Assessment/Plan Additional Assessment/Plan 1. Acute kidney injury on possible chronic kidney disease unknown stage secondary to severe prerenal azotemia causing ischemic acute tubular necrosis in the setting of severe anemia.- continue to have Anuria with uremic symptoms and GI bleeding- started on HD during this admission 2. Severe anemia,s/p PRBC 3. Chronic respiratory failure, status post tracheostomy, on vent. 4. Pancytopenia. 5. History of a seizure disorder. 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, Hepatitis panel, HIV, Case management for outpatient HD placement Total Time spent in Patient follow up assessment, Updating patient/Family and Communicating with Nursing staff is >45 minutes Consultation Date/Type/Reason Admit Date/Time Sep 06, 2016 at 22:27 Initial Consult Date Aug Type of Consultation: NEPHROLOGY Referring Provider: FREDDY COELLO MD 24 HR Interval Summary Free Text/Dictation getting HD now , permacath not done yet Exam/Review of Systems Vital Signs Vitals Vital Signs Date Time Temp Pulse Resp B/P Pulse Ox O2 Delivery O2 Flow Rate FiO2 09/25/16 09:00 100 09/25/16 07:55 22 98 45 09/25/16 07:48 98.7 112/81 09/22/16 21:05 Mechanical Ventilator Intake and Output 09/24/16 09/24/16 09/25/16 15:00 23:00 07:00 Intake Total 140 ml 390 ml 385 ml Output Total 50 ml 100 ml Balance 90 ml 290 ml 385 ml Results Result Diagram: 09/25/16 0639 09/25/16 0639 Results 24 hrs Laboratory Tests Test 09/25/16 06:39 Anion Gap 14 Basophils # 0.0 Basophils % 0.4 Blood Urea Nitrogen 86 H Calcium Level 8.3 L Carbon Dioxide Level 25 Chloride Level 98 Creatinine 2.83 H Eosinophils # 0.1 Eosinophils % 0.9 Glucose Level 55 #L Hematocrit 31.8 #L Hemoglobin 10.2 #L Lymphocytes # 0.4 L Lymphocytes % 4.5 L Mean Corpuscular Hemoglobin 30.7 Mean Corpuscular Hemoglobin Concent 32.1 Mean Corpuscular Volume 95.8 Mean Platelet Volume 10.8 H Monocytes # 0.7 Monocytes % 8.8 Neutrophils # 6.5 Neutrophils % 84.8 H Nucleated Red Blood Cells # 0.0 Nucleated Red Blood Cells % 0.0 Platelet Count 64 L Potassium Level 4.3 Red Blood Count 3.32 #L Red Cell Distribution Width 17.2 H Sodium Level 133 L White Blood Count 7.7 # Medications Medications Current Medications Acetaminophen (Tylenol Liquid) 640 mg Q6H PRN GTB PAIN OR TEMP ABOVE 38C; Start 09/06/16 at 22:30 Allopurinol (Zyloprim) 200 mg DAILY GTB Last administered on 09/24/16 09:10; Admin Dose 200 MG; Start 09/07/16 at 09:00 Ascorbic Acid (Vitamin C) 500 mg BID GTB Last administered on 09/24/16 21:14; Admin Dose 500 MG; Start 09/07/16 at 09:00 Calcitriol (Rocaltrol) 0.25 mcg DAILY GTB Last administered on 09/24/16 09:09 ; Admin Dose 0.25 MCG; Start 09/07/16 at 09:00 Chlorhexidine Gluconate (Peridex) 15 ml BID MM Last administered on 09/24/16 21:14; Admin Dose 15 ML; Start 09/07/16 at 09:00 Famotidine (Pepcid) 40 mg DAILY GTB Last administered on 09/24/16 09:10; Admin Dose 40 MG; Start 09/07/16 at 09:00 Lansoprazole (Prevacid) 30 mg BID@,18 GTB Last administered on 09/24/16 17: 14; Admin Dose 30 MG; Start 09/07/16 at 06:00 Levetiracetam (Keppra Liquid) 500 mg BID GTB Last administered on 09/24/16 21: 14; Admin Dose 500 MG; Start 09/07/16 at 09:00 Metoclopramide HCl (Reglan) 5 mg Q8H PRN GTB NAUSEA AND/OR VOMITING; Start 09/06 at 22:30 Sucralfate (Carafate Susp) 1 gm BID GTB Last administered on 09/24/16 21:20; Admin Dose 1 GM; Start 09/07/16 at 09:00 Ondansetron HCl (Zofran Inj) 4 mg Q6H PRN IV NAUSEA AND/OR VOMITING Last administered on 09/17/16 00:52; Admin Dose 4 MG; Start 09/06/16 at 22:30 Morphine Sulfate (morphine) 2 mg Q4H PRN IV PAIN LEVEL 7-10 Last administered on 09/16/16 20:19; Admin Dose 2 MG; Start 09/06/16 at 22:30 Metoclopramide HCl (Reglan) 5 mg Q6H PRN IV RESIDUALS > 100; Start 09/10/16 at 19:00 Clonidine (Catapres) 0.1 mg Q6H PRN GTB ELEVATED SYSTOLIC BP Last administered on 09/15/16 07:04; Admin Dose 0.1 MG; Start 09/13/16 at 23:00 Hydralazine HCl (Apresoline) 10 mg Q6H PRN IV ELEVATED SYSTOLIC BP Last administered on 09/15/16 02:08; Admin Dose 10 MG; Start 09/15/16 at 01:50 Collagenase (Santyl) 1 applic DAILY TOP Last administered on 09/24/16 09:11; Admin Dose 1 APPLIC; Start 09/18/16 at 09:00 Glycopyrrolate (Robinul) 1 mg Q8 GTB Last administered on 09/24/16 21:20; Admin Dose 1 MG; Start 09/19/16 at 09:30 Amikacin Sulfate (Amikacin Iv Per Pharmacy) AMIKACIN PER PHARMACY NOTE XX ; Start 09/24/16 at 14:00 KENIA TURCIOS MD Sep 25, 2016 09:13
[2016-09-25] MEDS: COLLAGENASE 30 GM TUBE TOP SCH (12:01)
[2016-09-25] MEDS: AMIKACIN 400 MG in SOD CHLORIDE 0.9% 100 ML IVPB SCH (12:03)
--- NOTE | 2016-09-25 13:15 | CONS ---
Date/Time of Note Date/Time of Note DATE: 09/25/16 TIME: 13:13 Assessment/Plan Assessment/Plan Chief Complaint/Hosp Course SUBJECTIVE: No acute changes. The patient is lying comfortably in bed. He is status post a temperature of 100.2, currently afebrile. Wound culture growing Klebsiella, Pseudomonas, and Morganella morganii species, all multidrug resistant, susceptible to amikacin. INDWELLINGS: Left IJ litzy, trach, PEG. Abx: Amikacin PHYSICAL EXAMINATION: GENERAL: This is a well-developed, fragile, chronically ill-appearing, middle- aged man who is lying comfortably in bed. HEENT: Head atraumatic, normocephalic. Sclerae anicteric. Buccal mucosa dry. NECK: Supple. Tracheostomy present. CHEST: Rise symmetrical. Breath sounds diminished. HEART: S1, S2. ABDOMEN: Soft, bowel tones present. EXTREMITIES: Without cyanosis. Contractured. ASSESSMENT: 1. Status post septic shock. 2. Multiple decubitus with wound culture growing multi-drug resistant organisms. 3. Acute on chronic kidney disease, hemodialysis dependent. 4. Encephalopathy. 5. Seizure disorder. 6. ALLERGIC TO ZITHROMAX, ZOSYN, AND ERYTHROMYCIN. PLAN: Clinically stable. Continue abx, local wound care, HD per renal DW staff Problems: Consultation Date/Type/Reason Admit Date/Time Sep 06, 2016 at 22:27 Initial Consult Date 09/07/16 Type of Consultation: ID Referring Provider: FREDDY COELLO MD Exam/Review of Systems Vital Signs Vitals Vital Signs Date Time Temp Pulse Resp B/P Pulse Ox O2 Delivery O2 Flow Rate FiO2 09/25/16 12:45 103 09/25/16 11:40 17 99 45 09/25/16 11:28 99.1 132/61 09/22/16 21:05 Mechanical Ventilator Intake and Output 09/24/16 09/24/16 09/25/16 15:00 23:00 07:00 Intake Total 140 ml 390 ml 385 ml Output Total 50 ml 100 ml Balance 90 ml 290 ml 385 ml Results Result Diagram: 09/25/16 0639 09/25/16 0639 Results 24 hrs Laboratory Tests Test 09/25/16 06:39 09/25/16 11:55 Anion Gap 14 Basophils # 0.0 Basophils % 0.4 Blood Urea Nitrogen 86 H Calcium Level 8.3 L Carbon Dioxide Level 25 Chloride Level 98 Creatinine 2.83 H Eosinophils # 0.1 Eosinophils % 0.9 Glucose Level 55 #L Hematocrit 31.8 #L Hemoglobin 10.2 #L Lymphocytes # 0.4 L Lymphocytes % 4.5 L Mean Corpuscular Hemoglobin 30.7 Mean Corpuscular Hemoglobin Concent 32.1 Mean Corpuscular Volume 95.8 Mean Platelet Volume 10.8 H Monocytes # 0.7 Monocytes % 8.8 Neutrophils # 6.5 Neutrophils % 84.8 H Nucleated Red Blood Cells # 0.0 Nucleated Red Blood Cells % 0.0 Platelet Count 64 L Potassium Level 4.3 Red Blood Count 3.32 #L Red Cell Distribution Width 17.2 H Sodium Level 133 L White Blood Count 7.7 # Bedside Glucose 85 Medications Medications Current Medications Acetaminophen (Tylenol Liquid) 640 mg Q6H PRN GTB PAIN OR TEMP ABOVE 38C; Start 09/06/16 at 22:30 Allopurinol (Zyloprim) 200 mg DAILY GTB Last administered on 09/25/16 09:13; Admin Dose 200 MG; Start 09/07/16 at 09:00 Ascorbic Acid (Vitamin C) 500 mg BID GTB Last administered on 09/25/16 09:13; Admin Dose 500 MG; Start 09/07/16 at 09:00 Calcitriol (Rocaltrol) 0.25 mcg DAILY GTB Last administered on 09/25/16 09:13 ; Admin Dose 0.25 MCG; Start 09/07/16 at 09:00 Chlorhexidine Gluconate (Peridex) 15 ml BID MM Last administered on 09/25/16 09:13; Admin Dose 15 ML; Start 09/07/16 at 09:00 Famotidine (Pepcid) 40 mg DAILY GTB Last administered on 09/25/16 09:13; Admin Dose 40 MG; Start 09/07/16 at 09:00 Lansoprazole (Prevacid) 30 mg BID@18 GTB Last administered on 09/24/16 17: 14; Admin Dose 30 MG; Start 09/07/16 at 06:00 Levetiracetam (Keppra Liquid) 500 mg BID GTB Last administered on 09/25/16 09: 13; Admin Dose 500 MG; Start 09/07/16 at 09:00 Metoclopramide HCl (Reglan) 5 mg Q8H PRN GTB NAUSEA AND/OR VOMITING; Start 09/06 at 22:30 Sucralfate (Carafate Susp) 1 gm BID GTB Last administered on 09/25/16 09:13; Admin Dose 1 GM; Start 09/07/16 at 09:00 Ondansetron HCl (Zofran Inj) 4 mg Q6H PRN IV NAUSEA AND/OR VOMITING Last administered on 09/17/16 00:52; Admin Dose 4 MG; Start 09/06/16 at 22:30 Morphine Sulfate (morphine) 2 mg Q4H PRN IV PAIN LEVEL 7-10 Last administered on 09/16/16 20:19; Admin Dose 2 MG; Start 09/06/16 at 22:30 Metoclopramide HCl (Reglan) 5 mg Q6H PRN IV RESIDUALS > 100; Start 09/10/16 at 19:00 Clonidine (Catapres) 0.1 mg Q6H PRN GTB ELEVATED SYSTOLIC BP Last administered on 09/15/16 07:04; Admin Dose 0.1 MG; Start 09/13/16 at 23:00 Hydralazine HCl (Apresoline) 10 mg Q6H PRN IV ELEVATED SYSTOLIC BP Last administered on 09/15/16 02:08; Admin Dose 10 MG; Start 09/15/16 at 01:50 Collagenase (Santyl) 1 applic DAILY TOP Last administered on 09/25/16 12:01; Admin Dose 1 APPLIC; Start 09/18/16 at 09:00 Glycopyrrolate (Robinul) 1 mg Q8 GTB Last administered on 09/24/16 21:20; Admin Dose 1 MG; Start 09/19/16 at 09:30 Amikacin Sulfate (Amikacin Iv Per Pharmacy) AMIKACIN PER PHARMACY NOTE XX ; Start 09/24/16 at 14:00 ARUN DIANA NP Sep 25, 2016 13:15
--- NOTE | 2016-09-25 15:06 | PN ---
DATE: 09/25/2016 SUBJECTIVE: The patient's general condition is same. He is on ventilator support through tracheost juan josé. His breathing appears unlabored. His mental status also remains the same. Though he opens hi s eyes minimally, he does not follow. PHYSICAL EXAMINATION: VITAL SIGNS: Show temperature 99.1, blood pressure 132/61, pulse rate is 109, respiration rate is 1 8, pulse oximetry 98 percent saturation with 45% inhaled oxygen concentration. NECK: Tracheal secretions are clear. No bleeding is seen. HEART: Regular rhythm with periods of sinus tachycardia. CHEST: Breath sounds are heard, more diminished in both the lower lung [place] at the bases, otherwi se clear. ABDOMEN: Soft, not distended, tolerating gastrostomy tube feedings. EXTREMITIES: Show generalized edema. LABORATORY DATA: From today shows sodium 133, potassium 4.3, bicarbonate of 25, BUN 86, creatinine 2.83. BUN and creatinine were more or less the same with just minor changes with dialysis. The CBC shows a WBC 7700, hemoglobin 10.2, hematocrit 31.8, platelets decreased at 64,000. IMPRESSION: 1. Chronic respiratory failure, ventilator dependent. 2. Acute renal failure on dialysis. 3. History of seizure disorder. 4. Chronic encephalopathy. 5. History of developmental delay. 6. Pancytopenia. RECOMMENDATIONS: 1. Continue long-term ventilator support. 2. Continue dialysis per pump room operator. 3. Continue G-tube feedings and hydration. 4. Continue other supportive therapy. Dictated By: VEENA STREETER MD SR/NIKOLAI Conf#: [id number] DID#: [id number]
--- NOTE | 2016-09-25 16:57 | PN ---
Date/Time of Note Date/Time of Note DATE: 09/25/16 TIME: 16:57 Assessment/Plan VTE Prophylaxis VTE Prophylaxis Intervention: SCD's Lines/Catheters IV [facility] Central Line Urinary Cath still in place: Yes Assessment/Plan Chief Complaint/Hosp Course ASSESSMENT AND PLAN: 1. Severe anemia 2 GI bleed. Continue to monitor hemoglobin and hematocrit. Dr. Singh is following in gastroenterology consultation. 2. Hypovolemic shock, resolved. 3. Acute kidney failure on chronic kidney disease. Continue to monitor BUN and creatinine. Dr. Mk Purdy is following in nephrology consultation. Patient with worsening renal function. Started on Hemodialysis during this admission. 4. Pancytopenia. 5. Ventilator-dependent respiratory failure. 6. Possible healthcare-acquired pneumonia. Dr. Aragon is following in pulmonology consultation. Continue ventilator support, bronchodilators. Status post treatment. 7. Dysphagia with PEG. 8. History of seizure disorder. Continue patient on Keppra. 9. Diastolic dysfunction congestive heart failure with preserved ejection fraction of 60%. 10. S/p sepsis. Dr. Guy is following patient in infectious disease consultation. 11. Status post cerebrovascular accident, status post craniotomy. 12. Mental retardation. Continue Protonix for peptic ulcer disease prophylaxis. Further recommendations based on clinical course. Plan of care discussed with Dr. Mcelroy. Problems: Exam/Review of Systems Vital Signs Vitals Vital Signs Date Time Temp Pulse Resp B/P Pulse Ox O2 Delivery O2 Flow Rate FiO2 09/25/16 16:24 99 09/25/16 15:35 99.0 18 121/59 97 09/25/16 15:24 45 09/22/16 21:05 Mechanical Ventilator Intake and Output 09/24/16 09/24/16 09/25/16 15:00 23:00 07:00 Intake Total 140 ml 390 ml 385 ml Output Total 50 ml 100 ml Balance 90 ml 290 ml 385 ml Exam Constitutional: alert, well developed Head: atraumatic, normocephalic Eyes: nl conjunctiva ENMT: nl external ears & nose Neck: jvd, supple Respiratory: clear to auscultation Cardiovascular: regular rate and rhythm Gastrointestinal: nl liver, spleen, soft Genitourinary - Male: nl penis, other ( Brar catheter ) Musculoskeletal: nl extremities to inspection, Extremities: normal pulses, bilateral LE s/p vascular intervention Results Result Diagram: 09/25/16 0639 09/25/16 0639 Results 24 hrs Laboratory Tests Test 09/25/16 06:39 09/25/16 11:55 Anion Gap 14 Basophils # 0.0 Basophils % 0.4 Blood Urea Nitrogen 86 H Calcium Level 8.3 L Carbon Dioxide Level 25 Chloride Level 98 Creatinine 2.83 H Eosinophils # 0.1 Eosinophils % 0.9 Glucose Level 55 #L Hematocrit 31.8 #L Hemoglobin 10.2 #L Lymphocytes # 0.4 L Lymphocytes % 4.5 L Mean Corpuscular Hemoglobin 30.7 Mean Corpuscular Hemoglobin Concent 32.1 Mean Corpuscular Volume 95.8 Mean Platelet Volume 10.8 H Monocytes # 0.7 Monocytes % 8.8 Neutrophils # 6.5 Neutrophils % 84.8 H Nucleated Red Blood Cells # 0.0 Nucleated Red Blood Cells % 0.0 Platelet Count 64 L Potassium Level 4.3 Red Blood Count 3.32 #L Red Cell Distribution Width 17.2 H Sodium Level 133 L White Blood Count 7.7 # Bedside Glucose 85 Medications Medications Current Medications Acetaminophen (Tylenol Liquid) 640 mg Q6H PRN GTB PAIN OR TEMP ABOVE 38C; Start 09/06/16 at 22:30 Allopurinol (Zyloprim) 200 mg DAILY GTB Last administered on 09/25/16 09:13; Admin Dose 200 MG; Start 09/07/16 at 09:00 Ascorbic Acid (Vitamin C) 500 mg BID GTB Last administered on 09/25/16 09:13; Admin Dose 500 MG; Start 09/07/16 at 09:00 Calcitriol (Rocaltrol) 0.25 mcg DAILY GTB Last administered on 09/25/16 09:13 ; Admin Dose 0.25 MCG; Start 09/07/16 at 09:00 Chlorhexidine Gluconate (Peridex) 15 ml BID MM Last administered on 09/25/16 09:13; Admin Dose 15 ML; Start 09/07/16 at 09:00 Famotidine (Pepcid) 40 mg DAILY GTB Last administered on 09/25/16 09:13; Admin Dose 40 MG; Start 09/07/16 at 09:00 Lansoprazole (Prevacid) 30 mg BID@18 GTB Last administered on 09/24/16 17: 14; Admin Dose 30 MG; Start 09/07/16 at 06:00 Levetiracetam (Keppra Liquid) 500 mg BID GTB Last administered on 09/25/16 09: 13; Admin Dose 500 MG; Start 09/07/16 at 09:00 Metoclopramide HCl (Reglan) 5 mg Q8H PRN GTB NAUSEA AND/OR VOMITING; Start 09/06 at 22:30 Sucralfate (Carafate Susp) 1 gm BID GTB Last administered on 09/25/16 09:13; Admin Dose 1 GM; Start 09/07/16 at 09:00 Ondansetron HCl (Zofran Inj) 4 mg Q6H PRN IV NAUSEA AND/OR VOMITING Last administered on 09/17/16 00:52; Admin Dose 4 MG; Start 09/06/16 at 22:30 Morphine Sulfate (morphine) 2 mg Q4H PRN IV PAIN LEVEL 7-10 Last administered on 09/16/16 20:19; Admin Dose 2 MG; Start 09/06/16 at 22:30 Metoclopramide HCl (Reglan) 5 mg Q6H PRN IV RESIDUALS > 100; Start 09/10/16 at 19:00 Clonidine (Catapres) 0.1 mg Q6H PRN GTB ELEVATED SYSTOLIC BP Last administered on 09/15/16 07:04; Admin Dose 0.1 MG; Start 09/13/16 at 23:00 Hydralazine HCl (Apresoline) 10 mg Q6H PRN IV ELEVATED SYSTOLIC BP Last administered on 09/15/16 02:08; Admin Dose 10 MG; Start 09/15/16 at 01:50 Collagenase (Santyl) 1 applic DAILY TOP Last administered on 09/25/16 12:01; Admin Dose 1 APPLIC; Start 09/18/16 at 09:00 Glycopyrrolate (Robinul) 1 mg Q8 GTB Last administered on 09/24/16 21:20; Admin Dose 1 MG; Start 09/19/16 at 09:30 Amikacin Sulfate (Amikacin Iv Per Pharmacy) AMIKACIN PER PHARMACY NOTE XX ; Start 09/24/16 at 14:00 QUIN ORTIZ Sep 25, 2016 16:57
[2016-09-26] VITALS (25 sets, daily range): BP systolic 98–158; BP diastolic 61–98; PULSE 98–106; RESP 14–21
[2016-09-26] MEDS: IPRATROPIUM (HFA) 12.9 GM INHALER INH SCH ×4 (01:30→19:56)
[2016-09-26] MEDS: LEVALBUTEROL (HFA) 15 GM INHALER INH SCH ×4 (01:30→19:55)
[2016-09-26] MEDS: GLYCOPYRROLATE 1 MG TAB GTB SCH ×3 (05:32→21:34)
[2016-09-26] MEDS: LANSOPRAZOLE 30 MG CAP GTB SCH ×2 (05:32→17:42)
[2016-09-26] MEDS: SEVELAMER CARBONATE 2.4 GM PKT GTB SCH ×3 (07:45→17:42)
[2016-09-26] MEDS: LEVETIRACETAM (100 MG/ML) 5ML CUP GTB SCH ×2 (09:35→21:34)
[2016-09-26] MEDS: SUCRALFATE (100 MG/ML) 10ML CUP GTB SCH ×2 (09:35→21:34)
[2016-09-26] MEDS: CHLORHEXIDINE GLUCONATE 15 ML UD CUP MM SCH ×2 (09:36→21:34)
[2016-09-26] MEDS: CALCITRIOL 0.25 MCG CAP GTB SCH (09:36)
[2016-09-26] MEDS: ALLOPURINOL 100 MG TAB GTB SCH (09:36)
[2016-09-26] MEDS: COLLAGENASE 30 GM TUBE TOP SCH (09:36)
[2016-09-26] MEDS: ASCORBIC ACID 500 MG TAB GTB SCH ×2 (09:36→21:34)
[2016-09-26] MEDS: FAMOTIDINE 20 MG TAB GTB SCH (09:36)
--- NOTE | 2016-09-26 10:59 | CONS ---
Date/Time of Note Date/Time of Note DATE: 09/26/16 TIME: 10:57 Assessment/Plan Assessment/Plan Additional Assessment/Plan 1. Acute kidney injury on possible chronic kidney disease unknown stage secondary to severe prerenal azotemia causing ischemic acute tubular necrosis in the setting of severe anemia.- continue to have Anuria with uremic symptoms and GI bleeding- started on HD during this admission 2. Severe anemia,s/p PRBC 3. Chronic respiratory failure, status post tracheostomy, on vent. 4. Pancytopenia. 5. History of a seizure disorder. PLAN: - getting HD today through [facility], plan for permacath by - still not done yet HD ordered for tomorrow( will do it after permacath) Us showed kidneys are small in size and increased echogenicity c/w chronic medical renal disease- pt likely to be intermediate HD placement, Hepatitis panel, HIV, Case management for outpatient HD placement Total Time spent in Patient follow up assessment, Updating patient/Family and Communicating with Nursing staff is >45 minutes Consultation Date/Type/Reason Admit Date/Time Sep 06, 2016 at 22:27 Initial Consult Date Aug Type of Consultation: NEPHROLOGY Reason for Consultation MICHELLE oN CKD with uremic encephalopathy and Bleeding complications from uremia Referring Provider: FREDDY COELLO MD 24 HR Interval Summary Free Text/Dictation Permacath not done yet, s/p HD yesterday 200 cc removed Exam/Review of Systems Vital Signs Vitals Vital Signs Date Time Temp Pulse Resp B/P Pulse Ox O2 Delivery O2 Flow Rate FiO2 09/26/16 08:43 100 15 98 45 09/26/16 07:34 98.7 127/61 09/22/16 21:05 Mechanical Ventilator Intake and Output 09/25/16 09/25/16 09/26/16 15:00 23:00 07:00 Intake Total 600 ml 100 ml 600 ml Output Total 700 ml 100 ml 100 ml Balance -100 ml 0 ml 500 ml Results Result Diagram: 09/25/16 0639 09/25/16 0639 Results 24 hrs Laboratory Tests Test 09/25/16 11:55 Bedside Glucose 85 Medications Medications Current Medications Acetaminophen (Tylenol Liquid) 640 mg Q6H PRN GTB PAIN OR TEMP ABOVE 38C; Start 09/06/16 at 22:30 Allopurinol (Zyloprim) 200 mg DAILY GTB Last administered on 09/26/16 09:36; Admin Dose 200 MG; Start 09/07/16 at 09:00 Ascorbic Acid (Vitamin C) 500 mg BID GTB Last administered on 09/26/16 09:36; Admin Dose 500 MG; Start 09/07/16 at 09:00 Calcitriol (Rocaltrol) 0.25 mcg DAILY GTB Last administered on 09/26/16 09:36; Admin Dose 0.25 MCG; Start 09/07/16 at 09:00 Chlorhexidine Gluconate (Peridex) 15 ml BID MM Last administered on 09/26/16 09 :36; Admin Dose 15 ML; Start 09/07/16 at 09:00 Famotidine (Pepcid) 40 mg DAILY GTB Last administered on 09/26/16 09:36; Admin Dose 40 MG; Start 09/07/16 at 09:00 Lansoprazole (Prevacid) 30 mg BID@18 GTB Last administered on 09/26/16 05:32 ; Admin Dose 30 MG; Start 09/07/16 at 06:00 Levetiracetam (Keppra Liquid) 500 mg BID GTB Last administered on 09/26/16 09: 35; Admin Dose 500 MG; Start 09/07/16 at 09:00 Metoclopramide HCl (Reglan) 5 mg Q8H PRN GTB NAUSEA AND/OR VOMITING; Start 09/06 at 22:30 Sucralfate (Carafate Susp) 1 gm BID GTB Last administered on 09/26/16 09:35; Admin Dose 1 GM; Start 09/07/16 at 09:00 Ondansetron HCl (Zofran Inj) 4 mg Q6H PRN IV NAUSEA AND/OR VOMITING Last administered on 09/17/16 00:52; Admin Dose 4 MG; Start 09/06/16 at 22:30 Morphine Sulfate (morphine) 2 mg Q4H PRN IV PAIN LEVEL 7-10 Last administered on 09/16/16 20:19; Admin Dose 2 MG; Start 09/06/16 at 22:30 Metoclopramide HCl (Reglan) 5 mg Q6H PRN IV RESIDUALS > 100; Start 09/10/16 at 19:00 Clonidine (Catapres) 0.1 mg Q6H PRN GTB ELEVATED SYSTOLIC BP Last administered on 09/15/16 07:04; Admin Dose 0.1 MG; Start 09/13/16 at 23:00 Hydralazine HCl (Apresoline) 10 mg Q6H PRN IV ELEVATED SYSTOLIC BP Last administered on 09/15/16 02:08; Admin Dose 10 MG; Start 09/15/16 at 01:50 Collagenase (Santyl) 1 applic DAILY TOP Last administered on 09/26/16 09:36; Admin Dose 1 APPLIC; Start 09/18/16 at 09:00 Glycopyrrolate (Robinul) 1 mg Q8 GTB Last administered on 09/26/16 05:32; Admin Dose 1 MG; Start 09/19/16 at 09:30 Amikacin Sulfate (Amikacin Iv Per Pharmacy) AMIKACIN PER PHARMACY NOTE XX ; Start 09/24/16 at 14:00 KENIA TURCIOS MD Sep 26, 2016 10:59
--- NOTE | 2016-09-26 15:45 | PN ---
DATE: 09/26/2016 PULMONARY FOLLOWUP SUBJECTIVE: The patient is on continuous ventilator support through tracheostomy. His general cond ition is same. He minimally opens his eyes but does not follow. OBJECTIVE: VITAL SIGNS: Stable. Temperature is 98.6, blood pressure 158/98, pulse rate is 107, respirations 1 8, pulse oximetry 98% saturation on 40% inhaled oxygen concentration. LUNGS: His breathing appears unlabored. NECK: Tracheostomy secretions are clear. No bleeding is seen. HEART: Regular rhythm. CHEST: Breath sounds are heard bilaterally, somewhat diminished in the lower lung [place] at the bas es, otherwise clear. ABDOMEN: Soft, tolerating gastrostomy tube feedings. Normal bowel sounds. EXTREMITIES: Show generalized edema. LABORATORY DATA: No lab results are available for today. IMPRESSION: 1. Chronic respiratory failure, ventilator dependent. 2. Acute renal failure on dialysis. 3. History of seizure disorder. 4. Chronic encephalopathy. 5. History of developmental delay. 6. Pancytopenia. RECOMMENDATIONS: 1. Continue long-term ventilator support. 2. Continue dialysis as per the leak detector. 3. Continue G-tube feedings and hydration. 4. Continue supportive therapy. Dictated By: VEENA STREETER MD SR/NTS Conf#: [id number] DID#: [id number]
--- NOTE | 2016-09-26 16:00 | CONS ---
Date/Time of Note Date/Time of Note DATE: 09/26/16 TIME: 15:59 Assessment/Plan Assessment/Plan Chief Complaint/Hosp Course SUBJECTIVE: No acute changes. S/p low grade temps, currently afebrile, nad INDWELLINGS: Left IJ litzy, trach, PEG. Abx: Amikacin PHYSICAL EXAMINATION: GENERAL: This is a well-developed, fragile, chronically ill-appearing, middle- aged man who is lying comfortably in bed. HEENT: Head atraumatic, normocephalic. Sclerae anicteric. Buccal mucosa dry. NECK: Supple. Tracheostomy present. CHEST: Rise symmetrical. Breath sounds diminished. HEART: S1, S2. ABDOMEN: Soft, bowel tones present. EXTREMITIES: Without cyanosis. Contractured. ASSESSMENT: 1. Status post septic shock. 2. Multiple decubitus with wound culture growing multi-drug resistant organisms. 3. Acute on chronic kidney disease, hemodialysis dependent. 4. Encephalopathy. 5. Seizure disorder. 6. ALLERGIC TO ZITHROMAX, ZOSYN, AND ERYTHROMYCIN. PLAN: Clinically stable. Continue abx, local wound care, santos cx prn DW staff Problems: Consultation Date/Type/Reason Admit Date/Time Sep 06, 2016 at 22:27 Initial Consult Date 09/07/16 Type of Consultation: id Referring Provider: FREDDY COELLO MD Exam/Review of Systems Vital Signs Vitals Vital Signs Date Time Temp Pulse Resp B/P Pulse Ox O2 Delivery O2 Flow Rate FiO2 09/26/16 15:10 98.6 107 18 158/98 98 09/26/16 08:43 45 09/22/16 21:05 Mechanical Ventilator Intake and Output 09/25/16 09/25/16 09/26/16 15:00 23:00 07:00 Intake Total 600 ml 100 ml 600 ml Output Total 700 ml 100 ml 100 ml Balance -100 ml 0 ml 500 ml Results Result Diagram: 09/25/16 0639 09/25/16 0639 Medications Medications Current Medications Acetaminophen (Tylenol Liquid) 640 mg Q6H PRN GTB PAIN OR TEMP ABOVE 38C; Start 09/06/16 at 22:30 Allopurinol (Zyloprim) 200 mg DAILY GTB Last administered on 09/26/16t 09:36; Admin Dose 200 MG; Start 09/07/16 at 09:00 Ascorbic Acid (Vitamin C) 500 mg BID GTB Last administered on 09/26/16 09:36; Admin Dose 500 MG; Start 09/07/16 at 09:00 Calcitriol (Rocaltrol) 0.25 mcg DAILY GTB Last administered on 09/26/16 09:36; Admin Dose 0.25 MCG; Start 09/07/16 at 09:00 Chlorhexidine Gluconate (Peridex) 15 ml BID MM Last administered on 09/26/16 09 :36; Admin Dose 15 ML; Start 09/07/16 at 09:00 Famotidine (Pepcid) 40 mg DAILY GTB Last administered on 09/26/16 09:36; Admin Dose 40 MG; Start 09/07/16 at 09:00 Lansoprazole (Prevacid) 30 mg BID@18 GTB Last administered on 09/26/16 05:32 ; Admin Dose 30 MG; Start 09/07/16 at 06:00 Levetiracetam (Keppra Liquid) 500 mg BID GTB Last administered on 09/26/16 09: 35; Admin Dose 500 MG; Start 09/07/16 at 09:00 Metoclopramide HCl (Reglan) 5 mg Q8H PRN GTB NAUSEA AND/OR VOMITING; Start 09/06 at 22:30 Sucralfate (Carafate Susp) 1 gm BID GTB Last administered on 09/26/16 09:35; Admin Dose 1 GM; Start 09/07/16 at 09:00 Ondansetron HCl (Zofran Inj) 4 mg Q6H PRN IV NAUSEA AND/OR VOMITING Last administered on 09/17/16 00:52; Admin Dose 4 MG; Start 09/06/16 at 22:30 Morphine Sulfate (morphine) 2 mg Q4H PRN IV PAIN LEVEL 7-10 Last administered on 09/16/16 20:19; Admin Dose 2 MG; Start 09/06/16 at 22:30 Metoclopramide HCl (Reglan) 5 mg Q6H PRN IV RESIDUALS > 100; Start 09/10/16 at 19:00 Clonidine (Catapres) 0.1 mg Q6H PRN GTB ELEVATED SYSTOLIC BP Last administered on 09/15/16 07:04; Admin Dose 0.1 MG; Start 09/13/16 at 23:00 Hydralazine HCl (Apresoline) 10 mg Q6H PRN IV ELEVATED SYSTOLIC BP Last administered on 09/15/16 02:08; Admin Dose 10 MG; Start 09/15/16 at 01:50 Collagenase (Santyl) 1 applic DAILY TOP Last administered on 09/26/16 09:36; Admin Dose 1 APPLIC; Start 09/18/16 at 09:00 Glycopyrrolate (Robinul) 1 mg Q8 GTB Last administered on 09/26/16 14:45; Admin Dose 1 MG; Start 09/19/16 at 09:30 Amikacin Sulfate (Amikacin Iv Per Pharmacy) AMIKACIN PER PHARMACY NOTE XX ; Start 09/24/16 at 14:00 ARUN DIANA NP Sep 26, 2016 16:00
--- NOTE | 2016-09-26 18:04 | PN ---
Date/Time of Note Date/Time of Note DATE: 09/26/16 TIME: 18:02 Assessment/Plan VTE Prophylaxis VTE Prophylaxis Intervention: SCD's Lines/Catheters IV Catheter Type (from [facility]): Central Line Central line still needed: Yes Urinary Cath still in place: Yes Reason Cath still needed: urinary retention Assessment/Plan Chief Complaint/Hosp Course ASSESSMENT AND PLAN: 1. Severe anemia 2 GI bleed. Continue to monitor hemoglobin and hematocrit. Dr. Singh is following in gastroenterology consultation. 2. Hypovolemic shock, resolved. 3. Acute kidney failure on chronic kidney disease. Continue to monitor BUN and creatinine. Dr. Mk Purdy is following in nephrology consultation. Patient with worsening renal function. Started on Hemodialysis during this admission. 4. Pancytopenia. 5. Ventilator-dependent respiratory failure. 6. Possible healthcare-acquired pneumonia. Dr. Aragon is following in pulmonology consultation. Continue ventilator support, bronchodilators. Status post treatment. 7. Dysphagia with PEG. 8. History of seizure disorder. Continue patient on Keppra. 9. Diastolic dysfunction congestive heart failure with preserved ejection fraction of 60%. 10. S/p sepsis. Dr. Guy is following patient in infectious disease consultation. 11. Status post cerebrovascular accident, status post craniotomy. 12. Mental retardation. Continue Protonix for peptic ulcer disease prophylaxis. Further recommendations based on clinical course. Plan of care discussed with Dr. Mcelroy. Problems: Subjective 24 Hr Interval Summary Free Text/Dictation No fever, N/V, tolerated feeding well. Exam/Review of Systems Vital Signs Vitals Vital Signs Date Time Temp Pulse Resp B/P Pulse Ox O2 Delivery O2 Flow Rate FiO2 09/26/16 17:04 104 17 98 45 09/26/16 15:10 98.6 158/98 09/22/16 21:05 Mechanical Ventilator Intake and Output 09/25/16 09/25/16 09/26/16 15:00 23:00 07:00 Intake Total 600 ml 100 ml 600 ml Output Total 700 ml 100 ml 100 ml Balance -100 ml 0 ml 500 ml Exam Constitutional: alert, well developed Head: atraumatic, normocephalic Eyes: nl conjunctiva ENMT: nl external ears & nose Neck: jvd, supple Respiratory: clear to auscultation Cardiovascular: regular rate and rhythm Gastrointestinal: nl liver, spleen, soft Genitourinary - Male: nl penis, other ( Brar catheter ) Musculoskeletal: nl extremities to inspection, Extremities: normal pulses, bilateral LE s/p vascular intervention Results Result Diagram: 09/25/1639 09/25/1639 Medications Medications Current Medications Acetaminophen (Tylenol Liquid) 640 mg Q6H PRN GTB PAIN OR TEMP ABOVE 38C; Start 09/06/16 at 22:30 Allopurinol (Zyloprim) 200 mg DAILY GTB Last administered on 09/26/16 09:36; Admin Dose 200 MG; Start 09/07/16 at 09:00 Ascorbic Acid (Vitamin C) 500 mg BID GTB Last administered on 09/26/16 09:36; Admin Dose 500 MG; Start 09/07/16 at 09:00 Calcitriol (Rocaltrol) 0.25 mcg DAILY GTB Last administered on 09/26/16 09:36; Admin Dose 0.25 MCG; Start 09/07/16 at 09:00 Chlorhexidine Gluconate (Peridex) 15 ml BID MM Last administered on 09/26/16 09 :36; Admin Dose 15 ML; Start 09/07/16 at 09:00 Famotidine (Pepcid) 40 mg DAILY GTB Last administered on 09/26/16 09:36; Admin Dose 40 MG; Start 09/07/16 at 09:00 Lansoprazole (Prevacid) 30 mg BID@06,18 GTB Last administered on 09/26/16 17:42 ; Admin Dose 30 MG; Start 09/07/16 at 06:00 Levetiracetam (Keppra Liquid) 500 mg BID GTB Last administered on 09/26/16 09: 35; Admin Dose 500 MG; Start 09/07/16 at 09:00 Metoclopramide HCl (Reglan) 5 mg Q8H PRN GTB NAUSEA AND/OR VOMITING; Start 09/06 at 22:30 Sucralfate (Carafate Susp) 1 gm BID GTB Last administered on 09/26/16 09:35; Admin Dose 1 GM; Start 09/07/16 at 09:00 Ondansetron HCl (Zofran Inj) 4 mg Q6H PRN IV NAUSEA AND/OR VOMITING Last administered on 09/17/16 00:52; Admin Dose 4 MG; Start 09/06/16 at 22:30 Morphine Sulfate (morphine) 2 mg Q4H PRN IV PAIN LEVEL 7-10 Last administered on 09/16/16 20:19; Admin Dose 2 MG; Start 09/06/16 at 22:30 Metoclopramide HCl (Reglan) 5 mg Q6H PRN IV RESIDUALS > 100; Start 09/10/16 at 19:00 Clonidine (Catapres) 0.1 mg Q6H PRN GTB ELEVATED SYSTOLIC BP Last administered on 09/15/16 07:04; Admin Dose 0.1 MG; Start 09/13/16 at 23:00 Hydralazine HCl (Apresoline) 10 mg Q6H PRN IV ELEVATED SYSTOLIC BP Last administered on 09/15/16 02:08; Admin Dose 10 MG; Start 09/15/16 at 01:50 Collagenase (Santyl) 1 applic DAILY TOP Last administered on 09/26/16 09:36; Admin Dose 1 APPLIC; Start 09/18/16 at 09:00 Glycopyrrolate (Robinul) 1 mg Q8 GTB Last administered on 09/26/16 14:45; Admin Dose 1 MG; Start 09/19/16 at 09:30 Amikacin Sulfate (Amikacin Iv Per Pharmacy) AMIKACIN PER PHARMACY NOTE XX ; Start 09/24/16 at 14:00 QUIN ORTIZ Sep 26, 2016 18:04
[2016-09-27] VITALS (25 sets, daily range): BP systolic 114–167; BP diastolic 58–76; PULSE 82–100; RESP 14–20
[2016-09-27] MEDS: IPRATROPIUM (HFA) 12.9 GM INHALER INH SCH ×4 (01:24→20:03)
[2016-09-27] MEDS: LEVALBUTEROL (HFA) 15 GM INHALER INH SCH ×4 (01:24→20:03)
[2016-09-27] MEDS: GLYCOPYRROLATE 1 MG TAB GTB SCH ×3 (06:48→22:00)
[2016-09-27] MEDS: LANSOPRAZOLE 30 MG CAP GTB SCH ×2 (06:48→18:28)
[2016-09-27 08:10] LABS: ADD SCAN DIFF NO
[2016-09-27 08:34] LABS: ABNORMAL IP MESSAGE 1; BASOPHILS % 0.2 % (0.0-2.0); EOSINOPHILS # 0.2 10^3/ul (0.0-0.5); EOSINOPHILS % 3.5 % (0.0-7.0); HEMATOCRIT 19.9 % (42.0-52.0); LYMPHOCYTES # 0.4 10^3/ul (0.8-2.9); LYMPHOCYTES % 6.7 % (15.0-51.0); MEAN CORPUSCULAR HEMOGLOBIN 30.3 pg (29.0-33.0); MEAN CORPUSCULAR HGB CONC 31.7 g/dl (32.0-37.0); MEAN CORPUSCULAR VOLUME 95.7 fl (82.0-101.0); MONOCYTE # 0.6 10^3/ul (0.3-0.9); MONOCYTES % 11.1 % (0.0-11.0); NEUTROPHIL # 4.5 10^3/ul (1.6-7.5); NEUTROPHILS % 78.1 % (39.0-77.0); RED BLOOD COUNT 2.08 10^6/ul (4.70-6.10); RED CELL DISTRIBUTION WIDTH 17.2 % (11.5-14.5); WHITE BLOOD COUNT 5.7 10^3/ul (4.8-10.8)
[2016-09-27 08:40] LABS: CREATININE 2.67 mg/dl (0.61-1.24)
[2016-09-27 08:41] LABS: CALCIUM 8.1 mg/dl (8.4-10.2)
[2016-09-27 08:50] LABS: HEMOGLOBIN 6.3 g/dl (14.0-18.0)
[2016-09-27 08:51] LABS: PLATELET COUNT 48 10^3/UL (140-415)
--- NOTE | 2016-09-27 08:57 | CONS ---
Date/Time of Note Date/Time of Note DATE: 09/27/16 TIME: 08:55 Assessment/Plan Assessment/Plan Additional Assessment/Plan 1. Acute kidney injury on possible chronic kidney disease unknown stage secondary to severe prerenal azotemia causing ischemic acute tubular necrosis in the setting of severe anemia.- continue to have Anuria with uremic symptoms and GI bleeding- started on HD during this admission 2. Severe anemia,s/p PRBC 3. Chronic respiratory failure, status post tracheostomy, on vent. 4. Pancytopenia. 5. History of a seizure disorder. PLAN: - getting HD today through [facility], plan for permacath by possible today HD ordered for today( will do it after permacath) Us showed kidneys are small in size and increased echogenicity c/w chronic medical renal disease- pt likely to be detention HD placement, Hepatitis panel, HIV, Case management for outpatient HD placement Total Time spent in Patient follow up assessment, Updating patient/Family and Communicating with Nursing staff is >45 minutes Consultation Date/Type/Reason Admit Date/Time Sep 06, 2016 at 22:27 Initial Consult Date Aug Type of Consultation: NEPHROLOGY Reason for Consultation MICHELLE with Uremic complications including bleeding Referring Provider: FREDDY COELLO MD 24 HR Interval Summary Free Text/Dictation plan for permacath today, HD ordered for today also Exam/Review of Systems Vital Signs Vitals Vital Signs Date Time Temp Pulse Resp B/P Pulse Ox O2 Delivery O2 Flow Rate FiO2 09/27/16 07:34 97.6 103 20 139/62 93 09/27/16 05:09 45 Intake and Output 09/26/16 09/26/16 09/27/16 15:00 23:00 07:00 Intake Total 240 ml 400 ml 530 ml Output Total 50 ml 100 ml Balance 240 ml 350 ml 430 ml Exam GENERAL: chronically ill-appearing, middle-aged man who is lying comfortably in bed. HEENT: Head atraumatic, normocephalic. Sclerae anicteric. Buccal mucosa dry. NECK: Supple. Tracheostomy present. CHEST: Rise symmetrical. Breath sounds diminished. HEART: S1, S2. ABDOMEN: Soft, bowel tones present. EXTREMITIES: Without cyanosis. Contractured. + litzy catheter present Results Result Diagram: 09/27/16 0735 09/27/16 0735 Results 24 hrs Laboratory Tests Test 09/27/16 07:35 Anion Gap 9 Basophils # 0.0 Basophils % 0.2 Blood Urea Nitrogen 75 H Calcium Level 8.1 L Carbon Dioxide Level 29 Chloride Level 97 Creatinine 2.67 H Eosinophils # 0.2 Eosinophils % 3.5 Glucose Level 83 Hematocrit 19.9 #L Hemoglobin 6.3 #*L Lymphocytes # 0.4 L Lymphocytes % 6.7 L Mean Corpuscular Hemoglobin 30.3 Mean Corpuscular Hemoglobin Concent 31.7 L Mean Corpuscular Volume 95.7 Mean Platelet Volume 11.0 H Monocytes # 0.6 Monocytes % 11.1 H Neutrophils # 4.5 Neutrophils % 78.1 H Nucleated Red Blood Cells # 0.0 Nucleated Red Blood Cells % 0.0 Platelet Count 48 #L Potassium Level 4.0 Red Blood Count 2.08 #L Red Cell Distribution Width 17.2 H Sodium Level 131 L White Blood Count 5.7 # Medications Medications Current Medications Acetaminophen (Tylenol Liquid) 640 mg Q6H PRN GTB PAIN OR TEMP ABOVE 38C; Start 09/06/16 at 22:30 Allopurinol (Zyloprim) 200 mg DAILY GTB Last administered on 09/26/16 09:36; Admin Dose 200 MG; Start 09/07/16 at 09:00 Ascorbic Acid (Vitamin C) 500 mg BID GTB Last administered on 09/26/16 21:34; Admin Dose 500 MG; Start 09/07/16 at 09:00 Calcitriol (Rocaltrol) 0.25 mcg DAILY GTB Last administered on 09/26/16 09:36; Admin Dose 0.25 MCG; Start 09/07/16 at 09:00 Chlorhexidine Gluconate (Peridex) 15 ml BID MM Last administered on 09/26/16 21 :34; Admin Dose 15 ML; Start 09/07/16 at 09:00 Famotidine (Pepcid) 40 mg DAILY GTB Last administered on 09/26/16 09:36; Admin Dose 40 MG; Start 09/07/16 at 09:00 Lansoprazole (Prevacid) 30 mg BID@,18 GTB Last administered on 09/27/16 06:48 ; Admin Dose 30 MG; Start 09/07/16 at 06:00 Levetiracetam (Keppra Liquid) 500 mg BID GTB Last administered on 09/26/16 21: 34; Admin Dose 500 MG; Start 09/07/16 at 09:00 Metoclopramide HCl (Reglan) 5 mg Q8H PRN GTB NAUSEA AND/OR VOMITING; Start 09/06 at 22:30 Sucralfate (Carafate Susp) 1 gm BID GTB Last administered on 09/26/16 21:34; Admin Dose 1 GM; Start 09/07/16 at 09:00 Ondansetron HCl (Zofran Inj) 4 mg Q6H PRN IV NAUSEA AND/OR VOMITING Last administered on 09/17/16 00:52; Admin Dose 4 MG; Start 09/06/16 at 22:30 Morphine Sulfate (morphine) 2 mg Q4H PRN IV PAIN LEVEL 7-10 Last administered on 09/16/16 20:19; Admin Dose 2 MG; Start 09/06/16 at 22:30 Metoclopramide HCl (Reglan) 5 mg Q6H PRN IV RESIDUALS > 100; Start 09/10/16 at 19:00 Clonidine (Catapres) 0.1 mg Q6H PRN GTB ELEVATED SYSTOLIC BP Last administered on 09/15/16 07:04; Admin Dose 0.1 MG; Start 09/13/16 at 23:00 Hydralazine HCl (Apresoline) 10 mg Q6H PRN IV ELEVATED SYSTOLIC BP Last administered on 09/15/16 02:08; Admin Dose 10 MG; Start 09/15/16 at 01:50 Collagenase (Santyl) 1 applic DAILY TOP Last administered on 09/26/16 09:36; Admin Dose 1 APPLIC; Start 09/18/16 at 09:00 Glycopyrrolate (Robinul) 1 mg Q8 GTB Last administered on 09/27/16 06:48; Admin Dose 1 MG; Start 09/19/16 at 09:30 Amikacin Sulfate (Amikacin Iv Per Pharmacy) AMIKACIN PER PHARMACY NOTE XX ; Start 09/24/16 at 14:00 KENIA TURCIOS MD Sep 27, 2016 08:57
--- NOTE | 2016-09-27 10:18 | PN ---
DATE: 09/27/2016 PHYSICAL EXAMINATION GENERAL: The patient's general condition remains the same. He is breathing comfortably with ventila tor support, through a tracheostomy. He minimally opens his eyes, but does not follow. VITAL SIGNS: Stable. Temperature 97.6, blood pressure 139/62, pulse rate is 103, respirations 20, pulse oximetry 93% saturation on 40% inhaled oxygen concentration. NECK: Tracheostomy secretions are moderate and clear. No bleeding is seen. HEART: Regular rhythm, with sinus tachycardia. CHEST: Breath sounds are heard bilaterally. Diminished in both lower lung [place], otherwise clear. ABDOMEN: Soft, not distended. Tolerating gastrostomy tube feedings. Bowel sounds are present. EXTREMITIES: Show generalized edema. LABORATORY: Laboratory tests from today show a WBC of 5700, hemoglobin 6.3, hematocrit 19.9, platel ets 48,000. Hemoglobin and hematocrit have dropped from before. The chemistry panel shows sodium 1 31, potassium 4, bicarbonate of 29, glucose 83, BUN 75, creatinine 2.67. IMPRESSION: 1. Chronic respiratory failure, ventilator dependent. 2. Acute renal failure, on dialysis. 3. Chronic anemia. 4. History of seizure disorder. 5. Chronic encephalopathy. 6. History of developmental delay. 7. Pancytopenia. RECOMMENDS: 1. Continue long-term ventilator support. 2. Continue dialysis as per nephrology. He is scheduled to have a pulmonary catheter placement. 3. Continue G-tube feedings and hydration. 4. As the hemoglobin and hematocrit have dropped significantly, he will need a blood transfusion. T his could be coordinated with the telephone cleaner to give blood transfusion during dialysis. Otherwise , he may need at least 1 unit of transfusion to bring up his hemoglobin to a reasonably stable level . Discussed this with the nurse in charge, who will try to coordinate this with the primary physician, his nurse practitioner, and also with the telephone cleaner. Dictated By: VEENA STREETER MD SR/NIKOLAI Conf#: [id number] DID#: [id number]
[2016-09-27] MEDS: FAMOTIDINE 20 MG TAB GTB SCH (11:35)
[2016-09-27] MEDS: ALLOPURINOL 100 MG TAB GTB SCH (11:35)
[2016-09-27] MEDS: ASCORBIC ACID 500 MG TAB GTB SCH ×2 (11:35→20:47)
[2016-09-27] MEDS: CALCITRIOL 0.25 MCG CAP GTB SCH (11:35)
[2016-09-27] MEDS: SEVELAMER CARBONATE 2.4 GM PKT GTB SCH ×3 (11:35→18:28)
[2016-09-27] MEDS: COLLAGENASE 30 GM TUBE TOP SCH (11:36)
[2016-09-27] MEDS: LEVETIRACETAM (100 MG/ML) 5ML CUP GTB SCH ×2 (11:36→20:47)
[2016-09-27] MEDS: CHLORHEXIDINE GLUCONATE 15 ML UD CUP MM SCH ×2 (11:36→20:47)
[2016-09-27] MEDS: SUCRALFATE (100 MG/ML) 10ML CUP GTB SCH ×2 (11:36→20:47)
--- NOTE | 2016-09-27 12:06 | CONS ---
Date/Time of Note Date/Time of Note DATE: 09/27/16 TIME: 12:06 Assessment/Plan Assessment/Plan Chief Complaint/Hosp Course SUBJECTIVE: No acute changes. S/p low grade temps, currently afebrile, nad INDWELLINGS: Left IJ litzy, trach, PEG. Abx: Amikacin PHYSICAL EXAMINATION: GENERAL: This is a well-developed, fragile, chronically ill-appearing, middle- aged man who is lying comfortably in bed. HEENT: Head atraumatic, normocephalic. Sclerae anicteric. Buccal mucosa dry. NECK: Supple. Tracheostomy present. CHEST: Rise symmetrical. Breath sounds diminished. HEART: S1, S2. ABDOMEN: Soft, bowel tones present. EXTREMITIES: Without cyanosis. Contractured. ASSESSMENT: 1. Status post septic shock. 2. Multiple decubitus with wound culture growing multi-drug resistant organisms ==> on Amikacin. 3. Acute on chronic kidney disease, hemodialysis dependent. 4. Encephalopathy. 5. Seizure disorder. 6. ALLERGIC TO ZITHROMAX, ZOSYN, AND ERYTHROMYCIN. PLAN: Clinically stable. Continue abx, local wound care, santos cx prn DW staff Problems: Consultation Date/Type/Reason Admit Date/Time Sep 06, 2016 at 22:27 Initial Consult Date 09/07/16 Type of Consultation: id Referring Provider: FREDDY COELLO MD Exam/Review of Systems Vital Signs Vitals Vital Signs Date Time Temp Pulse Resp B/P Pulse Ox O2 Delivery O2 Flow Rate FiO2 09/27/16 12:01 97.6 98 20 167/74 98 09/27/16 11:26 45 Intake and Output 09/26/16 09/26/16 09/27/16 15:00 23:00 07:00 Intake Total 240 ml 400 ml 530 ml Output Total 50 ml 100 ml Balance 240 ml 350 ml 430 ml Results Result Diagram: 09/27/16 0735 09/27/16 0735 Results 24 hrs Laboratory Tests Test 09/27/16 07:35 Anion Gap 9 Basophils # 0.0 Basophils % 0.2 Blood Urea Nitrogen 75 H Calcium Level 8.1 L Carbon Dioxide Level 29 Chloride Level 97 Creatinine 2.67 H Eosinophils # 0.2 Eosinophils % 3.5 Glucose Level 83 Hematocrit 19.9 #L Hemoglobin 6.3 #*L Lymphocytes # 0.4 L Lymphocytes % 6.7 L Mean Corpuscular Hemoglobin 30.3 Mean Corpuscular Hemoglobin Concent 31.7 L Mean Corpuscular Volume 95.7 Mean Platelet Volume 11.0 H Monocytes # 0.6 Monocytes % 11.1 H Neutrophils # 4.5 Neutrophils % 78.1 H Nucleated Red Blood Cells # 0.0 Nucleated Red Blood Cells % 0.0 Platelet Count 48 #L Potassium Level 4.0 Red Blood Count 2.08 #L Red Cell Distribution Width 17.2 H Sodium Level 131 L White Blood Count 5.7 # Medications Medications Current Medications Acetaminophen (Tylenol Liquid) 640 mg Q6H PRN GTB PAIN OR TEMP ABOVE 38C; Start 09/06/16 at 22:30 Allopurinol (Zyloprim) 200 mg DAILY GTB Last administered on 09/27/16 11:35; Admin Dose 200 MG; Start 09/07/16 at 09:00 Ascorbic Acid (Vitamin C) 500 mg BID GTB Last administered on 09/27/16 11:35; Admin Dose 500 MG; Start 09/07/16 at 09:00 Calcitriol (Rocaltrol) 0.25 mcg DAILY GTB Last administered on 09/27/16 11:35; Admin Dose 0.25 MCG; Start 09/07/16 at 09:00 Chlorhexidine Gluconate (Peridex) 15 ml BID MM Last administered on 09/27/16 11 :36; Admin Dose 15 ML; Start 09/07/16 at 09:00 Famotidine (Pepcid) 40 mg DAILY GTB Last administered on 09/27/16 11:35; Admin Dose 40 MG; Start 09/07/16 at 09:00 Lansoprazole (Prevacid) 30 mg BID@,18 GTB Last administered on 09/27/16 06:48 ; Admin Dose 30 MG; Start 09/07/16 at 06:00 Levetiracetam (Keppra Liquid) 500 mg BID GTB Last administered on 09/27/16 11: 36; Admin Dose 500 MG; Start 09/07/16 at 09:00 Metoclopramide HCl (Reglan) 5 mg Q8H PRN GTB NAUSEA AND/OR VOMITING; Start 09/06 at 22:30 Sucralfate (Carafate Susp) 1 gm BID GTB Last administered on 09/27/16 11:36; Admin Dose 1 GM; Start 09/07/16 at 09:00 Ondansetron HCl (Zofran Inj) 4 mg Q6H PRN IV NAUSEA AND/OR VOMITING Last administered on 09/17/16 00:52; Admin Dose 4 MG; Start 09/06/16 at 22:30 Morphine Sulfate (morphine) 2 mg Q4H PRN IV PAIN LEVEL 7-10 Last administered on 09/16/16 20:19; Admin Dose 2 MG; Start 09/06/16 at 22:30 Metoclopramide HCl (Reglan) 5 mg Q6H PRN IV RESIDUALS > 100; Start 09/10/16 at 19:00 Clonidine (Catapres) 0.1 mg Q6H PRN GTB ELEVATED SYSTOLIC BP Last administered on 09/15/16 07:04; Admin Dose 0.1 MG; Start 09/13/16 at 23:00 Hydralazine HCl (Apresoline) 10 mg Q6H PRN IV ELEVATED SYSTOLIC BP Last administered on 09/15/16 02:08; Admin Dose 10 MG; Start 09/15/16 at 01:50 Collagenase (Santyl) 1 applic DAILY TOP Last administered on 09/27/16 11:36; Admin Dose 1 APPLIC; Start 09/18/16 at 09:00 Glycopyrrolate (Robinul) 1 mg Q8 GTB Last administered on 09/27/16 06:48; Admin Dose 1 MG; Start 09/19/16 at 09:30 Amikacin Sulfate (Amikacin Iv Per Pharmacy) AMIKACIN PER PHARMACY NOTE XX ; Start 09/24/16 at 14:00 ARUN DIANA NP Sep 27, 2016 12:06
--- NOTE | 2016-09-27 15:50 | PN ---
Date/Time of Note Date/Time of Note DATE: 09/27/16 TIME: 15:50 Assessment/Plan VTE Prophylaxis VTE Prophylaxis Intervention: other Lines/Catheters IV [facility]ter Type (from [email or web address] Central Line Central line still needed: Yes Urinary Cath still in place: Yes Reason Cath still needed: urinary retention Assessment/Plan Assessment/Plan 1. Severe anemia 2 GI bleed. Continue to monitor hemoglobin and hematocrit. - per Dr. Singh is following in gastroenterology consultation. 2. Hypovolemic shock, resolved. 3. Acute kidney failure on chronic kidney disease. Continue to monitor BUN and creatinine. - per Dr. Mk Purdy in nephrology consultation. Patient with worsening renal function. Started on Hemodialysis during this admission. 4. Pancytopenia. 5. Ventilator-dependent respiratory failure. 6. Possible healthcare-acquired pneumonia. - per Dr. Aragon in pulmonology consultation. Continue ventilator support, bronchodilators. Status post treatment. 7. Dysphagia with PEG. 8. History of seizure disorder. Continue patient on Keppra. 9. Diastolic dysfunction congestive heart failure with preserved ejection fraction of 60%. 10. S/p sepsis. - per Dr. Guy in infectious disease consultation. 11. Status post cerebrovascular accident, status post craniotomy. 12. Mental retardation. Continue Protonix for peptic ulcer disease prophylaxis. Further recommendations based on clinical course. Plan of care discussed with Dr. Mcelroy. Subjective 24 Hr Interval Summary Free Text/Dictation nad, plan for PermCath placement per cordell. Exam/Review of Systems Vital Signs Vitals Vital Signs Date Time Temp Pulse Resp B/P Pulse Ox O2 Delivery O2 Flow Rate FiO2 09/27/16 15:34 97.7 92 20 125/58 97 09/27/16 13:40 45 Intake and Output 09/26/16 09/26/16 09/27/16 15:00 23:00 07:00 Intake Total 240 ml 400 ml 530 ml Output Total 50 ml 100 ml Balance 240 ml 350 ml 430 ml Exam Constitutional: non-verbal Head: atraumatic Eyes: nl sclera ENMT: nl external ears & nose Neck: non-tender Respiratory: clear to auscultation Cardiovascular: nl pulses Gastrointestinal: non-tender, other (trach intact), soft Musculoskeletal: muscle weakness Extremities: normal pulses Neurological: unresponsive Skin: other Lymph: nontender Results Result Diagram: 09/27/16 0735 09/27/16 0735 Results 24 hrs Laboratory Tests Test 09/27/16 07:35 Anion Gap 9 Basophils # 0.0 Basophils % 0.2 Blood Urea Nitrogen 75 H Calcium Level 8.1 L Carbon Dioxide Level 29 Chloride Level 97 Creatinine 2.67 H Eosinophils # 0.2 Eosinophils % 3.5 Glucose Level 83 Hematocrit 19.9 #L Hemoglobin 6.3 #*L Lymphocytes # 0.4 L Lymphocytes % 6.7 L Mean Corpuscular Hemoglobin 30.3 Mean Corpuscular Hemoglobin Concent 31.7 L Mean Corpuscular Volume 95.7 Mean Platelet Volume 11.0 H Monocytes # 0.6 Monocytes % 11.1 H Neutrophils # 4.5 Neutrophils % 78.1 H Nucleated Red Blood Cells # 0.0 Nucleated Red Blood Cells % 0.0 Platelet Count 48 #L Potassium Level 4.0 Red Blood Count 2.08 #L Red Cell Distribution Width 17.2 H Sodium Level 131 L White Blood Count 5.7 # Medications Medications Current Medications Acetaminophen (Tylenol Liquid) 640 mg Q6H PRN GTB PAIN OR TEMP ABOVE 38C; Start 09/06/16 at 22:30 Allopurinol (Zyloprim) 200 mg DAILY GTB Last administered on 09/27/16 11:35; Admin Dose 200 MG; Start 09/07/16 at 09:00 Ascorbic Acid (Vitamin C) 500 mg BID GTB Last administered on 09/27/16 11:35; Admin Dose 500 MG; Start 09/07/16 at 09:00 Calcitriol (Rocaltrol) 0.25 mcg DAILY GTB Last administered on 09/27/16 11:35; Admin Dose 0.25 MCG; Start 09/07/16 at 09:00 Chlorhexidine Gluconate (Peridex) 15 ml BID MM Last administered on 09/27/16 11 :36; Admin Dose 15 ML; Start 09/07/16 at 09:00 Famotidine (Pepcid) 40 mg DAILY GTB Last administered on 09/27/16 11:35; Admin Dose 40 MG; Start 09/07/16 at 09:00 Lansoprazole (Prevacid) 30 mg BID@,18 GTB Last administered on 09/27/16 06:48 ; Admin Dose 30 MG; Start 09/07/16 at 06:00 Levetiracetam (Keppra Liquid) 500 mg BID GTB Last administered on 09/27/16 11: 36; Admin Dose 500 MG; Start 09/07/16 at 09:00 Metoclopramide HCl (Reglan) 5 mg Q8H PRN GTB NAUSEA AND/OR VOMITING; Start 09/06 at 22:30 Sucralfate (Carafate Susp) 1 gm BID GTB Last administered on 09/27/16 11:36; Admin Dose 1 GM; Start 09/07/16 at 09:00 Ondansetron HCl (Zofran Inj) 4 mg Q6H PRN IV NAUSEA AND/OR VOMITING Last administered on 09/17/16 00:52; Admin Dose 4 MG; Start 09/06/16 at 22:30 Morphine Sulfate (morphine) 2 mg Q4H PRN IV PAIN LEVEL 7-10 Last administered on 09/16/16 20:19; Admin Dose 2 MG; Start 09/06/16 at 22:30 Metoclopramide HCl (Reglan) 5 mg Q6H PRN IV RESIDUALS > 100; Start 09/10/16 at 19:00 Clonidine (Catapres) 0.1 mg Q6H PRN GTB ELEVATED SYSTOLIC BP Last administered on 09/15/16 07:04; Admin Dose 0.1 MG; Start 09/13/16 at 23:00 Hydralazine HCl (Apresoline) 10 mg Q6H PRN IV ELEVATED SYSTOLIC BP Last administered on 09/15/16 02:08; Admin Dose 10 MG; Start 09/15/16 at 01:50 Collagenase (Santyl) 1 applic DAILY TOP Last administered on 09/27/16 11:36; Admin Dose 1 APPLIC; Start 09/18/16 at 09:00 Glycopyrrolate (Robinul) 1 mg Q8 GTB Last administered on 09/27/16 06:48; Admin Dose 1 MG; Start 09/19/16 at 09:30 Amikacin Sulfate (Amikacin Iv Per Pharmacy) AMIKACIN PER PHARMACY NOTE XX ; Start 09/24/16 at 14:00 KRISTOPHER SOTO Sep 27, 2016 15:50
[2016-09-27] MEDS ORDERED: DEXTROSE 5%-0.45% NACL 1,000 ML IV SCH (16:00)
--- NOTE | 2016-09-27 16:11 | PN ---
Date/Time of Note Date/Time of Note DATE: 09/27/16 TIME: 16:11 Assessment/Plan VTE Prophylaxis VTE Prophylaxis Intervention: other Lines/Catheters IV [facility]ter Type (from [facility]): Central Line Central line still needed: Yes Urinary Cath still in place: Yes Reason Cath still needed: urinary retention Assessment/Plan Assessment/Plan 1. Severe anemia 2 GI bleed- blood transfusion today - Continue to monitor hemoglobin and hematocrit. - per Dr. Singh in gastroenterology consultation. 2. Hypovolemic shock, resolved. 3. Acute kidney failure on chronic kidney disease. Continue to monitor BUN and creatinine. - per Dr. Mk Purdy in nephrology consultation. . 4. Pancytopenia. 5. Ventilator-dependent respiratory failure. 6. Possible healthcare-acquired pneumonia. - per Dr. Aragon in pulmonology consultation. Continue ventilator support, bronchodilators. Status post treatment. 7. Dysphagia with PEG. - aspiration precautions 8. History of seizure disorder. Continue patient on Keppra. 9. Diastolic dysfunction congestive heart failure with preserved ejection fraction of 60%. 10. S/p sepsis. - per Dr. Guy in infectious disease consultation. 11. Status post cerebrovascular accident, status post craniotomy. 12. Mental retardation. Continue Protonix for peptic ulcer disease prophylaxis. Further recommendations based on clinical course. Plan of care discussed with Dr. Mcelroy. Subjective 24 Hr Interval Summary Free Text/Dictation NAD,,seems comfortable, no GI bleeding reported, dw staff Constitutional: requiring O2 Exam/Review of Systems Vital Signs Vitals Vital Signs Date Time Temp Pulse Resp B/P Pulse Ox O2 Delivery O2 Flow Rate FiO2 09/27/16 15:34 97.7 92 20 125/58 97 09/27/16 13:40 45 Intake and Output 09/26/16 09/26/16 09/27/16 15:00 23:00 07:00 Intake Total 240 ml 400 ml 530 ml Output Total 50 ml 100 ml Balance 240 ml 350 ml 430 ml Exam Constitutional: frail Psych: nl mood/affect Head: other Eyes: nl sclera ENMT: nl external ears & nose Respiratory: diminished breath sounds Cardiovascular: nl pulses Extremities: normal pulses Neurological: unresponsive Skin: other Lymph: nontender Results Result Diagram: 09/27/16 0735 09/27/16 0735 Results 24 hrs Laboratory Tests Test 09/27/16 07:35 Anion Gap 9 Basophils # 0.0 Basophils % 0.2 Blood Urea Nitrogen 75 H Calcium Level 8.1 L Carbon Dioxide Level 29 Chloride Level 97 Creatinine 2.67 H Eosinophils # 0.2 Eosinophils % 3.5 Glucose Level 83 Hematocrit 19.9 #L Hemoglobin 6.3 #*L Lymphocytes # 0.4 L Lymphocytes % 6.7 L Mean Corpuscular Hemoglobin 30.3 Mean Corpuscular Hemoglobin Concent 31.7 L Mean Corpuscular Volume 95.7 Mean Platelet Volume 11.0 H Monocytes # 0.6 Monocytes % 11.1 H Neutrophils # 4.5 Neutrophils % 78.1 H Nucleated Red Blood Cells # 0.0 Nucleated Red Blood Cells % 0.0 Platelet Count 48 #L Potassium Level 4.0 Red Blood Count 2.08 #L Red Cell Distribution Width 17.2 H Sodium Level 131 L White Blood Count 5.7 # Medications Medications Current Medications Acetaminophen (Tylenol Liquid) 640 mg Q6H PRN GTB PAIN OR TEMP ABOVE 38C; Start 09/06/16 at 22:30 Allopurinol (Zyloprim) 200 mg DAILY GTB Last administered on 09/27/16 11:35; Admin Dose 200 MG; Start 09/07/16 at 09:00 Ascorbic Acid (Vitamin C) 500 mg BID GTB Last administered on 09/27/16 11:35; Admin Dose 500 MG; Start 09/07/16 at 09:00 Calcitriol (Rocaltrol) 0.25 mcg DAILY GTB Last administered on 09/27/16 11:35; Admin Dose 0.25 MCG; Start 09/07/16 at 09:00 Chlorhexidine Gluconate (Peridex) 15 ml BID MM Last administered on 09/27/16 11 :36; Admin Dose 15 ML; Start 09/07/16 at 09:00 Famotidine (Pepcid) 40 mg DAILY GTB Last administered on 09/27/16 11:35; Admin Dose 40 MG; Start 09/07/16 at 09:00 Lansoprazole (Prevacid) 30 mg BID@,18 GTB Last administered on 09/27/16 06:48 ; Admin Dose 30 MG; Start 09/07/16 at 06:00 Levetiracetam (Keppra Liquid) 500 mg BID GTB Last administered on 09/27/16 11: 36; Admin Dose 500 MG; Start 09/07/16 at 09:00 Metoclopramide HCl (Reglan) 5 mg Q8H PRN GTB NAUSEA AND/OR VOMITING; Start 09/06 at 22:30 Sucralfate (Carafate Susp) 1 gm BID GTB Last administered on 09/27/16 11:36; Admin Dose 1 GM; Start 09/07/16 at 09:00 Ondansetron HCl (Zofran Inj) 4 mg Q6H PRN IV NAUSEA AND/OR VOMITING Last administered on 09/17/16 00:52; Admin Dose 4 MG; Start 09/06/16 at 22:30 Morphine Sulfate (morphine) 2 mg Q4H PRN IV PAIN LEVEL 7-10 Last administered on 09/16/16 20:19; Admin Dose 2 MG; Start 09/06/16 at 22:30 Metoclopramide HCl (Reglan) 5 mg Q6H PRN IV RESIDUALS > 100; Start 09/10/16 at 19:00 Clonidine (Catapres) 0.1 mg Q6H PRN GTB ELEVATED SYSTOLIC BP Last administered on 09/15/16 07:04; Admin Dose 0.1 MG; Start 09/13/16 at 23:00 Hydralazine HCl (Apresoline) 10 mg Q6H PRN IV ELEVATED SYSTOLIC BP Last administered on 09/15/16 02:08; Admin Dose 10 MG; Start 09/15/16 at 01:50 Collagenase (Santyl) 1 applic DAILY TOP Last administered on 09/27/16 11:36; Admin Dose 1 APPLIC; Start 09/18/16 at 09:00 Glycopyrrolate (Robinul) 1 mg Q8 GTB Last administered on 09/27/16 06:48; Admin Dose 1 MG; Start 09/19/16 at 09:30 Amikacin Sulfate AMIKACIN PER PHARMACY NOTE XX ; Start 09/24/16 at 14:00 Dextrose/Sodium Chloride (D5-1/2ns) 1,000 ml @ 50 mls/hr Q20H IV ; Start at 16:00 KRISTOPHER SOTO Sep 27, 2016 16:11
--- NOTE | 2016-09-27 23:31 | EN ---
Date/Time of Note Date/Time of Note DATE: 09/27/16 TIME: 23:30 Event Note Surgery Surgery Event Note The OR schedule andre today unable to place the permcath plan for permcath tomorrow AILYN MENJIVAR MD Sep 27, 2016 23:31
[2016-09-28] VITALS (42 sets, daily range): BP systolic 93–233; BP diastolic 41–79; PULSE 82–103; RESP 12–21
[2016-09-28] MEDS: LEVALBUTEROL (HFA) 15 GM INHALER INH SCH ×4 (01:09→20:40)
[2016-09-28] MEDS: IPRATROPIUM (HFA) 12.9 GM INHALER INH SCH ×4 (01:09→20:41)
[2016-09-28] MEDS: GLYCOPYRROLATE 1 MG TAB GTB SCH ×3 (05:07→20:31)
[2016-09-28] MEDS: LANSOPRAZOLE 30 MG CAP GTB SCH ×2 (05:07→18:23)
[2016-09-28] MEDS ORDERED: CEFAZOLIN 1 GM INJ ONE (07:00)
[2016-09-28] MEDS ORDERED: DEXTROSE 50% 50 ML SYRINGE ONE (07:58)
[2016-09-28] MEDS ORDERED: DEXTROSE 10% 1,000 ML IV SCH (08:30)
[2016-09-28] MEDS ORDERED: DEXTROSE 50% 50 ML SYRINGE IV ONE (08:30)
[2016-09-28] MEDS: COLLAGENASE 30 GM TUBE TOP SCH (09:00)
[2016-09-28] MEDS ORDERED: GLUCOSE GEL 15 GRAM TUBE BUCCAL PRN (09:00)
[2016-09-28] MEDS ORDERED: DEXTROSE 50% 50 ML SYRINGE IV PRN (09:00)
[2016-09-28] MEDS ORDERED: GLUCAGON 1 MG INJ IM PRN (09:00)
[2016-09-28] MEDS ORDERED: GLUCOSE GEL 15 GRAM TUBE PO PRN ×2 (09:00)
[2016-09-28] MEDS: INSULIN ASPART [NOVOLOG] 3 ML PEN SC SCH ×4 (09:00→23:21)
[2016-09-28] MEDS ORDERED: LIDOCAINE 1% (MPF) 30 ML INJ ONE (09:05)
[2016-09-28] MEDS ORDERED: IOHEXOL 300MG/ML 30 ML BTL ONE (09:10)
[2016-09-28 10:17] LABS: ADD SCAN DIFF NO
[2016-09-28 10:18] LABS: ABNORMAL IP MESSAGE 1; BASOPHILS % 0.4 % (0.0-2.0); EOSINOPHILS # 0.1 10^3/ul (0.0-0.5); EOSINOPHILS % 1.5 % (0.0-7.0); HEMATOCRIT 24.1 % (42.0-52.0); LYMPHOCYTES # 0.4 10^3/ul (0.8-2.9); LYMPHOCYTES % 6.7 % (15.0-51.0); MEAN CORPUSCULAR HGB CONC 33.2 g/dl (32.0-37.0); MEAN CORPUSCULAR VOLUME 93.4 fl (82.0-101.0); MEAN PLATELET VOLUME 9.9 fl (7.4-10.4); MONOCYTE # 0.8 10^3/ul (0.3-0.9); MONOCYTES % 15.1 % (0.0-11.0); NEUTROPHIL # 3.9 10^3/ul (1.6-7.5); NEUTROPHILS % 75.3 % (39.0-77.0); RED BLOOD COUNT 2.58 10^6/ul (4.70-6.10); RED CELL DISTRIBUTION WIDTH 16.8 % (11.5-14.5); WHITE BLOOD COUNT 5.2 10^3/ul (4.8-10.8)
[2016-09-28 10:24] LABS: PLATELET COUNT 61 10^3/UL (140-415)
[2016-09-28 10:34] LABS: POTASSIUM 3.6 mmol/L (3.5-5.1)
[2016-09-28 10:37] LABS: CREATININE 2.49 mg/dl (0.61-1.24)
[2016-09-28 10:38] LABS: CALCIUM 7.2 mg/dl (8.4-10.2)
--- NOTE | 2016-09-28 10:44 | OPPN ---
Date/Time of Note Date/Time of Note DATE: 09/28/16 TIME: 10:42 Operative/Procedure Note Pre-Operative Diagnosis ESRD Post-Operative Diagnosis ESRD Procedure Permcath placement Surgeon: AILYN MENJIAVR MD Implants/Grafts: Not applicable Estimated blood loss: none Specimens: Not Applicable Complications: None Anesthesia type: AILYN BOWDEN MD Sep 28, 2016 10:44
[2016-09-28] MEDS: HEPARIN 1000 UNITS/ML 10 ML INJ ONE ×2 (10:48→11:10)
--- NOTE | 2016-09-28 11:07 | RADRPT ---
PROCEDURE: Fluoroscopic guidance with radiographic images during right chest wall tunneled hemodia lysis catheter placement. CLINICAL INDICATION: Renal failure. Hemodialysis catheter placement TECHNIQUE: 3 radiographs were obtained during right chest wall tunneled hemodialysis catheter place d. COMPARISON: None available FINDINGS: 0.1 minutes of fluoroscopy time was utilized during right chest wall tunneled hemodialysis catheter placement. Three radiographs were obtained during the procedure in progress for guidance. Images d emonstrate a wire overlying the right atrium. Final image demonstrates a right chest wall hemodialy sis catheter in place. Procedure was performed by Dr. Prado. IMPRESSION: 1. Fluoroscopic guidance with x-ray images obtained for guidance during right chest wall tunneled h emodialysis catheter placement. RPTAT: AA .Isac Fox MD, MD Date Time Electronically viewed and signed by .Isac Fox MD, MD on 09/28/2016 11:07 .B/
--- NOTE | 2016-09-28 11:09 | OPR ---
DATE OF OPERATION: PREOPERATIVE DIAGNOSIS: Renal failure. POSTOPERATIVE DIAGNOSIS: Renal failure. OPERATION PERFORMED: Right internal jugular vein tunneled hemodialysis catheter placement. SURGEON: Mark Prado MD ANESTHESIA: Local plus IV sedation. CONSENT: Risks, benefits, complications, alternative therapies explained to the patient and the [facility], consent obtained. OPERATIVE TECHNIQUE: The patient was placed in supine position, prepped and draped in usual sterile fashion. Lidocaine 1% was used throughout the operation for local anesthesia. Under ultrasonic gu idance, access was gained in the right internal jugular vein. Guidewire was advanced through withou t any difficulty. Subcutaneous tissues were dilated. A 19 cm tunneled hemodialysis catheter was br ought into the field and advanced into the subcutaneous tunnel, right internal jugular vein and supe rior vena cava, all under fluoroscopic guidance. The tip was placed at the junction of the superior vena cava and right atrium. Both ports of the catheter were aspirated and injected using hepariniz ed saline solution. Contrast venography was done. No evidence of any bleeding was noted. The neck site and exit site were closed using a single 3-0 Vicryl suture in interrupted fashion. The cathet er was also secured to the skin using 2-0 Prolene suture. The patient tolerated the procedure well. Dictated By: MARK GREENBERG/NIKOLAI Conf#: [id number] DID#: [id number]
[2016-09-28] MEDS ORDERED: EPINEPHrine 0.1 MG/ML SYG ONE (11:15)
[2016-09-28] MEDS ORDERED: EPHEDrine SULFATE 50 MG/5 ML SYG ONE (11:15)
--- NOTE | 2016-09-28 11:19 | CONS ---
Date/Time of Note Date/Time of Note DATE: 09/28/16 TIME: 11:19 Assessment/Plan Assessment/Plan Chief Complaint/Hosp Course SUBJECTIVE: No acute changes. S/p low grade temps, currently afebrile, nad INDWELLINGS: Left IJ litzy, trach, PEG. Abx: Amikacin PHYSICAL EXAMINATION: GENERAL: This is a well-developed, fragile, chronically ill-appearing, middle- aged man who is lying comfortably in bed. HEENT: Head atraumatic, normocephalic. Sclerae anicteric. Buccal mucosa dry. NECK: Supple. Tracheostomy present. CHEST: Rise symmetrical. Breath sounds diminished. HEART: S1, S2. ABDOMEN: Soft, bowel tones present. EXTREMITIES: Without cyanosis. Contractured. ASSESSMENT: 1. Status post septic shock. 2. Multiple decubitus with wound culture growing multi-drug resistant organisms ==> on Amikacin. 3. Acute on chronic kidney disease, hemodialysis dependent. 4. Encephalopathy. 5. Seizure disorder. 6. ALLERGIC TO ZITHROMAX, ZOSYN, AND ERYTHROMYCIN. PLAN: Clinically stable. Continue abx, local wound care, pending permacath placement DW staff Problems: Consultation Date/Type/Reason Admit Date/Time Sep 06, 2016 at 22:27 Initial Consult Date 09/07/16 Type of Consultation: id Referring Provider: FREDDY COELLO MD Exam/Review of Systems Vital Signs Vitals Vital Signs Date Time Temp Pulse Resp B/P Pulse Ox O2 Delivery O2 Flow Rate FiO2 09/28/16 11:07 98.5 09/28/16 11:01 91 14 186/44 100 Mechanical Ventilator 09/28/16 09:16 45 Intake and Output 09/27/16 09/27/16 09/28/16 15:00 23:00 07:00 Intake Total 25 ml 450 ml Output Total 100 ml Balance -75 ml 450 ml Results Result Diagram: 09/28/1692709/28/1620 Results 24 hrs Laboratory Tests Test 09/28/16 07:43 09/28/16 07:45 09/28/16 08:25 09/28/16 09:20 Bedside Glucose 58 L 52 L 104 Anion Gap 10 Blood Urea Nitrogen 70 H Calcium Level 7.2 L Carbon Dioxide Level 25 Chloride Level 100 Creatinine 2.49 H Glucose Level 62 #L Potassium Level 3.6 Sodium Level 131 L Test 09/28/16 09:28 Basophils # 0.0 Basophils % 0.4 Eosinophils # 0.1 Eosinophils % 1.5 Hematocrit 24.1 #L Hemoglobin 8.0 #L Lymphocytes # 0.4 L Lymphocytes % 6.7 L Mean Corpuscular Hemoglobin 31.0 Mean Corpuscular Hemoglobin Concent 33.2 Mean Corpuscular Volume 93.4 Mean Platelet Volume 9.9 Monocytes # 0.8 Monocytes % 15.1 H Neutrophils # 3.9 Neutrophils % 75.3 Nucleated Red Blood Cells # 0.0 Nucleated Red Blood Cells % 0.0 Platelet Count 61 #L Red Blood Count 2.58 #L Red Cell Distribution Width 16.8 H White Blood Count 5.2 Medications Medications Current Medications Acetaminophen (Tylenol Liquid) 640 mg Q6H PRN GTB PAIN OR TEMP ABOVE 38C; Start 09/06/16 at 22:30 Allopurinol (Zyloprim) 200 mg DAILY GTB Last administered on 09/27/16 11:35; Admin Dose 200 MG; Start 09/07/16 at 09:00 Ascorbic Acid (Vitamin C) 500 mg BID GTB Last administered on 09/27/16 20:47; Admin Dose 500 MG; Start 09/07/16 at 09:00 Calcitriol (Rocaltrol) 0.25 mcg DAILY GTB Last administered on 09/27/16 11:35; Admin Dose 0.25 MCG; Start 09/07/16 at 09:00 Chlorhexidine Gluconate (Peridex) 15 ml BID MM Last administered on 09/27/16 20 :47; Admin Dose 15 ML; Start 09/07/16 at 09:00 Famotidine (Pepcid) 40 mg DAILY GTB Last administered on 09/27/16 11:35; Admin Dose 40 MG; Start 09/07/16 at 09:00 Lansoprazole (Prevacid) 30 mg BID@18 GTB Last administered on 09/27/16 18:28 ; Admin Dose 30 MG; Start 09/07/16 at 06:00 Levetiracetam (Keppra Liquid) 500 mg BID GTB Last administered on 09/27/16 20: 47; Admin Dose 500 MG; Start 09/07/16 at 09:00 Metoclopramide HCl (Reglan) 5 mg Q8H PRN GTB NAUSEA AND/OR VOMITING; Start 09/06 at 22:30 Sucralfate (Carafate Susp) 1 gm BID GTB Last administered on 09/27/16 20:47; Admin Dose 1 GM; Start 09/07/16 at 09:00 Ondansetron HCl (Zofran Inj) 4 mg Q6H PRN IV NAUSEA AND/OR VOMITING Last administered on 09/17/16 00:52; Admin Dose 4 MG; Start 09/06/16 at 22:30 Morphine Sulfate (morphine) 2 mg Q4H PRN IV PAIN LEVEL 7-10 Last administered on 09/16/16 20:19; Admin Dose 2 MG; Start 09/06/16 at 22:30 Metoclopramide HCl (Reglan) 5 mg Q6H PRN IV RESIDUALS > 100; Start 09/10/16 at 19:00 Clonidine (Catapres) 0.1 mg Q6H PRN GTB ELEVATED SYSTOLIC BP Last administered on 09/15/16 07:04; Admin Dose 0.1 MG; Start 09/13/16 at 23:00 Hydralazine HCl (Apresoline) 10 mg Q6H PRN IV ELEVATED SYSTOLIC BP Last administered on 09/15/16 02:08; Admin Dose 10 MG; Start 09/15/16 at 01:50 Collagenase (Santyl) 1 applic DAILY TOP Last administered on 09/27/16 11:36; Admin Dose 1 APPLIC; Start 09/18/16 at 09:00 Glycopyrrolate (Robinul) 1 mg Q8 GTB Last administered on 09/27/16 16:23; Admin Dose 1 MG; Start 09/19/16 at 09:30 Amikacin Sulfate AMIKACIN PER PHARMACY NOTE XX ; Start 09/24/16 at 14:00 Sodium Chloride/ Dextrose (Nacl/D10w) 1,019.25 ml @ 50 mls/hr [id number] IV ; Start 09/28/16 at 09:00 Insulin Aspart (Novolog Insulin Pen) NOVOLOG *MILD* ALGORI... Q4 SC ; Start 09/28 at 09:00 Miscellaneous Information 1 ea NOTE XX ; Start 09/28/16 at 09:00 Glucose (Glutose) 15 gm Q15M PRN PO DECREASED GLUCOSE; Start 09/28/16 at 09:00 Glucose (Glutose) 22.5 gm Q15M PRN PO DECREASED GLUCOSE; Start 09/28/16 at 09:00 Dextrose (D50w Syringe) 25 ml Q15M PRN IV DECREASED GLUCOSE; Start 09/28/16 at 09:00 Dextrose (D50w Syringe) 50 ml Q15M PRN IV DECREASED GLUCOSE; Start 09/28/16 at 09:00 Glucagon (Glucagen) 1 mg Q15M PRN IM DECREASED GLUCOSE; Start 09/28/16 at 09:00 Glucose (Glutose) 15 gm Q15M PRN BUCCAL DECREASED GLUCOSE; Start 09/28/16 at 09: 00 ARUN DIANA NP Sep 28, 2016 11:19
[2016-09-28] MEDS ORDERED: MEPERIDINE 25 MG INJ IV PRN (11:30)
[2016-09-28] MEDS ORDERED: hydrALAzine 20 MG INJ IV PRN (11:30)
[2016-09-28] MEDS ORDERED: EPHEDrine SULFATE 50 MG/5 ML SYG IV PRN (11:30)
[2016-09-28] MEDS ORDERED: LABETALOL HCL 20MG INJ IV PRN (11:30)
[2016-09-28] MEDS ORDERED: HYDROmorphONE (0.2 MG/ML) 10ML SYG IV PRN ×3 (11:30)
[2016-09-28] MEDS: CHLORHEXIDINE GLUCONATE 15 ML UD CUP MM SCH ×2 (13:06→20:26)
[2016-09-28] MEDS: SUCRALFATE (100 MG/ML) 10ML CUP GTB SCH ×2 (13:07→20:26)
[2016-09-28] MEDS: FAMOTIDINE 20 MG TAB GTB SCH (13:07)
[2016-09-28] MEDS: CALCITRIOL 0.25 MCG CAP GTB SCH (13:07)
[2016-09-28] MEDS: SEVELAMER CARBONATE 2.4 GM PKT GTB SCH ×3 (13:07→18:23)
[2016-09-28] MEDS: SODIUM CHLORIDE 23.4% 77 MEQ in DEXTROSE 10% 1,000 ML IV SCH ×2 (13:10→23:22)
[2016-09-28] MEDS: ALLOPURINOL 100 MG TAB GTB SCH (13:10)
[2016-09-28] MEDS: ASCORBIC ACID 500 MG TAB GTB SCH ×2 (13:13→20:31)
--- NOTE | 2016-09-28 13:18 | PN ---
DATE: 09/28/2016 SUBJECTIVE: The patient had PermCath placement for dialysis access earlier this morning and came hadley k to the medical floor. His breathing appears unlabored with the ventilator support. His mental st atus is the same. OBJECTIVE: VITAL SIGNS: Stable. Temperature is 98.5, blood pressure is slightly high 186/44, probably due to stress from surgical intervention and from moving back and forth from the bed to the gurney. His he art rate is 100, respiratory rate is 14, pulse oximetry shows 94% saturation. NECK: Tracheal secretions are clear. No bleeding is seen. HEART: Regular rhythm. CHEST: Breath sounds are diminished in the lower lung [place], otherwise clear. ABDOMEN: Soft. G-tube feeding is on hold, to be resumed later after completion of the vascular pro cedure. EXTREMITIES: Show generalized edema. LABORATORY DATA: Today shows WBC of 5200, hemoglobin 8, hematocrit 24.1, platelets are decreased at 61,000. The chemistry panel shows sodium 131, potassium 3.6, bicarbonate of 25, BUN 70, creatinine 2.49, and glucose is 62. IMPRESSION: 1. Chronic respiratory failure, ventilator dependent. 2. Acute renal failure on dialysis. 3. Chronic anemia. 4. History of seizure disorder. 5. Chronic encephalopathy. 6. History of developmental delay. 7. Pancytopenia. PLAN: 1. Continue long-term ventilator support. 2. He is scheduled to have dialysis today and also get blood transfusion to correct his anemia. 3. Continue G-tube feedings and hydration once the feedings are resumed. 4. Discussed with Dr. Mcelroy this morning over the phone about the patient's condition. From pul [facility] side, discharge planning could be started for returning him back to his long-term care facili ty. Ventilator support needs to be continued and dialysis also needs to be continued, probably for long-term as per the marine electronics repairer. Dictated By: VEENA STREETER MD SR/NIKOLAI Conf#: [id number] DID#: [id number]
[2016-09-28] MEDS: LEVETIRACETAM (100 MG/ML) 5ML CUP GTB SCH ×2 (13:23→20:26)
--- NOTE | 2016-09-28 14:33 | PN ---
Date/Time of Note Date/Time of Note DATE: 09/28/16 TIME: 14:31 Assessment/Plan VTE Prophylaxis VTE Prophylaxis Intervention: SCD's Lines/Catheters IV [facility] Type (from [facility] Central Line Central line still needed: Yes Urinary Cath still in place: Yes Reason Cath still needed: urinary retention Assessment/Plan Chief Complaint/Hosp Course ASSESSMENT AND PLAN: 1. Severe anemia 2 GI bleed. Continue to monitor hemoglobin and hematocrit. Dr. Singh is following in gastroenterology consultation. 2. Hypovolemic shock, resolved. 3. Acute kidney failure on chronic kidney disease. Continue to monitor BUN and creatinine. Dr. Mk Purdy is following in nephrology consultation. Patient with worsening renal function. Started on Hemodialysis during this admission. 4. Pancytopenia. 5. Ventilator-dependent respiratory failure. 6. Possible healthcare-acquired pneumonia. Dr. Aragon is following in pulmonology consultation. Continue ventilator support, bronchodilators. Status post treatment. 7. Dysphagia with PEG. 8. History of seizure disorder. Continue patient on Keppra. 9. Diastolic dysfunction congestive heart failure with preserved ejection fraction of 60%. 10. S/p sepsis. Dr. Guy is following patient in infectious disease consultation. 11. Status post cerebrovascular accident, status post craniotomy. 12. Mental retardation. Continue Protonix for peptic ulcer disease prophylaxis. Further recommendations based on clinical course. Plan of care discussed with Dr. Mcelroy. Problems: Subjective 24 Hr Interval Summary Free Text/Dictation Patient with drop in Hbg, s/p blood transfusion, s/p permacath placement, continue to monitor H&H. Exam/Review of Systems Vital Signs Vitals Vital Signs Date Time Temp Pulse Resp B/P Pulse Ox O2 Delivery O2 Flow Rate FiO2 09/28/16 13:00 98.2 94 14 118/58 100 Mechanical Ventilator 09/28/16 11:10 60 Intake and Output 09/27/16 09/27/16 09/28/16 15:00 23:00 07:00 Intake Total 25 ml 450 ml Output Total 100 ml Balance -75 ml 450 ml Exam Constitutional: alert, well developed Head: atraumatic, normocephalic Eyes: nl conjunctiva ENMT: nl external ears & nose Neck: jvd, supple Respiratory: clear to auscultation Cardiovascular: regular rate and rhythm Gastrointestinal: nl liver, spleen, soft Genitourinary - Male: nl penis, other ( Brar catheter ) Musculoskeletal: nl extremities to inspection, Extremities: normal pulses, bilateral LE s/p vascular intervention Results Result Diagram: 09/28/1628 09/28/16919 Results 24 hrs Laboratory Tests Test 09/28/16 07:43 09/28/16 07:45 09/28/16 08:25 09/28/16 09:20 Bedside Glucose 58 L 52 L 104 Anion Gap 10 Blood Urea Nitrogen 70 H Calcium Level 7.2 L Carbon Dioxide Level 25 Chloride Level 100 Creatinine 2.49 H Glucose Level 62 #L Potassium Level 3.6 Sodium Level 131 L Test 09/28/16 09:28 09/28/16 13:22 Basophils # 0.0 Basophils % 0.4 Eosinophils # 0.1 Eosinophils % 1.5 Hematocrit 24.1 #L Hemoglobin 8.0 #L Lymphocytes # 0.4 L Lymphocytes % 6.7 L Mean Corpuscular Hemoglobin 31.0 Mean Corpuscular Hemoglobin Concent 33.2 Mean Corpuscular Volume 93.4 Mean Platelet Volume 9.9 Monocytes # 0.8 Monocytes % 15.1 H Neutrophils # 3.9 Neutrophils % 75.3 Nucleated Red Blood Cells # 0.0 Nucleated Red Blood Cells % 0.0 Platelet Count 61 #L Red Blood Count 2.58 #L Red Cell Distribution Width 16.8 H White Blood Count 5.2 Bedside Glucose 71 Medications Medications Current Medications Acetaminophen (Tylenol Liquid) 640 mg Q6H PRN GTB PAIN OR TEMP ABOVE 38C; Start 09/06/16 at 22:30 Allopurinol (Zyloprim) 200 mg DAILY GTB Last administered on 09/28/16 13:10; Admin Dose 200 MG; Start 09/07/16 at 09:00 Ascorbic Acid (Vitamin C) 500 mg BID GTB Last administered on 09/28/16 13:13; Admin Dose 500 MG; Start 09/07/16 at 09:00 Calcitriol (Rocaltrol) 0.25 mcg DAILY GTB Last administered on 09/28/16 13:07; Admin Dose 0.25 MCG; Start 09/07/16 at 09:00 Chlorhexidine Gluconate (Peridex) 15 ml BID MM Last administered on 09/28/16 13 :06; Admin Dose 15 ML; Start 09/07/16 at 09:00 Famotidine (Pepcid) 40 mg DAILY GTB Last administered on 09/28/16 13:07; Admin Dose 40 MG; Start 09/07/16 at 09:00 Lansoprazole (Prevacid) 30 mg BID@18 GTB Last administered on 09/27/16 18:28 ; Admin Dose 30 MG; Start 09/07/16 at 06:00 Levetiracetam (Keppra Liquid) 500 mg BID GTB Last administered on 09/28/16 13: 23; Admin Dose 500 MG; Start 09/07/16 at 09:00 Metoclopramide HCl (Reglan) 5 mg Q8H PRN GTB NAUSEA AND/OR VOMITING; Start 09/06 at 22:30 Sucralfate (Carafate Susp) 1 gm BID GTB Last administered on 09/28/16 13:07; Admin Dose 1 GM; Start 09/07/16 at 09:00 Ondansetron HCl (Zofran Inj) 4 mg Q6H PRN IV NAUSEA AND/OR VOMITING Last administered on 09/17/16 00:52; Admin Dose 4 MG; Start 09/06/16 at 22:30 Morphine Sulfate (morphine) 2 mg Q4H PRN IV PAIN LEVEL 7-10 Last administered on 09/16/16 20:19; Admin Dose 2 MG; Start 09/06/16 at 22:30 Metoclopramide HCl (Reglan) 5 mg Q6H PRN IV RESIDUALS > 100; Start 09/10/16 at 19:00 Clonidine (Catapres) 0.1 mg Q6H PRN GTB ELEVATED SYSTOLIC BP Last administered on 09/15/16 07:04; Admin Dose 0.1 MG; Start 09/13/16 at 23:00 Hydralazine HCl (Apresoline) 10 mg Q6H PRN IV ELEVATED SYSTOLIC BP Last administered on 09/15/16 02:08; Admin Dose 10 MG; Start 09/15/16 at 01:50 Collagenase (Santyl) 1 applic DAILY TOP Last administered on 09/28/16 09:00; Admin Dose 1 APPLIC; Start 09/18/16 at 09:00 Glycopyrrolate (Robinul) 1 mg Q8 GTB Last administered on 3/2/17at 16:23; Admin Dose 1 MG; Start 09/19/16 at 09:30 Amikacin Sulfate AMIKACIN PER PHARMACY NOTE XX ; Start 09/24/16 at 14:00 Sodium Chloride/ Dextrose (Nacl/D10w) 1,019.25 ml @ 50 mls/hr [id number] IV ; Start 09/28/16 at 09:00 Insulin Aspart (Novolog Insulin Pen) NOVOLOG *MILD* ALGORI... Q4 SC ; Start 09/28 at 09:00 Miscellaneous Information 1 ea NOTE XX ; Start 09/28/16 at 09:00 Glucose (Glutose) 15 gm Q15M PRN PO DECREASED GLUCOSE; Start 09/28/16 at 09:00 Glucose (Glutose) 22.5 gm Q15M PRN PO DECREASED GLUCOSE; Start 09/28/16 at 09:00 Dextrose (D50w Syringe) 25 ml Q15M PRN IV DECREASED GLUCOSE; Start 09/28/16 at 09:00 Dextrose (D50w Syringe) 50 ml Q15M PRN IV DECREASED GLUCOSE; Start 09/28/16 at 09:00 Glucagon (Glucagen) 1 mg Q15M PRN IM DECREASED GLUCOSE; Start 09/28/16 at 09:00 Glucose (Glutose) 15 gm Q15M PRN BUCCAL DECREASED GLUCOSE; Start 09/28/16 at 09: 00 QUIN ORTIZ Sep 28, 2016 14:33
--- NOTE | 2016-09-28 16:15 | CONS ---
Date/Time of Note Date/Time of Note DATE: 09/28/16 TIME: 16:03 Assessment/Plan Assessment/Plan Additional Assessment/Plan 1. Acute kidney injury on possible chronic kidney disease unknown stage secondary to severe prerenal azotemia causing ischemic acute tubular necrosis in the setting of severe anemia.- continue to have Anuria with uremic symptoms and GI bleeding- started on HD during this admission 2. Severe anemia,s/p PRBC 3. Chronic respiratory failure, status post tracheostomy, on vent. 4. Pancytopenia. 5. History of a seizure disorder. 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 HD placement, Hepatitis panel, HIV, Case management for outpatient HD placement we will continue HD three times a week Total Time spent in Patient follow up assessment, Updating patient/Family and Communicating with Nursing staff is >45 minutes Consultation Date/Type/Reason Admit Date/Time Sep 06, 2016 at 22:27 Initial Consult Date Aug Type of Consultation: NEPHROLOGy Reason for Consultation MICHELLE with Uremic complications including bleeding Referring Provider: FREDDY COELLO MD 24 HR Interval Summary Free Text/Dictation plan for permacath today, BP stable HD today, pt will need HD placement in [facility] Exam/Review of Systems Vital Signs Vitals Vital Signs Date Time Temp Pulse Resp B/P Pulse Ox O2 Delivery O2 Flow Rate FiO2 09/28/16 14:32 91 14 98 45 09/28/16 13:00 98.2 118/58 Mechanical Ventilator Intake and Output 09/27/16 09/27/16 09/28/16 14:59 22:59 06:59 Intake Total 25 ml 450 ml Output Total 100 ml Balance -75 ml 450 ml Exam GENERAL: chronically ill-appearing, middle-aged man who is lying comfortably in bed. HEENT: Head atraumatic, normocephalic. Sclerae anicteric. Buccal mucosa dry. NECK: Supple. Tracheostomy present. CHEST: Rise symmetrical. Breath sounds diminished. HEART: S1, S2. ABDOMEN: Soft, bowel tones present. EXTREMITIES: Without cyanosis. Contractured. + litzy catheter present Results Result Diagram: 09/28/16 0928 09/28/16 0920 Results 24 hrs Laboratory Tests Test 3/3/17 07:43 09/28/16 07:45 09/28/16 08:25 09/28/16 09:20 Bedside Glucose 58 L 52 L 104 Anion Gap 10 Blood Urea Nitrogen 70 H Calcium Level 7.2 L Carbon Dioxide Level 25 Chloride Level 100 Creatinine 2.49 H Glucose Level 62 #L Potassium Level 3.6 Sodium Level 131 L Test 09/28/16 09:28 09/28/16 13:22 Basophils # 0.0 Basophils % 0.4 Eosinophils # 0.1 Eosinophils % 1.5 Hematocrit 24.1 #L Hemoglobin 8.0 #L Lymphocytes # 0.4 L Lymphocytes % 6.7 L Mean Corpuscular Hemoglobin 31.0 Mean Corpuscular Hemoglobin Concent 33.2 Mean Corpuscular Volume 93.4 Mean Platelet Volume 9.9 Monocytes # 0.8 Monocytes % 15.1 H Neutrophils # 3.9 Neutrophils % 75.3 Nucleated Red Blood Cells # 0.0 Nucleated Red Blood Cells % 0.0 Platelet Count 61 #L Red Blood Count 2.58 #L Red Cell Distribution Width 16.8 H White Blood Count 5.2 Bedside Glucose 71 Medications Medications Current Medications Acetaminophen (Tylenol Liquid) 640 mg Q6H PRN GTB PAIN OR TEMP ABOVE 38C; Start 09/06/16 at 22:30 Allopurinol (Zyloprim) 200 mg DAILY GTB Last administered on 09/28/16 13:10; Admin Dose 200 MG; Start 09/07/16 at 09:00 Ascorbic Acid (Vitamin C) 500 mg BID GTB Last administered on 09/28/16 13:13; Admin Dose 500 MG; Start 09/07/16 at 09:00 Calcitriol (Rocaltrol) 0.25 mcg DAILY GTB Last administered on 09/28/16 13:07; Admin Dose 0.25 MCG; Start 09/07/16 at 09:00 Chlorhexidine Gluconate (Peridex) 15 ml BID MM Last administered on 09/28/16 13 :06; Admin Dose 15 ML; Start 09/07/16 at 09:00 Famotidine (Pepcid) 40 mg DAILY GTB Last administered on 09/28/16 13:07; Admin Dose 40 MG; Start 09/07/16 at 09:00 Lansoprazole (Prevacid) 30 mg BID@,18 GTB Last administered on 09/27/16 18:28 ; Admin Dose 30 MG; Start 09/07/16 at 06:00 Levetiracetam (Keppra Liquid) 500 mg BID GTB Last administered on 09/28/16 13: 23; Admin Dose 500 MG; Start 09/07/16 at 09:00 Metoclopramide HCl (Reglan) 5 mg Q8H PRN GTB NAUSEA AND/OR VOMITING; Start 09/06 at 22:30 Sucralfate (Carafate Susp) 1 gm BID GTB Last administered on 09/28/16 13:07; Admin Dose 1 GM; Start 09/07/16 at 09:00 Ondansetron HCl (Zofran Inj) 4 mg Q6H PRN IV NAUSEA AND/OR VOMITING Last administered on 09/17/16 00:52; Admin Dose 4 MG; Start 09/06/16 at 22:30 Morphine Sulfate (morphine) 2 mg Q4H PRN IV PAIN LEVEL 7-10 Last administered on 09/16/16 20:19; Admin Dose 2 MG; Start 09/06/16 at 22:30 Metoclopramide HCl (Reglan) 5 mg Q6H PRN IV RESIDUALS > 100; Start 09/10/16 at 19:00 Clonidine (Catapres) 0.1 mg Q6H PRN GTB ELEVATED SYSTOLIC BP Last administered on 09/15/16 07:04; Admin Dose 0.1 MG; Start 09/13/16 at 23:00 Hydralazine HCl (Apresoline) 10 mg Q6H PRN IV ELEVATED SYSTOLIC BP Last administered on 09/15/16 02:08; Admin Dose 10 MG; Start 09/15/16 at 01:50 Collagenase (Santyl) 1 applic DAILY TOP Last administered on 09/28/16 09:00; Admin Dose 1 APPLIC; Start 09/18/16 at 09:00 Glycopyrrolate (Robinul) 1 mg Q8 GTB Last administered on 09/28/16 14:51; Admin Dose 1 MG; Start 09/19/16 at 09:30 Amikacin Sulfate AMIKACIN PER PHARMACY NOTE XX ; Start 09/24/16 at 14:00 Sodium Chloride/ Dextrose (Nacl/D10w) 1,019.25 ml @ 50 mls/hr [id number] IV ; Start 09/28/16 at 09:00 Insulin Aspart (Novolog Insulin Pen) NOVOLOG *MILD* ALGORI... Q4 SC ; Start 09/28 at 09:00 Miscellaneous Information 1 ea NOTE XX ; Start 09/28/16 at 09:00 Glucose (Glutose) 15 gm Q15M PRN PO DECREASED GLUCOSE; Start 09/28/16 at 09:00 Glucose (Glutose) 22.5 gm Q15M PRN PO DECREASED GLUCOSE; Start 09/28/16 at 09:00 Dextrose (D50w Syringe) 25 ml Q15M PRN IV DECREASED GLUCOSE; Start 09/28/16 at 09:00 Dextrose (D50w Syringe) 50 ml Q15M PRN IV DECREASED GLUCOSE; Start 09/28/16 at 09:00 Glucagon (Glucagen) 1 mg Q15M PRN IM DECREASED GLUCOSE; Start 09/28/16 at 09:00 Glucose (Glutose) 15 gm Q15M PRN BUCCAL DECREASED GLUCOSE; Start 09/28/16 at 09: 00 KENIA TURCIOS MD Sep 28, 2016 16:13
[2016-09-29] VITALS (22 sets, daily range): BP systolic 80–131; BP diastolic 42–70; PULSE 94–126; RESP 14–27
[2016-09-29] MEDS: IPRATROPIUM (HFA) 12.9 GM INHALER INH SCH ×4 (01:39→20:35)
[2016-09-29] MEDS: LEVALBUTEROL (HFA) 15 GM INHALER INH SCH ×4 (01:39→20:35)
[2016-09-29] MEDS: GLYCOPYRROLATE 1 MG TAB GTB SCH ×3 (05:05→23:58)
[2016-09-29] MEDS: INSULIN ASPART [NOVOLOG] 3 ML PEN SC SCH ×3 (05:05→17:31)
[2016-09-29] MEDS: LANSOPRAZOLE 30 MG CAP GTB SCH ×2 (05:05→17:31)
[2016-09-29] MEDS ORDERED: LIDOCAINE 1% (MDV) 20 ML INJ SC ONE (06:30)
[2016-09-29] MEDS: COLLAGENASE 30 GM TUBE TOP SCH (09:35)
[2016-09-29] MEDS: LEVETIRACETAM (100 MG/ML) 5ML CUP GTB SCH ×2 (09:35→21:07)
[2016-09-29] MEDS: SEVELAMER CARBONATE 2.4 GM PKT GTB SCH ×3 (09:35→17:31)
[2016-09-29] MEDS: SUCRALFATE (100 MG/ML) 10ML CUP GTB SCH ×2 (09:35→21:07)
[2016-09-29] MEDS: AMIKACIN 400 MG in SOD CHLORIDE 0.9% 100 ML IVPB SCH (09:35)
[2016-09-29] MEDS: CALCITRIOL 0.25 MCG CAP GTB SCH (09:35)
[2016-09-29] MEDS: CHLORHEXIDINE GLUCONATE 15 ML UD CUP MM SCH ×2 (09:36→21:07)
[2016-09-29] MEDS: ALLOPURINOL 100 MG TAB GTB SCH (09:36)
[2016-09-29] MEDS: ASCORBIC ACID 500 MG TAB GTB SCH ×2 (09:36→21:07)
[2016-09-29] MEDS: FAMOTIDINE 20 MG TAB GTB SCH (09:36)
--- NOTE | 2016-09-29 10:40 | PN ---
Date/Time of Note Date/Time of Note DATE: 09/29/16 TIME: 10:39 Assessment/Plan VTE Prophylaxis VTE Prophylaxis Intervention: other Lines/Catheters [facility] Permacath Urinary Cath still in place: Yes Reason Cath still needed: skin wounds contaminated by urine Assessment/Plan Chief Complaint/Hosp Course 1. Severe anemia 2 GI bleed. Continue to monitor hemoglobin and hematocrit. Dr. Singh is following in gastroenterology consultation. 2. Hypovolemic shock, resolving. continue IV fluids. 3. Acute kidney failure on chronic kidney disease. continue to monitor BUN and creatinine. Dr. Mk Purdy is following in nephrology consultation. Patient with worsening renal function. Hemodialysis will be started upon hemodialysis catheter placement. 4. Pancytopenia. 5. Ventilator-dependent respiratory failure. 6. Possible healthcare-acquired pneumonia. Dr. Aragon is following in pulmonology consultation. Continue ventilator support, bronchodilators. The patient will continue broad spectrum antibiotics for possible pneumonia. 7. Dysphagia with PEG. 8. History of seizure disorder. Continue patient on Keppra. 9. Diastolic dysfunction congestive heart failure with preserved ejection fraction of 60%. 10. Possible sepsis. Dr. Guy is following patient in infectious disease consultation. 11. Status post cerebrovascular accident, status post craniotomy. 12. Mental retardation. Problems: Subjective 24 Hr Interval Summary Free Text/Dictation Patient is sedated, on vent via trach Exam/Review of Systems Vital Signs Vitals Vital Signs Date Time Temp Pulse Resp B/P Pulse Ox O2 Delivery O2 Flow Rate FiO2 09/29/16 08:15 126 09/29/16 07:55 100.1 18 129/62 98 09/29/16 05:00 45 09/28/16 13:00 Mechanical Ventilator Intake and Output 09/28/16 09/28/16 09/29/16 15:00 23:00 07:00 Intake Total 500 ml 1250 ml Output Total 5 ml 1515 ml Balance 495 ml -265 ml Exam Constitutional: well developed Head: atraumatic, normocephalic Neck: supple Respiratory: diminished breath sounds Cardiovascular: regular rate and rhythm Gastrointestinal: non-tender, soft Results Result Diagram: 09/28/16 0928 09/28/16 0920 Results 24 hrs Laboratory Tests Test 09/28/16 13:22 09/28/16 17:11 09/28/16 22:51 09/29/16 05:01 Bedside Glucose 71 107 111 121 Medications Medications Current Medications Acetaminophen (Tylenol Liquid) 640 mg Q6H PRN GTB PAIN OR TEMP ABOVE 38C; Start 09/06/16 at 22:30 Allopurinol (Zyloprim) 200 mg DAILY GTB Last administered on 09/29/16 09:36; Admin Dose 200 MG; Start 09/07/16 at 09:00 Ascorbic Acid (Vitamin C) 500 mg BID GTB Last administered on 09/29/16 09:36; Admin Dose 500 MG; Start 09/07/16 at 09:00 Calcitriol (Rocaltrol) 0.25 mcg DAILY GTB Last administered on 09/29/16 09:35; Admin Dose 0.25 MCG; Start 09/07/16 at 09:00 Chlorhexidine Gluconate (Peridex) 15 ml BID MM Last administered on 09/29/16 09 :36; Admin Dose 15 ML; Start 09/07/16 at 09:00 Famotidine (Pepcid) 40 mg DAILY GTB Last administered on 09/29/16 09:36; Admin Dose 40 MG; Start 09/07/16 at 09:00 Lansoprazole (Prevacid) 30 mg BID@18 GTB Last administered on 09/29/16 05:05 ; Admin Dose 30 MG; Start 09/07/16 at 06:00 Levetiracetam (Keppra Liquid) 500 mg BID GTB Last administered on 09/29/16 09: 35; Admin Dose 500 MG; Start 09/07/16 at 09:00 Metoclopramide HCl (Reglan) 5 mg Q8H PRN GTB NAUSEA AND/OR VOMITING; Start 09/06 at 22:30 Sucralfate (Carafate Susp) 1 gm BID GTB Last administered on 09/29/16 09:35; Admin Dose 1 GM; Start 09/07/16 at 09:00 Ondansetron HCl (Zofran Inj) 4 mg Q6H PRN IV NAUSEA AND/OR VOMITING Last administered on 09/17/16 00:52; Admin Dose 4 MG; Start 09/06/16 at 22:30 Morphine Sulfate (morphine) 2 mg Q4H PRN IV PAIN LEVEL 7-10 Last administered on 09/16/16 20:19; Admin Dose 2 MG; Start 09/06/16 at 22:30 Metoclopramide HCl (Reglan) 5 mg Q6H PRN IV RESIDUALS > 100; Start 09/10/16 at 19:00 Clonidine (Catapres) 0.1 mg Q6H PRN GTB ELEVATED SYSTOLIC BP Last administered on 09/15/16 07:04; Admin Dose 0.1 MG; Start 09/13/16 at 23:00 Hydralazine HCl (Apresoline) 10 mg Q6H PRN IV ELEVATED SYSTOLIC BP Last administered on 09/15/16 02:08; Admin Dose 10 MG; Start 09/15/16 at 01:50 Collagenase (Santyl) 1 applic DAILY TOP Last administered on 09/29/16 09:35; Admin Dose 1 APPLIC; Start 09/18/16 at 09:00 Glycopyrrolate (Robinul) 1 mg Q8 GTB Last administered on 09/29/16 05:05; Admin Dose 1 MG; Start 09/19/16 at 09:30 Amikacin Sulfate AMIKACIN PER PHARMACY NOTE XX ; Start 09/24/16 at 14:00 Sodium Chloride/ Dextrose (Nacl/D10w) 1,019.25 ml @ 50 mls/hr [id number] IV ; Start 09/28/16 at 09:00 Miscellaneous Information 1 ea NOTE XX ; Start 09/28/16 at 09:00 Glucose (Glutose) 15 gm Q15M PRN PO DECREASED GLUCOSE; Start 09/28/16 at 09:00 Glucose (Glutose) 22.5 gm Q15M PRN PO DECREASED GLUCOSE; Start 09/28/16 at 09:00 Dextrose (D50w Syringe) 25 ml Q15M PRN IV DECREASED GLUCOSE; Start 09/28/16 at 09:00 Dextrose (D50w Syringe) 50 ml Q15M PRN IV DECREASED GLUCOSE; Start 09/28/16 at 09:00 Glucagon (Glucagen) 1 mg Q15M PRN IM DECREASED GLUCOSE; Start 09/28/16 at 09:00 Glucose (Glutose) 15 gm Q15M PRN BUCCAL DECREASED GLUCOSE; Start 09/28/16 at 09: 00 Insulin Aspart (Novolog Insulin Pen) NOVOLOG *MILD* ALGORI... Q6 SC ; Start 09/29 at 00:00 TAI PERRIN Sep 29, 2016 10:40
--- NOTE | 2016-09-29 12:26 | CONS ---
Date/Time of Note Date/Time of Note DATE: 09/29/16 TIME: 12:23 Assessment/Plan Assessment/Plan Additional Assessment/Plan 1. Acute kidney injury on possible chronic kidney disease unknown stage secondary to severe prerenal azotemia causing ischemic acute tubular necrosis in the setting of severe anemia.- continue to have Anuria with uremic symptoms and GI bleeding- started on HD during this admission 2. Severe anemia,s/p PRBC 3. Chronic respiratory failure, status post tracheostomy, on vent. 4. Pancytopenia. 5. History of a seizure disorder. 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, Hepatitis panel, HIV, negative Case management for outpatient HD placement we will continue HD three times a week Total Time spent in Patient follow up assessment, Updating patient/Family and Communicating with Nursing staff is >45 minutes Consultation Date/Type/Reason Admit Date/Time Sep 06, 2016 at 22:27 Initial Consult Date Aug Type of Consultation: NEPHROLOGy Reason for Consultation prgoressed ot ESRD, started on HD Referring Provider: FREDDY COELLO MD 24 HR Interval Summary Free Text/Dictation s/p HD yesterday, Right IJ permacath works good, litzy discontinued Exam/Review of Systems Vital Signs Vitals Vital Signs Date Time Temp Pulse Resp B/P Pulse Ox O2 Delivery O2 Flow Rate FiO2 09/29/16 12:22 120 09/29/16 11:58 100.6 15 105/57 98 09/29/16 05:00 45 09/28/16 13:00 Mechanical Ventilator Intake and Output 09/28/16 09/28/16 09/29/16 15:00 23:00 07:00 Intake Total 500 ml 1250 ml Output Total 5 ml 1515 ml Balance 495 ml -265 ml Exam GENERAL: chronically ill-appearing, middle-aged man who is lying comfortably in bed. HEENT: Head atraumatic, normocephalic. Sclerae anicteric. Buccal mucosa dry. NECK: Supple. Tracheostomy present. CHEST: Rise symmetrical. Breath sounds diminished. HEART: S1, S2. ABDOMEN: Soft, bowel tones present. EXTREMITIES: Without cyanosis. Contractured. + permacath Right IJ Results Result Diagram: 09/28/16 0928 09/28/16 0920 Results 24 hrs Laboratory Tests Test 09/28/16 13:22 09/28/16 17:11 09/28/16 22:51 09/29/16 05:01 Bedside Glucose 71 107 111 121 Test 09/29/16 12:09 Bedside Glucose 74 Medications Medications Current Medications Acetaminophen (Tylenol Liquid) 640 mg Q6H PRN GTB PAIN OR TEMP ABOVE 38C; Start 09/06/16 at 22:30 Allopurinol (Zyloprim) 200 mg DAILY GTB Last administered on 09/29/16 09:36; Admin Dose 200 MG; Start 09/07/16 at 09:00 Ascorbic Acid (Vitamin C) 500 mg BID GTB Last administered on 09/29/16 09:36; Admin Dose 500 MG; Start 09/07/16 at 09:00 Calcitriol (Rocaltrol) 0.25 mcg DAILY GTB Last administered on 09/29/16 09:35; Admin Dose 0.25 MCG; Start 09/07/16 at 09:00 Chlorhexidine Gluconate (Peridex) 15 ml BID MM Last administered on 09/29/16 09 :36; Admin Dose 15 ML; Start 09/07/16 at 09:00 Famotidine (Pepcid) 40 mg DAILY GTB Last administered on 09/29/16 09:36; Admin Dose 40 MG; Start 09/07/16 at 09:00 Lansoprazole (Prevacid) 30 mg BID@,18 GTB Last administered on 09/29/16 05:05 ; Admin Dose 30 MG; Start 09/07/16 at 06:00 Levetiracetam (Keppra Liquid) 500 mg BID GTB Last administered on 09/29/16 09: 35; Admin Dose 500 MG; Start 09/07/16 at 09:00 Metoclopramide HCl (Reglan) 5 mg Q8H PRN GTB NAUSEA AND/OR VOMITING; Start 09/06 at 22:30 Sucralfate (Carafate Susp) 1 gm BID GTB Last administered on 09/29/16 09:35; Admin Dose 1 GM; Start 09/07/16 at 09:00 Ondansetron HCl (Zofran Inj) 4 mg Q6H PRN IV NAUSEA AND/OR VOMITING Last administered on 09/17/16 00:52; Admin Dose 4 MG; Start 09/06/16 at 22:30 Morphine Sulfate (morphine) 2 mg Q4H PRN IV PAIN LEVEL 7-10 Last administered on 09/16/16 20:19; Admin Dose 2 MG; Start 09/06/16 at 22:30 Metoclopramide HCl (Reglan) 5 mg Q6H PRN IV RESIDUALS > 100; Start 09/10/16 at 19:00 Clonidine (Catapres) 0.1 mg Q6H PRN GTB ELEVATED SYSTOLIC BP Last administered on 09/15/16 07:04; Admin Dose 0.1 MG; Start 09/13/16 at 23:00 Hydralazine HCl (Apresoline) 10 mg Q6H PRN IV ELEVATED SYSTOLIC BP Last administered on 09/15/16 02:08; Admin Dose 10 MG; Start 09/15/16 at 01:50 Collagenase (Santyl) 1 applic DAILY TOP Last administered on 09/29/16 09:35; Admin Dose 1 APPLIC; Start 09/18/16 at 09:00 Glycopyrrolate (Robinul) 1 mg Q8 GTB Last administered on 09/29/16 05:05; Admin Dose 1 MG; Start 09/19/16 at 09:30 Amikacin Sulfate AMIKACIN PER PHARMACY NOTE XX ; Start 09/24/16 at 14:00 Sodium Chloride/ Dextrose (Nacl/D10w) 1,019.25 ml @ 50 mls/hr [id number] IV ; Start 09/28/16 at 09:00 Miscellaneous Information 1 ea NOTE XX ; Start 09/28/16 at 09:00 Glucose (Glutose) 15 gm Q15M PRN PO DECREASED GLUCOSE; Start 09/28/16 at 09:00 Glucose (Glutose) 22.5 gm Q15M PRN PO DECREASED GLUCOSE; Start 09/28/16 at 09:00 Dextrose (D50w Syringe) 25 ml Q15M PRN IV DECREASED GLUCOSE; Start 09/28/16 at 09:00 Dextrose (D50w Syringe) 50 ml Q15M PRN IV DECREASED GLUCOSE; Start 09/28/16 at 09:00 Glucagon (Glucagen) 1 mg Q15M PRN IM DECREASED GLUCOSE; Start 09/28/16 at 09:00 Glucose (Glutose) 15 gm Q15M PRN BUCCAL DECREASED GLUCOSE; Start 09/28/16 at 09: 00 Insulin Aspart (Novolog Insulin Pen) NOVOLOG *MILD* ALGORI... Q6 SC ; Start 09/29 at 00:00 KENIA TURCIOS MD Sep 29, 2016 12:26
[2016-09-29 12:41] LABS: POTASSIUM 3.2 mmol/L (3.5-5.1)
[2016-09-29 12:44] LABS: CREATININE 2.47 mg/dl (0.61-1.24)
--- NOTE | 2016-09-29 13:39 | PN ---
DATE: 09/29/2016 PULMONARY FOLLOWUP SUBJECTIVE: The patient is having low-grade fever, initially 100.1, now up to 100.6. His general co ndition is same. He is still poorly responsive and poorly cognitive. OBJECTIVE: VITAL SIGNS: Show blood pressure 105/57, pulse rate of 110, respirations 15, pulse oximetry 98% sat uration with 40% inhaled oxygen concentration. GENERAL: His breathing appears unlabored. He has had no vomiting. No seizure activity. No overt b leeding. NECK: Tracheal secretions are clear. No bleeding is seen. HEART: Regular rhythm with sinus tachycardia. CHEST: Breath sounds are heard bilaterally. Lung chadwick are fairly clear, though somewhat diminish ed in the lower lung chadwick at the bases. ABDOMEN: Soft, not distended. He is tolerating gastrostomy tube feedings. Bowel sounds are presen t. EXTREMITIES: Show generalized edema. The patient had dialysis through the newly placed PermCath. LABORATORY DATA: Today's lab tests show sodium 130, potassium 3.2, bicarbonate of 24, BUN 66, creat inine 2.47, glucose 62. IMPRESSION: 1. Chronic respiratory failure, ventilator-dependent. 2. Acute renal failure, on dialysis. 3. Chronic anemia. 4. History of seizure disorder. 5. Chronic encephalopathy. 6. History of developmental delay. 7. Pancytopenia. PLAN: 1. Continue long-term ventilator support. 2. Continue dialysis as per engagement mgr. 3. If the patient continues to have a fever, obtain a chest x-ray, lab tests and cultures. Antibio tic therapy may be needed and infectious disease followup will be necessary. I discussed the above with the nurse in charge, do the above as planned if the fever continues or goes up. Dictated By: VEENA STREETER MD SR/NTS Conf#: [id number] DID#: [id number]
--- NOTE | 2016-09-29 13:56 | CONS ---
Date/Time of Note Date/Time of Note DATE: 09/29/16 TIME: 13:55 Assessment/Plan Assessment/Plan Chief Complaint/Hosp Course SUBJECTIVE: No acute changes, afebrile, nad INDWELLINGS: Left IJ litzy, trach, PEG. Abx: Amikacin PHYSICAL EXAMINATION: GENERAL: This is a well-developed, fragile, chronically ill-appearing, middle- aged man who is lying comfortably in bed. HEENT: Head atraumatic, normocephalic. Sclerae anicteric. Buccal mucosa dry. NECK: Supple. Tracheostomy present. CHEST: Rise symmetrical. Breath sounds diminished. HEART: S1, S2. ABDOMEN: Soft, bowel tones present. EXTREMITIES: Without cyanosis. Contractured. ASSESSMENT: 1. Status post septic shock. 2. Multiple decubitus with wound culture growing multi-drug resistant organisms ==> on Amikacin. 3. Acute on chronic kidney disease, hemodialysis dependent. 4. Encephalopathy. 5. Seizure disorder. 6. ALLERGIC TO ZITHROMAX, ZOSYN, AND ERYTHROMYCIN. PLAN: Clinically unchanged. Continue abx, local wound care, santos cx prn DW staff Problems: Consultation Date/Type/Reason Admit Date/Time Sep 06, 2016 at 22:27 Initial Consult Date 09/07/16 Type of Consultation: ID Referring Provider: FREDDY COELLO MD Exam/Review of Systems Vital Signs Vitals Vital Signs Date Time Temp Pulse Resp B/P Pulse Ox O2 Delivery O2 Flow Rate FiO2 09/29/16 13:31 115 26 97 45 09/29/16 11:58 100.6 105/57 09/28/16 13:00 Mechanical Ventilator Intake and Output 09/28/16 09/28/16 09/29/16 15:00 23:00 07:00 Intake Total 500 ml 1250 ml Output Total 5 ml 1515 ml Balance 495 ml -265 ml Results Result Diagram: 09/28/16 0928 09/29/16 1156 Results 24 hrs Laboratory Tests Test 09/28/16 17:11 09/28/16 22:51 09/29/16 05:01 09/29/16 11:56 Bedside Glucose 107 111 121 Anion Gap 11 Blood Urea Nitrogen 66 H Calcium Level 8.0 L Carbon Dioxide Level 24 Chloride Level 98 Creatinine 2.47 H Glucose Level 62 L Potassium Level 3.2 L Sodium Level 130 L Test 09/29/16 12:09 Bedside Glucose 74 Medications Medications Current Medications Acetaminophen (Tylenol Liquid) 640 mg Q6H PRN GTB PAIN OR TEMP ABOVE 38C; Start 09/06/16 at 22:30 Allopurinol (Zyloprim) 200 mg DAILY GTB Last administered on 09/29/16 09:36; Admin Dose 200 MG; Start 09/07/16 at 09:00 Ascorbic Acid (Vitamin C) 500 mg BID GTB Last administered on 09/29/16 09:36; Admin Dose 500 MG; Start 09/07/16 at 09:00 Calcitriol (Rocaltrol) 0.25 mcg DAILY GTB Last administered on 09/29/16 09:35; Admin Dose 0.25 MCG; Start 09/07/16 at 09:00 Chlorhexidine Gluconate (Peridex) 15 ml BID MM Last administered on 09/29/16 09 :36; Admin Dose 15 ML; Start 09/07/16 at 09:00 Famotidine (Pepcid) 40 mg DAILY GTB Last administered on 09/29/16 09:36; Admin Dose 40 MG; Start 09/07/16 at 09:00 Lansoprazole (Prevacid) 30 mg BID@18 GTB Last administered on 09/29/16 05:05 ; Admin Dose 30 MG; Start 09/07/16 at 06:00 Levetiracetam (Keppra Liquid) 500 mg BID GTB Last administered on 09/29/16 09: 35; Admin Dose 500 MG; Start 09/07/16 at 09:00 Metoclopramide HCl (Reglan) 5 mg Q8H PRN GTB NAUSEA AND/OR VOMITING; Start 09/06 at 22:30 Sucralfate (Carafate Susp) 1 gm BID GTB Last administered on 09/29/16 09:35; Admin Dose 1 GM; Start 09/07/16 at 09:00 Ondansetron HCl (Zofran Inj) 4 mg Q6H PRN IV NAUSEA AND/OR VOMITING Last administered on 09/17/16 00:52; Admin Dose 4 MG; Start 09/06/16 at 22:30 Morphine Sulfate (morphine) 2 mg Q4H PRN IV PAIN LEVEL 7-10 Last administered on 09/16/16 20:19; Admin Dose 2 MG; Start 09/06/16 at 22:30 Metoclopramide HCl (Reglan) 5 mg Q6H PRN IV RESIDUALS > 100; Start 09/10/16 at 19:00 Clonidine (Catapres) 0.1 mg Q6H PRN GTB ELEVATED SYSTOLIC BP Last administered on 09/15/16 07:04; Admin Dose 0.1 MG; Start 09/13/16 at 23:00 Hydralazine HCl (Apresoline) 10 mg Q6H PRN IV ELEVATED SYSTOLIC BP Last administered on 09/15/16 02:08; Admin Dose 10 MG; Start 09/15/16 at 01:50 Collagenase (Santyl) 1 applic DAILY TOP Last administered on 09/29/16 09:35; Admin Dose 1 APPLIC; Start 09/18/16 at 09:00 Glycopyrrolate (Robinul) 1 mg Q8 GTB Last administered on 09/29/16 05:05; Admin Dose 1 MG; Start 09/19/16 at 09:30 Amikacin Sulfate AMIKACIN PER PHARMACY NOTE XX ; Start 09/24/16 at 14:00 Sodium Chloride/ Dextrose (Nacl/D10w) 1,019.25 ml @ 50 mls/hr [id number] IV ; Start 09/28/16 at 09:00 Miscellaneous Information 1 ea NOTE XX ; Start 09/28/16 at 09:00 Glucose (Glutose) 15 gm Q15M PRN PO DECREASED GLUCOSE; Start 09/28/16 at 09:00 Glucose (Glutose) 22.5 gm Q15M PRN PO DECREASED GLUCOSE; Start 09/28/16 at 09:00 Dextrose (D50w Syringe) 25 ml Q15M PRN IV DECREASED GLUCOSE; Start 09/28/16 at 09:00 Dextrose (D50w Syringe) 50 ml Q15M PRN IV DECREASED GLUCOSE; Start 09/28/16 at 09:00 Glucagon (Glucagen) 1 mg Q15M PRN IM DECREASED GLUCOSE; Start 09/28/16 at 09:00 Glucose (Glutose) 15 gm Q15M PRN BUCCAL DECREASED GLUCOSE; Start 09/28/16 at 09: 00 Insulin Aspart (Novolog Insulin Pen) NOVOLOG *MILD* ALGORI... Q6 SC ; Start 09/29 at 00:00 ARUN DIANA NP Sep 29, 2016 13:56
[2016-09-29 14:06] LABS: ADD SCAN DIFF NO
[2016-09-29 14:08] LABS: ABNORMAL IP MESSAGE 1; HEMATOCRIT 26.5 % (42.0-52.0); HEMOGLOBIN 8.8 g/dl (14.0-18.0); MEAN CORPUSCULAR HEMOGLOBIN 31.3 pg (29.0-33.0); MEAN CORPUSCULAR HGB CONC 33.2 g/dl (32.0-37.0); MEAN CORPUSCULAR VOLUME 94.3 fl (82.0-101.0); RED BLOOD COUNT 2.81 10^6/ul (4.70-6.10); RED CELL DISTRIBUTION WIDTH 16.6 % (11.5-14.5)
[2016-09-29 14:11] LABS: PLATELET COUNT 24 10^3/UL (140-415)
[2016-09-29] MEDS ORDERED: POTASSIUM CHLORIDE (SR) 20 MEQ TAB PO STA (14:15)
[2016-09-29 15:39] LABS: LYMPHOCYTES # 0.1 10^3/ul (0.8-2.9); MONOCYTE # 0.4 10^3/ul (0.3-0.9); NEUTROPHIL # 5.8 10^3/ul (1.6-7.5)
[2016-09-29 15:40] LABS: PLATELET ESTIMATE PLT APPEAR DECREASED
--- NOTE | 2016-09-29 16:06 | RADRPT ---
PROCEDURE: Ultrasound guidance for placement of needle in left upper extremity vein. CLINICAL INDICATION: Venous access. TECHNIQUE: Limited sonography of the left upper extremity was performed. Ultrasound images were recorded and s tored in the patient's medical record. COMPARISON: None. FINDINGS: The ultrasound images demonstrate a patent left upper extremity vein. The PICC line was inserted by the PICC line nurse. IMPRESSION: 1. Ultrasound guidance for a needle placement in a left upper extremity vein. 2. The left upper extremity vein is patent. RPTAT: QQ .Yoan George MD, MD Date Time Electronically viewed and signed by .Yoan George MD, MD on 09/29/2016 16:06 .R/
--- NOTE | 2016-09-29 17:04 | RADRPT ---
PROCEDURE: XR Chest. CLINICAL INDICATION: Check PICC line position. TECHNIQUE: Single frontal view. COMPARISON: 09/08/2016. FINDINGS: There is a left arm PICC line with the tip in the right atrium. The tracheostomy tube remains in sa tisfactory position. There is a tunneled right internal jugular vein dialysis catheter with the tip in satisfactory position in the right atrium. Pulmonary edema is unchanged. There are low lung vo lumes. The heart is enlarged. There are small bilateral pleural effusions. There is no pneumothorax. IMPRESSION: 1. Satisfactory position of left arm PICC line. 2. Dialysis catheter in satisfactory position. 3. Tracheostomy tube unchanged. 4. Unchanged pulmonary edema and low lung volumes. 5. Cardiomegaly and small bilateral pleural effusions. RPTAT: QQ .Yoan George MD, MD Date Time Electronically viewed and signed by .Yoan George MD, MD on 09/29/2016 17:04 .R/
[2016-09-29] MEDS: DEXTROSE 50% 50 ML SYRINGE IV PRN ×2 (17:46→18:18)
[2016-09-30] VITALS (22 sets, daily range): BP systolic 107–134; BP diastolic 54–85; PULSE 103–116; RESP 14–20
[2016-09-30] MEDS: LEVALBUTEROL (HFA) 15 GM INHALER INH SCH ×4 (01:33→19:30)
[2016-09-30] MEDS: IPRATROPIUM (HFA) 12.9 GM INHALER INH SCH ×4 (01:33→19:30)
[2016-09-30] MEDS: SODIUM CHLORIDE 23.4% 77 MEQ in DEXTROSE 10% 1,000 ML IV SCH ×2 (01:48→22:12)
[2016-09-30] MEDS: LANSOPRAZOLE 30 MG CAP GTB SCH ×2 (05:38→17:17)
[2016-09-30] MEDS: GLYCOPYRROLATE 1 MG TAB GTB SCH ×3 (05:38→21:02)
[2016-09-30] MEDS: INSULIN ASPART [NOVOLOG] 3 ML PEN SC SCH ×4 (05:46→17:16)
[2016-09-30 06:07] LABS: ADD SCAN DIFF NO
[2016-09-30 06:25] LABS: ABNORMAL IP MESSAGE 1; HEMATOCRIT 24.3 % (42.0-52.0); HEMOGLOBIN 7.8 g/dl (14.0-18.0); MEAN CORPUSCULAR HEMOGLOBIN 30.2 pg (29.0-33.0); MEAN CORPUSCULAR HGB CONC 32.1 g/dl (32.0-37.0); MEAN CORPUSCULAR VOLUME 94.2 fl (82.0-101.0); MEAN PLATELET VOLUME 10.4 fl (7.4-10.4); PLATELET COUNT 53 10^3/UL (140-415); RED BLOOD COUNT 2.58 10^6/ul (4.70-6.10); RED CELL DISTRIBUTION WIDTH 16.4 % (11.5-14.5); WHITE BLOOD COUNT 7.4 10^3/ul (4.8-10.8)
[2016-09-30 06:42] LABS: POTASSIUM 3.7 mmol/L (3.5-5.1)
[2016-09-30 06:45] LABS: CREATININE 2.53 mg/dl (0.61-1.24)
[2016-09-30 06:46] LABS: CALCIUM 7.9 mg/dl (8.4-10.2)
[2016-09-30] MEDS: SUCRALFATE (100 MG/ML) 10ML CUP GTB SCH ×2 (09:15→21:01)
[2016-09-30] MEDS: LEVETIRACETAM (100 MG/ML) 5ML CUP GTB SCH ×2 (09:15→21:01)
[2016-09-30] MEDS: SEVELAMER CARBONATE 2.4 GM PKT GTB SCH ×3 (09:15→17:17)
[2016-09-30] MEDS: CHLORHEXIDINE GLUCONATE 15 ML UD CUP MM SCH ×2 (09:16→21:01)
[2016-09-30] MEDS: ALLOPURINOL 100 MG TAB GTB SCH (09:16)
[2016-09-30] MEDS: ASCORBIC ACID 500 MG TAB GTB SCH ×2 (09:16→21:02)
[2016-09-30] MEDS: CALCITRIOL 0.25 MCG CAP GTB SCH (09:16)
[2016-09-30] MEDS: COLLAGENASE 30 GM TUBE TOP SCH (09:16)
[2016-09-30] MEDS: FAMOTIDINE 20 MG TAB GTB SCH (09:16)
[2016-09-30 09:53] LABS: LYMPHOCYTES # 0.3 10^3/ul (0.8-2.9); MONOCYTE # 0.1 10^3/ul (0.3-0.9); NEUTROPHIL # 5.6 10^3/ul (1.6-7.5)
[2016-09-30 09:54] LABS: PLATELET ESTIMATE PLT APPEAR DECREASED
--- NOTE | 2016-09-30 11:52 | CONS ---
Date/Time of Note Date/Time of Note DATE: 09/30/16 TIME: 11:50 Assessment/Plan Assessment/Plan Additional Assessment/Plan 1. Acute kidney injury on possible chronic kidney disease unknown stage secondary to severe prerenal azotemia causing ischemic acute tubular necrosis in the setting of severe anemia.- continue to have Anuria with uremic symptoms and GI bleeding- started on HD during this admission 2. Severe anemia,s/p PRBC 3. Chronic respiratory failure, status post tracheostomy, on vent. 4. Pancytopenia. 5. History of a seizure disorder. 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, HIV, negative Case management for outpatient HD placement we will continue HD three times a week Total Time spent in Patient follow up assessment, Updating patient/Family and Communicating with Nursing staff is >45 minutes Consultation Date/Type/Reason Admit Date/Time Sep 06, 2016 at 22:27 Initial Consult Date Aug Type of Consultation: NEPHROLOGY Reason for Consultation Acute Kidney injury progressed to ESRD with uremic encephalopathy with Bleedign complications Referring Provider: FREDDY COELLO MD 24 HR Interval Summary Free Text/Dictation plan for HD tomorrow, now S/p permacath, awatiing placement, had a episode of hypoglycemia Exam/Review of Systems Vital Signs Vitals Vital Signs Date Time Temp Pulse Resp B/P Pulse Ox O2 Delivery O2 Flow Rate FiO2 09/30/16 11:21 111 14 99 40 09/30/16 11:15 98.9 121/62 09/28/16 13:00 Mechanical Ventilator Intake and Output 09/29/16 09/29/16 09/30/16 15:00 23:00 07:00 Intake Total 1081.6 ml 780 ml Output Total 50 ml 100 ml Balance 1031.6 ml 680 ml Exam GENERAL: chronically ill-appearing, middle-aged man who is lying comfortably in bed. HEENT: Head atraumatic, normocephalic. Sclerae anicteric. Buccal mucosa dry. NECK: Supple. Tracheostomy present. CHEST: Rise symmetrical. Breath sounds diminished. HEART: S1, S2. ABDOMEN: Soft, bowel tones present. EXTREMITIES: Without cyanosis. Contractured. + permacath Right IJ Results Result Diagram: 09/30/16 0538 09/30/16 0534 Results 24 hrs Laboratory Tests Test 09/29/16 11:56 09/29/16 12:09 09/29/16 13:40 09/29/16 17:28 Anion Gap 11 Blood Urea Nitrogen 66 H Calcium Level 8.0 L Carbon Dioxide Level 24 Chloride Level 98 Creatinine 2.47 H Glucose Level 62 L Potassium Level 3.2 L Sodium Level 130 L Bedside Glucose 74 59 L Band Neutrophils % 10.0 H Basophils # Basophils % Eosinophils # Eosinophils % Hematocrit 26.5 L Hemoglobin 8.8 L Lymphocytes # 0.1 L Lymphocytes % 2.0 L Macrocytosis 1+ Mean Corpuscular Hemoglobin 31.3 Mean Corpuscular Hemoglobin Concent 33.2 Mean Corpuscular Volume 94.3 Mean Platelet Volume Monocytes # 0.4 Monocytes % 5.0 Neutrophils # 5.8 Neutrophils % 83.0 H Nucleated Red Blood Cells # Nucleated Red Blood Cells % Platelet Count 24 #*L Platelet Estimate PLT APPEAR DECREASED Red Blood Count 2.81 L Red Cell Distribution Width 16.6 H White Blood Count 7.0 # Test 09/29/16 17:29 09/29/16 18:17 09/29/16 18:38 09/29/16 18:54 Bedside Glucose 57 L 77 100 91 Test 09/29/16 23:59 09/30/16 05:34 09/30/16 05:38 09/30/16 05:45 Bedside Glucose 82 72 Anion Gap 13 Blood Urea Nitrogen 72 H Calcium Level 7.9 L Carbon Dioxide Level 26 Chloride Level 95 L Creatinine 2.53 H Glucose Level 66 L Potassium Level 3.7 Sodium Level 130 L Band Neutrophils % 19.0 H Eosinophils # Eosinophils % Hematocrit 24.3 L Hemoglobin 7.8 L Lymphocytes # 0.3 L Lymphocytes % 4.0 L Mean Corpuscular Hemoglobin 30.2 Mean Corpuscular Hemoglobin Concent 32.1 Mean Corpuscular Volume 94.2 Mean Platelet Volume 10.4 Monocytes # 0.1 L Monocytes % 2.0 Neutrophils # 5.6 Neutrophils % 75.0 Platelet Count 53 #L Platelet Estimate PLT APPEAR DECREASED Red Blood Count 2.58 L Red Cell Distribution Width 16.4 H White Blood Count 7.4 Test 09/30/16 08:18 Bedside Glucose 82 Medications Medications Current Medications Acetaminophen (Tylenol Liquid) 640 mg Q6H PRN GTB PAIN OR TEMP ABOVE 38C; Start 09/06/16 at 22:30 Allopurinol (Zyloprim) 200 mg DAILY GTB Last administered on 09/30/16 09:16; Admin Dose 200 MG; Start 09/07/16 at 09:00 Ascorbic Acid (Vitamin C) 500 mg BID GTB Last administered on 09/30/16 09:16; Admin Dose 500 MG; Start 09/07/16 at 09:00 Calcitriol (Rocaltrol) 0.25 mcg DAILY GTB Last administered on 09/30/16 09:16; Admin Dose 0.25 MCG; Start 09/07/16 at 09:00 Chlorhexidine Gluconate (Peridex) 15 ml BID MM Last administered on 09/30/16 09 :16; Admin Dose 15 ML; Start 09/07/16 at 09:00 Famotidine (Pepcid) 40 mg DAILY GTB Last administered on 09/30/16 09:16; Admin Dose 40 MG; Start 09/07/16 at 09:00 Lansoprazole (Prevacid) 30 mg BID@18 GTB Last administered on 09/30/16 05:38 ; Admin Dose 30 MG; Start 09/07/16 at 06:00 Levetiracetam (Keppra Liquid) 500 mg BID GTB Last administered on 09/30/16 09: 15; Admin Dose 500 MG; Start 09/07/16 at 09:00 Metoclopramide HCl (Reglan) 5 mg Q8H PRN GTB NAUSEA AND/OR VOMITING; Start 09/06 at 22:30 Sucralfate (Carafate Susp) 1 gm BID GTB Last administered on 09/30/16 09:15; Admin Dose 1 GM; Start 09/07/16 at 09:00 Ondansetron HCl (Zofran Inj) 4 mg Q6H PRN IV NAUSEA AND/OR VOMITING Last administered on 09/17/16 00:52; Admin Dose 4 MG; Start 09/06/16 at 22:30 Morphine Sulfate (morphine) 2 mg Q4H PRN IV PAIN LEVEL 7-10 Last administered on 09/16/16 20:19; Admin Dose 2 MG; Start 09/06/16 at 22:30 Metoclopramide HCl (Reglan) 5 mg Q6H PRN IV RESIDUALS > 100; Start 09/10/16 at 19:00 Clonidine (Catapres) 0.1 mg Q6H PRN GTB ELEVATED SYSTOLIC BP Last administered on 09/15/16 07:04; Admin Dose 0.1 MG; Start 09/13/16 at 23:00 Hydralazine HCl (Apresoline) 10 mg Q6H PRN IV ELEVATED SYSTOLIC BP Last administered on 09/15/16 02:08; Admin Dose 10 MG; Start 09/15/16 at 01:50 Collagenase (Santyl) 1 applic DAILY TOP Last administered on 09/30/16 09:16; Admin Dose 1 APPLIC; Start 09/18/16 at 09:00 Glycopyrrolate (Robinul) 1 mg Q8 GTB Last administered on 09/30/16 05:38; Admin Dose 1 MG; Start 09/19/16 at 09:30 Amikacin Sulfate AMIKACIN PER PHARMACY NOTE XX ; Start 09/24/16 at 14:00 Sodium Chloride/ Dextrose (Nacl/D10w) 1,019.25 ml @ 50 mls/hr [id number] IV ; Start 09/28/16 at 09:00 Miscellaneous Information 1 ea NOTE XX ; Start 09/28/16 at 09:00 Glucose (Glutose) 15 gm Q15M PRN PO DECREASED GLUCOSE; Start 09/28/16 at 09:00 Glucose (Glutose) 22.5 gm Q15M PRN PO DECREASED GLUCOSE; Start 09/28/16 at 09:00 Dextrose (D50w Syringe) 25 ml Q15M PRN IV DECREASED GLUCOSE Last administered on 09/29/16 18:18; Admin Dose 25 ML; Start 09/28/16 at 09:00 Dextrose (D50w Syringe) 50 ml Q15M PRN IV DECREASED GLUCOSE; Start 09/28/16 at 09:00 Glucagon (Glucagen) 1 mg Q15M PRN IM DECREASED GLUCOSE; Start 09/28/16 at 09:00 Glucose (Glutose) 15 gm Q15M PRN BUCCAL DECREASED GLUCOSE; Start 09/28/16 at 09: 00 Insulin Aspart (Novolog Insulin Pen) NOVOLOG *MILD* ALGORI... Q6 SC ; Start 09/29 at 00:00 IV Flush (NS 10 ml) 10 ml PRN PRN IV FLUSH LINE; Start 09/29/16 at 20:30 KENIA TURCIOS MD Sep 30, 2016 11:52
--- NOTE | 2016-09-30 12:04 | PN ---
Date/Time of Note Date/Time of Note DATE: 09/30/16 TIME: 12:03 Assessment/Plan VTE Prophylaxis VTE Prophylaxis Intervention: other Lines/Catheters IV Catheter Type ([facility] PICC Line Central line still needed: Yes Urinary Cath still in place: Yes Reason Cath still needed: skin wounds contaminated by urine Assessment/Plan Chief Complaint/Hosp Course 1. Severe anemia 2 GI bleed. Continue to monitor hemoglobin and hematocrit. Dr. Singh is following in gastroenterology consultation. 2. Hypovolemic shock, resolving. continue IV fluids. 3. Acute kidney failure on chronic kidney disease. continue to monitor BUN and creatinine. Dr. Mk Purdy is following in nephrology consultation. Patient with worsening renal function. Hemodialysis will be started upon hemodialysis catheter placement. 4. Pancytopenia. 5. Ventilator-dependent respiratory failure. 6. Possible healthcare-acquired pneumonia. Dr. Aragon is following in pulmonology consultation. Continue ventilator support, bronchodilators. The patient will continue broad spectrum antibiotics for possible pneumonia. 7. Dysphagia with PEG. 8. History of seizure disorder. Continue patient on Keppra. 9. Diastolic dysfunction congestive heart failure with preserved ejection fraction of 60%. 10. Possible sepsis. Dr. Guy is following patient in infectious disease consultation. 11. Status post cerebrovascular accident, status post craniotomy. 12. Mental retardation. Problems: Subjective 24 Hr Interval Summary Free Text/Dictation Patient sedated and ventilated via trach Exam/Review of Systems Vital Signs Vitals Vital Signs Date Time Temp Pulse Resp B/P Pulse Ox O2 Delivery O2 Flow Rate FiO2 09/30/16 11:21 111 14 99 40 09/30/16 11:15 98.9 121/62 09/28/16 13:00 Mechanical Ventilator Intake and Output 09/29/16 09/29/16 09/30/16 15:00 23:00 07:00 Intake Total 1081.6 ml 780 ml Output Total 50 ml 100 ml Balance 1031.6 ml 680 ml Exam Constitutional: well developed Head: atraumatic, normocephalic Neck: supple Respiratory: diminished breath sounds Cardiovascular: regular rate and rhythm Gastrointestinal: non-tender, soft Results Result Diagram: 09/30/16 0538 09/30/16 0534 Results 24 hrs Laboratory Tests Test 09/29/16 12:09 09/29/16 13:40 09/29/16 17:28 09/29/16 17:29 Bedside Glucose 74 59 L 57 L Band Neutrophils % 10.0 H Basophils # Basophils % Eosinophils # Eosinophils % Hematocrit 26.5 L Hemoglobin 8.8 L Lymphocytes # 0.1 L Lymphocytes % 2.0 L Macrocytosis 1+ Mean Corpuscular Hemoglobin 31.3 Mean Corpuscular Hemoglobin Concent 33.2 Mean Corpuscular Volume 94.3 Mean Platelet Volume Monocytes # 0.4 Monocytes % 5.0 Neutrophils # 5.8 Neutrophils % 83.0 H Nucleated Red Blood Cells # Nucleated Red Blood Cells % Platelet Count 24 #*L Platelet Estimate PLT APPEAR DECREASED Red Blood Count 2.81 L Red Cell Distribution Width 16.6 H White Blood Count 7.0 # Test 09/29/16 18:17 09/29/16 18:38 09/29/16 18:54 09/29/16 23:59 Bedside Glucose 77 100 91 82 Test 09/30/16 05:34 09/30/16 05:38 09/30/16 05:45 09/30/16 08:18 Anion Gap 13 Blood Urea Nitrogen 72 H Calcium Level 7.9 L Carbon Dioxide Level 26 Chloride Level 95 L Creatinine 2.53 H Glucose Level 66 L Potassium Level 3.7 Sodium Level 130 L Band Neutrophils % 19.0 H Eosinophils # Eosinophils % Hematocrit 24.3 L Hemoglobin 7.8 L Lymphocytes # 0.3 L Lymphocytes % 4.0 L Mean Corpuscular Hemoglobin 30.2 Mean Corpuscular Hemoglobin Concent 32.1 Mean Corpuscular Volume 94.2 Mean Platelet Volume 10.4 Monocytes # 0.1 L Monocytes % 2.0 Neutrophils # 5.6 Neutrophils % 75.0 Platelet Count 53 #L Platelet Estimate PLT APPEAR DECREASED Red Blood Count 2.58 L Red Cell Distribution Width 16.4 H White Blood Count 7.4 Bedside Glucose 72 82 Medications Medications Current Medications Acetaminophen (Tylenol Liquid) 640 mg Q6H PRN GTB PAIN OR TEMP ABOVE 38C; Start 09/06/16 at 22:30 Allopurinol (Zyloprim) 200 mg DAILY GTB Last administered on 09/30/16 09:16; Admin Dose 200 MG; Start 09/07/16 at 09:00 Ascorbic Acid (Vitamin C) 500 mg BID GTB Last administered on 09/30/16 09:16; Admin Dose 500 MG; Start 09/07/16 at 09:00 Calcitriol (Rocaltrol) 0.25 mcg DAILY GTB Last administered on 09/30/16 09:16; Admin Dose 0.25 MCG; Start 09/07/16 at 09:00 Chlorhexidine Gluconate (Peridex) 15 ml BID MM Last administered on 09/30/16 09 :16; Admin Dose 15 ML; Start 09/07/16 at 09:00 Famotidine (Pepcid) 40 mg DAILY GTB Last administered on 09/30/16 09:16; Admin Dose 40 MG; Start 09/07/16 at 09:00 Lansoprazole (Prevacid) 30 mg BID@ GTB Last administered on 09/30/16 05:38 ; Admin Dose 30 MG; Start 09/07/16 at 06:00 Levetiracetam (Keppra Liquid) 500 mg BID GTB Last administered on 09/30/16 09: 15; Admin Dose 500 MG; Start 09/07/16 at 09:00 Metoclopramide HCl (Reglan) 5 mg Q8H PRN GTB NAUSEA AND/OR VOMITING; Start 09/06 at 22:30 Sucralfate (Carafate Susp) 1 gm BID GTB Last administered on 09/30/16 09:15; Admin Dose 1 GM; Start 09/07/16 at 09:00 Ondansetron HCl (Zofran Inj) 4 mg Q6H PRN IV NAUSEA AND/OR VOMITING Last administered on 09/17/16 00:52; Admin Dose 4 MG; Start 09/06/16 at 22:30 Morphine Sulfate (morphine) 2 mg Q4H PRN IV PAIN LEVEL 7-10 Last administered on 09/16/16 20:19; Admin Dose 2 MG; Start 09/06/16 at 22:30 Metoclopramide HCl (Reglan) 5 mg Q6H PRN IV RESIDUALS > 100; Start 09/10/16 at 19:00 Clonidine (Catapres) 0.1 mg Q6H PRN GTB ELEVATED SYSTOLIC BP Last administered on 09/15/16 07:04; Admin Dose 0.1 MG; Start 09/13/16 at 23:00 Hydralazine HCl (Apresoline) 10 mg Q6H PRN IV ELEVATED SYSTOLIC BP Last administered on 09/15/16 02:08; Admin Dose 10 MG; Start 09/15/16 at 01:50 Collagenase (Santyl) 1 applic DAILY TOP Last administered on 09/30/16 09:16; Admin Dose 1 APPLIC; Start 09/18/16 at 09:00 Glycopyrrolate (Robinul) 1 mg Q8 GTB Last administered on 09/30/16 05:38; Admin Dose 1 MG; Start 09/19/16 at 09:30 Amikacin Sulfate AMIKACIN PER PHARMACY NOTE XX ; Start 09/24/16 at 14:00 Sodium Chloride/ Dextrose (Nacl/D10w) 1,019.25 ml @ 50 mls/hr [id number] IV ; Start 09/28/16 at 09:00 Miscellaneous Information 1 ea NOTE XX ; Start 09/28/16 at 09:00 Glucose (Glutose) 15 gm Q15M PRN PO DECREASED GLUCOSE; Start 09/28/16 at 09:00 Glucose (Glutose) 22.5 gm Q15M PRN PO DECREASED GLUCOSE; Start 09/28/16 at 09:00 Dextrose (D50w Syringe) 25 ml Q15M PRN IV DECREASED GLUCOSE Last administered on 09/29/16 18:18; Admin Dose 25 ML; Start 09/28/16 at 09:00 Dextrose (D50w Syringe) 50 ml Q15M PRN IV DECREASED GLUCOSE; Start 09/28/16 at 09:00 Glucagon (Glucagen) 1 mg Q15M PRN IM DECREASED GLUCOSE; Start 09/28/16 at 09:00 Glucose (Glutose) 15 gm Q15M PRN BUCCAL DECREASED GLUCOSE; Start 09/28/16 at 09: 00 Insulin Aspart (Novolog Insulin Pen) NOVOLOG *MILD* ALGORI... Q6 SC ; Start 09/29 at 00:00 IV Flush (NS 10 ml) 10 ml PRN PRN IV FLUSH LINE; Start 09/29/16 at 20:30 TAI PERRIN Sep 30, 2016 12:04
--- NOTE | 2016-09-30 15:03 | CONS ---
Date/Time of Note Date/Time of Note DATE: 09/30/16 TIME: 15:02 Assessment/Plan Assessment/Plan Chief Complaint/Hosp Course SUBJECTIVE: No acute changes, afebrile, nad INDWELLINGS: RSC permacath, trach, PEG, LUE PICC 09/29/16. Abx: Amikacin PHYSICAL EXAMINATION: GENERAL: This is a well-developed, fragile, chronically ill-appearing, middle- aged man who is lying comfortably in bed. HEENT: Head atraumatic, normocephalic. Sclerae anicteric. Buccal mucosa dry. NECK: Supple. Tracheostomy present. CHEST: Rise symmetrical. Breath sounds diminished. HEART: S1, S2. ABDOMEN: Soft, bowel tones present. EXTREMITIES: Without cyanosis. Contractured. ASSESSMENT: 1. Status post septic shock. 2. Multiple decubitus with wound culture growing multi-drug resistant organisms ==> on Amikacin. 3. Acute on chronic kidney disease, hemodialysis dependent. 4. Encephalopathy. 5. Seizure disorder. 6. ALLERGIC TO ZITHROMAX, ZOSYN, AND ERYTHROMYCIN. PLAN: Clinically unchanged. Continue abx, local wound care, santos cx prn DW staff Problems: Consultation Date/Type/Reason Admit Date/Time Sep 06, 2016 at 22:27 Initial Consult Date 09/07/16 Type of Consultation: ID Referring Provider: FREDDY COELLO MD Exam/Review of Systems Vital Signs Vitals Vital Signs Date Time Temp Pulse Resp B/P Pulse Ox O2 Delivery O2 Flow Rate FiO2 09/30/16 13:38 112 17 100 40 09/30/16 11:15 98.9 121/62 09/28/16 13:00 Mechanical Ventilator Intake and Output 09/29/16 09/29/16 09/30/16 15:00 23:00 07:00 Intake Total 1081.6 ml 780 ml Output Total 50 ml 100 ml Balance 1031.6 ml 680 ml Results Result Diagram: 09/30/16 0538 09/30/16 0534 Results 24 hrs Laboratory Tests Test 09/29/16 17:28 09/29/16 17:29 09/29/16 18:17 09/29/16 18:38 Bedside Glucose 59 L 57 L 77 100 Test 09/29/16 18:54 09/29/16 23:59 09/30/16 05:34 09/30/16 05:38 Bedside Glucose 91 82 Anion Gap 13 Blood Urea Nitrogen 72 H Calcium Level 7.9 L Carbon Dioxide Level 26 Chloride Level 95 L Creatinine 2.53 H Glucose Level 66 L Potassium Level 3.7 Sodium Level 130 L Band Neutrophils % 19.0 H Eosinophils # Eosinophils % Hematocrit 24.3 L Hemoglobin 7.8 L Lymphocytes # 0.3 L Lymphocytes % 4.0 L Mean Corpuscular Hemoglobin 30.2 Mean Corpuscular Hemoglobin Concent 32.1 Mean Corpuscular Volume 94.2 Mean Platelet Volume 10.4 Monocytes # 0.1 L Monocytes % 2.0 Neutrophils # 5.6 Neutrophils % 75.0 Platelet Count 53 #L Platelet Estimate PLT APPEAR DECREASED Red Blood Count 2.58 L Red Cell Distribution Width 16.4 H White Blood Count 7.4 Test 09/30/16 05:45 09/30/16 08:18 09/30/16 12:15 Bedside Glucose 72 82 96 Medications Medications Current Medications Acetaminophen (Tylenol Liquid) 640 mg Q6H PRN GTB PAIN OR TEMP ABOVE 38C; Start 09/06/16 at 22:30 Allopurinol (Zyloprim) 200 mg DAILY GTB Last administered on 09/30/16 09:16; Admin Dose 200 MG; Start 09/07/16 at 09:00 Ascorbic Acid (Vitamin C) 500 mg BID GTB Last administered on 09/30/16 09:16; Admin Dose 500 MG; Start 09/07/16 at 09:00 Calcitriol (Rocaltrol) 0.25 mcg DAILY GTB Last administered on 09/30/16 09:16; Admin Dose 0.25 MCG; Start 09/07/16 at 09:00 Chlorhexidine Gluconate (Peridex) 15 ml BID MM Last administered on 09/30/16 09 :16; Admin Dose 15 ML; Start 09/07/16 at 09:00 Famotidine (Pepcid) 40 mg DAILY GTB Last administered on 09/30/16 09:16; Admin Dose 40 MG; Start 09/07/16 at 09:00 Lansoprazole (Prevacid) 30 mg BID@18 GTB Last administered on 09/30/16 05:38 ; Admin Dose 30 MG; Start 09/07/16 at 06:00 Levetiracetam (Keppra Liquid) 500 mg BID GTB Last administered on 09/30/16 09: 15; Admin Dose 500 MG; Start 09/07/16 at 09:00 Metoclopramide HCl (Reglan) 5 mg Q8H PRN GTB NAUSEA AND/OR VOMITING; Start 09/06 at 22:30 Sucralfate (Carafate Susp) 1 gm BID GTB Last administered on 09/30/16 09:15; Admin Dose 1 GM; Start 09/07/16 at 09:00 Ondansetron HCl (Zofran Inj) 4 mg Q6H PRN IV NAUSEA AND/OR VOMITING Last administered on 09/17/16 00:52; Admin Dose 4 MG; Start 09/06/16 at 22:30 Morphine Sulfate (morphine) 2 mg Q4H PRN IV PAIN LEVEL 7-10 Last administered on 09/16/16 20:19; Admin Dose 2 MG; Start 09/06/16 at 22:30 Metoclopramide HCl (Reglan) 5 mg Q6H PRN IV RESIDUALS > 100; Start 09/10/16 at 19:00 Clonidine (Catapres) 0.1 mg Q6H PRN GTB ELEVATED SYSTOLIC BP Last administered on 09/15/16 07:04; Admin Dose 0.1 MG; Start 09/13/16 at 23:00 Hydralazine HCl (Apresoline) 10 mg Q6H PRN IV ELEVATED SYSTOLIC BP Last administered on 09/15/16 02:08; Admin Dose 10 MG; Start 09/15/16 at 01:50 Collagenase (Santyl) 1 applic DAILY TOP Last administered on 09/30/16 09:16; Admin Dose 1 APPLIC; Start 09/18/16 at 09:00 Glycopyrrolate (Robinul) 1 mg Q8 GTB Last administered on 09/30/16 05:38; Admin Dose 1 MG; Start 09/19/16 at 09:30 Amikacin Sulfate AMIKACIN PER PHARMACY NOTE XX ; Start 09/24/16 at 14:00 Sodium Chloride/ Dextrose (Nacl/D10w) 1,019.25 ml @ 50 mls/hr [id number] IV ; Start 09/28/16 at 09:00 Miscellaneous Information 1 ea NOTE XX ; Start 09/28/16 at 09:00 Glucose (Glutose) 15 gm Q15M PRN PO DECREASED GLUCOSE; Start 09/28/16 at 09:00 Glucose (Glutose) 22.5 gm Q15M PRN PO DECREASED GLUCOSE; Start 09/28/16 at 09:00 Dextrose (D50w Syringe) 25 ml Q15M PRN IV DECREASED GLUCOSE Last administered on 09/29/16t 18:18; Admin Dose 25 ML; Start 09/28/16 at 09:00 Dextrose (D50w Syringe) 50 ml Q15M PRN IV DECREASED GLUCOSE; Start 09/28/16 at 09:00 Glucagon (Glucagen) 1 mg Q15M PRN IM DECREASED GLUCOSE; Start 09/28/16 at 09:00 Glucose (Glutose) 15 gm Q15M PRN BUCCAL DECREASED GLUCOSE; Start 09/28/16 at 09: 00 Insulin Aspart (Novolog Insulin Pen) NOVOLOG *MILD* ALGORI... Q6 SC ; Start 09/29 at 00:00 IV Flush (NS 10 ml) 10 ml PRN PRN IV FLUSH LINE; Start 09/29/16 at 20:30 ARUN DIANA NP Sep 30, 2016 15:03
--- NOTE | 2016-09-30 16:05 | PN ---
DATE: 09/30/2016 SUBJECTIVE: The patient is breathing comfortably with ventilator support. His mental status is nelson e. He is poorly responsive except for minimal eye opening. OBJECTIVE: VITAL SIGNS: Stable. Temperature is 98.9, blood pressure 121/62, pulse rate is 112, respirations 1 4, pulse oximetry shows 99% saturation on 40% inhaled oxygen concentration. NECK: Tracheal secretions are clear. No bleeding is seen. HEART: Regular rhythm. CHEST: Breath sounds are diminished in both the lower lung [place] with a few intermittent rales and rhonchi. ABDOMEN: Soft, not distended, tolerating gastrostomy tube feedings. Bowel sounds are present. EXTREMITIES: Show generalized edema. LABORATORY DATA: Today shows WBC 7400, hemoglobin 7.8, hematocrit 24.3, platelets are decreased to 53,000. The chemistry panel shows sodium 130, potassium 3.7, bicarbonate of 26, BUN 72, creatinine 2.53, glucose 66. IMPRESSION: 1. Chronic respiratory failure, ventilator dependent. 2. Acute renal failure on dialysis. 3. Chronic anemia. 4. History of seizure disorder. 5. Chronic encephalopathy. 6. History of developmental delay. 7. Pancytopenia. PLAN: 1. Continue long-term ventilator support. 2. Continue dialysis as per internal sales. 3. Transfuse the patient to coordinate with dialysis as per the internal sales. Dictated By: VEENA STREETER MD, SR/NIKOLAI Conf#: [id number] DID#: [id number]
[2016-10-01] VITALS (27 sets, daily range): BP systolic 68–100; BP diastolic 38–59; PULSE 98–116; RESP 14–24
[2016-10-01] MEDS: IPRATROPIUM (HFA) 12.9 GM INHALER INH SCH ×4 (01:48→20:56)
[2016-10-01] MEDS: LEVALBUTEROL (HFA) 15 GM INHALER INH SCH ×4 (01:48→20:55)
[2016-10-01] MEDS: INSULIN ASPART [NOVOLOG] 3 ML PEN SC SCH ×4 (06:00→18:18)
[2016-10-01] MEDS: GLYCOPYRROLATE 1 MG TAB GTB SCH ×3 (06:37→21:00)
[2016-10-01] MEDS: LANSOPRAZOLE 30 MG CAP GTB SCH ×2 (06:37→18:02)
[2016-10-01] MEDS: FAMOTIDINE 20 MG TAB GTB SCH (09:10)
[2016-10-01] MEDS: CALCITRIOL 0.25 MCG CAP GTB SCH (09:10)
[2016-10-01] MEDS: SEVELAMER CARBONATE 2.4 GM PKT GTB SCH ×3 (09:10→18:02)
[2016-10-01] MEDS: ASCORBIC ACID 500 MG TAB GTB SCH ×2 (09:10→21:00)
[2016-10-01] MEDS: LEVETIRACETAM (100 MG/ML) 5ML CUP GTB SCH ×2 (09:10→21:00)
[2016-10-01] MEDS: CHLORHEXIDINE GLUCONATE 15 ML UD CUP MM SCH ×2 (09:10→21:00)
[2016-10-01] MEDS: SUCRALFATE (100 MG/ML) 10ML CUP GTB SCH ×2 (09:10→21:00)
[2016-10-01] MEDS: COLLAGENASE 30 GM TUBE TOP SCH (09:10)
[2016-10-01] MEDS: ALLOPURINOL 100 MG TAB GTB SCH (09:10)
--- NOTE | 2016-10-01 11:21 | CONS ---
Date/Time of Note Date/Time of Note DATE: 10/01/16 TIME: 11:19 Assessment/Plan Assessment/Plan Additional Assessment/Plan 1. Acute kidney injury on possible chronic kidney disease unknown stage secondary to severe prerenal azotemia causing ischemic acute tubular necrosis in the setting of severe anemia.- continue to have Anuria with uremic symptoms and GI bleeding- started on HD during this admission 2. Severe anemia,s/p PRBC 3. Chronic respiratory failure, status post tracheostomy, on vent. 4. Pancytopenia. 5. History of a seizure disorder. PLAN: permacath in place, plan for HD today Us showed kidneys are small in size and increased echogenicity c/w chronic medical renal disease- pt likely to be group home HD placement, Hepatitis panel, HIV, negative Case management for outpatient HD placement we will continue HD three times a week SNF placement Total Time spent in Patient follow up assessment, Updating patient/Family and Communicating with Nursing staff is >45 minutes Consultation Date/Type/Reason Admit Date/Time Sep 06, 2016 at 22:27 Initial Consult Date Aug Type of Consultation: NEPHROLOGY Referring Provider: FREDDY COELLO MD 24 HR Interval Summary Free Text/Dictation s/p Permacath, plan for HD today Exam/Review of Systems Vital Signs Vitals Vital Signs Date Time Temp Pulse Resp B/P Pulse Ox O2 Delivery O2 Flow Rate FiO2 10/01/16 11:13 98.4 78 18 100/55 98 10/01/16 09:18 40 09/28/16 13:00 Mechanical Ventilator Intake and Output 09/30/16 09/30/16 10/01/16 15:00 23:00 07:00 Intake Total 680 ml 680 ml Output Total 30 ml Balance 680 ml 650 ml Results Result Diagram: 09/30/16 0538 09/30/16 0534 Results 24 hrs Laboratory Tests Test 09/30/16 12:15 09/30/16 17:15 10/01/16 01:36 10/01/16 06:00 Bedside Glucose 96 88 87 162 Medications Medications Current Medications Acetaminophen (Tylenol Liquid) 640 mg Q6H PRN GTB PAIN OR TEMP ABOVE 38C; Start 09/06/16 at 22:30 Allopurinol (Zyloprim) 200 mg DAILY GTB Last administered on 10/01/16t 09:10; Admin Dose 200 MG; Start 09/07/16 at 09:00 Ascorbic Acid (Vitamin C) 500 mg BID GTB Last administered on 10/01/16 09:10; Admin Dose 500 MG; Start 09/07/16 at 09:00 Calcitriol (Rocaltrol) 0.25 mcg DAILY GTB Last administered on 10/01/16 09:10; Admin Dose 0.25 MCG; Start 09/07/16 at 09:00 Chlorhexidine Gluconate (Peridex) 15 ml BID MM Last administered on 10/01/16 09 :10; Admin Dose 15 ML; Start 09/07/16 at 09:00 Famotidine (Pepcid) 40 mg DAILY GTB Last administered on 10/01/16 09:10; Admin Dose 40 MG; Start 09/07/16 at 09:00 Lansoprazole (Prevacid) 30 mg BID@ GTB Last administered on 10/01/16 06:37 ; Admin Dose 30 MG; Start 09/07/16 at 06:00 Levetiracetam (Keppra Liquid) 500 mg BID GTB Last administered on 10/01/16 09: 10; Admin Dose 500 MG; Start 09/07/16 at 09:00 Metoclopramide HCl (Reglan) 5 mg Q8H PRN GTB NAUSEA AND/OR VOMITING; Start 09/06 at 22:30 Sucralfate (Carafate Susp) 1 gm BID GTB Last administered on 10/01/16 09:10; Admin Dose 1 GM; Start 09/07/16 at 09:00 Ondansetron HCl (Zofran Inj) 4 mg Q6H PRN IV NAUSEA AND/OR VOMITING Last administered on 09/17/16 00:52; Admin Dose 4 MG; Start 09/06/16 at 22:30 Morphine Sulfate (morphine) 2 mg Q4H PRN IV PAIN LEVEL 7-10 Last administered on 09/16/16 20:19; Admin Dose 2 MG; Start 09/06/16 at 22:30 Metoclopramide HCl (Reglan) 5 mg Q6H PRN IV RESIDUALS > 100; Start 09/10/16 at 19:00 Clonidine (Catapres) 0.1 mg Q6H PRN GTB ELEVATED SYSTOLIC BP Last administered on 09/15/16 07:04; Admin Dose 0.1 MG; Start 09/13/16 at 23:00 Hydralazine HCl (Apresoline) 10 mg Q6H PRN IV ELEVATED SYSTOLIC BP Last administered on 09/15/16 02:08; Admin Dose 10 MG; Start 09/15/16 at 01:50 Collagenase (Santyl) 1 applic DAILY TOP Last administered on 10/01/16 09:10; Admin Dose 1 APPLIC; Start 09/18/16 at 09:00 Glycopyrrolate (Robinul) 1 mg Q8 GTB Last administered on 10/01/16 06:37; Admin Dose 1 MG; Start 09/19/16 at 09:30 Amikacin Sulfate AMIKACIN PER PHARMACY NOTE XX ; Start 09/24/16 at 14:00 Sodium Chloride/ Dextrose (Nacl/D10w) 1,019.25 ml @ 50 mls/hr [id number] IV Last administered on 09/30/16 22:12; Admin Dose 50 MLS/HR; Start 09/28/16 at 09:00 Miscellaneous Information 1 ea NOTE XX ; Start 09/28/16 at 09:00 Glucose (Glutose) 15 gm Q15M PRN PO DECREASED GLUCOSE; Start 09/28/16 at 09:00 Glucose (Glutose) 22.5 gm Q15M PRN PO DECREASED GLUCOSE; Start 09/28/16 at 09:00 Dextrose (D50w Syringe) 25 ml Q15M PRN IV DECREASED GLUCOSE Last administered on 09/29/16 18:18; Admin Dose 25 ML; Start 09/28/16 at 09:00 Dextrose (D50w Syringe) 50 ml Q15M PRN IV DECREASED GLUCOSE; Start 09/28/16 at 09:00 Glucagon (Glucagen) 1 mg Q15M PRN IM DECREASED GLUCOSE; Start 09/28/16 at 09:00 Glucose (Glutose) 15 gm Q15M PRN BUCCAL DECREASED GLUCOSE; Start 09/28/16 at 09: 00 Insulin Aspart (Novolog Insulin Pen) NOVOLOG *MILD* ALGORI... Q6 SC ; Start 09/29 at 00:00 IV Flush (NS 10 ml) 10 ml PRN PRN IV FLUSH LINE; Start 09/29/16 at 20:30 KENIA TURCIOS MD Oct 01, 2016 11:21
--- NOTE | 2016-10-01 11:38 | PN ---
DATE: 10/01/2016 SUBJECTIVE: The patient's general condition is same. He is fully responsive, except for minimal eye opening inconsistently. He is on continuous ventilator support. His breathing appears unlabored. PHYSICAL EXAMINATION: VITAL SIGNS: Stable. Temperature 98.4, blood pressure 99/59, pulse rate is 105, respirations 17, p ulse oximetry 98% saturation with 40% inhaled oxygen concentration. NECK: Tracheal secretions are clear. No bleeding is seen. HEART: Regular rhythm with sinus tachycardia. CHEST: Breath sounds are heard bilaterally, diminished in both the lower lung [place], otherwise lay ar. ABDOMEN: Soft, tolerating gastrostomy tube feedings. Bowel sounds are present. EXTREMITIES: Show generalized edema. LABORATORY DATA: There are no lab results available today except for glucose which is 162. IMPRESSION: 1. Chronic respiratory failure, ventilator dependent. 2. Acute renal failure on dialysis. 3. Chronic anemia. 4. History of seizure disorder. 5. Chronic encephalopathy. 6. History of developmental delay. 7. Pancytopenia. PLAN: 1. Patient will be continued on long-term ventilator support. 2. Dialysis scheduled for today. He will also probably get blood transfusion during hemodialysis. 3. Discharge planning is being done to have him transferred back to the long-term care facility. Dictated By: VEENA STREETER MD SR/NIKOLAI Conf#: [id number] DID#: [id number]
--- NOTE | 2016-10-01 11:56 | CONS ---
Date/Time of Note Date/Time of Note DATE: 10/01/16 TIME: 11:56 Assessment/Plan Assessment/Plan Chief Complaint/Hosp Course SUBJECTIVE: No acute changes. Noncommunicative, nad INDWELLINGS: RSC permacath, trach, PEG, LUE PICC 09/29/16. Abx: Amikacin PHYSICAL EXAMINATION: GENERAL: This is a well-developed, fragile, chronically ill-appearing, middle- aged man who is lying comfortably in bed. HEENT: Head atraumatic, normocephalic. Sclerae anicteric. Buccal mucosa dry. NECK: Supple. Tracheostomy present. CHEST: Rise symmetrical. Breath sounds diminished. HEART: S1, S2. ABDOMEN: Soft, bowel tones present. EXTREMITIES: Without cyanosis. Contractured. ASSESSMENT: 1. Status post septic shock. 2. Multiple decubitus with wound culture growing multi-drug resistant organisms ==> on Amikacin. 3. Acute on chronic kidney disease, hemodialysis dependent. 4. Encephalopathy. 5. Seizure disorder. 6. ALLERGIC TO ZITHROMAX, ZOSYN, AND ERYTHROMYCIN. PLAN: Clinically unchanged. Continue abx for 7 more days, local wound care, santos cx prn [facility] staff Problems: Consultation Date/Type/Reason Admit Date/Time Sep 06, 2016 at 22:27 Initial Consult Date 09/07/16 Type of Consultation: ID Referring Provider: FREDDY COELLO MD Exam/Review of Systems Vital Signs Vitals Vital Signs Date Time Temp Pulse Resp B/P Pulse Ox O2 Delivery O2 Flow Rate FiO2 10/01/16 11:13 98.4 78 18 100/55 98 10/01/16 09:18 40 09/28/16 13:00 Mechanical Ventilator Intake and Output 09/30/16 09/30/16 10/01/16 15:00 23:00 07:00 Intake Total 680 ml 680 ml Output Total 30 ml Balance 680 ml 650 ml Results Result Diagram: 09/30/16 0538 09/30/16 0534 Results 24 hrs Laboratory Tests Test 09/30/16 12:15 09/30/16 17:15 10/01/16 01:36 10/01/16 06:00 Bedside Glucose 96 88 87 162 Medications Medications Current Medications Acetaminophen (Tylenol Liquid) 640 mg Q6H PRN GTB PAIN OR TEMP ABOVE 38C; Start 09/06/16 at 22:30 Allopurinol (Zyloprim) 200 mg DAILY GTB Last administered on 10/01/16 09:10; Admin Dose 200 MG; Start 09/07/16 at 09:00 Ascorbic Acid (Vitamin C) 500 mg BID GTB Last administered on 10/01/16 09:10; Admin Dose 500 MG; Start 09/07/16 at 09:00 Calcitriol (Rocaltrol) 0.25 mcg DAILY GTB Last administered on 10/01/16 09:10; Admin Dose 0.25 MCG; Start 09/07/16 at 09:00 Chlorhexidine Gluconate (Peridex) 15 ml BID MM Last administered on 10/01/16 09 :10; Admin Dose 15 ML; Start 09/07/16 at 09:00 Famotidine (Pepcid) 40 mg DAILY GTB Last administered on 10/01/16 09:10; Admin Dose 40 MG; Start 09/07/16 at 09:00 Lansoprazole (Prevacid) 30 mg BID@18 GTB Last administered on 10/01/16 06:37 ; Admin Dose 30 MG; Start 09/07/16 at 06:00 Levetiracetam (Keppra Liquid) 500 mg BID GTB Last administered on 10/01/16 09: 10; Admin Dose 500 MG; Start 09/07/16 at 09:00 Metoclopramide HCl (Reglan) 5 mg Q8H PRN GTB NAUSEA AND/OR VOMITING; Start 09/06 at 22:30 Sucralfate (Carafate Susp) 1 gm BID GTB Last administered on 10/01/16 09:10; Admin Dose 1 GM; Start 09/07/16 at 09:00 Ondansetron HCl (Zofran Inj) 4 mg Q6H PRN IV NAUSEA AND/OR VOMITING Last administered on 09/17/16 00:52; Admin Dose 4 MG; Start 09/06/16 at 22:30 Morphine Sulfate (morphine) 2 mg Q4H PRN IV PAIN LEVEL 7-10 Last administered on 09/16/16 20:19; Admin Dose 2 MG; Start 09/06/16 at 22:30 Metoclopramide HCl (Reglan) 5 mg Q6H PRN IV RESIDUALS > 100; Start 09/10/16 at 19:00 Clonidine (Catapres) 0.1 mg Q6H PRN GTB ELEVATED SYSTOLIC BP Last administered on 09/15/16 07:04; Admin Dose 0.1 MG; Start 09/13/16 at 23:00 Hydralazine HCl (Apresoline) 10 mg Q6H PRN IV ELEVATED SYSTOLIC BP Last administered on 09/15/16 02:08; Admin Dose 10 MG; Start 09/15/16 at 01:50 Collagenase (Santyl) 1 applic DAILY TOP Last administered on 10/01/16 09:10; Admin Dose 1 APPLIC; Start 09/18/16 at 09:00 Glycopyrrolate (Robinul) 1 mg Q8 GTB Last administered on 10/01/16 06:37; Admin Dose 1 MG; Start 09/19/16 at 09:30 Amikacin Sulfate AMIKACIN PER PHARMACY NOTE XX ; Start 09/24/16 at 14:00 Sodium Chloride/ Dextrose (Nacl/D10w) 1,019.25 ml @ 50 mls/hr [id number] IV Last administered on 09/30/16 22:12; Admin Dose 50 MLS/HR; Start 09/28/16 at 09:00 Miscellaneous Information 1 ea NOTE XX ; Start 09/28/16 at 09:00 Glucose (Glutose) 15 gm Q15M PRN PO DECREASED GLUCOSE; Start 09/28/16 at 09:00 Glucose (Glutose) 22.5 gm Q15M PRN PO DECREASED GLUCOSE; Start 09/28/16 at 09:00 Dextrose (D50w Syringe) 25 ml Q15M PRN IV DECREASED GLUCOSE Last administered on 09/29/16 18:18; Admin Dose 25 ML; Start 09/28/16 at 09:00 Dextrose (D50w Syringe) 50 ml Q15M PRN IV DECREASED GLUCOSE; Start 09/28/16 at 09:00 Glucagon (Glucagen) 1 mg Q15M PRN IM DECREASED GLUCOSE; Start 09/28/16 at 09:00 Glucose (Glutose) 15 gm Q15M PRN BUCCAL DECREASED GLUCOSE; Start 09/28/16 at 09: 00 Insulin Aspart (Novolog Insulin Pen) NOVOLOG *MILD* ALGORI... Q6 SC ; Start 09/29 at 00:00 IV Flush (NS 10 ml) 10 ml PRN PRN IV FLUSH LINE; Start 09/29/16 at 20:30 ARUN DIANA NP Oct 01, 2016 11:56
[2016-10-01] MEDS: SODIUM CHLORIDE 23.4% 77 MEQ in DEXTROSE 10% 1,000 ML IV SCH (13:16)
[2016-10-01 14:54] LABS: ADD SCAN DIFF NO
[2016-10-01 14:56] LABS: ABNORMAL IP MESSAGE 1; HEMATOCRIT 23.1 % (42.0-52.0); HEMOGLOBIN 7.6 g/dl (14.0-18.0); MEAN CORPUSCULAR HGB CONC 32.9 g/dl (32.0-37.0); MEAN CORPUSCULAR VOLUME 94.3 fl (82.0-101.0); MEAN PLATELET VOLUME 10.3 fl (7.4-10.4); PLATELET COUNT 46 10^3/UL (140-415); RED BLOOD COUNT 2.45 10^6/ul (4.70-6.10); RED CELL DISTRIBUTION WIDTH 16.8 % (11.5-14.5)
[2016-10-01 15:08] LABS: POTASSIUM 3.6 mmol/L (3.5-5.1)
[2016-10-01 15:10] LABS: CREATININE 2.73 mg/dl (0.61-1.24)
[2016-10-01 15:11] LABS: CALCIUM 8.1 mg/dl (8.4-10.2)
[2016-10-01 15:55] LABS: ANISOCYTOSIS 1+; HYPOCHROMASIA 1+; LYMPHOCYTES # 0.2 10^3/ul (0.8-2.9); NEUTROPHIL # 6.2 10^3/ul (1.6-7.5); PLATELET ESTIMATE PLT APPEAR DECREASED
[2016-10-01] MEDS: EPOETIN 3000 UNITS/1 ML INJ (ESRD) SC SCH (18:02)
--- NOTE | 2016-10-01 18:21 | PN ---
Date/Time of Note Date/Time of Note DATE: 10/01/16 TIME: 18:21 Assessment/Plan VTE Prophylaxis VTE Prophylaxis Intervention: SCD's Lines/Catheters IV [facility]ter Type (from [facility]): PICC Line Urinary Cath still in place: Yes Assessment/Plan Chief Complaint/Hosp Course ASSESSMENT AND PLAN: 1. Severe anemia 2 GI bleed. Continue to monitor hemoglobin and hematocrit. Dr. Singh is following in gastroenterology consultation. 2. Hypovolemic shock, resolved. 3. Acute kidney failure on chronic kidney disease. Continue to monitor BUN and creatinine. Dr. Mk Purdy is following in nephrology consultation. Patient with worsening renal function. Started on Hemodialysis during this admission. 4. Pancytopenia. 5. Ventilator-dependent respiratory failure. 6. Possible healthcare-acquired pneumonia. Dr. Aragon is following in pulmonology consultation. Continue ventilator support, bronchodilators. Status post treatment. 7. Dysphagia with PEG. 8. History of seizure disorder. Continue patient on Keppra. 9. Diastolic dysfunction congestive heart failure with preserved ejection fraction of 60%. 10. S/p sepsis. Dr. Guy is following patient in infectious disease consultation. 11. Status post cerebrovascular accident, status post craniotomy. 12. Mental retardation. Continue Protonix for peptic ulcer disease prophylaxis. Further recommendations based on clinical course. Plan of care discussed with Dr. Mcelroy. Problems: Subjective 24 Hr Interval Summary Free Text/Dictation Pt is undergoing HD, Hgb is 7.6, will transfuse 2 Units of PRBC. Hyponatremia, stop water flushes via GT. Exam/Review of Systems Vital Signs Vitals Vital Signs Date Time Temp Pulse Resp B/P Pulse Ox O2 Delivery O2 Flow Rate FiO2 10/01/16 18:00 116 17 10/01/16 13:57 98 40 10/01/16 11:13 98.4 100/55 09/28/16 13:00 Mechanical Ventilator Intake and Output 09/30/16 09/30/16 10/01/16 15:00 23:00 07:00 Intake Total 680 ml 680 ml Output Total 30 ml Balance 680 ml 650 ml Exam Constitutional: alert, well developed Head: atraumatic, normocephalic Eyes: nl conjunctiva ENMT: nl external ears & nose Neck: jvd, supple Respiratory: clear to auscultation Cardiovascular: regular rate and rhythm Gastrointestinal: nl liver, spleen, soft Genitourinary - Male: nl penis, other ( Brar catheter ) Musculoskeletal: nl extremities to inspection, Extremities: normal pulses, bilateral LE s/p vascular intervention Results Result Diagram: 10/01/16 1445 10/01/16 1445 Results 24 hrs Laboratory Tests Test 10/01/16 01:36 10/01/16 06:00 10/01/16 12:26 10/01/16 14:45 Bedside Glucose 87 162 147 Anion Gap 12 Anisocytosis 1+ Band Neutrophils % 8.0 H Blood Urea Nitrogen 75 H Calcium Level 8.1 L Carbon Dioxide Level 26 Chloride Level 92 L Creatinine 2.73 H Eosinophils # Eosinophils % Glucose Level 117 # Hematocrit 23.1 L Hemoglobin 7.6 L Hypochromasia 1+ Lymphocytes # 0.2 L Lymphocytes % 3.0 L Mean Corpuscular Hemoglobin 31.0 Mean Corpuscular Hemoglobin Concent 32.9 Mean Corpuscular Volume 94.3 Mean Platelet Volume 10.3 Neutrophils # 6.2 Neutrophils % 89.0 H Platelet Count 46 L Platelet Estimate PLT APPEAR DECREASED Potassium Level 3.6 Red Blood Count 2.45 L Red Cell Distribution Width 16.8 H Sodium Level 126 L White Blood Count 7.0 Medications Medications Current Medications Acetaminophen (Tylenol Liquid) 640 mg Q6H PRN GTB PAIN OR TEMP ABOVE 38C; Start 09/06/16 at 22:30 Allopurinol (Zyloprim) 200 mg DAILY GTB Last administered on 10/01/16 09:10; Admin Dose 200 MG; Start 09/07/16 at 09:00 Ascorbic Acid (Vitamin C) 500 mg BID GTB Last administered on 10/01/16 09:10; Admin Dose 500 MG; Start 09/07/16 at 09:00 Calcitriol (Rocaltrol) 0.25 mcg DAILY GTB Last administered on 10/01/16 09:10; Admin Dose 0.25 MCG; Start 09/07/16 at 09:00 Chlorhexidine Gluconate (Peridex) 15 ml BID MM Last administered on 10/01/16 09 :10; Admin Dose 15 ML; Start 09/07/16 at 09:00 Famotidine (Pepcid) 40 mg DAILY GTB Last administered on 10/01/16 09:10; Admin Dose 40 MG; Start 09/07/16 at 09:00 Lansoprazole (Prevacid) 30 mg BID@18 GTB Last administered on 10/01/16 18:02 ; Admin Dose 30 MG; Start 09/07/16 at 06:00 Levetiracetam (Keppra Liquid) 500 mg BID GTB Last administered on 10/01/16 09: 10; Admin Dose 500 MG; Start 09/07/16 at 09:00 Metoclopramide HCl (Reglan) 5 mg Q8H PRN GTB NAUSEA AND/OR VOMITING; Start 09/06 at 22:30 Sucralfate (Carafate Susp) 1 gm BID GTB Last administered on 10/01/16 09:10; Admin Dose 1 GM; Start 09/07/16 at 09:00 Ondansetron HCl (Zofran Inj) 4 mg Q6H PRN IV NAUSEA AND/OR VOMITING Last administered on 09/17/16 00:52; Admin Dose 4 MG; Start 09/06/16 at 22:30 Morphine Sulfate (morphine) 2 mg Q4H PRN IV PAIN LEVEL 7-10 Last administered on 09/16/16 20:19; Admin Dose 2 MG; Start 09/06/16 at 22:30 Metoclopramide HCl (Reglan) 5 mg Q6H PRN IV RESIDUALS > 100; Start 09/10/16 at 19:00 Clonidine (Catapres) 0.1 mg Q6H PRN GTB ELEVATED SYSTOLIC BP Last administered on 09/15/16 07:04; Admin Dose 0.1 MG; Start 09/13/16 at 23:00 Hydralazine HCl (Apresoline) 10 mg Q6H PRN IV ELEVATED SYSTOLIC BP Last administered on 09/15/16 02:08; Admin Dose 10 MG; Start 09/15/16 at 01:50 Collagenase (Santyl) 1 applic DAILY TOP Last administered on 10/01/16 09:10; Admin Dose 1 APPLIC; Start 09/18/16 at 09:00 Glycopyrrolate (Robinul) 1 mg Q8 GTB Last administered on 10/01/16 13:00; Admin Dose 1 MG; Start 09/19/16 at 09:30 Amikacin Sulfate AMIKACIN PER PHARMACY NOTE XX ; Start 09/24/16 at 14:00 Sodium Chloride/ Dextrose (Nacl/D10w) 1,019.25 ml @ 50 mls/hr [id number] IV Last administered on 10/01/16 13:16; Admin Dose 50 MLS/HR; Start 09/28/16 at 09:00 Miscellaneous Information 1 ea NOTE XX ; Start 09/28/16 at 09:00 Glucose (Glutose) 15 gm Q15M PRN PO DECREASED GLUCOSE; Start 09/28/16 at 09:00 Glucose (Glutose) 22.5 gm Q15M PRN PO DECREASED GLUCOSE; Start 09/28/16 at 09:00 Dextrose (D50w Syringe) 25 ml Q15M PRN IV DECREASED GLUCOSE Last administered on 09/29/16 18:18; Admin Dose 25 ML; Start 09/28/16 at 09:00 Dextrose (D50w Syringe) 50 ml Q15M PRN IV DECREASED GLUCOSE; Start 09/28/16 at 09:00 Glucagon (Glucagen) 1 mg Q15M PRN IM DECREASED GLUCOSE; Start 09/28/16 at 09:00 Glucose (Glutose) 15 gm Q15M PRN BUCCAL DECREASED GLUCOSE; Start 09/28/16 at 09: 00 Insulin Aspart (Novolog Insulin Pen) NOVOLOG *MILD* ALGORI... Q6 SC Last administered on 10/01/16 18:18; Admin Dose 1 UNIT; Start 09/29/16 at 00:00 IV Flush (NS 10 ml) 10 ml PRN PRN IV FLUSH LINE; Start 09/29/16 at 20:30 Epoetin Jeffry (Epogen (Esrd)) 6,000 units MoWeFr@17 SC Last administered on 18:02; Admin Dose 6,000 UNITS; Start 10/01/16 at 17:00 QUIN ORTIZ Oct 01, 2016 18:21
[2016-10-01] MEDS: AMIKACIN 400 MG in SOD CHLORIDE 0.9% 100 ML IVPB SCH (18:58)
[2016-10-02] VITALS (22 sets, daily range): BP systolic 91–116; BP diastolic 53–79; PULSE 104–110; RESP 14–26
[2016-10-02] MEDS: INSULIN ASPART [NOVOLOG] 3 ML PEN SC SCH ×4 (00:34→17:47)
[2016-10-02] MEDS: IPRATROPIUM (HFA) 12.9 GM INHALER INH SCH ×4 (02:01→19:38)
[2016-10-02] MEDS: LEVALBUTEROL (HFA) 15 GM INHALER INH SCH ×4 (02:01→19:38)
[2016-10-02] MEDS: GLYCOPYRROLATE 1 MG TAB GTB SCH ×3 (06:22→21:09)
[2016-10-02] MEDS: LANSOPRAZOLE 30 MG CAP GTB SCH ×2 (06:22→17:41)
[2016-10-02 08:04] LABS: ADD SCAN DIFF NO
[2016-10-02 08:11] LABS: ABNORMAL IP MESSAGE 1; BASOPHILS % 0.5 % (0.0-2.0); EOSINOPHILS % 0.3 % (0.0-7.0); HEMATOCRIT 27.8 % (42.0-52.0); HEMOGLOBIN 9.2 g/dl (14.0-18.0); LYMPHOCYTES # 0.1 10^3/ul (0.8-2.9); LYMPHOCYTES % 1.4 % (15.0-51.0); MEAN CORPUSCULAR HEMOGLOBIN 30.5 pg (29.0-33.0); MEAN CORPUSCULAR HGB CONC 33.1 g/dl (32.0-37.0); MEAN CORPUSCULAR VOLUME 92.1 fl (82.0-101.0); MEAN PLATELET VOLUME 10.8 fl (7.4-10.4); MONOCYTE # 0.1 10^3/ul (0.3-0.9); MONOCYTES % 1.5 % (0.0-11.0); NEUTROPHIL # 6.3 10^3/ul (1.6-7.5); PLATELET COUNT 34 10^3/UL (140-415); RED BLOOD COUNT 3.02 10^6/ul (4.70-6.10); RED CELL DISTRIBUTION WIDTH 17.8 % (11.5-14.5); WHITE BLOOD COUNT 6.6 10^3/ul (4.8-10.8)
[2016-10-02 08:13] LABS: NEUTROPHILS % 95.7 % (39.0-77.0)
[2016-10-02 08:30] LABS: POTASSIUM 3.1 mmol/L (3.5-5.1)
[2016-10-02 08:32] LABS: CREATININE 1.73 mg/dl (0.61-1.24)
[2016-10-02 08:33] LABS: CALCIUM 8.4 mg/dl (8.4-10.2)
[2016-10-02] MEDS: ASCORBIC ACID 500 MG TAB GTB SCH ×2 (09:08→21:09)
[2016-10-02] MEDS: CHLORHEXIDINE GLUCONATE 15 ML UD CUP MM SCH ×2 (09:08→21:09)
[2016-10-02] MEDS: LEVETIRACETAM (100 MG/ML) 5ML CUP GTB SCH ×2 (09:08→21:09)
[2016-10-02] MEDS: SEVELAMER CARBONATE 2.4 GM PKT GTB SCH ×3 (09:08→17:41)
[2016-10-02] MEDS: FAMOTIDINE 20 MG TAB GTB SCH (09:08)
[2016-10-02] MEDS: ALLOPURINOL 100 MG TAB GTB SCH (09:08)
[2016-10-02] MEDS: CALCITRIOL 0.25 MCG CAP GTB SCH (09:08)
[2016-10-02] MEDS: SUCRALFATE (100 MG/ML) 10ML CUP GTB SCH ×2 (09:08→21:09)
--- NOTE | 2016-10-02 11:03 | CONS ---
Date/Time of Note Date/Time of Note DATE: 10/02/16 TIME: 11:02 Assessment/Plan Assessment/Plan Additional Assessment/Plan 1. Acute kidney injury on possible chronic kidney disease unknown stage secondary to severe prerenal azotemia causing ischemic acute tubular necrosis in the setting of severe anemia.- continue to have Anuria with uremic symptoms and GI bleeding- started on HD during this admission 2. Severe anemia,s/p PRBC 3. Chronic respiratory failure, status post tracheostomy, on vent. 4. Pancytopenia. 5. History of a seizure disorder. 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 HD placement, Hepatitis panel, HIV, negative Case management for outpatient HD placement we will continue HD three times a week SNF placement Total Time spent in Patient follow up assessment, Updating patient/Family and Communicating with Nursing staff is >45 minutes Consultation Date/Type/Reason Admit Date/Time Sep 06, 2016 at 22:27 Initial Consult Date Aug Type of Consultation: NEPHROLOGY Referring Provider: FREDDY COELLO MD 24 HR Interval Summary Free Text/Dictation no acute events, S/p HD yesterday Exam/Review of Systems Vital Signs Vitals Vital Signs Date Time Temp Pulse Resp B/P Pulse Ox O2 Delivery O2 Flow Rate FiO2 10/02/16 09:20 105 18 98 40 10/02/16 07:12 98.3 98/55 09/28/16 13:00 Mechanical Ventilator Intake and Output 10/01/16 10/01/16 10/02/16 15:00 23:00 07:00 Intake Total 680 ml Output Total 50 ml Balance 630 ml Exam GENERAL: chronically ill-appearing, middle-aged man who is lying comfortably in bed. HEENT: Head atraumatic, normocephalic. Sclerae anicteric. Buccal mucosa dry. NECK: Supple. Tracheostomy present. CHEST: Rise symmetrical. Breath sounds diminished. HEART: S1, S2. ABDOMEN: Soft, bowel tones present. EXTREMITIES: Without cyanosis. Contractured. + permacath Right IJ Results Result Diagram: 10/02/16 0650 10/02/16 0650 Results 24 hrs Laboratory Tests Test 10/01/16 12:26 10/01/16 14:45 10/01/16 18:03 10/02/16 00:23 Bedside Glucose 147 174 154 Anion Gap 12 Anisocytosis 1+ Band Neutrophils % 8.0 H Blood Urea Nitrogen 75 H Calcium Level 8.1 L Carbon Dioxide Level 26 Chloride Level 92 L Creatinine 2.73 H Eosinophils # Eosinophils % Glucose Level 117 # Hematocrit 23.1 L Hemoglobin 7.6 L Hypochromasia 1+ Lymphocytes # 0.2 L Lymphocytes % 3.0 L Mean Corpuscular Hemoglobin 31.0 Mean Corpuscular Hemoglobin Concent 32.9 Mean Corpuscular Volume 94.3 Mean Platelet Volume 10.3 Neutrophils # 6.2 Neutrophils % 89.0 H Platelet Count 46 L Platelet Estimate PLT APPEAR DECREASED Potassium Level 3.6 Red Blood Count 2.45 L Red Cell Distribution Width 16.8 H Sodium Level 126 L White Blood Count 7.0 Test 10/02/16 06:18 10/02/16 06:50 Bedside Glucose 135 Anion Gap 11 Basophils # 0.0 Basophils % 0.5 Blood Urea Nitrogen 52 H Calcium Level 8.4 Carbon Dioxide Level 27 Chloride Level 100 Creatinine 1.73 #H Eosinophils # 0.0 Eosinophils % 0.3 Glucose Level 101 Hematocrit 27.8 #L Hemoglobin 9.2 #L Lymphocytes # 0.1 L Lymphocytes % 1.4 L Mean Corpuscular Hemoglobin 30.5 Mean Corpuscular Hemoglobin Concent 33.1 Mean Corpuscular Volume 92.1 Mean Platelet Volume 10.8 H Monocytes # 0.1 L Monocytes % 1.5 Neutrophils # 6.3 Neutrophils % 95.7 H Nucleated Red Blood Cells # 0.0 Nucleated Red Blood Cells % 0.0 Platelet Count 34 #L Potassium Level 3.1 L Red Blood Count 3.02 #L Red Cell Distribution Width 17.8 H Sodium Level 135 White Blood Count 6.6 Medications Medications Current Medications Acetaminophen (Tylenol Liquid) 640 mg Q6H PRN GTB PAIN OR TEMP ABOVE 38C; Start 09/06/16 at 22:30 Allopurinol (Zyloprim) 200 mg DAILY GTB Last administered on 10/02/16 09:08; Admin Dose 200 MG; Start 09/07/16 at 09:00 Ascorbic Acid (Vitamin C) 500 mg BID GTB Last administered on 10/02/16 09:08; Admin Dose 500 MG; Start 09/07/16 at 09:00 Calcitriol (Rocaltrol) 0.25 mcg DAILY GTB Last administered on 10/02/16 09:08; Admin Dose 0.25 MCG; Start 09/07/16 at 09:00 Chlorhexidine Gluconate (Peridex) 15 ml BID MM Last administered on 10/02/16 09 :08; Admin Dose 15 ML; Start 09/07/16 at 09:00 Famotidine (Pepcid) 40 mg DAILY GTB Last administered on 10/02/16 09:08; Admin Dose 40 MG; Start 09/07/16 at 09:00 Lansoprazole (Prevacid) 30 mg BID@18 GTB Last administered on 10/02/16 06:22 ; Admin Dose 30 MG; Start 09/07/16 at 06:00 Levetiracetam (Keppra Liquid) 500 mg BID GTB Last administered on 10/02/16 09: 08; Admin Dose 500 MG; Start 09/07/16 at 09:00 Metoclopramide HCl (Reglan) 5 mg Q8H PRN GTB NAUSEA AND/OR VOMITING; Start 09/06 at 22:30 Sucralfate (Carafate Susp) 1 gm BID GTB Last administered on 10/02/16 09:08; Admin Dose 1 GM; Start 09/07/16 at 09:00 Ondansetron HCl (Zofran Inj) 4 mg Q6H PRN IV NAUSEA AND/OR VOMITING Last administered on 09/17/16 00:52; Admin Dose 4 MG; Start 09/06/16 at 22:30 Morphine Sulfate (morphine) 2 mg Q4H PRN IV PAIN LEVEL 7-10 Last administered on 09/16/16 20:19; Admin Dose 2 MG; Start 09/06/16 at 22:30 Metoclopramide HCl (Reglan) 5 mg Q6H PRN IV RESIDUALS > 100; Start 09/10/16 at 19:00 Clonidine (Catapres) 0.1 mg Q6H PRN GTB ELEVATED SYSTOLIC BP Last administered on 09/15/16 07:04; Admin Dose 0.1 MG; Start 09/13/16 at 23:00 Hydralazine HCl (Apresoline) 10 mg Q6H PRN IV ELEVATED SYSTOLIC BP Last administered on 09/15/16 02:08; Admin Dose 10 MG; Start 09/15/16 at 01:50 Collagenase (Santyl) 1 applic DAILY TOP Last administered on 10/01/16 09:10; Admin Dose 1 APPLIC; Start 09/18/16 at 09:00 Glycopyrrolate (Robinul) 1 mg Q8 GTB Last administered on 10/02/16 06:22; Admin Dose 1 MG; Start 09/19/16 at 09:30 Amikacin Sulfate AMIKACIN PER PHARMACY NOTE XX ; Start 09/24/16 at 14:00 Sodium Chloride/ Dextrose (Nacl/D10w) 1,019.25 ml @ 50 mls/hr [id number] IV Last administered on 10/01/16 13:16; Admin Dose 50 MLS/HR; Start 09/28/16 at 09:00 Miscellaneous Information 1 ea NOTE XX ; Start 09/28/16 at 09:00 Glucose (Glutose) 15 gm Q15M PRN PO DECREASED GLUCOSE; Start 09/28/16 at 09:00 Glucose (Glutose) 22.5 gm Q15M PRN PO DECREASED GLUCOSE; Start 09/28/16 at 09:00 Dextrose (D50w Syringe) 25 ml Q15M PRN IV DECREASED GLUCOSE Last administered on 09/29/16 18:18; Admin Dose 25 ML; Start 09/28/16 at 09:00 Dextrose (D50w Syringe) 50 ml Q15M PRN IV DECREASED GLUCOSE; Start 09/28/16 at 09:00 Glucagon (Glucagen) 1 mg Q15M PRN IM DECREASED GLUCOSE; Start 09/28/16 at 09:00 Glucose (Glutose) 15 gm Q15M PRN BUCCAL DECREASED GLUCOSE; Start 09/28/16 at 09: 00 Insulin Aspart (Novolog Insulin Pen) NOVOLOG *MILD* ALGORI... Q6 SC Last administered on 10/02/16 00:34; Admin Dose 1 UNIT; Start 09/29/16 at 00:00 IV Flush (NS 10 ml) 10 ml PRN PRN IV FLUSH LINE; Start 09/29/16 at 20:30 Epoetin Jeffry (Epogen (Esrd)) 6,000 units MoWeFr@17 SC Last administered on 18:02; Admin Dose 6,000 UNITS; Start 10/01/16 at 17:00 KENIA TURCIOS MD Oct 02, 2016 11:02
[2016-10-02] MEDS: SODIUM CHLORIDE 23.4% 77 MEQ in DEXTROSE 10% 1,000 ML IV SCH (12:28)
--- NOTE | 2016-10-02 12:47 | CONS ---
Date/Time of Note Date/Time of Note DATE: 10/02/16 TIME: 12:44 Assessment/Plan Assessment/Plan Chief Complaint/Hosp Course SUBJECTIVE: No acute changes. Noncommunicative, no fevers, looks comfortable INDWELLINGS: RSC permacath, trach, PEG, LUE PICC 09/29/16. Abx: Amikacin PHYSICAL EXAMINATION: GENERAL: This is a well-developed, fragile, chronically ill-appearing, middle- aged man who is lying comfortably in bed. HEENT: Head atraumatic, normocephalic. Sclerae anicteric. Buccal mucosa dry. NECK: Supple. Tracheostomy present. CHEST: Rise symmetrical. Breath sounds diminished. HEART: S1, S2. ABDOMEN: Soft, bowel tones present. EXTREMITIES: Without cyanosis. Contractured. ASSESSMENT: 1. Status post septic shock. 2. Multiple decubitus with wound culture growing multi-drug resistant organisms ==> on Amikacin. 3. Acute on chronic kidney disease, hemodialysis dependent. 4. Encephalopathy. 5. Seizure disorder. 6. ALLERGIC TO ZITHROMAX, ZOSYN, AND ERYTHROMYCIN. PLAN: Clinically unchanged. Continue abx for 6 more days, local wound care, [facility] pr[facility] staff Problems: Consultation Date/Type/Reason Admit Date/Time Sep 06, 2016 at 22:27 Initial Consult Date 09/07/16 Type of Consultation: id Referring Provider: FREDDY COELLO MD Exam/Review of Systems Vital Signs Vitals Vital Signs Date Time Temp Pulse Resp B/P Pulse Ox O2 Delivery O2 Flow Rate FiO2 10/02/16 12:26 104 10/02/16 11:20 14 96 40 10/02/16 11:14 98.6 100/58 09/28/16 13:00 Mechanical Ventilator Intake and Output 10/01/16 10/01/16 10/02/16 15:00 23:00 07:00 Intake Total 680 ml Output Total 50 ml Balance 630 ml Results Result Diagram: 10/02/16 0650 10/02/16 0650 Results 24 hrs Laboratory Tests Test 10/01/16 14:45 10/01/16 18:03 10/02/16 00:23 10/02/16 06:18 Anion Gap 12 Anisocytosis 1+ Band Neutrophils % 8.0 H Blood Urea Nitrogen 75 H Calcium Level 8.1 L Carbon Dioxide Level 26 Chloride Level 92 L Creatinine 2.73 H Eosinophils # Eosinophils % Glucose Level 117 # Hematocrit 23.1 L Hemoglobin 7.6 L Hypochromasia 1+ Lymphocytes # 0.2 L Lymphocytes % 3.0 L Mean Corpuscular Hemoglobin 31.0 Mean Corpuscular Hemoglobin Concent 32.9 Mean Corpuscular Volume 94.3 Mean Platelet Volume 10.3 Neutrophils # 6.2 Neutrophils % 89.0 H Platelet Count 46 L Platelet Estimate PLT APPEAR DECREASED Potassium Level 3.6 Red Blood Count 2.45 L Red Cell Distribution Width 16.8 H Sodium Level 126 L White Blood Count 7.0 Bedside Glucose 174 154 135 Test 10/02/16 06:50 10/02/16 12:26 Anion Gap 11 Basophils # 0.0 Basophils % 0.5 Blood Urea Nitrogen 52 H Calcium Level 8.4 Carbon Dioxide Level 27 Chloride Level 100 Creatinine 1.73 #H Eosinophils # 0.0 Eosinophils % 0.3 Glucose Level 101 Hematocrit 27.8 #L Hemoglobin 9.2 #L Lymphocytes # 0.1 L Lymphocytes % 1.4 L Mean Corpuscular Hemoglobin 30.5 Mean Corpuscular Hemoglobin Concent 33.1 Mean Corpuscular Volume 92.1 Mean Platelet Volume 10.8 H Monocytes # 0.1 L Monocytes % 1.5 Neutrophils # 6.3 Neutrophils % 95.7 H Nucleated Red Blood Cells # 0.0 Nucleated Red Blood Cells % 0.0 Platelet Count 34 #L Potassium Level 3.1 L Red Blood Count 3.02 #L Red Cell Distribution Width 17.8 H Sodium Level 135 White Blood Count 6.6 Bedside Glucose 116 Medications Medications Current Medications Acetaminophen (Tylenol Liquid) 640 mg Q6H PRN GTB PAIN OR TEMP ABOVE 38C; Start 09/06/16 at 22:30 Allopurinol (Zyloprim) 200 mg DAILY GTB Last administered on 10/02/16 09:08; Admin Dose 200 MG; Start 09/07/16 at 09:00 Ascorbic Acid (Vitamin C) 500 mg BID GTB Last administered on 10/02/16 09:08; Admin Dose 500 MG; Start 09/07/16 at 09:00 Calcitriol (Rocaltrol) 0.25 mcg DAILY GTB Last administered on 10/02/16 09:08; Admin Dose 0.25 MCG; Start 09/07/16 at 09:00 Chlorhexidine Gluconate (Peridex) 15 ml BID MM Last administered on 10/02/16 09 :08; Admin Dose 15 ML; Start 09/07/16 at 09:00 Famotidine (Pepcid) 40 mg DAILY GTB Last administered on 10/02/16 09:08; Admin Dose 40 MG; Start 09/07/16 at 09:00 Lansoprazole (Prevacid) 30 mg BID@ GTB Last administered on 10/02/16 06:22 ; Admin Dose 30 MG; Start 09/07/16 at 06:00 Levetiracetam (Keppra Liquid) 500 mg BID GTB Last administered on 10/02/16 09: 08; Admin Dose 500 MG; Start 09/07/16 at 09:00 Metoclopramide HCl (Reglan) 5 mg Q8H PRN GTB NAUSEA AND/OR VOMITING; Start 09/06 at 22:30 Sucralfate (Carafate Susp) 1 gm BID GTB Last administered on 10/02/16 09:08; Admin Dose 1 GM; Start 09/07/16 at 09:00 Ondansetron HCl (Zofran Inj) 4 mg Q6H PRN IV NAUSEA AND/OR VOMITING Last administered on 09/17/16 00:52; Admin Dose 4 MG; Start 09/06/16 at 22:30 Morphine Sulfate (morphine) 2 mg Q4H PRN IV PAIN LEVEL 7-10 Last administered on 09/16/16 20:19; Admin Dose 2 MG; Start 09/06/16 at 22:30 Metoclopramide HCl (Reglan) 5 mg Q6H PRN IV RESIDUALS > 100; Start 09/10/16 at 19:00 Clonidine (Catapres) 0.1 mg Q6H PRN GTB ELEVATED SYSTOLIC BP Last administered on 09/15/16 07:04; Admin Dose 0.1 MG; Start 09/13/16 at 23:00 Hydralazine HCl (Apresoline) 10 mg Q6H PRN IV ELEVATED SYSTOLIC BP Last administered on 09/15/16 02:08; Admin Dose 10 MG; Start 09/15/16 at 01:50 Collagenase (Santyl) 1 applic DAILY TOP Last administered on 10/01/16 09:10; Admin Dose 1 APPLIC; Start 09/18/16 at 09:00 Glycopyrrolate (Robinul) 1 mg Q8 GTB Last administered on 10/02/16 06:22; Admin Dose 1 MG; Start 09/19/16 at 09:30 Amikacin Sulfate AMIKACIN PER PHARMACY NOTE XX ; Start 09/24/16 at 14:00 Sodium Chloride/ Dextrose (Nacl/D10w) 1,019.25 ml @ 50 mls/hr [id number] IV Last administered on 10/02/16 12:28; Admin Dose 50 MLS/HR; Start 09/28/16 at 09:00 Miscellaneous Information 1 ea NOTE XX ; Start 09/28/16 at 09:00 Glucose (Glutose) 15 gm Q15M PRN PO DECREASED GLUCOSE; Start 09/28/16 at 09:00 Glucose (Glutose) 22.5 gm Q15M PRN PO DECREASED GLUCOSE; Start 09/28/16 at 09:00 Dextrose (D50w Syringe) 25 ml Q15M PRN IV DECREASED GLUCOSE Last administered on 09/29/16 18:18; Admin Dose 25 ML; Start 09/28/16 at 09:00 Dextrose (D50w Syringe) 50 ml Q15M PRN IV DECREASED GLUCOSE; Start 09/28/16 at 09:00 Glucagon (Glucagen) 1 mg Q15M PRN IM DECREASED GLUCOSE; Start 09/28/16 at 09:00 Glucose (Glutose) 15 gm Q15M PRN BUCCAL DECREASED GLUCOSE; Start 09/28/16 at 09: 00 Insulin Aspart (Novolog Insulin Pen) NOVOLOG *MILD* ALGORI... Q6 SC Last administered on 10/02/16 00:34; Admin Dose 1 UNIT; Start 09/29/16 at 00:00 IV Flush (NS 10 ml) 10 ml PRN PRN IV FLUSH LINE; Start 09/29/16 at 20:30 Epoetin Jeffry (Epogen (Esrd)) 6,000 units MoWeFr@17 SC Last administered on 18:02; Admin Dose 6,000 UNITS; Start 10/01/16 at 17:00 ARUN DIANA NP Oct 02, 2016 12:47
[2016-10-02] MEDS: COLLAGENASE 30 GM TUBE TOP SCH (16:18)
--- NOTE | 2016-10-02 16:18 | PN ---
Date/Time of Note Date/Time of Note DATE: 10/02/16 TIME: 16:17 Assessment/Plan VTE Prophylaxis VTE Prophylaxis Intervention: SCD's Lines/Catheters IV Catheter Type (from [facility]): PICC Line Central line still needed: Yes Urinary Cath still in place: Yes Reason Cath still needed: urinary retention Assessment/Plan Chief Complaint/Hosp Course ASSESSMENT AND PLAN: 1. Severe anemia 2 GI bleed. Continue to monitor hemoglobin and hematocrit. Dr. Singh is following in gastroenterology consultation. 2. Hypovolemic shock, resolved. 3. Acute kidney failure on chronic kidney disease. Continue to monitor BUN and creatinine. Dr. Mk Purdy is following in nephrology consultation. Patient with worsening renal function. Started on Hemodialysis during this admission. 4. Pancytopenia. 5. Ventilator-dependent respiratory failure. 6. Possible healthcare-acquired pneumonia. Dr. Aragon is following in pulmonology consultation. Continue ventilator support, bronchodilators. Status post treatment. 7. Dysphagia with PEG. 8. History of seizure disorder. Continue patient on Keppra. 9. Diastolic dysfunction congestive heart failure with preserved ejection fraction of 60%. 10. S/p sepsis. Dr. Guy is following patient in infectious disease consultation. 11. Status post cerebrovascular accident, status post craniotomy. 12. Mental retardation. Patient needs 6 more days of amikacin upon d/c. Continue Protonix for peptic ulcer disease prophylaxis. Further recommendations based on clinical course. Plan of care discussed with Dr. Mcelroy. Problems: Subjective 24 Hr Interval Summary Free Text/Dictation Patient status post 1 units of packed red blood cells, pending transfusion with hemodialysis. Exam/Review of Systems Vital Signs Vitals Vital Signs Date Time Temp Pulse Resp B/P Pulse Ox O2 Delivery O2 Flow Rate FiO2 10/02/16 15:24 98.2 102 18 105/55 99 10/02/16 13:15 40 09/28/16 13:00 Mechanical Ventilator Intake and Output 10/01/16 10/01/16 10/02/16 15:00 23:00 07:00 Intake Total 680 ml Output Total 50 ml Balance 630 ml Exam Constitutional: alert, well developed Head: atraumatic, normocephalic Eyes: nl conjunctiva ENMT: nl external ears & nose Neck: jvd, supple Respiratory: clear to auscultation Cardiovascular: regular rate and rhythm Gastrointestinal: nl liver, spleen, soft Genitourinary - Male: nl penis, other ( Brar catheter ) Musculoskeletal: nl extremities to inspection, Extremities: normal pulses, bilateral LE s/p vascular intervention Results Result Diagram: 10/02/16 0650 10/02/16 0650 Results 24 hrs Laboratory Tests Test 10/01/16 18:03 10/02/16 00:23 10/02/16 06:18 10/02/16 06:50 Bedside Glucose 174 154 135 Anion Gap 11 Basophils # 0.0 Basophils % 0.5 Blood Urea Nitrogen 52 H Calcium Level 8.4 Carbon Dioxide Level 27 Chloride Level 100 Creatinine 1.73 #H Eosinophils # 0.0 Eosinophils % 0.3 Glucose Level 101 Hematocrit 27.8 #L Hemoglobin 9.2 #L Lymphocytes # 0.1 L Lymphocytes % 1.4 L Mean Corpuscular Hemoglobin 30.5 Mean Corpuscular Hemoglobin Concent 33.1 Mean Corpuscular Volume 92.1 Mean Platelet Volume 10.8 H Monocytes # 0.1 L Monocytes % 1.5 Neutrophils # 6.3 Neutrophils % 95.7 H Nucleated Red Blood Cells # 0.0 Nucleated Red Blood Cells % 0.0 Platelet Count 34 #L Potassium Level 3.1 L Red Blood Count 3.02 #L Red Cell Distribution Width 17.8 H Sodium Level 135 White Blood Count 6.6 Test 10/02/16 12:26 Bedside Glucose 116 Medications Medications Current Medications Acetaminophen (Tylenol Liquid) 640 mg Q6H PRN GTB PAIN OR TEMP ABOVE 38C; Start 09/06/16 at 22:30 Allopurinol (Zyloprim) 200 mg DAILY GTB Last administered on 10/02/16 09:08; Admin Dose 200 MG; Start 09/07/16 at 09:00 Ascorbic Acid (Vitamin C) 500 mg BID GTB Last administered on 10/02/16 09:08; Admin Dose 500 MG; Start 09/07/16 at 09:00 Calcitriol (Rocaltrol) 0.25 mcg DAILY GTB Last administered on 10/02/16 09:08; Admin Dose 0.25 MCG; Start 09/07/16 at 09:00 Chlorhexidine Gluconate (Peridex) 15 ml BID MM Last administered on 10/02/16 09 :08; Admin Dose 15 ML; Start 09/07/16 at 09:00 Famotidine (Pepcid) 40 mg DAILY GTB Last administered on 10/02/16 09:08; Admin Dose 40 MG; Start 09/07/16 at 09:00 Lansoprazole (Prevacid) 30 mg BID@18 GTB Last administered on 10/02/16 06:22 ; Admin Dose 30 MG; Start 09/07/16 at 06:00 Levetiracetam (Keppra Liquid) 500 mg BID GTB Last administered on 10/02/16 09: 08; Admin Dose 500 MG; Start 09/07/16 at 09:00 Metoclopramide HCl (Reglan) 5 mg Q8H PRN GTB NAUSEA AND/OR VOMITING; Start 09/06 at 22:30 Sucralfate (Carafate Susp) 1 gm BID GTB Last administered on 10/02/16 09:08; Admin Dose 1 GM; Start 09/07/16 at 09:00 Ondansetron HCl (Zofran Inj) 4 mg Q6H PRN IV NAUSEA AND/OR VOMITING Last administered on 09/17/16 00:52; Admin Dose 4 MG; Start 09/06/16 at 22:30 Morphine Sulfate (morphine) 2 mg Q4H PRN IV PAIN LEVEL 7-10 Last administered on 09/16/16 20:19; Admin Dose 2 MG; Start 09/06/16 at 22:30 Metoclopramide HCl (Reglan) 5 mg Q6H PRN IV RESIDUALS > 100; Start 09/10/16 at 19:00 Clonidine (Catapres) 0.1 mg Q6H PRN GTB ELEVATED SYSTOLIC BP Last administered on 09/15/16 07:04; Admin Dose 0.1 MG; Start 09/13/16 at 23:00 Hydralazine HCl (Apresoline) 10 mg Q6H PRN IV ELEVATED SYSTOLIC BP Last administered on 09/15/16 02:08; Admin Dose 10 MG; Start 09/15/16 at 01:50 Collagenase (Santyl) 1 applic DAILY TOP Last administered on 10/01/16 09:10; Admin Dose 1 APPLIC; Start 09/18/16 at 09:00 Glycopyrrolate (Robinul) 1 mg Q8 GTB Last administered on 3/7/17at 14:33; Admin Dose 1 MG; Start 09/19/16 at 09:30 Amikacin Sulfate AMIKACIN PER PHARMACY NOTE XX ; Start 09/24/16 at 14:00 Sodium Chloride/ Dextrose (Nacl/D10w) 1,019.25 ml @ 50 mls/hr [id number] IV Last administered on 10/02/16 12:28; Admin Dose 50 MLS/HR; Start 09/28/16 at 09:00 Miscellaneous Information 1 ea NOTE XX ; Start 09/28/16 at 09:00 Glucose (Glutose) 15 gm Q15M PRN PO DECREASED GLUCOSE; Start 09/28/16 at 09:00 Glucose (Glutose) 22.5 gm Q15M PRN PO DECREASED GLUCOSE; Start 09/28/16 at 09:00 Dextrose (D50w Syringe) 25 ml Q15M PRN IV DECREASED GLUCOSE Last administered on 09/29/16 18:18; Admin Dose 25 ML; Start 09/28/16 at 09:00 Dextrose (D50w Syringe) 50 ml Q15M PRN IV DECREASED GLUCOSE; Start 09/28/16 at 09:00 Glucagon (Glucagen) 1 mg Q15M PRN IM DECREASED GLUCOSE; Start 09/28/16 at 09:00 Glucose (Glutose) 15 gm Q15M PRN BUCCAL DECREASED GLUCOSE; Start 09/28/16 at 09: 00 Insulin Aspart (Novolog Insulin Pen) NOVOLOG *MILD* ALGORI... Q6 SC Last administered on 10/02/16 00:34; Admin Dose 1 UNIT; Start 09/29/16 at 00:00 IV Flush (NS 10 ml) 10 ml PRN PRN IV FLUSH LINE; Start 09/29/16 at 20:30 Epoetin Jeffry (Epogen (Esrd)) 6,000 units MoWeFr@17 SC Last administered on 18:02; Admin Dose 6,000 UNITS; Start 10/01/16 at 17:00 QUIN ORTIZ Oct 02, 2016 16:18
[2016-10-02] MEDS ORDERED: POTASSIUM CHLORIDE 20 MEQ POWDER FOR ORAL SOLN GTB ONE (17:00)
--- NOTE | 2016-10-02 17:19 | PN ---
DATE: 10/02/2016 SUBJECTIVE: The patient's general condition is same. He is still poorly responsive. Occasional ey e opening is seen, but he does not follow. OBJECTIVE: VITAL SIGNS: Temperature 98.2, blood pressure 105/55, pulse rate is 102, respirations 18, pulse oxi metry 99% saturation with 40% inhaled oxygen concentration. GENERAL: He is on continuous ventilator support through tracheostomy. He shows no signs of respira tory distress, no episodes of desaturation. NECK: Tracheostomy secretions are clear, they are moderate. No bleeding is seen. HEART: Regular rhythm with sinus tachycardia. CHEST: Breath sounds are heard bilaterally, diminished in both lower lung [place], otherwise clear. ABDOMEN: Soft, not distended, tolerating gastrostomy tube feedings. Bowel sounds are present. EXTREMITIES: Generalized edema. LABORATORY TESTS: Today show a WBC 6600, hemoglobin 9.2, hematocrit 27.8, platelets decreased to 34 ,000. Chemistry panel shows glucose 101, sodium 135, potassium 3.1, BUN 52, creatinine 1.73, calciu m 8.4. IMPRESSION: 1. Chronic respiratory failure, ventilator dependent. 2. Acute renal failure on dialysis. 3. Chronic anemia. 4. History of seizure disorder. 5. Chronic encephalopathy. 6. History of developmental delay. 7. Pancytopenia. PLAN: 1. The patient will be continued on long-term ventilator support. 2. Dialysis as per youth ministry director. 3. Continue tube feedings. 4. Continue bronchodilator inhalation therapy. Dictated By: VEENA STREETER MD, SR/NIKOLAI Conf#: [id number] DID#: [id number]
[2016-10-03] VITALS (24 sets, daily range): BP systolic 91–111; BP diastolic 45–57; PULSE 108–116; RESP 15–32
[2016-10-03] MEDS: LEVALBUTEROL (HFA) 15 GM INHALER INH SCH ×4 (01:00→20:22)
[2016-10-03] MEDS: IPRATROPIUM (HFA) 12.9 GM INHALER INH SCH ×4 (01:00→20:22)
[2016-10-03] MEDS: INSULIN ASPART [NOVOLOG] 3 ML PEN SC SCH ×4 (06:00→18:59)
[2016-10-03] MEDS: LANSOPRAZOLE 30 MG CAP GTB SCH ×2 (06:04→18:59)
[2016-10-03] MEDS: GLYCOPYRROLATE 1 MG TAB GTB SCH ×3 (06:04→21:08)
[2016-10-03 07:24] LABS: ADD SCAN DIFF NO
[2016-10-03 07:42] LABS: CREATININE 1.93 mg/dl (0.61-1.24)
[2016-10-03 07:43] LABS: CALCIUM 8.7 mg/dl (8.4-10.2)
[2016-10-03 07:47] LABS: POTASSIUM 2.8 mmol/L (3.5-5.1)
[2016-10-03 07:56] LABS: ABNORMAL IP MESSAGE 1; HEMATOCRIT 26.4 % (42.0-52.0); HEMOGLOBIN 8.5 g/dl (14.0-18.0); LYMPHOCYTES # 0.1 10^3/ul (0.8-2.9); LYMPHOCYTES % 1.4 % (15.0-51.0); MEAN CORPUSCULAR HEMOGLOBIN 29.8 pg (29.0-33.0); MEAN CORPUSCULAR HGB CONC 32.2 g/dl (32.0-37.0); MEAN CORPUSCULAR VOLUME 92.6 fl (82.0-101.0); MEAN PLATELET VOLUME 11.5 fl (7.4-10.4); MONOCYTE # 0.1 10^3/ul (0.3-0.9); MONOCYTES % 1.4 % (0.0-11.0); RED BLOOD COUNT 2.85 10^6/ul (4.70-6.10); RED CELL DISTRIBUTION WIDTH 17.2 % (11.5-14.5)
[2016-10-03] MEDS ORDERED: POTASSIUM CHLORIDE 20 MEQ POWDER FOR ORAL SOLN GTB ONE (08:30)
[2016-10-03 08:41] LABS: NEUTROPHILS % 96.6 % (39.0-77.0); PLATELET COUNT 20 10^3/UL (140-415)
[2016-10-03] MEDS: COLLAGENASE 30 GM TUBE TOP SCH (09:00)
--- NOTE | 2016-10-03 09:41 | CONS ---
Date/Time of Note Date/Time of Note DATE: 10/03/16 TIME: 09:37 Assessment/Plan Assessment/Plan Additional Assessment/Plan 1. Acute kidney injury on possible chronic kidney disease unknown stage secondary to severe prerenal azotemia causing ischemic acute tubular necrosis in the setting of severe anemia.- continue to have Anuria with uremic symptoms and GI bleeding- started on HD during this admission 2. Severe anemia,s/p PRBC 3. Chronic respiratory failure, status post tracheostomy, on vent. 4. Pancytopenia. 5. History of a seizure disorder. 6. thrombocytopenia PLAN: Pt is on chronic HD now, BP is very low today, will not plan for HD today, BP very low, Give albumin with NS bolus tomorrow we will reassess in AM to see if he needs HD on dy will continue to follow up on patient Consultation Date/Type/Reason Admit Date/Time Sep 06, 2016 at 22:27 Initial Consult Date Aug Type of Consultation: NEPHROLOGY Reason for Consultation ESRD on HD Referring Provider: FREDDY COELLO MD 24 HR Interval Summary Free Text/Dictation patietn BP is very labile today, K 2.8- Platelets are dropping Exam/Review of Systems Vital Signs Vitals Vital Signs Date Time Temp Pulse Resp B/P Pulse Ox O2 Delivery O2 Flow Rate FiO2 10/03/16 08:52 109 10/03/16 08:16 23 97 40 10/03/16 08:14 98.7 91/50 Intake and Output 10/02/16 10/02/16 10/03/16 15:00 23:00 07:00 Intake Total 1100 ml Output Total 50 ml Balance 1050 ml Exam GENERAL: chronically ill-appearing, middle-aged man who is lying comfortably in bed. HEENT: Head atraumatic, normocephalic. Sclerae anicteric. Buccal mucosa dry. NECK: Supple. Tracheostomy present. CHEST: Rise symmetrical. Breath sounds diminished. HEART: S1, S2. ABDOMEN: Soft, bowel tones present. EXTREMITIES: Without cyanosis. Contractured. + permacath Right IJ Results Result Diagram: 10/03/16 0648 10/03/16 0648 Results 24 hrs Laboratory Tests Test 10/02/16 12:26 10/02/16 17:46 10/03/16 00:51 10/03/16 06:03 Bedside Glucose 116 115 112 131 Test 10/03/16 06:48 Anion Gap 16 Basophils # 0.0 Basophils % 0.0 Blood Urea Nitrogen 54 H Calcium Level 8.7 Carbon Dioxide Level 23 Chloride Level 98 Creatinine 1.93 H Eosinophils # 0.0 Eosinophils % 0.0 Glucose Level 111 Hematocrit 26.4 L Hemoglobin 8.5 L Lymphocytes # 0.1 L Lymphocytes % 1.4 L Mean Corpuscular Hemoglobin 29.8 Mean Corpuscular Hemoglobin Concent 32.2 Mean Corpuscular Volume 92.6 Mean Platelet Volume 11.5 H Monocytes # 0.1 L Monocytes % 1.4 Neutrophils # 6.0 Neutrophils % 96.6 H Nucleated Red Blood Cells # 0.0 Nucleated Red Blood Cells % 0.0 Platelet Count 20 #*L Potassium Level 2.8 *L Red Blood Count 2.85 L Red Cell Distribution Width 17.2 H Sodium Level 134 L White Blood Count 6.2 Medications Medications Current Medications Acetaminophen (Tylenol Liquid) 640 mg Q6H PRN GTB PAIN OR TEMP ABOVE 38C; Start 09/06/16 at 22:30 Allopurinol (Zyloprim) 200 mg DAILY GTB Last administered on 10/02/16 09:08; Admin Dose 200 MG; Start 09/07/16 at 09:00 Ascorbic Acid (Vitamin C) 500 mg BID GTB Last administered on 10/02/16 21:09; Admin Dose 500 MG; Start 09/07/16 at 09:00 Calcitriol (Rocaltrol) 0.25 mcg DAILY GTB Last administered on 10/02/16 09:08; Admin Dose 0.25 MCG; Start 09/07/16 at 09:00 Chlorhexidine Gluconate (Peridex) 15 ml BID MM Last administered on 10/02/16 21 :09; Admin Dose 15 ML; Start 09/07/16 at 09:00 Famotidine (Pepcid) 40 mg DAILY GTB Last administered on 10/02/16 09:08; Admin Dose 40 MG; Start 09/07/16 at 09:00 Lansoprazole (Prevacid) 30 mg BID@18 GTB Last administered on 10/03/16 06:04 ; Admin Dose 30 MG; Start 09/07/16 at 06:00 Levetiracetam (Keppra Liquid) 500 mg BID GTB Last administered on 10/02/16 21: 09; Admin Dose 500 MG; Start 09/07/16 at 09:00 Metoclopramide HCl (Reglan) 5 mg Q8H PRN GTB NAUSEA AND/OR VOMITING; Start 09/06 at 22:30 Sucralfate (Carafate Susp) 1 gm BID GTB Last administered on 10/02/16 21:09; Admin Dose 1 GM; Start 09/07/16 at 09:00 Ondansetron HCl (Zofran Inj) 4 mg Q6H PRN IV NAUSEA AND/OR VOMITING Last administered on 09/17/16 00:52; Admin Dose 4 MG; Start 09/06/16 at 22:30 Morphine Sulfate (morphine) 2 mg Q4H PRN IV PAIN LEVEL 7-10 Last administered on 09/16/16 20:19; Admin Dose 2 MG; Start 09/06/16 at 22:30 Metoclopramide HCl (Reglan) 5 mg Q6H PRN IV RESIDUALS > 100; Start 09/10/16 at 19:00 Clonidine (Catapres) 0.1 mg Q6H PRN GTB ELEVATED SYSTOLIC BP Last administered on 09/15/16 07:04; Admin Dose 0.1 MG; Start 09/13/16 at 23:00 Hydralazine HCl (Apresoline) 10 mg Q6H PRN IV ELEVATED SYSTOLIC BP Last administered on 09/15/16 02:08; Admin Dose 10 MG; Start 09/15/16 at 01:50 Collagenase (Santyl) 1 applic DAILY TOP Last administered on 10/02/16 16:18; Admin Dose 1 APPLIC; Start 09/18/16 at 09:00 Glycopyrrolate (Robinul) 1 mg Q8 GTB Last administered on 10/03/16 06:04; Admin Dose 1 MG; Start 09/19/16 at 09:30 Amikacin Sulfate AMIKACIN PER PHARMACY NOTE XX ; Start 09/24/16 at 14:00 Sodium Chloride/ Dextrose (Nacl/D10w) 1,019.25 ml @ 50 mls/hr [id number] IV Last administered on 10/02/16 12:28; Admin Dose 50 MLS/HR; Start 09/28/16 at 09:00 Miscellaneous Information 1 ea NOTE XX ; Start 09/28/16 at 09:00 Glucose (Glutose) 15 gm Q15M PRN PO DECREASED GLUCOSE; Start 09/28/16 at 09:00 Glucose (Glutose) 22.5 gm Q15M PRN PO DECREASED GLUCOSE; Start 09/28/16 at 09:00 Dextrose (D50w Syringe) 25 ml Q15M PRN IV DECREASED GLUCOSE Last administered on 09/29/16 18:18; Admin Dose 25 ML; Start 09/28/16 at 09:00 Dextrose (D50w Syringe) 50 ml Q15M PRN IV DECREASED GLUCOSE; Start 09/28/16 at 09:00 Glucagon (Glucagen) 1 mg Q15M PRN IM DECREASED GLUCOSE; Start 09/28/16 at 09:00 Glucose (Glutose) 15 gm Q15M PRN BUCCAL DECREASED GLUCOSE; Start 09/28/16 at 09: 00 Insulin Aspart (Novolog Insulin Pen) NOVOLOG *MILD* ALGORI... Q6 SC Last administered on 10/02/16 00:34; Admin Dose 1 UNIT; Start 09/29/16 at 00:00 IV Flush (NS 10 ml) 10 ml PRN PRN IV FLUSH LINE; Start 09/29/16 at 20:30 Epoetin Jeffry (Epogen (Esrd)) 6,000 units MoWeFr@17 SC Last administered on 18:02; Admin Dose 6,000 UNITS; Start 10/01/16 at 17:00 KENIA TURCIOS MD Oct 03, 2016 09:41
[2016-10-03] MEDS ORDERED: SOD CHLORIDE 0.9% 1,000 ML IV ONE (10:00)
[2016-10-03] MEDS ORDERED: ALBUMIN HUMAN 25% 100 ML IV ONE (10:00)
[2016-10-03] MEDS: CHLORHEXIDINE GLUCONATE 15 ML UD CUP MM SCH ×2 (10:14→21:07)
[2016-10-03] MEDS: SUCRALFATE (100 MG/ML) 10ML CUP GTB SCH ×2 (10:14→21:07)
[2016-10-03] MEDS: LEVETIRACETAM (100 MG/ML) 5ML CUP GTB SCH ×2 (10:14→21:07)
[2016-10-03] MEDS: SEVELAMER CARBONATE 2.4 GM PKT GTB SCH ×3 (10:14→18:59)
[2016-10-03] MEDS: CALCITRIOL 0.25 MCG CAP GTB SCH (10:15)
[2016-10-03] MEDS: FAMOTIDINE 20 MG TAB GTB SCH (10:16)
[2016-10-03] MEDS: ASCORBIC ACID 500 MG TAB GTB SCH ×2 (10:17→21:07)
[2016-10-03] MEDS: ALLOPURINOL 100 MG TAB GTB SCH (10:18)
--- NOTE | 2016-10-03 12:07 | CONS ---
Date/Time of Note Date/Time of Note DATE: 10/03/16 TIME: 12:06 Assessment/Plan Assessment/Plan Chief Complaint/Hosp Course SUBJECTIVE: No acute changes. Noncommunicative, no fevers, looks comfortable INDWELLINGS: RSC permacath, trach, PEG, LUE PICC 09/29/16. Abx: Amikacin PHYSICAL EXAMINATION: GENERAL: This is a well-developed, fragile, chronically ill-appearing, middle- aged man who is lying comfortably in bed. HEENT: Head atraumatic, normocephalic. Sclerae anicteric. Buccal mucosa dry. NECK: Supple. Tracheostomy present. CHEST: Rise symmetrical. Breath sounds diminished. HEART: S1, S2. ABDOMEN: Soft, bowel tones present. EXTREMITIES: Without cyanosis. Contractured. ASSESSMENT: 1. Status post septic shock. 2. Multiple decubitus with wound culture growing multi-drug resistant organisms ==> on Amikacin. 3. Acute on chronic kidney disease, hemodialysis dependent. 4. Encephalopathy. 5. Seizure disorder. 6. ALLERGIC TO ZITHROMAX, ZOSYN, AND ERYTHROMYCIN. PLAN: Clinically unchanged. Continue abx for 5 more days, local wound care, santos cx prn [facility] staff Problems: Consultation Date/Type/Reason Admit Date/Time Sep 06, 2016 at 22:27 Initial Consult Date 09/07/16 Type of Consultation: id Referring Provider: FREDDY COELLO MD Exam/Review of Systems Vital Signs Vitals Vital Signs Date Time Temp Pulse Resp B/P Pulse Ox O2 Delivery O2 Flow Rate FiO2 10/03/16 11:49 98.6 114 18 93/47 93 10/03/16 10:40 40 Intake and Output 10/02/16 10/02/16 10/03/16 15:00 23:00 07:00 Intake Total 1100 ml Output Total 50 ml Balance 1050 ml Results Result Diagram: 10/03/16 0648 10/03/16 0648 Results 24 hrs Laboratory Tests Test 10/02/16 12:26 10/02/16 17:46 10/03/16 00:51 10/03/16 06:03 Bedside Glucose 116 115 112 131 Test 10/03/16 06:48 Anion Gap 16 Basophils # 0.0 Basophils % 0.0 Blood Urea Nitrogen 54 H Calcium Level 8.7 Carbon Dioxide Level 23 Chloride Level 98 Creatinine 1.93 H Eosinophils # 0.0 Eosinophils % 0.0 Glucose Level 111 Hematocrit 26.4 L Hemoglobin 8.5 L Lymphocytes # 0.1 L Lymphocytes % 1.4 L Mean Corpuscular Hemoglobin 29.8 Mean Corpuscular Hemoglobin Concent 32.2 Mean Corpuscular Volume 92.6 Mean Platelet Volume 11.5 H Monocytes # 0.1 L Monocytes % 1.4 Neutrophils # 6.0 Neutrophils % 96.6 H Nucleated Red Blood Cells # 0.0 Nucleated Red Blood Cells % 0.0 Platelet Count 20 #*L Potassium Level 2.8 *L Red Blood Count 2.85 L Red Cell Distribution Width 17.2 H Sodium Level 134 L White Blood Count 6.2 Medications Medications Current Medications Acetaminophen (Tylenol Liquid) 640 mg Q6H PRN GTB PAIN OR TEMP ABOVE 38C; Start 09/06/16 at 22:30 Allopurinol (Zyloprim) 200 mg DAILY GTB Last administered on 10/03/16 10:18; Admin Dose 200 MG; Start 09/07/16 at 09:00 Ascorbic Acid (Vitamin C) 500 mg BID GTB Last administered on 10/03/16 10:17; Admin Dose 500 MG; Start 09/07/16 at 09:00 Calcitriol (Rocaltrol) 0.25 mcg DAILY GTB Last administered on 10/03/16 10:15; Admin Dose 0.25 MCG; Start 09/07/16 at 09:00 Chlorhexidine Gluconate (Peridex) 15 ml BID MM Last administered on 10/03/16 10 :14; Admin Dose 15 ML; Start 09/07/16 at 09:00 Famotidine (Pepcid) 40 mg DAILY GTB Last administered on 10/03/16 10:16; Admin Dose 40 MG; Start 09/07/16 at 09:00 Lansoprazole (Prevacid) 30 mg BID@18 GTB Last administered on 10/03/16 06:04 ; Admin Dose 30 MG; Start 09/07/16 at 06:00 Levetiracetam (Keppra Liquid) 500 mg BID GTB Last administered on 10/03/16 10: 14; Admin Dose 500 MG; Start 09/07/16 at 09:00 Metoclopramide HCl (Reglan) 5 mg Q8H PRN GTB NAUSEA AND/OR VOMITING; Start 09/06 at 22:30 Sucralfate (Carafate Susp) 1 gm BID GTB Last administered on 10/03/16 10:14; Admin Dose 1 GM; Start 09/07/16 at 09:00 Ondansetron HCl (Zofran Inj) 4 mg Q6H PRN IV NAUSEA AND/OR VOMITING Last administered on 09/17/16 00:52; Admin Dose 4 MG; Start 09/06/16 at 22:30 Morphine Sulfate (morphine) 2 mg Q4H PRN IV PAIN LEVEL 7-10 Last administered on 09/16/16 20:19; Admin Dose 2 MG; Start 09/06/16 at 22:30 Metoclopramide HCl (Reglan) 5 mg Q6H PRN IV RESIDUALS > 100; Start 09/10/16 at 19:00 Clonidine (Catapres) 0.1 mg Q6H PRN GTB ELEVATED SYSTOLIC BP Last administered on 09/15/16 07:04; Admin Dose 0.1 MG; Start 09/13/16 at 23:00 Hydralazine HCl (Apresoline) 10 mg Q6H PRN IV ELEVATED SYSTOLIC BP Last administered on 09/15/16 02:08; Admin Dose 10 MG; Start 09/15/16 at 01:50 Collagenase (Santyl) 1 applic DAILY TOP Last administered on 10/03/16 09:00; Admin Dose 1 APPLIC; Start 09/18/16 at 09:00 Glycopyrrolate (Robinul) 1 mg Q8 GTB Last administered on 10/03/16 06:04; Admin Dose 1 MG; Start 09/19/16 at 09:30 Amikacin Sulfate AMIKACIN PER PHARMACY NOTE XX ; Start 09/24/16 at 14:00 Sodium Chloride/ Dextrose (Nacl/D10w) 1,019.25 ml @ 50 mls/hr [id number] IV Last administered on 10/02/16 12:28; Admin Dose 50 MLS/HR; Start 09/28/16 at 09:00 Miscellaneous Information 1 ea NOTE XX ; Start 09/28/16 at 09:00 Glucose (Glutose) 15 gm Q15M PRN PO DECREASED GLUCOSE; Start 09/28/16 at 09:00 Glucose (Glutose) 22.5 gm Q15M PRN PO DECREASED GLUCOSE; Start 09/28/16 at 09:00 Dextrose (D50w Syringe) 25 ml Q15M PRN IV DECREASED GLUCOSE Last administered on 09/29/16 18:18; Admin Dose 25 ML; Start 09/28/16 at 09:00 Dextrose (D50w Syringe) 50 ml Q15M PRN IV DECREASED GLUCOSE; Start 09/28/16 at 09:00 Glucagon (Glucagen) 1 mg Q15M PRN IM DECREASED GLUCOSE; Start 09/28/16 at 09:00 Glucose (Glutose) 15 gm Q15M PRN BUCCAL DECREASED GLUCOSE; Start 09/28/16 at 09: 00 Insulin Aspart (Novolog Insulin Pen) NOVOLOG *MILD* ALGORI... Q6 SC Last administered on 10/02/16 00:34; Admin Dose 1 UNIT; Start 09/29/16 at 00:00 IV Flush (NS 10 ml) 10 ml PRN PRN IV FLUSH LINE; Start 09/29/16 at 20:30 Epoetin Jeffry (Epogen (Esrd)) 6,000 units MoWeFr@17 SC Last administered on 18:02; Admin Dose 6,000 UNITS; Start 10/01/16 at 17:00 ARUN DIANA NP Oct 03, 2016 12:06
[2016-10-03] MEDS: SODIUM CHLORIDE 23.4% 77 MEQ in DEXTROSE 10% 1,000 ML IV SCH (12:27)
--- NOTE | 2016-10-03 16:06 | CONS ---
Date/Time of Note Date/Time of Note DATE: 10/03/16 TIME: 15:56 Assessment/Plan Assessment/Plan Chief Complaint/Hosp Course The patient is a 56 year old male with mental retardation, ventilator dependent respiratory failure, dysphagia with PEG, history of seizure disorder on Keppra, diastolic dysfunction congestive heart failure with preserved ejection fraction of 60%, status post cerebrovascular accident, status post craniotomy, acute on chronic kidney failure now on dialysis, with GI bleed with Dr. Singh following , hypovolemic and septic shock with multiple decubitus with wound culture growing multi-drug resistant organisms on Amikacin. Hematology was consulted for anemia and thrombocytopenia. # Thrombocytopenia, with platelets of 8 on admission, unclear platelet count at baseline. Likely secondary to sepsis, possibly DIC. Keppra can sometimes cause thrombocytopenia although again unclear baseline platelet count. No evidence of bleeding. - Will check DIC panel, HIV, peripheral smear with path review. Hep panel negative - Will obtain Abd US at bedside if possible - Low suspicion for HIT but patient was given 1 dose heparin on 09/15 and two doses of lovenox 09/07, 09/08, HIT panel sent and is pending - Transfuse < 10, < 20 if febrile, < 50 if bleeding # Normocytic anemia, likely multifactorial due to GI bleed, chronic kidney disease, likely chronic inflammation - Will check iron, ferritin, B12/folate, LDH, retic count - Continue epo Problems: Consultation Date/Type/Reason Admit Date/Time Sep 06, 2016 at 22:27 Date of Consultation: Oct 03, 2016 Type of Consultation: Hematology Reason for Consultation Anemia, thrombocytopenia Hx of Present Illness The patient is a 56 year old male with mental retardation, ventilator dependent respiratory failure, dysphagia with PEG, history of seizure disorder on Keppra, diastolic dysfunction congestive heart failure with preserved ejection fraction of 60%, status post cerebrovascular accident, status post craniotomy, acute on chronic kidney failure now on dialysis, with GI bleed with Dr. Singh following , hypovolemic and septic shock with multiple decubitus with wound culture growing multi-drug resistant organisms on Amikacin. Hematology was consulted for anemia and thrombocytopenia. Patient responds to pain but not voice. No bleeding. Constitutional: requiring IVF, requiring O2 Psychological: nl mood/affect Past Medical History 1. Severe anemia 2/2 GI bleed. 2. Acute kidney failure on chronic kidney disease. 3. Ventilator-dependent respiratory failure. 4. Dysphagia with PEG. 5. History of seizure disorder. Continue patient on Keppra. 6. Diastolic dysfunction congestive heart failure with preserved ejection fraction of 60%. 7. Status post cerebrovascular accident, status post craniotomy. 8. Mental retardation. Family History Significant Family History: no pertinent family hx Social History Resident at [facility] Smoking Status: Unknown if ever smoked Exam/Review of Systems Vital Signs Vitals Vital Signs Date Time Temp Pulse Resp B/P Pulse Ox O2 Delivery O2 Flow Rate FiO2 10/03/16 15:54 98.0 109 18 98/45 98 10/03/16 13:32 40 Intake and Output 10/02/16 10/02/16 10/03/16 15:00 23:00 07:00 Intake Total 1100 ml Output Total 50 ml Balance 1050 ml Exam GENERAL: chronically ill-appearing, middle-aged man who is lying comfortably in bed. HEENT: Head atraumatic, normocephalic. Sclerae anicteric. NECK: Supple. Tracheostomy present, on vent CHEST: Clear to auscultation HEART: RRR ABDOMEN: Soft, bowel tones present, nontender EXTREMITIES: Without cyanosis. Contractured. Results Result Diagram: 10/03/16 0648 10/03/16 0648 Results 24 hrs Laboratory Tests Test 10/02/16 17:46 10/03/16 00:51 10/03/16 06:03 10/03/16 06:48 Bedside Glucose 115 112 131 Anion Gap 16 Basophils # 0.0 Basophils % 0.0 Blood Urea Nitrogen 54 H Calcium Level 8.7 Carbon Dioxide Level 23 Chloride Level 98 Creatinine 1.93 H Eosinophils # 0.0 Eosinophils % 0.0 Glucose Level 111 Hematocrit 26.4 L Hemoglobin 8.5 L Lymphocytes # 0.1 L Lymphocytes % 1.4 L Mean Corpuscular Hemoglobin 29.8 Mean Corpuscular Hemoglobin Concent 32.2 Mean Corpuscular Volume 92.6 Mean Platelet Volume 11.5 H Monocytes # 0.1 L Monocytes % 1.4 Neutrophils # 6.0 Neutrophils % 96.6 H Nucleated Red Blood Cells # 0.0 Nucleated Red Blood Cells % 0.0 Platelet Count 20 #*L Potassium Level 2.8 *L Red Blood Count 2.85 L Red Cell Distribution Width 17.2 H Sodium Level 134 L White Blood Count 6.2 Test 10/03/16 12:36 Bedside Glucose 119 Medications Medications Current Medications Acetaminophen (Tylenol Liquid) 640 mg Q6H PRN GTB PAIN OR TEMP ABOVE 38C; Start 09/06/16 at 22:30 Allopurinol (Zyloprim) 200 mg DAILY GTB Last administered on 10/03/16 10:18; Admin Dose 200 MG; Start 09/07/16 at 09:00 Ascorbic Acid (Vitamin C) 500 mg BID GTB Last administered on 10/03/16 10:17; Admin Dose 500 MG; Start 09/07/16 at 09:00 Calcitriol (Rocaltrol) 0.25 mcg DAILY GTB Last administered on 10/03/16 10:15; Admin Dose 0.25 MCG; Start 09/07/16 at 09:00 Chlorhexidine Gluconate (Peridex) 15 ml BID MM Last administered on 10/03/16 10 :14; Admin Dose 15 ML; Start 09/07/16 at 09:00 Famotidine (Pepcid) 40 mg DAILY GTB Last administered on 10/03/16 10:16; Admin Dose 40 MG; Start 09/07/16 at 09:00 Lansoprazole (Prevacid) 30 mg BID@18 GTB Last administered on 10/03/16 06:04 ; Admin Dose 30 MG; Start 09/07/16 at 06:00 Levetiracetam (Keppra Liquid) 500 mg BID GTB Last administered on 10/03/16 10: 14; Admin Dose 500 MG; Start 09/07/16 at 09:00 Metoclopramide HCl (Reglan) 5 mg Q8H PRN GTB NAUSEA AND/OR VOMITING; Start 09/06 at 22:30 Sucralfate (Carafate Susp) 1 gm BID GTB Last administered on 10/03/16 10:14; Admin Dose 1 GM; Start 09/07/16 at 09:00 Ondansetron HCl (Zofran Inj) 4 mg Q6H PRN IV NAUSEA AND/OR VOMITING Last administered on 09/17/16 00:52; Admin Dose 4 MG; Start 09/06/16 at 22:30 Morphine Sulfate (morphine) 2 mg Q4H PRN IV PAIN LEVEL 7-10 Last administered on 09/16/16 20:19; Admin Dose 2 MG; Start 09/06/16 at 22:30 Metoclopramide HCl (Reglan) 5 mg Q6H PRN IV RESIDUALS > 100; Start 09/10/16 at 19:00 Clonidine (Catapres) 0.1 mg Q6H PRN GTB ELEVATED SYSTOLIC BP Last administered on 09/15/16 07:04; Admin Dose 0.1 MG; Start 09/13/16 at 23:00 Hydralazine HCl (Apresoline) 10 mg Q6H PRN IV ELEVATED SYSTOLIC BP Last administered on 09/15/16 02:08; Admin Dose 10 MG; Start 09/15/16 at 01:50 Collagenase (Santyl) 1 applic DAILY TOP Last administered on 10/03/16 09:00; Admin Dose 1 APPLIC; Start 09/18/16 at 09:00 Glycopyrrolate (Robinul) 1 mg Q8 GTB Last administered on 10/03/16 14:01; Admin Dose 1 MG; Start 09/19/16 at 09:30 Amikacin Sulfate AMIKACIN PER PHARMACY NOTE XX ; Start 09/24/16 at 14:00 Sodium Chloride/ Dextrose (Nacl/D10w) 1,019.25 ml @ 50 mls/hr [id number] IV Last administered on 10/03/16 12:27; Admin Dose 50 MLS/HR; Start 09/28/16 at 09:00 Miscellaneous Information 1 ea NOTE XX ; Start 09/28/16 at 09:00 Glucose (Glutose) 15 gm Q15M PRN PO DECREASED GLUCOSE; Start 09/28/16 at 09:00 Glucose (Glutose) 22.5 gm Q15M PRN PO DECREASED GLUCOSE; Start 09/28/16 at 09:00 Dextrose (D50w Syringe) 25 ml Q15M PRN IV DECREASED GLUCOSE Last administered on 09/29/16 18:18; Admin Dose 25 ML; Start 09/28/16 at 09:00 Dextrose (D50w Syringe) 50 ml Q15M PRN IV DECREASED GLUCOSE; Start 09/28/16 at 09:00 Glucagon (Glucagen) 1 mg Q15M PRN IM DECREASED GLUCOSE; Start 09/28/16 at 09:00 Glucose (Glutose) 15 gm Q15M PRN BUCCAL DECREASED GLUCOSE; Start 09/28/16 at 09: 00 Insulin Aspart (Novolog Insulin Pen) NOVOLOG *MILD* ALGORI... Q6 SC Last administered on 10/02/16 00:34; Admin Dose 1 UNIT; Start 09/29/16 at 00:00 IV Flush (NS 10 ml) 10 ml PRN PRN IV FLUSH LINE; Start 09/29/16 at 20:30 Epoetin Jeffry (Epogen (Esrd)) 6,000 units MoWeFr@17 SC Last administered on 18:02; Admin Dose 6,000 UNITS; Start 10/01/16 at 17:00 TONORMA MD Oct 03, 2016 16:06
--- NOTE | 2016-10-03 16:28 | PN ---
DATE: 10/03/2016 SUBJECTIVE: The patient is breathing comfortably with the ventilator support through tracheostomy. His mental status is same. He is mostly noncognitive except for minimal eye opening, but he does n ot follow. VITAL SIGNS: Show temperature 98.6, blood pressure 93/47, pulse rate of 114, respiratory rate of 18 , pulse oximetry 98% saturation on 40% inhaled oxygen concentration. NECK: Tracheal secretions are clear. No bleeding is seen. HEART: Regular rhythm with sinus tachycardia. CHEST: Breath sounds are diminished somewhat in the lower lung [place], otherwise clear. ABDOMEN: Soft, tolerating gastrostomy tube feedings. Bowel sounds are normally present. EXTREMITIES: Show generalized edema. The patient had an episode of hypotension during dialysis. Will adjust regularly scheduled for his renal failure. IMPRESSION: 1. Chronic respiratory failure, ventilator dependent. 2. Acute renal failure, on dialysis. 3. Chronic anemia. 4. History of seizure disorder. 5. Chronic encephalopathy. 6. History of developmental delay. 7. Pancytopenia. PLAN: 1. Continue long-term ventilator support. 2. Continue dialysis per fulfillment representative. 3. Continue tube feedings. 4. Continue bronchodilator inhalation therapy to maintain pulmonary hygiene and clear the secretion s. Dictated By: VEENA STREETER MD SR/NIKOLAI Conf#: [id number] DID#: [id number]
--- NOTE | 2016-10-03 18:47 | PN ---
Date/Time of Note Date/Time of Note DATE: 10/03/16 TIME: 18:45 Assessment/Plan VTE Prophylaxis VTE Prophylaxis Intervention: SCD's Lines/Catheters [facility] PICC Line Central line still needed: Yes Urinary Cath still in place: Yes Reason Cath still needed: urinary retention Assessment/Plan Chief Complaint/Hosp Course ASSESSMENT AND PLAN: 1. Severe anemia 2 GI bleed. Continue to monitor hemoglobin and hematocrit. Dr. Singh is following in gastroenterology consultation. Dr. Madyson sanchez is following in hematology consultation. 2. Hypovolemic shock, resolved. 3. Acute kidney failure on chronic kidney disease. Continue to monitor BUN and creatinine. Dr. Mk Purdy is following in nephrology consultation. Patient with worsening renal function. Started on Hemodialysis during this admission. 4. Pancytopenia. 5. Ventilator-dependent respiratory failure. 6. Possible healthcare-acquired pneumonia. Dr. Aragon is following in pulmonology consultation. Continue ventilator support, bronchodilators. Status post treatment. 7. Dysphagia with PEG. 8. History of seizure disorder. Continue patient on Keppra. 9. Diastolic dysfunction congestive heart failure with preserved ejection fraction of 60%. 10. S/p sepsis. Dr. Guy is following patient in infectious disease consultation. 11. Status post cerebrovascular accident, status post craniotomy. 12. Mental retardation. 13. Hypokalemia, potassium replaced. Continue Protonix for peptic ulcer disease prophylaxis. Further recommendations based on clinical course. Plan of care discussed with Dr. Mcelroy. Problems: Exam/Review of Systems Vital Signs Vitals Vital Signs Date Time Temp Pulse Resp B/P Pulse Ox O2 Delivery O2 Flow Rate FiO2 10/03/16 17:01 116 10/03/16 16:28 20 98 40 10/03/16 15:54 98.0 98/45 Intake and Output 10/02/16 10/02/16 10/03/16 15:00 23:00 07:00 Intake Total 1100 ml Output Total 50 ml Balance 1050 ml Exam Constitutional: alert, well developed Head: atraumatic, normocephalic Eyes: nl conjunctiva ENMT: nl external ears & nose Neck: jvd, supple Respiratory: clear to auscultation Cardiovascular: regular rate and rhythm Gastrointestinal: nl liver, spleen, soft Genitourinary - Male: nl penis, other ( Brar catheter ) Musculoskeletal: nl extremities to inspection, Extremities: normal pulses, bilateral LE s/p vascular intervention Results Result Diagram: 10/03/16 0648 10/03/16 0648 Results 24 hrs Laboratory Tests Test 10/03/16 00:51 10/03/16 06:03 10/03/16 06:48 10/03/16 12:36 Bedside Glucose 112 131 119 Anion Gap 16 Basophils # 0.0 Basophils % 0.0 Blood Urea Nitrogen 54 H Calcium Level 8.7 Carbon Dioxide Level 23 Chloride Level 98 Creatinine 1.93 H Eosinophils # 0.0 Eosinophils % 0.0 Glucose Level 111 Hematocrit 26.4 L Hemoglobin 8.5 L Lymphocytes # 0.1 L Lymphocytes % 1.4 L Mean Corpuscular Hemoglobin 29.8 Mean Corpuscular Hemoglobin Concent 32.2 Mean Corpuscular Volume 92.6 Mean Platelet Volume 11.5 H Monocytes # 0.1 L Monocytes % 1.4 Neutrophils # 6.0 Neutrophils % 96.6 H Nucleated Red Blood Cells # 0.0 Nucleated Red Blood Cells % 0.0 Platelet Count 20 #*L Potassium Level 2.8 *L Red Blood Count 2.85 L Red Cell Distribution Width 17.2 H Sodium Level 134 L White Blood Count 6.2 Medications Medications Current Medications Acetaminophen (Tylenol Liquid) 640 mg Q6H PRN GTB PAIN OR TEMP ABOVE 38C; Start 09/06/16 at 22:30 Allopurinol (Zyloprim) 200 mg DAILY GTB Last administered on 10/03/16 10:18; Admin Dose 200 MG; Start 09/07/16 at 09:00 Ascorbic Acid (Vitamin C) 500 mg BID GTB Last administered on 10/03/16 10:17; Admin Dose 500 MG; Start 09/07/16 at 09:00 Calcitriol (Rocaltrol) 0.25 mcg DAILY GTB Last administered on 10/03/16 10:15; Admin Dose 0.25 MCG; Start 09/07/16 at 09:00 Chlorhexidine Gluconate (Peridex) 15 ml BID MM Last administered on 10/03/16 10 :14; Admin Dose 15 ML; Start 09/07/16 at 09:00 Famotidine (Pepcid) 40 mg DAILY GTB Last administered on 10/03/16 10:16; Admin Dose 40 MG; Start 09/07/16 at 09:00 Lansoprazole (Prevacid) 30 mg BID@ GTB Last administered on 10/03/16 06:04 ; Admin Dose 30 MG; Start 09/07/16 at 06:00 Levetiracetam (Keppra Liquid) 500 mg BID GTB Last administered on 10/03/16 10: 14; Admin Dose 500 MG; Start 09/07/16 at 09:00 Metoclopramide HCl (Reglan) 5 mg Q8H PRN GTB NAUSEA AND/OR VOMITING; Start 09/06 at 22:30 Sucralfate (Carafate Susp) 1 gm BID GTB Last administered on 10/03/16 10:14; Admin Dose 1 GM; Start 09/07/16 at 09:00 Ondansetron HCl (Zofran Inj) 4 mg Q6H PRN IV NAUSEA AND/OR VOMITING Last administered on 09/17/16 00:52; Admin Dose 4 MG; Start 09/06/16 at 22:30 Morphine Sulfate (morphine) 2 mg Q4H PRN IV PAIN LEVEL 7-10 Last administered on 09/16/16 20:19; Admin Dose 2 MG; Start 09/06/16 at 22:30 Metoclopramide HCl (Reglan) 5 mg Q6H PRN IV RESIDUALS > 100; Start 09/10/16 at 19:00 Clonidine (Catapres) 0.1 mg Q6H PRN GTB ELEVATED SYSTOLIC BP Last administered on 09/15/16 07:04; Admin Dose 0.1 MG; Start 09/13/16 at 23:00 Hydralazine HCl (Apresoline) 10 mg Q6H PRN IV ELEVATED SYSTOLIC BP Last administered on 09/15/16 02:08; Admin Dose 10 MG; Start 09/15/16 at 01:50 Collagenase (Santyl) 1 applic DAILY TOP Last administered on 10/03/16 09:00; Admin Dose 1 APPLIC; Start 09/18/16 at 09:00 Glycopyrrolate (Robinul) 1 mg Q8 GTB Last administered on 10/03/16 14:01; Admin Dose 1 MG; Start 09/19/16 at 09:30 Amikacin Sulfate AMIKACIN PER PHARMACY NOTE XX ; Start 09/24/16 at 14:00 Sodium Chloride/ Dextrose (Nacl/D10w) 1,019.25 ml @ 50 mls/hr [id number] IV Last administered on 10/03/16 12:27; Admin Dose 50 MLS/HR; Start 09/28/16 at 09:00 Miscellaneous Information 1 ea NOTE XX ; Start 09/28/16 at 09:00 Glucose (Glutose) 15 gm Q15M PRN PO DECREASED GLUCOSE; Start 09/28/16 at 09:00 Glucose (Glutose) 22.5 gm Q15M PRN PO DECREASED GLUCOSE; Start 09/28/16 at 09:00 Dextrose (D50w Syringe) 25 ml Q15M PRN IV DECREASED GLUCOSE Last administered on 09/29/16 18:18; Admin Dose 25 ML; Start 09/28/16 at 09:00 Dextrose (D50w Syringe) 50 ml Q15M PRN IV DECREASED GLUCOSE; Start 09/28/16 at 09:00 Glucagon (Glucagen) 1 mg Q15M PRN IM DECREASED GLUCOSE; Start 09/28/16 at 09:00 Glucose (Glutose) 15 gm Q15M PRN BUCCAL DECREASED GLUCOSE; Start 09/28/16 at 09: 00 Insulin Aspart (Novolog Insulin Pen) NOVOLOG *MILD* ALGORI... Q6 SC Last administered on 10/02/16 00:34; Admin Dose 1 UNIT; Start 09/29/16 at 00:00 IV Flush (NS 10 ml) 10 ml PRN PRN IV FLUSH LINE; Start 09/29/16 at 20:30 Epoetin Jeffry (Epogen (Esrd)) 6,000 units MoWeFr@17 SC Last administered on 18:02; Admin Dose 6,000 UNITS; Start 10/01/16 at 17:00 QUIN ORTIZ Oct 03, 2016 18:47
[2016-10-03] MEDS: EPOETIN 3000 UNITS/1 ML INJ (ESRD) SC SCH (18:57)
[2016-10-04] VITALS (30 sets, daily range): BP systolic 93–127; BP diastolic 41–77; PULSE 95–117; RESP 16–28
[2016-10-04] MEDS: LEVALBUTEROL (HFA) 15 GM INHALER INH SCH ×4 (01:38→20:35)
[2016-10-04] MEDS: IPRATROPIUM (HFA) 12.9 GM INHALER INH SCH ×4 (01:38→20:35)
[2016-10-04] MEDS: ACETAMINOPHEN 650MG/20.3ML CUP GTB PRN (05:44)
[2016-10-04] MEDS: LANSOPRAZOLE 30 MG CAP GTB SCH ×2 (05:44→18:23)
[2016-10-04] MEDS: GLYCOPYRROLATE 1 MG TAB GTB SCH ×3 (05:45→20:14)
[2016-10-04] MEDS: INSULIN ASPART [NOVOLOG] 3 ML PEN SC SCH ×5 (05:47→22:52)
[2016-10-04] MEDS: SODIUM CHLORIDE 23.4% 77 MEQ in DEXTROSE 10% 1,000 ML IV SCH (08:00)
--- NOTE | 2016-10-04 08:34 | RADRPT ---
PROCEDURE: US Abdomen (right upper quadrant). CLINICAL INDICATION: Evaluate for cirrhosis. TECHNIQUE: Multiple real-time longitudinal and transverse images of the right upper quadrant of th e abdomen were acquired utilizing a curved array transducer. Images were reviewed on a high-resoluti on PACS workstation. COMPARISON: Previous renal ultrasound dated 09/07/2016 FINDINGS: The study is technically quite limited due to the patient's inability to cooperate. The liver is enlarged and heterogeneous in echotexture and 19.3 cm. without focal mass or intrahepat ic biliary dilatation. Pancreas is suboptimally visualized. The gallbladder is not seen. The right kidney measures 10.9 cm in length. There is no obvious mass or hydronephrosis appreciated . IMPRESSION: 1. Technically limited study demonstrating mild hepatomegaly with a slightly coarsened echotexture which may indicate steatosis/hepatic cellular disease. 2. Nonvisualization of the gallbladder and suboptimal visualization of the pancreas. RPTAT: [facility] Physician Jessie Date Time Electronically viewed and signed by Physician Jessie on 10/04/2016 08:33 /
[2016-10-04] MEDS: COLLAGENASE 30 GM TUBE TOP SCH (09:00)
[2016-10-04] MEDS: SEVELAMER CARBONATE 2.4 GM PKT GTB SCH ×3 (10:00→18:23)
[2016-10-04] MEDS: CHLORHEXIDINE GLUCONATE 15 ML UD CUP MM SCH ×2 (10:44→20:13)
[2016-10-04] MEDS: LEVETIRACETAM (100 MG/ML) 5ML CUP GTB SCH ×2 (10:44→20:13)
[2016-10-04] MEDS: ASCORBIC ACID 500 MG TAB GTB SCH ×2 (10:45→20:13)
[2016-10-04] MEDS: ALLOPURINOL 100 MG TAB GTB SCH (10:45)
[2016-10-04] MEDS: FAMOTIDINE 20 MG TAB GTB SCH (10:45)
[2016-10-04] MEDS: CALCITRIOL 0.25 MCG CAP GTB SCH (10:45)
[2016-10-04] MEDS: SUCRALFATE (100 MG/ML) 10ML CUP GTB SCH ×2 (10:56→20:13)
[2016-10-04 12:29] LABS: ADD SCAN DIFF NO
[2016-10-04 12:30] LABS: RETICULOCYTE COUNT % 0.6 % (0.5-1.5)
[2016-10-04 12:42] LABS: IRON 26 ug/dl (35-150)
[2016-10-04 12:43] LABS: LACTATE DEHYDROGENASE 148 IU/L (313-618)
[2016-10-04 12:45] LABS: POTASSIUM 3.3 mmol/L (3.5-5.1)
[2016-10-04 12:46] LABS: ABNORMAL IP MESSAGE 1; HEMATOCRIT 21.7 % (42.0-52.0); HEMOGLOBIN 7.1 g/dl (14.0-18.0); LYMPHOCYTES # 0.2 10^3/ul (0.8-2.9); LYMPHOCYTES % 3.4 % (15.0-51.0); MEAN CORPUSCULAR HEMOGLOBIN 29.6 pg (29.0-33.0); MEAN CORPUSCULAR HGB CONC 32.7 g/dl (32.0-37.0); MEAN CORPUSCULAR VOLUME 90.4 fl (82.0-101.0); MEAN PLATELET VOLUME 12.7 fl (7.4-10.4); MONOCYTE # 0.1 10^3/ul (0.3-0.9); MONOCYTES % 3.2 % (0.0-11.0); NEUTROPHIL # 4.1 10^3/ul (1.6-7.5); RED CELL DISTRIBUTION WIDTH 18.1 % (11.5-14.5); WHITE BLOOD COUNT 4.4 10^3/ul (4.8-10.8)
[2016-10-04 12:48] LABS: CALCIUM 9.6 mg/dl (8.4-10.2); CREATININE 2.06 mg/dl (0.61-1.24)
[2016-10-04 12:51] LABS: TOTAL IRON BINDING CAPACITY 72 ug/dl (241-421)
[2016-10-04 12:55] LABS: NEUTROPHILS % 92.7 % (39.0-77.0); PLATELET COUNT 13 10^3/UL (140-415)
[2016-10-04 12:58] LABS: INR 1.59; PARTIAL THROMBOPLASTIN TIME 45.3 Sec (25.0-35.0); PLATELET COUNT 13 10^3/UL (140-440); PROTIME 19.1 Sec (12.2-14.2); PT RATIO 1.5
[2016-10-04] MEDS ORDERED: MIDODRINE 5 MG TAB PO ONE (13:00)
[2016-10-04 13:01] LABS: D-DIMER 2923.56 ng/ml (<460)
[2016-10-04 13:06] LABS: THROMBIN TIME 16.1 SEC (13.8-19.1)
[2016-10-04 13:23] LABS: FIBRIN SPLIT PRODUCT <10 ug/ml (<10)
--- NOTE | 2016-10-04 13:37 | CONS ---
Date/Time of Note Date/Time of Note DATE: 10/04/16 TIME: 13:35 Assessment/Plan Assessment/Plan Chief Complaint/Hosp Course SUBJECTIVE: Spiked fever last night, afebrile, looks comfortable INDWELLINGS: RSC permacath, trach, PEG, LUE PICC 09/29/16. Abx: Amikacin PHYSICAL EXAMINATION: GENERAL: This is a well-developed, fragile, chronically ill-appearing, middle- aged man who is lying comfortably in bed. HEENT: Head atraumatic, normocephalic. Sclerae anicteric. Buccal mucosa dry. NECK: Supple. Tracheostomy present. CHEST: Rise symmetrical. Breath sounds diminished. HEART: S1, S2. ABDOMEN: Soft, bowel tones present. EXTREMITIES: Without cyanosis. Contractured. ASSESSMENT: 1. Status post septic shock. 2. Multiple decubitus with wound culture growing multi-drug resistant organisms ==> on Amikacin. 3. Acute on chronic kidney disease, hemodialysis dependent. 4. Encephalopathy. 5. Seizure disorder. 6. ALLERGIC TO ZITHROMAX, ZOSYN, AND ERYTHROMYCIN. PLAN: Clinically unchanged, s/p fever, will repeat cx's, add Vanco, continue abx, local wound care, HD DW staff Problems: Consultation Date/Type/Reason Admit Date/Time Sep 06, 2016 at 22:27 Initial Consult Date 09/07/16 Type of Consultation: ID Referring Provider: FREDDY COELLO MD Exam/Review of Systems Vital Signs Vitals Vital Signs Date Time Temp Pulse Resp B/P Pulse Ox O2 Delivery O2 Flow Rate FiO2 10/04/16 13:25 10 20 98 40 10/04/16 11:25 99.3 100/55 Intake and Output 10/03/16 10/03/16 10/04/16 15:00 23:00 07:00 Intake Total 450 ml 1050 ml Output Total 100 ml 200 ml Balance 350 ml 850 ml Results Result Diagram: 10/04/16 1145 10/04/16 1140 Results 24 hrs Laboratory Tests Test 10/03/16 18:54 10/04/16 00:11 10/04/16 05:43 10/04/16 11:40 Bedside Glucose 153 157 151 Absolute Reticulocyte Count 0.015 L Anion Gap 16 Basophils # 0.0 Basophils % 0.0 Blood Urea Nitrogen 69 H Calcium Level 9.6 Carbon Dioxide Level 21 Chloride Level 99 Creatinine 2.06 H Eosinophils # 0.0 Eosinophils % 0.0 Ferritin Pending Folate Pending Glucose Level 104 HIV (1&2) Antibody NEGATIVE Hematocrit 21.7 L Hemoglobin 7.1 L Iron Level 26 L Lactate Dehydrogenase 148 L Lymphocytes # 0.2 L Lymphocytes % 3.4 L Mean Corpuscular Hemoglobin 29.6 Mean Corpuscular Hemoglobin Concent 32.7 Mean Corpuscular Volume 90.4 Mean Platelet Volume 12.7 H Monocytes # 0.1 L Monocytes % 3.2 Neutrophils # 4.1 Neutrophils % 92.7 H Nucleated Red Blood Cells # 0.0 Nucleated Red Blood Cells % 0.0 Percent Iron Saturation 36 Percent Reticulocyte Count 0.6 Platelet Count 13 #*L Potassium Level 3.3 L Red Blood Count 2.40 L Red Cell Distribution Width 18.1 H Sodium Level 133 L Total Iron Binding Capacity 72 L Vitamin B12 Level Pending White Blood Count 4.4 #L Test 10/04/16 11:45 10/04/16 12:57 Activated Partial Thromboplast Time 45.3 H D-Dimer 2923.56 H D-Dimer Comment Fibrinogen 215.0 INR International Normalized Ratio 1.59 Plasma Fibrin Degradation Products <10 Platelet Count 13 *L Prothrombin Time 19.1 #H Prothrombin Time Ratio 1.5 Thrombin Time 16.1 Bedside Glucose 124 Medications Medications Current Medications Acetaminophen (Tylenol Liquid) 640 mg Q6H PRN GTB PAIN OR TEMP ABOVE 38C Last administered on 10/04/16 05:44; Admin Dose 640 MG; Start 09/06/16 at 22:30 Allopurinol (Zyloprim) 200 mg DAILY GTB Last administered on 10/04/16 10:45; Admin Dose 200 MG; Start 09/07/16 at 09:00 Ascorbic Acid (Vitamin C) 500 mg BID GTB Last administered on 10/04/16 10:45; Admin Dose 500 MG; Start 09/07/16 at 09:00 Calcitriol (Rocaltrol) 0.25 mcg DAILY GTB Last administered on 10/04/16 10:45; Admin Dose 0.25 MCG; Start 09/07/16 at 09:00 Chlorhexidine Gluconate (Peridex) 15 ml BID MM Last administered on 10/04/16 10 :44; Admin Dose 15 ML; Start 09/07/16 at 09:00 Famotidine (Pepcid) 40 mg DAILY GTB Last administered on 10/04/16 10:45; Admin Dose 40 MG; Start 09/07/16 at 09:00 Lansoprazole (Prevacid) 30 mg BID@18 GTB Last administered on 10/04/16 05:44 ; Admin Dose 30 MG; Start 09/07/16 at 06:00 Levetiracetam (Keppra Liquid) 500 mg BID GTB Last administered on 10/04/16 10: 44; Admin Dose 500 MG; Start 09/07/16 at 09:00 Metoclopramide HCl (Reglan) 5 mg Q8H PRN GTB NAUSEA AND/OR VOMITING; Start 09/06 at 22:30 Sucralfate (Carafate Susp) 1 gm BID GTB Last administered on 10/04/16 10:56; Admin Dose 1 GM; Start 09/07/16 at 09:00 Ondansetron HCl (Zofran Inj) 4 mg Q6H PRN IV NAUSEA AND/OR VOMITING Last administered on 09/17/16 00:52; Admin Dose 4 MG; Start 09/06/16 at 22:30 Morphine Sulfate (morphine) 2 mg Q4H PRN IV PAIN LEVEL 7-10 Last administered on 09/16/16 20:19; Admin Dose 2 MG; Start 09/06/16 at 22:30 Metoclopramide HCl (Reglan) 5 mg Q6H PRN IV RESIDUALS > 100; Start 09/10/16 at 19:00 Clonidine (Catapres) 0.1 mg Q6H PRN GTB ELEVATED SYSTOLIC BP Last administered on 09/15/16 07:04; Admin Dose 0.1 MG; Start 09/13/16 at 23:00 Hydralazine HCl (Apresoline) 10 mg Q6H PRN IV ELEVATED SYSTOLIC BP Last administered on 09/15/16 02:08; Admin Dose 10 MG; Start 09/15/16 at 01:50 Collagenase (Santyl) 1 applic DAILY TOP Last administered on 10/04/16 09:00; Admin Dose 1 APPLIC; Start 09/18/16 at 09:00 Glycopyrrolate (Robinul) 1 mg Q8 GTB Last administered on 10/04/16 05:45; Admin Dose 1 MG; Start 09/19/16 at 09:30 Amikacin Sulfate AMIKACIN PER PHARMACY NOTE XX ; Start 09/24/16 at 14:00 Sodium Chloride/ Dextrose (Nacl/D10w) 1,019.25 ml @ 50 mls/hr [id number] IV Last administered on 10/03/16 12:27; Admin Dose 50 MLS/HR; Start 09/28/16 at 09:00 Miscellaneous Information 1 ea NOTE XX ; Start 09/28/16 at 09:00 Glucose (Glutose) 15 gm Q15M PRN PO DECREASED GLUCOSE; Start 09/28/16 at 09:00 Glucose (Glutose) 22.5 gm Q15M PRN PO DECREASED GLUCOSE; Start 09/28/16 at 09:00 Dextrose (D50w Syringe) 25 ml Q15M PRN IV DECREASED GLUCOSE Last administered on 09/29/16 18:18; Admin Dose 25 ML; Start 09/28/16 at 09:00 Dextrose (D50w Syringe) 50 ml Q15M PRN IV DECREASED GLUCOSE; Start 09/28/16 at 09:00 Glucagon (Glucagen) 1 mg Q15M PRN IM DECREASED GLUCOSE; Start 09/28/16 at 09:00 Glucose (Glutose) 15 gm Q15M PRN BUCCAL DECREASED GLUCOSE; Start 09/28/16 at 09: 00 Insulin Aspart (Novolog Insulin Pen) NOVOLOG *MILD* ALGORI... Q6 SC Last administered on 10/03/16 18:59; Admin Dose 1 UNIT; Start 09/29/16 at 00:00 IV Flush (NS 10 ml) 10 ml PRN PRN IV FLUSH LINE; Start 09/29/16 at 20:30 Epoetin Jeffry (Epogen (Esrd)) 6,000 units MoWeFr@17 SC Last administered on 18:57; Admin Dose 6,000 UNITS; Start 10/01/16 at 17:00 ARUN DIANA NP Oct 04, 2016 13:36
[2016-10-04 13:48] LABS: FOLATE 5.5 ng/ml (2.8-20.0)
[2016-10-04] MEDS ORDERED: VANCOMYCIN IV PER PHARMACY XX SCH (14:00)
--- NOTE | 2016-10-04 14:33 | CONS ---
Date/Time of Note Date/Time of Note DATE: 10/04/16 TIME: 14:29 Assessment/Plan Assessment/Plan Chief Complaint/Hosp Course The patient is a 56 year old male with mental retardation, ventilator dependent respiratory failure, dysphagia with PEG, history of seizure disorder on Keppra, diastolic dysfunction congestive heart failure with preserved ejection fraction of 60%, status post cerebrovascular accident, status post craniotomy, acute on chronic kidney failure now on dialysis, with GI bleed with Dr. Singh following , hypovolemic and septic shock with multiple decubitus with wound culture growing multi-drug resistant organisms on Amikacin. Hematology was consulted for anemia and thrombocytopenia. # Thrombocytopenia, with platelets of 8 on admission, unclear platelet count at baseline. Likely secondary to sepsis, possibly DIC. Keppra can sometimes cause thrombocytopenia although again unclear baseline platelet count. No evidence of bleeding. - Likely due to sepsis particularly in the setting of recent fever, DIC panel may suggest component of DIC with prolongs coags and elevated D dimer though fibrin split products not elevated, pending peripheral smear with path review. HIV and Hep panel negative. Continue to monitor platelet count, especially with the addition of vancomycin which can often cause thrombocytopenia. - Will obtain Abd US at bedside if possible - Low suspicion for HIT but patient was given 1 dose heparin on 09/15 and two doses of lovenox 09/07, 09/08, HIT panel sent and is pending - Will transfuse 2 units pRBCs today for Hgb 7.1 and 1 unit platelets for plt 13 # Normocytic anemia, likely multifactorial due to GI bleed, chronic kidney disease, likely chronic inflammation - Iron panel suggests anemia of chronic inflammation, pending ferritin; B12/ folate WNL, LDH not elevated, retic count inappropriately low - Continue epo Problems: Consultation Date/Type/Reason Admit Date/Time Sep 06, 2016 at 22:27 Initial Consult Date 10/03/16 Type of Consultation: Hematology/Oncology Referring Provider: FREDDY COELLO MD 24 HR Interval Summary Free Text/Dictation The patient had a fever this morning, with plan for repeat cultures and addition of vancomycin. No bleeding. Exam/Review of Systems Vital Signs Vitals Vital Signs Date Time Temp Pulse Resp B/P Pulse Ox O2 Delivery O2 Flow Rate FiO2 10/04/16 13:25 10 20 98 40 10/04/16 11:25 99.3 100/55 Intake and Output 10/03/16 10/03/16 10/04/16 15:00 23:00 07:00 Intake Total 450 ml 1050 ml Output Total 100 ml 200 ml Balance 350 ml 850 ml Exam GENERAL: chronically ill-appearing, middle-aged man who is lying comfortably in bed. HEENT: Head atraumatic, normocephalic. Sclerae anicteric. NECK: Supple. Tracheostomy present, on vent CHEST: Clear to auscultation HEART: RRR ABDOMEN: Soft, bowel tones present, nontender EXTREMITIES: Without cyanosis. Contractured. Results Result Diagram: 10/04/16 1145 10/04/16 1140 Results 24 hrs Laboratory Tests Test 10/03/16 18:54 10/04/16 00:11 10/04/16 05:43 10/04/16 11:40 Bedside Glucose 153 157 151 Absolute Reticulocyte Count 0.015 L Anion Gap 16 Basophils # 0.0 Basophils % 0.0 Blood Urea Nitrogen 69 H Calcium Level 9.6 Carbon Dioxide Level 21 Chloride Level 99 Creatinine 2.06 H Eosinophils # 0.0 Eosinophils % 0.0 Ferritin Pending Folate 5.5 Glucose Level 104 HIV (1&2) Antibody NEGATIVE Hematocrit 21.7 L Hemoglobin 7.1 L Iron Level 26 L Lactate Dehydrogenase 148 L Lymphocytes # 0.2 L Lymphocytes % 3.4 L Mean Corpuscular Hemoglobin 29.6 Mean Corpuscular Hemoglobin Concent 32.7 Mean Corpuscular Volume 90.4 Mean Platelet Volume 12.7 H Monocytes # 0.1 L Monocytes % 3.2 Neutrophils # 4.1 Neutrophils % 92.7 H Nucleated Red Blood Cells # 0.0 Nucleated Red Blood Cells % 0.0 Percent Iron Saturation 36 Percent Reticulocyte Count 0.6 Platelet Count 13 #*L Potassium Level 3.3 L Red Blood Count 2.40 L Red Cell Distribution Width 18.1 H Sodium Level 133 L Total Iron Binding Capacity 72 L Vitamin B12 Level > 1000 H White Blood Count 4.4 #L Test 10/04/16 11:45 10/04/16 12:57 Activated Partial Thromboplast Time 45.3 H D-Dimer 2923.56 H D-Dimer Comment Fibrinogen 215.0 INR International Normalized Ratio 1.59 Plasma Fibrin Degradation Products <10 Platelet Count 13 *L Prothrombin Time 19.1 #H Prothrombin Time Ratio 1.5 Thrombin Time 16.1 Bedside Glucose 124 Medications Medications Current Medications Acetaminophen (Tylenol Liquid) 640 mg Q6H PRN GTB PAIN OR TEMP ABOVE 38C Last administered on 10/04/16 05:44; Admin Dose 640 MG; Start 09/06/16 at 22:30 Allopurinol (Zyloprim) 200 mg DAILY GTB Last administered on 10/04/16 10:45; Admin Dose 200 MG; Start 09/07/16 at 09:00 Ascorbic Acid (Vitamin C) 500 mg BID GTB Last administered on 10/04/16 10:45; Admin Dose 500 MG; Start 09/07/16 at 09:00 Calcitriol (Rocaltrol) 0.25 mcg DAILY GTB Last administered on 10/04/16 10:45; Admin Dose 0.25 MCG; Start 09/07/16 at 09:00 Chlorhexidine Gluconate (Peridex) 15 ml BID MM Last administered on 10/04/16 10 :44; Admin Dose 15 ML; Start 09/07/16 at 09:00 Famotidine (Pepcid) 40 mg DAILY GTB Last administered on 10/04/16 10:45; Admin Dose 40 MG; Start 09/07/16 at 09:00 Lansoprazole (Prevacid) 30 mg BID@,18 GTB Last administered on 10/04/16 05:44 ; Admin Dose 30 MG; Start 09/07/16 at 06:00 Levetiracetam (Keppra Liquid) 500 mg BID GTB Last administered on 10/04/16 10: 44; Admin Dose 500 MG; Start 09/07/16 at 09:00 Metoclopramide HCl (Reglan) 5 mg Q8H PRN GTB NAUSEA AND/OR VOMITING; Start 09/06 at 22:30 Sucralfate (Carafate Susp) 1 gm BID GTB Last administered on 10/04/16 10:56; Admin Dose 1 GM; Start 09/07/16 at 09:00 Ondansetron HCl (Zofran Inj) 4 mg Q6H PRN IV NAUSEA AND/OR VOMITING Last administered on 09/17/16 00:52; Admin Dose 4 MG; Start 09/06/16 at 22:30 Morphine Sulfate (morphine) 2 mg Q4H PRN IV PAIN LEVEL 7-10 Last administered on 09/16/16 20:19; Admin Dose 2 MG; Start 09/06/16 at 22:30 Metoclopramide HCl (Reglan) 5 mg Q6H PRN IV RESIDUALS > 100; Start 09/10/16 at 19:00 Clonidine (Catapres) 0.1 mg Q6H PRN GTB ELEVATED SYSTOLIC BP Last administered on 09/15/16 07:04; Admin Dose 0.1 MG; Start 09/13/16 at 23:00 Hydralazine HCl (Apresoline) 10 mg Q6H PRN IV ELEVATED SYSTOLIC BP Last administered on 09/15/16 02:08; Admin Dose 10 MG; Start 09/15/16 at 01:50 Collagenase (Santyl) 1 applic DAILY TOP Last administered on 10/04/16 09:00; Admin Dose 1 APPLIC; Start 09/18/16 at 09:00 Glycopyrrolate (Robinul) 1 mg Q8 GTB Last administered on 10/04/16 05:45; Admin Dose 1 MG; Start 09/19/16 at 09:30 Amikacin Sulfate AMIKACIN PER PHARMACY NOTE XX ; Start 09/24/16 at 14:00 Sodium Chloride/ Dextrose (Nacl/D10w) 1,019.25 ml @ 50 mls/hr [id number] IV Last administered on 10/03/16 12:27; Admin Dose 50 MLS/HR; Start 09/28/16 at 09:00 Miscellaneous Information 1 ea NOTE XX ; Start 09/28/16 at 09:00 Glucose (Glutose) 15 gm Q15M PRN PO DECREASED GLUCOSE; Start 09/28/16 at 09:00 Glucose (Glutose) 22.5 gm Q15M PRN PO DECREASED GLUCOSE; Start 09/28/16 at 09:00 Dextrose (D50w Syringe) 25 ml Q15M PRN IV DECREASED GLUCOSE Last administered on 09/29/16 18:18; Admin Dose 25 ML; Start 09/28/16 at 09:00 Dextrose (D50w Syringe) 50 ml Q15M PRN IV DECREASED GLUCOSE; Start 09/28/16 at 09:00 Glucagon (Glucagen) 1 mg Q15M PRN IM DECREASED GLUCOSE; Start 09/28/16 at 09:00 Glucose (Glutose) 15 gm Q15M PRN BUCCAL DECREASED GLUCOSE; Start 09/28/16 at 09: 00 Insulin Aspart (Novolog Insulin Pen) NOVOLOG *MILD* ALGORI... Q6 SC Last administered on 10/03/16 18:59; Admin Dose 1 UNIT; Start 09/29/16 at 00:00 IV Flush (NS 10 ml) 10 ml PRN PRN IV FLUSH LINE; Start 09/29/16 at 20:30 Epoetin Jeffry 6000 units 6,000 units MoWeFr@17 SC Last administered on 10/03/16 18:57; Admin Dose 6,000 UNITS; Start 10/01/16 at 17:00 Vancomycin HCl (Vancocin) 250 ml @ 125 mls/hr ONCE IVPB ; Start 10/04/16 at 15: 00; Stop 10/04/16 at 16:59 TONORMA MD Oct 04, 2016 14:33
--- NOTE | 2016-10-04 14:44 | RADRPT ---
PROCEDURE: XR Chest. CLINICAL INDICATION: Shortness of breath. TECHNIQUE: Single frontal view. COMPARISON: 09/29/2016. FINDINGS: The tracheostomy tube, left arm PICC line, and tunneled right internal jugular vein dialysis cathete r remain in satisfactory position. Pulmonary edema is slightly improved. There is atelectasis at th e right lung base and there are low lung volumes. The heart is enlarged. There are small bilateral pleural effusions. There is no pneumothorax. IMPRESSION: 1. Slightly improved pulmonary edema. 2. Atelectasis at the right lung base and low lung volumes. 3. Cardiomegaly. 4. Small bilateral pleural effusions. RPTAT: QQ .Yoan George MD, MD Date Time Electronically viewed and signed by .Yoan George MD, on 10/04/2016 14:43 .R/
[2016-10-04] MEDS ORDERED: VANCOMYCIN 1 GM in NS 250 ML IVPB SCH (15:00)
--- NOTE | 2016-10-04 15:31 | PN ---
DATE: 10/04/2016 SUBJECTIVE: This is pulmonary followup. The patient had a temperature spike of 101.1 around 4 a.m. this morning. Subsequently, the temperature has come down and the most recent one being 98.1. PHYSICAL EXAMINATION: VITAL SIGNS: Stable. Blood pressure is 95/77, pulse rate is 115, respirations 18, pulse oximetry 9 7% saturation. The patient's general condition is same. He is fully cognitive with minimal eye opening, but does n ot follow. His breathing appears unlabored with the ventilator support through tracheostomy. Trach eal secretions are clear and moderate. No bleeding is seen. HEART: Regular rhythm. CHEST: Breath sounds are heard bilaterally, diminished in both lower lung [place], no rales or rhonc hi. Otherwise upper lung [place] are clear. ABDOMEN: Soft, not tender. Tolerating gastrostomy tube feedings. Bowel sounds are present. EXTREMITIES: Show generalized edema. LABORATORY DATA: Show sodium 133, potassium 3.3, bicarbonate 21, BUN is 69, creatinine 2.06, glucos e 104. The hematology shows a WBC 4400, hemoglobin 7.1, hematocrit 21.7, platelets 13,000. IMPRESSION: 1. Possible sepsis, rule out pneumonia. 2. Chronic respiratory failure, ventilator dependent. 3. History of seizures. 4. Chronic encephalopathy. 5. History of developmental delay. 6. Pancytopenia. 7. Acute renal failure on dialysis. RECOMMENDATIONS: 1. Continue long-term ventilator support. 2. 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 3. Continue tube feedings. 4. Cultures have been taken. Chest x-ray has been ordered, reports are awaited. Vancomycin has be en added. Continue the same antibiotics per the infectious diseases [employer] consultant. Dictated By: VEENA STREETER MD, SR/NTS Conf#: [id number] DID#: [id number]
--- NOTE | 2016-10-04 16:08 | PN ---
Date/Time of Note Date/Time of Note DATE: 10/04/16 TIME: 16:07 Assessment/Plan VTE Prophylaxis VTE Prophylaxis Intervention: SCD's Lines/Catheters IV Catheter Type (from [facility] PICC Line Central line still needed: Yes Urinary Cath still in place: Yes Reason Cath still needed: urinary retention Assessment/Plan Assessment/Plan 1. Severe anemia 2 GI bleed. - Continue to monitor hemoglobin and hematocrit. - per Dr. Singh in gastroenterology consultation. - per Dr. Madyson sanchez in hematology consultation. 2. Hypovolemic shock, resolved. 3. Acute kidney failure on chronic kidney disease. Continue to monitor BUN and creatinine. - per Dr. Mk Purdy in nephrology consultation. Patient with worsening renal function. Started on Hemodialysis during this admission. 4. Pancytopenia. 5. Ventilator-dependent respiratory failure. 6. Possible healthcare-acquired pneumonia. - per Dr. Aragon in pulmonology consultation. Continue ventilator support, bronchodilators. Status post treatment. 7. Dysphagia with PEG. 8. History of seizure disorder. Continue patient on Keppra. 9. Diastolic dysfunction congestive heart failure with preserved ejection fraction of 60%. 10. S/p sepsis. Dr. Guy is following patient in infectious disease consultation. 11. Status post cerebrovascular accident, status post craniotomy. 12. Mental retardation. 13. Hypokalemia, potassium replaced. Continue Protonix for peptic ulcer disease prophylaxis. Further recommendations based on clinical course. Plan of care discussed with Dr. Mcelroy. Subjective 24 Hr Interval Summary Subjective hx not possible: pt non-verbal Constitutional: requiring IVF, requiring O2 Exam/Review of Systems Vital Signs Vitals Vital Signs Date Time Temp Pulse Resp B/P Pulse Ox O2 Delivery O2 Flow Rate FiO2 10/04/16 15:43 99 18 108/43 98 10/04/16 13:25 40 10/04/16 11:25 99.3 Intake and Output 10/03/16 10/03/16 10/04/16 15:00 23:00 07:00 Intake Total 450 ml 1050 ml Output Total 100 ml 200 ml Balance 350 ml 850 ml Exam Constitutional: frail Psych: nl mood/affect Eyes: nl sclera ENMT: nl external ears & nose Neck: non-tender Respiratory: diminished breath sounds Cardiovascular: nl pulses Gastrointestinal: non-tender, other, soft Musculoskeletal: muscle weakness Neurological: unresponsive Lymph: nontender Results Result Diagram: 10/04/16 1145 10/04/16 1140 Results 24 hrs Laboratory Tests Test 10/03/16 18:54 10/04/16 00:11 10/04/16 05:43 10/04/16 11:40 Bedside Glucose 153 157 151 Absolute Reticulocyte Count 0.015 L Anion Gap 16 Basophils # 0.0 Basophils % 0.0 Blood Urea Nitrogen 69 H Calcium Level 9.6 Carbon Dioxide Level 21 Chloride Level 99 Creatinine 2.06 H Eosinophils # 0.0 Eosinophils % 0.0 Ferritin 2730.0 H Folate 5.5 Glucose Level 104 HIV (1&2) Antibody NEGATIVE Hematocrit 21.7 L Hemoglobin 7.1 L Iron Level 26 L Lactate Dehydrogenase 148 L Lymphocytes # 0.2 L Lymphocytes % 3.4 L Mean Corpuscular Hemoglobin 29.6 Mean Corpuscular Hemoglobin Concent 32.7 Mean Corpuscular Volume 90.4 Mean Platelet Volume 12.7 H Monocytes # 0.1 L Monocytes % 3.2 Neutrophils # 4.1 Neutrophils % 92.7 H Nucleated Red Blood Cells # 0.0 Nucleated Red Blood Cells % 0.0 Percent Iron Saturation 36 Percent Reticulocyte Count 0.6 Platelet Count 13 #*L Potassium Level 3.3 L Red Blood Count 2.40 L Red Cell Distribution Width 18.1 H Sodium Level 133 L Total Iron Binding Capacity 72 L Vitamin B12 Level > 1000 H White Blood Count 4.4 #L Test 10/04/16 11:45 10/04/16 12:57 Activated Partial Thromboplast Time 45.3 H D-Dimer 2923.56 H D-Dimer Comment Fibrinogen 215.0 INR International Normalized Ratio 1.59 Plasma Fibrin Degradation Products <10 Platelet Count 13 *L Prothrombin Time 19.1 #H Prothrombin Time Ratio 1.5 Thrombin Time 16.1 Bedside Glucose 124 Medications Medications Current Medications Acetaminophen (Tylenol Liquid) 640 mg Q6H PRN GTB PAIN OR TEMP ABOVE 38C Last administered on 10/04/16 05:44; Admin Dose 640 MG; Start 09/06/16 at 22:30 Allopurinol (Zyloprim) 200 mg DAILY GTB Last administered on 10/04/16 10:45; Admin Dose 200 MG; Start 09/07/16 at 09:00 Ascorbic Acid (Vitamin C) 500 mg BID GTB Last administered on 10/04/16 10:45; Admin Dose 500 MG; Start 09/07/16 at 09:00 Calcitriol (Rocaltrol) 0.25 mcg DAILY GTB Last administered on 10/04/16 10:45; Admin Dose 0.25 MCG; Start 09/07/16 at 09:00 Chlorhexidine Gluconate (Peridex) 15 ml BID MM Last administered on 10/04/16 10 :44; Admin Dose 15 ML; Start 09/07/16 at 09:00 Famotidine (Pepcid) 40 mg DAILY GTB Last administered on 10/04/16 10:45; Admin Dose 40 MG; Start 09/07/16 at 09:00 Lansoprazole (Prevacid) 30 mg BID@ GTB Last administered on 10/04/16 05:44 ; Admin Dose 30 MG; Start 09/07/16 at 06:00 Levetiracetam (Keppra Liquid) 500 mg BID GTB Last administered on 10/04/16 10: 44; Admin Dose 500 MG; Start 09/07/16 at 09:00 Metoclopramide HCl (Reglan) 5 mg Q8H PRN GTB NAUSEA AND/OR VOMITING; Start 09/06 at 22:30 Sucralfate (Carafate Susp) 1 gm BID GTB Last administered on 10/04/16 10:56; Admin Dose 1 GM; Start 09/07/16 at 09:00 Ondansetron HCl (Zofran Inj) 4 mg Q6H PRN IV NAUSEA AND/OR VOMITING Last administered on 09/17/16 00:52; Admin Dose 4 MG; Start 09/06/16 at 22:30 Morphine Sulfate (morphine) 2 mg Q4H PRN IV PAIN LEVEL 7-10 Last administered on 09/16/16 20:19; Admin Dose 2 MG; Start 09/06/16 at 22:30 Metoclopramide HCl (Reglan) 5 mg Q6H PRN IV RESIDUALS > 100; Start 09/10/16 at 19:00 Clonidine (Catapres) 0.1 mg Q6H PRN GTB ELEVATED SYSTOLIC BP Last administered on 09/15/16 07:04; Admin Dose 0.1 MG; Start 09/13/16 at 23:00 Hydralazine HCl (Apresoline) 10 mg Q6H PRN IV ELEVATED SYSTOLIC BP Last administered on 09/15/16 02:08; Admin Dose 10 MG; Start 09/15/16 at 01:50 Collagenase (Santyl) 1 applic DAILY TOP Last administered on 10/04/16 09:00; Admin Dose 1 APPLIC; Start 09/18/16 at 09:00 Glycopyrrolate (Robinul) 1 mg Q8 GTB Last administered on 10/04/16 05:45; Admin Dose 1 MG; Start 09/19/16 at 09:30 Amikacin Sulfate AMIKACIN PER PHARMACY NOTE XX ; Start 09/24/16 at 14:00 Sodium Chloride/ Dextrose (Nacl/D10w) 1,019.25 ml @ 50 mls/hr [id number] IV Last administered on 10/03/16 12:27; Admin Dose 50 MLS/HR; Start 09/28/16 at 09:00 Miscellaneous Information 1 ea NOTE XX ; Start 09/28/16 at 09:00 Glucose (Glutose) 15 gm Q15M PRN PO DECREASED GLUCOSE; Start 09/28/16 at 09:00 Glucose (Glutose) 22.5 gm Q15M PRN PO DECREASED GLUCOSE; Start 09/28/16 at 09:00 Dextrose (D50w Syringe) 25 ml Q15M PRN IV DECREASED GLUCOSE Last administered on 09/29/16 18:18; Admin Dose 25 ML; Start 09/28/16 at 09:00 Dextrose (D50w Syringe) 50 ml Q15M PRN IV DECREASED GLUCOSE; Start 09/28/16 at 09:00 Glucagon (Glucagen) 1 mg Q15M PRN IM DECREASED GLUCOSE; Start 09/28/16 at 09:00 Glucose (Glutose) 15 gm Q15M PRN BUCCAL DECREASED GLUCOSE; Start 09/28/16 at 09: 00 Insulin Aspart (Novolog Insulin Pen) NOVOLOG *MILD* ALGORI... Q6 SC Last administered on 10/03/16 18:59; Admin Dose 1 UNIT; Start 09/29/16 at 00:00 IV Flush (NS 10 ml) 10 ml PRN PRN IV FLUSH LINE; Start 09/29/16 at 20:30 Epoetin Jeffry 6000 units 6,000 units MoWeFr@17 SC Last administered on 3/8/17at 18:57; Admin Dose 6,000 UNITS; Start 10/01/16 at 17:00 Vancomycin HCl (Vancocin) 250 ml @ 125 mls/hr ONCE IVPB ; Start 10/04/16 at 15: 00; Stop 10/04/16 at 16:59 KRISTOPHER SOTO Oct 04, 2016 16:08
[2016-10-04 16:23] LABS: WHITE BLOOD COUNT 6.2 10^3/ul (4.8-10.8)
[2016-10-04] MEDS ORDERED: POTASSIUM CHLORIDE 20 MEQ in SOD CHLORIDE 0.9% 100 ML IVPB ONE (16:30)
[2016-10-04] MEDS ORDERED: VANCOMYCIN 2 GM in SOD CHLORIDE 0.9% 500 ML IVPB SCH (20:00)
--- NOTE | 2016-10-04 21:50 | CONS ---
Date/Time of Note Date/Time of Note DATE: 10/04/16 TIME: 21:49 Assessment/Plan Assessment/Plan Additional Assessment/Plan 1. Acute kidney injury on possible chronic kidney disease unknown stage secondary to severe prerenal azotemia causing ischemic acute tubular necrosis in the setting of severe anemia.- continue to have Anuria with uremic symptoms and GI bleeding- started on HD during this admission 2. Severe anemia,s/p PRBC 3. Chronic respiratory failure, status post tracheostomy, on vent. 4. Pancytopenia. 5. History of a seizure disorder. 6. thrombocytopenia PLAN: Pt is on chronic HD now, midodrine prior to HD today will continue to follow up on patient Consultation Date/Type/Reason Admit Date/Time Sep 06, 2016 at 22:27 Initial Consult Date Aug Type of Consultation: NEPHROLOGY Referring Provider: FREDDY COELLO MD 24 HR Interval Summary Free Text/Dictation Plan for HD today, BP labile, will give midodrine prior to hD today Exam/Review of Systems Vital Signs Vitals Vital Signs Date Time Temp Pulse Resp B/P Pulse Ox O2 Delivery O2 Flow Rate FiO2 10/04/16 20:42 100 10/04/16 19:50 98.9 23 114/57 98 10/04/16 17:25 40 Intake and Output 10/03/16 10/03/16 10/04/16 15:00 23:00 07:00 Intake Total 450 ml 1050 ml Output Total 100 ml 200 ml Balance 350 ml 850 ml Results Result Diagram: 10/04/16 1145 10/04/16 1140 Results 24 hrs Laboratory Tests Test 10/04/16 00:11 10/04/16 05:43 10/04/16 11:40 10/04/16 11:45 Bedside Glucose 157 151 Absolute Reticulocyte Count 0.015 L Anion Gap 16 Basophils # 0.0 Basophils % 0.0 Blood Urea Nitrogen 69 H Calcium Level 9.6 Carbon Dioxide Level 21 Chloride Level 99 Creatinine 2.06 H Eosinophils # 0.0 Eosinophils % 0.0 Ferritin 2730.0 H Folate 5.5 Glucose Level 104 HIV (1&2) Antibody NEGATIVE Hematocrit 21.7 L Hemoglobin 7.1 L Iron Level 26 L Lactate Dehydrogenase 148 L Lymphocytes # 0.2 L Lymphocytes % 3.4 L Mean Corpuscular Hemoglobin 29.6 Mean Corpuscular Hemoglobin Concent 32.7 Mean Corpuscular Volume 90.4 Mean Platelet Volume 12.7 H Monocytes # 0.1 L Monocytes % 3.2 Neutrophils # 4.1 Neutrophils % 92.7 H Nucleated Red Blood Cells # 0.0 Nucleated Red Blood Cells % 0.0 Percent Iron Saturation 36 Percent Reticulocyte Count 0.6 Platelet Count 13 #*L 13 *L Potassium Level 3.3 L Red Blood Count 2.40 L Red Cell Distribution Width 18.1 H Sodium Level 133 L Total Iron Binding Capacity 72 L Vitamin B12 Level > 1000 H White Blood Count 4.4 #L Activated Partial Thromboplast Time 45.3 H D-Dimer 2923.56 H D-Dimer Comment Fibrinogen 215.0 INR International Normalized Ratio 1.59 Plasma Fibrin Degradation Products <10 Prothrombin Time 19.1 #H Prothrombin Time Ratio 1.5 Thrombin Time 16.1 Test 10/04/16 12:57 10/04/16 18:15 Bedside Glucose 124 178 Medications Medications Current Medications Acetaminophen (Tylenol Liquid) 640 mg Q6H PRN GTB PAIN OR TEMP ABOVE 38C Last administered on 10/04/16 05:44; Admin Dose 640 MG; Start 09/06/16 at 22:30 Allopurinol (Zyloprim) 200 mg DAILY GTB Last administered on 10/04/16 10:45; Admin Dose 200 MG; Start 09/07/16 at 09:00 Ascorbic Acid (Vitamin C) 500 mg BID GTB Last administered on 10/04/16 20:13; Admin Dose 500 MG; Start 09/07/16 at 09:00 Calcitriol (Rocaltrol) 0.25 mcg DAILY GTB Last administered on 10/04/16 10:45; Admin Dose 0.25 MCG; Start 09/07/16 at 09:00 Chlorhexidine Gluconate (Peridex) 15 ml BID MM Last administered on 10/04/16 20 :13; Admin Dose 15 ML; Start 09/07/16 at 09:00 Famotidine (Pepcid) 40 mg DAILY GTB Last administered on 10/04/16 10:45; Admin Dose 40 MG; Start 09/07/16 at 09:00 Lansoprazole (Prevacid) 30 mg BID@18 GTB Last administered on 10/04/16 18:23 ; Admin Dose 30 MG; Start 09/07/16 at 06:00 Levetiracetam (Keppra Liquid) 500 mg BID GTB Last administered on 10/04/16 20: 13; Admin Dose 500 MG; Start 09/07/16 at 09:00 Metoclopramide HCl (Reglan) 5 mg Q8H PRN GTB NAUSEA AND/OR VOMITING; Start 09/06 at 22:30 Sucralfate (Carafate Susp) 1 gm BID GTB Last administered on 10/04/16 20:13; Admin Dose 1 GM; Start 09/07/16 at 09:00 Ondansetron HCl (Zofran Inj) 4 mg Q6H PRN IV NAUSEA AND/OR VOMITING Last administered on 09/17/16 00:52; Admin Dose 4 MG; Start 09/06/16 at 22:30 Morphine Sulfate (morphine) 2 mg Q4H PRN IV PAIN LEVEL 7-10 Last administered on 09/16/16 20:19; Admin Dose 2 MG; Start 09/06/16 at 22:30 Metoclopramide HCl (Reglan) 5 mg Q6H PRN IV RESIDUALS > 100; Start 09/10/16 at 19:00 Clonidine (Catapres) 0.1 mg Q6H PRN GTB ELEVATED SYSTOLIC BP Last administered on 09/15/16 07:04; Admin Dose 0.1 MG; Start 09/13/16 at 23:00 Hydralazine HCl (Apresoline) 10 mg Q6H PRN IV ELEVATED SYSTOLIC BP Last administered on 09/15/16 02:08; Admin Dose 10 MG; Start 09/15/16 at 01:50 Collagenase (Santyl) 1 applic DAILY TOP Last administered on 10/04/16 09:00; Admin Dose 1 APPLIC; Start 09/18/16 at 09:00 Glycopyrrolate (Robinul) 1 mg Q8 GTB Last administered on 10/04/16 20:14; Admin Dose 1 MG; Start 09/19/16 at 09:30 Amikacin Sulfate AMIKACIN PER PHARMACY NOTE XX ; Start 09/24/16 at 14:00 Sodium Chloride/ Dextrose (Nacl/D10w) 1,019.25 ml @ 50 mls/hr [id number] IV Last administered on 10/04/16 08:00; Admin Dose 50 MLS/HR; Start 09/28/16 at 09:00 Miscellaneous Information 1 ea NOTE XX ; Start 09/28/16 at 09:00 Glucose (Glutose) 15 gm Q15M PRN PO DECREASED GLUCOSE; Start 09/28/16 at 09:00 Glucose (Glutose) 22.5 gm Q15M PRN PO DECREASED GLUCOSE; Start 09/28/16 at 09:00 Dextrose (D50w Syringe) 25 ml Q15M PRN IV DECREASED GLUCOSE Last administered on 09/29/16 18:18; Admin Dose 25 ML; Start 09/28/16 at 09:00 Dextrose (D50w Syringe) 50 ml Q15M PRN IV DECREASED GLUCOSE; Start 09/28/16 at 09:00 Glucagon (Glucagen) 1 mg Q15M PRN IM DECREASED GLUCOSE; Start 09/28/16 at 09:00 Glucose (Glutose) 15 gm Q15M PRN BUCCAL DECREASED GLUCOSE; Start 09/28/16 at 09: 00 Insulin Aspart (Novolog Insulin Pen) NOVOLOG *MILD* ALGORI... Q6 SC Last administered on 10/04/16 18:28; Admin Dose 1 UNIT; Start 09/29/16 at 00:00 IV Flush (NS 10 ml) 10 ml PRN PRN IV FLUSH LINE; Start 09/29/16 at 20:30 Epoetin Jeffry 6000 units 6,000 units MoWeFr@17 SC Last administered on 10/03/16 18:57; Admin Dose 6,000 UNITS; Start 10/01/16 at 17:00 Vancomycin HCl/ Sodium Chloride (Vancocin/NS) 500 ml @ 125 mls/hr ONCE IVPB ; Start 10/04/16 at 20:00; Stop 10/05/16 at 03:00 KENIA TURCIOS MD Oct 04, 2016 21:50
[2016-10-04] MEDS: AMIKACIN 400 MG in SOD CHLORIDE 0.9% 100 ML IVPB SCH (21:53)
[2016-10-05] VITALS (25 sets, daily range): BP systolic 82–118; BP diastolic 42–58; PULSE 100–108; RESP 14–22
[2016-10-05] MEDS: IPRATROPIUM (HFA) 12.9 GM INHALER INH SCH ×4 (01:24→20:21)
[2016-10-05] MEDS: LEVALBUTEROL (HFA) 15 GM INHALER INH SCH ×4 (01:24→20:21)
[2016-10-05] MEDS: SODIUM CHLORIDE 23.4% 77 MEQ in DEXTROSE 10% 1,000 ML IV SCH (02:46)
[2016-10-05] MEDS: GLYCOPYRROLATE 1 MG TAB GTB SCH ×3 (05:16→22:10)
[2016-10-05] MEDS: LANSOPRAZOLE 30 MG CAP GTB SCH ×2 (05:16→18:59)
[2016-10-05] MEDS: INSULIN ASPART [NOVOLOG] 3 ML PEN SC SCH ×3 (05:16→19:01)
[2016-10-05] MEDS: SEVELAMER CARBONATE 2.4 GM PKT GTB SCH ×3 (09:42→18:59)
[2016-10-05] MEDS: FAMOTIDINE 20 MG TAB GTB SCH (09:43)
[2016-10-05] MEDS: ASCORBIC ACID 500 MG TAB GTB SCH ×2 (09:43→22:09)
[2016-10-05] MEDS: ALLOPURINOL 100 MG TAB GTB SCH (09:43)
[2016-10-05] MEDS: CHLORHEXIDINE GLUCONATE 15 ML UD CUP MM SCH ×2 (09:43→22:09)
[2016-10-05] MEDS: CALCITRIOL 0.25 MCG CAP GTB SCH (09:43)
[2016-10-05] MEDS: SUCRALFATE (100 MG/ML) 10ML CUP GTB SCH ×2 (09:43→22:09)
[2016-10-05] MEDS: COLLAGENASE 30 GM TUBE TOP SCH (09:44)
[2016-10-05] MEDS: LEVETIRACETAM (100 MG/ML) 5ML CUP GTB SCH ×2 (09:50→22:09)
[2016-10-05 10:41] LABS: ADD SCAN DIFF NO
[2016-10-05 10:46] LABS: ABNORMAL IP MESSAGE 1; HEMATOCRIT 26.6 % (42.0-52.0); HEMOGLOBIN 8.7 g/dl (14.0-18.0); MEAN CORPUSCULAR HEMOGLOBIN 29.6 pg (29.0-33.0); MEAN CORPUSCULAR HGB CONC 32.7 g/dl (32.0-37.0); MEAN CORPUSCULAR VOLUME 90.5 fl (82.0-101.0); MEAN PLATELET VOLUME 11.6 fl (7.4-10.4); RED BLOOD COUNT 2.94 10^6/ul (4.70-6.10); RED CELL DISTRIBUTION WIDTH 17.9 % (11.5-14.5); WHITE BLOOD COUNT 3.9 10^3/ul (4.8-10.8)
[2016-10-05 10:56] LABS: PLATELET COUNT 9 10^3/UL (140-415)
[2016-10-05 10:58] LABS: POTASSIUM 3.7 mmol/L (3.5-5.1)
[2016-10-05 11:00] LABS: CREATININE 1.46 mg/dl (0.61-1.24)
--- NOTE | 2016-10-05 12:17 | CONS ---
Date/Time of Note Date/Time of Note DATE: 10/05/16 TIME: 12:16 Assessment/Plan Assessment/Plan Additional Assessment/Plan 1. Acute kidney injury on possible chronic kidney disease unknown stage secondary to severe prerenal azotemia causing ischemic acute tubular necrosis in the setting of severe anemia.- continue to have Anuria with uremic symptoms and GI bleeding- started on HD during this admission 2. Severe anemia,s/p PRBC 3. Chronic respiratory failure, status post tracheostomy, on vent. 4. Pancytopenia. 5. History of a seizure disorder. 6. thrombocytopenia PLAN: Pt is on chronic HD now, no HD today,HD ordered for tomorrow on Saturday will continue to follow up on patient Consultation Date/Type/Reason Admit Date/Time Sep 06, 2016 at 22:27 Initial Consult Date Aug Type of Consultation: NEPHROLOGY Referring Provider: FREDDY COELLO MD 24 HR Interval Summary Free Text/Dictation s/p HD yesterday, no acute events, today AM BP 102/51 Exam/Review of Systems Vital Signs Vitals Vital Signs Date Time Temp Pulse Resp B/P Pulse Ox O2 Delivery O2 Flow Rate FiO2 10/05/16 11:12 98.6 93 18 102/51 94 10/05/16 09:20 40 Intake and Output 10/04/16 10/04/16 10/05/16 15:00 23:00 07:00 Intake Total 1400 ml 780 ml Output Total 2650 ml 100 ml Balance -1250 ml 680 ml Exam GENERAL: chronically ill-appearing, middle-aged man who is lying comfortably in bed. HEENT: Head atraumatic, normocephalic. Sclerae anicteric. Buccal mucosa dry. NECK: Supple. Tracheostomy present. CHEST: Rise symmetrical. Breath sounds diminished. HEART: S1, S2. ABDOMEN: Soft, bowel tones present. EXTREMITIES: Without cyanosis. Contractured. + permacath Right IJ Results Result Diagram: 10/05/16 1150 10/05/16 1026 Results 24 hrs Laboratory Tests Test 10/04/16 12:57 10/04/16 18:15 10/04/16 22:52 10/05/16 05:15 Bedside Glucose 124 178 136 103 Test 10/05/16 10:26 10/05/16 11:50 Anion Gap 14 Blood Urea Nitrogen 56 H Calcium Level 9.0 Carbon Dioxide Level 23 Chloride Level 104 Creatinine 1.46 H Glucose Level 300 #H Potassium Level 3.7 Sodium Level 137 Eosinophils # Eosinophils % Hematocrit 26.6 #L Hemoglobin 8.7 #L Mean Corpuscular Hemoglobin 29.6 Mean Corpuscular Hemoglobin Concent 32.7 Mean Corpuscular Volume 90.5 Mean Platelet Volume 11.6 H Neutrophils # Neutrophils % Platelet Count 9 #*L Red Blood Count 2.94 #L Red Cell Distribution Width 17.9 H White Blood Count 3.9 L Medications Medications Current Medications Acetaminophen (Tylenol Liquid) 640 mg Q6H PRN GTB PAIN OR TEMP ABOVE 38C Last administered on 10/04/16 05:44; Admin Dose 640 MG; Start 09/06/16 at 22:30 Allopurinol (Zyloprim) 200 mg DAILY GTB Last administered on 10/05/16 09:43; Admin Dose 200 MG; Start 09/07/16 at 09:00 Ascorbic Acid (Vitamin C) 500 mg BID GTB Last administered on 10/05/16 09:43; Admin Dose 500 MG; Start 09/07/16 at 09:00 Calcitriol (Rocaltrol) 0.25 mcg DAILY GTB Last administered on 10/05/16 09:43 ; Admin Dose 0.25 MCG; Start 09/07/16 at 09:00 Chlorhexidine Gluconate (Peridex) 15 ml BID MM Last administered on 10/05/16 09:43; Admin Dose 15 ML; Start 09/07/16 at 09:00 Famotidine (Pepcid) 40 mg DAILY GTB Last administered on 10/05/16 09:43; Admin Dose 40 MG; Start 09/07/16 at 09:00 Lansoprazole (Prevacid) 30 mg BID@,18 GTB Last administered on 10/05/16 05: 16; Admin Dose 30 MG; Start 09/07/16 at 06:00 Levetiracetam (Keppra Liquid) 500 mg BID GTB Last administered on 10/05/16 09: 50; Admin Dose 500 MG; Start 09/07/16 at 09:00 Metoclopramide HCl (Reglan) 5 mg Q8H PRN GTB NAUSEA AND/OR VOMITING; Start 09/06 at 22:30 Sucralfate (Carafate Susp) 1 gm BID GTB Last administered on 10/05/16 09:43; Admin Dose 1 GM; Start 09/07/16 at 09:00 Ondansetron HCl (Zofran Inj) 4 mg Q6H PRN IV NAUSEA AND/OR VOMITING Last administered on 09/17/16 00:52; Admin Dose 4 MG; Start 09/06/16 at 22:30 Morphine Sulfate (morphine) 2 mg Q4H PRN IV PAIN LEVEL 7-10 Last administered on 09/16/16 20:19; Admin Dose 2 MG; Start 09/06/16 at 22:30 Metoclopramide HCl (Reglan) 5 mg Q6H PRN IV RESIDUALS > 100; Start 09/10/16 at 19:00 Clonidine (Catapres) 0.1 mg Q6H PRN GTB ELEVATED SYSTOLIC BP Last administered on 09/15/16 07:04; Admin Dose 0.1 MG; Start 09/13/16 at 23:00 Hydralazine HCl (Apresoline) 10 mg Q6H PRN IV ELEVATED SYSTOLIC BP Last administered on 09/15/16 02:08; Admin Dose 10 MG; Start 09/15/16 at 01:50 Collagenase (Santyl) 1 applic DAILY TOP Last administered on 10/05/16 09:44; Admin Dose 1 APPLIC; Start 09/18/16 at 09:00 Glycopyrrolate (Robinul) 1 mg Q8 GTB Last administered on 10/05/16 05:16; Admin Dose 1 MG; Start 09/19/16 at 09:30 Amikacin Sulfate AMIKACIN PER PHARMACY NOTE XX ; Start 09/24/16 at 14:00 Sodium Chloride/ Dextrose (Nacl/D10w) 1,019.25 ml @ 50 mls/hr [id number] IV Last administered on 10/04/16 08:00; Admin Dose 50 MLS/HR; Start 09/28/16 at 09:00 Miscellaneous Information 1 ea NOTE XX ; Start 09/28/16 at 09:00 Glucose (Glutose) 15 gm Q15M PRN PO DECREASED GLUCOSE; Start 09/28/16 at 09:00 Glucose (Glutose) 22.5 gm Q15M PRN PO DECREASED GLUCOSE; Start 09/28/16 at 09:00 Dextrose (D50w Syringe) 25 ml Q15M PRN IV DECREASED GLUCOSE Last administered on 09/29/16 18:18; Admin Dose 25 ML; Start 09/28/16 at 09:00 Dextrose (D50w Syringe) 50 ml Q15M PRN IV DECREASED GLUCOSE; Start 09/28/16 at 09:00 Glucagon (Glucagen) 1 mg Q15M PRN IM DECREASED GLUCOSE; Start 09/28/16 at 09:00 Glucose (Glutose) 15 gm Q15M PRN BUCCAL DECREASED GLUCOSE; Start 09/28/16 at 09: 00 Insulin Aspart (Novolog Insulin Pen) NOVOLOG *MILD* ALGORI... Q6 SC Last administered on 10/04/16 18:28; Admin Dose 1 UNIT; Start 09/29/16 at 00:00 IV Flush (NS 10 ml) 10 ml PRN PRN IV FLUSH LINE; Start 09/29/16 at 20:30 Epoetin Jeffry (Epogen (Esrd)) 6,000 units [id number]@17 SC Last administered on 18:57; Admin Dose 6,000 UNITS; Start 10/01/16 at 17:00 Miscellaneous Information (*Rx Drug Level Order Reminder*) 1 ONCE ONCE XX ; Start 10/06/16 at 05:00; Stop 10/06/16 at 05:01 KENIA TURCIOS MD Oct 05, 2016 12:17
--- NOTE | 2016-10-05 12:43 | CONS ---
Date/Time of Note Date/Time of Note DATE: 10/05/16 TIME: 12:41 Assessment/Plan Assessment/Plan Chief Complaint/Hosp Course SUBJECTIVE: afebrile, looks comfortable INDWELLINGS: RSC permacath, trach, PEG, LUE PICC 09/29/16, Brar Abx: Amikacin, Vanco PHYSICAL EXAMINATION: GENERAL: This is a well-developed, fragile, chronically ill-appearing, middle- aged man who is lying comfortably in bed. HEENT: Head atraumatic, normocephalic. Sclerae anicteric. Buccal mucosa dry. NECK: Supple. Tracheostomy present. CHEST: Rise symmetrical. Breath sounds diminished. HEART: S1, S2. ABDOMEN: Soft, bowel tones present. EXTREMITIES: Without cyanosis. Contractured. ASSESSMENT: 1. Sepsis with GNR bacteremia. 2. Multiple decubitus with wound culture growing multi-drug resistant organisms ==> on Amikacin. 3. Acute on chronic kidney disease, hemodialysis dependent. 4. Encephalopathy. 5. Seizure disorder. 6. ALLERGIC TO ZITHROMAX, ZOSYN, AND ERYTHROMYCIN. PLAN: Clinically unchanged, bld cx + GNR, continue abx, f/u final cx's, consider dc PICC DW staff Problems: Consultation Date/Type/Reason Admit Date/Time Sep 06, 2016 at 22:27 Initial Consult Date 09/07/16 Type of Consultation: id Referring Provider: FREDDY COELLO MD Exam/Review of Systems Vital Signs Vitals Vital Signs Date Time Temp Pulse Resp B/P Pulse Ox O2 Delivery O2 Flow Rate FiO2 10/05/16 11:30 105 20 97 40 10/05/16 11:12 98.6 102/51 Intake and Output 10/04/16 10/04/16 10/05/16 15:00 23:00 07:00 Intake Total 1400 ml 780 ml Output Total 2650 ml 100 ml Balance -1250 ml 680 ml Results Result Diagram: 10/05/16 1150 10/05/16 1026 Results 24 hrs Laboratory Tests Test 10/04/16 12:57 10/04/16 18:15 10/04/16 22:52 10/05/16 05:15 Bedside Glucose 124 178 136 103 Test 10/05/16 10:26 10/05/16 11:50 Anion Gap 14 Blood Urea Nitrogen 56 H Calcium Level 9.0 Carbon Dioxide Level 23 Chloride Level 104 Creatinine 1.46 H Glucose Level 300 #H Potassium Level 3.7 Sodium Level 137 Eosinophils # Eosinophils % Hematocrit 26.6 #L Hemoglobin 8.7 #L Mean Corpuscular Hemoglobin 29.6 Mean Corpuscular Hemoglobin Concent 32.7 Mean Corpuscular Volume 90.5 Mean Platelet Volume 11.6 H Neutrophils # Neutrophils % Platelet Count 9 #*L Red Blood Count 2.94 #L Red Cell Distribution Width 17.9 H White Blood Count 3.9 L Medications Medications Current Medications Acetaminophen (Tylenol Liquid) 640 mg Q6H PRN GTB PAIN OR TEMP ABOVE 38C Last administered on 10/04/16 05:44; Admin Dose 640 MG; Start 09/06/16 at 22:30 Allopurinol (Zyloprim) 200 mg DAILY GTB Last administered on 10/05/16 09:43; Admin Dose 200 MG; Start 09/07/16 at 09:00 Ascorbic Acid (Vitamin C) 500 mg BID GTB Last administered on 10/05/16 09:43; Admin Dose 500 MG; Start 09/07/16 at 09:00 Calcitriol (Rocaltrol) 0.25 mcg DAILY GTB Last administered on 10/05/16 09:43 ; Admin Dose 0.25 MCG; Start 09/07/16 at 09:00 Chlorhexidine Gluconate (Peridex) 15 ml BID MM Last administered on 10/05/16 09:43; Admin Dose 15 ML; Start 09/07/16 at 09:00 Famotidine (Pepcid) 40 mg DAILY GTB Last administered on 10/05/16 09:43; Admin Dose 40 MG; Start 09/07/16 at 09:00 Lansoprazole (Prevacid) 30 mg BID@,18 GTB Last administered on 10/05/16 05: 16; Admin Dose 30 MG; Start 09/07/16 at 06:00 Levetiracetam (Keppra Liquid) 500 mg BID GTB Last administered on 10/05/16 09: 50; Admin Dose 500 MG; Start 09/07/16 at 09:00 Metoclopramide HCl (Reglan) 5 mg Q8H PRN GTB NAUSEA AND/OR VOMITING; Start 09/06 at 22:30 Sucralfate (Carafate Susp) 1 gm BID GTB Last administered on 10/05/16 09:43; Admin Dose 1 GM; Start 09/07/16 at 09:00 Ondansetron HCl (Zofran Inj) 4 mg Q6H PRN IV NAUSEA AND/OR VOMITING Last administered on 09/17/16 00:52; Admin Dose 4 MG; Start 09/06/16 at 22:30 Morphine Sulfate (morphine) 2 mg Q4H PRN IV PAIN LEVEL 7-10 Last administered on 09/16/16 20:19; Admin Dose 2 MG; Start 09/06/16 at 22:30 Metoclopramide HCl (Reglan) 5 mg Q6H PRN IV RESIDUALS > 100; Start 09/10/16 at 19:00 Clonidine (Catapres) 0.1 mg Q6H PRN GTB ELEVATED SYSTOLIC BP Last administered on 09/15/16 07:04; Admin Dose 0.1 MG; Start 09/13/16 at 23:00 Hydralazine HCl (Apresoline) 10 mg Q6H PRN IV ELEVATED SYSTOLIC BP Last administered on 09/15/16 02:08; Admin Dose 10 MG; Start 09/15/16 at 01:50 Collagenase (Santyl) 1 applic DAILY TOP Last administered on 10/05/16 09:44; Admin Dose 1 APPLIC; Start 09/18/16 at 09:00 Glycopyrrolate (Robinul) 1 mg Q8 GTB Last administered on 10/05/16 05:16; Admin Dose 1 MG; Start 09/19/16 at 09:30 Amikacin Sulfate AMIKACIN PER PHARMACY NOTE XX ; Start 09/24/16 at 14:00 Sodium Chloride/ Dextrose (Nacl/D10w) 1,019.25 ml @ 50 mls/hr [id number] IV Last administered on 10/04/16 08:00; Admin Dose 50 MLS/HR; Start 09/28/16 at 09:00 Miscellaneous Information 1 ea NOTE XX ; Start 09/28/16 at 09:00 Glucose (Glutose) 15 gm Q15M PRN PO DECREASED GLUCOSE; Start 09/28/16 at 09:00 Glucose (Glutose) 22.5 gm Q15M PRN PO DECREASED GLUCOSE; Start 09/28/16 at 09:00 Dextrose (D50w Syringe) 25 ml Q15M PRN IV DECREASED GLUCOSE Last administered on 09/29/16 18:18; Admin Dose 25 ML; Start 09/28/16 at 09:00 Dextrose (D50w Syringe) 50 ml Q15M PRN IV DECREASED GLUCOSE; Start 09/28/16 at 09:00 Glucagon (Glucagen) 1 mg Q15M PRN IM DECREASED GLUCOSE; Start 09/28/16 at 09:00 Glucose (Glutose) 15 gm Q15M PRN BUCCAL DECREASED GLUCOSE; Start 09/28/16 at 09: 00 Insulin Aspart (Novolog Insulin Pen) NOVOLOG *MILD* ALGORI... Q6 SC Last administered on 10/04/16 18:28; Admin Dose 1 UNIT; Start 09/29/16 at 00:00 IV Flush (NS 10 ml) 10 ml PRN PRN IV FLUSH LINE; Start 09/29/16 at 20:30 Epoetin Jeffry (Epogen (Esrd)) 6,000 units MoWeFr@17 SC Last administered on 18:57; Admin Dose 6,000 UNITS; Start 10/01/16 at 17:00 Miscellaneous Information (*Rx Drug Level Order Reminder*) 1 ONCE ONCE XX ; Start 10/06/16 at 05:00; Stop 10/06/16 at 05:01 ARUN DIANA NP Oct 05, 2016 12:43
[2016-10-05 12:56] LABS: BASOPHIL # 0.1 10^3/ul (0.0-0.1); LYMPHOCYTES # 0.1 10^3/ul (0.8-2.9); NEUTROPHIL # 3.2 10^3/ul (1.6-7.5); PLATELET ESTIMATE PLT APPEAR DECREASED
[2016-10-05 15:18] LABS: HEPARIN INDUCED PLATELET AB POSITIVE (NEGATIVE)
--- NOTE | 2016-10-05 15:51 | CONS ---
Date/Time of Note Date/Time of Note DATE: 10/05/16 TIME: 15:45 Assessment/Plan Assessment/Plan Chief Complaint/Hosp Course The patient is a 56 year old male with mental retardation, ventilator dependent respiratory failure, dysphagia with PEG, history of seizure disorder on Keppra, diastolic dysfunction congestive heart failure with preserved ejection fraction of 60%, status post cerebrovascular accident, status post craniotomy, acute on chronic kidney failure now on dialysis, with GI bleed with Dr. Singh following , hypovolemic and septic shock with multiple decubitus with wound culture growing multi-drug resistant organisms on Amikacin. Hematology was consulted for anemia and thrombocytopenia. # Thrombocytopenia, with platelets of 8 on admission, unclear platelet count at baseline. Likely secondary to sepsis, possibly DIC. Keppra can sometimes cause thrombocytopenia although again unclear baseline platelet count. No evidence of bleeding. - Likely due to sepsis particularly in the setting of recent fever, and now with GNR bacteremia. DIC panel may suggest component of DIC with prolongs coags and elevated D dimer with rare schistocytes on smear though fibrin split products not elevated. HIV and Hep panel negative. Continue to monitor platelet count, especially with the addition of vancomycin which can often cause thrombocytopenia. - Peripheral smear reviewed by pathology and confirms decreased platelet count, no microangiopathic changes, rare schistocytes, occasional metamyelocytes, mild bandemia, and no blasts - Abdominal US was technically limited study due to patient's inability to cooperate demonstrating mild hepatomegaly with a slightly coarsened echotexture which may indicate steatosis/hepatic cellular disease. - Low suspicion for HIT but patient was given 1 dose heparin on 09/15 and two doses of lovenox 09/07, 09/08, HIT panel sent and is pending - s/p 2 units pRBCs yesterday for Hgb 7.1 and 1 unit platelets for plt 13, will receive another 1 unit platelets for platelet count of 9 # Normocytic anemia, likely multifactorial due to GI bleed, chronic kidney disease, likely chronic inflammation - Iron panel suggests anemia of chronic inflammation, pending ferritin; B12/ folate WNL, LDH not elevated, retic count inappropriately low - Continue epo Problems: Consultation Date/Type/Reason Admit Date/Time Sep 06, 2016 at 22:27 Initial Consult Date 10/03/16 Type of Consultation: Hematology/Oncology Referring Provider: FREDDY COELLO MD 24 HR Interval Summary Free Text/Dictation Patient now with GNR bacteremia. No other significant changes. No bleeding. Exam/Review of Systems Vital Signs Vitals Vital Signs Date Time Temp Pulse Resp B/P Pulse Ox O2 Delivery O2 Flow Rate FiO2 10/05/16 14:52 98.6 109 18 109/46 97 10/05/16 13:40 40 Intake and Output 10/04/16 10/04/16 10/05/16 15:00 23:00 07:00 Intake Total 1400 ml 780 ml Output Total 2650 ml 100 ml Balance -1250 ml 680 ml Exam GENERAL: chronically ill-appearing, middle-aged man who is lying comfortably in bed. HEENT: Head atraumatic, normocephalic. Sclerae anicteric. NECK: Supple. Tracheostomy present, on vent CHEST: Clear to auscultation HEART: RRR ABDOMEN: Soft, bowel tones present, nontender EXTREMITIES: Without cyanosis. Contractured. Results Result Diagram: 10/05/16 1150 10/05/16 1026 Results 24 hrs Laboratory Tests Test 10/04/16 18:15 10/04/16 22:52 10/05/16 05:15 10/05/16 10:26 Bedside Glucose 178 136 103 Anion Gap 14 Blood Urea Nitrogen 56 H Calcium Level 9.0 Carbon Dioxide Level 23 Chloride Level 104 Creatinine 1.46 H Glucose Level 300 #H Potassium Level 3.7 Sodium Level 137 Test 10/05/16 11:50 10/05/16 13:30 Band Neutrophils % 9.0 H Basophils # 0.1 Basophils % 2.0 Differential Comment MANUAL DIFF Eosinophils # 0.0 Eosinophils % 1.0 Hematocrit 26.6 #L Hemoglobin 8.7 #L Lymphocytes # 0.1 L Lymphocytes % 2.0 L Mean Corpuscular Hemoglobin 29.6 Mean Corpuscular Hemoglobin Concent 32.7 Mean Corpuscular Volume 90.5 Mean Platelet Volume 11.6 H Metamyelocytes # 0.1 Metamyelocytes % 3.0 H Neutrophils # 3.2 Neutrophils % 83.0 H Platelet Count 9 #*L Platelet Estimate PLT APPEAR DECREASED Red Blood Count 2.94 #L Red Cell Distribution Width 17.9 H White Blood Count 3.9 L Bedside Glucose 125 Medications Medications Current Medications Acetaminophen (Tylenol Liquid) 640 mg Q6H PRN GTB PAIN OR TEMP ABOVE 38C Last administered on 10/04/16 05:44; Admin Dose 640 MG; Start 09/06/16 at 22:30 Allopurinol (Zyloprim) 200 mg DAILY GTB Last administered on 10/05/16 09:43; Admin Dose 200 MG; Start 09/07/16 at 09:00 Ascorbic Acid (Vitamin C) 500 mg BID GTB Last administered on 10/05/16 09:43; Admin Dose 500 MG; Start 09/07/16 at 09:00 Calcitriol (Rocaltrol) 0.25 mcg DAILY GTB Last administered on 10/05/16 09:43 ; Admin Dose 0.25 MCG; Start 09/07/16 at 09:00 Chlorhexidine Gluconate (Peridex) 15 ml BID MM Last administered on 10/05/16 09:43; Admin Dose 15 ML; Start 09/07/16 at 09:00 Famotidine (Pepcid) 40 mg DAILY GTB Last administered on 10/05/16 09:43; Admin Dose 40 MG; Start 09/07/16 at 09:00 Lansoprazole (Prevacid) 30 mg BID@,18 GTB Last administered on 10/05/16 05: 16; Admin Dose 30 MG; Start 09/07/16 at 06:00 Levetiracetam (Keppra Liquid) 500 mg BID GTB Last administered on 10/05/16 09: 50; Admin Dose 500 MG; Start 09/07/16 at 09:00 Metoclopramide HCl (Reglan) 5 mg Q8H PRN GTB NAUSEA AND/OR VOMITING; Start 09/06 at 22:30 Sucralfate (Carafate Susp) 1 gm BID GTB Last administered on 10/05/16 09:43; Admin Dose 1 GM; Start 09/07/16 at 09:00 Ondansetron HCl (Zofran Inj) 4 mg Q6H PRN IV NAUSEA AND/OR VOMITING Last administered on 09/17/16 00:52; Admin Dose 4 MG; Start 09/06/16 at 22:30 Morphine Sulfate (morphine) 2 mg Q4H PRN IV PAIN LEVEL 7-10 Last administered on 09/16/16 20:19; Admin Dose 2 MG; Start 09/06/16 at 22:30 Metoclopramide HCl (Reglan) 5 mg Q6H PRN IV RESIDUALS > 100; Start 09/10/16 at 19:00 Clonidine (Catapres) 0.1 mg Q6H PRN GTB ELEVATED SYSTOLIC BP Last administered on 09/15/16 07:04; Admin Dose 0.1 MG; Start 09/13/16 at 23:00 Hydralazine HCl (Apresoline) 10 mg Q6H PRN IV ELEVATED SYSTOLIC BP Last administered on 09/15/16 02:08; Admin Dose 10 MG; Start 09/15/16 at 01:50 Collagenase (Santyl) 1 applic DAILY TOP Last administered on 10/05/16 09:44; Admin Dose 1 APPLIC; Start 09/18/16 at 09:00 Glycopyrrolate (Robinul) 1 mg Q8 GTB Last administered on 10/05/16 15:08; Admin Dose 1 MG; Start 09/19/16 at 09:30 Amikacin Sulfate AMIKACIN PER PHARMACY NOTE XX ; Start 09/24/16 at 14:00 Sodium Chloride/ Dextrose (Nacl/D10w) 1,019.25 ml @ 50 mls/hr [id number] IV Last administered on 10/04/16 08:00; Admin Dose 50 MLS/HR; Start 09/28/16 at 09:00 Miscellaneous Information 1 ea NOTE XX ; Start 09/28/16 at 09:00 Glucose (Glutose) 15 gm Q15M PRN PO DECREASED GLUCOSE; Start 09/28/16 at 09:00 Glucose (Glutose) 22.5 gm Q15M PRN PO DECREASED GLUCOSE; Start 09/28/16 at 09:00 Dextrose (D50w Syringe) 25 ml Q15M PRN IV DECREASED GLUCOSE Last administered on 09/29/16 18:18; Admin Dose 25 ML; Start 09/28/16 at 09:00 Dextrose (D50w Syringe) 50 ml Q15M PRN IV DECREASED GLUCOSE; Start 09/28/16 at 09:00 Glucagon (Glucagen) 1 mg Q15M PRN IM DECREASED GLUCOSE; Start 09/28/16 at 09:00 Glucose (Glutose) 15 gm Q15M PRN BUCCAL DECREASED GLUCOSE; Start 09/28/16 at 09: 00 Insulin Aspart (Novolog Insulin Pen) NOVOLOG *MILD* ALGORI... Q6 SC Last administered on 10/04/16 18:28; Admin Dose 1 UNIT; Start 09/29/16 at 00:00 IV Flush (NS 10 ml) 10 ml PRN PRN IV FLUSH LINE; Start 09/29/16 at 20:30 Epoetin Jeffry (Epogen (Esrd)) 6,000 units MoWeFr@17 SC Last administered on 18:57; Admin Dose 6,000 UNITS; Start 10/01/16 at 17:00 Miscellaneous Information (*Rx Drug Level Order Reminder*) 1 ONCE ONCE XX ; Start 10/06/16 at 05:00; Stop 10/06/16 at 05:01 TONORMA MD Oct 05, 2016 15:51
--- NOTE | 2016-10-05 16:43 | PN ---
DATE: 10/05/2016 SUBJECTIVE: The patient's general condition is same. He is non-cognitive. There is no eye opening. He is on ventilator support continuously, breathing continuously through tracheostomy. His breath ing appears unlabored. PHYSICAL EXAMINATION: VITAL SIGNS: Stable. Temperature is 98.6, blood pressure is 119/46, pulse rate is 109, respiration s 18, pulse oximetry 97% saturation. He has not had any temperature spikes. NECK: Tracheal secretions are clear. No bleeding is seen. HEART: Regular rhythm. Sinus tachycardia. CHEST: Breath sounds are heard bilaterally, somewhat diminished in the lower lung [place], otherwise clear. ABDOMEN: Soft, not distended. He is tolerating gastrostomy tube feedings. Bowel sounds are presen t. EXTREMITIES: Show generalized edema. LABORATORY DATA: Blood culture is reported to show gram-negative rods to be identified and the sens itivities are awaited. The lab tests show sodium 137, potassium 3.7, BUN 56, creatinine 1.46, glucose 300. The CBC shows a WBC 3900, hemoglobin 8.7, hematocrit 26.6, platelets markedly decreased to 9000. IMPRESSION: 1. Gram-negative sepsis, organism to be identified. 2. Chronic respiratory failure, ventilator dependent. 3. History of seizure disorder. 4. Chronic encephalopathy. 5. History of developmental delay. 6. Pancytopenia. 7. Acute renal failure on dialysis. RECOMMENDATIONS: 1. Continue long-term ventilator support. 2. Continue antibiotics as per ID business analysis consultant. 3. Continue dialysis per the marine railway operator. 4. Continue tube feedings. 5. Continue bronchodilator inhalation therapy to clear the secretions. Dictated By: VEENA STREETER MD, SR/NIKOLAI Conf#: [id number] DID#: [id number]
--- NOTE | 2016-10-05 18:01 | PN ---
Date/Time of Note Date/Time of Note DATE: 10/05/16 TIME: 17:58 Assessment/Plan VTE Prophylaxis VTE Prophylaxis Intervention: SCD's Lines/Catheters IV [facility] PICC Line Central line still needed: No Urinary Cath still in place: Yes Reason Cath still needed: urinary retention Assessment/Plan Chief Complaint/Hosp Course ASSESSMENT AND PLAN: - GNR bacteremia, will d/c PICC. - Severe anemia 2 GI bleed. Continue to monitor hemoglobin and hematocrit. Dr. Singh is following in gastroenterology consultation. Dr. Madyson sanchez is following in hematology consultation. -Hypovolemic shock, resolved. - Acute kidney failure on chronic kidney disease. Continue to monitor BUN and creatinine. Dr. Mk Purdy is following in nephrology consultation. Patient with worsening renal function. Started on Hemodialysis during this admission. - Pancytopenia. - Ventilator-dependent respiratory failure. Dr. Aragon is following in pulmonology consultation. Continue ventilator support, bronchodilators. - HCAP on admission. Status post treatment. - Dysphagia with PEG. - History of seizure disorder. Continue patient on Keppra. - Diastolic dysfunction congestive heart failure with preserved ejection fraction of 60%. - S/p sepsis. Dr. Guy is following patient in infectious disease consultation. - Status post cerebrovascular accident, status post craniotomy. - Mental retardation. Continue Protonix for peptic ulcer disease prophylaxis. Further recommendations based on clinical course. Plan of care discussed with Dr. Mcelroy. Problems: Subjective 24 Hr Interval Summary Free Text/Dictation Patient mild tachycardia, remains afebrile, but cultures with gram-negative rods bacteremia left upper extremity is swollen, will DC PICC line obtain a venous ultrasound of the left upper extremity. Exam/Review of Systems Vital Signs Vitals Vital Signs Date Time Temp Pulse Resp B/P Pulse Ox O2 Delivery O2 Flow Rate FiO2 10/05/16 17:04 105 18 98 40 10/05/16 14:52 98.6 109/46 Intake and Output 10/04/16 10/04/16 10/05/16 15:00 23:00 07:00 Intake Total 1400 ml 780 ml Output Total 2650 ml 100 ml Balance -1250 ml 680 ml Exam Constitutional: alert, well developed Head: atraumatic, normocephalic Eyes: nl conjunctiva ENMT: nl external ears & nose Neck: jvd, supple Respiratory: clear to auscultation Cardiovascular: regular rate and rhythm Gastrointestinal: nl liver, spleen, soft Genitourinary - Male: nl penis, other ( Brar catheter ) Musculoskeletal: nl extremities to inspection, Extremities: normal pulses, bilateral LE s/p vascular intervention Results Result Diagram: 10/05/16 1150 10/05/16 1026 Results 24 hrs Laboratory Tests Test 10/04/16 18:15 10/04/16 22:52 10/05/16 05:15 10/05/16 10:26 Bedside Glucose 178 136 103 Anion Gap 14 Blood Urea Nitrogen 56 H Calcium Level 9.0 Carbon Dioxide Level 23 Chloride Level 104 Creatinine 1.46 H Glucose Level 300 #H Potassium Level 3.7 Sodium Level 137 Test 10/05/16 11:50 10/05/16 13:30 Band Neutrophils % 9.0 H Basophils # 0.1 Basophils % 2.0 Differential Comment MANUAL DIFF Eosinophils # 0.0 Eosinophils % 1.0 Hematocrit 26.6 #L Hemoglobin 8.7 #L Lymphocytes # 0.1 L Lymphocytes % 2.0 L Mean Corpuscular Hemoglobin 29.6 Mean Corpuscular Hemoglobin Concent 32.7 Mean Corpuscular Volume 90.5 Mean Platelet Volume 11.6 H Metamyelocytes # 0.1 Metamyelocytes % 3.0 H Neutrophils # 3.2 Neutrophils % 83.0 H Platelet Count 9 #*L Platelet Estimate PLT APPEAR DECREASED Red Blood Count 2.94 #L Red Cell Distribution Width 17.9 H White Blood Count 3.9 L Bedside Glucose 125 Medications Medications Current Medications Acetaminophen (Tylenol Liquid) 640 mg Q6H PRN GTB PAIN OR TEMP ABOVE 38C Last administered on 10/04/16 05:44; Admin Dose 640 MG; Start 09/06/16 at 22:30 Allopurinol (Zyloprim) 200 mg DAILY GTB Last administered on 10/05/16 09:43; Admin Dose 200 MG; Start 09/07/16 at 09:00 Ascorbic Acid (Vitamin C) 500 mg BID GTB Last administered on 10/05/16 09:43; Admin Dose 500 MG; Start 09/07/16 at 09:00 Calcitriol (Rocaltrol) 0.25 mcg DAILY GTB Last administered on 10/05/16 09:43 ; Admin Dose 0.25 MCG; Start 09/07/16 at 09:00 Chlorhexidine Gluconate (Peridex) 15 ml BID MM Last administered on 10/05/16 09:43; Admin Dose 15 ML; Start 09/07/16 at 09:00 Famotidine (Pepcid) 40 mg DAILY GTB Last administered on 10/05/16 09:43; Admin Dose 40 MG; Start 09/07/16 at 09:00 Lansoprazole (Prevacid) 30 mg BID@ GTB Last administered on 10/05/16 05: 16; Admin Dose 30 MG; Start 09/07/16 at 06:00 Levetiracetam (Keppra Liquid) 500 mg BID GTB Last administered on 10/05/16 09: 50; Admin Dose 500 MG; Start 09/07/16 at 09:00 Metoclopramide HCl (Reglan) 5 mg Q8H PRN GTB NAUSEA AND/OR VOMITING; Start 09/06 at 22:30 Sucralfate (Carafate Susp) 1 gm BID GTB Last administered on 10/05/16 09:43; Admin Dose 1 GM; Start 09/07/16 at 09:00 Ondansetron HCl (Zofran Inj) 4 mg Q6H PRN IV NAUSEA AND/OR VOMITING Last administered on 09/17/16 00:52; Admin Dose 4 MG; Start 09/06/16 at 22:30 Morphine Sulfate (morphine) 2 mg Q4H PRN IV PAIN LEVEL 7-10 Last administered on 09/16/16 20:19; Admin Dose 2 MG; Start 09/06/16 at 22:30 Metoclopramide HCl (Reglan) 5 mg Q6H PRN IV RESIDUALS > 100; Start 09/10/16 at 19:00 Clonidine (Catapres) 0.1 mg Q6H PRN GTB ELEVATED SYSTOLIC BP Last administered on 09/15/16 07:04; Admin Dose 0.1 MG; Start 09/13/16 at 23:00 Hydralazine HCl (Apresoline) 10 mg Q6H PRN IV ELEVATED SYSTOLIC BP Last administered on 09/15/16 02:08; Admin Dose 10 MG; Start 09/15/16 at 01:50 Collagenase (Santyl) 1 applic DAILY TOP Last administered on 10/05/16 09:44; Admin Dose 1 APPLIC; Start 09/18/16 at 09:00 Glycopyrrolate (Robinul) 1 mg Q8 GTB Last administered on 10/05/16 15:08; Admin Dose 1 MG; Start 09/19/16 at 09:30 Amikacin Sulfate AMIKACIN PER PHARMACY NOTE XX ; Start 09/24/16 at 14:00 Sodium Chloride/ Dextrose (Nacl/D10w) 1,019.25 ml @ 50 mls/hr [id number] IV Last administered on 10/04/16 08:00; Admin Dose 50 MLS/HR; Start 09/28/16 at 09:00 Miscellaneous Information 1 ea NOTE XX ; Start 09/28/16 at 09:00 Glucose (Glutose) 15 gm Q15M PRN PO DECREASED GLUCOSE; Start 09/28/16 at 09:00 Glucose (Glutose) 22.5 gm Q15M PRN PO DECREASED GLUCOSE; Start 09/28/16 at 09:00 Dextrose (D50w Syringe) 25 ml Q15M PRN IV DECREASED GLUCOSE Last administered on 09/29/16 18:18; Admin Dose 25 ML; Start 09/28/16 at 09:00 Dextrose (D50w Syringe) 50 ml Q15M PRN IV DECREASED GLUCOSE; Start 09/28/16 at 09:00 Glucagon (Glucagen) 1 mg Q15M PRN IM DECREASED GLUCOSE; Start 09/28/16 at 09:00 Glucose (Glutose) 15 gm Q15M PRN BUCCAL DECREASED GLUCOSE; Start 09/28/16 at 09: 00 Insulin Aspart (Novolog Insulin Pen) NOVOLOG *MILD* ALGORI... Q6 SC Last administered on 10/04/16 18:28; Admin Dose 1 UNIT; Start 09/29/16 at 00:00 IV Flush (NS 10 ml) 10 ml PRN PRN IV FLUSH LINE; Start 09/29/16 at 20:30 Epoetin Jeffry (Epogen (Esrd)) 6,000 units MoWeFr@17 SC Last administered on 18:57; Admin Dose 6,000 UNITS; Start 10/01/16 at 17:00 Miscellaneous Information (*Rx Drug Level Order Reminder*) 1 ONCE ONCE XX ; Start 3/11/17 at 05:00; Stop 10/06/16 at 05:01 QUIN ORTIZ Oct 05, 2016 18:00
[2016-10-05] MEDS: EPOETIN 3000 UNITS/1 ML INJ (ESRD) SC SCH (19:06)
[2016-10-06] VITALS (31 sets, daily range): BP systolic 95–144; BP diastolic 40–59; PULSE 88–106; RESP 14–25
[2016-10-06] MEDS: INSULIN ASPART [NOVOLOG] 3 ML PEN SC SCH ×4 (00:07→17:53)
[2016-10-06] MEDS: SODIUM CHLORIDE 23.4% 77 MEQ in DEXTROSE 10% 1,000 ML IV SCH ×2 (00:08→21:59)
[2016-10-06] MEDS: IPRATROPIUM (HFA) 12.9 GM INHALER INH SCH ×4 (02:02→20:15)
[2016-10-06] MEDS: LEVALBUTEROL (HFA) 15 GM INHALER INH SCH ×4 (02:02→20:15)
--- NOTE | 2016-10-06 03:09 | RADRPT ---
PROCEDURE: US upper extremity Venous. CLINICAL INDICATION: Swelling. TECHNIQUE: Multiple sonographic images of the left upper extremity venous system was obtained util izing grayscale, color-flow, compressive sonography and doppler imaging with augmentation. The imag es were reviewed on a PACS workstation. COMPARISON: There are no similar studies submitted for comparison. FINDINGS: There is normal compressibility and flow within the left internal jugular vein, subclavian vein, axi llary vein, brachial, basilic, cephalic, radial and ulnar veins. IMPRESSION: No sonographic evidence for venous thrombosis. RPTAT: HIKT .Kofi Orozco MD, MD Date Time Electronically viewed and signed by .Kofi Orozco MD, MD on 10/06/2016 03:09 .T/
[2016-10-06 05:58] LABS: ADD SCAN DIFF NO
[2016-10-06] MEDS: GLYCOPYRROLATE 1 MG TAB GTB SCH ×3 (06:05→22:55)
[2016-10-06] MEDS: LANSOPRAZOLE 30 MG CAP GTB SCH ×2 (06:05→17:41)
[2016-10-06 06:11] LABS: POTASSIUM 3.9 mmol/L (3.5-5.1)
[2016-10-06 06:13] LABS: CREATININE 1.64 mg/dl (0.61-1.24)
[2016-10-06 06:14] LABS: CALCIUM 9.3 mg/dl (8.4-10.2)
[2016-10-06 06:17] LABS: ABNORMAL IP MESSAGE 1; BASOPHILS % 0.2 % (0.0-2.0); EOSINOPHILS # 0.1 10^3/ul (0.0-0.5); EOSINOPHILS % 1.3 % (0.0-7.0); HEMATOCRIT 24.6 % (42.0-52.0); HEMOGLOBIN 8.1 g/dl (14.0-18.0); LYMPHOCYTES # 0.3 10^3/ul (0.8-2.9); LYMPHOCYTES % 5.3 % (15.0-51.0); MEAN CORPUSCULAR HEMOGLOBIN 29.5 pg (29.0-33.0); MEAN CORPUSCULAR HGB CONC 32.9 g/dl (32.0-37.0); MEAN CORPUSCULAR VOLUME 89.5 fl (82.0-101.0); MEAN PLATELET VOLUME 13.1 fl (7.4-10.4); MONOCYTE # 0.2 10^3/ul (0.3-0.9); NEUTROPHIL # 4.9 10^3/ul (1.6-7.5); NEUTROPHILS % 88.5 % (39.0-77.0); PLATELET COUNT 43 10^3/UL (140-415); RED BLOOD COUNT 2.75 10^6/ul (4.70-6.10); RED CELL DISTRIBUTION WIDTH 18.2 % (11.5-14.5); WHITE BLOOD COUNT 5.5 10^3/ul (4.8-10.8)
[2016-10-06 08:13] LABS: TOXIC GRANULATION 1+
[2016-10-06] MEDS: LEVETIRACETAM (100 MG/ML) 5ML CUP GTB SCH ×2 (08:50→20:40)
[2016-10-06] MEDS: CHLORHEXIDINE GLUCONATE 15 ML UD CUP MM SCH ×2 (08:50→20:40)
[2016-10-06] MEDS: SUCRALFATE (100 MG/ML) 10ML CUP GTB SCH ×2 (08:50→20:40)
[2016-10-06] MEDS: SEVELAMER CARBONATE 2.4 GM PKT GTB SCH ×3 (08:50→17:41)
[2016-10-06] MEDS: ASCORBIC ACID 500 MG TAB GTB SCH ×2 (08:51→20:40)
[2016-10-06] MEDS: CALCITRIOL 0.25 MCG CAP GTB SCH (08:51)
[2016-10-06] MEDS: ALLOPURINOL 100 MG TAB GTB SCH (08:51)
[2016-10-06] MEDS: FAMOTIDINE 20 MG TAB GTB SCH (08:51)
[2016-10-06] MEDS: COLLAGENASE 30 GM TUBE TOP SCH (08:53)
[2016-10-06] MEDS ORDERED: MIDODRINE 5 MG TAB PO ONE (10:00)
[2016-10-06 10:23] LABS: HEPARIN INDUCED PLATELET AB POSITIVE (NEGATIVE)
--- NOTE | 2016-10-06 10:40 | PN ---
DATE: 10/06/2016 PULMONARY FOLLOWUP SUBJECTIVE: The patient's general condition is the same. He is on ventilator support, breathing co mfortably. OBJECTIVE: VITAL SIGNS: Stable. Blood pressure is 119/48, temperature 97.9, pulse rate is 89, respiratory rat e is 16, pulse oximetry shows 99% saturation on 40% inhaled oxygen concentration. He is on continuo us ventilator support through tracheostomy. NECK: Tracheal secretions are clear. No bleeding is seen. HEART: Regular rhythm. CHEST: Breath sounds are diminished in both lower lung [place], otherwise clear except for a few occ asional rales and rhonchi in the lung bases. ABDOMEN: Soft, not distended. Tolerating gastrostomy tube feedings. Bowel sounds are present. EXTREMITIES: Show generalized edema. LABORATORY DATA: From today shows sodium 138, potassium 3.9, BUN 71, creatinine 1.64, glucose 163. CBC shows WBC of 5500, hemoglobin 8.1, hematocrit 24.6, platelets increased to 43,000 from 9,000 ye sterday after platelet transfusion. The culture results show growth of gram-negative rods in blood, but identification and sensitivity a re awaited. The patient also had ultrasound of the upper extremities, which showed no evidence of deep vein thro mbosis. IMPRESSION: 1. Gram-negative sepsis, organism to be identified. 2. Chronic respiratory failure, ventilator-dependent. 3. History of seizure disorder. 4. Chronic encephalopathy. 5. Pancytopenia. 6. History of developmental delay. 7. Acute renal failure, on dialysis. RECOMMENDATIONS: 1. Continue long-term ventilator support. 2. Continue antibiotics as per the ID eligibility consultant. 3. Continue dialysis as per [facility] consultant. 4. Continue tube feedings. 5. Continue bronchodilator inhalation therapy to clear the secretions. Dictated By: VEENA STREETER MD SR/NTS Conf#: [id number] DID#: [id number]
--- NOTE | 2016-10-06 11:02 | PN ---
Date/Time of Note Date/Time of Note DATE: 10/06/16 TIME: 10:58 Assessment/Plan VTE Prophylaxis VTE Prophylaxis Intervention: contraindicated VTE Contraindication Reason: heparin induced thrombocytopenia Lines/Catheters [facility] PICC Line Central line still needed: Yes Urinary Cath still in place: Yes Reason Cath still needed: urinary retention Assessment/Plan Assessment/Plan 56 year old male with mental retardation, ventilator dependent respiratory failure, dysphagia with PEG, history of seizure disorder on Keppra, diastolic dysfunction congestive heart failure with preserved ejection fraction of 60%, status post cerebrovascular accident, status post craniotomy, acute on chronic kidney failure now on dialysis, with GI bleed with Dr. Singh following, hypovolemic and septic shock with multiple decubitus with wound culture growing multi-drug resistant organisms on Amikacin. Hematology was consulted for anemia and thrombocytopenia. # Thrombocytopenia, with platelets of 8 on admission, unclear platelet count at baseline. Now platelets at 43, after transfusion. Likely secondary to sepsis, possibly DIC. 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 - Possible contribution due to sepsis as well particularly in the setting of recent fever, and now with GNR bacteremia. DIC panel may suggest component of DIC with prolongs coags and elevated D dimer with rare schistocytes on smear though fibrin split products not elevated. HIV and Hep panel negative. Continue to monitor platelet count - Peripheral smear reviewed by pathology and confirms decreased platelet count, no microangiopathic changes, rare schistocytes, occasional metamyelocytes, mild bandemia, and no blasts - Abdominal US was technically limited study due to patient's inability to cooperate demonstrating mild hepatomegaly with a slightly coarsened echotexture which may indicate steatosis/hepatic cellular disease. # Normocytic anemia, likely multifactorial due to GI bleed, chronic kidney disease, likely chronic inflammation - Iron panel suggests anemia of chronic inflammation, high ferritin as expected. ; B12/folate WNL, LDH not elevated, retic count inappropriately low - Continue epo. hgb 8-9 after transfusion. Subjective 24 Hr Interval Summary Subjective hx not possible: pt non-verbal, pt critical Exam/Review of Systems Vital Signs Vitals Vital Signs Date Time Temp Pulse Resp B/P Pulse Ox O2 Delivery O2 Flow Rate FiO2 10/06/16 10:10 89 16 10/06/16 09:05 99 40 10/06/16 07:31 97.9 119/48 10/05/16 21:21 Mechanical Ventilator Intake and Output 10/05/16 10/05/16 10/06/16 15:00 23:00 07:00 Intake Total 680 ml 400 ml Output Total 100 ml 50 ml Balance 580 ml 350 ml Exam hands with edema decreased b/s AC 14 vent Constitutional: frail, non-verbal Respiratory: normal air movement Gastrointestinal: soft Results Result Diagram: 10/06/16 0521 10/06/16 0521 Results 24 hrs Laboratory Tests Test 10/05/16 11:50 10/05/16 13:30 10/05/16 18:58 10/06/16 00:05 Band Neutrophils % 9.0 H Basophils # 0.1 Basophils % 2.0 Differential Comment MANUAL DIFF Eosinophils # 0.0 Eosinophils % 1.0 Hematocrit 26.6 #L Hemoglobin 8.7 #L Lymphocytes # 0.1 L Lymphocytes % 2.0 L Mean Corpuscular Hemoglobin 29.6 Mean Corpuscular Hemoglobin Concent 32.7 Mean Corpuscular Volume 90.5 Mean Platelet Volume 11.6 H Metamyelocytes # 0.1 Metamyelocytes % 3.0 H Neutrophils # 3.2 Neutrophils % 83.0 H Platelet Count 9 #*L Platelet Estimate PLT APPEAR DECREASED Red Blood Count 2.94 #L Red Cell Distribution Width 17.9 H White Blood Count 3.9 L Bedside Glucose 125 154 174 Test 10/06/16 05:21 10/06/16 06:04 Anion Gap 13 Basophils # 0.0 Basophils % 0.2 Blood Urea Nitrogen 71 H Calcium Level 9.3 Carbon Dioxide Level 25 Chloride Level 104 Creatinine 1.64 H Eosinophils # 0.1 Eosinophils % 1.3 Glucose Level 163 # Hematocrit 24.6 L Hemoglobin 8.1 L Lymphocytes # 0.3 L Lymphocytes % 5.3 L Mean Corpuscular Hemoglobin 29.5 Mean Corpuscular Hemoglobin Concent 32.9 Mean Corpuscular Volume 89.5 Mean Platelet Volume 13.1 H Monocytes # 0.2 L Monocytes % 4.0 Neutrophils # 4.9 Neutrophils % 88.5 H Nucleated Red Blood Cells # 0.0 Nucleated Red Blood Cells % 0.0 Platelet Count 43 #L Potassium Level 3.9 Random Vancomycin Level 15.2 Red Blood Count 2.75 L Red Cell Distribution Width 18.2 H Sodium Level 138 Toxic Granulation 1+ White Blood Count 5.5 # Bedside Glucose 186 Medications Medications Current Medications Acetaminophen (Tylenol Liquid) 640 mg Q6H PRN GTB PAIN OR TEMP ABOVE 38C Last administered on 10/04/16 05:44; Admin Dose 640 MG; Start 09/06/16 at 22:30 Allopurinol (Zyloprim) 200 mg DAILY GTB Last administered on 10/06/16 08:51; Admin Dose 200 MG; Start 09/07/16 at 09:00 Ascorbic Acid (Vitamin C) 500 mg BID GTB Last administered on 10/06/16 08:51; Admin Dose 500 MG; Start 09/07/16 at 09:00 Calcitriol (Rocaltrol) 0.25 mcg DAILY GTB Last administered on 10/06/16 08:51 ; Admin Dose 0.25 MCG; Start 09/07/16 at 09:00 Chlorhexidine Gluconate (Peridex) 15 ml BID MM Last administered on 10/06/16 08:50; Admin Dose 15 ML; Start 09/07/16 at 09:00 Famotidine (Pepcid) 40 mg DAILY GTB Last administered on 10/06/16 08:51; Admin Dose 40 MG; Start 09/07/16 at 09:00 Lansoprazole (Prevacid) 30 mg BID@18 GTB Last administered on 10/06/16 06: 05; Admin Dose 30 MG; Start 09/07/16 at 06:00 Levetiracetam (Keppra Liquid) 500 mg BID GTB Last administered on 10/06/16 08: 50; Admin Dose 500 MG; Start 09/07/16 at 09:00 Metoclopramide HCl (Reglan) 5 mg Q8H PRN GTB NAUSEA AND/OR VOMITING; Start 09/06 at 22:30 Sucralfate (Carafate Susp) 1 gm BID GTB Last administered on 10/06/16 08:50; Admin Dose 1 GM; Start 09/07/16 at 09:00 Ondansetron HCl (Zofran Inj) 4 mg Q6H PRN IV NAUSEA AND/OR VOMITING Last administered on 09/17/16 00:52; Admin Dose 4 MG; Start 09/06/16 at 22:30 Morphine Sulfate (morphine) 2 mg Q4H PRN IV PAIN LEVEL 7-10 Last administered on 09/16/16 20:19; Admin Dose 2 MG; Start 09/06/16 at 22:30 Metoclopramide HCl (Reglan) 5 mg Q6H PRN IV RESIDUALS > 100; Start 09/10/16 at 19:00 Clonidine (Catapres) 0.1 mg Q6H PRN GTB ELEVATED SYSTOLIC BP Last administered on 09/15/16 07:04; Admin Dose 0.1 MG; Start 09/13/16 at 23:00 Hydralazine HCl (Apresoline) 10 mg Q6H PRN IV ELEVATED SYSTOLIC BP Last administered on 09/15/16 02:08; Admin Dose 10 MG; Start 09/15/16 at 01:50 Collagenase (Santyl) 1 applic DAILY TOP Last administered on 10/06/16 08:53; Admin Dose 1 APPLIC; Start 09/18/16 at 09:00 Glycopyrrolate (Robinul) 1 mg Q8 GTB Last administered on 10/06/16 06:05; Admin Dose 1 MG; Start 09/19/16 at 09:30 Amikacin Sulfate AMIKACIN PER PHARMACY NOTE XX ; Start 09/24/16 at 14:00 Sodium Chloride/ Dextrose (Nacl/D10w) 1,019.25 ml @ 50 mls/hr [id number] IV Last administered on 10/06/16 00:08; Admin Dose 50 MLS/HR; Start 09/28/16 at 09:00 Miscellaneous Information 1 ea NOTE XX ; Start 09/28/16 at 09:00 Glucose (Glutose) 15 gm Q15M PRN PO DECREASED GLUCOSE; Start 09/28/16 at 09:00 Glucose (Glutose) 22.5 gm Q15M PRN PO DECREASED GLUCOSE; Start 09/28/16 at 09:00 Dextrose (D50w Syringe) 25 ml Q15M PRN IV DECREASED GLUCOSE Last administered on 09/29/16 18:18; Admin Dose 25 ML; Start 09/28/16 at 09:00 Dextrose (D50w Syringe) 50 ml Q15M PRN IV DECREASED GLUCOSE; Start 09/28/16 at 09:00 Glucagon (Glucagen) 1 mg Q15M PRN IM DECREASED GLUCOSE; Start 09/28/16 at 09:00 Glucose (Glutose) 15 gm Q15M PRN BUCCAL DECREASED GLUCOSE; Start 09/28/16 at 09: 00 Insulin Aspart (Novolog Insulin Pen) NOVOLOG *MILD* ALGORI... Q6 SC Last administered on 10/06/16 06:07; Admin Dose 2 UNIT; Start 09/29/16 at 00:00 IV Flush (NS 10 ml) 10 ml PRN PRN IV FLUSH LINE; Start 09/29/16 at 20:30 Epoetin Jeffry 6000 units 6,000 units [email or web address]@17 SC Last administered on 19:06; Admin Dose 6,000 UNITS; Start 10/01/16 at 17:00 Vancomycin HCl/ Sodium Chloride (Vancocin/NS) 250 ml @ 83.333 mls/ hr 18 IVPB ; Start 10/06/16 at 18:00; Stop 10/07/16 at 05:59 NATALI PHILLIPS MD Oct 06, 2016 11:02
--- NOTE | 2016-10-06 12:19 | CONS ---
Date/Time of Note Date/Time of Note DATE: 10/06/16 TIME: 12:17 Assessment/Plan Assessment/Plan Additional Assessment/Plan 1. Acute kidney injury on possible chronic kidney disease unknown stage secondary to severe prerenal azotemia causing ischemic acute tubular necrosis in the setting of severe anemia.- continue to have Anuria with uremic symptoms and GI bleeding- started on HD during this admission 2. Severe anemia,s/p PRBC 3. Chronic respiratory failure, status post tracheostomy, on vent. 4. Pancytopenia. 5. History of a seizure disorder. 6. thrombocytopenia PLAN: Pt is on chronic HD now, no HD today,HD ordered for today with midodrine support will continue to follow up on patient Consultation Date/Type/Reason Admit Date/Time Sep 06, 2016 at 22:27 Initial Consult Date Aug Type of Consultation: NEPHROLOGY Referring Provider: FREDDY COELLO MD 24 HR Interval Summary Free Text/Dictation plan for HD today with midodrine Exam/Review of Systems Vital Signs Vitals Vital Signs Date Time Temp Pulse Resp B/P Pulse Ox O2 Delivery O2 Flow Rate FiO2 10/06/16 11:43 98.7 102 18 106/42 98 10/06/16 11:00 40 10/05/16 21:21 Mechanical Ventilator Intake and Output 10/05/16 10/05/16 10/06/16 15:00 23:00 07:00 Intake Total 680 ml 400 ml Output Total 100 ml 50 ml Balance 580 ml 350 ml Exam GENERAL: chronically ill-appearing, middle-aged man who is lying comfortably in bed. HEENT: Head atraumatic, normocephalic. Sclerae anicteric. Buccal mucosa dry. NECK: Supple. Tracheostomy present. CHEST: Rise symmetrical. Breath sounds diminished. HEART: S1, S2. ABDOMEN: Soft, bowel tones present. EXTREMITIES: Without cyanosis. Contractured. + permacath Right IJ Results Result Diagram: 10/06/1652010/06/16520 Results 24 hrs Laboratory Tests Test 10/05/16 13:30 10/05/16 18:58 10/06/16 00:05 10/06/16 05:21 Bedside Glucose 125 154 174 Anion Gap 13 Basophils # 0.0 Basophils % 0.2 Blood Urea Nitrogen 71 H Calcium Level 9.3 Carbon Dioxide Level 25 Chloride Level 104 Creatinine 1.64 H Eosinophils # 0.1 Eosinophils % 1.3 Glucose Level 163 # Hematocrit 24.6 L Hemoglobin 8.1 L Lymphocytes # 0.3 L Lymphocytes % 5.3 L Mean Corpuscular Hemoglobin 29.5 Mean Corpuscular Hemoglobin Concent 32.9 Mean Corpuscular Volume 89.5 Mean Platelet Volume 13.1 H Monocytes # 0.2 L Monocytes % 4.0 Neutrophils # 4.9 Neutrophils % 88.5 H Nucleated Red Blood Cells # 0.0 Nucleated Red Blood Cells % 0.0 Platelet Count 43 #L Potassium Level 3.9 Random Vancomycin Level 15.2 Red Blood Count 2.75 L Red Cell Distribution Width 18.2 H Sodium Level 138 Toxic Granulation 1+ White Blood Count 5.5 # Test 10/06/16 06:04 10/06/16 11:53 Bedside Glucose 186 201 Medications Medications Current Medications Acetaminophen (Tylenol Liquid) 640 mg Q6H PRN GTB PAIN OR TEMP ABOVE 38C Last administered on 10/04/16 05:44; Admin Dose 640 MG; Start 09/06/16 at 22:30 Allopurinol (Zyloprim) 200 mg DAILY GTB Last administered on 10/06/16 08:51; Admin Dose 200 MG; Start 09/07/16 at 09:00 Ascorbic Acid (Vitamin C) 500 mg BID GTB Last administered on 10/06/16 08:51; Admin Dose 500 MG; Start 09/07/16 at 09:00 Calcitriol (Rocaltrol) 0.25 mcg DAILY GTB Last administered on 10/06/16 08:51 ; Admin Dose 0.25 MCG; Start 09/07/16 at 09:00 Chlorhexidine Gluconate (Peridex) 15 ml BID MM Last administered on 10/06/16 08:50; Admin Dose 15 ML; Start 09/07/16 at 09:00 Famotidine (Pepcid) 40 mg DAILY GTB Last administered on 10/06/16 08:51; Admin Dose 40 MG; Start 09/07/16 at 09:00 Lansoprazole (Prevacid) 30 mg BID@,18 GTB Last administered on 10/06/16 06: 05; Admin Dose 30 MG; Start 09/07/16 at 06:00 Levetiracetam (Keppra Liquid) 500 mg BID GTB Last administered on 10/06/16 08: 50; Admin Dose 500 MG; Start 09/07/16 at 09:00 Metoclopramide HCl (Reglan) 5 mg Q8H PRN GTB NAUSEA AND/OR VOMITING; Start 09/06 at 22:30 Sucralfate (Carafate Susp) 1 gm BID GTB Last administered on 10/06/16 08:50; Admin Dose 1 GM; Start 09/07/16 at 09:00 Ondansetron HCl (Zofran Inj) 4 mg Q6H PRN IV NAUSEA AND/OR VOMITING Last administered on 09/17/16 00:52; Admin Dose 4 MG; Start 09/06/16 at 22:30 Morphine Sulfate (morphine) 2 mg Q4H PRN IV PAIN LEVEL 7-10 Last administered on 09/16/16 20:19; Admin Dose 2 MG; Start 09/06/16 at 22:30 Metoclopramide HCl (Reglan) 5 mg Q6H PRN IV RESIDUALS > 100; Start 09/10/16 at 19:00 Clonidine (Catapres) 0.1 mg Q6H PRN GTB ELEVATED SYSTOLIC BP Last administered on 09/15/16 07:04; Admin Dose 0.1 MG; Start 09/13/16 at 23:00 Hydralazine HCl (Apresoline) 10 mg Q6H PRN IV ELEVATED SYSTOLIC BP Last administered on 09/15/16 02:08; Admin Dose 10 MG; Start 09/15/16 at 01:50 Collagenase (Santyl) 1 applic DAILY TOP Last administered on 10/06/16 08:53; Admin Dose 1 APPLIC; Start 09/18/16 at 09:00 Glycopyrrolate (Robinul) 1 mg Q8 GTB Last administered on 10/06/16 06:05; Admin Dose 1 MG; Start 09/19/16 at 09:30 Amikacin Sulfate AMIKACIN PER PHARMACY NOTE XX ; Start 09/24/16 at 14:00 Sodium Chloride/ Dextrose (Nacl/D10w) 1,019.25 ml @ 50 mls/hr [id number] IV Last administered on 10/06/16 00:08; Admin Dose 50 MLS/HR; Start 09/28/16 at 09:00 Miscellaneous Information 1 ea NOTE XX ; Start 09/28/16 at 09:00 Glucose (Glutose) 15 gm Q15M PRN PO DECREASED GLUCOSE; Start 09/28/16 at 09:00 Glucose (Glutose) 22.5 gm Q15M PRN PO DECREASED GLUCOSE; Start 09/28/16 at 09:00 Dextrose (D50w Syringe) 25 ml Q15M PRN IV DECREASED GLUCOSE Last administered on 09/29/16 18:18; Admin Dose 25 ML; Start 09/28/16 at 09:00 Dextrose (D50w Syringe) 50 ml Q15M PRN IV DECREASED GLUCOSE; Start 09/28/16 at 09:00 Glucagon (Glucagen) 1 mg Q15M PRN IM DECREASED GLUCOSE; Start 09/28/16 at 09:00 Glucose (Glutose) 15 gm Q15M PRN BUCCAL DECREASED GLUCOSE; Start 09/28/16 at 09: 00 Insulin Aspart (Novolog Insulin Pen) NOVOLOG *MILD* ALGORI... Q6 SC Last administered on 10/06/16 11:57; Admin Dose 2 UNIT; Start 09/29/16 at 00:00 IV Flush (NS 10 ml) 10 ml PRN PRN IV FLUSH LINE; Start 09/29/16 at 20:30 Epoetin Jeffry 6000 units 6,000 units MoWeFr@17 SC Last administered on 19:06; Admin Dose 6,000 UNITS; Start 10/01/16 at 17:00 Vancomycin HCl/ Sodium Chloride (Vancocin/NS) 250 ml @ 83.333 mls/ hr 18 IVPB ; Start 10/06/16 at 18:00; Stop 10/07/16 at 05:59 KENIA TURCIOS MD Oct 06, 2016 12:19
--- NOTE | 2016-10-06 13:45 | PN ---
Date/Time of Note Date/Time of Note DATE: 10/06/16 TIME: 13:43 Assessment/Plan VTE Prophylaxis VTE Prophylaxis Intervention: SCD's Lines/Catheters IV [facility] PICC Line Urinary Cath still in place: Yes Assessment/Plan Assessment/Plan - GNR bacteremia, will d/c PICC. - Severe anemia 2 GI bleed. Continue to monitor hemoglobin and hematocrit. Dr. Singh is following in gastroenterology consultation. Dr. Madyson sanchez is following in hematology consultation. -Hypovolemic shock, resolved. - Acute kidney failure on chronic kidney disease. Continue to monitor BUN and creatinine. Dr. Mk Purdy is following in nephrology consultation. Patient with worsening renal function. Started on Hemodialysis during this admission. - Pancytopenia. - Ventilator-dependent respiratory failure. Dr. Aragon is following in pulmonology consultation. Continue ventilator support, bronchodilators. - HCAP on admission. Status post treatment. - Dysphagia with PEG. - History of seizure disorder. Continue patient on Keppra. - Diastolic dysfunction congestive heart failure with preserved ejection fraction of 60%. - S/p sepsis. Dr. Guy is following patient in infectious disease consultation. - Status post cerebrovascular accident, status post craniotomy. - Mental retardation. Continue Protonix for peptic ulcer disease prophylaxis. Further recommendations based on clinical course. Plan of care discussed with Dr. Mcelroy. Subjective 24 Hr Interval Summary Free Text/Dictation NAD, tolerates feedings, no fever, no bleeding reported from any orifices. dw staff Exam/Review of Systems Vital Signs Vitals Vital Signs Date Time Temp Pulse Resp B/P Pulse Ox O2 Delivery O2 Flow Rate FiO2 10/06/16 12:13 98 10/06/16 11:43 98.7 18 106/42 98 10/06/16 11:00 40 10/05/16 21:21 Mechanical Ventilator Intake and Output 10/05/16 10/05/16 10/06/16 15:00 23:00 07:00 Intake Total 680 ml 400 ml Output Total 100 ml 50 ml Balance 580 ml 350 ml Exam Constitutional: non-verbal ENMT: nl external ears & nose Neck: non-tender, thyromegaly Cardiovascular: nl pulses Gastrointestinal: non-tender, other, soft Musculoskeletal: muscle weakness Neurological: unresponsive Lymph: nontender Results Result Diagram: 10/06/16 0521 10/06/16 05 Results 24 hrs Laboratory Tests Test 10/05/16 18:58 10/06/16 00:05 10/06/16 05:21 10/06/16 06:04 Bedside Glucose 154 174 186 Anion Gap 13 Basophils # 0.0 Basophils % 0.2 Blood Urea Nitrogen 71 H Calcium Level 9.3 Carbon Dioxide Level 25 Chloride Level 104 Creatinine 1.64 H Eosinophils # 0.1 Eosinophils % 1.3 Glucose Level 163 # Hematocrit 24.6 L Hemoglobin 8.1 L Lymphocytes # 0.3 L Lymphocytes % 5.3 L Mean Corpuscular Hemoglobin 29.5 Mean Corpuscular Hemoglobin Concent 32.9 Mean Corpuscular Volume 89.5 Mean Platelet Volume 13.1 H Monocytes # 0.2 L Monocytes % 4.0 Neutrophils # 4.9 Neutrophils % 88.5 H Nucleated Red Blood Cells # 0.0 Nucleated Red Blood Cells % 0.0 Platelet Count 43 #L Potassium Level 3.9 Random Vancomycin Level 15.2 Red Blood Count 2.75 L Red Cell Distribution Width 18.2 H Sodium Level 138 Toxic Granulation 1+ White Blood Count 5.5 # Test 10/06/16 11:53 Bedside Glucose 201 Medications Medications Current Medications Acetaminophen (Tylenol Liquid) 640 mg Q6H PRN GTB PAIN OR TEMP ABOVE 38C Last administered on 10/04/16 05:44; Admin Dose 640 MG; Start 09/06/16 at 22:30 Allopurinol (Zyloprim) 200 mg DAILY GTB Last administered on 10/06/16 08:51; Admin Dose 200 MG; Start 09/07/16 at 09:00 Ascorbic Acid (Vitamin C) 500 mg BID GTB Last administered on 10/06/16 08:51; Admin Dose 500 MG; Start 09/07/16 at 09:00 Calcitriol (Rocaltrol) 0.25 mcg DAILY GTB Last administered on 10/06/16 08:51 ; Admin Dose 0.25 MCG; Start 09/07/16 at 09:00 Chlorhexidine Gluconate (Peridex) 15 ml BID MM Last administered on 10/06/16 08:50; Admin Dose 15 ML; Start 09/07/16 at 09:00 Famotidine (Pepcid) 40 mg DAILY GTB Last administered on 10/06/16 08:51; Admin Dose 40 MG; Start 09/07/16 at 09:00 Lansoprazole (Prevacid) 30 mg BID@ GTB Last administered on 10/06/16 06: 05; Admin Dose 30 MG; Start 09/07/16 at 06:00 Levetiracetam (Keppra Liquid) 500 mg BID GTB Last administered on 10/06/16 08: 50; Admin Dose 500 MG; Start 09/07/16 at 09:00 Metoclopramide HCl (Reglan) 5 mg Q8H PRN GTB NAUSEA AND/OR VOMITING; Start 09/06 at 22:30 Sucralfate (Carafate Susp) 1 gm BID GTB Last administered on 10/06/16 08:50; Admin Dose 1 GM; Start 09/07/16 at 09:00 Ondansetron HCl (Zofran Inj) 4 mg Q6H PRN IV NAUSEA AND/OR VOMITING Last administered on 09/17/16 00:52; Admin Dose 4 MG; Start 09/06/16 at 22:30 Morphine Sulfate (morphine) 2 mg Q4H PRN IV PAIN LEVEL 7-10 Last administered on 09/16/16 20:19; Admin Dose 2 MG; Start 09/06/16 at 22:30 Metoclopramide HCl (Reglan) 5 mg Q6H PRN IV RESIDUALS > 100; Start 09/10/16 at 19:00 Clonidine (Catapres) 0.1 mg Q6H PRN GTB ELEVATED SYSTOLIC BP Last administered on 09/15/16 07:04; Admin Dose 0.1 MG; Start 09/13/16 at 23:00 Hydralazine HCl (Apresoline) 10 mg Q6H PRN IV ELEVATED SYSTOLIC BP Last administered on 09/15/16 02:08; Admin Dose 10 MG; Start 09/15/16 at 01:50 Collagenase (Santyl) 1 applic DAILY TOP Last administered on 10/06/16 08:53; Admin Dose 1 APPLIC; Start 09/18/16 at 09:00 Glycopyrrolate (Robinul) 1 mg Q8 GTB Last administered on 10/06/16 06:05; Admin Dose 1 MG; Start 09/19/16 at 09:30 Amikacin Sulfate AMIKACIN PER PHARMACY NOTE XX ; Start 09/24/16 at 14:00 Sodium Chloride/ Dextrose (Nacl/D10w) 1,019.25 ml @ 50 mls/hr [id number] IV Last administered on 10/06/16 00:08; Admin Dose 50 MLS/HR; Start 09/28/16 at 09:00 Miscellaneous Information 1 ea NOTE XX ; Start 09/28/16 at 09:00 Glucose (Glutose) 15 gm Q15M PRN PO DECREASED GLUCOSE; Start 09/28/16 at 09:00 Glucose (Glutose) 22.5 gm Q15M PRN PO DECREASED GLUCOSE; Start 09/28/16 at 09:00 Dextrose (D50w Syringe) 25 ml Q15M PRN IV DECREASED GLUCOSE Last administered on 09/29/16 18:18; Admin Dose 25 ML; Start 09/28/16 at 09:00 Dextrose (D50w Syringe) 50 ml Q15M PRN IV DECREASED GLUCOSE; Start 09/28/16 at 09:00 Glucagon (Glucagen) 1 mg Q15M PRN IM DECREASED GLUCOSE; Start 09/28/16 at 09:00 Glucose (Glutose) 15 gm Q15M PRN BUCCAL DECREASED GLUCOSE; Start 09/28/16 at 09: 00 Insulin Aspart (Novolog Insulin Pen) NOVOLOG *MILD* ALGORI... Q6 SC Last administered on 10/06/16 11:57; Admin Dose 2 UNIT; Start 09/29/16 at 00:00 IV Flush (NS 10 ml) 10 ml PRN PRN IV FLUSH LINE; Start 09/29/16 at 20:30 Epoetin Jeffry 6000 units 6,000 units [id number]@17 SC Last administered on 19:06; Admin Dose 6,000 UNITS; Start 10/01/16 at 17:00 Vancomycin HCl/ Sodium Chloride (Vancocin/NS) 250 ml @ 83.333 mls/ hr 18 IVPB ; Start 10/06/16 at 18:00; Stop 10/07/16 at 05:59 KRISTOPHER SOTO Oct 06, 2016 13:45
[2016-10-06 13:49] LABS: BURR CELLS FEW; PLATELET ESTIMATE PLT APPEAR DECREASED; POIKILOCYTOSIS 1+
--- NOTE | 2016-10-06 17:05 | CONS ---
Date/Time of Note Date/Time of Note DATE: 10/06/16 TIME: 16:59 Assessment/Plan Assessment/Plan Chief Complaint/Hosp Course ID PROGRESS NOTE TOTAL ABX DAY # Vanco IV + Amikacin 24H INTERVAL SUMMARY * Noncommunicative, VSS, NAD, chronic debilitated obese M, * Afebrile, WBC normalized PLT and anemia stable * Trach, peg, Left IJ TLC, multiple decubs noted and photos reviewed * 10/04/16 BCX (+)GNR pending final ID C&SColl: 10/04/16-1440 Rcvd: 10/04/16- 1499 Source: BLOOD Sp Descrip: BLOOD CULTURE Preliminary BCULT GRAM BOTTLE 1 Gram negative rods . seen on gram stain of the broth Organism 1 GRAM NEGATIVE REBEKAH Thanh: 09/21/16 Rcvd: 09/21/16 Source: TROCHANTER Sp Descrip: Microbiology WOUND CULTURE Preliminary Organism 1 KLEB PNEUMONIAE CARBAPENEMASE QUANTITY 2+ . MULTI DRUG RESISTANT ORGANISM Organism 2 NON LACTOSE FERMENTING GNR QUANTITY 3+ Organism 3 MORGANELLA MORGANII SSP MORG. QUANTITY 2+ KLEB PNEUM MORMOSP M.I.C. RX M.I.C. RX --------- --- --------- --- AMIKACIN 32 I <=2 S CEFAZOLIN R CEFEPIME >=64 R <=1 S CEFOTAXIME R R CIPROFLOXACIN >=4 R >=4 R GENTAMICIN >=16 R 8 I IMIPENEM >=16 R 4 R LEVOFLOXACIN >=8 R >=8 R TOBRAMYCIN >=16 R 2 S TRIMETHOPRIM/SULFAMETHOXAZOLE >=320 R >=320 R PIPERACILLIN/TAZOBACTAM >=128 R PHYSICAL EXAMINATION: GENERAL: VSS, NAD HEENT: Unremarkable NECK: Trach-> Vent secure CHEST: Rise symmetrical - Course BS HEART: RRR ABDOMEN: Soft, EXTREMITIES: Warm, ID ASSESSMENT: 56 yo M w/multiple co-morbid conditions admit with: 1. Sepsis w/10/04/16 GNR (+)BCx -> probable line sepsis PICC vs PermCath 2. Hypovolemia w/hypotension due to gastrointestinal bleeding due to thrombocytopenia => RESOLVED 3. High output congestive heart failure. 4. Stage IV chronic kidney disease => HD 5. Pancytopenia. 6. Vent-dependent respiratory failure. 7. Dysphagia/old cerebrovascular accident. 8. Decubitus ulcers, bilateral trochanteric, heels, back * 09/21/16 TROCHANTER WOUND CX: WOUND CULTURE Preliminary Organism 1 KLEB PNEUMONIAE CARBAPENEMASE QUANTITY 2+ . MULTI DRUG RESISTANT ORGANISM Organism 2 NON LACTOSE FERMENTING GNR QUANTITY 3+ Organism 3 MORGANELLA MORGANII SSP MORG. QUANTITY 2+ 9. Seizure disorder. 10. Gout. (-)MRSA Nares INVASIVES: *Trach, Peg, FC, L-IJ TLC ABX ALLERGIES: PCN, Macrolides, Erythromycin base CURRENT ABX: Vanco IV + Amikacin ID RECOMMENDATIONS: Continue current ABX, non-aggressive care DC PICC His wounds are growing CRKP with is MDRO and best treated topically . . Problems: Consultation Date/Type/Reason Admit Date/Time Sep 06, 2016 at 22:27 Initial Consult Date 09/07/16 Type of Consultation: ID Referring Provider: FREDDY COELLO MD Exam/Review of Systems Vital Signs Vitals Vital Signs Date Time Temp Pulse Resp B/P Pulse Ox O2 Delivery O2 Flow Rate FiO2 10/06/16 16:30 104 10/06/16 15:36 98.8 18 144/59 95 10/06/16 15:35 40 10/05/16 21:21 Mechanical Ventilator Intake and Output 10/05/16 10/05/16 10/06/16 15:00 23:00 07:00 Intake Total 680 ml 400 ml Output Total 100 ml 50 ml Balance 580 ml 350 ml Results Result Diagram: 10/06/1652010/06/16520 Results 24 hrs Laboratory Tests Test 10/05/16 18:58 10/06/16 00:05 10/06/16 05:21 10/06/16 06:04 Bedside Glucose 154 174 186 Anion Gap 13 Basophils # 0.0 Basophils % 0.2 Blood Urea Nitrogen 71 H Calcium Level 9.3 Carbon Dioxide Level 25 Chloride Level 104 Creatinine 1.64 H Eosinophils # 0.1 Eosinophils % 1.3 Glucose Level 163 # Hematocrit 24.6 L Hemoglobin 8.1 L Lymphocytes # 0.3 L Lymphocytes % 5.3 L Mean Corpuscular Hemoglobin 29.5 Mean Corpuscular Hemoglobin Concent 32.9 Mean Corpuscular Volume 89.5 Mean Platelet Volume 13.1 H Monocytes # 0.2 L Monocytes % 4.0 Neutrophils # 4.9 Neutrophils % 88.5 H Nucleated Red Blood Cells # 0.0 Nucleated Red Blood Cells % 0.0 Platelet Count 43 #L Platelet Estimate PLT APPEAR DECREASED Poikilocytosis 1+ Potassium Level 3.9 Random Vancomycin Level 15.2 Red Blood Count 2.75 L Red Cell Distribution Width 18.2 H Sodium Level 138 Toxic Granulation 1+ White Blood Count 5.5 # Test 10/06/16 11:53 Bedside Glucose 201 Medications Medications Current Medications Acetaminophen (Tylenol Liquid) 640 mg Q6H PRN GTB PAIN OR TEMP ABOVE 38C Last administered on 10/04/16 05:44; Admin Dose 640 MG; Start 09/06/16 at 22:30 Allopurinol (Zyloprim) 200 mg DAILY GTB Last administered on 10/06/16 08:51; Admin Dose 200 MG; Start 09/07/16 at 09:00 Ascorbic Acid (Vitamin C) 500 mg BID GTB Last administered on 10/06/16 08:51; Admin Dose 500 MG; Start 09/07/16 at 09:00 Calcitriol (Rocaltrol) 0.25 mcg DAILY GTB Last administered on 10/06/16 08:51 ; Admin Dose 0.25 MCG; Start 09/07/16 at 09:00 Chlorhexidine Gluconate (Peridex) 15 ml BID MM Last administered on 10/06/16 08:50; Admin Dose 15 ML; Start 09/07/16 at 09:00 Famotidine (Pepcid) 40 mg DAILY GTB Last administered on 10/06/16 08:51; Admin Dose 40 MG; Start 09/07/16 at 09:00 Lansoprazole (Prevacid) 30 mg BID@,18 GTB Last administered on 10/06/16 06: 05; Admin Dose 30 MG; Start 09/07/16 at 06:00 Levetiracetam (Keppra Liquid) 500 mg BID GTB Last administered on 10/06/16 08: 50; Admin Dose 500 MG; Start 09/07/16 at 09:00 Metoclopramide HCl (Reglan) 5 mg Q8H PRN GTB NAUSEA AND/OR VOMITING; Start 09/06 at 22:30 Sucralfate (Carafate Susp) 1 gm BID GTB Last administered on 10/06/16 08:50; Admin Dose 1 GM; Start 09/07/16 at 09:00 Ondansetron HCl (Zofran Inj) 4 mg Q6H PRN IV NAUSEA AND/OR VOMITING Last administered on 09/17/16 00:52; Admin Dose 4 MG; Start 09/06/16 at 22:30 Morphine Sulfate (morphine) 2 mg Q4H PRN IV PAIN LEVEL 7-10 Last administered on 09/16/16 20:19; Admin Dose 2 MG; Start 09/06/16 at 22:30 Metoclopramide HCl (Reglan) 5 mg Q6H PRN IV RESIDUALS > 100; Start 09/10/16 at 19:00 Clonidine (Catapres) 0.1 mg Q6H PRN GTB ELEVATED SYSTOLIC BP Last administered on 09/15/16 07:04; Admin Dose 0.1 MG; Start 09/13/16 at 23:00 Hydralazine HCl (Apresoline) 10 mg Q6H PRN IV ELEVATED SYSTOLIC BP Last administered on 09/15/16 02:08; Admin Dose 10 MG; Start 09/15/16 at 01:50 Collagenase (Santyl) 1 applic DAILY TOP Last administered on 10/06/16 08:53; Admin Dose 1 APPLIC; Start 09/18/16 at 09:00 Glycopyrrolate (Robinul) 1 mg Q8 GTB Last administered on 10/06/16 14:39; Admin Dose 1 MG; Start 09/19/16 at 09:30 Amikacin Sulfate AMIKACIN PER PHARMACY NOTE XX ; Start 09/24/16 at 14:00 Sodium Chloride/ Dextrose (Nacl/D10w) 1,019.25 ml @ 50 mls/hr [id number] IV Last administered on 10/06/16 00:08; Admin Dose 50 MLS/HR; Start 09/28/16 at 09:00 Miscellaneous Information 1 ea NOTE XX ; Start 09/28/16 at 09:00 Glucose (Glutose) 15 gm Q15M PRN PO DECREASED GLUCOSE; Start 09/28/16 at 09:00 Glucose (Glutose) 22.5 gm Q15M PRN PO DECREASED GLUCOSE; Start 09/28/16 at 09:00 Dextrose (D50w Syringe) 25 ml Q15M PRN IV DECREASED GLUCOSE Last administered on 09/29/16 18:18; Admin Dose 25 ML; Start 09/28/16 at 09:00 Dextrose (D50w Syringe) 50 ml Q15M PRN IV DECREASED GLUCOSE; Start 09/28/16 at 09:00 Glucagon (Glucagen) 1 mg Q15M PRN IM DECREASED GLUCOSE; Start 09/28/16 at 09:00 Glucose (Glutose) 15 gm Q15M PRN BUCCAL DECREASED GLUCOSE; Start 09/28/16 at 09: 00 Insulin Aspart (Novolog Insulin Pen) NOVOLOG *MILD* ALGORI... Q6 SC Last administered on 10/06/16 11:57; Admin Dose 2 UNIT; Start 09/29/16 at 00:00 IV Flush (NS 10 ml) 10 ml PRN PRN IV FLUSH LINE; Start 09/29/16 at 20:30 Epoetin Jeffry 6000 units 6,000 units MoWeFr@17 SC Last administered on 19:06; Admin Dose 6,000 UNITS; Start 10/01/16 at 17:00 Vancomycin HCl/ Sodium Chloride (Vancocin/NS) 250 ml @ 83.333 mls/ hr 18 IVPB ; Start 10/06/16 at 18:00; Stop 10/07/16 at 05:59 IRINA VARGHESE NP Oct 06, 2016 17:05
[2016-10-06] MEDS ORDERED: VANCOMYCIN 1.25 GM in SOD CHLORIDE 0.9% 250 ML IVPB SCH (18:00)
[2016-10-07] VITALS (23 sets, daily range): BP systolic 99–125; BP diastolic 41–59; PULSE 100–105; RESP 14–17
[2016-10-07] MEDS: INSULIN ASPART [NOVOLOG] 3 ML PEN SC SCH ×4 (00:15→18:23)
[2016-10-07] MEDS: LEVALBUTEROL (HFA) 15 GM INHALER INH SCH ×4 (01:31→20:16)
[2016-10-07] MEDS: IPRATROPIUM (HFA) 12.9 GM INHALER INH SCH ×4 (01:31→20:16)
[2016-10-07 05:58] LABS: ADD SCAN DIFF NO
[2016-10-07 06:10] LABS: ABNORMAL IP MESSAGE 1; BASOPHILS % 0.2 % (0.0-2.0); EOSINOPHILS # 0.1 10^3/ul (0.0-0.5); HEMATOCRIT 22.9 % (42.0-52.0); HEMOGLOBIN 7.6 g/dl (14.0-18.0); LYMPHOCYTES # 0.2 10^3/ul (0.8-2.9); LYMPHOCYTES % 4.2 % (15.0-51.0); MEAN CORPUSCULAR HEMOGLOBIN 29.8 pg (29.0-33.0); MEAN CORPUSCULAR HGB CONC 33.2 g/dl (32.0-37.0); MEAN CORPUSCULAR VOLUME 89.8 fl (82.0-101.0); MEAN PLATELET VOLUME 13.5 fl (7.4-10.4); MONOCYTE # 0.3 10^3/ul (0.3-0.9); MONOCYTES % 6.9 % (0.0-11.0); NEUTROPHIL # 4.2 10^3/ul (1.6-7.5); NEUTROPHILS % 87.1 % (39.0-77.0); RED BLOOD COUNT 2.55 10^6/ul (4.70-6.10); RED CELL DISTRIBUTION WIDTH 18.1 % (11.5-14.5); WHITE BLOOD COUNT 4.8 10^3/ul (4.8-10.8)
[2016-10-07 06:15] LABS: PLATELET COUNT 6 10^3/UL (140-415)
[2016-10-07 06:23] LABS: POTASSIUM 3.6 mmol/L (3.5-5.1)
[2016-10-07 06:25] LABS: CREATININE 1.3 mg/dl (0.61-1.24)
[2016-10-07 06:26] LABS: CALCIUM 8.2 mg/dl (8.4-10.2)
[2016-10-07] MEDS: LANSOPRAZOLE 30 MG CAP GTB SCH ×2 (06:58→17:52)
[2016-10-07] MEDS: GLYCOPYRROLATE 1 MG TAB GTB SCH ×3 (06:58→22:45)
[2016-10-07 07:25] LABS: ADD SCAN DIFF NO
[2016-10-07 07:31] LABS: ABNORMAL IP MESSAGE 1; HEMATOCRIT 23.4 % (42.0-52.0); HEMOGLOBIN 7.9 g/dl (14.0-18.0); MEAN CORPUSCULAR HEMOGLOBIN 30.2 pg (29.0-33.0); MEAN CORPUSCULAR HGB CONC 33.8 g/dl (32.0-37.0); MEAN CORPUSCULAR VOLUME 89.3 fl (82.0-101.0); MEAN PLATELET VOLUME 12.7 fl (7.4-10.4); RED BLOOD COUNT 2.62 10^6/ul (4.70-6.10); WHITE BLOOD COUNT 4.8 10^3/ul (4.8-10.8)
[2016-10-07 07:45] LABS: PLATELET COUNT 8 10^3/UL (140-415)
[2016-10-07] MEDS: SUCRALFATE (100 MG/ML) 10ML CUP GTB SCH ×2 (09:50→22:45)
[2016-10-07] MEDS: CHLORHEXIDINE GLUCONATE 15 ML UD CUP MM SCH ×2 (09:50→22:45)
[2016-10-07] MEDS: ALLOPURINOL 100 MG TAB GTB SCH (09:51)
[2016-10-07] MEDS: COLLAGENASE 30 GM TUBE TOP SCH (09:51)
[2016-10-07] MEDS: ASCORBIC ACID 500 MG TAB GTB SCH ×2 (09:51→22:46)
[2016-10-07] MEDS: CALCITRIOL 0.25 MCG CAP GTB SCH (09:51)
[2016-10-07] MEDS: FAMOTIDINE 20 MG TAB GTB SCH (09:51)
[2016-10-07] MEDS: SEVELAMER CARBONATE 2.4 GM PKT GTB SCH ×3 (09:56→17:52)
[2016-10-07] MEDS: LEVETIRACETAM (100 MG/ML) 5ML CUP GTB SCH ×2 (09:56→22:45)
[2016-10-07 11:06] LABS: EOSINOPHILS # 0.1 10^3/ul (0.0-0.5); LYMPHOCYTES # 0.1 10^3/ul (0.8-2.9); MONOCYTE # 0.1 10^3/ul (0.3-0.9); NEUTROPHIL # 2.8 10^3/ul (1.6-7.5); PLATELET ESTIMATE PLT APPEAR
[2016-10-07] MEDS: AMIKACIN 400 MG in SOD CHLORIDE 0.9% 100 ML IVPB SCH (14:50)
--- NOTE | 2016-10-07 14:53 | PN ---
Date/Time of Note Date/Time of Note DATE: 10/07/16 TIME: 14:46 Assessment/Plan VTE Prophylaxis VTE Prophylaxis Intervention: other Lines/Catheters IV [facility] Type ([facility] PICC Line Urinary Cath still in place: Yes Assessment/Plan Assessment/Plan - GNR bacteremia, will d/c PICC. - Severe anemia 2 GI bleed. Continue to monitor hemoglobin and hematocrit. Dr. Singh is following in gastroenterology consultation. Dr. Madyson sanchez is following in hematology consultation. -Hypovolemic shock, resolved. - Acute kidney failure on chronic kidney disease. Continue to monitor BUN and creatinine. Dr. Mk Purdy is following in nephrology consultation. Patient with worsening renal function. Started on Hemodialysis during this admission. - Pancytopenia. - Ventilator-dependent respiratory failure. Dr. Aragon is following in pulmonology consultation. Continue ventilator support, bronchodilators. - HCAP on admission. Status post treatment. - Dysphagia with PEG. - History of seizure disorder. Continue patient on Keppra. - Diastolic dysfunction congestive heart failure with preserved ejection fraction of 60%. - S/p sepsis. Dr. Guy is following patient in infectious disease consultation. - Status post cerebrovascular accident, status post craniotomy. - Mental retardation. - Trach site Bleeding - low platelets, will get platelet infusion. stable at present - monitor bleeding - per pulmonary Continue Protonix for peptic ulcer disease prophylaxis. Further recommendations based on clinical course. Plan of care discussed with Dr. Mcelroy. Subjective 24 Hr Interval Summary Subjective hx not possible: pt non-verbal Constitutional: requiring IVF, requiring O2 Exam/Review of Systems Vital Signs Vitals Vital Signs Date Time Temp Pulse Resp B/P Pulse Ox O2 Delivery O2 Flow Rate FiO2 10/07/16 13:35 104 14 100 40 10/07/16 07:49 99.0 107/41 10/05/16 21:21 Mechanical Ventilator Intake and Output 10/06/16 10/06/16 10/07/16 15:00 23:00 07:00 Intake Total 500 ml 930 ml 400 ml Output Total 2000 ml 50 ml Balance -1500 ml 880 ml 400 ml Exam Constitutional: non-verbal Head: atraumatic Eyes: nl sclera ENMT: nl external ears & nose Neck: non-tender Respiratory: diminished breath sounds Cardiovascular: nl pulses Gastrointestinal: non-tender, other, soft Musculoskeletal: muscle weakness Neurological: unresponsive Skin: other Lymph: nontender Results Result Diagram: 10/07/16 0700 10/07/16 0535 Results 24 hrs Laboratory Tests Test 10/06/16 17:40 10/07/16 00:09 10/07/16 05:35 10/07/16 06:40 Bedside Glucose 172 154 196 Anion Gap 14 Basophils # 0.0 Basophils % 0.2 Blood Urea Nitrogen 60 H Calcium Level 8.2 L Carbon Dioxide Level 25 Chloride Level 99 Creatinine 1.30 H Eosinophils # 0.1 Eosinophils % 1.0 Glucose Level 481 #*H Hematocrit 22.9 L Hemoglobin 7.6 L Lymphocytes # 0.2 L Lymphocytes % 4.2 L Mean Corpuscular Hemoglobin 29.8 Mean Corpuscular Hemoglobin Concent 33.2 Mean Corpuscular Volume 89.8 Mean Platelet Volume 13.5 H Monocytes # 0.3 Monocytes % 6.9 Neutrophils # 4.2 Neutrophils % 87.1 H Nucleated Red Blood Cells # 0.0 Nucleated Red Blood Cells % 0.0 Platelet Count 6 #*L Potassium Level 3.6 Red Blood Count 2.55 L Red Cell Distribution Width 18.1 H Sodium Level 134 L White Blood Count 4.8 Test 10/07/16 07:00 10/07/16 11:38 Band Neutrophils % 32.0 H Basophils # 0.0 Basophils % 1.0 Eosinophils # 0.1 Eosinophils % 2.0 Hematocrit 23.4 L Hemoglobin 7.9 L Lymphocytes # 0.1 L Lymphocytes % 3.0 L Mean Corpuscular Hemoglobin 30.2 Mean Corpuscular Hemoglobin Concent 33.8 Mean Corpuscular Volume 89.3 Mean Platelet Volume 12.7 H Monocytes # 0.1 L Monocytes % 3.0 Myelocytes # 0.0 Myelocytes % 1.0 H Neutrophils # 2.8 Neutrophils % 58.0 Platelet Count 8 #*L Platelet Estimate PLT APPEAR Red Blood Count 2.62 L Red Cell Distribution Width 18.0 H White Blood Count 4.8 Bedside Glucose 212 Medications Medications Current Medications Acetaminophen (Tylenol Liquid) 640 mg Q6H PRN GTB PAIN OR TEMP ABOVE 38C Last administered on 10/04/16 05:44; Admin Dose 640 MG; Start 09/06/16 at 22:30 Allopurinol (Zyloprim) 200 mg DAILY GTB Last administered on 10/07/16 09:51; Admin Dose 200 MG; Start 09/07/16 at 09:00 Ascorbic Acid (Vitamin C) 500 mg BID GTB Last administered on 10/07/16 09:51; Admin Dose 500 MG; Start 09/07/16 at 09:00 Calcitriol (Rocaltrol) 0.25 mcg DAILY GTB Last administered on 10/07/16 09:51 ; Admin Dose 0.25 MCG; Start 09/07/16 at 09:00 Chlorhexidine Gluconate (Peridex) 15 ml BID MM Last administered on 10/07/16 09:50; Admin Dose 15 ML; Start 09/07/16 at 09:00 Famotidine (Pepcid) 40 mg DAILY GTB Last administered on 10/07/16 09:51; Admin Dose 40 MG; Start 09/07/16 at 09:00 Lansoprazole (Prevacid) 30 mg BID@,18 GTB Last administered on 10/07/16 06: 58; Admin Dose 30 MG; Start 09/07/16 at 06:00 Levetiracetam (Keppra Liquid) 500 mg BID GTB Last administered on 10/07/16 09: 56; Admin Dose 500 MG; Start 09/07/16 at 09:00 Metoclopramide HCl (Reglan) 5 mg Q8H PRN GTB NAUSEA AND/OR VOMITING; Start 09/06 at 22:30 Sucralfate (Carafate Susp) 1 gm BID GTB Last administered on 10/07/16 09:50; Admin Dose 1 GM; Start 09/07/16 at 09:00 Ondansetron HCl (Zofran Inj) 4 mg Q6H PRN IV NAUSEA AND/OR VOMITING Last administered on 09/17/16 00:52; Admin Dose 4 MG; Start 09/06/16 at 22:30 Morphine Sulfate (morphine) 2 mg Q4H PRN IV PAIN LEVEL 7-10 Last administered on 09/16/16 20:19; Admin Dose 2 MG; Start 09/06/16 at 22:30 Metoclopramide HCl (Reglan) 5 mg Q6H PRN IV RESIDUALS > 100; Start 09/10/16 at 19:00 Clonidine (Catapres) 0.1 mg Q6H PRN GTB ELEVATED SYSTOLIC BP Last administered on 09/15/16 07:04; Admin Dose 0.1 MG; Start 09/13/16 at 23:00 Hydralazine HCl (Apresoline) 10 mg Q6H PRN IV ELEVATED SYSTOLIC BP Last administered on 09/15/16 02:08; Admin Dose 10 MG; Start 09/15/16 at 01:50 Collagenase (Santyl) 1 applic DAILY TOP Last administered on 10/07/16 09:51; Admin Dose 1 APPLIC; Start 09/18/16 at 09:00 Glycopyrrolate (Robinul) 1 mg Q8 GTB Last administered on 10/07/16 06:58; Admin Dose 1 MG; Start 09/19/16 at 09:30 Amikacin Sulfate AMIKACIN PER PHARMACY NOTE XX ; Start 09/24/16 at 14:00 Sodium Chloride/ Dextrose (Nacl/D10w) 1,019.25 ml @ 50 mls/hr [id number] IV Last administered on 10/06/16 21:59; Admin Dose 50 MLS/HR; Start 09/28/16 at 09:00 Miscellaneous Information 1 ea NOTE XX ; Start 09/28/16 at 09:00 Glucose (Glutose) 15 gm Q15M PRN PO DECREASED GLUCOSE; Start 09/28/16 at 09:00 Glucose (Glutose) 22.5 gm Q15M PRN PO DECREASED GLUCOSE; Start 09/28/16 at 09:00 Dextrose (D50w Syringe) 25 ml Q15M PRN IV DECREASED GLUCOSE Last administered on 09/29/16 18:18; Admin Dose 25 ML; Start 09/28/16 at 09:00 Dextrose (D50w Syringe) 50 ml Q15M PRN IV DECREASED GLUCOSE; Start 09/28/16 at 09:00 Glucagon (Glucagen) 1 mg Q15M PRN IM DECREASED GLUCOSE; Start 09/28/16 at 09:00 Glucose (Glutose) 15 gm Q15M PRN BUCCAL DECREASED GLUCOSE; Start 09/28/16 at 09: 00 Insulin Aspart (Novolog Insulin Pen) NOVOLOG *MILD* ALGORI... Q6 SC Last administered on 10/07/16 11:45; Admin Dose 2 UNIT; Start 09/29/16 at 00:00 IV Flush (NS 10 ml) 10 ml PRN PRN IV FLUSH LINE; Start 09/29/16 at 20:30 Epoetin Jeffry (Epogen (Esrd)) 6,000 units MoWeFr@17 SC Last administered on 10/05t 19:06; Admin Dose 6,000 UNITS; Start 10/01/16 at 17:00 KRISTOPHER SOTO Oct 07, 2016 14:52
--- NOTE | 2016-10-07 15:37 | PN ---
Date/Time of Note Date/Time of Note DATE: 10/07/16 TIME: 15:35 Assessment/Plan VTE Prophylaxis VTE Prophylaxis Intervention: contraindicated VTE Contraindication Reason: heparin induced thrombocytopenia Lines/Catheters IV Catheter Type (from [facility]): PICC Line Central line still needed: Yes Urinary Cath still in place: Yes Reason Cath still needed: urinary retention Assessment/Plan Assessment/Plan 56 year old male with mental retardation, ventilator dependent respiratory failure, dysphagia with PEG, history of seizure disorder on Keppra, diastolic dysfunction congestive heart failure with preserved ejection fraction of 60%, status post cerebrovascular accident, status post craniotomy, acute on chronic kidney failure now on dialysis, with GI bleed with Dr. Singh following, hypovolemic and septic shock with multiple decubitus with wound culture growing multi-drug resistant organisms on Amikacin. Hematology was consulted for anemia and thrombocytopenia. # Thrombocytopenia, with platelets of 8 on admission, unclear platelet count at baseline. Now platelets at 43, after transfusion has dropped again to 9 and transfuse 1 unit today because of bleeding from trach. Likely secondary to sepsis, possibly DIC. 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 - Possible contribution due to sepsis as well particularly in the setting of recent fever, and now with GNR bacteremia. DIC panel may suggest component of DIC with prolongs coags and elevated D dimer with rare schistocytes on smear though fibrin split products not elevated. HIV and Hep panel negative. Continue to monitor platelet count - Peripheral smear reviewed by pathology and confirms decreased platelet count, no microangiopathic changes, rare schistocytes, occasional metamyelocytes, mild bandemia, and no blasts - Abdominal US was technically limited study due to patient's inability to cooperate demonstrating mild hepatomegaly with a slightly coarsened echotexture which may indicate steatosis/hepatic cellular disease. # Normocytic anemia, likely multifactorial due to GI bleed, chronic kidney disease, likely chronic inflammation - Iron panel suggests anemia of chronic inflammation, high ferritin as expected. ; B12/folate WNL, LDH not elevated, retic count inappropriately low - Continue epo. hgb 8-9 after transfusion. Subjective 24 Hr Interval Summary Free Text/Dictation noted overnight events with trach change Subjective hx not possible: pt non-verbal, pt critical status Exam/Review of Systems Vital Signs Vitals Vital Signs Date Time Temp Pulse Resp B/P Pulse Ox O2 Delivery O2 Flow Rate FiO2 10/07/16 13:35 104 14 100 40 10/07/16 07:49 99.0 107/41 10/05/16 21:21 Mechanical Ventilator Intake and Output 10/06/16 10/06/16 10/07/16 15:00 23:00 07:00 Intake Total 500 ml 930 ml 400 ml Output Total 2000 ml 50 ml Balance -1500 ml 880 ml 400 ml Exam Constitutional: frail, non-verbal Psych: depression Respiratory: normal air movement Results Result Diagram: 10/07/16 0700 10/07/16 0535 Results 24 hrs Laboratory Tests Test 10/06/16 17:40 10/07/16 00:09 10/07/16 05:35 10/07/16 06:40 Bedside Glucose 172 154 196 Anion Gap 14 Basophils # 0.0 Basophils % 0.2 Blood Urea Nitrogen 60 H Calcium Level 8.2 L Carbon Dioxide Level 25 Chloride Level 99 Creatinine 1.30 H Eosinophils # 0.1 Eosinophils % 1.0 Glucose Level 481 #*H Hematocrit 22.9 L Hemoglobin 7.6 L Lymphocytes # 0.2 L Lymphocytes % 4.2 L Mean Corpuscular Hemoglobin 29.8 Mean Corpuscular Hemoglobin Concent 33.2 Mean Corpuscular Volume 89.8 Mean Platelet Volume 13.5 H Monocytes # 0.3 Monocytes % 6.9 Neutrophils # 4.2 Neutrophils % 87.1 H Nucleated Red Blood Cells # 0.0 Nucleated Red Blood Cells % 0.0 Platelet Count 6 #*L Potassium Level 3.6 Red Blood Count 2.55 L Red Cell Distribution Width 18.1 H Sodium Level 134 L White Blood Count 4.8 Test 10/07/16 07:00 10/07/16 11:38 Band Neutrophils % 32.0 H Basophils # 0.0 Basophils % 1.0 Eosinophils # 0.1 Eosinophils % 2.0 Hematocrit 23.4 L Hemoglobin 7.9 L Lymphocytes # 0.1 L Lymphocytes % 3.0 L Mean Corpuscular Hemoglobin 30.2 Mean Corpuscular Hemoglobin Concent 33.8 Mean Corpuscular Volume 89.3 Mean Platelet Volume 12.7 H Monocytes # 0.1 L Monocytes % 3.0 Myelocytes # 0.0 Myelocytes % 1.0 H Neutrophils # 2.8 Neutrophils % 58.0 Platelet Count 8 #*L Platelet Estimate PLT APPEAR Red Blood Count 2.62 L Red Cell Distribution Width 18.0 H White Blood Count 4.8 Bedside Glucose 212 Medications Medications Current Medications Acetaminophen (Tylenol Liquid) 640 mg Q6H PRN GTB PAIN OR TEMP ABOVE 38C Last administered on 10/04/16 05:44; Admin Dose 640 MG; Start 09/06/16 at 22:30 Allopurinol (Zyloprim) 200 mg DAILY GTB Last administered on 10/07/16 09:51; Admin Dose 200 MG; Start 09/07/16 at 09:00 Ascorbic Acid (Vitamin C) 500 mg BID GTB Last administered on 10/07/16 09:51; Admin Dose 500 MG; Start 09/07/16 at 09:00 Calcitriol (Rocaltrol) 0.25 mcg DAILY GTB Last administered on 10/07/16 09:51 ; Admin Dose 0.25 MCG; Start 09/07/16 at 09:00 Chlorhexidine Gluconate (Peridex) 15 ml BID MM Last administered on 10/07/16 09:50; Admin Dose 15 ML; Start 09/07/16 at 09:00 Famotidine (Pepcid) 40 mg DAILY GTB Last administered on 10/07/16 09:51; Admin Dose 40 MG; Start 09/07/16 at 09:00 Lansoprazole (Prevacid) 30 mg BID@,18 GTB Last administered on 10/07/16 06: 58; Admin Dose 30 MG; Start 09/07/16 at 06:00 Levetiracetam (Keppra Liquid) 500 mg BID GTB Last administered on 10/07/16 09: 56; Admin Dose 500 MG; Start 09/07/16 at 09:00 Metoclopramide HCl (Reglan) 5 mg Q8H PRN GTB NAUSEA AND/OR VOMITING; Start 09/06 at 22:30 Sucralfate (Carafate Susp) 1 gm BID GTB Last administered on 10/07/16 09:50; Admin Dose 1 GM; Start 09/07/16 at 09:00 Ondansetron HCl (Zofran Inj) 4 mg Q6H PRN IV NAUSEA AND/OR VOMITING Last administered on 09/17/16 00:52; Admin Dose 4 MG; Start 09/06/16 at 22:30 Morphine Sulfate (morphine) 2 mg Q4H PRN IV PAIN LEVEL 7-10 Last administered on 09/16/16 20:19; Admin Dose 2 MG; Start 09/06/16 at 22:30 Metoclopramide HCl (Reglan) 5 mg Q6H PRN IV RESIDUALS > 100; Start 09/10/16 at 19:00 Clonidine (Catapres) 0.1 mg Q6H PRN GTB ELEVATED SYSTOLIC BP Last administered on 09/15/16 07:04; Admin Dose 0.1 MG; Start 09/13/16 at 23:00 Hydralazine HCl (Apresoline) 10 mg Q6H PRN IV ELEVATED SYSTOLIC BP Last administered on 09/15/16 02:08; Admin Dose 10 MG; Start 09/15/16 at 01:50 Collagenase (Santyl) 1 applic DAILY TOP Last administered on 10/07/16 09:51; Admin Dose 1 APPLIC; Start 09/18/16 at 09:00 Glycopyrrolate (Robinul) 1 mg Q8 GTB Last administered on 10/07/16 14:55; Admin Dose 1 MG; Start 09/19/16 at 09:30 Amikacin Sulfate AMIKACIN PER PHARMACY NOTE XX ; Start 09/24/16 at 14:00 Sodium Chloride/ Dextrose (Nacl/D10w) 1,019.25 ml @ 50 mls/hr [id number] IV Last administered on 10/06/16 21:59; Admin Dose 50 MLS/HR; Start 09/28/16 at 09:00 Miscellaneous Information 1 ea NOTE XX ; Start 09/28/16 at 09:00 Glucose (Glutose) 15 gm Q15M PRN PO DECREASED GLUCOSE; Start 09/28/16 at 09:00 Glucose (Glutose) 22.5 gm Q15M PRN PO DECREASED GLUCOSE; Start 09/28/16 at 09:00 Dextrose (D50w Syringe) 25 ml Q15M PRN IV DECREASED GLUCOSE Last administered on 09/29/16 18:18; Admin Dose 25 ML; Start 09/28/16 at 09:00 Dextrose (D50w Syringe) 50 ml Q15M PRN IV DECREASED GLUCOSE; Start 09/28/16 at 09:00 Glucagon (Glucagen) 1 mg Q15M PRN IM DECREASED GLUCOSE; Start 09/28/16 at 09:00 Glucose (Glutose) 15 gm Q15M PRN BUCCAL DECREASED GLUCOSE; Start 09/28/16 at 09: 00 Insulin Aspart (Novolog Insulin Pen) NOVOLOG *MILD* ALGORI... Q6 SC Last administered on 10/07/16 11:45; Admin Dose 2 UNIT; Start 09/29/16 at 00:00 IV Flush (NS 10 ml) 10 ml PRN PRN IV FLUSH LINE; Start 09/29/16 at 20:30 Epoetin Jeffry (Epogen (Esrd)) 6,000 units MoWeFr@17 SC Last administered on 10/05 19:06; Admin Dose 6,000 UNITS; Start 10/01/16 at 17:00 NATALI PHILLIPS MD Oct 07, 2016 15:36
--- NOTE | 2016-10-07 15:42 | RADRPT ---
PROCEDURE: XR Chest. CLINICAL INDICATION: Shortness of breath. TECHNIQUE: Single frontal view. COMPARISON: 10/04/2016. FINDINGS: The tracheostomy tube, left arm PICC line, and tunneled right internal jugular vein dialysis cathete r remain in satisfactory position. Pulmonary edema is unchanged. Atelectasis at the lung bases and low lung volumes are unchanged. The heart is enlarged. There are small bilateral pleural effusions. There is no pneumothorax. IMPRESSION: 1. No change from 10/04/2016. RPTAT: QQ .Yoan George MD, MD Date Time Electronically viewed and signed by .Yoan George MD, MD on 10/07/2016 15:41 .R/
--- NOTE | 2016-10-07 16:05 | CONS ---
Date/Time of Note Date/Time of Note DATE: 10/07/16 TIME: 15:26 Assessment/Plan Assessment/Plan Chief Complaint/Hosp Course ID PROGRESS NOTE TOTAL ABX DAY # Vanco IV + Amikacin + Cipro #1 24H INTERVAL SUMMARY * Patient with multiple chronic co-morbidities - multiple chronic septic issues requiring ABX for MDRO * He is bleeding from Trach per RTx and NOW with severe thrombocytopenia PLT 8, 000 w/possible ABX Rx contributing to cytopenia; nevertheless he recurrent septic conditions require ongoing ABX Rx. * 10/04/16 BCX (+) GNR =>CHRYSEOBACTERIUM MENINGOSEPTI * Noncommunicative, VSS, NAD, chronic debilitated obese M, Afebrile, WBC normalized * Trach, peg, Left IJ TLC, multiple decubs noted and photos reviewed * 10/04/16 BCX (+)GNR pending final ID C&SColl: 10/04/16 Rcvd: [id number]/04/[id number] Thanh: 10/04/16 Rcvd: 10/04/16 Source: BLOOD Sp Descrip: Microbiology BLOOD CULTURE Final BCULT GRAM BOTTLE 1 Gram negative rods . 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 No definitive guidelines for susceptibility testing. Potentially active agents include clindamycin, rifampin, ciprofloxacin, bactrim, and vancomycin. Thanh: 09/21/16 Rcvd: 09/21/16 Source: TROCHANTER Sp Descrip: Microbiology WOUND CULTURE Preliminary Organism 1 KLEB PNEUMONIAE CARBAPENEMASE QUANTITY 2+ . MULTI DRUG RESISTANT ORGANISM Organism 2 NON LACTOSE FERMENTING GNR QUANTITY 3+ Organism 3 MORGANELLA MORGANII SSP MORG. QUANTITY 2+ KLEB PNEUM MORMOSP M.I.C. RX M.I.C. RX --------- --- --------- --- AMIKACIN 32 I <=2 S CEFAZOLIN R CEFEPIME >=64 R <=1 S CEFOTAXIME R R CIPROFLOXACIN >=4 R >=4 R GENTAMICIN >=16 R 8 I IMIPENEM >=16 R 4 R LEVOFLOXACIN >=8 R >=8 R TOBRAMYCIN >=16 R 2 S TRIMETHOPRIM/SULFAMETHOXAZOLE >=320 R >=320 R PIPERACILLIN/TAZOBACTAM >=128 R PHYSICAL EXAMINATION: GENERAL: VSS, NAD HEENT: Unremarkable NECK: Trach-> Vent secure CHEST: Rise symmetrical - Course BS HEART: RRR ABDOMEN: Soft, EXTREMITIES: Warm, ID ASSESSMENT: 56 yo M w/multiple co-morbid conditions admit with: 1. 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 Hypovolemia w/hypotension due to gastrointestinal bleeding due to thrombocytopenia => RESOLVED 3. High output congestive heart failure. 4. Stage IV chronic kidney disease => HD 5. Pancytopenia w/severe thrombocytopenia * (+)Trach bleeding 10/06/16 6. Vent-dependent respiratory failure. 7. Dysphagia/old cerebrovascular accident. 8. Decubitus ulcers, bilateral trochanteric, heels, back * 09/21/16 TROCHANTER WOUND CX: WOUND CULTURE Preliminary Organism 1 KLEB PNEUMONIAE CARBAPENEMASE QUANTITY 2+ . MULTI DRUG RESISTANT ORGANISM Organism 2 NON LACTOSE FERMENTING GNR QUANTITY 3+ Organism 3 MORGANELLA MORGANII SSP MORG. QUANTITY 2+ 9. Seizure disorder. 10. Gout. (-)MRSA Nares INVASIVES: *Trach, Peg, FC, L-IJ TLC ABX ALLERGIES: PCN, Macrolides, Erythromycin base CURRENT ABX: Vanco IV + Amikacin ID RECOMMENDATIONS: * => NOTE: Continued ABX coverage for his multiple chronic recurrent septic issues will not be sufficient to reverse his poor long-term prognosis and is clearly contributing to his complex ongoing sepsis due to emerging MDRO which are difficult to treat. * Ethical dilemma persists regarding RISK vs BENEFIT of ABX use in presence of multi-organ failure, with patient now bleeding from Trach + recurrent severe thrombocytopenia @ 8,000. Pt requires continuation of current ABX + addition of Cipro == all ABX can contribute to further thrombocytopenia. 1. 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 This GNR bacteria is RESISTENT to Colistin IV/Carbapenems/ Aminoglycosides/Tygacil and is best treated with Vanco IV + additional ABX such as Cipro and/or Rifampin. This is a significant emerging hospital acquired pathogen found in patient's with (+)risk factors of (+HD as it is Hydrophillic and colonizes sinks, respiratory, HD equipment. This bacteria produces opportunistic biofilm on invasive HC catheters. 2. Continue Amikacin and Vanco IV + Add Cipro IV towards goal of optimal ABX Rx for this unusual GNR pathogen resistant to usual GNR ABX. 3. His wounds are growing CRKP with is MDRO and best treated topically [email or web address] Elizabethkingia meningoseptica: an unusual cause for septicaemia Bobby Emanuel,1 Anderson Marquis,1 Judith Bartletta2 and Radha Cuellart1 Correspondence:Bobby Emanuel/ Received 24 May 2014 Accepted 10 July 2014 1Department of Microbiology, [facility] and [facility], [address]NR, [facility] Infection with E. meningoseptica isclinically important as the organism is intrinsically resistant to multiple antibiotics, such as b-lactams, aminoglycosides,tetracycline, tigecycline, colistin, chloramphenicol and carbapenems (Dewey et al., 1997). However, it is susceptible to the agents used to treat Gram-positive bacteria: rifampicin, ciprofloxacin, vancomycin and trimethoprimsulfamethoxazole. Yet adequate treatment for this organism has not been outlined. Vancomycin alone or in combination with other agents, which include rifampicin, has in the past been successful in treatment, but its efficacy has been questioned by recent studies (Charlotte, 2011; Miguelangel, 2011). Additional LITERATURE REVIEW [facility]. 2013 Apr-Jun; 2(4): 745628. doi: [id number] PMCID: [id number] Elizabethkingia meningoseptica bacteremia in immunocompromised hosts: The first case series from [facility] Drummond K. Priyadarshini, Carmelo Emery,1 Leana Edward,1 and Elvia Edwarda2 Conclusion: In our study, central line was the commonest risk factor for E. meningosepticum bacteremia, although a multivariate analysis was not done. There has not been much of a change in the susceptibility pattern of these organisms over 3 years, with good susceptibility to piperacillintazobactam and cotrimoxazole. Even though uncommon, E. meningoseptica is an important pathogen, especially in immunocompromised hosts with indwelling devices. Keywords: Bacteremia, Chryseobacterium meningosepticum, Elizabethkingia meningoseptica, immunocompromised host Go to: Introduction Elizabethkingia meningoseptica (Chryseobacterium meningosepticum) is a ubiquitous Gram-negative bacillus described by Carmen Araujo in 1959.[1] Although E. meningoseptica infections in immunocompromised hosts are a well- known entity,[2] limited clinical [facility] are [facility]. This organism is usually resistant to most antibiotics prescribed for treating Gram-negative bacterial infections, including extended-spectrum beta-lactam agents and aminoglycosides, a serious challenge to the patient and the treating clinicians.[3] Antimicrobial susceptibility data on E. meningoseptica also remains very limited , with no established breakpoints by Clinical and Laboratory Standards [place] (CLSI).[4] ````````````````````````````````````````````````````````````````````` [facility] 2013 Mar-Apr; 17(5): 360275. doi: [id number] PMCID: [id number] Elizabethkingia meningoseptica: Emerging nosocomial pathogen in bedside hemodialysis patients Zaire Mensah and Marcella Aragon Go to: Abstract Elizabethkingia meningoseptica, a ubiquitous gram-negative aerobic bacillus, is an emerging hospital acquired pathogen in patients on dialysis. It has been isolated in the hospital environment in water supplies, disinfectants, and medical devices. We present here an analysis of eight healthcare-acquired infections with this organism in adults. To the best of our our knowledge, this is the first report of infections with this organism in patients on hemodialysis. Materials and Methods: Over a 6-month period, eight patients were infected with E. meningoseptica in our hospital. These patients had bacteremia and lower respiratory tract infection. All these patients were on on mechanical ventilation and undergoing bedside hemodialysis in the intensive care unit (ICU). Environmental surveillance was done to detect the possible source. Results: These patients had a common denominator of bedside hemodialysis, and use of broad-spectrum antibiotics. E. meningoseptica was isolated from the water and sink of the ICU. Conclusion: E. meningoseptica is emerging as a nosocomial pathogen among patients on hemodialysis. Its unusual resistance pattern coupled with inherent resistance to colistin makes this organism difficult to treat unless susceptibility patterns are available. Isolation of this organism in handwash sink and water is a significant finding as they have been reported to survive in chlorinated water. Disinfecting the sinks and using filtered water for hand washing in critical areas may help in preventing infections with this organism. Keywords: Colistin resistance, Elizabethkingia meningoseptica, hemodialysis Go to: Introduction Elizabethkingia meningoseptica is increasingly being recognized as a pathogen in hospitalized patients. It is a gram-negative, nonfermenting, nonmotile, oxidase positive bacilli growing on enriched media only. It has been isolated from hospital water supplies, sinks, taps, saline solution used for flushing procedures, disinfectants, and medical devices, including feeding tubes, arterial catheters, and respirators. Environmental studies have revealed that the organism can survive in chlorine-treated municipal water supplies, often colonizing sink basins and taps, intubation tubes, humidifiers, incubators for newborns, ice chests and syringes, and has become a potential reservoir for infections in the hospital environment.[1,2,4] In newborns, meningitis is the most common disease caused by this organism. Bacteremia and pneumonia are the other common manifestations in neonates. Infections usually affect premature infants and often occur as outbreaks.[5,6] Prematurity is a primary risk factor for E. meningosepticum infection. It has been implicated in meningitis, endocarditis, cellulitis, abdominal infection, wound infection, sinusitis, epididymitis, dialysis associated peritonitis, septic arthritis, and eye infections in severely immunocompromised patients such as end-stage hepatic and renal disease, extensive pryor, and acquired immune deficiency syndrome, as well as community-acquired necrotizing fasciitis , pneumonia, and bacteremia.[7,8,9,10] Treatment for E. meningosepticum infections should be based on the mininimum inhibitory concentration (NICO) results from susceptibility tests.[11] Elizabethkingia spp. are resistant to multiple antibiotics, especially to -lactams. Many possess two different types of -lactamases, namely class A extended-spectrum -lactamases and class B metallo--lactamases (MBLs); the latter confer resistance to carbapenems, which are widely used to treat infections caused by multidrug-resistant gram-negative bacteria. Two types of MBL, BlaB and GOB, have been identified in isolates of E. meningosepticum. They are constitutively resistant to multiple antibiotic classes and has unusual resistance patterns and mechanisms.[12,13,14] Go to: Aim A retrospective analysis of patients with this infection in our hospital and to identify the possible source of E. meningoseptica in our hospital. Go to: Materials and Methods Over a 6-month period, eight patients were infected with E. meningoseptica in our hospital. These patients had bacteremia and lower respiratory tract infection, attributable to ventilator-associated pneumonia. All these patients were on mechanical ventilation and bedside hemodialysis in the intensive care unit (ICU). Environmental surveillance swabs were collected from sinks, faucets, dialysis tubings, irrigation systems, airway humidifier vents and tubings, patient beds and dialysis machines. Samples from the water source of the ICU and the Dialysis unit were also tested. Hospital environmental swabs and water samples were inoculated into 5 mL trypticase soy broth and incubated for 48 hrs at 35-37C. After 48 hrs, it was subculture on the blood agar and MacConkey agar plates and incubated for 18-24 h at 35-37C. Moist glover, slightly hemolytic colonies on blood agar were picked up. Once confirmed as oxidase positive, further identification and susceptibility tests were done on the automated system (Vitek 2). The sensitivity of the organisms to colistin and vancomycin was also checked. Go to: Results Eight cases of E. meningoseptica infections were reported in our ICU from June 2011 to December 2011. Seven patients were admitted with due to infection located in Cirrhosis of Liver (one case), Urosepsis (three cases), Dengue (two cases), ARDS (one case) and one patient was admitted for coronary artery bypass grafting. The isolates were from blood[6] and respiratory secretions.[2] The common factors among these patients were mechanical ventilation and bedside hemodialysis. The possible risk factors for colonization or infection by E. meningoseptica were evaluated [Table 1]. Of these patients, two and the rest recovered [Table 2]. Table 1 Frequency of possible risk factors in study patients (n=8) Table 2 Outcome of the patients with Elizabethkingia meningoseptica infection (n=8) All these patients were on colistin for multidrug-resistant bacterial infections. Hospital environmental sampling of sixty-three swabs and thirty-five water samples was performed between October 2011 and December 2011. Water used for hand washing in the ICU and one swab from the handwash sink were the only two sources from which E. meningoseptica was isolated by environmental surveillance. [15] The antibiotic susceptibility pattern of the eight clinical isolates of E. meningoseptica was done on Vitek 2 [Table 3]. Table 3 Minimum inhibitory concentrations of antibiotics tested for Elizabethkingia menigoseptica Go to: Discussion E. meningoseptica has been documented as a pathogen among immunocompetent neonates, but our study suggests that adult patients on mechanical ventilation and bedside hemodialysis may be more prone to this infection. There are very few reports of E. meningoseptica infection in dialysis patients, few published from countries. There are no reports of E. meningoseptica infection among patients on dialysis from [facility]. As per our knowledge, this is the first such study on E. meningoseptica. Eight patients over a period of 6 months acquired E. meningoseptica infection in the hospital. As compared to other studies where E. meningoseptica was a late infection, approximately after 50-70 days after admission to hospital,[16] in our study, the time interval between the admission of a patient to hospital and infection with E. meningoseptica was an average of 5 days (3-7 days). The possible explanation for this early bacteraemia could be the presence of the organism in the tap water used for hand washing. One possible explanation for early bacteremia in the study population is the use of contaminated water for hand washing by healthcare workers. Other possibilty could be the early use of broad spectrum anitibiotics including Colistin. E. meningoseptica has a strong predilection for extremes of age. Our patients were aged between 50 and 60 years. In patients with bacteremia, check blood cultures performed to exclude contamination or colonization were found positive again for the organism. In patients who had pneumonia E. meningoseptica was isolated from bronchoalveolar lavage fluid. Infections with E. meningoseptica were generally associated with a poor outcome , with a cumulative mortality of 33% among postneonates.[17] In our study, patients had relatively lower mortality (25%) and the reason may be early detection and effective antibiotic therapy. Patients with E. meningoseptica bacteremia have poor prognosis and use of inappropriate antibiotics further complicate the situation. All these patients had infection with multidrug resistant organisms for which colistin was being used prior to acquiring E. meningoseptica infection. The organism was resistant to most antimicrobial agents tested and developed resistance to others during treatment. Clinical and Laboratory standards [place] (CLSI) breakpoints for this organism are still not established, making the choice of antibiotic very difficult for the microbiologists as well as the clinicians. The mortality in the above-mentioned patients could also be attributed to comorbid conditions and underlying disease. Most frequently isolated pathogen in these patients was Multi drug resistant ( MDR) pseudomonas and MDR klebsiella. Pseudomonas was only sensitive to colistin and klebsiella sensitive to only colistin and tigecycline. Colistin had the strongest association with E. meningoseptica in these patients. Colistin seems to have acted as a selective factor that allowed E. meningoseptica to emerge in the hospital. E. meningoseptica has unusual resistance patterns and mechanisms. E. meningoseptica are resistant to multiple antibiotics, especially to -lactams. However, they show a moderate susceptibility to Piperacillin. They are also resistant to many antimicrobial classes commonly used to treat infections caused by gram-negative bacteria ( aminoglycosides, chloramphenicol) but are often susceptible to agents generally used to treat infections caused by gram-positive bacteria (rifampicin, quinolones, vancomycin, trimethoprim-sulfamethoxazole). This gram-negative bacillus is vancomycin sensitive and colistin-resistant. In our study, sensitivity rates of E. meningoseptica isolates to the antibiotics were found to be (100%) to vancomycin, (100%) to rifampicin, (87.5% ) to ciprofloxacin, (75%) to trimethoprim-sulfamethoxazole, (75%) to piperacillin/tazobactam, (62.5%) to tigecycline, (37.5%) to piperacillin, (25%) to tetracycline, and (12.5%) to cefoperazone/sulbactam. Vancomycin has been previously recommended as the drug of choice for the treatment of meningitis due to E. meningoseptica.[16] However, the high MICs (16 g/mL) of vancomycin for the organisms as demonstrated in our study as well as those of others[18] first indicate that vancomycin should not be considered the drug of choice. On the contrary, this study confirms the better activity of ciprofloxacin against E. meningoseptica infection, as has been seen in other studies.[3,19] In this study, patients were treated with a combination of ciprofloxacin with either piperacillin/tazobactam or trimethoprim- sulfamethoxazole. Two of our eight cases despite treatment. Tigecycline, tetracycline, and rifampicin may be good alternatives as found in the susceptibility patterns in our study. As the organism is resistant to chlorination, water from hand wash sink of the ICU was one of the environmental source in our hospital. E. meningoseptica infection was seen only in patients who were undergoing bedside hemodialysis. In addition, general infection control practices among the dialysis technicians were inconsistent, particularly hand washing and following aseptic. E. meningosepticum often colonizes sink basins and taps, and has become a potential reservoir for infections in the hospital environment. This population of patients may become colonized after acquiring the organism from the healthcare worker and infection may occur subsequently.[20] Once microbiologist suspects this infection, clinician should immediately be informed so that appropriate antibiotic changes may be instituted early. Clinicians need to be aware of this organism as a potential pathogen and initiate early therapy when preliminary report is informed to them. Active infection control measures like regularly inspecting the hospital water tanks, water surveillance, and hyperchlorinating the water might be required for controlling infection with this challenging bacteria. Further studies are required to define the epidemiology, risk factors and antimicrobial resistance patterns associated with this organism. Problems: Consultation Date/Type/Reason Admit Date/Time Sep 06, 2016 at 22:27 Initial Consult Date 09/07/16 Type of Consultation: ID Referring Provider: FREDDY COELLO MD Exam/Review of Systems Vital Signs Vitals Vital Signs Date Time Temp Pulse Resp B/P Pulse Ox O2 Delivery O2 Flow Rate FiO2 10/07/16 13:35 104 14 100 40 10/07/16 07:49 99.0 107/41 10/05/16 21:21 Mechanical Ventilator Intake and Output 10/06/16 10/06/16 10/07/16 15:00 23:00 07:00 Intake Total 500 ml 930 ml 400 ml Output Total 2000 ml 50 ml Balance -1500 ml 880 ml 400 ml Results Result Diagram: 10/07/16 0700 10/07/16 0535 Results 24 hrs Laboratory Tests Test 10/06/16 17:40 10/07/16 00:09 10/07/16 05:35 10/07/16 06:40 Bedside Glucose 172 154 196 Anion Gap 14 Basophils # 0.0 Basophils % 0.2 Blood Urea Nitrogen 60 H Calcium Level 8.2 L Carbon Dioxide Level 25 Chloride Level 99 Creatinine 1.30 H Eosinophils # 0.1 Eosinophils % 1.0 Glucose Level 481 #*H Hematocrit 22.9 L Hemoglobin 7.6 L Lymphocytes # 0.2 L Lymphocytes % 4.2 L Mean Corpuscular Hemoglobin 29.8 Mean Corpuscular Hemoglobin Concent 33.2 Mean Corpuscular Volume 89.8 Mean Platelet Volume 13.5 H Monocytes # 0.3 Monocytes % 6.9 Neutrophils # 4.2 Neutrophils % 87.1 H Nucleated Red Blood Cells # 0.0 Nucleated Red Blood Cells % 0.0 Platelet Count 6 #*L Potassium Level 3.6 Red Blood Count 2.55 L Red Cell Distribution Width 18.1 H Sodium Level 134 L White Blood Count 4.8 Test 10/07/16 07:00 10/07/16 11:38 Band Neutrophils % 32.0 H Basophils # 0.0 Basophils % 1.0 Eosinophils # 0.1 Eosinophils % 2.0 Hematocrit 23.4 L Hemoglobin 7.9 L Lymphocytes # 0.1 L Lymphocytes % 3.0 L Mean Corpuscular Hemoglobin 30.2 Mean Corpuscular Hemoglobin Concent 33.8 Mean Corpuscular Volume 89.3 Mean Platelet Volume 12.7 H Monocytes # 0.1 L Monocytes % 3.0 Myelocytes # 0.0 Myelocytes % 1.0 H Neutrophils # 2.8 Neutrophils % 58.0 Platelet Count 8 #*L Platelet Estimate PLT APPEAR Red Blood Count 2.62 L Red Cell Distribution Width 18.0 H White Blood Count 4.8 Bedside Glucose 212 Medications Medications Current Medications Acetaminophen (Tylenol Liquid) 640 mg Q6H PRN GTB PAIN OR TEMP ABOVE 38C Last administered on 10/04/16 05:44; Admin Dose 640 MG; Start 09/06/16 at 22:30 Allopurinol (Zyloprim) 200 mg DAILY GTB Last administered on 10/07/16 09:51; Admin Dose 200 MG; Start 09/07/16 at 09:00 Ascorbic Acid (Vitamin C) 500 mg BID GTB Last administered on 10/07/16 09:51; Admin Dose 500 MG; Start 09/07/16 at 09:00 Calcitriol (Rocaltrol) 0.25 mcg DAILY GTB Last administered on 10/07/16 09:51 ; Admin Dose 0.25 MCG; Start 09/07/16 at 09:00 Chlorhexidine Gluconate (Peridex) 15 ml BID MM Last administered on 10/07/16 09:50; Admin Dose 15 ML; Start 09/07/16 at 09:00 Famotidine (Pepcid) 40 mg DAILY GTB Last administered on 10/07/16 09:51; Admin Dose 40 MG; Start 09/07/16 at 09:00 Lansoprazole (Prevacid) 30 mg BID@18 GTB Last administered on 10/07/16 06: 58; Admin Dose 30 MG; Start 09/07/16 at 06:00 Levetiracetam (Keppra Liquid) 500 mg BID GTB Last administered on 10/07/16 09: 56; Admin Dose 500 MG; Start 09/07/16 at 09:00 Metoclopramide HCl (Reglan) 5 mg Q8H PRN GTB NAUSEA AND/OR VOMITING; Start 09/06 at 22:30 Sucralfate (Carafate Susp) 1 gm BID GTB Last administered on 10/07/16 09:50; Admin Dose 1 GM; Start 09/07/16 at 09:00 Ondansetron HCl (Zofran Inj) 4 mg Q6H PRN IV NAUSEA AND/OR VOMITING Last administered on 09/17/16 00:52; Admin Dose 4 MG; Start 09/06/16 at 22:30 Morphine Sulfate (morphine) 2 mg Q4H PRN IV PAIN LEVEL 7-10 Last administered on 09/16/16 20:19; Admin Dose 2 MG; Start 09/06/16 at 22:30 Metoclopramide HCl (Reglan) 5 mg Q6H PRN IV RESIDUALS > 100; Start 09/10/16 at 19:00 Clonidine (Catapres) 0.1 mg Q6H PRN GTB ELEVATED SYSTOLIC BP Last administered on 09/15/16 07:04; Admin Dose 0.1 MG; Start 09/13/16 at 23:00 Hydralazine HCl (Apresoline) 10 mg Q6H PRN IV ELEVATED SYSTOLIC BP Last administered on 09/15/16 02:08; Admin Dose 10 MG; Start 09/15/16 at 01:50 Collagenase (Santyl) 1 applic DAILY TOP Last administered on 10/07/16 09:51; Admin Dose 1 APPLIC; Start 09/18/16 at 09:00 Glycopyrrolate (Robinul) 1 mg Q8 GTB Last administered on 10/07/16 14:55; Admin Dose 1 MG; Start 09/19/16 at 09:30 Amikacin Sulfate AMIKACIN PER PHARMACY NOTE XX ; Start 09/24/16 at 14:00 Sodium Chloride/ Dextrose (Nacl/D10w) 1,019.25 ml @ 50 mls/hr [id number] IV Last administered on 10/06/16 21:59; Admin Dose 50 MLS/HR; Start 09/28/16 at 09:00 Miscellaneous Information 1 ea NOTE XX ; Start 09/28/16 at 09:00 Glucose (Glutose) 15 gm Q15M PRN PO DECREASED GLUCOSE; Start 09/28/16 at 09:00 Glucose (Glutose) 22.5 gm Q15M PRN PO DECREASED GLUCOSE; Start 09/28/16 at 09:00 Dextrose (D50w Syringe) 25 ml Q15M PRN IV DECREASED GLUCOSE Last administered on 09/29/16 18:18; Admin Dose 25 ML; Start 09/28/16 at 09:00 Dextrose (D50w Syringe) 50 ml Q15M PRN IV DECREASED GLUCOSE; Start 09/28/16 at 09:00 Glucagon (Glucagen) 1 mg Q15M PRN IM DECREASED GLUCOSE; Start 09/28/16 at 09:00 Glucose (Glutose) 15 gm Q15M PRN BUCCAL DECREASED GLUCOSE; Start 09/28/16 at 09: 00 Insulin Aspart (Novolog Insulin Pen) NOVOLOG *MILD* ALGORI... Q6 SC Last administered on 10/07/16 11:45; Admin Dose 2 UNIT; Start 09/29/16 at 00:00 IV Flush (NS 10 ml) 10 ml PRN PRN IV FLUSH LINE; Start 09/29/16 at 20:30 Epoetin Jeffry (Epogen (Esrd)) 6,000 units MoWeFr@17 SC Last administered on 10/05 19:06; Admin Dose 6,000 UNITS; Start 10/01/16 at 17:00 IRINA VARGHESE NP Oct 07, 2016 15:36
[2016-10-07] MEDS: ACETAMINOPHEN 650MG/20.3ML CUP GTB PRN (17:51)
[2016-10-07] MEDS: SODIUM CHLORIDE 23.4% 77 MEQ in DEXTROSE 10% 1,000 ML IV SCH (17:52)
[2016-10-07] MEDS: CIPROFLOXACIN 200 MG/D5W IVPB 100 ML IVPB SCH (18:03)
--- NOTE | 2016-10-07 22:41 | CONS ---
Date/Time of Note Date/Time of Note DATE: 10/07/16 TIME: 22:37 Assessment/Plan Assessment/Plan Additional Assessment/Plan 1. Acute kidney injury on possible chronic kidney disease unknown stage secondary to severe prerenal azotemia causing ischemic acute tubular necrosis in the setting of severe anemia.- continue to have Anuria with uremic symptoms and GI bleeding- started on HD during this admission 2. Severe anemia,s/p PRBC 3. Chronic respiratory failure, status post tracheostomy, on vent. 4. Pancytopenia. 5. History of a seizure disorder. 6. thrombocytopenia PLAN: Pt is on chronic HD now, HD ordered for tomorrow will continue to follow up on patient Consultation Date/Type/Reason Admit Date/Time Sep 06, 2016 at 22:27 Initial Consult Date Aug Type of Consultation: NEPHROLOGY Referring Provider: FREDDY COELLO MD 24 HR Interval Summary Free Text/Dictation S/p HD yesterday 1.5 L removed Exam/Review of Systems Vital Signs Vitals Vital Signs Date Time Temp Pulse Resp B/P Pulse Ox O2 Delivery O2 Flow Rate FiO2 10/07/16 21:53 101 15 100 40 10/07/16 20:00 99.3 121/53 10/05/16 21:21 Mechanical Ventilator Intake and Output 10/06/16 10/06/16 10/07/16 15:00 23:00 07:00 Intake Total 500 ml 930 ml 400 ml Output Total 2000 ml 50 ml Balance -1500 ml 880 ml 400 ml Exam GENERAL: chronically ill-appearing, middle-aged man who is lying comfortably in bed. HEENT: Head atraumatic, normocephalic. Sclerae anicteric. Buccal mucosa dry. NECK: Supple. Tracheostomy present. CHEST: Rise symmetrical. Breath sounds diminished. HEART: S1, S2. ABDOMEN: Soft, bowel tones present. EXTREMITIES: Without cyanosis. Contractured. + permacath Right IJ Results Result Diagram: 10/07/16 0700 10/07/16 0535 Results 24 hrs Laboratory Tests Test 10/07/16 00:09 10/07/16 05:35 10/07/16 06:40 10/07/16 07:00 Bedside Glucose 154 196 Anion Gap 14 Basophils # 0.0 0.0 Basophils % 0.2 1.0 Blood Urea Nitrogen 60 H Calcium Level 8.2 L Carbon Dioxide Level 25 Chloride Level 99 Creatinine 1.30 H Eosinophils # 0.1 0.1 Eosinophils % 1.0 2.0 Glucose Level 481 #*H Hematocrit 22.9 L 23.4 L Hemoglobin 7.6 L 7.9 L Lymphocytes # 0.2 L 0.1 L Lymphocytes % 4.2 L 3.0 L Mean Corpuscular Hemoglobin 29.8 30.2 Mean Corpuscular Hemoglobin Concent 33.2 33.8 Mean Corpuscular Volume 89.8 89.3 Mean Platelet Volume 13.5 H 12.7 H Monocytes # 0.3 0.1 L Monocytes % 6.9 3.0 Neutrophils # 4.2 2.8 Neutrophils % 87.1 H 58.0 Nucleated Red Blood Cells # 0.0 Nucleated Red Blood Cells % 0.0 Platelet Count 6 #*L 8 #*L Potassium Level 3.6 Red Blood Count 2.55 L 2.62 L Red Cell Distribution Width 18.1 H 18.0 H Sodium Level 134 L White Blood Count 4.8 4.8 Band Neutrophils % 32.0 H Myelocytes # 0.0 Myelocytes % 1.0 H Platelet Estimate PLT APPEAR Test 10/07/16 11:38 10/07/16 18:02 Bedside Glucose 212 164 Medications Medications Current Medications Acetaminophen (Tylenol Liquid) 640 mg Q6H PRN GTB PAIN OR TEMP ABOVE 38C Last administered on 10/07/16 17:51; Admin Dose 640 MG; Start 09/06/16 at 22:30 Allopurinol (Zyloprim) 200 mg DAILY GTB Last administered on 10/07/16 09:51; Admin Dose 200 MG; Start 09/07/16 at 09:00 Ascorbic Acid (Vitamin C) 500 mg BID GTB Last administered on 10/07/16 09:51; Admin Dose 500 MG; Start 09/07/16 at 09:00 Calcitriol (Rocaltrol) 0.25 mcg DAILY GTB Last administered on 10/07/16 09:51 ; Admin Dose 0.25 MCG; Start 09/07/16 at 09:00 Chlorhexidine Gluconate (Peridex) 15 ml BID MM Last administered on 10/07/16 09:50; Admin Dose 15 ML; Start 09/07/16 at 09:00 Famotidine (Pepcid) 40 mg DAILY GTB Last administered on 10/07/16 09:51; Admin Dose 40 MG; Start 09/07/16 at 09:00 Lansoprazole (Prevacid) 30 mg BID@18 GTB Last administered on 10/07/16 17: 52; Admin Dose 30 MG; Start 09/07/16 at 06:00 Levetiracetam (Keppra Liquid) 500 mg BID GTB Last administered on 10/07/16 09: 56; Admin Dose 500 MG; Start 09/07/16 at 09:00 Metoclopramide HCl (Reglan) 5 mg Q8H PRN GTB NAUSEA AND/OR VOMITING; Start 09/06 at 22:30 Sucralfate (Carafate Susp) 1 gm BID GTB Last administered on 10/07/16 09:50; Admin Dose 1 GM; Start 09/07/16 at 09:00 Ondansetron HCl (Zofran Inj) 4 mg Q6H PRN IV NAUSEA AND/OR VOMITING Last administered on 09/17/16 00:52; Admin Dose 4 MG; Start 09/06/16 at 22:30 Morphine Sulfate (morphine) 2 mg Q4H PRN IV PAIN LEVEL 7-10 Last administered on 09/16/16 20:19; Admin Dose 2 MG; Start 09/06/16 at 22:30 Metoclopramide HCl (Reglan) 5 mg Q6H PRN IV RESIDUALS > 100; Start 09/10/16 at 19:00 Clonidine (Catapres) 0.1 mg Q6H PRN GTB ELEVATED SYSTOLIC BP Last administered on 09/15/16 07:04; Admin Dose 0.1 MG; Start 09/13/16 at 23:00 Hydralazine HCl (Apresoline) 10 mg Q6H PRN IV ELEVATED SYSTOLIC BP Last administered on 09/15/16 02:08; Admin Dose 10 MG; Start 09/15/16 at 01:50 Collagenase (Santyl) 1 applic DAILY TOP Last administered on 10/07/16 09:51; Admin Dose 1 APPLIC; Start 09/18/16 at 09:00 Glycopyrrolate (Robinul) 1 mg Q8 GTB Last administered on 10/07/16 14:55; Admin Dose 1 MG; Start 09/19/16 at 09:30 Amikacin Sulfate AMIKACIN PER PHARMACY NOTE XX ; Start 09/24/16 at 14:00 Sodium Chloride/ Dextrose (Nacl/D10w) 1,019.25 ml @ 50 mls/hr [id number] IV Last administered on 10/07/16 17:52; Admin Dose 50 MLS/HR; Start 09/28/16 at 09:00 Miscellaneous Information 1 ea NOTE XX ; Start 09/28/16 at 09:00 Glucose (Glutose) 15 gm Q15M PRN PO DECREASED GLUCOSE; Start 09/28/16 at 09:00 Glucose (Glutose) 22.5 gm Q15M PRN PO DECREASED GLUCOSE; Start 09/28/16 at 09:00 Dextrose (D50w Syringe) 25 ml Q15M PRN IV DECREASED GLUCOSE Last administered on 09/29/16 18:18; Admin Dose 25 ML; Start 09/28/16 at 09:00 Dextrose (D50w Syringe) 50 ml Q15M PRN IV DECREASED GLUCOSE; Start 09/28/16 at 09:00 Glucagon (Glucagen) 1 mg Q15M PRN IM DECREASED GLUCOSE; Start 09/28/16 at 09:00 Glucose (Glutose) 15 gm Q15M PRN BUCCAL DECREASED GLUCOSE; Start 09/28/16 at 09: 00 Insulin Aspart (Novolog Insulin Pen) NOVOLOG *MILD* ALGORI... Q6 SC Last administered on 10/07/16 18:23; Admin Dose 1 UNIT; Start 09/29/16 at 00:00 IV Flush (NS 10 ml) 10 ml PRN PRN IV FLUSH LINE; Start 09/29/16 at 20:30 Epoetin Jeffry 6000 units 6,000 units MoWeFr@17 SC Last administered on 19:06; Admin Dose 6,000 UNITS; Start 10/01/16 at 17:00 Ciprofloxacin/ Dextrose (Cipro Ivpb) 100 ml @ 100 mls/hr Q24H IVPB Last administered on 10/07/16 18:03; Admin Dose 100 MLS/HR; Start 10/07/16 at 17:30 KENIA TURCIOS MD Oct 07, 2016 22:41
[2016-10-08] VITALS (27 sets, daily range): BP systolic 72–132; BP diastolic 32–63; PULSE 69–104; RESP 14–20
[2016-10-08] MEDS: LEVALBUTEROL (HFA) 15 GM INHALER INH SCH ×4 (01:35→21:39)
[2016-10-08] MEDS: IPRATROPIUM (HFA) 12.9 GM INHALER INH SCH ×4 (01:35→21:39)
[2016-10-08] MEDS: INSULIN ASPART [NOVOLOG] 3 ML PEN SC SCH ×4 (02:39→18:00)
[2016-10-08 07:06] LABS: ADD SCAN DIFF NO
[2016-10-08 07:14] LABS: ABNORMAL IP MESSAGE 1; EOSINOPHILS # 0.1 10^3/ul (0.0-0.5); EOSINOPHILS % 2.3 % (0.0-7.0); HEMOGLOBIN 7.2 g/dl (14.0-18.0); LYMPHOCYTES # 0.3 10^3/ul (0.8-2.9); LYMPHOCYTES % 7.5 % (15.0-51.0); MEAN CORPUSCULAR HGB CONC 32.7 g/dl (32.0-37.0); MEAN CORPUSCULAR VOLUME 91.7 fl (82.0-101.0); MEAN PLATELET VOLUME 11.1 fl (7.4-10.4); MONOCYTE # 0.3 10^3/ul (0.3-0.9); MONOCYTES % 8.6 % (0.0-11.0); NEUTROPHIL # 2.8 10^3/ul (1.6-7.5); NEUTROPHILS % 80.4 % (39.0-77.0); RED CELL DISTRIBUTION WIDTH 17.8 % (11.5-14.5); WHITE BLOOD COUNT 3.5 10^3/ul (4.8-10.8)
[2016-10-08 07:27] LABS: PLATELET COUNT 18 10^3/UL (140-415)
[2016-10-08 07:30] LABS: POTASSIUM 4.2 mmol/L (3.5-5.1)
[2016-10-08 07:33] LABS: CALCIUM 8.6 mg/dl (8.4-10.2); CREATININE 1.55 mg/dl (0.61-1.24)
[2016-10-08] MEDS: LANSOPRAZOLE 30 MG CAP GTB SCH ×2 (08:03→17:43)
[2016-10-08] MEDS: GLYCOPYRROLATE 1 MG TAB GTB SCH ×3 (08:03→21:12)
[2016-10-08] MEDS: CHLORHEXIDINE GLUCONATE 15 ML UD CUP MM SCH ×2 (09:46→21:12)
[2016-10-08] MEDS: ALLOPURINOL 100 MG TAB GTB SCH (09:47)
[2016-10-08] MEDS: SEVELAMER CARBONATE 2.4 GM PKT GTB SCH ×3 (09:47→17:43)
[2016-10-08] MEDS: CALCITRIOL 0.25 MCG CAP GTB SCH (09:47)
[2016-10-08] MEDS: LEVETIRACETAM (100 MG/ML) 5ML CUP GTB SCH ×2 (09:47→21:12)
[2016-10-08] MEDS: FAMOTIDINE 20 MG TAB GTB SCH (09:47)
[2016-10-08] MEDS: SUCRALFATE (100 MG/ML) 10ML CUP GTB SCH ×2 (09:47→21:12)
[2016-10-08] MEDS: ASCORBIC ACID 500 MG TAB GTB SCH ×2 (09:47→21:12)
[2016-10-08] MEDS: COLLAGENASE 30 GM TUBE TOP SCH (09:48)
--- NOTE | 2016-10-08 12:54 | PN ---
DATE: 10/08/2016 SUBJECTIVE: No acute changes. The patient is nonverbal, noncommunicative, lying comfortably in bed . He is afebrile. INDWELLINGS: Trach, PEG, Brar, left upper extremity PICC line and right subclavian Perm-A-Cath. ANTIMICROBIALS: 1. Cipro. 2. Vancomycin. 3. Amikacin. ALLERGIES: ZITHROMAX, ZOSYN, ERYTHROMYCIN. PHYSICAL EXAMINATION: GENERAL: Chronically ill-appearing, elderly man who is in no distress. HEENT: Head atraumatic, normocephalic. Sclerae anicteric. Buccal mucosa dry. NECK: Supple. Tracheostomy present. CHEST: Rise symmetrical. Breath sounds diminished to bases. HEART: S1, S2. ABDOMEN: Soft. Bowel tones present. EXTREMITIES: Without cyanosis. Bilateral edema, left upper extremity erythematous with blisters at the PICC line site. ASSESSMENT: 1. Sepsis with bacteremia per cultures grown on 10/04/2016. 2. Multiple chronic wounds. 3. End-stage renal disease on hemodialysis. 4. Chronic respiratory failure. 5. Chronic encephalopathy. 6. Seizure disorder. PLAN: The patient remains clinically stable on appropriate antimicrobials. We are going to repeat blood cultures from PICC line. We will order urine culture. I ordered it 3 days ago and it was not done. Consider PICC line discontinuation. Continue local wound care. The patient is FULL CODE. Overall prognosis for meaningful recovery is poor. Dictated By: ARUN DIANA ENTERPRISE INTEGRATION DEVELOPER for [employer]/NIKOLAI Conf#: [id number] DID#: [id number]
[2016-10-08] MEDS: SODIUM CHLORIDE 23.4% 77 MEQ in DEXTROSE 10% 1,000 ML IV SCH (14:09)
--- NOTE | 2016-10-08 16:03 | PN ---
DATE: 10/08/2016 The patient's general condition is the same. He is poorly responsive. He is on continuous ventilat or support. PHYSICAL EXAMINATION: VITAL SIGNS: Show temperature 98.3, blood pressure 98/44, pulse rate of 96, respirations 15, pulse oximetry showing 100% saturation with 40% inhaled oxygen concentration. HEENT: Tracheal secretions are clear, no gross bleeding is seen. However, I was informed yesterday that he had tracheal bleeding during suctioning. HEART: Regular rhythm. CHEST: Breath sounds are heard bilaterally, diminished in the lower lung [place], otherwise clear. ABDOMEN: Soft, tolerating gastrostomy tube feedings. Normal bowel sounds. EXTREMITIES: Show generalized edema. LABORATORY DATA: From today shows WBC 3500, hemoglobin 7.2, hematocrit 22, platelets 18,000. Appar ently he has a platelet transfusion yesterday after which platelet count was increased from 8000 to 18,000. It is still low. He will still need a platelet transfusion if he continues to bleed. He wi ll also need packed cells as his hemoglobin is 7.2. This could be done during dialysis in coordinati on of the optical instrument assembly supervisor. The chemistry panel shows sodium 134, potassium 4.2, BUN 81, creatinine 1.5 5, glucose 152. IMAGING: The chest x-ray from yesterday shows no significant change, small bilateral pleural effusi ons are seen, probably secondary to underlying renal failure. 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 No specific sensitivity report is available. The antibiotic therapy wi ll be as per the infectious disease outbound sales consultant. IMPRESSION: 1. Gram-negative sepsis. 2. Chronic respiratory failure, ventilator dependent. 3. History of seizure disorder. 4. Chronic encephalopathy. 5. Acute renal failure on dialysis. 6. Pancytopenia. 7. History of developmental delay. RECOMMENDATIONS: 1. Continue long-term ventilator support. 2. Continue antibiotics as per ID outbound sales consultant. 3. Continue dialysis as per optical instrument assembly supervisor. 4. Continue tube feedings. 5. Continue bronchodilator inhalation therapy to clear the secretions. 6. Use a red rubber soft tip catheter for suctioning and as needed for tracheal bleeding. Dictated By: VEENA STREETER MD SR/NTS Conf#: [id number] DID#: [id number]
--- NOTE | 2016-10-08 16:19 | CONS ---
Date/Time of Note Date/Time of Note DATE: 10/08/16 TIME: 16:15 Assessment/Plan Assessment/Plan Chief Complaint/Hosp Course 56 year old male with mental retardation, ventilator dependent respiratory failure, dysphagia with PEG, history of seizure disorder on Keppra, diastolic dysfunction congestive heart failure with preserved ejection fraction of 60%, status post cerebrovascular accident, status post craniotomy, acute on chronic kidney failure now on dialysis, with GI bleed with Dr. Singh following, hypovolemic and septic shock with multiple decubitus with wound culture growing multi-drug resistant organisms on Amikacin. Hematology was consulted for anemia and thrombocytopenia. # Thrombocytopenia,- pt received platelet transfusion yesterday. platelet lazara to 18. Pt is HIT positive - NO HEPARIN for patient givne + HIT antibody - Possible contribution due to sepsis as well particularly in the setting of recent fever, and now with GNR bacteremia. DIC panel may suggest component of DIC with prolongs coags and elevated D dimer with rare schistocytes on smear though fibrin split products not elevated. HIV and Hep panel negative. Continue to monitor platelet count - Peripheral smear reviewed by pathology and confirms decreased platelet count, no microangiopathic changes, rare schistocytes, occasional metamyelocytes, mild bandemia, and no blasts - Abdominal US was technically limited study due to patient's inability to cooperate demonstrating mild hepatomegaly with a slightly coarsened echotexture which may indicate steatosis/hepatic cellular disease. # Normocytic anemia, likely multifactorial due to GI bleed, chronic kidney disease, likely chronic inflammation - Iron panel suggests anemia of chronic inflammation, high ferritin as expected. ; B12/folate WNL, LDH not elevated, retic count inappropriately low - Continue epo. -agree with blood transfusion with HD to be given today. Problems: Consultation Date/Type/Reason Admit Date/Time Sep 06, 2016 at 22:27 Initial Consult Date 10/03/16 Type of Consultation: Hematology Reason for Consultation Anemia/ thrombocytopenia Referring Provider: FREDDY COELLO MD 24 HR Interval Summary Free Text/Dictation pt minimally responsive. pt with worsening anemia and thrombocytopenia. pt to get blood transfusion today with HD. no clinical bleeding per nurse Exam/Review of Systems Vital Signs Vitals Vital Signs Date Time Temp Pulse Resp B/P Pulse Ox O2 Delivery O2 Flow Rate FiO2 10/08/16 15:15 98.4 70 18 91/44 100 10/08/16 13:55 40 3/10/17 21:21 Mechanical Ventilator Intake and Output 10/07/16 10/07/16 10/08/16 15:00 23:00 07:00 Intake Total 680 ml 1190 ml Output Total 50 ml 60 ml Balance 630 ml 1130 ml Exam Constitutional: frail, other (minimally responsive) Eyes: nl conjunctiva Neck: other (trach in place) Respiratory: clear to auscultation, normal air movement Cardiovascular: regular rate and rhythm Gastrointestinal: soft Musculoskeletal: nl extremities to inspection, other (permacath in place) Results Result Diagram: 10/08/16 0544 10/08/16 0544 Results 24 hrs Laboratory Tests Test 10/07/16 18:02 10/08/16 01:10 10/08/16 05:44 10/08/16 08:35 Bedside Glucose 164 172 178 Anion Gap 10 Basophils # 0.0 Basophils % 0.0 Blood Urea Nitrogen 81 H Calcium Level 8.6 Carbon Dioxide Level 28 Chloride Level 100 Creatinine 1.55 H Eosinophils # 0.1 Eosinophils % 2.3 Glucose Level 152 # Hematocrit 22.0 L Hemoglobin 7.2 L Lymphocytes # 0.3 L Lymphocytes % 7.5 L Mean Corpuscular Hemoglobin 30.0 Mean Corpuscular Hemoglobin Concent 32.7 Mean Corpuscular Volume 91.7 Mean Platelet Volume 11.1 H Monocytes # 0.3 Monocytes % 8.6 Neutrophils # 2.8 Neutrophils % 80.4 H Nucleated Red Blood Cells # 0.0 Nucleated Red Blood Cells % 0.0 Platelet Count 18 #*L Potassium Level 4.2 Red Blood Count 2.40 L Red Cell Distribution Width 17.8 H Sodium Level 134 L White Blood Count 3.5 L Test 10/08/16 12:01 Bedside Glucose 198 Medications Medications Current Medications Acetaminophen (Tylenol Liquid) 640 mg Q6H PRN GTB PAIN OR TEMP ABOVE 38C Last administered on 10/07/16 17:51; Admin Dose 640 MG; Start 09/06/16 at 22:30 Allopurinol (Zyloprim) 200 mg DAILY GTB Last administered on 10/08/16 09:47; Admin Dose 200 MG; Start 09/07/16 at 09:00 Ascorbic Acid (Vitamin C) 500 mg BID GTB Last administered on 10/08/16 09:47; Admin Dose 500 MG; Start 09/07/16 at 09:00 Calcitriol (Rocaltrol) 0.25 mcg DAILY GTB Last administered on 10/08/16 09:47 ; Admin Dose 0.25 MCG; Start 09/07/16 at 09:00 Chlorhexidine Gluconate (Peridex) 15 ml BID MM Last administered on 10/08/16 09:46; Admin Dose 15 ML; Start 09/07/16 at 09:00 Famotidine (Pepcid) 40 mg DAILY GTB Last administered on 10/08/16 09:47; Admin Dose 40 MG; Start 09/07/16 at 09:00 Lansoprazole (Prevacid) 30 mg BID@ GTB Last administered on 10/08/16 08: 03; Admin Dose 30 MG; Start 09/07/16 at 06:00 Levetiracetam (Keppra Liquid) 500 mg BID GTB Last administered on 10/08/16 09: 47; Admin Dose 500 MG; Start 09/07/16 at 09:00 Metoclopramide HCl (Reglan) 5 mg Q8H PRN GTB NAUSEA AND/OR VOMITING; Start 09/06 at 22:30 Sucralfate (Carafate Susp) 1 gm BID GTB Last administered on 10/08/16 09:47; Admin Dose 1 GM; Start 09/07/16 at 09:00 Ondansetron HCl (Zofran Inj) 4 mg Q6H PRN IV NAUSEA AND/OR VOMITING Last administered on 09/17/16 00:52; Admin Dose 4 MG; Start 09/06/16 at 22:30 Morphine Sulfate (morphine) 2 mg Q4H PRN IV PAIN LEVEL 7-10 Last administered on 09/16/16 20:19; Admin Dose 2 MG; Start 09/06/16 at 22:30 Metoclopramide HCl (Reglan) 5 mg Q6H PRN IV RESIDUALS > 100; Start 09/10/16 at 19:00 Clonidine (Catapres) 0.1 mg Q6H PRN GTB ELEVATED SYSTOLIC BP Last administered on 09/15/16 07:04; Admin Dose 0.1 MG; Start 09/13/16 at 23:00 Hydralazine HCl (Apresoline) 10 mg Q6H PRN IV ELEVATED SYSTOLIC BP Last administered on 09/15/16 02:08; Admin Dose 10 MG; Start 09/15/16 at 01:50 Collagenase (Santyl) 1 applic DAILY TOP Last administered on 10/08/16 09:48; Admin Dose 1 APPLIC; Start 09/18/16 at 09:00 Glycopyrrolate (Robinul) 1 mg Q8 GTB Last administered on 10/08/16 14:09; Admin Dose 1 MG; Start 09/19/16 at 09:30 Amikacin Sulfate (Amikacin Iv Per Pharmacy) AMIKACIN PER PHARMACY NOTE XX ; Start 09/24/16 at 14:00 Miscellaneous Information 1 ea NOTE XX ; Start 09/28/16 at 09:00 Glucose (Glutose) 15 gm Q15M PRN PO DECREASED GLUCOSE; Start 09/28/16 at 09:00 Glucose (Glutose) 22.5 gm Q15M PRN PO DECREASED GLUCOSE; Start 09/28/16 at 09:00 Dextrose (D50w Syringe) 25 ml Q15M PRN IV DECREASED GLUCOSE Last administered on 09/29/16 18:18; Admin Dose 25 ML; Start 09/28/16 at 09:00 Dextrose (D50w Syringe) 50 ml Q15M PRN IV DECREASED GLUCOSE; Start 09/28/16 at 09:00 Glucagon (Glucagen) 1 mg Q15M PRN IM DECREASED GLUCOSE; Start 09/28/16 at 09:00 Glucose (Glutose) 15 gm Q15M PRN BUCCAL DECREASED GLUCOSE; Start 09/28/16 at 09: 00 Insulin Aspart (Novolog Insulin Pen) NOVOLOG *MILD* ALGORI... Q6 SC Last administered on 10/08/16 12:09; Admin Dose 2 UNIT; Start 09/29/16 at 00:00 IV Flush (NS 10 ml) 10 ml PRN PRN IV FLUSH LINE; Start 09/29/16 at 20:30 Epoetin Jeffry 6000 units 6,000 units MoWeFr@17 SC Last administered on 19:06; Admin Dose 6,000 UNITS; Start 10/01/16 at 17:00 Ciprofloxacin/ Dextrose (Cipro Ivpb) 100 ml @ 100 mls/hr Q24H IVPB Last administered on 10/07/16 18:03; Admin Dose 100 MLS/HR; Start 10/07/16 at 17:30 Miscellaneous Information (*Rx Drug Level Order Reminder*) 1 ONCE ONCE XX ; Start 10/09/16 at 05:00; Stop 10/09/16 at 05:01 NATI MONTEMAYOR M.D. Oct 08, 2016 16:19
--- NOTE | 2016-10-08 17:18 | CONS ---
Date/Time of Note Date/Time of Note DATE: 10/08/16 TIME: 17:17 Assessment/Plan Assessment/Plan Additional Assessment/Plan 1. Acute kidney injury on possible chronic kidney disease unknown stage secondary to severe prerenal azotemia causing ischemic acute tubular necrosis in the setting of severe anemia.- continue to have Anuria with uremic symptoms and GI bleeding- started on HD during this admission 2. Severe anemia,s/p PRBC 3. Chronic respiratory failure, status post tracheostomy, on vent. 4. Pancytopenia. 5. History of a seizure disorder. 6. thrombocytopenia PLAN: Pt is on chronic HD now, HD ordered for tomorrow, Hb low, transfuse 1 unit PRBC with HD tomorrow will continue to follow up on patient Consultation Date/Type/Reason Admit Date/Time Sep 06, 2016 at 22:27 Initial Consult Date Aug Type of Consultation: NEPHROLOGY Referring Provider: FREDDY COELLO MD 24 HR Interval Summary Free Text/Dictation platelets and Hb stll low, will plan for HD tomorrow Exam/Review of Systems Vital Signs Vitals Vital Signs Date Time Temp Pulse Resp B/P Pulse Ox O2 Delivery O2 Flow Rate FiO2 10/08/16 16:58 101 10/08/16 15:55 14 100 40 10/08/16 15:15 98.4 91/44 10/05/16 21:21 Mechanical Ventilator Intake and Output 10/07/16 10/07/16 10/08/16 15:00 23:00 07:00 Intake Total 680 ml 1190 ml Output Total 50 ml 60 ml Balance 630 ml 1130 ml Exam GENERAL: chronically ill-appearing, middle-aged man who is lying comfortably in bed. HEENT: Head atraumatic, normocephalic. Sclerae anicteric. Buccal mucosa dry. NECK: Supple. Tracheostomy present. CHEST: Rise symmetrical. Breath sounds diminished. HEART: S1, S2. ABDOMEN: Soft, bowel tones present. EXTREMITIES: Without cyanosis. Contractured. + permacath Right IJ Results Result Diagram: 10/08/16 0544 10/08/16 0544 Results 24 hrs Laboratory Tests Test 10/07/16 18:02 10/08/16 01:10 10/08/16 05:44 10/08/16 08:35 Bedside Glucose 164 172 178 Anion Gap 10 Basophils # 0.0 Basophils % 0.0 Blood Urea Nitrogen 81 H Calcium Level 8.6 Carbon Dioxide Level 28 Chloride Level 100 Creatinine 1.55 H Eosinophils # 0.1 Eosinophils % 2.3 Glucose Level 152 # Hematocrit 22.0 L Hemoglobin 7.2 L Lymphocytes # 0.3 L Lymphocytes % 7.5 L Mean Corpuscular Hemoglobin 30.0 Mean Corpuscular Hemoglobin Concent 32.7 Mean Corpuscular Volume 91.7 Mean Platelet Volume 11.1 H Monocytes # 0.3 Monocytes % 8.6 Neutrophils # 2.8 Neutrophils % 80.4 H Nucleated Red Blood Cells # 0.0 Nucleated Red Blood Cells % 0.0 Platelet Count 18 #*L Potassium Level 4.2 Red Blood Count 2.40 L Red Cell Distribution Width 17.8 H Sodium Level 134 L White Blood Count 3.5 L Test 10/08/16 12:01 Bedside Glucose 198 Medications Medications Current Medications Acetaminophen (Tylenol Liquid) 640 mg Q6H PRN GTB PAIN OR TEMP ABOVE 38C Last administered on 10/07/16 17:51; Admin Dose 640 MG; Start 09/06/16 at 22:30 Allopurinol (Zyloprim) 200 mg DAILY GTB Last administered on 10/08/16 09:47; Admin Dose 200 MG; Start 09/07/16 at 09:00 Ascorbic Acid (Vitamin C) 500 mg BID GTB Last administered on 10/08/16 09:47; Admin Dose 500 MG; Start 09/07/16 at 09:00 Calcitriol (Rocaltrol) 0.25 mcg DAILY GTB Last administered on 10/08/16 09:47 ; Admin Dose 0.25 MCG; Start 09/07/16 at 09:00 Chlorhexidine Gluconate (Peridex) 15 ml BID MM Last administered on 10/08/16 09:46; Admin Dose 15 ML; Start 09/07/16 at 09:00 Famotidine (Pepcid) 40 mg DAILY GTB Last administered on 10/08/16 09:47; Admin Dose 40 MG; Start 09/07/16 at 09:00 Lansoprazole (Prevacid) 30 mg BID@,18 GTB Last administered on 10/08/16 08: 03; Admin Dose 30 MG; Start 09/07/16 at 06:00 Levetiracetam (Keppra Liquid) 500 mg BID GTB Last administered on 10/08/16 09: 47; Admin Dose 500 MG; Start 09/07/16 at 09:00 Metoclopramide HCl (Reglan) 5 mg Q8H PRN GTB NAUSEA AND/OR VOMITING; Start 09/06 at 22:30 Sucralfate (Carafate Susp) 1 gm BID GTB Last administered on 10/08/16 09:47; Admin Dose 1 GM; Start 09/07/16 at 09:00 Ondansetron HCl (Zofran Inj) 4 mg Q6H PRN IV NAUSEA AND/OR VOMITING Last administered on 09/17/16 00:52; Admin Dose 4 MG; Start 09/06/16 at 22:30 Morphine Sulfate (morphine) 2 mg Q4H PRN IV PAIN LEVEL 7-10 Last administered on 09/16/16 20:19; Admin Dose 2 MG; Start 09/06/16 at 22:30 Metoclopramide HCl (Reglan) 5 mg Q6H PRN IV RESIDUALS > 100; Start 09/10/16 at 19:00 Clonidine (Catapres) 0.1 mg Q6H PRN GTB ELEVATED SYSTOLIC BP Last administered on 09/15/16 07:04; Admin Dose 0.1 MG; Start 09/13/16 at 23:00 Hydralazine HCl (Apresoline) 10 mg Q6H PRN IV ELEVATED SYSTOLIC BP Last administered on 09/15/16 02:08; Admin Dose 10 MG; Start 09/15/16 at 01:50 Collagenase (Santyl) 1 applic DAILY TOP Last administered on 10/08/16 09:48; Admin Dose 1 APPLIC; Start 09/18/16 at 09:00 Glycopyrrolate (Robinul) 1 mg Q8 GTB Last administered on 10/08/16 14:09; Admin Dose 1 MG; Start 09/19/16 at 09:30 Amikacin Sulfate (Amikacin Iv Per Pharmacy) AMIKACIN PER PHARMACY NOTE XX ; Start 09/24/16 at 14:00 Miscellaneous Information 1 ea NOTE XX ; Start 09/28/16 at 09:00 Glucose (Glutose) 15 gm Q15M PRN PO DECREASED GLUCOSE; Start 09/28/16 at 09:00 Glucose (Glutose) 22.5 gm Q15M PRN PO DECREASED GLUCOSE; Start 09/28/16 at 09:00 Dextrose (D50w Syringe) 25 ml Q15M PRN IV DECREASED GLUCOSE Last administered on 09/29/16 18:18; Admin Dose 25 ML; Start 09/28/16 at 09:00 Dextrose (D50w Syringe) 50 ml Q15M PRN IV DECREASED GLUCOSE; Start 09/28/16 at 09:00 Glucagon (Glucagen) 1 mg Q15M PRN IM DECREASED GLUCOSE; Start 09/28/16 at 09:00 Glucose (Glutose) 15 gm Q15M PRN BUCCAL DECREASED GLUCOSE; Start 09/28/16 at 09: 00 Insulin Aspart (Novolog Insulin Pen) NOVOLOG *MILD* ALGORI... Q6 SC Last administered on 10/08/16 12:09; Admin Dose 2 UNIT; Start 09/29/16 at 00:00 IV Flush (NS 10 ml) 10 ml PRN PRN IV FLUSH LINE; Start 09/29/16 at 20:30 Epoetin Jeffry 6000 units 6,000 units MoWeFr@17 SC Last administered on 19:06; Admin Dose 6,000 UNITS; Start 10/01/16 at 17:00 Ciprofloxacin/ Dextrose (Cipro Ivpb) 100 ml @ 100 mls/hr Q24H IVPB Last administered on 10/07/16 18:03; Admin Dose 100 MLS/HR; Start 10/07/16 at 17:30 Miscellaneous Information (*Rx Drug Level Order Reminder*) 1 ONCE ONCE XX ; Start 10/09/16 at 05:00; Stop 10/09/16 at 05:01 KENIA TURCIOS MD Oct 08, 2016 17:18
[2016-10-08] MEDS: CIPROFLOXACIN 200 MG/D5W IVPB 100 ML IVPB SCH (17:43)
[2016-10-08] MEDS: EPOETIN 3000 UNITS/1 ML INJ (ESRD) SC SCH (17:47)
--- NOTE | 2016-10-08 19:19 | PN ---
Date/Time of Note Date/Time of Note DATE: 10/08/16 TIME: 19:14 Assessment/Plan VTE Prophylaxis VTE Prophylaxis Intervention: SCD's Lines/Catheters IV Catheter Type (from [facility]): PICC Line Central line still needed: Yes Urinary Cath still in place: Yes Reason Cath still needed: urinary retention Assessment/Plan Chief Complaint/Hosp Course ASSESSMENT AND PLAN: - Heparin-induced thrombocytopenia, hold heparin, patient status post platelets transfusion. Dr. Coughlin is following in hematology consultation. - GNR bacteremia, will d/c PICC. - Severe anemia 2 GI bleed. Continue to monitor hemoglobin and hematocrit. Dr. Singh is following in gastroenterology consultation. -Hypovolemic shock, resolved. - Acute kidney failure on chronic kidney disease. Continue to monitor BUN and creatinine. Dr. Mk Purdy is following in nephrology consultation. Patient with worsening renal function. Started on Hemodialysis during this admission. - Pancytopenia 2 chronic inflammation and sepsis. - Ventilator-dependent respiratory failure. Dr. Aragon is following in pulmonology consultation. Continue ventilator support, bronchodilators. - HCAP on admission. Status post treatment. - Dysphagia with PEG. - History of seizure disorder. Continue patient on Keppra. - Diastolic dysfunction congestive heart failure with preserved ejection fraction of 60%. - S/p sepsis. Dr. Guy is following patient in infectious disease consultation. - Status post cerebrovascular accident, status post craniotomy. - Mental retardation. Continue Protonix for peptic ulcer disease prophylaxis. Further recommendations based on clinical course. Plan of care discussed with Dr. Mcelroy. Problems: Exam/Review of Systems Vital Signs Vitals Vital Signs Date Time Temp Pulse Resp B/P Pulse Ox O2 Delivery O2 Flow Rate FiO2 10/08/16 17:50 102 14 100 40 10/08/16 15:15 98.4 91/44 10/05/16 21:21 Mechanical Ventilator Intake and Output 10/07/16 10/07/16 10/08/16 15:00 23:00 07:00 Intake Total 680 ml 1190 ml Output Total 50 ml 60 ml Balance 630 ml 1130 ml Exam Constitutional: alert, well developed Head: atraumatic, normocephalic Eyes: nl conjunctiva ENMT: nl external ears & nose Neck: jvd, supple Respiratory: clear to auscultation Cardiovascular: regular rate and rhythm Gastrointestinal: nl liver, spleen, soft Genitourinary - Male: nl penis, other ( Brar catheter ) Musculoskeletal: nl extremities to inspection, Extremities: normal pulses, bilateral LE s/p vascular intervention Results Result Diagram: 10/08/1644 10/08/1644 Results 24 hrs Laboratory Tests Test 10/08/16 01:10 10/08/16 05:44 10/08/16 08:35 10/08/16 12:01 Bedside Glucose 172 178 198 Anion Gap 10 Basophils # 0.0 Basophils % 0.0 Blood Urea Nitrogen 81 H Calcium Level 8.6 Carbon Dioxide Level 28 Chloride Level 100 Creatinine 1.55 H Eosinophils # 0.1 Eosinophils % 2.3 Glucose Level 152 # Hematocrit 22.0 L Hemoglobin 7.2 L Lymphocytes # 0.3 L Lymphocytes % 7.5 L Mean Corpuscular Hemoglobin 30.0 Mean Corpuscular Hemoglobin Concent 32.7 Mean Corpuscular Volume 91.7 Mean Platelet Volume 11.1 H Monocytes # 0.3 Monocytes % 8.6 Neutrophils # 2.8 Neutrophils % 80.4 H Nucleated Red Blood Cells # 0.0 Nucleated Red Blood Cells % 0.0 Platelet Count 18 #*L Potassium Level 4.2 Red Blood Count 2.40 L Red Cell Distribution Width 17.8 H Sodium Level 134 L White Blood Count 3.5 L Test 10/08/16 17:41 Bedside Glucose 181 Medications Medications Current Medications Acetaminophen (Tylenol Liquid) 640 mg Q6H PRN GTB PAIN OR TEMP ABOVE 38C Last administered on 10/07/16 17:51; Admin Dose 640 MG; Start 09/06/16 at 22:30 Allopurinol (Zyloprim) 200 mg DAILY GTB Last administered on 10/08/16 09:47; Admin Dose 200 MG; Start 09/07/16 at 09:00 Ascorbic Acid (Vitamin C) 500 mg BID GTB Last administered on 10/08/16 09:47; Admin Dose 500 MG; Start 09/07/16 at 09:00 Calcitriol (Rocaltrol) 0.25 mcg DAILY GTB Last administered on 10/08/16 09:47 ; Admin Dose 0.25 MCG; Start 09/07/16 at 09:00 Chlorhexidine Gluconate (Peridex) 15 ml BID MM Last administered on 10/08/16 09:46; Admin Dose 15 ML; Start 09/07/16 at 09:00 Famotidine (Pepcid) 40 mg DAILY GTB Last administered on 10/08/16 09:47; Admin Dose 40 MG; Start 09/07/16 at 09:00 Lansoprazole (Prevacid) 30 mg BID@18 GTB Last administered on 10/08/16 17: 43; Admin Dose 30 MG; Start 09/07/16 at 06:00 Levetiracetam (Keppra Liquid) 500 mg BID GTB Last administered on 10/08/16 09: 47; Admin Dose 500 MG; Start 09/07/16 at 09:00 Metoclopramide HCl (Reglan) 5 mg Q8H PRN GTB NAUSEA AND/OR VOMITING; Start 09/06 at 22:30 Sucralfate (Carafate Susp) 1 gm BID GTB Last administered on 10/08/16 09:47; Admin Dose 1 GM; Start 09/07/16 at 09:00 Ondansetron HCl (Zofran Inj) 4 mg Q6H PRN IV NAUSEA AND/OR VOMITING Last administered on 09/17/16 00:52; Admin Dose 4 MG; Start 09/06/16 at 22:30 Morphine Sulfate (morphine) 2 mg Q4H PRN IV PAIN LEVEL 7-10 Last administered on 09/16/16 20:19; Admin Dose 2 MG; Start 09/06/16 at 22:30 Metoclopramide HCl (Reglan) 5 mg Q6H PRN IV RESIDUALS > 100; Start 09/10/16 at 19:00 Clonidine (Catapres) 0.1 mg Q6H PRN GTB ELEVATED SYSTOLIC BP Last administered on 09/15/16 07:04; Admin Dose 0.1 MG; Start 09/13/16 at 23:00 Hydralazine HCl (Apresoline) 10 mg Q6H PRN IV ELEVATED SYSTOLIC BP Last administered on 09/15/16 02:08; Admin Dose 10 MG; Start 09/15/16 at 01:50 Collagenase (Santyl) 1 applic DAILY TOP Last administered on 10/08/16 09:48; Admin Dose 1 APPLIC; Start 09/18/16 at 09:00 Glycopyrrolate (Robinul) 1 mg Q8 GTB Last administered on 10/08/16 14:09; Admin Dose 1 MG; Start 09/19/16 at 09:30 Amikacin Sulfate (Amikacin Iv Per Pharmacy) AMIKACIN PER PHARMACY NOTE XX ; Start 09/24/16 at 14:00 Miscellaneous Information 1 ea NOTE XX ; Start 09/28/16 at 09:00 Glucose (Glutose) 15 gm Q15M PRN PO DECREASED GLUCOSE; Start 09/28/16 at 09:00 Glucose (Glutose) 22.5 gm Q15M PRN PO DECREASED GLUCOSE; Start 09/28/16 at 09:00 Dextrose (D50w Syringe) 25 ml Q15M PRN IV DECREASED GLUCOSE Last administered on 09/29/16 18:18; Admin Dose 25 ML; Start 09/28/16 at 09:00 Dextrose (D50w Syringe) 50 ml Q15M PRN IV DECREASED GLUCOSE; Start 09/28/16 at 09:00 Glucagon (Glucagen) 1 mg Q15M PRN IM DECREASED GLUCOSE; Start 09/28/16 at 09:00 Glucose (Glutose) 15 gm Q15M PRN BUCCAL DECREASED GLUCOSE; Start 09/28/16 at 09: 00 Insulin Aspart (Novolog Insulin Pen) NOVOLOG *MILD* ALGORI... Q6 SC Last administered on 10/08/16 12:09; Admin Dose 2 UNIT; Start 09/29/16 at 00:00 IV Flush (NS 10 ml) 10 ml PRN PRN IV FLUSH LINE; Start 09/29/16 at 20:30 Epoetin Jeffry 6000 units 6,000 units MoWeFr@17 SC Last administered on 17:47; Admin Dose 6,000 UNITS; Start 10/01/16 at 17:00 Ciprofloxacin/ Dextrose (Cipro Ivpb) 100 ml @ 100 mls/hr Q24H IVPB Last administered on 10/08/16 17:43; Admin Dose 100 MLS/HR; Start 10/07/16 at 17:30 Miscellaneous Information (*Rx Drug Level Order Reminder*) 1 ONCE ONCE XX ; Start 10/09/16 at 05:00; Stop 10/09/16 at 05:01 QUIN ORITZ Oct 08, 2016 19:19
[2016-10-09] VITALS (56 sets, daily range): BP systolic 43–111; BP diastolic 25–59; PULSE 57–120; RESP 0–21
[2016-10-09] MEDS: INSULIN ASPART [NOVOLOG] 3 ML PEN SC SCH ×4 (00:56→17:59)
[2016-10-09] MEDS: SOD CHLORIDE 0.9% 1,000 ML IV SCH ×2 (00:59→20:00)
[2016-10-09] MEDS: IPRATROPIUM (HFA) 12.9 GM INHALER INH SCH ×4 (02:06→19:14)
[2016-10-09] MEDS: LEVALBUTEROL (HFA) 15 GM INHALER INH SCH ×4 (02:06→19:13)
[2016-10-09] MEDS ORDERED: [UNRECOGNIZED DRUG - REMARK] XX ONE (05:00)
[2016-10-09] MEDS: GLYCOPYRROLATE 1 MG TAB GTB SCH ×3 (06:37→22:47)
[2016-10-09] MEDS: LANSOPRAZOLE 30 MG CAP GTB SCH (06:37)
[2016-10-09 07:32] LABS: ADD SCAN DIFF NO
[2016-10-09] MEDS ORDERED: SOD CHLORIDE 0.9% 500 ML IV ONE (08:00)
[2016-10-09] MEDS ORDERED: NORepinephrine 8MG/250 ML (PMX 250 ML IV SCH (08:28)
[2016-10-09 08:29] LABS: AADO2 Arterial 383.5 mmHg (7.0-24.0); Allen Test ACCEPTAB; Arterial Base Excess -2.1 mmol/L (-3.0-3); Arterial COHb 1.5 % (0.0-3.0); Arterial Fraction of Oxyhgb 96.8 % (93.0-99.0); Arterial HCO3 23.4 mmol/L (22.0-26.0); Arterial MetHb 0.6 % (0.0-1.5); Arterial Total Hemglobin 3.8 g/dl (12.0-18.0); MODE VENT - AC
[2016-10-09] MEDS ORDERED: ALBUMIN HUMAN 25% 100 ML ONE (08:49)
--- NOTE | 2016-10-09 08:53 | CONS ---
Date/Time of Note Date/Time of Note DATE: 10/09/16 TIME: 08:51 Assessment/Plan Assessment/Plan Additional Assessment/Plan 1. Acute kidney injury on possible chronic kidney disease unknown stage secondary to severe prerenal azotemia causing ischemic acute tubular necrosis in the setting of severe anemia.- continue to have Anuria with uremic symptoms and GI bleeding- started on HD during this admission 2. Severe anemia,s/p PRBC 3. Chronic respiratory failure, status post tracheostomy, on vent. 4. Pancytopenia. 5. History of a seizure disorder. 6. thrombocytopenia 7. Hypotension PLAN: pt BP is very low, Systolic 50s, will hold off on HD, give albumin, Levophed gtt prn transfusion as needed, ok to transfuse without HD will continue to follow up on patient Consultation Date/Type/Reason Admit Date/Time Sep 06, 2016 at 22:27 Initial Consult Date Aug Type of Consultation: NEPHROLOGY Referring Provider: FREDDY COELLO MD 24 HR Interval Summary Free Text/Dictation pt transferred to ICU Due to hypotension, septic shock Exam/Review of Systems Vital Signs Vitals Vital Signs Date Time Temp Pulse Resp B/P Pulse Ox O2 Delivery O2 Flow Rate FiO2 10/09/16 06:00 101 14 98 40 10/09/16 04:49 98.6 68/32 10/05/16 21:21 Mechanical Ventilator Intake and Output 10/08/16 10/08/16 10/09/16 15:00 23:00 07:00 Intake Total 820 ml 585 ml Output Total 50 ml 50 ml Balance 770 ml 535 ml Exam GENERAL: chronically ill-appearing, middle-aged man who is lying comfortably in bed. HEENT: Head atraumatic, normocephalic. Sclerae anicteric. Buccal mucosa dry. NECK: Supple. Tracheostomy present. CHEST: Rise symmetrical. Breath sounds diminished. HEART: S1, S2. ABDOMEN: Soft, bowel tones present. EXTREMITIES: Without cyanosis. Contractured. + permacath Right IJ Results Result Diagram: 10/08/16 0544 10/08/16 0544 Results 24 hrs Laboratory Tests Test 10/08/16 12:01 10/08/16 17:41 10/09/16 00:51 10/09/16 06:46 Bedside Glucose 198 181 166 132 Test 10/09/16 06:58 10/09/16 07:51 10/09/16 08:21 Random Vancomycin Level 15.7 Bedside Glucose 136 Arterial Blood HCO3 23.4 Arterial Blood Base Excess -2.1 Arterial Blood Oxygen Saturation 98.9 H Tremaine Test ACCEPTAB Arterial Blood Gas Puncture Site Right Radial Arterial Blood Carboxyhemoglobin 1.5 Arterial Blood Date Drawn 10/09/2016 8:20:59 AM Arterial Blood Methemoglobin 0.6 Arterial Blood pCO2 (Temp correct) 44.4 Arterial Blood pH (Temp corrected) 7.340 L Arterial Blood pO2 (Temp corrected) 285.1 H Blood Gas A-a O2 Differential 383.5 H Blood Gas Actual Respiration Rate 14 Blood Gas Low PEEP Setting 5.0 Blood Gas Modality VENT - AC Blood Gas Notified Time 10/09/2016 8:29:20 AM Blood Gas Notified Whom JLD Blood Gas Respiration Rate 14.0 Blood Gas Specimen Source Blood arterial Blood Gas Temperature 37.0 Blood Gas Tidal Volume 500.0 FiO2 100.0 Oxyhemoglobin Percent 96.8 Total Hemoglobin 3.8 L Medications Medications Current Medications Acetaminophen (Tylenol Liquid) 640 mg Q6H PRN GTB PAIN OR TEMP ABOVE 38C Last administered on 10/07/16 17:51; Admin Dose 640 MG; Start 09/06/16 at 22:30 Allopurinol (Zyloprim) 200 mg DAILY GTB Last administered on 10/08/16 09:47; Admin Dose 200 MG; Start 09/07/16 at 09:00 Ascorbic Acid (Vitamin C) 500 mg BID GTB Last administered on 10/08/16 21:12; Admin Dose 500 MG; Start 09/07/16 at 09:00 Calcitriol (Rocaltrol) 0.25 mcg DAILY GTB Last administered on 10/08/16 09:47 ; Admin Dose 0.25 MCG; Start 09/07/16 at 09:00 Chlorhexidine Gluconate (Peridex) 15 ml BID MM Last administered on 10/08/16 21:12; Admin Dose 15 ML; Start 09/07/16 at 09:00 Famotidine (Pepcid) 40 mg DAILY GTB Last administered on 10/08/16 09:47; Admin Dose 40 MG; Start 09/07/16 at 09:00 Lansoprazole (Prevacid) 30 mg BID@ GTB Last administered on 10/09/16 06: 37; Admin Dose 30 MG; Start 09/07/16 at 06:00 Levetiracetam (Keppra Liquid) 500 mg BID GTB Last administered on 10/08/16 21: 12; Admin Dose 500 MG; Start 09/07/16 at 09:00 Metoclopramide HCl (Reglan) 5 mg Q8H PRN GTB NAUSEA AND/OR VOMITING; Start 09/06 at 22:30 Sucralfate (Carafate Susp) 1 gm BID GTB Last administered on 10/08/16 21:12; Admin Dose 1 GM; Start 09/07/16 at 09:00 Ondansetron HCl (Zofran Inj) 4 mg Q6H PRN IV NAUSEA AND/OR VOMITING Last administered on 09/17/16 00:52; Admin Dose 4 MG; Start 09/06/16 at 22:30 Morphine Sulfate (morphine) 2 mg Q4H PRN IV PAIN LEVEL 7-10 Last administered on 09/16/16 20:19; Admin Dose 2 MG; Start 09/06/16 at 22:30 Metoclopramide HCl (Reglan) 5 mg Q6H PRN IV RESIDUALS > 100; Start 09/10/16 at 19:00 Clonidine (Catapres) 0.1 mg Q6H PRN GTB ELEVATED SYSTOLIC BP Last administered on 09/15/16 07:04; Admin Dose 0.1 MG; Start 09/13/16 at 23:00 Hydralazine HCl (Apresoline) 10 mg Q6H PRN IV ELEVATED SYSTOLIC BP Last administered on 09/15/16 02:08; Admin Dose 10 MG; Start 09/15/16 at 01:50 Collagenase (Santyl) 1 applic DAILY TOP Last administered on 10/08/16 09:48; Admin Dose 1 APPLIC; Start 09/18/16 at 09:00 Glycopyrrolate (Robinul) 1 mg Q8 GTB Last administered on 10/09/16 06:37; Admin Dose 1 MG; Start 09/19/16 at 09:30 Amikacin Sulfate (Amikacin Iv Per Pharmacy) AMIKACIN PER PHARMACY NOTE XX ; Start 09/24/16 at 14:00 Miscellaneous Information 1 ea NOTE XX ; Start 09/28/16 at 09:00 Glucose (Glutose) 15 gm Q15M PRN PO DECREASED GLUCOSE; Start 09/28/16 at 09:00 Glucose (Glutose) 22.5 gm Q15M PRN PO DECREASED GLUCOSE; Start 09/28/16 at 09:00 Dextrose (D50w Syringe) 25 ml Q15M PRN IV DECREASED GLUCOSE Last administered on 09/29/16 18:18; Admin Dose 25 ML; Start 09/28/16 at 09:00 Dextrose (D50w Syringe) 50 ml Q15M PRN IV DECREASED GLUCOSE; Start 09/28/16 at 09:00 Glucagon (Glucagen) 1 mg Q15M PRN IM DECREASED GLUCOSE; Start 09/28/16 at 09:00 Glucose (Glutose) 15 gm Q15M PRN BUCCAL DECREASED GLUCOSE; Start 09/28/16 at 09: 00 Insulin Aspart (Novolog Insulin Pen) NOVOLOG *MILD* ALGORI... Q6 SC Last administered on 10/09/16 00:56; Admin Dose 1 UNIT; Start 09/29/16 at 00:00 IV Flush (NS 10 ml) 10 ml PRN PRN IV FLUSH LINE; Start 09/29/16 at 20:30 Epoetin Jeffry 6000 units 6,000 units MoWeFr@17 SC Last administered on 17:47; Admin Dose 6,000 UNITS; Start 10/01/16 at 17:00 Ciprofloxacin/ Dextrose 100 ml @ 100 mls/hr Q24H IVPB Last administered on 17:43; Admin Dose 100 MLS/HR; Start 10/07/16 at 17:30 Sodium Chloride 1,000 ml @ 50 mls/hr Q20H IV Last administered on 10/09/16 00 :59; Admin Dose 50 MLS/HR; Start 10/09/16 at 00:00 Norepinephrine (Levophed) 250 ml @ 1.875 mls/ hr TITRATE IV ; Start 10/09/16 at 08:46 KENIA TURCIOS MD Oct 09, 2016 08:52
[2016-10-09 08:59] LABS: POTASSIUM 4.6 mmol/L (3.5-5.1)
[2016-10-09] MEDS ORDERED: ALBUMIN HUMAN 25% 100 ML IV ONE (09:00)
[2016-10-09] MEDS: NORepinephrine 8MG/250 ML (PMX 250 ML IV SCH ×3 (09:01→22:18)
[2016-10-09 09:02] LABS: CREATININE 1.86 mg/dl (0.61-1.24)
[2016-10-09 09:03] LABS: CALCIUM 7.9 mg/dl (8.4-10.2)
[2016-10-09] MEDS ORDERED: SOD CHLORIDE 0.9% 250 ML IV* ONE (10:37)
[2016-10-09 10:54] LABS: ABNORMAL IP MESSAGE 1; HEMATOCRIT 10.4 % (42.0-52.0); MEAN CORPUSCULAR HEMOGLOBIN 29.6 pg (29.0-33.0); MEAN CORPUSCULAR HGB CONC 30.8 g/dl (32.0-37.0); MEAN CORPUSCULAR VOLUME 96.3 fl (82.0-101.0); MEAN PLATELET VOLUME 13.3 fl (7.4-10.4); RED BLOOD COUNT 1.08 10^6/ul (4.70-6.10); RED CELL DISTRIBUTION WIDTH 18.3 % (11.5-14.5); WHITE BLOOD COUNT 9.6 10^3/ul (4.8-10.8)
[2016-10-09 10:57] LABS: HEMOGLOBIN 3.2 g/dl (14.0-18.0); PLATELET COUNT 19 10^3/UL (140-415)
[2016-10-09] MEDS ORDERED: MIDAZOLAM (DRIP) 50 mg/50 mL 50 ML IV SCH (11:00)
[2016-10-09] MEDS: SEVELAMER CARBONATE 2.4 GM PKT GTB SCH ×3 (11:30→17:56)
--- NOTE | 2016-10-09 11:34 | PN ---
Date/Time of Note Date/Time of Note DATE: 10/09/16 TIME: 11:22 Assessment/Plan VTE Prophylaxis VTE Prophylaxis Intervention: SCD's Lines/Catheters IV Catheter Type (from [facility]): PICC Line Central line still needed: Yes Urinary Cath still in place: Yes Reason Cath still needed: urinary retention Assessment/Plan Chief Complaint/Hosp Course ASSESSMENT AND PLAN: - Shock hypovolemic, possibly septic. Continue ICU care, IVF, pressors, blood transfusion. - Heparin-induced thrombocytopenia, hold heparin, patient status post platelets transfusion. Dr. Coughlin is following in hematology consultation. - GNR bacteremia, d/c PICC was ordered on Saturday. I spoke to SERVICE LIAISON REPRESENTATIVEJOAQUINA Dc re change PICC line to a different site. - Severe anemia 2 GI bleed. Continue to monitor hemoglobin and hematocrit. Dr. Singh is following in gastroenterology consultation. - Acute kidney failure on chronic kidney disease. Continue to monitor BUN and creatinine. Dr. Mk Purdy is following in nephrology consultation. Patient with worsening renal function. Started on Hemodialysis during this admission. - Pancytopenia 2 chronic inflammation and sepsis. - Ventilator-dependent respiratory failure. Dr. Aragon is following in pulmonology consultation. Continue ventilator support, bronchodilators. - HCAP on admission. Status post treatment. - Dysphagia with PEG. - History of seizure disorder. Continue patient on Keppra. - Diastolic dysfunction congestive heart failure with preserved ejection fraction of 60%. - S/p sepsis on admission. Dr. Guy is following patient in infectious disease consultation. - Status post cerebrovascular accident, status post craniotomy. - Mental retardation. Continue Protonix for peptic ulcer disease prophylaxis. Further recommendations based on clinical course. Plan of care discussed with Dr. Mcelroy. Problems: Subjective 24 Hr Interval Summary Free Text/Dictation Patient was transferred to intensive care unit due to low blood pressure, patient also had a drop in hemoglobin and diarrhea. Patient is started on IV fluid on and pressors. Blood transfusion is ordered stat. According to JOAQUINA Dc , patient's family daughter contacted and informed about change in patient's condition and she still wants everything to be done. Exam/Review of Systems Vital Signs Vitals Vital Signs Date Time Temp Pulse Resp B/P Pulse Ox O2 Delivery O2 Flow Rate FiO2 10/09/16 10:56 111 14 100 50 10/09/16 07:25 66/32 Mechanical Ventilator 10/09/16 04:49 98.6 Intake and Output 10/08/16 10/08/16 10/09/16 15:00 23:00 07:00 Intake Total 820 ml 585 ml Output Total 50 ml 50 ml Balance 770 ml 535 ml Exam Constitutional: alert, well developed Head: atraumatic, normocephalic Eyes: nl conjunctiva ENMT: nl external ears & nose Neck: jvd, supple Respiratory: clear to auscultation Cardiovascular: regular rate and rhythm Gastrointestinal: nl liver, spleen, soft Genitourinary - Male: nl penis, other ( Brar catheter ) Musculoskeletal: nl extremities to inspection, Extremities: normal pulses, bilateral LE s/p vascular intervention Results Result Diagram: 10/09/16 0947 10/09/16 0658 Results 24 hrs Laboratory Tests Test 10/08/16 12:01 10/08/16 17:41 10/09/16 00:51 10/09/16 06:46 Bedside Glucose 198 181 166 132 Test 10/09/16 06:58 10/09/16 07:51 10/09/16 08:21 10/09/16 09:47 Anion Gap 14 Blood Urea Nitrogen 110 H Calcium Level 7.9 L Carbon Dioxide Level 22 Chloride Level 101 Creatinine 1.86 H Glucose Level 102 # Potassium Level 4.6 Random Vancomycin Level 15.7 Sodium Level 132 L Bedside Glucose 136 Arterial Blood HCO3 23.4 Arterial Blood Base Excess -2.1 Arterial Blood Oxygen Saturation 98.9 H Tremaine Test ACCEPTAB Arterial Blood Gas Puncture Site Right Radial Arterial Blood Carboxyhemoglobin 1.5 Arterial Blood Date Drawn 10/09/2016 8:20:59 AM Arterial Blood Methemoglobin 0.6 Arterial Blood pCO2 (Temp correct) 44.4 Arterial Blood pH (Temp corrected) 7.340 L Arterial Blood pO2 (Temp corrected) 285.1 H Blood Gas A-a O2 Differential 383.5 H Blood Gas Actual Respiration Rate 14 Blood Gas Low PEEP Setting 5.0 Blood Gas Modality VENT - AC Blood Gas Notified Time 10/09/2016 8:29:20 AM Blood Gas Notified Whom JLD Blood Gas Respiration Rate 14.0 Blood Gas Specimen Source Blood arterial Blood Gas Temperature 37.0 Blood Gas Tidal Volume 500.0 FiO2 100.0 Oxyhemoglobin Percent 96.8 Total Hemoglobin 3.8 L Eosinophils # Eosinophils % Hematocrit 10.4 #L Hemoglobin 3.2 #*L Lymphocytes # Lymphocytes % Mean Corpuscular Hemoglobin 29.6 Mean Corpuscular Hemoglobin Concent 30.8 L Mean Corpuscular Volume 96.3 Mean Platelet Volume 13.3 H Monocytes # Monocytes % Neutrophils # Neutrophils % Platelet Count 19 *L Red Blood Count 1.08 #L Red Cell Distribution Width 18.3 H White Blood Count 9.6 # Medications Medications Current Medications Acetaminophen (Tylenol Liquid) 640 mg Q6H PRN GTB PAIN OR TEMP ABOVE 38C Last administered on 10/07/16 17:51; Admin Dose 640 MG; Start 09/06/16 at 22:30 Allopurinol (Zyloprim) 200 mg DAILY GTB Last administered on 10/08/16 09:47; Admin Dose 200 MG; Start 09/07/16 at 09:00 Ascorbic Acid (Vitamin C) 500 mg BID GTB Last administered on 10/08/16 21:12; Admin Dose 500 MG; Start 09/07/16 at 09:00 Calcitriol (Rocaltrol) 0.25 mcg DAILY GTB Last administered on 10/08/16 09:47 ; Admin Dose 0.25 MCG; Start 09/07/16 at 09:00 Chlorhexidine Gluconate (Peridex) 15 ml BID MM Last administered on 10/08/16 21:12; Admin Dose 15 ML; Start 09/07/16 at 09:00 Famotidine (Pepcid) 40 mg DAILY GTB Last administered on 10/08/16 09:47; Admin Dose 40 MG; Start 09/07/16 at 09:00 Lansoprazole (Prevacid) 30 mg BID@,18 GTB Last administered on 10/09/16 06: 37; Admin Dose 30 MG; Start 09/07/16 at 06:00 Levetiracetam (Keppra Liquid) 500 mg BID GTB Last administered on 10/08/16 21: 12; Admin Dose 500 MG; Start 09/07/16 at 09:00 Metoclopramide HCl (Reglan) 5 mg Q8H PRN GTB NAUSEA AND/OR VOMITING; Start 09/06 at 22:30 Sucralfate (Carafate Susp) 1 gm BID GTB Last administered on 10/08/16 21:12; Admin Dose 1 GM; Start 09/07/16 at 09:00 Ondansetron HCl (Zofran Inj) 4 mg Q6H PRN IV NAUSEA AND/OR VOMITING Last administered on 09/17/16 00:52; Admin Dose 4 MG; Start 09/06/16 at 22:30 Morphine Sulfate (morphine) 2 mg Q4H PRN IV PAIN LEVEL 7-10 Last administered on 09/16/16 20:19; Admin Dose 2 MG; Start 09/06/16 at 22:30 Metoclopramide HCl (Reglan) 5 mg Q6H PRN IV RESIDUALS > 100; Start 09/10/16 at 19:00 Clonidine (Catapres) 0.1 mg Q6H PRN GTB ELEVATED SYSTOLIC BP Last administered on 09/15/16 07:04; Admin Dose 0.1 MG; Start 09/13/16 at 23:00 Hydralazine HCl (Apresoline) 10 mg Q6H PRN IV ELEVATED SYSTOLIC BP Last administered on 09/15/16 02:08; Admin Dose 10 MG; Start 09/15/16 at 01:50 Collagenase (Santyl) 1 applic DAILY TOP Last administered on 10/08/16 09:48; Admin Dose 1 APPLIC; Start 09/18/16 at 09:00 Glycopyrrolate (Robinul) 1 mg Q8 GTB Last administered on 10/09/16 06:37; Admin Dose 1 MG; Start 09/19/16 at 09:30 Amikacin Sulfate (Amikacin Iv Per Pharmacy) AMIKACIN PER PHARMACY NOTE XX ; Start 09/24/16 at 14:00 Miscellaneous Information 1 ea NOTE XX ; Start 09/28/16 at 09:00 Glucose (Glutose) 15 gm Q15M PRN PO DECREASED GLUCOSE; Start 09/28/16 at 09:00 Glucose (Glutose) 22.5 gm Q15M PRN PO DECREASED GLUCOSE; Start 09/28/16 at 09:00 Dextrose (D50w Syringe) 25 ml Q15M PRN IV DECREASED GLUCOSE Last administered on 09/29/16 18:18; Admin Dose 25 ML; Start 09/28/16 at 09:00 Dextrose (D50w Syringe) 50 ml Q15M PRN IV DECREASED GLUCOSE; Start 09/28/16 at 09:00 Glucagon (Glucagen) 1 mg Q15M PRN IM DECREASED GLUCOSE; Start 09/28/16 at 09:00 Glucose (Glutose) 15 gm Q15M PRN BUCCAL DECREASED GLUCOSE; Start 09/28/16 at 09: 00 Insulin Aspart (Novolog Insulin Pen) NOVOLOG *MILD* ALGORI... Q6 SC Last administered on 10/09/16 00:56; Admin Dose 1 UNIT; Start 09/29/16 at 00:00 IV Flush (NS 10 ml) 10 ml PRN PRN IV FLUSH LINE; Start 09/29/16 at 20:30 Epoetin Jeffry 6000 units 6,000 units MoWeFr@17 SC Last administered on 17:47; Admin Dose 6,000 UNITS; Start 10/01/16 at 17:00 Ciprofloxacin/ Dextrose 100 ml @ 100 mls/hr Q24H IVPB Last administered on 17:43; Admin Dose 100 MLS/HR; Start 10/07/16 at 17:30 Sodium Chloride 1,000 ml @ 50 mls/hr Q20H IV Last administered on 10/09/16 00 :59; Admin Dose 50 MLS/HR; Start 10/09/16 at 00:00 Norepinephrine 250 ml @ 1.875 mls/ hr TITRATE IV Last administered on 09:29; Admin Dose 3.75 MLS/HR; Start 10/09/16 at 08:46 Vancomycin HCl/ Sodium Chloride (Vancocin/NS) 250 ml @ 83.333 mls/ hr Q96H IVPB ; Start 10/09/16 at 17:00 QUIN ORTIZ Oct 09, 2016 11:33
--- NOTE | 2016-10-09 11:37 | RADRPT ---
PROCEDURE: XR Chest. CLINICAL INDICATION: Assess PICC line catheter placement. TECHNIQUE: Single frontal view of the chest was obtained COMPARISON: Chest x-ray 10/07/2016 03:08 p.m. FINDINGS: The soft tissues are normal. There are degenerative osteophytes in the thoracic spine. The the hea rt is enlarged but is borders are partially obscured by surrounding infiltrates. The cardiomediasti nal silhouette, pulmonary vasculature and hilar structures are normal. Atherosclerotic calcification s are noted in the aortic arch. There are bilateral mixed interstitial and alveolar infiltrates in t he lungs associated with bilateral pleural effusions consistent with CHF. A PICC line catheter is no t identified. There is a dialysis catheter projecting with its tip in the right atrium. There is a tracheostomy tube well positioned 1.5 cm superior to the cailin. IMPRESSION: 1. Cardiomegaly with interstitial pulmonary edema and bilateral pleural effusions suspicious for CHF . The interstitial pulmonary edema has worsened slightly compared to 10/07/2016. 2. The PICC line catheter previously identified entering the left arm is no longer visualized. No new PICC line catheter is identified in the field of view. Satisfactory positioning of the tracheost juan josé tube. 3. No other interval changes are noted. RPTAT:AAJJ Physician Leslie Date Time Electronically viewed and signed by Smooth Morrow Physician on 10/09/2016 11:37 CLAY/
[2016-10-09] MEDS ORDERED: LIDOCAINE 1% (MDV) 20 ML INJ SC ONE (12:30)
[2016-10-09 12:44] LABS: LYMPHOCYTES # 1.3 10^3/ul (0.8-2.9); MONOCYTE # 0.7 10^3/ul (0.3-0.9); NEUTROPHIL # 6.3 10^3/ul (1.6-7.5)
[2016-10-09 12:45] LABS: PLATELET ESTIMATE PLT APPEAR DECREASED
--- NOTE | 2016-10-09 14:00 | CONS ---
Date/Time of Note Date/Time of Note DATE: 10/09/16 TIME: 13:55 Assessment/Plan Assessment/Plan Chief Complaint/Hosp Course 56 year old male with mental retardation, ventilator dependent respiratory failure, ESRD on HD with continue GI bleed. Pt had melanotic stool this morning with an acute drop in Hg to 3. # Normocytic anemia, likely multifactorial due to GI bleed, chronic kidney disease, likely chronic inflammation - pt has been transfused 2 units of PRBCs but is still requiring pressor support. if repeat Hg< 8 will transfuse 2 more units of PRBC - Iron panel suggests anemia of chronic inflammation, high ferritin as expected. ; B12/folate WNL, LDH not elevated, retic count inappropriately low - Continue epo. -agree with blood transfusion with HD to be given today. # Thrombocytopenia,- pt received platelet transfusion yesterday. platelet lazara to 18. Pt is HIT positive - NO HEPARIN for patient givne + HIT antibody - Given GI bleed, will try to keep platelets > 50. will transfuse 1 units now - Possible contribution due to sepsis as well particularly in the setting of recent fever, and now with GNR bacteremia. DIC panel may suggest component of DIC with prolongs coags and elevated D dimer with rare schistocytes on smear though fibrin split products not elevated. HIV and Hep panel negative. Continue to monitor platelet count - Peripheral smear reviewed by pathology and confirms decreased platelet count, no microangiopathic changes, rare schistocytes, occasional metamyelocytes, mild bandemia, and no blasts - Abdominal US was technically limited study due to patient's inability to cooperate demonstrating mild hepatomegaly with a slightly coarsened echotexture which may indicate steatosis/hepatic cellular disease. Problems: Consultation Date/Type/Reason Admit Date/Time Sep 06, 2016 at 22:27 Initial Consult Date 10/03/16 Type of Consultation: Hematology Reason for Consultation anemia/ thrombocytopenia Referring Provider: FREDDY COELLO MD 24 HR Interval Summary Free Text/Dictation pt with melanotic stools. Hg has dropped to 3. pt has received 2 units PRBCs, 25 % albumin and 500cc NS. getting maintenance IV fluids Exam/Review of Systems Vital Signs Vitals Vital Signs Date Time Temp Pulse Resp B/P Pulse Ox O2 Delivery O2 Flow Rate FiO2 10/09/16 12:35 120 14 100 50 10/09/16 07:25 66/32 Mechanical Ventilator 10/09/16 04:49 98.6 Intake and Output 10/08/16 10/08/16 10/09/16 15:00 23:00 07:00 Intake Total 820 ml 585 ml Output Total 50 ml 50 ml Balance 770 ml 535 ml Exam Constitutional: non-verbal Head: normocephalic Eyes: nl conjunctiva Neck: other (trach ) Respiratory: crackles/rales Cardiovascular: other (tachycardic) Gastrointestinal: other (PEG in place) Musculoskeletal: swelling Results Result Diagram: 10/09/16 0947 10/09/16 0658 Results 24 hrs Laboratory Tests Test 10/08/16 17:41 10/09/16 00:51 10/09/16 06:46 10/09/16 06:58 Bedside Glucose 181 166 132 Anion Gap 14 Blood Urea Nitrogen 110 H Calcium Level 7.9 L Carbon Dioxide Level 22 Chloride Level 101 Creatinine 1.86 H Glucose Level 102 # Potassium Level 4.6 Random Vancomycin Level 15.7 Sodium Level 132 L Test 10/09/16 07:51 10/09/16 08:21 10/09/16 09:47 10/09/16 13:27 Bedside Glucose 136 158 Arterial Blood HCO3 23.4 Arterial Blood Base Excess -2.1 Arterial Blood Oxygen Saturation 98.9 H Tremaine Test ACCEPTAB Arterial Blood Gas Puncture Site Right Radial Arterial Blood Carboxyhemoglobin 1.5 Arterial Blood Date Drawn 10/09/2016 8:20:59 AM Arterial Blood Methemoglobin 0.6 Arterial Blood pCO2 (Temp correct) 44.4 Arterial Blood pH (Temp corrected) 7.340 L Arterial Blood pO2 (Temp corrected) 285.1 H Blood Gas A-a O2 Differential 383.5 H Blood Gas Actual Respiration Rate 14 Blood Gas Low PEEP Setting 5.0 Blood Gas Modality VENT - AC Blood Gas Notified Time 10/09/2016 8:29:20 AM Blood Gas Notified Whom JLD Blood Gas Respiration Rate 14.0 Blood Gas Specimen Source Blood arterial Blood Gas Temperature 37.0 Blood Gas Tidal Volume 500.0 FiO2 100.0 Oxyhemoglobin Percent 96.8 Total Hemoglobin 3.8 L Band Neutrophils % 13.0 H Eosinophils # Eosinophils % Hematocrit 10.4 #L Hemoglobin 3.2 #*L Lymphocytes # 1.3 Lymphocytes % 14.0 L Mean Corpuscular Hemoglobin 29.6 Mean Corpuscular Hemoglobin Concent 30.8 L Mean Corpuscular Volume 96.3 Mean Platelet Volume 13.3 H Monocytes # 0.7 Monocytes % 7.0 Neutrophils # 6.3 Neutrophils % 66.0 Platelet Count 19 *L Platelet Estimate PLT APPEAR DECREASED Red Blood Count 1.08 #L Red Cell Distribution Width 18.3 H White Blood Count 9.6 # Medications Medications Current Medications Acetaminophen (Tylenol Liquid) 640 mg Q6H PRN GTB PAIN OR TEMP ABOVE 38C Last administered on 10/07/16 17:51; Admin Dose 640 MG; Start 09/06/16 at 22:30 Allopurinol (Zyloprim) 200 mg DAILY GTB Last administered on 10/08/16 09:47; Admin Dose 200 MG; Start 09/07/16 at 09:00 Ascorbic Acid (Vitamin C) 500 mg BID GTB Last administered on 10/08/16 21:12; Admin Dose 500 MG; Start 09/07/16 at 09:00 Calcitriol (Rocaltrol) 0.25 mcg DAILY GTB Last administered on 10/08/16 09:47 ; Admin Dose 0.25 MCG; Start 09/07/16 at 09:00 Chlorhexidine Gluconate (Peridex) 15 ml BID MM Last administered on 10/08/16 21:12; Admin Dose 15 ML; Start 09/07/16 at 09:00 Famotidine (Pepcid) 40 mg DAILY GTB Last administered on 10/08/16 09:47; Admin Dose 40 MG; Start 09/07/16 at 09:00 Lansoprazole (Prevacid) 30 mg BID@,18 GTB Last administered on 10/09/16 06: 37; Admin Dose 30 MG; Start 09/07/16 at 06:00 Levetiracetam (Keppra Liquid) 500 mg BID GTB Last administered on 10/08/16 21: 12; Admin Dose 500 MG; Start 09/07/16 at 09:00 Metoclopramide HCl (Reglan) 5 mg Q8H PRN GTB NAUSEA AND/OR VOMITING; Start 09/06 at 22:30 Sucralfate (Carafate Susp) 1 gm BID GTB Last administered on 10/08/16 21:12; Admin Dose 1 GM; Start 09/07/16 at 09:00 Ondansetron HCl (Zofran Inj) 4 mg Q6H PRN IV NAUSEA AND/OR VOMITING Last administered on 09/17/16 00:52; Admin Dose 4 MG; Start 09/06/16 at 22:30 Morphine Sulfate (morphine) 2 mg Q4H PRN IV PAIN LEVEL 7-10 Last administered on 09/16/16 20:19; Admin Dose 2 MG; Start 09/06/16 at 22:30 Metoclopramide HCl (Reglan) 5 mg Q6H PRN IV RESIDUALS > 100; Start 09/10/16 at 19:00 Clonidine (Catapres) 0.1 mg Q6H PRN GTB ELEVATED SYSTOLIC BP Last administered on 09/15/16 07:04; Admin Dose 0.1 MG; Start 09/13/16 at 23:00 Hydralazine HCl (Apresoline) 10 mg Q6H PRN IV ELEVATED SYSTOLIC BP Last administered on 09/15/16 02:08; Admin Dose 10 MG; Start 09/15/16 at 01:50 Collagenase (Santyl) 1 applic DAILY TOP Last administered on 10/08/16 09:48; Admin Dose 1 APPLIC; Start 09/18/16 at 09:00 Glycopyrrolate (Robinul) 1 mg Q8 GTB Last administered on 10/09/16 06:37; Admin Dose 1 MG; Start 09/19/16 at 09:30 Amikacin Sulfate (Amikacin Iv Per Pharmacy) AMIKACIN PER PHARMACY NOTE XX ; Start 09/24/16 at 14:00 Miscellaneous Information 1 ea NOTE XX ; Start 09/28/16 at 09:00 Glucose (Glutose) 15 gm Q15M PRN PO DECREASED GLUCOSE; Start 09/28/16 at 09:00 Glucose (Glutose) 22.5 gm Q15M PRN PO DECREASED GLUCOSE; Start 09/28/16 at 09:00 Dextrose (D50w Syringe) 25 ml Q15M PRN IV DECREASED GLUCOSE Last administered on 09/29/16 18:18; Admin Dose 25 ML; Start 09/28/16 at 09:00 Dextrose (D50w Syringe) 50 ml Q15M PRN IV DECREASED GLUCOSE; Start 09/28/16 at 09:00 Glucagon (Glucagen) 1 mg Q15M PRN IM DECREASED GLUCOSE; Start 09/28/16 at 09:00 Glucose (Glutose) 15 gm Q15M PRN BUCCAL DECREASED GLUCOSE; Start 09/28/16 at 09: 00 Insulin Aspart (Novolog Insulin Pen) NOVOLOG *MILD* ALGORI... Q6 SC Last administered on 10/09/16 00:56; Admin Dose 1 UNIT; Start 09/29/16 at 00:00 IV Flush (NS 10 ml) 10 ml PRN PRN IV FLUSH LINE; Start 09/29/16 at 20:30 Epoetin Jeffry 6000 units 6,000 units MoWeFr@17 SC Last administered on 17:47; Admin Dose 6,000 UNITS; Start 10/01/16 at 17:00 Ciprofloxacin/ Dextrose 100 ml @ 100 mls/hr Q24H IVPB Last administered on 17:43; Admin Dose 100 MLS/HR; Start 10/07/16 at 17:30 Sodium Chloride 1,000 ml @ 50 mls/hr Q20H IV Last administered on 10/09/16 00 :59; Admin Dose 50 MLS/HR; Start 10/09/16 at 00:00 Norepinephrine 250 ml @ 1.875 mls/ hr TITRATE IV Last administered on 09:29; Admin Dose 3.75 MLS/HR; Start 10/09/16 at 08:46 Vancomycin HCl/ Sodium Chloride (Vancocin/NS) 250 ml @ 83.333 mls/ hr Q96H IVPB ; Start 10/09/16 at 17:00 NATI MONTEMAYOR M.D. Oct 09, 2016 14:00
[2016-10-09 14:35] LABS: ADD SCAN DIFF NO
--- NOTE | 2016-10-09 14:39 | PN ---
DATE: 10/09/2016 SUBJECTIVE: Patient was transferred to Intensive Care Unit secondary to low blood pressure, current ly on Levophed drip. He is nonverbal, noncommunicative. VITAL SIGNS: Temperature 98.6, pulse 103, respirations 14, blood pressure 66/32, saturation 100 on 60 FIO2. WBC 9.6, H and H ____ and 10.4, platelet count ____. MICROBIOLOGY: Blood cultures repeated on October 08 negative. Blood culture on October 04 grew Chryseob acterium meningosepticus. DIAGNOSTICS: Chest x-ray revealed cardiomegaly with pulmonary edema and pleural effusions. INDWELLINGS: Right chest Perm-A-Cath, left upper extremity PICC line placed on September 29, Brar kiesha ter, trach and PEG. ANTIMICROBIALS: The patient is on IV vancomycin, Cipro, amikacin. PHYSICAL EXAMINATION: GENERAL: This is a chronically ill-appearing, elderly man who is lying comfortably in bed. HEENT: Head atraumatic, normocephalic. Sclerae anicteric. Buccal mucosa dry. NECK: Supple, tracheostomy present. CHEST: Rise symmetrical. Breath sounds diminished to bases with bilateral crackles. HEART: S1, S2. ABDOMEN: Soft. Bowel tones hypoactive. EXTREMITIES: With bilateral edema, multiple necrotic wounds. SKIN: Positive for severe anasarca. Pale, dry. ASSESSMENT: 1. Severe sepsis with shock and multisystem organ failure. 2. Anemia with thrombocytopenia, Hematology on case. 3. Bacteremia, likely secondary to line sepsis, possibly secondary to wounds. 4. Multiple necrotic wounds. 5. End-stage renal disease, hemodialysis dependent. 6. Chronic respiratory failure, possible pneumonia. 7. Encephalopathy. 8. Seizure disorder. PLAN: The patient remains hemodynamically unstable, overall doing poorly. He is being seen by mult iple consultants. Repeat blood cultures from yesterday negative. Continue present care. Continue transfusing with blood products. Consider code status change, overall prognosis poor. Dictated By: ARUN DIANA [employer] for KAT VYAS/NIKOLAI Conf#: [id number] DID#: [id number]
--- NOTE | 2016-10-09 14:46 | RADRPT ---
PROCEDURE: XR Chest. CLINICAL INDICATION: Check PICC line position. TECHNIQUE: Single frontal view. COMPARISON: 10/09/2016. 1057 hours. FINDINGS: There is a left arm PICC line with the tip in the lower superior vena cava. The tracheostomy tube, right internal jugular vein tunnel dialysis catheter, cardiomegaly, pulmonary edema, and bilateral p leural effusions are unchanged. There is no pneumothorax. IMPRESSION: 1. Satisfactory position of left arm PICC line. 2. No other change from the prior study done earlier the same day. RPTAT: QQ .Yoan eGorge MD, MD Date Time Electronically viewed and signed by .Yoan George MD, MD on 10/09/2016 14:45 .R/
[2016-10-09] MEDS: LEVETIRACETAM (100 MG/ML) 5ML CUP GTB SCH ×2 (15:00→22:47)
[2016-10-09] MEDS: SUCRALFATE (100 MG/ML) 10ML CUP GTB SCH ×2 (15:00→22:48)
[2016-10-09] MEDS: ALLOPURINOL 100 MG TAB GTB SCH (15:01)
[2016-10-09] MEDS: ASCORBIC ACID 500 MG TAB GTB SCH ×2 (15:01→22:47)
[2016-10-09] MEDS: CALCITRIOL 0.25 MCG CAP GTB SCH (15:01)
[2016-10-09] MEDS: FAMOTIDINE 20 MG TAB GTB SCH (15:01)
[2016-10-09] MEDS: COLLAGENASE 30 GM TUBE TOP SCH (15:02)
[2016-10-09] MEDS: CHLORHEXIDINE GLUCONATE 15 ML UD CUP MM SCH ×2 (15:02→22:48)
[2016-10-09 15:16] LABS: ABNORMAL IP MESSAGE 1; MEAN CORPUSCULAR HEMOGLOBIN 30.8 pg (29.0-33.0); MEAN CORPUSCULAR HGB CONC 32.7 g/dl (32.0-37.0); MEAN CORPUSCULAR VOLUME 94.3 fl (82.0-101.0); MEAN PLATELET VOLUME 12.9 fl (7.4-10.4); RED BLOOD COUNT 1.59 10^6/ul (4.70-6.10); RED CELL DISTRIBUTION WIDTH 16.6 % (11.5-14.5); WHITE BLOOD COUNT 13.8 10^3/ul (4.8-10.8)
[2016-10-09 15:27] LABS: HEMOGLOBIN 4.9 g/dl (14.0-18.0)
[2016-10-09 15:28] LABS: PLATELET COUNT 23 10^3/UL (140-415)
[2016-10-09 16:04] LABS: LYMPHOCYTES # 0.6 10^3/ul (0.8-2.9); MONOCYTE # 0.4 10^3/ul (0.3-0.9); NEUTROPHIL # 11.5 10^3/ul (1.6-7.5); TOXIC GRANULATION MODERATE
--- NOTE | 2016-10-09 18:10 | PN ---
DATE: 10/09/2016 ADDENDUM Location in ICU. Condition critical. I spoke with the patient's sister, [place], regarding the pat ient's critical condition. The patient has developed severe anemia, GI bleed and respiratory failur e, multiple wounds, end-stage renal disease and severe thrombocytopenia due to heparin-induced throm bocytopenia. The patient's condition has further deteriorated. The patient is nonverbal and is dep endent on all ADLs and has no quality of life. I explained to the patient's sister that patient bimal uld be DNR and should be on comfort care as there is no hope for any meaningful recovery. She persi stently insisted that patient remains FULL CODE and continue with current aggressive treatment. I a lso explained to her that the patient is suffering with poor quality of life and no hope for any nettie ningful recovery. She still requested that patient remains FULL CODE and to continue to proceed wit h the current treatment plan. Dictated By: FREDDY SEGOVIA/NIKOLAI Conf#: [id number] DID#: [id number]
--- NOTE | 2016-10-09 18:25 | CONS ---
DATE OF ADMISSION: 09/06/2016 DATE OF CONSULTATION: HISTORY OF PRESENT ILLNESS: Today consultation is requested because of low hemoglobin of 3.3. The patient was transferred to the intensive care unit because of hypotension. He is on Levophed and ot her vasopressors. He is currently status post tracheostomy, history of chronic COPD, history of sep sis. He is on antibiotics and has severe peripheral vascular disease. He has decubitus ulcers. The patient also has a thrombocytopenia. He is being transfused now with packed red cells and also platelet transfusion. REVIEW OF SYSTEM: Essentially as mentioned above. History of COPD, status post tracheostomy, sepsi s, hypotension, GI bleed, anemia, peripheral vascular disease, thrombocytopenia. PHYSICAL EXAMINATION: GENERAL: The patient is a 56-year-old white gentleman who at this time is alert, but is nonverbal, status post tracheostomy. VITAL SIGNS: Blood pressure is around 90/60. CARDIOVASCULAR: Normal heart sounds. RESPIRATORY: Normal breath sounds. ABDOMEN: Showed a G-tube in place. I aspirated this G-tube and lot of coffee-ground material came out. CLINICAL IMPRESSION: 1. Upper gastrointestinal bleeding causing severe anemia and probably hypotension, rule out gastros blanco site ulcer disease, arteriovenous malformation, or peptic ulcer disease. 2. Respiratory failure. 3. Sepsis. 4. Peripheral vascular disease. PLAN: Recommend Protonix 8 mg per hour IV drip. Recommend transfuse up to 8 grams of hemoglobin. Recommend platelet transfusion, supportive therapy, and recommend EGD when he is stable. He also seems to have ascites that needs to be further worked up. Once again, I would like to thank you for this consultation. Dictated By: GEORGE SOTO/NTS Conf#: [id number] DID#: [id number] CC: GEORGE DOS SANTOS MD; TAI PERRIN MD; FREDDY COELLO MD;*EndCC*
[2016-10-09] MEDS: CIPROFLOXACIN 200 MG/D5W IVPB 100 ML IVPB SCH (19:43)
[2016-10-09 20:47] LABS: ADD SCAN DIFF NO
[2016-10-09 21:06] LABS: ABNORMAL IP MESSAGE 1; HEMATOCRIT 16.3 % (42.0-52.0); MEAN CORPUSCULAR HEMOGLOBIN 30.9 pg (29.0-33.0); MEAN CORPUSCULAR HGB CONC 33.7 g/dl (32.0-37.0); MEAN CORPUSCULAR VOLUME 91.6 fl (82.0-101.0); MEAN PLATELET VOLUME 10.1 fl (7.4-10.4); PLATELET COUNT 55 10^3/UL (140-415); RED BLOOD COUNT 1.78 10^6/ul (4.70-6.10); RED CELL DISTRIBUTION WIDTH 15.2 % (11.5-14.5); WHITE BLOOD COUNT 11.4 10^3/ul (4.8-10.8)
[2016-10-09 21:26] LABS: HEMOGLOBIN 5.5 g/dl (14.0-18.0)
[2016-10-09] MEDS: VANCOMYCIN 1.25 GM in SOD CHLORIDE 0.9% 250 ML IVPB SCH (21:49)
[2016-10-09 22:31] LABS: EOSINOPHILS # 0.1 10^3/ul (0.0-0.5); LYMPHOCYTES # 0.9 10^3/ul (0.8-2.9); MONOCYTE # 0.2 10^3/ul (0.3-0.9); NEUTROPHIL # 8.8 10^3/ul (1.6-7.5)
[2016-10-09 22:33] LABS: TOXIC GRANULATION MODERATE
[2016-10-09] MEDS: PANTOPRAZOLE IV 80 MG in SOD CHLORIDE 0.9% 100 ML IV SCH (22:48)
[2016-10-10] VITALS (107 sets, daily range): BP systolic 78–141; BP diastolic 26–70; PULSE 85–123; RESP 8–25
[2016-10-10] MEDS: INSULIN ASPART [NOVOLOG] 3 ML PEN SC SCH ×4 (00:06→17:26)
[2016-10-10] MEDS: LEVALBUTEROL (HFA) 15 GM INHALER INH SCH ×4 (01:36→19:18)
[2016-10-10] MEDS: IPRATROPIUM (HFA) 12.9 GM INHALER INH SCH ×4 (01:37→19:18)
[2016-10-10] MEDS: NORepinephrine 8MG/250 ML (PMX 250 ML IV SCH ×2 (03:22→08:18)
[2016-10-10 05:31] LABS: ADD SCAN DIFF NO
[2016-10-10 05:50] LABS: ABNORMAL IP MESSAGE 1; BASOPHILS % 0.1 % (0.0-2.0); EOSINOPHILS % 0.4 % (0.0-7.0); HEMATOCRIT 21.2 % (42.0-52.0); HEMOGLOBIN 7.2 g/dl (14.0-18.0); LYMPHOCYTES # 0.3 10^3/ul (0.8-2.9); LYMPHOCYTES % 3.8 % (15.0-51.0); MEAN CORPUSCULAR HEMOGLOBIN 29.5 pg (29.0-33.0); MEAN CORPUSCULAR VOLUME 86.9 fl (82.0-101.0); MEAN PLATELET VOLUME 11.7 fl (7.4-10.4); MONOCYTE # 0.4 10^3/ul (0.3-0.9); MONOCYTES % 5.1 % (0.0-11.0); NEUTROPHIL # 7.6 10^3/ul (1.6-7.5); NEUTROPHILS % 89.8 % (39.0-77.0); PLATELET COUNT 36 10^3/UL (140-415); RED BLOOD COUNT 2.44 10^6/ul (4.70-6.10); RED CELL DISTRIBUTION WIDTH 14.6 % (11.5-14.5); WHITE BLOOD COUNT 8.5 10^3/ul (4.8-10.8)
[2016-10-10] MEDS: GLYCOPYRROLATE 1 MG TAB GTB SCH ×3 (05:55→19:38)
[2016-10-10 06:02] LABS: POTASSIUM 4.7 mmol/L (3.5-5.1)
[2016-10-10 06:04] LABS: CREATININE 1.86 mg/dl (0.61-1.24)
[2016-10-10 06:05] LABS: CALCIUM 7.8 mg/dl (8.4-10.2)
--- NOTE | 2016-10-10 06:46 | PN ---
DATE: 10/09/2016 SUBJECTIVE: The patient was transferred to intensive care unit due to a fall in blood pressure. At present, his blood pressure is being kept up with Levophed at 20 mcg dosage. The most recent blood pressure now is 66/32, heart rate is 117 showing sinus tachycardia, respiratory rate is 14, pulse o ximetry 100% saturation with 50% inhaled oxygen concentration. PHYSICAL EXAMINATION: GENERAL: He is on continuous ventilator support and his breathing appears unlabored. His mental sta tus is same. He is poorly responsive. NECK: The tracheal secretions are clear. No bleeding is seen. HEART: Regular rhythm with sinus tachycardia. CHEST: Breath sounds are heard bilaterally, diminished in both the lower lung [place] with a few int ermittent rales and rhonchi. ABDOMEN: Soft. G-tube feedings on hold. EXTREMITIES: Show generalized edema. IMAGING: The chest x-ray taken today shows cardiomegaly with interstitial pulmonary edema and bilate ral pleural effusions suspicious for CHF, probably modestly secondary to his underlying renal failur e causing fluid retention. LABORATORY: The lab tests from today show sodium 132, potassium 4.6, bicarbonate of 22, creatinine 1 .86, BUN 110, glucose 102. The CBC shows a WBC of 13,800, hemoglobin of 4.9, hematocrit of 15, plate lets decreased to 23,000. He is getting a blood transfusion as of now to correct his severe anemia, but repeat blood cultures taken yesterday show no growth. Antibiotic therapy now consists of: 1. Amikacin. 2. Vancomycin. 3. Ciprofloxacin. IMPRESSION: 1. Septic shock secondary to gram negative sepsis. 2. Chronic respiratory failure, ventilator dependent. 3. History of seizure disorder. 4. Chronic encephalopathy. 5. Acute renal failure on dialysis. 6. Pancytopenia. 7. History of developmental delay. RECOMMENDATIONS: 1. Continue long-term ventilator support. 2. advanced to stabilize the blood pressure. 3. Continue antibiotics as per the ID home planning consultant salesperson. 4. Continue dialysis as per the tours hostess. Dialysis could not be done today due to his low blood pressure. 5. G-tube feeding is on hold. 6. Continue bronchodilator inhalation therapy to clear the secretions. Dictated By: VEENA STREETER MD SR/NTS Conf#: [id number] DID#: [id number]
[2016-10-10] MEDS: SEVELAMER CARBONATE 2.4 GM PKT GTB SCH ×3 (07:35→17:15)
[2016-10-10] MEDS: PANTOPRAZOLE IV 80 MG in SOD CHLORIDE 0.9% 100 ML IV SCH ×3 (08:13→22:36)
[2016-10-10] MEDS: SUCRALFATE (100 MG/ML) 10ML CUP GTB SCH ×2 (08:31→19:38)
[2016-10-10] MEDS: LEVETIRACETAM (100 MG/ML) 5ML CUP GTB SCH (08:32)
[2016-10-10] MEDS: ALLOPURINOL 100 MG TAB GTB SCH (08:32)
[2016-10-10] MEDS: CALCITRIOL 0.25 MCG CAP GTB SCH (08:32)
[2016-10-10] MEDS: ASCORBIC ACID 500 MG TAB GTB SCH ×2 (08:32→19:38)
[2016-10-10] MEDS ORDERED: SOD CHLORIDE 0.9% 100 ML ONE (09:25)
--- NOTE | 2016-10-10 09:52 | CONS ---
Date/Time of Note Date/Time of Note DATE: 10/10/16 TIME: 09:49 Assessment/Plan Assessment/Plan Additional Assessment/Plan 1. Acute kidney injury on possible chronic kidney disease unknown stage secondary to severe prerenal azotemia causing ischemic acute tubular necrosis in the setting of severe anemia.- continue to have Anuria with uremic symptoms and GI bleeding- started on HD during this admission 2. Severe anemia,s/p PRBC 3. Chronic respiratory failure, status post tracheostomy, on vent. 4. Pancytopenia. 5. History of a seizure disorder. 6. thrombocytopenia 7. Hypotension due to bleeding/sepsis PLAN: BP in 100s with levophed,Plan for HD with minimal ultrafiltration, transfuse PRBC and platelets with HD will continue to follow up on patient Consultation Date/Type/Reason Admit Date/Time Sep 06, 2016 at 22:27 Initial Consult Date Aug Type of Consultation: NEPHROLOGY Referring Provider: FREDDY COELLO MD 24 HR Interval Summary Free Text/Dictation Hb and platelets low pt is on Ventilator, SBP in 100s with levophed Exam/Review of Systems Vital Signs Vitals Vital Signs Date Time Temp Pulse Resp B/P Pulse Ox O2 Delivery O2 Flow Rate FiO2 10/10/16 09:15 99 14 112/40 100 Mechanical Ventilator 10/10/16 07:45 99.2 10/10/16 05:30 40 Intake and Output 10/09/16 10/09/16 10/10/16 15:00 23:00 07:00 Intake Total 160.1 ml 915.20 ml 1442.67 ml Output Total 20 ml 310 ml Balance 160.1 ml 895.20 ml 1132.67 ml Exam GENERAL: chronically ill-appearing, middle-aged man who is lying comfortably in bed. HEENT: Head atraumatic, normocephalic. Sclerae anicteric. Buccal mucosa dry. NECK: Supple. Tracheostomy present. CHEST: Rise symmetrical. Breath sounds diminished. HEART: S1, S2. ABDOMEN: Soft, bowel tones present. EXTREMITIES: Without cyanosis. Contractured. + permacath Right IJ Results Result Diagram: 10/10/16 0450 10/10/16 0450 Results 24 hrs Laboratory Tests Test 10/09/16 13:27 10/09/16 14:10 10/09/16 17:43 10/09/16 20:45 Bedside Glucose 158 219 Band Neutrophils % 10.0 H 12.0 H Dohle Bodies FEW Eosinophils # 0.1 Eosinophils % 1.0 Hematocrit 15.0 #L 16.3 L Hemoglobin 4.9 #*L 5.5 *L Lymphocytes # 0.6 L 0.9 Lymphocytes % 4.0 L 8.0 L Mean Corpuscular Hemoglobin 30.8 30.9 Mean Corpuscular Hemoglobin Concent 32.7 33.7 Mean Corpuscular Volume 94.3 91.6 Mean Platelet Volume 12.9 H 10.1 # Monocytes # 0.4 0.2 L Monocytes % 3.0 2.0 Neutrophils # 11.5 H 8.8 H Neutrophils % 83.0 H 77.0 Platelet Count 23 #*L 55 #L Red Blood Count 1.59 #L 1.78 L Red Cell Distribution Width 16.6 H 15.2 H Toxic Granulation MODERATE MODERATE White Blood Count 13.8 #H 11.4 H Test 10/10/16 00:03 10/10/16 04:50 10/10/16 06:04 Bedside Glucose 223 H 176 Anion Gap 15 Basophils # 0.0 Basophils % 0.1 Blood Urea Nitrogen 128 H Calcium Level 7.8 L Carbon Dioxide Level 22 Chloride Level 102 Creatinine 1.86 H Eosinophils # 0.0 Eosinophils % 0.4 Glucose Level 147 # Hematocrit 21.2 #L Hemoglobin 7.2 #L Lymphocytes # 0.3 L Lymphocytes % 3.8 L Mean Corpuscular Hemoglobin 29.5 Mean Corpuscular Hemoglobin Concent 34.0 Mean Corpuscular Volume 86.9 Mean Platelet Volume 11.7 H Monocytes # 0.4 Monocytes % 5.1 Neutrophils # 7.6 H Neutrophils % 89.8 H Nucleated Red Blood Cells # 0.0 Nucleated Red Blood Cells % 0.0 Platelet Count 36 #L Potassium Level 4.7 Red Blood Count 2.44 #L Red Cell Distribution Width 14.6 H Sodium Level 134 L White Blood Count 8.5 # Medications Medications Current Medications Acetaminophen (Tylenol Liquid) 640 mg Q6H PRN GTB PAIN OR TEMP ABOVE 38C Last administered on 10/07/16 17:51; Admin Dose 640 MG; Start 09/06/16 at 22:30 Allopurinol (Zyloprim) 200 mg DAILY GTB Last administered on 10/09/16 15:01; Admin Dose 200 MG; Start 09/07/16 at 09:00 Ascorbic Acid (Vitamin C) 500 mg BID GTB Last administered on 10/09/16 22:47; Admin Dose 500 MG; Start 09/07/16 at 09:00 Calcitriol (Rocaltrol) 0.25 mcg DAILY GTB Last administered on 10/09/16 15:01 ; Admin Dose 0.25 MCG; Start 09/07/16 at 09:00 Chlorhexidine Gluconate (Peridex) 15 ml BID MM Last administered on 10/09/16 22:48; Admin Dose 15 ML; Start 09/07/16 at 09:00 Levetiracetam (Keppra Liquid) 500 mg BID GTB Last administered on 10/09/16 22: 47; Admin Dose 500 MG; Start 09/07/16 at 09:00 Metoclopramide HCl (Reglan) 5 mg Q8H PRN GTB NAUSEA AND/OR VOMITING; Start 09/06 at 22:30 Sucralfate (Carafate Susp) 1 gm BID GTB Last administered on 10/09/16 22:48; Admin Dose 1 GM; Start 09/07/16 at 09:00 Ondansetron HCl (Zofran Inj) 4 mg Q6H PRN IV NAUSEA AND/OR VOMITING Last administered on 09/17/16 00:52; Admin Dose 4 MG; Start 09/06/16 at 22:30 Morphine Sulfate (morphine) 2 mg Q4H PRN IV PAIN LEVEL 7-10 Last administered on 09/16/16 20:19; Admin Dose 2 MG; Start 09/06/16 at 22:30 Metoclopramide HCl (Reglan) 5 mg Q6H PRN IV RESIDUALS > 100; Start 09/10/16 at 19:00 Clonidine (Catapres) 0.1 mg Q6H PRN GTB ELEVATED SYSTOLIC BP Last administered on 09/15/16 07:04; Admin Dose 0.1 MG; Start 09/13/16 at 23:00 Hydralazine HCl (Apresoline) 10 mg Q6H PRN IV ELEVATED SYSTOLIC BP Last administered on 09/15/16 02:08; Admin Dose 10 MG; Start 09/15/16 at 01:50 Collagenase (Santyl) 1 applic DAILY TOP Last administered on 10/09/16 15:02; Admin Dose 1 APPLIC; Start 09/18/16 at 09:00 Glycopyrrolate (Robinul) 1 mg Q8 GTB Last administered on 10/10/16 05:55; Admin Dose 1 MG; Start 09/19/16 at 09:30 Amikacin Sulfate (Amikacin Iv Per Pharmacy) AMIKACIN PER PHARMACY NOTE XX ; Start 09/24/16 at 14:00 Miscellaneous Information 1 ea NOTE XX ; Start 09/28/16 at 09:00 Glucose (Glutose) 15 gm Q15M PRN PO DECREASED GLUCOSE; Start 09/28/16 at 09:00 Glucose (Glutose) 22.5 gm Q15M PRN PO DECREASED GLUCOSE; Start 09/28/16 at 09:00 Dextrose (D50w Syringe) 25 ml Q15M PRN IV DECREASED GLUCOSE Last administered on 09/29/16 18:18; Admin Dose 25 ML; Start 09/28/16 at 09:00 Dextrose (D50w Syringe) 50 ml Q15M PRN IV DECREASED GLUCOSE; Start 09/28/16 at 09:00 Glucagon (Glucagen) 1 mg Q15M PRN IM DECREASED GLUCOSE; Start 09/28/16 at 09:00 Glucose (Glutose) 15 gm Q15M PRN BUCCAL DECREASED GLUCOSE; Start 09/28/16 at 09: 00 Insulin Aspart (Novolog Insulin Pen) NOVOLOG *MILD* ALGORI... Q6 SC Last administered on 10/10/16 06:05; Admin Dose 1 UNIT; Start 09/29/16 at 00:00 IV Flush (NS 10 ml) 10 ml PRN PRN IV FLUSH LINE; Start 09/29/16 at 20:30 Epoetin Jeffry 6000 units 6,000 units MoWeFr@17 SC Last administered on 17:47; Admin Dose 6,000 UNITS; Start 10/01/16 at 17:00 Ciprofloxacin/ Dextrose 100 ml @ 100 mls/hr Q24H IVPB Last administered on 19:43; Admin Dose 100 MLS/HR; Start 10/07/16 at 17:30 Sodium Chloride 1,000 ml @ 50 mls/hr Q20H IV Last administered on 10/09/16 00 :59; Admin Dose 50 MLS/HR; Start 10/09/16 at 00:00 Norepinephrine 250 ml @ 1.875 mls/ hr TITRATE IV Last administered on 08:18; Admin Dose 46.875 MLS/HR; Start 10/09/16 at 08:46; Status Future Hold Vancomycin HCl 1.25 gm/Sodium Chloride 250 ml @ 83.333 mls/ hr Q96H IVPB Last administered on 10/09/16 21:49; Admin Dose 83.333 MLS/HR; Start 10/09/16 at 17: 00 Pantoprazole 80 mg/Sodium Chloride 100 ml @ 10 mls/hr Q10H IV Last administered on 10/09/16 22:48; Admin Dose 10 MLS/HR; Start 10/09/16 at 19:00 Norepinephrine/ Dextrose (Levophed/D5W) 500 ml @ 0 mls/hr TITRATE IV ; Start at 08:30 KENIA TURCIOS MD Oct 10, 2016 09:52
--- NOTE | 2016-10-10 10:39 | PN ---
DATE: COMPLAINT: At this time the patient is unable to communicate. He is hypotensive. He is on vasopre ssors. He has evidence of coffee-ground material draining from the G-tube. His hemoglobin is aroun d 7.8. Blood pressures were in the low 90s and 100s. Heart rate is around 90. Abdomen soft. He is on respirator. CLINICAL IMPRESSION: The patient in shock, probably hypovolemic as well as shock due to low hemoglo bin and persistent GI bleeding. It could be ulcer disease or could be ulcer at the site of the gastr ostomy, AVM, etc. PLAN: Stabilize the patient and do the upper endoscopy. He looks like he is very unstable for any aggressive endoscopic maneuver at this time. Continue Protonix drip, transfuse to keep the hemoglob in up to 9 grams. Dictated By: GEORGE SOTO/NTS Conf#: [id number] DID#: [id number] CC: GEORGE DOS SANTOS MD; TAI PERRIN MD;*EndCC*
[2016-10-10] MEDS: CHLORHEXIDINE GLUCONATE 15 ML UD CUP MM SCH ×2 (10:45→20:34)
[2016-10-10] MEDS: COLLAGENASE 30 GM TUBE TOP SCH (10:46)
--- NOTE | 2016-10-10 11:55 | CONS ---
Date/Time of Note Date/Time of Note DATE: 10/10/16 TIME: 11:52 Assessment/Plan Assessment/Plan Chief Complaint/Hosp Course SUBJECTIVE: Remains on Levophed drip, nonverbal, noncommunicative. NAD + fou; odor from the wounds MICROBIOLOGY: Blood cultures repeated on October 08 negative. 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 INDWELLINGS: Right chest Perm-A-Cath, left upper extremity PICC line placed on September 29, Brar catheter, trach and PEG. ANTIMICROBIALS: The patient is on IV vancomycin, Cipro, amikacin. PHYSICAL EXAMINATION: GENERAL: This is a chronically ill-appearing, elderly man who is lying comfortably in bed. HEENT: Head atraumatic, normocephalic. Sclerae anicteric. Buccal mucosa dry. NECK: Supple, tracheostomy present. CHEST: Rise symmetrical. Breath sounds diminished to bases with bilateral crackles. HEART: S1, S2. ABDOMEN: Soft. Bowel tones hypoactive. EXTREMITIES: With bilateral edema, multiple necrotic wounds. SKIN: Positive for severe anasarca. Pale, dry. ASSESSMENT: 1. Severe sepsis with shock and multisystem organ failure. 2. Anemia with thrombocytopenia, Hematology on case. 3. Bacteremia, likely secondary to line sepsis, possibly secondary to wounds. 4. Multiple wounds ?OM. 5. End-stage renal disease, hemodialysis dependent. 6. Chronic respiratory failure, possible pneumonia. 7. Encephalopathy. 8. Seizure disorder. PLAN: The patient remains hemodynamically unstable, will start Merrem and dc Cipro. Continue present care, abx. F/u recommendations of consultants. Consider surgical eval for poss debridement. Prognosis poor DW staff Problems: Consultation Date/Type/Reason Admit Date/Time Sep 06, 2016 at 22:27 Initial Consult Date 09/07/16 Type of Consultation: ID Referring Provider: FREDDY COELLO MD Exam/Review of Systems Vital Signs Vitals Vital Signs Date Time Temp Pulse Resp B/P Pulse Ox O2 Delivery O2 Flow Rate FiO2 10/10/16 09:15 99 14 112/40 100 Mechanical Ventilator 10/10/16 08:00 40 10/10/16 07:45 99.2 Intake and Output 10/09/16 10/09/16 10/10/16 15:00 23:00 07:00 Intake Total 160.1 ml 915.20 ml 1442.67 ml Output Total 20 ml 310 ml Balance 160.1 ml 895.20 ml 1132.67 ml Results Result Diagram: 10/10/16 0450 10/10/16 0450 Results 24 hrs Laboratory Tests Test 10/09/16 13:27 10/09/16 14:10 10/09/16 17:43 10/09/16 20:45 Bedside Glucose 158 219 Band Neutrophils % 10.0 H 12.0 H Dohle Bodies FEW Eosinophils # 0.1 Eosinophils % 1.0 Hematocrit 15.0 #L 16.3 L Hemoglobin 4.9 #*L 5.5 *L Lymphocytes # 0.6 L 0.9 Lymphocytes % 4.0 L 8.0 L Mean Corpuscular Hemoglobin 30.8 30.9 Mean Corpuscular Hemoglobin Concent 32.7 33.7 Mean Corpuscular Volume 94.3 91.6 Mean Platelet Volume 12.9 H 10.1 # Monocytes # 0.4 0.2 L Monocytes % 3.0 2.0 Neutrophils # 11.5 H 8.8 H Neutrophils % 83.0 H 77.0 Platelet Count 23 #*L 55 #L Red Blood Count 1.59 #L 1.78 L Red Cell Distribution Width 16.6 H 15.2 H Toxic Granulation MODERATE MODERATE White Blood Count 13.8 #H 11.4 H Test 10/10/16 00:03 10/10/16 04:50 10/10/16 06:04 Bedside Glucose 223 H 176 Anion Gap 15 Basophils # 0.0 Basophils % 0.1 Blood Urea Nitrogen 128 H Calcium Level 7.8 L Carbon Dioxide Level 22 Chloride Level 102 Creatinine 1.86 H Eosinophils # 0.0 Eosinophils % 0.4 Glucose Level 147 # Hematocrit 21.2 #L Hemoglobin 7.2 #L Lymphocytes # 0.3 L Lymphocytes % 3.8 L Mean Corpuscular Hemoglobin 29.5 Mean Corpuscular Hemoglobin Concent 34.0 Mean Corpuscular Volume 86.9 Mean Platelet Volume 11.7 H Monocytes # 0.4 Monocytes % 5.1 Neutrophils # 7.6 H Neutrophils % 89.8 H Nucleated Red Blood Cells # 0.0 Nucleated Red Blood Cells % 0.0 Platelet Count 36 #L Potassium Level 4.7 Red Blood Count 2.44 #L Red Cell Distribution Width 14.6 H Sodium Level 134 L White Blood Count 8.5 # Medications Medications Current Medications Acetaminophen (Tylenol Liquid) 640 mg Q6H PRN GTB PAIN OR TEMP ABOVE 38C Last administered on 10/07/16 17:51; Admin Dose 640 MG; Start 09/06/16 at 22:30 Allopurinol (Zyloprim) 200 mg DAILY GTB Last administered on 10/09/16 15:01; Admin Dose 200 MG; Start 09/07/16 at 09:00 Ascorbic Acid (Vitamin C) 500 mg BID GTB Last administered on 10/09/16 22:47; Admin Dose 500 MG; Start 09/07/16 at 09:00 Calcitriol (Rocaltrol) 0.25 mcg DAILY GTB Last administered on 10/09/16 15:01 ; Admin Dose 0.25 MCG; Start 09/07/16 at 09:00 Chlorhexidine Gluconate (Peridex) 15 ml BID MM Last administered on 10/10/16 10:45; Admin Dose 15 ML; Start 09/07/16 at 09:00 Levetiracetam (Keppra Liquid) 500 mg BID GTB Last administered on 10/09/16 22: 47; Admin Dose 500 MG; Start 09/07/16 at 09:00 Metoclopramide HCl (Reglan) 5 mg Q8H PRN GTB NAUSEA AND/OR VOMITING; Start 09/06 at 22:30 Sucralfate (Carafate Susp) 1 gm BID GTB Last administered on 10/09/16 22:48; Admin Dose 1 GM; Start 09/07/16 at 09:00 Ondansetron HCl (Zofran Inj) 4 mg Q6H PRN IV NAUSEA AND/OR VOMITING Last administered on 09/17/16 00:52; Admin Dose 4 MG; Start 09/06/16 at 22:30 Morphine Sulfate (morphine) 2 mg Q4H PRN IV PAIN LEVEL 7-10 Last administered on 09/16/16 20:19; Admin Dose 2 MG; Start 09/06/16 at 22:30 Metoclopramide HCl (Reglan) 5 mg Q6H PRN IV RESIDUALS > 100; Start 09/10/16 at 19:00 Clonidine (Catapres) 0.1 mg Q6H PRN GTB ELEVATED SYSTOLIC BP Last administered on 09/15/16 07:04; Admin Dose 0.1 MG; Start 09/13/16 at 23:00 Hydralazine HCl (Apresoline) 10 mg Q6H PRN IV ELEVATED SYSTOLIC BP Last administered on 09/15/16 02:08; Admin Dose 10 MG; Start 09/15/16 at 01:50 Collagenase (Santyl) 1 applic DAILY TOP Last administered on 10/10/16 10:46; Admin Dose 1 APPLIC; Start 09/18/16 at 09:00 Glycopyrrolate (Robinul) 1 mg Q8 GTB Last administered on 10/10/16 05:55; Admin Dose 1 MG; Start 09/19/16 at 09:30 Amikacin Sulfate (Amikacin Iv Per Pharmacy) AMIKACIN PER PHARMACY NOTE XX ; Start 09/24/16 at 14:00 Miscellaneous Information 1 ea NOTE XX ; Start 09/28/16 at 09:00 Glucose (Glutose) 15 gm Q15M PRN PO DECREASED GLUCOSE; Start 09/28/16 at 09:00 Glucose (Glutose) 22.5 gm Q15M PRN PO DECREASED GLUCOSE; Start 09/28/16 at 09:00 Dextrose (D50w Syringe) 25 ml Q15M PRN IV DECREASED GLUCOSE Last administered on 09/29/16 18:18; Admin Dose 25 ML; Start 09/28/16 at 09:00 Dextrose (D50w Syringe) 50 ml Q15M PRN IV DECREASED GLUCOSE; Start 09/28/16 at 09:00 Glucagon (Glucagen) 1 mg Q15M PRN IM DECREASED GLUCOSE; Start 09/28/16 at 09:00 Glucose (Glutose) 15 gm Q15M PRN BUCCAL DECREASED GLUCOSE; Start 09/28/16 at 09: 00 Insulin Aspart (Novolog Insulin Pen) NOVOLOG *MILD* ALGORI... Q6 SC Last administered on 10/10/16 06:05; Admin Dose 1 UNIT; Start 09/29/16 at 00:00 IV Flush (NS 10 ml) 10 ml PRN PRN IV FLUSH LINE; Start 09/29/16 at 20:30 Epoetin Jeffry 6000 units 6,000 units MoWeFr@17 SC Last administered on 17:47; Admin Dose 6,000 UNITS; Start 10/01/16 at 17:00 Ciprofloxacin/ Dextrose 100 ml @ 100 mls/hr Q24H IVPB Last administered on 19:43; Admin Dose 100 MLS/HR; Start 10/07/16 at 17:30 Sodium Chloride 1,000 ml @ 50 mls/hr Q20H IV Last administered on 10/09/16 00 :59; Admin Dose 50 MLS/HR; Start 10/09/16 at 00:00 Vancomycin HCl 1.25 gm/Sodium Chloride 250 ml @ 83.333 mls/ hr Q96H IVPB Last administered on 10/09/16 21:49; Admin Dose 83.333 MLS/HR; Start 10/09/16 at 17: 00 Pantoprazole 80 mg/Sodium Chloride 100 ml @ 10 mls/hr Q10H IV Last administered on 10/09/16 22:48; Admin Dose 10 MLS/HR; Start 10/09/16 at 19:00 Norepinephrine/ Dextrose (Levophed/D5W) 500 ml @ 0 mls/hr TITRATE IV ; Start at 08:30 ARUN DIANA NP Oct 10, 2016 11:55
--- NOTE | 2016-10-10 13:37 | PN ---
DATE: 10/10/2016 SUBJECTIVE: The patient is in ICU on the ventilator support. His blood pressure has been stabilize d with Levophed at 25 mg dosage at present. PHYSICAL EXAMINATION: VITAL SIGNS: The most recent blood pressure reading is 112/40, pulse rate is 99, respirations 21, a nd pulse oximetry 100% saturation with 40% inhaled oxygen concentration. Tracheal secretions are cl ear with no gross bleeding is seen. HEART: Regular rhythm with periods of sinus tachycardia. CHEST: Breath sounds are heard bilaterally, somewhat diminished in the lower lung [place], otherwise clear. ABDOMEN: Soft, not distended. Gastrostomy tube feeding is on hold due to probable GI bleeding. Th e patient has been seen by portrait studio photographer. EGD is scheduled to be done when the patient's condit ion is stable. EXTREMITIES: Show generalized edema. LABORATORY DATA: From today shows sodium 134, potassium 4.7, bicarbonate of 50, bicarbonate of 22, creatinine 1.86, BUN is 128, glucose is 147. The CBC shows a WBC 8500, hemoglobin 7.2, hematocrit 2 1.2, platelets decreased to 36,000. IMPRESSION: 1. Septic shock secondary to gram-negative sepsis. 2. Chronic respiratory failure, ventilator dependent. 3. History of seizure disorder. 4. Chronic encephalopathy. 5. Acute renal failure on dialysis. 6. Pancytopenia. 7. History of developmental delay. PLAN: 1. Continue long-term ventilator support. 2. Continue pressor drugs to stabilize the blood pressure. 3. Continue antibiotics as per ID system sales consultant. 4. Continue dialysis with driver engineer. 5. Continue bronchodilator inhalation therapy. Dictated By: VEENA STREETER MD SR/NTS Conf#: [id number] DID#: [id number]
--- NOTE | 2016-10-10 13:58 | CONS ---
Date/Time of Note Date/Time of Note DATE: 10/10/16 TIME: 13:54 Assessment/Plan Assessment/Plan Chief Complaint/Hosp Course 56 year old male with mental retardation, ventilator dependent respiratory failure, ESRD on HD with continue GI bleed. Pt had melanotic stool this morning with an acute drop in Hg to 3. # Normocytic anemia, likely multifactorial due to GI bleed, chronic kidney disease, likely chronic inflammation - pt has been transfused 2 units of PRBCs and 1 unit of platelets but is still requiring pressor support. If repeat Hg< 8 will transfuse 2 more units of PRBC - Iron panel suggests anemia of chronic inflammation, high ferritin as expected. ; B12/folate WNL, LDH not elevated, retic count inappropriately low - Continue epo. - Agree with blood transfusion with HD to be given today. # Thrombocytopenia, likely related to sepsis, consumption. - NO HEPARIN for patient given + HIT antibody, although suspicion for HIT low given low optical density (OD of 0.652). Will send serotonin release assay. Hold anticoagulation in the setting of severe anemia/GIB. - Given GI bleed, will try to keep platelets > 50. Will transfuse 1 units now. - Possible contribution due to sepsis as well particularly in the setting of recent fever, and now with GNR bacteremia. DIC panel may suggest component of DIC with prolongs coags and elevated D dimer with rare schistocytes on smear though fibrin split products not elevated. HIV and Hep panel negative. Continue to monitor platelet count - Peripheral smear reviewed by pathology and confirms decreased platelet count, no microangiopathic changes, rare schistocytes, occasional metamyelocytes, mild bandemia, and no blasts - Abdominal US was technically limited study due to patient's inability to cooperate demonstrating mild hepatomegaly with a slightly coarsened echotexture which may indicate steatosis/hepatic cellular disease. Problems: Consultation Date/Type/Reason Admit Date/Time Sep 06, 2016 at 22:27 Initial Consult Date 10/03/16 Type of Consultation: Hematology/Oncology Referring Provider: FREDDY COELLO MD 24 HR Interval Summary Free Text/Dictation Patient hemodynamically unstable on levophed. Plan for upper endoscopy only if stabilized. Patient continues to have coffee ground emesis in NG tube. Exam/Review of Systems Vital Signs Vitals Vital Signs Date Time Temp Pulse Resp B/P Pulse Ox O2 Delivery O2 Flow Rate FiO2 10/10/16 11:51 103 21 100 40 10/10/16 09:15 112/40 Mechanical Ventilator 10/10/16 07:45 99.2 Intake and Output 10/09/16 10/09/16 10/10/16 15:00 23:00 07:00 Intake Total 160.1 ml 915.20 ml 1442.67 ml Output Total 20 ml 310 ml Balance 160.1 ml 895.20 ml 1132.67 ml Exam Constitutional: non-verbal Head: normocephalic Eyes: nl conjunctiva Neck: other (trach) Respiratory: crackles/rales Cardiovascular: other (tachycardic) Gastrointestinal: other (PEG in place) Musculoskeletal: swelling Results Result Diagram: 10/10/16 0450 10/10/16 0450 Results 24 hrs Laboratory Tests Test 10/09/16 14:10 10/09/16 17:43 10/09/16 20:45 10/10/16 00:03 Band Neutrophils % 10.0 H 12.0 H Dohle Bodies FEW Eosinophils # 0.1 Eosinophils % 1.0 Hematocrit 15.0 #L 16.3 L Hemoglobin 4.9 #*L 5.5 *L Lymphocytes # 0.6 L 0.9 Lymphocytes % 4.0 L 8.0 L Mean Corpuscular Hemoglobin 30.8 30.9 Mean Corpuscular Hemoglobin Concent 32.7 33.7 Mean Corpuscular Volume 94.3 91.6 Mean Platelet Volume 12.9 H 10.1 # Monocytes # 0.4 0.2 L Monocytes % 3.0 2.0 Neutrophils # 11.5 H 8.8 H Neutrophils % 83.0 H 77.0 Platelet Count 23 #*L 55 #L Red Blood Count 1.59 #L 1.78 L Red Cell Distribution Width 16.6 H 15.2 H Toxic Granulation MODERATE MODERATE White Blood Count 13.8 #H 11.4 H Bedside Glucose 219 223 H Test 10/10/16 04:50 10/10/16 06:04 10/10/16 13:11 Anion Gap 15 Basophils # 0.0 Basophils % 0.1 Blood Urea Nitrogen 128 H Calcium Level 7.8 L Carbon Dioxide Level 22 Chloride Level 102 Creatinine 1.86 H Eosinophils # 0.0 Eosinophils % 0.4 Glucose Level 147 # Hematocrit 21.2 #L Hemoglobin 7.2 #L Lymphocytes # 0.3 L Lymphocytes % 3.8 L Mean Corpuscular Hemoglobin 29.5 Mean Corpuscular Hemoglobin Concent 34.0 Mean Corpuscular Volume 86.9 Mean Platelet Volume 11.7 H Monocytes # 0.4 Monocytes % 5.1 Neutrophils # 7.6 H Neutrophils % 89.8 H Nucleated Red Blood Cells # 0.0 Nucleated Red Blood Cells % 0.0 Platelet Count 36 #L Potassium Level 4.7 Red Blood Count 2.44 #L Red Cell Distribution Width 14.6 H Sodium Level 134 L White Blood Count 8.5 # Bedside Glucose 176 183 Medications Medications Current Medications Acetaminophen (Tylenol Liquid) 640 mg Q6H PRN GTB PAIN OR TEMP ABOVE 38C Last administered on 10/07/16 17:51; Admin Dose 640 MG; Start 09/06/16 at 22:30 Allopurinol (Zyloprim) 200 mg DAILY GTB Last administered on 10/09/16 15:01; Admin Dose 200 MG; Start 09/07/16 at 09:00 Ascorbic Acid (Vitamin C) 500 mg BID GTB Last administered on 10/09/16 22:47; Admin Dose 500 MG; Start 09/07/16 at 09:00 Calcitriol (Rocaltrol) 0.25 mcg DAILY GTB Last administered on 10/09/16 15:01 ; Admin Dose 0.25 MCG; Start 09/07/16 at 09:00 Chlorhexidine Gluconate (Peridex) 15 ml BID MM Last administered on 10/10/16 10:45; Admin Dose 15 ML; Start 09/07/16 at 09:00 Levetiracetam (Keppra Liquid) 500 mg BID GTB Last administered on 10/09/16 22: 47; Admin Dose 500 MG; Start 09/07/16 at 09:00 Metoclopramide HCl (Reglan) 5 mg Q8H PRN GTB NAUSEA AND/OR VOMITING; Start 09/06 at 22:30 Sucralfate (Carafate Susp) 1 gm BID GTB Last administered on 10/09/16 22:48; Admin Dose 1 GM; Start 09/07/16 at 09:00 Ondansetron HCl (Zofran Inj) 4 mg Q6H PRN IV NAUSEA AND/OR VOMITING Last administered on 09/17/16 00:52; Admin Dose 4 MG; Start 09/06/16 at 22:30 Morphine Sulfate (morphine) 2 mg Q4H PRN IV PAIN LEVEL 7-10 Last administered on 09/16/16 20:19; Admin Dose 2 MG; Start 09/06/16 at 22:30 Metoclopramide HCl (Reglan) 5 mg Q6H PRN IV RESIDUALS > 100; Start 09/10/16 at 19:00 Clonidine (Catapres) 0.1 mg Q6H PRN GTB ELEVATED SYSTOLIC BP Last administered on 09/15/16 07:04; Admin Dose 0.1 MG; Start 09/13/16 at 23:00 Hydralazine HCl (Apresoline) 10 mg Q6H PRN IV ELEVATED SYSTOLIC BP Last administered on 09/15/16 02:08; Admin Dose 10 MG; Start 09/15/16 at 01:50 Collagenase (Santyl) 1 applic DAILY TOP Last administered on 10/10/16 10:46; Admin Dose 1 APPLIC; Start 09/18/16 at 09:00 Glycopyrrolate (Robinul) 1 mg Q8 GTB Last administered on 10/10/16 05:55; Admin Dose 1 MG; Start 09/19/16 at 09:30 Amikacin Sulfate (Amikacin Iv Per Pharmacy) AMIKACIN PER PHARMACY NOTE XX ; Start 09/24/16 at 14:00 Miscellaneous Information 1 ea NOTE XX ; Start 09/28/16 at 09:00 Glucose (Glutose) 15 gm Q15M PRN PO DECREASED GLUCOSE; Start 09/28/16 at 09:00 Glucose (Glutose) 22.5 gm Q15M PRN PO DECREASED GLUCOSE; Start 09/28/16 at 09:00 Dextrose (D50w Syringe) 25 ml Q15M PRN IV DECREASED GLUCOSE Last administered on 09/29/16 18:18; Admin Dose 25 ML; Start 09/28/16 at 09:00 Dextrose (D50w Syringe) 50 ml Q15M PRN IV DECREASED GLUCOSE; Start 09/28/16 at 09:00 Glucagon (Glucagen) 1 mg Q15M PRN IM DECREASED GLUCOSE; Start 09/28/16 at 09:00 Glucose (Glutose) 15 gm Q15M PRN BUCCAL DECREASED GLUCOSE; Start 09/28/16 at 09: 00 Insulin Aspart (Novolog Insulin Pen) NOVOLOG *MILD* ALGORI... Q6 SC Last administered on 10/10/16 13:15; Admin Dose 2 UNIT; Start 09/29/16 at 00:00 IV Flush (NS 10 ml) 10 ml PRN PRN IV FLUSH LINE; Start 09/29/16 at 20:30 Epoetin Jeffry 6000 units 6,000 units [email or web address]@17 SC Last administered on 17:47; Admin Dose 6,000 UNITS; Start 10/01/16 at 17:00 Sodium Chloride 1,000 ml @ 50 mls/hr Q20H IV Last administered on 10/09/16 00 :59; Admin Dose 50 MLS/HR; Start 10/09/16 at 00:00 Vancomycin HCl 1.25 gm/Sodium Chloride 250 ml @ 83.333 mls/ hr Q96H IVPB Last administered on 10/09/16 21:49; Admin Dose 83.333 MLS/HR; Start 10/09/16 at 17: 00 Pantoprazole 80 mg/Sodium Chloride 100 ml @ 10 mls/hr Q10H IV Last administered on 10/10/16 13:00; Admin Dose 10 MLS/HR; Start 10/09/16 at 19:00 Norepinephrine 16 mg/Dextrose 500 ml @ 0 mls/hr TITRATE IV Last administered on 10/10/16 13:05; Admin Dose 46.87 MLS/HR; Start 10/10/16 at 08:30 Meropenem (Merrem 500 Mg/ 100 ml (Pmx)) 100 ml @ 200 mls/hr Q12 IVPB ; Start at 21:00 NORMA TALBOT MD Oct 10, 2016 13:58
--- NOTE | 2016-10-10 14:40 | PN ---
Date/Time of Note Date/Time of Note DATE: 10/10/16 TIME: 14:28 Assessment/Plan VTE Prophylaxis VTE Prophylaxis Intervention: SCD's Lines/Catheters [facility] ([facility] Peripheral IV Urinary Cath still in place: Yes Reason Cath still needed: urinary retention Assessment/Plan Chief Complaint/Hosp Course ASSESSMENT AND PLAN: - Shock hypovolemic, possibly septic. Continue ICU care, IVF, pressors, blood transfusion. -Severe anemia anemia secondary to GI bleed. Continue Protonix drip. Plan for possible endoscopy when patient is more stable. Continue blood transfusion. - Heparin-induced thrombocytopenia, hold heparin, patient status post platelets transfusion. Dr. Coughlin is following in hematology consultation. - GNR bacteremia, status of the PICC line exchange. - Severe anemia 2 GI bleed. Continue to monitor hemoglobin and hematocrit. Dr. Singh is following in gastroenterology consultation. - Acute kidney failure on chronic kidney disease. Continue to monitor BUN and creatinine. Dr. Mk Purdy is following in nephrology consultation. Patient with worsening renal function. Started on Hemodialysis during this admission. - Pancytopenia 2 chronic inflammation and sepsis. - Ventilator-dependent respiratory failure. Dr. Aragon is following in pulmonology consultation. Continue ventilator support, bronchodilators. - HCAP on admission. Status post treatment. - Dysphagia with PEG. - History of seizure disorder. Continue patient on Keppra. - Diastolic dysfunction congestive heart failure with preserved ejection fraction of 60%. - S/p sepsis on admission. Dr. Guy is following patient in infectious disease consultation. - Status post cerebrovascular accident, status post craniotomy. - Mental retardation. Continue Protonix for peptic ulcer disease prophylaxis. Further recommendations based on clinical course. Plan of care discussed with Dr. Mcelroy. Problems: Exam/Review of Systems Vital Signs Vitals Vital Signs Date Time Temp Pulse Resp B/P Pulse Ox O2 Delivery O2 Flow Rate FiO2 10/10/16 11:51 103 21 100 40 10/10/16 11:45 99.1 110/38 Mechanical Ventilator Intake and Output 10/09/16 10/09/16 10/10/16 15:00 23:00 07:00 Intake Total 160.1 ml 915.20 ml 1442.67 ml Output Total 20 ml 310 ml Balance 160.1 ml 895.20 ml 1132.67 ml Exam Patient's continues to be on pressors for hemodynamic support, orally intubated on vent support, pending blood transfusion was next hemodialysis. Results Result Diagram: 10/10/16 0450 10/10/16 0450 Results 24 hrs Laboratory Tests Test 10/09/16 17:43 10/09/16 20:45 10/10/16 00:03 10/10/16 04:50 Bedside Glucose 219 223 H Band Neutrophils % 12.0 H Eosinophils # 0.1 0.0 Eosinophils % 1.0 0.4 Hematocrit 16.3 L 21.2 #L Hemoglobin 5.5 *L 7.2 #L Lymphocytes # 0.9 0.3 L Lymphocytes % 8.0 L 3.8 L Mean Corpuscular Hemoglobin 30.9 29.5 Mean Corpuscular Hemoglobin Concent 33.7 34.0 Mean Corpuscular Volume 91.6 86.9 Mean Platelet Volume 10.1 # 11.7 H Monocytes # 0.2 L 0.4 Monocytes % 2.0 5.1 Neutrophils # 8.8 H 7.6 H Neutrophils % 77.0 89.8 H Platelet Count 55 #L 36 #L Red Blood Count 1.78 L 2.44 #L Red Cell Distribution Width 15.2 H 14.6 H Toxic Granulation MODERATE White Blood Count 11.4 H 8.5 # Anion Gap 15 Basophils # 0.0 Basophils % 0.1 Blood Urea Nitrogen 128 H Calcium Level 7.8 L Carbon Dioxide Level 22 Chloride Level 102 Creatinine 1.86 H Glucose Level 147 # Nucleated Red Blood Cells # 0.0 Nucleated Red Blood Cells % 0.0 Potassium Level 4.7 Sodium Level 134 L Test 10/10/16 06:04 10/10/16 13:11 Bedside Glucose 176 183 Medications Medications Current Medications Acetaminophen (Tylenol Liquid) 640 mg Q6H PRN GTB PAIN OR TEMP ABOVE 38C Last administered on 10/07/16 17:51; Admin Dose 640 MG; Start 09/06/16 at 22:30 Allopurinol (Zyloprim) 200 mg DAILY GTB Last administered on 10/09/16 15:01; Admin Dose 200 MG; Start 09/07/16 at 09:00 Ascorbic Acid (Vitamin C) 500 mg BID GTB Last administered on 10/09/16 22:47; Admin Dose 500 MG; Start 09/07/16 at 09:00 Calcitriol (Rocaltrol) 0.25 mcg DAILY GTB Last administered on 10/09/16 15:01 ; Admin Dose 0.25 MCG; Start 09/07/16 at 09:00 Chlorhexidine Gluconate (Peridex) 15 ml BID MM Last administered on 10/10/16 10:45; Admin Dose 15 ML; Start 09/07/16 at 09:00 Metoclopramide HCl (Reglan) 5 mg Q8H PRN GTB NAUSEA AND/OR VOMITING; Start 09/06 at 22:30 Sucralfate (Carafate Susp) 1 gm BID GTB Last administered on 10/09/16 22:48; Admin Dose 1 GM; Start 09/07/16 at 09:00 Ondansetron HCl (Zofran Inj) 4 mg Q6H PRN IV NAUSEA AND/OR VOMITING Last administered on 09/17/16 00:52; Admin Dose 4 MG; Start 09/06/16 at 22:30 Morphine Sulfate (morphine) 2 mg Q4H PRN IV PAIN LEVEL 7-10 Last administered on 09/16/16 20:19; Admin Dose 2 MG; Start 09/06/16 at 22:30 Metoclopramide HCl (Reglan) 5 mg Q6H PRN IV RESIDUALS > 100; Start 09/10/16 at 19:00 Clonidine (Catapres) 0.1 mg Q6H PRN GTB ELEVATED SYSTOLIC BP Last administered on 09/15/16 07:04; Admin Dose 0.1 MG; Start 09/13/16 at 23:00 Hydralazine HCl (Apresoline) 10 mg Q6H PRN IV ELEVATED SYSTOLIC BP Last administered on 09/15/16 02:08; Admin Dose 10 MG; Start 09/15/16 at 01:50 Collagenase (Santyl) 1 applic DAILY TOP Last administered on 10/10/16 10:46; Admin Dose 1 APPLIC; Start 09/18/16 at 09:00 Glycopyrrolate (Robinul) 1 mg Q8 GTB Last administered on 10/10/16 05:55; Admin Dose 1 MG; Start 09/19/16 at 09:30 Amikacin Sulfate (Amikacin Iv Per Pharmacy) AMIKACIN PER PHARMACY NOTE XX ; Start 09/24/16 at 14:00 Miscellaneous Information 1 ea NOTE XX ; Start 09/28/16 at 09:00 Glucose (Glutose) 15 gm Q15M PRN PO DECREASED GLUCOSE; Start 09/28/16 at 09:00 Glucose (Glutose) 22.5 gm Q15M PRN PO DECREASED GLUCOSE; Start 09/28/16 at 09:00 Dextrose (D50w Syringe) 25 ml Q15M PRN IV DECREASED GLUCOSE Last administered on 09/29/16 18:18; Admin Dose 25 ML; Start 09/28/16 at 09:00 Dextrose (D50w Syringe) 50 ml Q15M PRN IV DECREASED GLUCOSE; Start 09/28/16 at 09:00 Glucagon (Glucagen) 1 mg Q15M PRN IM DECREASED GLUCOSE; Start 09/28/16 at 09:00 Glucose (Glutose) 15 gm Q15M PRN BUCCAL DECREASED GLUCOSE; Start 09/28/16 at 09: 00 Insulin Aspart (Novolog Insulin Pen) NOVOLOG *MILD* ALGORI... Q6 SC Last administered on 10/10/16 13:15; Admin Dose 2 UNIT; Start 09/29/16 at 00:00 IV Flush (NS 10 ml) 10 ml PRN PRN IV FLUSH LINE; Start 09/29/16 at 20:30 Epoetin Jeffry 6000 units 6,000 units [id number]@17 SC Last administered on 17:47; Admin Dose 6,000 UNITS; Start 10/01/16 at 17:00 Sodium Chloride 1,000 ml @ 50 mls/hr Q20H IV Last administered on 10/09/16 00 :59; Admin Dose 50 MLS/HR; Start 10/09/16 at 00:00 Vancomycin HCl 1.25 gm/Sodium Chloride 250 ml @ 83.333 mls/ hr Q96H IVPB Last administered on 10/09/16 21:49; Admin Dose 83.333 MLS/HR; Start 10/09/16 at 17: 00 Pantoprazole 80 mg/Sodium Chloride 100 ml @ 10 mls/hr Q10H IV Last administered on 10/10/16 13:00; Admin Dose 10 MLS/HR; Start 10/09/16 at 19:00 Norepinephrine 16 mg/Dextrose 500 ml @ 0 mls/hr TITRATE IV Last administered on 10/10/16 13:05; Admin Dose 46.87 MLS/HR; Start 10/10/16 at 08:30 Meropenem 100 ml @ 200 mls/hr Q12 IVPB ; Start 10/10/16 at 21:00 Levetiracetam/ Sodium Chloride (Keppra Iv/NS) 105 ml @ 420 mls/hr Q12 IVPB ; Start 10/10/16 at 21:00 QUIN ORTIZ Oct 10, 2016 14:39
[2016-10-10] MEDS: SOD CHLORIDE 0.9% 1,000 ML IV SCH ×2 (16:00→17:25)
[2016-10-10] MEDS: AMIKACIN 400 MG in SOD CHLORIDE 0.9% 100 ML IVPB SCH (17:23)
[2016-10-10] MEDS: EPOETIN 3000 UNITS/1 ML INJ (ESRD) SC SCH (17:24)
[2016-10-10] MEDS: MEROPENEM 500 MG/100 ML (PMX) 100 ML IVPB SCH (20:34)
[2016-10-10] MEDS: LEVETIRACETAM IV 500 MG in SOD CHLORIDE 0.9% 100 ML IVPB SCH (21:10)
[2016-10-11] VITALS (90 sets, daily range): BP systolic 86–140; BP diastolic 44–81; PULSE 80–110; RESP 6–24
[2016-10-11] MEDS: INSULIN ASPART [NOVOLOG] 3 ML PEN SC SCH ×4 (00:45→18:00)
[2016-10-11] MEDS: LEVALBUTEROL (HFA) 15 GM INHALER INH SCH ×4 (02:23→19:06)
[2016-10-11] MEDS: IPRATROPIUM (HFA) 12.9 GM INHALER INH SCH ×4 (02:24→19:06)
[2016-10-11 04:51] LABS: ADD SCAN DIFF NO
[2016-10-11 05:08] LABS: POTASSIUM 4.1 mmol/L (3.5-5.1)
[2016-10-11 05:10] LABS: CREATININE 1.58 mg/dl (0.61-1.24)
[2016-10-11 05:11] LABS: CALCIUM 7.5 mg/dl (8.4-10.2)
[2016-10-11] MEDS: GLYCOPYRROLATE 1 MG TAB GTB SCH ×3 (05:29→22:30)
[2016-10-11 05:31] LABS: ABNORMAL IP MESSAGE 1; BASOPHILS % 0.2 % (0.0-2.0); EOSINOPHILS # 0.1 10^3/ul (0.0-0.5); EOSINOPHILS % 1.6 % (0.0-7.0); HEMATOCRIT 23.3 % (42.0-52.0); HEMOGLOBIN 8.1 g/dl (14.0-18.0); LYMPHOCYTES # 0.2 10^3/ul (0.8-2.9); LYMPHOCYTES % 4.6 % (15.0-51.0); MEAN CORPUSCULAR HEMOGLOBIN 29.3 pg (29.0-33.0); MEAN CORPUSCULAR HGB CONC 34.8 g/dl (32.0-37.0); MEAN CORPUSCULAR VOLUME 84.4 fl (82.0-101.0); MEAN PLATELET VOLUME 10.9 fl (7.4-10.4); MONOCYTE # 0.4 10^3/ul (0.3-0.9); MONOCYTES % 8.4 % (0.0-11.0); NEUTROPHIL # 3.7 10^3/ul (1.6-7.5); NEUTROPHILS % 84.5 % (39.0-77.0); RED BLOOD COUNT 2.76 10^6/ul (4.70-6.10); RED CELL DISTRIBUTION WIDTH 17.2 % (11.5-14.5); WHITE BLOOD COUNT 4.4 10^3/ul (4.8-10.8)
[2016-10-11 06:25] LABS: PLATELET COUNT 28 10^3/UL (140-415)
[2016-10-11] MEDS: SEVELAMER CARBONATE 2.4 GM PKT GTB SCH ×3 (07:35→14:31)
[2016-10-11] MEDS: SUCRALFATE (100 MG/ML) 10ML CUP GTB SCH ×2 (08:19→20:50)
[2016-10-11] MEDS: CALCITRIOL 0.25 MCG CAP GTB SCH (08:19)
[2016-10-11] MEDS: ALLOPURINOL 100 MG TAB GTB SCH (08:20)
[2016-10-11] MEDS: ASCORBIC ACID 500 MG TAB GTB SCH ×2 (08:20→20:50)
[2016-10-11] MEDS: PANTOPRAZOLE IV 80 MG in SOD CHLORIDE 0.9% 100 ML IV SCH ×2 (09:04→22:32)
[2016-10-11] MEDS: MEROPENEM 500 MG/100 ML (PMX) 100 ML IVPB SCH ×2 (09:04→20:51)
[2016-10-11] MEDS: COLLAGENASE 30 GM TUBE TOP SCH (09:05)
--- NOTE | 2016-10-11 09:09 | PN ---
Date/Time of Note Date/Time of Note DATE: 10/11/16 TIME: 08:53 Assessment/Plan VTE Prophylaxis VTE Prophylaxis Intervention: SCD's Lines/Catheters IV [facility]ter Type (from [facility]): PICC Line Urinary Cath still in place: Yes Assessment/Plan Assessment/Plan - Shock hypovolemic, possibly septic. Continue ICU care, IVF, pressors, blood transfusion. -Severe anemia anemia secondary to GI bleed. Continue Protonix drip. Plan for possible endoscopy when patient is more stable. Continue blood transfusion. - Heparin-induced thrombocytopenia, hold heparin, patient status post platelets transfusion. - per Dr. Coughlin in hematology consultation. - GNR bacteremia, status of the PICC line exchange. - Severe anemia 2 GI bleed. Continue to monitor hemoglobin and hematocrit. - per Dr. Singh in gastroenterology consultation. - Acute kidney failure on chronic kidney disease. Continue to monitor BUN and creatinine. - per Dr. Mk Purdy in nephrology consultation. Patient with worsening renal function. Started on Hemodialysis during this admission. - Pancytopenia 2 chronic inflammation and sepsis. - Ventilator-dependent respiratory failure. - per Dr. Aragon in pulmonology consultation. Continue ventilator support, bronchodilators. - HCAP on admission. Status post treatment. - Dysphagia with PEG. - History of seizure disorder. - Continue patient on Keppra. -seizure precautions - Diastolic dysfunction congestive heart failure with preserved ejection fraction of 60%. - S/p sepsis on admission. - per Dr. Guy is following patient in infectious disease consultation. - Status post cerebrovascular accident, status post craniotomy. - Mental retardation. Continue Protonix for peptic ulcer disease prophylaxis. Further recommendations based on clinical course. Total critical time spent is 40 mins. Plan of care discussed with Dr. Mcelroy. Subjective 24 Hr Interval Summary Free Text/Dictation nad, remains intubated in ICU, on Norepinephrine drip at cc/hr, Protonix drip at cc/hr,seems comfortable, afebrile, abdominal distension noted. dw staff Subjective hx not possible: pt non-verbal Constitutional: requiring IVF, requiring O2 Exam/Review of Systems Vital Signs Vitals Vital Signs Date Time Temp Pulse Resp B/P Pulse Ox O2 Delivery O2 Flow Rate FiO2 10/11/16 08:00 99.6 96 19 118/49 100 Mechanical Ventilator 10/11/16 05:02 35 Intake and Output 10/10/16 10/10/16 10/11/16 15:00 23:00 07:00 Intake Total 860.615 ml 2129.09 ml 731.02 ml Output Total 1310 ml 2310 ml 295 ml Balance -449.385 ml -180.91 ml 436.02 ml Exam Constitutional: frail, non-verbal Eyes: nl sclera ENMT: nl external ears & nose Neck: non-tender Respiratory: diminished breath sounds (bilateral at bases) Cardiovascular: nl pulses Gastrointestinal: distended, soft Musculoskeletal: muscle weakness Extremities: edema Neurological: unresponsive Skin: other Lymph: nontender Results Result Diagram: 10/11/1643910/11/16 0440 Results 24 hrs Laboratory Tests Test 10/10/16 13:11 10/10/16 17:22 10/11/16 00:43 10/11/16 04:40 Bedside Glucose 183 175 146 Anion Gap 13 Basophils # 0.0 Basophils % 0.2 Blood Urea Nitrogen 103 H Calcium Level 7.5 L Carbon Dioxide Level 23 Chloride Level 101 Creatinine 1.58 H Eosinophils # 0.1 Eosinophils % 1.6 Glucose Level 124 Hematocrit 23.3 L Hemoglobin 8.1 L Lymphocytes # 0.2 L Lymphocytes % 4.6 L Mean Corpuscular Hemoglobin 29.3 Mean Corpuscular Hemoglobin Concent 34.8 Mean Corpuscular Volume 84.4 Mean Platelet Volume 10.9 H Monocytes # 0.4 Monocytes % 8.4 Neutrophils # 3.7 Neutrophils % 84.5 H Nucleated Red Blood Cells # 0.0 Nucleated Red Blood Cells % 0.0 Platelet Count 28 #*L Potassium Level 4.1 Red Blood Count 2.76 L Red Cell Distribution Width 17.2 H Sodium Level 133 L White Blood Count 4.4 #L Test 10/11/16 06:27 Bedside Glucose 157 Medications Medications Current Medications Acetaminophen (Tylenol Liquid) 640 mg Q6H PRN GTB PAIN OR TEMP ABOVE 38C Last administered on 10/07/16 17:51; Admin Dose 640 MG; Start 09/06/16 at 22:30 Allopurinol (Zyloprim) 200 mg DAILY GTB Last administered on 10/09/16 15:01; Admin Dose 200 MG; Start 09/07/16 at 09:00 Ascorbic Acid (Vitamin C) 500 mg BID GTB Last administered on 10/09/16 22:47; Admin Dose 500 MG; Start 09/07/16 at 09:00 Calcitriol (Rocaltrol) 0.25 mcg DAILY GTB Last administered on 10/09/16 15:01 ; Admin Dose 0.25 MCG; Start 09/07/16 at 09:00 Chlorhexidine Gluconate (Peridex) 15 ml BID MM Last administered on 10/10/16 20:34; Admin Dose 15 ML; Start 09/07/16 at 09:00 Metoclopramide HCl (Reglan) 5 mg Q8H PRN GTB NAUSEA AND/OR VOMITING; Start 09/06 at 22:30 Sucralfate (Carafate Susp) 1 gm BID GTB Last administered on 10/09/16 22:48; Admin Dose 1 GM; Start 09/07/16 at 09:00 Ondansetron HCl (Zofran Inj) 4 mg Q6H PRN IV NAUSEA AND/OR VOMITING Last administered on 09/17/16 00:52; Admin Dose 4 MG; Start 09/06/16 at 22:30 Morphine Sulfate (morphine) 2 mg Q4H PRN IV PAIN LEVEL 7-10 Last administered on 09/16/16 20:19; Admin Dose 2 MG; Start 09/06/16 at 22:30 Metoclopramide HCl (Reglan) 5 mg Q6H PRN IV RESIDUALS > 100; Start 09/10/16 at 19:00 Clonidine (Catapres) 0.1 mg Q6H PRN GTB ELEVATED SYSTOLIC BP Last administered on 09/15/16 07:04; Admin Dose 0.1 MG; Start 09/13/16 at 23:00 Hydralazine HCl (Apresoline) 10 mg Q6H PRN IV ELEVATED SYSTOLIC BP Last administered on 09/15/16 02:08; Admin Dose 10 MG; Start 09/15/16 at 01:50 Collagenase (Santyl) 1 applic DAILY TOP Last administered on 10/10/16 10:46; Admin Dose 1 APPLIC; Start 09/18/16 at 09:00 Glycopyrrolate (Robinul) 1 mg Q8 GTB Last administered on 10/10/16 05:55; Admin Dose 1 MG; Start 09/19/16 at 09:30 Amikacin Sulfate (Amikacin Iv Per Pharmacy) AMIKACIN PER PHARMACY NOTE XX ; Start 09/24/16 at 14:00 Miscellaneous Information 1 ea NOTE XX ; Start 09/28/16 at 09:00 Glucose (Glutose) 15 gm Q15M PRN PO DECREASED GLUCOSE; Start 09/28/16 at 09:00 Glucose (Glutose) 22.5 gm Q15M PRN PO DECREASED GLUCOSE; Start 09/28/16 at 09:00 Dextrose (D50w Syringe) 25 ml Q15M PRN IV DECREASED GLUCOSE Last administered on 09/29/16 18:18; Admin Dose 25 ML; Start 09/28/16 at 09:00 Dextrose (D50w Syringe) 50 ml Q15M PRN IV DECREASED GLUCOSE; Start 09/28/16 at 09:00 Glucagon (Glucagen) 1 mg Q15M PRN IM DECREASED GLUCOSE; Start 09/28/16 at 09:00 Glucose (Glutose) 15 gm Q15M PRN BUCCAL DECREASED GLUCOSE; Start 09/28/16 at 09: 00 Insulin Aspart (Novolog Insulin Pen) NOVOLOG *MILD* ALGORI... Q6 SC Last administered on 10/11/16 06:33; Admin Dose 1 UNIT; Start 09/29/16 at 00:00 IV Flush (NS 10 ml) 10 ml PRN PRN IV FLUSH LINE; Start 09/29/16 at 20:30 Epoetin Jeffry 6000 units 6,000 units [id number]@17 SC Last administered on 17:24; Admin Dose 6,000 UNITS; Start 10/01/16 at 17:00 Sodium Chloride 1,000 ml @ 50 mls/hr Q20H IV Last administered on 10/10/16 17 :25; Admin Dose 50 MLS/HR; Start 10/09/16 at 00:00 Vancomycin HCl 1.25 gm/Sodium Chloride 250 ml @ 83.333 mls/ hr Q96H IVPB Last administered on 10/09/16 21:49; Admin Dose 83.333 MLS/HR; Start 10/09/16 at 17: 00 Pantoprazole 80 mg/Sodium Chloride 100 ml @ 10 mls/hr Q10H IV Last administered on 10/10/16 22:36; Admin Dose 10 MLS/HR; Start 10/09/16 at 19:00 Norepinephrine 16 mg/Dextrose 500 ml @ 0 mls/hr TITRATE IV Last administered on 10/11/16 00:47; Admin Dose 37.5 MLS/HR; Start 10/10/16 at 08:30 Meropenem 100 ml @ 200 mls/hr Q12 IVPB Last administered on 10/10/16 20:34; Admin Dose 200 MLS/HR; Start 10/10/16 at 21:00 Levetiracetam/ Sodium Chloride (Keppra Iv/NS) 105 ml @ 420 mls/hr Q12 IVPB Last administered on 10/10/16 21:10; Admin Dose 420 MLS/HR; Start 10/10/16 at 21:00 KRISTOPHER SOTO Oct 11, 2016 09:05
[2016-10-11] MEDS: CHLORHEXIDINE GLUCONATE 15 ML UD CUP MM SCH ×2 (09:14→20:50)
[2016-10-11] MEDS: LEVETIRACETAM IV 500 MG in SOD CHLORIDE 0.9% 100 ML IVPB SCH ×2 (09:14→20:51)
--- NOTE | 2016-10-11 10:12 | CONS ---
Date/Time of Note Date/Time of Note DATE: 10/11/16 TIME: 10:10 Assessment/Plan Assessment/Plan Additional Assessment/Plan 1. Acute kidney injury on possible chronic kidney disease unknown stage secondary to severe prerenal azotemia causing ischemic acute tubular necrosis in the setting of severe anemia.- continue to have Anuria with uremic symptoms and GI bleeding- started on HD during this admission 2. Severe anemia,s/p PRBC 3. Chronic respiratory failure, status post tracheostomy, on vent. 4. Pancytopenia. 5. History of a seizure disorder. 6. thrombocytopenia 7. Hypotension due to bleeding/sepsis PLAN: s/p HD yesterday 1 L UF done BP stable today will continue HD on MWF will continue to follow up on patient Consultation Date/Type/Reason Admit Date/Time Sep 06, 2016 at 22:27 Initial Consult Date Aug Type of Consultation: NEPHROLOGY Reason for Consultation ESRD on HD, started on during this admission Referring Provider: FREDDY COELLO MD 24 HR Interval Summary Free Text/Dictation S/p HD yesterday 1 liter - BP stable today, still remains intubated Exam/Review of Systems Vital Signs Vitals Vital Signs Date Time Temp Pulse Resp B/P Pulse Ox O2 Delivery O2 Flow Rate FiO2 10/11/16 08:00 99.6 96 19 118/49 100 Mechanical Ventilator 10/11/16 05:02 35 Intake and Output 10/10/16 10/10/16 10/11/16 15:00 23:00 07:00 Intake Total 860.615 ml 2129.09 ml 731.02 ml Output Total 1310 ml 2310 ml 295 ml Balance -449.385 ml -180.91 ml 436.02 ml Exam GENERAL: chronically ill-appearing, middle-aged man who is lying comfortably in bed. HEENT: Head atraumatic, normocephalic. Sclerae anicteric. Buccal mucosa dry. NECK: Supple. Tracheostomy present. CHEST: Rise symmetrical. Breath sounds diminished. HEART: S1, S2. ABDOMEN: Soft, bowel tones present. EXTREMITIES: Without cyanosis. Contractured. + permacath Right IJ Results Result Diagram: 10/11/16 0440 10/11/16 0440 Results 24 hrs Laboratory Tests Test 10/10/16 13:11 10/10/16 17:22 10/11/16 00:43 10/11/16 04:40 Bedside Glucose 183 175 146 Anion Gap 13 Basophils # 0.0 Basophils % 0.2 Blood Urea Nitrogen 103 H Calcium Level 7.5 L Carbon Dioxide Level 23 Chloride Level 101 Creatinine 1.58 H Eosinophils # 0.1 Eosinophils % 1.6 Glucose Level 124 Hematocrit 23.3 L Hemoglobin 8.1 L Lymphocytes # 0.2 L Lymphocytes % 4.6 L Mean Corpuscular Hemoglobin 29.3 Mean Corpuscular Hemoglobin Concent 34.8 Mean Corpuscular Volume 84.4 Mean Platelet Volume 10.9 H Monocytes # 0.4 Monocytes % 8.4 Neutrophils # 3.7 Neutrophils % 84.5 H Nucleated Red Blood Cells # 0.0 Nucleated Red Blood Cells % 0.0 Platelet Count 28 #*L Potassium Level 4.1 Red Blood Count 2.76 L Red Cell Distribution Width 17.2 H Sodium Level 133 L White Blood Count 4.4 #L Test 10/11/16 06:27 Bedside Glucose 157 Medications Medications Current Medications Acetaminophen (Tylenol Liquid) 640 mg Q6H PRN GTB PAIN OR TEMP ABOVE 38C Last administered on 10/07/16 17:51; Admin Dose 640 MG; Start 09/06/16 at 22:30 Allopurinol (Zyloprim) 200 mg DAILY GTB Last administered on 10/09/16 15:01; Admin Dose 200 MG; Start 09/07/16 at 09:00 Ascorbic Acid (Vitamin C) 500 mg BID GTB Last administered on 10/09/16 22:47; Admin Dose 500 MG; Start 09/07/16 at 09:00 Calcitriol (Rocaltrol) 0.25 mcg DAILY GTB Last administered on 10/09/16 15:01 ; Admin Dose 0.25 MCG; Start 09/07/16 at 09:00 Chlorhexidine Gluconate (Peridex) 15 ml BID MM Last administered on 10/11/16 09:14; Admin Dose 15 ML; Start 09/07/16 at 09:00 Metoclopramide HCl (Reglan) 5 mg Q8H PRN GTB NAUSEA AND/OR VOMITING; Start 09/06 at 22:30 Sucralfate (Carafate Susp) 1 gm BID GTB Last administered on 10/09/16 22:48; Admin Dose 1 GM; Start 09/07/16 at 09:00 Ondansetron HCl (Zofran Inj) 4 mg Q6H PRN IV NAUSEA AND/OR VOMITING Last administered on 09/17/16 00:52; Admin Dose 4 MG; Start 09/06/16 at 22:30 Morphine Sulfate (morphine) 2 mg Q4H PRN IV PAIN LEVEL 7-10 Last administered on 09/16/16 20:19; Admin Dose 2 MG; Start 09/06/16 at 22:30 Metoclopramide HCl (Reglan) 5 mg Q6H PRN IV RESIDUALS > 100; Start 09/10/16 at 19:00 Clonidine (Catapres) 0.1 mg Q6H PRN GTB ELEVATED SYSTOLIC BP Last administered on 09/15/16 07:04; Admin Dose 0.1 MG; Start 09/13/16 at 23:00 Hydralazine HCl (Apresoline) 10 mg Q6H PRN IV ELEVATED SYSTOLIC BP Last administered on 09/15/16 02:08; Admin Dose 10 MG; Start 09/15/16 at 01:50 Collagenase (Santyl) 1 applic DAILY TOP Last administered on 10/11/16 09:05; Admin Dose 1 APPLIC; Start 09/18/16 at 09:00 Glycopyrrolate (Robinul) 1 mg Q8 GTB Last administered on 10/10/16 05:55; Admin Dose 1 MG; Start 09/19/16 at 09:30 Amikacin Sulfate (Amikacin Iv Per Pharmacy) AMIKACIN PER PHARMACY NOTE XX ; Start 09/24/16 at 14:00 Miscellaneous Information 1 ea NOTE XX ; Start 09/28/16 at 09:00 Glucose (Glutose) 15 gm Q15M PRN PO DECREASED GLUCOSE; Start 09/28/16 at 09:00 Glucose (Glutose) 22.5 gm Q15M PRN PO DECREASED GLUCOSE; Start 09/28/16 at 09:00 Dextrose (D50w Syringe) 25 ml Q15M PRN IV DECREASED GLUCOSE Last administered on 09/29/16 18:18; Admin Dose 25 ML; Start 09/28/16 at 09:00 Dextrose (D50w Syringe) 50 ml Q15M PRN IV DECREASED GLUCOSE; Start 09/28/16 at 09:00 Glucagon (Glucagen) 1 mg Q15M PRN IM DECREASED GLUCOSE; Start 09/28/16 at 09:00 Glucose (Glutose) 15 gm Q15M PRN BUCCAL DECREASED GLUCOSE; Start 09/28/16 at 09: 00 Insulin Aspart (Novolog Insulin Pen) NOVOLOG *MILD* ALGORI... Q6 SC Last administered on 10/11/16 06:33; Admin Dose 1 UNIT; Start 09/29/16 at 00:00 IV Flush (NS 10 ml) 10 ml PRN PRN IV FLUSH LINE; Start 09/29/16 at 20:30 Epoetin Jeffry 6000 units 6,000 units MoWeFr@17 SC Last administered on 17:24; Admin Dose 6,000 UNITS; Start 10/01/16 at 17:00 Sodium Chloride 1,000 ml @ 50 mls/hr Q20H IV Last administered on 10/10/16 17 :25; Admin Dose 50 MLS/HR; Start 10/09/16 at 00:00 Vancomycin HCl 1.25 gm/Sodium Chloride 250 ml @ 83.333 mls/ hr Q96H IVPB Last administered on 10/09/16 21:49; Admin Dose 83.333 MLS/HR; Start 10/09/16 at 17: 00 Pantoprazole 80 mg/Sodium Chloride 100 ml @ 10 mls/hr Q10H IV Last administered on 10/11/16 09:04; Admin Dose 10 MLS/HR; Start 10/09/16 at 19:00 Norepinephrine 16 mg/Dextrose 500 ml @ 0 mls/hr TITRATE IV Last administered on 10/11/16 00:47; Admin Dose 37.5 MLS/HR; Start 10/10/16 at 08:30 Meropenem 100 ml @ 200 mls/hr Q12 IVPB Last administered on 10/11/16 09:04; Admin Dose 200 MLS/HR; Start 10/10/16 at 21:00 Levetiracetam/ Sodium Chloride (Keppra Iv/NS) 105 ml @ 420 mls/hr Q12 IVPB Last administered on 10/11/16 09:14; Admin Dose 420 MLS/HR; Start 10/10/16 at 21:00 KENIA TURCIOS MD Oct 11, 2016 10:11
--- NOTE | 2016-10-11 10:28 | RADRPT ---
AMENDMENT: 10/11/2016 2:41:28 PM Yoan George MD Correction: There is thrombosis of the left internal jugular vein with lack of flow and lack of com pressibility. A left arm PICC line is noted in the basilic, brachial, axillary, and subclavian vein s. PROCEDURE: US bilateral upper extremity veins. CLINICAL INDICATION: Bilateral upper extremity pain and swelling. TECHNIQUE: Multiple longitudinal and transverse images of the bilateral upper extremity venous yane e was obtained with smith scale and color Doppler imaging. COMPARISON: Left upper extremity venous Doppler dated 10/05/2016 which was normal. FINDINGS: The internal jugular, subclavian, axillary, brachial, basilic, cephalic, radial, and ulnar veins are patent bilaterally. There is normal flow with augmentation and compressibility throughout. There i s no thrombus or occlusion. There is diffuse bilateral subcutaneous soft tissue edema. IMPRESSION: 1. Normal venous system of the upper extremities. No evidence of thrombus or occlusion. 2. Diffuse bilateral subcutaneous soft tissue edema. RPTAT: QQ .Yoan George MD, MD Date Time Electronically viewed and signed by .Yoan George MD, MD on 10/11/2016 14:41 .R/
--- NOTE | 2016-10-11 11:11 | RADRPT ---
PROCEDURE: BILATERAL US DVT. CLINICAL INDICATION: Lower extremity edema. TECHNIQUE: Multiple longitudinal and transverse images of the bilateral lower extremity veins were obtained with smith scale and color Doppler imaging with augmentation and compression techniques. COMPARISON: No prior studies are available for comparison. FINDINGS: RIGHT: The right common femoral, femoral, and popliteal veins are normally compressible throughout w ith color flow demonstrating normal filling of these vessels. No filling defects are seen. LEFT: The left common femoral, femoral, and popliteal veins are normally compressible throughout wi th color flow demonstrate normal filling of these vessel.No filling defects are seen. IMPRESSION: 1. No evidence of a deep vein thrombosis involving the bilateral lower extremities. RPTAT:PP .Lui Kaye MD, MD Date Time Electronically viewed and signed by .Lui Kaye MD, on 10/11/2016 11:11 .V/
[2016-10-11] MEDS: SOD CHLORIDE 0.9% 1,000 ML IV SCH ×2 (12:00→14:30)
--- NOTE | 2016-10-11 13:15 | RADRPT ---
PROCEDURE: XR Abdomen. CLINICAL INDICATION: Abdominal pain TECHNIQUE: Single AP view of the abdomen is available for review. COMPARISON: 04/14/2016 FINDINGS: Evaluation is limited secondary to patient rotation to the right. The bowel gas pattern is normal. There is no evidence of obstruction. A G tube overlies the mid abdomen. An NG tube is in place with the tip in the region of the distal stomach. There are no abnormal calcifications overlying the ur inary tracts. There is a displaced fracture of the right femoral neck. Internal fixation hardware i s present within the left femur. Hazy densities in the bilateral lower lobe may represent effusion a nd/or atelectasis/infiltrate. IMPRESSION: 1. New right femoral neck displaced fracture. 2. Nonspecific bowel gas pattern 3. Hazy bilateral lower lobe densities may represent effusion and/or atelectasis/infiltrate. Findings discussed with ICU nurse Ranjana Preciado for Dr. Vásquez on 10/11/2016 at 01:12 p.m. RPTAT: JJ .Malvin Sinha MD, MD Date Time Electronically viewed and signed by .Malvin Sinha MD, MD on 10/11/2016 13:14 .A/
--- NOTE | 2016-10-11 14:14 | PN ---
DATE: 10/11/2016 SUBJECTIVE: Patient remains obtunded on pressors with persistent cough that grew out secretions fro m NG tube, with increased anasarca. VITAL SIGNS: Temperature 99.6, pulse 95, respirations 16, blood pressure 110/57, saturation 100 on vent. WBC 4.4, H and H 8.1 and 23.3, platelets 28, neutrophils 84.5. MICROBIOLOGY: Repeat blood culture growing gram-negative rods. ANTIMICROBIALS: 1. Merrem. 2. Vancomycin. 3. Amikacin. INDWELLINGS: Trach, PEG, left upper extremity PICC line, right chest Perm-A-Cath. PHYSICAL EXAMINATION: GENERAL: Chronically ill-appearing, elderly man who is lying comfortably in bed. Patient is nonver bal, noncommunicative. HEENT: Head atraumatic, normocephalic. Sclerae anicteric. Buccal mucosa dry. NECK: Obese. CHEST: Rise symmetrical. Breath sounds diminished. HEART: S1, S2. ABDOMEN: Distended. Bowel tones hypoactive. Extremities contractured. Skin with severe anasarca and multiple unstageable decubitus with foul odor. ASSESSMENT: 1. Severe sepsis with shock and multisystem organ failure. 2. Persistent Gram-negative julita bacteremia. 3. Multiple chronic wounds with possible osteomyelitis. 4. Anemia with progressive thrombocytopenia. 5. Acute on chronic kidney disease, hemodialysis dependent. 6. Chronic encephalopathy. 7. Chronic respiratory failure. PLAN: The patient remains hemodynamically unstable, overall doing poorly. Blood cultures repeated yesterday still positive. He is covered with broad spectrum antibiotics, which we are going to cont inue. The patient's prognosis is very poor. He needs to have a new lines which is a problem, given his severe anasarca, poor vascular access and multiple IV antibiotic and vasopressor support. Pend ing ethics committee, the patient is still FULL CODE. Dictated By: ARUN DIANA [employer] for KAT VYAS/NIKOLAI Conf#: [id number] DID#: [id number]
--- NOTE | 2016-10-11 16:26 | CONS ---
Date/Time of Note Date/Time of Note DATE: 10/11/16 TIME: 16:25 Assessment/Plan Assessment/Plan Chief Complaint/Hosp Course 56 year old male with mental retardation, ventilator dependent respiratory failure, ESRD on HD with continue GI bleed. Pt had melanotic stool this morning with an acute drop in Hg to 3. # Normocytic anemia, likely multifactorial due to GI bleed, chronic kidney disease, likely chronic inflammation - currently Hgb 8.1 today. If Hg< 8 will transfuse 2 more units of PRBC - Iron panel suggests anemia of chronic inflammation, high ferritin as expected. ; B12/folate WNL, LDH not elevated, retic count inappropriately low - Continue epo. - Agree with blood transfusion with HD to be given today. # Thrombocytopenia, likely related to sepsis, consumption. - NO HEPARIN for patient given + HIT antibody, although suspicion for HIT low given low optical density (OD of 0.652). Will send serotonin release assay. Hold anticoagulation in the setting of severe anemia/GIB. - Given GI bleed, will try to keep platelets > 50. Will transfuse 1 units now for platelets 28,000. - Possible contribution due to sepsis as well particularly in the setting of recent fever, and now with GNR bacteremia. DIC panel may suggest component of DIC with prolongs coags and elevated D dimer with rare schistocytes on smear though fibrin split products not elevated. HIV and Hep panel negative. Continue to monitor platelet count - Peripheral smear reviewed by pathology and confirms decreased platelet count, no microangiopathic changes, rare schistocytes, occasional metamyelocytes, mild bandemia, and no blasts - Abdominal US was technically limited study due to patient's inability to cooperate demonstrating mild hepatomegaly with a slightly coarsened echotexture which may indicate steatosis/hepatic cellular disease. Problems: Consultation Date/Type/Reason Admit Date/Time Sep 06, 2016 at 22:27 Initial Consult Date 10/03/16 Type of Consultation: Hematology/Oncology Referring Provider: FREDDY COELLO MD 24 HR Interval Summary Free Text/Dictation No significant change. Patient continues to have coffee ground emesis in NG tube. Exam/Review of Systems Vital Signs Vitals Vital Signs Date Time Temp Pulse Resp B/P Pulse Ox O2 Delivery O2 Flow Rate FiO2 10/11/16 16:00 89 10/11/16 15:45 13 116/53 100 Mechanical Ventilator 10/11/16 15:00 35 3/16/17 11:45 99.0 Intake and Output 10/10/16 10/10/16 10/11/16 15:00 23:00 07:00 Intake Total 860.615 ml 2129.09 ml 731.02 ml Output Total 1310 ml 2310 ml 295 ml Balance -449.385 ml -180.91 ml 436.02 ml Exam Constitutional: non-verbal Head: normocephalic Eyes: nl conjunctiva Neck: other (trach) Respiratory: crackles/rales Cardiovascular: other (tachycardic) Gastrointestinal: other (PEG in place) Musculoskeletal: swelling Results Result Diagram: 10/11/16 0440 10/11/16 0440 Results 24 hrs Laboratory Tests Test 10/10/16 17:22 10/11/16 00:43 10/11/16 04:40 10/11/16 06:27 Bedside Glucose 175 146 157 Anion Gap 13 Basophils # 0.0 Basophils % 0.2 Blood Urea Nitrogen 103 H Calcium Level 7.5 L Carbon Dioxide Level 23 Chloride Level 101 Creatinine 1.58 H Eosinophils # 0.1 Eosinophils % 1.6 Glucose Level 124 Hematocrit 23.3 L Hemoglobin 8.1 L Lymphocytes # 0.2 L Lymphocytes % 4.6 L Mean Corpuscular Hemoglobin 29.3 Mean Corpuscular Hemoglobin Concent 34.8 Mean Corpuscular Volume 84.4 Mean Platelet Volume 10.9 H Monocytes # 0.4 Monocytes % 8.4 Neutrophils # 3.7 Neutrophils % 84.5 H Nucleated Red Blood Cells # 0.0 Nucleated Red Blood Cells % 0.0 Platelet Count 28 #*L Potassium Level 4.1 Red Blood Count 2.76 L Red Cell Distribution Width 17.2 H Sodium Level 133 L White Blood Count 4.4 #L Test 10/11/16 12:22 Bedside Glucose 152 Medications Medications Current Medications Acetaminophen (Tylenol Liquid) 640 mg Q6H PRN GTB PAIN OR TEMP ABOVE 38C Last administered on 10/07/16 17:51; Admin Dose 640 MG; Start 09/06/16 at 22:30 Allopurinol (Zyloprim) 200 mg DAILY GTB Last administered on 10/09/16 15:01; Admin Dose 200 MG; Start 09/07/16 at 09:00 Ascorbic Acid (Vitamin C) 500 mg BID GTB Last administered on 10/09/16 22:47; Admin Dose 500 MG; Start 09/07/16 at 09:00 Calcitriol (Rocaltrol) 0.25 mcg DAILY GTB Last administered on 10/09/16 15:01 ; Admin Dose 0.25 MCG; Start 09/07/16 at 09:00 Chlorhexidine Gluconate (Peridex) 15 ml BID MM Last administered on 10/11/16 09:14; Admin Dose 15 ML; Start 09/07/16 at 09:00 Metoclopramide HCl (Reglan) 5 mg Q8H PRN GTB NAUSEA AND/OR VOMITING; Start 09/06 at 22:30 Sucralfate (Carafate Susp) 1 gm BID GTB Last administered on 10/09/16 22:48; Admin Dose 1 GM; Start 09/07/16 at 09:00 Ondansetron HCl (Zofran Inj) 4 mg Q6H PRN IV NAUSEA AND/OR VOMITING Last administered on 09/17/16 00:52; Admin Dose 4 MG; Start 09/06/16 at 22:30 Morphine Sulfate (morphine) 2 mg Q4H PRN IV PAIN LEVEL 7-10 Last administered on 09/16/16 20:19; Admin Dose 2 MG; Start 09/06/16 at 22:30 Metoclopramide HCl (Reglan) 5 mg Q6H PRN IV RESIDUALS > 100; Start 09/10/16 at 19:00 Clonidine (Catapres) 0.1 mg Q6H PRN GTB ELEVATED SYSTOLIC BP Last administered on 09/15/16 07:04; Admin Dose 0.1 MG; Start 09/13/16 at 23:00 Hydralazine HCl (Apresoline) 10 mg Q6H PRN IV ELEVATED SYSTOLIC BP Last administered on 09/15/16 02:08; Admin Dose 10 MG; Start 09/15/16 at 01:50 Collagenase (Santyl) 1 applic DAILY TOP Last administered on 10/11/16 09:05; Admin Dose 1 APPLIC; Start 09/18/16 at 09:00 Glycopyrrolate (Robinul) 1 mg Q8 GTB Last administered on 10/10/16 05:55; Admin Dose 1 MG; Start 09/19/16 at 09:30 Amikacin Sulfate (Amikacin Iv Per Pharmacy) AMIKACIN PER PHARMACY NOTE XX ; Start 09/24/16 at 14:00 Miscellaneous Information 1 ea NOTE XX ; Start 09/28/16 at 09:00 Glucose (Glutose) 15 gm Q15M PRN PO DECREASED GLUCOSE; Start 09/28/16 at 09:00 Glucose (Glutose) 22.5 gm Q15M PRN PO DECREASED GLUCOSE; Start 09/28/16 at 09:00 Dextrose (D50w Syringe) 25 ml Q15M PRN IV DECREASED GLUCOSE Last administered on 09/29/16 18:18; Admin Dose 25 ML; Start 09/28/16 at 09:00 Dextrose (D50w Syringe) 50 ml Q15M PRN IV DECREASED GLUCOSE; Start 09/28/16 at 09:00 Glucagon (Glucagen) 1 mg Q15M PRN IM DECREASED GLUCOSE; Start 09/28/16 at 09:00 Glucose (Glutose) 15 gm Q15M PRN BUCCAL DECREASED GLUCOSE; Start 09/28/16 at 09: 00 Insulin Aspart (Novolog Insulin Pen) NOVOLOG *MILD* ALGORI... Q6 SC Last administered on 10/11/16 12:27; Admin Dose 1 UNIT; Start 09/29/16 at 00:00 IV Flush (NS 10 ml) 10 ml PRN PRN IV FLUSH LINE; Start 09/29/16 at 20:30 Epoetin Jeffry 6000 units 6,000 units MoWeFr@17 SC Last administered on 17:24; Admin Dose 6,000 UNITS; Start 10/01/16 at 17:00 Sodium Chloride 1,000 ml @ 50 mls/hr Q20H IV Last administered on 10/11/16 14 :30; Admin Dose 50 MLS/HR; Start 10/09/16 at 00:00 Vancomycin HCl 1.25 gm/Sodium Chloride 250 ml @ 83.333 mls/ hr Q96H IVPB Last administered on 10/09/16 21:49; Admin Dose 83.333 MLS/HR; Start 10/09/16 at 17: 00 Pantoprazole 80 mg/Sodium Chloride 100 ml @ 10 mls/hr Q10H IV Last administered on 10/11/16 09:04; Admin Dose 10 MLS/HR; Start 10/09/16 at 19:00 Norepinephrine 16 mg/Dextrose 500 ml @ 0 mls/hr TITRATE IV Last administered on 10/11/16 00:47; Admin Dose 37.5 MLS/HR; Start 10/10/16 at 08:30 Meropenem 100 ml @ 200 mls/hr Q12 IVPB Last administered on 10/11/16 09:04; Admin Dose 200 MLS/HR; Start 10/10/16 at 21:00; Stop 10/11/16 at 23:45 Levetiracetam 500 mg/Sodium Chloride 105 ml @ 420 mls/hr Q12 IVPB Last administered on 10/11/16 09:14; Admin Dose 420 MLS/HR; Start 10/10/16 at 21:00 Meropenem (Merrem 500 Mg/ 100 ml (Pmx)) 100 ml @ 200 mls/hr Q24H IVPB ; Start 10/12/16 at 21:00 TONORMA MD Oct 11, 2016 16:26
--- NOTE | 2016-10-11 17:38 | PN ---
DATE: 10/11/2016 SUBJECTIVE: The patient's general condition same. He is noncognitive. There is no eye opening. H e is breathing comfortably with ventilator support. PHYSICAL EXAMINATION: VITAL SIGNS: Stable. Blood pressure 116/53, pulse rate is 96, respirations 13, pulse oximetry show ing 100% saturation. Levophed drip is being gradually reduced to 12 mcg doses now. NECK: Tracheal secretions are clear. No bleeding is seen. HEART: Regular rhythm. CHEST: Breath sounds are heard bilaterally, diminished in both the lower lung [place] with a few int ermittent rales and rhonchi. ABDOMEN: Soft, not distended. G-tube feedings on hold. EXTREMITIES: Generalized edema in all the extremities. LABORATORY TEST RESULTS: Sodium 133, potassium 4.1, BUN is 103, creatinine 1.58, glucose 124. The hematology shows WBC 4400, hemoglobin 8.1, hematocrit 23.3, platelets are one again decreased to 28, 000. The repeat blood cultures again show gram-negative rods indicative of persistent gram-negative bacil li bacteremia. The venous Doppler studies on both sides are negative for deep vein thrombosis. MEDICATIONS: The patient is on: 1. Meropenem. 2. Vancomycin. 3. Amikacin. IMPRESSION: 1. Septic shock secondary to gram-negative sepsis. 2. Chronic respiratory failure, ventilator dependent. 3. History of seizure disorder. 4. Chronic encephalopathy. 5. Acute renal failure on dialysis. 6. Pancytopenia. 7. History of developmental delay. PLAN: 1. Continue long-term ventilator support. 2. Continue pressor drugs to stabilize the blood pressure. 3. Continue antibiotics as per the ID dynamics ax consultant. 4. Continue dialysis per attorney. 5. Continue bronchodilator inhalation therapy. Dictated By: VEENA STREETER MD SR/NTS Conf#: [id number] DID#: [id number]
[2016-10-12] VITALS (94 sets, daily range): BP systolic 86–154; BP diastolic 48–73; PULSE 82–123; RESP 0–25
[2016-10-12] MEDS: IPRATROPIUM (HFA) 12.9 GM INHALER INH SCH ×4 (01:30→19:30)
[2016-10-12] MEDS: LEVALBUTEROL (HFA) 15 GM INHALER INH SCH ×4 (01:31→19:30)
[2016-10-12 04:37] LABS: ADD SCAN DIFF NO
[2016-10-12 04:49] LABS: ABNORMAL IP MESSAGE 1; BASOPHILS % 0.2 % (0.0-2.0); HEMATOCRIT 23.1 % (42.0-52.0); HEMOGLOBIN 7.7 g/dl (14.0-18.0); LYMPHOCYTES # 0.2 10^3/ul (0.8-2.9); LYMPHOCYTES % 4.4 % (15.0-51.0); MEAN CORPUSCULAR HEMOGLOBIN 28.6 pg (29.0-33.0); MEAN CORPUSCULAR HGB CONC 33.3 g/dl (32.0-37.0); MEAN CORPUSCULAR VOLUME 85.9 fl (82.0-101.0); MEAN PLATELET VOLUME 10.6 fl (7.4-10.4); MONOCYTE # 0.4 10^3/ul (0.3-0.9); MONOCYTES % 9.8 % (0.0-11.0); NEUTROPHIL # 3.4 10^3/ul (1.6-7.5); NEUTROPHILS % 83.9 % (39.0-77.0); PLATELET COUNT 38 10^3/UL (140-415); RED BLOOD COUNT 2.69 10^6/ul (4.70-6.10); RED CELL DISTRIBUTION WIDTH 17.5 % (11.5-14.5); WHITE BLOOD COUNT 4.1 10^3/ul (4.8-10.8)
[2016-10-12] MEDS: INSULIN ASPART [NOVOLOG] 3 ML PEN SC SCH ×5 (06:00→23:47)
[2016-10-12] MEDS: GLYCOPYRROLATE 1 MG TAB GTB SCH ×3 (06:00→21:51)
[2016-10-12] MEDS: SEVELAMER CARBONATE 2.4 GM PKT GTB SCH ×3 (07:35→17:35)
--- NOTE | 2016-10-12 08:30 | CONS ---
Date/Time of Note Date/Time of Note DATE: 10/12/16 TIME: 08:27 Assessment/Plan Assessment/Plan Chief Complaint/Hosp Course 56 year old male with mental retardation, ventilator dependent respiratory failure, ESRD on HD with continued GI bleed. # Normocytic anemia, likely multifactorial due to GI bleed, chronic kidney disease, likely chronic inflammation - currently Hgb 7.7 today, will transfuse 2 units pRBCs and 1 unit of platelets for platelets 38,000. If Hg< 8 will transfuse 2 more units of PRBC. Plan for EGD when stable per GI. - Iron panel suggests anemia of chronic inflammation, high ferritin as expected. ; B12/folate WNL, LDH not elevated, retic count inappropriately low - Continue epo. - Agree with blood transfusion with HD to be given today. # Thrombocytopenia, likely related to sepsis, consumption. - NO HEPARIN for patient given + HIT antibody, although suspicion for HIT low given low optical density (OD of 0.652). Will send serotonin release assay. Hold anticoagulation in the setting of severe anemia/GIB. - Given GI bleed, will try to keep platelets > 50. Will transfuse 1 units now for platelets 38,000. - Possible contribution due to sepsis as well particularly in the setting of recent fever, and now with GNR bacteremia. DIC panel may suggest component of DIC with prolongs coags and elevated D dimer with rare schistocytes on smear though fibrin split products not elevated. HIV and Hep panel negative. Continue to monitor platelet count - Peripheral smear reviewed by pathology and confirms decreased platelet count, no microangiopathic changes, rare schistocytes, occasional metamyelocytes, mild bandemia, and no blasts - Abdominal US was technically limited study due to patient's inability to cooperate demonstrating mild hepatomegaly with a slightly coarsened echotexture which may indicate steatosis/hepatic cellular disease. Problems: Consultation Date/Type/Reason Admit Date/Time Sep 06, 2016 at 22:27 Initial Consult Date 10/03/16 Type of Consultation: Hematology/Oncology Referring Provider: FREDDY COELLO MD 24 HR Interval Summary Free Text/Dictation Patient continues to have coffee ground emesis. Plan for EGD when stable. Patient is currently on one pressor. Exam/Review of Systems Vital Signs Vitals Vital Signs Date Time Temp Pulse Resp B/P Pulse Ox O2 Delivery O2 Flow Rate FiO2 10/12/16 08:00 40 10/12/16 06:30 96 3 113/50 100 10/12/16 04:00 98.9 10/11/16 20:00 Mechanical Ventilator Intake and Output 10/11/16 10/11/16 10/12/16 15:00 23:00 07:00 Intake Total 1006.25 ml 582.65 ml 525 ml Output Total 200 ml 0 ml Balance 806.25 ml 582.65 ml 525 ml Exam Constitutional: non-verbal Head: normocephalic Eyes: nl conjunctiva Neck: other (trach) Respiratory: crackles/rales Cardiovascular: other (tachycardic) Gastrointestinal: other (PEG in place) Musculoskeletal: swelling Results Result Diagram: 10/12/16 0340 10/11/16 0440 Results 24 hrs Laboratory Tests Test 10/11/16 12:22 10/11/16 18:12 10/12/16 03:40 Bedside Glucose 152 93 Basophils # 0.0 Basophils % 0.2 Eosinophils # 0.0 Eosinophils % 1.0 Hematocrit 23.1 L Hemoglobin 7.7 L Lymphocytes # 0.2 L Lymphocytes % 4.4 L Mean Corpuscular Hemoglobin 28.6 L Mean Corpuscular Hemoglobin Concent 33.3 Mean Corpuscular Volume 85.9 Mean Platelet Volume 10.6 H Monocytes # 0.4 Monocytes % 9.8 Neutrophils # 3.4 Neutrophils % 83.9 H Nucleated Red Blood Cells # 0.0 Nucleated Red Blood Cells % 0.0 Platelet Count 38 #L Red Blood Count 2.69 L Red Cell Distribution Width 17.5 H White Blood Count 4.1 L Medications Medications Current Medications Acetaminophen (Tylenol Liquid) 640 mg Q6H PRN GTB PAIN OR TEMP ABOVE 38C Last administered on 10/07/16 17:51; Admin Dose 640 MG; Start 09/06/16 at 22:30 Allopurinol (Zyloprim) 200 mg DAILY GTB Last administered on 10/09/16 15:01; Admin Dose 200 MG; Start 09/07/16 at 09:00 Ascorbic Acid (Vitamin C) 500 mg BID GTB Last administered on 10/11/16 20:50; Admin Dose 500 MG; Start 09/07/16 at 09:00 Calcitriol (Rocaltrol) 0.25 mcg DAILY GTB Last administered on 10/09/16 15:01 ; Admin Dose 0.25 MCG; Start 09/07/16 at 09:00 Chlorhexidine Gluconate (Peridex) 15 ml BID MM Last administered on 10/11/16 20:50; Admin Dose 15 ML; Start 09/07/16 at 09:00 Metoclopramide HCl (Reglan) 5 mg Q8H PRN GTB NAUSEA AND/OR VOMITING; Start 09/06 at 22:30 Sucralfate (Carafate Susp) 1 gm BID GTB Last administered on 10/11/16 20:50; Admin Dose 1 GM; Start 09/07/16 at 09:00 Ondansetron HCl (Zofran Inj) 4 mg Q6H PRN IV NAUSEA AND/OR VOMITING Last administered on 09/17/16 00:52; Admin Dose 4 MG; Start 09/06/16 at 22:30 Morphine Sulfate (morphine) 2 mg Q4H PRN IV PAIN LEVEL 7-10 Last administered on 09/16/16 20:19; Admin Dose 2 MG; Start 09/06/16 at 22:30 Metoclopramide HCl (Reglan) 5 mg Q6H PRN IV RESIDUALS > 100; Start 09/10/16 at 19:00 Clonidine (Catapres) 0.1 mg Q6H PRN GTB ELEVATED SYSTOLIC BP Last administered on 09/15/16 07:04; Admin Dose 0.1 MG; Start 09/13/16 at 23:00 Hydralazine HCl (Apresoline) 10 mg Q6H PRN IV ELEVATED SYSTOLIC BP Last administered on 09/15/16 02:08; Admin Dose 10 MG; Start 09/15/16 at 01:50 Collagenase (Santyl) 1 applic DAILY TOP Last administered on 10/11/16 09:05; Admin Dose 1 APPLIC; Start 09/18/16 at 09:00 Glycopyrrolate (Robinul) 1 mg Q8 GTB Last administered on 10/11/16 22:30; Admin Dose 1 MG; Start 09/19/16 at 09:30 Amikacin Sulfate (Amikacin Iv Per Pharmacy) AMIKACIN PER PHARMACY NOTE XX ; Start 09/24/16 at 14:00 Miscellaneous Information 1 ea NOTE XX ; Start 09/28/16 at 09:00 Glucose (Glutose) 15 gm Q15M PRN PO DECREASED GLUCOSE; Start 09/28/16 at 09:00 Glucose (Glutose) 22.5 gm Q15M PRN PO DECREASED GLUCOSE; Start 09/28/16 at 09:00 Dextrose (D50w Syringe) 25 ml Q15M PRN IV DECREASED GLUCOSE Last administered on 09/29/16 18:18; Admin Dose 25 ML; Start 09/28/16 at 09:00 Dextrose (D50w Syringe) 50 ml Q15M PRN IV DECREASED GLUCOSE; Start 09/28/16 at 09:00 Glucagon (Glucagen) 1 mg Q15M PRN IM DECREASED GLUCOSE; Start 09/28/16 at 09:00 Glucose (Glutose) 15 gm Q15M PRN BUCCAL DECREASED GLUCOSE; Start 09/28/16 at 09: 00 Insulin Aspart (Novolog Insulin Pen) NOVOLOG *MILD* ALGORI... Q6 SC Last administered on 10/11/16 12:27; Admin Dose 1 UNIT; Start 09/29/16 at 00:00 IV Flush (NS 10 ml) 10 ml PRN PRN IV FLUSH LINE; Start 09/29/16 at 20:30 Epoetin Jeffry 6000 units 6,000 units MoWeFr@17 SC Last administered on 17:24; Admin Dose 6,000 UNITS; Start 10/01/16 at 17:00 Sodium Chloride 1,000 ml @ 50 mls/hr Q20H IV Last administered on 10/11/16 14 :30; Admin Dose 50 MLS/HR; Start 10/09/16 at 00:00 Vancomycin HCl 1.25 gm/Sodium Chloride 250 ml @ 83.333 mls/ hr Q96H IVPB Last administered on 10/09/16 21:49; Admin Dose 83.333 MLS/HR; Start 10/09/16 at 17: 00 Pantoprazole 80 mg/Sodium Chloride 100 ml @ 10 mls/hr Q10H IV Last administered on 10/11/16 22:32; Admin Dose 10 MLS/HR; Start 10/09/16 at 19:00 Norepinephrine 16 mg/Dextrose 500 ml @ 0 mls/hr TITRATE IV Last administered on 10/11/16 20:53; Admin Dose 18.75 MLS/HR; Start 10/10/16 at 08:30 Levetiracetam 500 mg/Sodium Chloride 105 ml @ 420 mls/hr Q12 IVPB Last administered on 10/11/16t 20:51; Admin Dose 420 MLS/HR; Start 10/10/16 at 21:00 Meropenem (Merrem 500 Mg/ 100 ml (Pmx)) 100 ml @ 200 mls/hr Q24H IVPB ; Start 10/12/16 at 21:00 TONORMA MD Oct 12, 2016 08:29
[2016-10-12] MEDS: SOD CHLORIDE 0.9% 1,000 ML IV SCH (09:18)
[2016-10-12] MEDS: ASCORBIC ACID 500 MG TAB GTB SCH ×2 (09:18→21:00)
[2016-10-12] MEDS: PANTOPRAZOLE IV 80 MG in SOD CHLORIDE 0.9% 100 ML IV SCH ×3 (09:18→21:41)
[2016-10-12] MEDS: LEVETIRACETAM IV 500 MG in SOD CHLORIDE 0.9% 100 ML IVPB SCH ×2 (09:18→21:41)
[2016-10-12] MEDS: CHLORHEXIDINE GLUCONATE 15 ML UD CUP MM SCH ×2 (09:19→21:51)
[2016-10-12] MEDS: ALLOPURINOL 100 MG TAB GTB SCH (09:19)
[2016-10-12] MEDS: SUCRALFATE (100 MG/ML) 10ML CUP GTB SCH ×2 (09:19→21:00)
[2016-10-12] MEDS: CALCITRIOL 0.25 MCG CAP GTB SCH (09:20)
[2016-10-12] MEDS: COLLAGENASE 30 GM TUBE TOP SCH (09:20)
--- NOTE | 2016-10-12 09:46 | PN ---
DATE: The patient in the intensive care unit, a 56-year-old gentleman. He is in intensive care unit becau se of hypotension. He has had significant upper GI bleeding, status post tracheostomy, hemoglobin i s around 7.7, platelet count is around 38,000. PHYSICAL EXAMINATION: GENERAL: The patient is unresponsive. VITAL SIGNS: Blood pressure is around 110/70 on Levophed. Pulse is 94. CARDIOVASCULAR: Normal heart sounds. RESPIRATORY: Normal breath sounds. ABDOMEN: Shows soft abdomen with no palpable masses. IMPRESSION: 1. Hypotension. 2. Upper GI bleeding. 3. Respiratory failure. PLAN: Continue Protonix IV drip and recommend EGD when the patient is stable. We will follow the patient closely. Dictated By: GEORGE DOS SANTOS MD NC/NIKOLAI Conf#: [id number] DID#: [id number] CC: TAI PERRIN MD;*EndCC*
--- NOTE | 2016-10-12 11:03 | PN ---
DATE: 10/12/2016 SUBJECTIVE: The patient's general condition is the same. He is noncognitive, no eye opening, does n ot follow. He is on continuous ventilator support through a tracheostomy. He is in the ICU for jose se monitoring. His blood pressure is being maintained with Levophed at mg dosage. PHYSICAL EXAMINATION: VITAL SIGNS: Show temperature 98.5, blood pressure 120/60, pulse rate of 99, respiratory rate of 18 , pulse oximetry showing 100% saturation with 40% inhaled oxygen concentration. NECK: Tracheal secretions are clear. No bleeding is seen. HEART: Regular rhythm. CHEST: Lung chad[place] are mostly clear, except diminished breath sounds in the lower lung chadwick. ABDOMEN: Soft. G-tube feeding is on hold, however. No distention is seen. EXTREMITIES: Show generalized edema. LABORATORY TESTS: Show a WBC of 4100, hemoglobin 7.7, hematocrit 23.1, platelets decreased to 38,00 0. He is scheduled to have 2 units of packed cells and a platelet transfusion today during dialysis . The blood culture results show carbapenem-resistant Klebsiella pneumoniae. IMPRESSION: 1. Septic shock secondary to gram-negative sepsis from carbapenem resistant Klebsiella pneumoniae. 2. Chronic respiratory failure, ventilator dependent. 3. History of seizure disorder. 4. Chronic encephalopathy. 5. Acute renal failure, on dialysis. 6. Pancytopenia. 7. History of developmental delay. 8. Rule out gastrointestinal bleed. PLAN: 1. Continue long-term ventilator support. 2. Continue pressor drugs to stabilize the blood pressure. 3. Continue antibiotics, as per the ID security system sales consultant. 4. Continue dialysis, per the gaming table operator. 5. Continue bronchodilator inhalation therapy. In spite of all these aggressive interventions, the patient's condition continues to deteriorate and is not showing any significant improvement. This needs to be discussed with the patient's members about the futility of care and intensity of treatment. Dictated By: VEENA STREETER MD SR/NIKOLAI Conf#: [id number] DID#: [id number]
--- NOTE | 2016-10-12 13:43 | QN ---
Documentation Comment Biomedical ethics committee consultation note; Biomedical ethics committee met today to discuss the case of Mr. Wang amongst the committee members and with the patient's sister by telephone conference. The primary attending physician Dr. Jose Ramon Mcelroy elucidated the case extensively. Mr. Wang has progressed to the point that despite heroic aggressive medical intervention he is now deemed to be futile medical care and further medical care would be inappropriate. This is in the setting of hemodialysis; sepsis; and the patient's underlying medical status as well as the other medical issues well defined in the primary care physicians and consultants regular notes. Due to the above list of the opinion in position of the biomedical ethics committee to be in support and concurrence with the primary care team. That further intervention is medically inappropriate ineffective futile and not in this patient's best interest and furthermore this is actually causing the patient a decrease in quality of life. Given the above the patient will be placed back on DNR status as he had been at another facility. Further we will curtail ongoing new dialysis episodes effective October 15, 2016. This last point is done at the request of the sister so that she may have time to try and make arrangements to come and visit him. She understands that we will be pursuing this with the intention of allowing her time to come in but will not postpone or delay this timeframe. If she does need some degree of assistance from professor of social work staff has been offered to her although as of this moment she has not taken that. Therefore in summary this patient will now go on to full DNR status; and hemodialysis and other aggressive interventions will come to an and as of October 15, 2016. Respectfully yours William Fuentes MD Probation Counselor biomedical ethics WILLIAM FUENTES MD Oct 12, 2016 13:42
--- NOTE | 2016-10-12 14:09 | CONS ---
Date/Time of Note Date/Time of Note DATE: 10/12/16 TIME: 14:06 Assessment/Plan Assessment/Plan Chief Complaint/Hosp Course SUBJECTIVE: Patient remains obtunded on pressors with persistent cough that grew out secretions from NG tube, with increased anasarca. MICROBIOLOGY: Repeat blood culture growing MDR gram-negative rods. ANTIMICROBIALS: 1. Merrem. 2. Vancomycin. 3. Amikacin. INDWELLINGS: Trach, PEG, left upper extremity PICC line, right chest Perm-A- Cath. PHYSICAL EXAMINATION: GENERAL: Chronically ill-appearing, elderly man who is lying comfortably in bed. Patient is nonverbal, noncommunicative. HEENT: Head atraumatic, normocephalic. Sclerae anicteric. Buccal mucosa dry. NECK: Obese. CHEST: Rise symmetrical. Breath sounds diminished. HEART: S1, S2. ABDOMEN: Distended. Bowel tones hypoactive. Extremities contractured. Skin with severe anasarca and multiple unstageable decubitus with foul odor. ASSESSMENT: 1. Severe sepsis with shock and multisystem organ failure. 2. Persistent Gram-negative julita bacteremia. 3. Multiple chronic wounds with possible osteomyelitis. 4. Anemia with progressive thrombocytopenia. 5. Acute on chronic kidney disease, hemodialysis dependent. 6. Chronic encephalopathy. 7. Chronic respiratory failure. PLAN: The patient remains hemodynamically unstable, overall doing poorly and now DNR status. Will change Amikacin to Colistin, continue abx, possible comfort care focus on Saturday DW staff Problems: Consultation Date/Type/Reason Admit Date/Time Sep 06, 2016 at 22:27 Initial Consult Date 09/07/16 Type of Consultation: id Referring Provider: FREDDY COELLO MD Exam/Review of Systems Vital Signs Vitals Vital Signs Date Time Temp Pulse Resp B/P Pulse Ox O2 Delivery O2 Flow Rate FiO2 10/12/16 12:50 87 18 10/12/16 11:00 100 35 10/12/16 10:00 121/60 Mechanical Ventilator 10/12/16 08:00 98.5 Intake and Output 10/11/16 10/11/16 10/12/16 15:00 23:00 07:00 Intake Total 1006.25 ml 582.65 ml 525 ml Output Total 200 ml 0 ml Balance 806.25 ml 582.65 ml 525 ml Results Result Diagram: 10/12/16 0340 10/11/16 0440 Results 24 hrs Laboratory Tests Test 10/11/16 18:12 10/12/16 03:40 10/12/16 12:07 Bedside Glucose 93 96 Basophils # 0.0 Basophils % 0.2 Eosinophils # 0.0 Eosinophils % 1.0 Hematocrit 23.1 L Hemoglobin 7.7 L Lymphocytes # 0.2 L Lymphocytes % 4.4 L Mean Corpuscular Hemoglobin 28.6 L Mean Corpuscular Hemoglobin Concent 33.3 Mean Corpuscular Volume 85.9 Mean Platelet Volume 10.6 H Monocytes # 0.4 Monocytes % 9.8 Neutrophils # 3.4 Neutrophils % 83.9 H Nucleated Red Blood Cells # 0.0 Nucleated Red Blood Cells % 0.0 Platelet Count 38 #L Red Blood Count 2.69 L Red Cell Distribution Width 17.5 H White Blood Count 4.1 L Medications Medications Current Medications Acetaminophen (Tylenol Liquid) 640 mg Q6H PRN GTB PAIN OR TEMP ABOVE 38C Last administered on 10/07/16 17:51; Admin Dose 640 MG; Start 09/06/16 at 22:30 Allopurinol (Zyloprim) 200 mg DAILY GTB Last administered on 10/12/16 09:19; Admin Dose 200 MG; Start 09/07/16 at 09:00 Ascorbic Acid (Vitamin C) 500 mg BID GTB Last administered on 10/12/16 09:18; Admin Dose 500 MG; Start 09/07/16 at 09:00 Calcitriol (Rocaltrol) 0.25 mcg DAILY GTB Last administered on 10/12/16 09:20 ; Admin Dose 0.25 MCG; Start 09/07/16 at 09:00 Chlorhexidine Gluconate (Peridex) 15 ml BID MM Last administered on 10/12/16 09:19; Admin Dose 15 ML; Start 09/07/16 at 09:00 Metoclopramide HCl (Reglan) 5 mg Q8H PRN GTB NAUSEA AND/OR VOMITING; Start 09/06 at 22:30 Sucralfate (Carafate Susp) 1 gm BID GTB Last administered on 10/12/16 09:19; Admin Dose 1 GM; Start 09/07/16 at 09:00 Ondansetron HCl (Zofran Inj) 4 mg Q6H PRN IV NAUSEA AND/OR VOMITING Last administered on 09/17/16 00:52; Admin Dose 4 MG; Start 09/06/16 at 22:30 Morphine Sulfate (morphine) 2 mg Q4H PRN IV PAIN LEVEL 7-10 Last administered on 09/16/16 20:19; Admin Dose 2 MG; Start 09/06/16 at 22:30 Metoclopramide HCl (Reglan) 5 mg Q6H PRN IV RESIDUALS > 100; Start 09/10/16 at 19:00 Clonidine (Catapres) 0.1 mg Q6H PRN GTB ELEVATED SYSTOLIC BP Last administered on 09/15/16 07:04; Admin Dose 0.1 MG; Start 09/13/16 at 23:00 Hydralazine HCl (Apresoline) 10 mg Q6H PRN IV ELEVATED SYSTOLIC BP Last administered on 09/15/16 02:08; Admin Dose 10 MG; Start 09/15/16 at 01:50 Collagenase (Santyl) 1 applic DAILY TOP Last administered on 10/12/16 09:20; Admin Dose 1 APPLIC; Start 09/18/16 at 09:00 Glycopyrrolate (Robinul) 1 mg Q8 GTB Last administered on 10/11/16 22:30; Admin Dose 1 MG; Start 09/19/16 at 09:30 Amikacin Sulfate (Amikacin Iv Per Pharmacy) AMIKACIN PER PHARMACY NOTE XX ; Start 09/24/16 at 14:00 Miscellaneous Information 1 ea NOTE XX ; Start 09/28/16 at 09:00 Glucose (Glutose) 15 gm Q15M PRN PO DECREASED GLUCOSE; Start 09/28/16 at 09:00 Glucose (Glutose) 22.5 gm Q15M PRN PO DECREASED GLUCOSE; Start 09/28/16 at 09:00 Dextrose (D50w Syringe) 25 ml Q15M PRN IV DECREASED GLUCOSE Last administered on 09/29/16 18:18; Admin Dose 25 ML; Start 09/28/16 at 09:00 Dextrose (D50w Syringe) 50 ml Q15M PRN IV DECREASED GLUCOSE; Start 09/28/16 at 09:00 Glucagon (Glucagen) 1 mg Q15M PRN IM DECREASED GLUCOSE; Start 09/28/16 at 09:00 Glucose (Glutose) 15 gm Q15M PRN BUCCAL DECREASED GLUCOSE; Start 09/28/16 at 09: 00 Insulin Aspart (Novolog Insulin Pen) NOVOLOG *MILD* ALGORI... Q6 SC Last administered on 10/11/16 12:27; Admin Dose 1 UNIT; Start 09/29/16 at 00:00 IV Flush (NS 10 ml) 10 ml PRN PRN IV FLUSH LINE; Start 09/29/16 at 20:30 Epoetin Jeffry 6000 units 6,000 units [id number]@17 SC Last administered on 17:24; Admin Dose 6,000 UNITS; Start 10/01/16 at 17:00 Sodium Chloride 1,000 ml @ 50 mls/hr Q20H IV Last administered on 10/12/16 09 :18; Admin Dose 50 MLS/HR; Start 10/09/16 at 00:00 Vancomycin HCl 1.25 gm/Sodium Chloride 250 ml @ 83.333 mls/ hr Q96H IVPB Last administered on 10/09/16 21:49; Admin Dose 83.333 MLS/HR; Start 10/09/16 at 17: 00 Pantoprazole 80 mg/Sodium Chloride 100 ml @ 10 mls/hr Q10H IV Last administered on 10/12/16 09:18; Admin Dose 10 MLS/HR; Start 10/09/16 at 19:00 Norepinephrine 16 mg/Dextrose 500 ml @ 0 mls/hr TITRATE IV Last administered on 10/11/16 20:53; Admin Dose 18.75 MLS/HR; Start 10/10/16 at 08:30 Levetiracetam 500 mg/Sodium Chloride 105 ml @ 420 mls/hr Q12 IVPB Last administered on 10/12/16 09:18; Admin Dose 420 MLS/HR; Start 10/10/16 at 21:00 Meropenem (Merrem 500 Mg/ 100 ml (Pmx)) 100 ml @ 200 mls/hr Q24H IVPB ; Start 10/12/16 at 21:00 ARUN DIANA NP Oct 12, 2016 14:09
--- NOTE | 2016-10-12 14:35 | PN ---
Date/Time of Note Date/Time of Note DATE: 10/12/16 TIME: 14:33 Assessment/Plan VTE Prophylaxis VTE Prophylaxis Intervention: SCD's Lines/Catheters IV C[facility]ter Type (from [facility]): PICC Line Central line still needed: Yes Urinary Cath still in place: Yes Reason Cath still needed: urinary retention Assessment/Plan Chief Complaint/Hosp Course ASSESSMENT AND PLAN: - Shock hypovolemic, possibly septic. Continue ICU care, IVF, pressors, blood transfusion. -Severe anemia anemia secondary to GI bleed. Continue Protonix drip. Plan for possible endoscopy when patient is more stable. Continue blood transfusion. - Heparin-induced thrombocytopenia, hold heparin, patient status post platelets transfusion. Dr. Coughlin is following in hematology consultation. - GNR bacteremia, status of the PICC line exchange. - Severe anemia 2 GI bleed. Continue to monitor hemoglobin and hematocrit. Dr. Singh is following in gastroenterology consultation. - Acute kidney failure on chronic kidney disease. Continue to monitor BUN and creatinine. Dr. Mk Purdy is following in nephrology consultation. Patient with worsening renal function. Started on Hemodialysis during this admission. - Pancytopenia 2 chronic inflammation and sepsis. - Ventilator-dependent respiratory failure. Dr. Aragon is following in pulmonology consultation. Continue ventilator support, bronchodilators. - HCAP on admission. Status post treatment. - Dysphagia with PEG. - History of seizure disorder. Continue patient on Keppra. - Diastolic dysfunction congestive heart failure with preserved ejection fraction of 60%. - S/p sepsis on admission. Dr. Guy is following patient in infectious disease consultation. - Status post cerebrovascular accident, status post craniotomy. - Mental retardation. - DNR status Continue Protonix for peptic ulcer disease prophylaxis. Further recommendations based on clinical course. Plan of care discussed with Dr. Mcelroy. Problems: Subjective 24 Hr Interval Summary Free Text/Dictation Patient continues on Levophed, s/p HD. Exam/Review of Systems Vital Signs Vitals Vital Signs Date Time Temp Pulse Resp B/P Pulse Ox O2 Delivery O2 Flow Rate FiO2 10/12/16 12:50 87 18 10/12/16 11:00 100 35 10/12/16 10:00 121/60 Mechanical Ventilator 10/12/16 08:00 98.5 Intake and Output 10/11/16 10/11/16 10/12/16 15:00 23:00 07:00 Intake Total 1006.25 ml 582.65 ml 525 ml Output Total 200 ml 0 ml Balance 806.25 ml 582.65 ml 525 ml Exam Constitutional: alert, well developed Head: atraumatic, normocephalic Eyes: nl conjunctiva ENMT: nl external ears & nose Neck: jvd, supple Respiratory: clear to auscultation Cardiovascular: regular rate and rhythm Gastrointestinal: nl liver, spleen, soft Genitourinary - Male: nl penis, other ( Brar catheter ) Musculoskeletal: nl extremities to inspection, Extremities: normal pulses, bilateral LE s/p vascular intervention Results Result Diagram: 10/12/16 0340 10/11/16 0440 Results 24 hrs Laboratory Tests Test 10/11/16 18:12 10/12/16 03:40 10/12/16 12:07 Bedside Glucose 93 96 Basophils # 0.0 Basophils % 0.2 Eosinophils # 0.0 Eosinophils % 1.0 Hematocrit 23.1 L Hemoglobin 7.7 L Lymphocytes # 0.2 L Lymphocytes % 4.4 L Mean Corpuscular Hemoglobin 28.6 L Mean Corpuscular Hemoglobin Concent 33.3 Mean Corpuscular Volume 85.9 Mean Platelet Volume 10.6 H Monocytes # 0.4 Monocytes % 9.8 Neutrophils # 3.4 Neutrophils % 83.9 H Nucleated Red Blood Cells # 0.0 Nucleated Red Blood Cells % 0.0 Platelet Count 38 #L Red Blood Count 2.69 L Red Cell Distribution Width 17.5 H White Blood Count 4.1 L Medications Medications Current Medications Acetaminophen (Tylenol Liquid) 640 mg Q6H PRN GTB PAIN OR TEMP ABOVE 38C Last administered on 10/07/16 17:51; Admin Dose 640 MG; Start 09/06/16 at 22:30 Allopurinol (Zyloprim) 200 mg DAILY GTB Last administered on 10/12/16 09:19; Admin Dose 200 MG; Start 09/07/16 at 09:00 Ascorbic Acid (Vitamin C) 500 mg BID GTB Last administered on 10/12/16 09:18; Admin Dose 500 MG; Start 09/07/16 at 09:00 Calcitriol (Rocaltrol) 0.25 mcg DAILY GTB Last administered on 10/12/16 09:20 ; Admin Dose 0.25 MCG; Start 09/07/16 at 09:00 Chlorhexidine Gluconate (Peridex) 15 ml BID MM Last administered on 10/12/16 09:19; Admin Dose 15 ML; Start 09/07/16 at 09:00 Metoclopramide HCl (Reglan) 5 mg Q8H PRN GTB NAUSEA AND/OR VOMITING; Start 09/06 at 22:30 Sucralfate (Carafate Susp) 1 gm BID GTB Last administered on 10/12/16 09:19; Admin Dose 1 GM; Start 09/07/16 at 09:00 Ondansetron HCl (Zofran Inj) 4 mg Q6H PRN IV NAUSEA AND/OR VOMITING Last administered on 09/17/16 00:52; Admin Dose 4 MG; Start 09/06/16 at 22:30 Morphine Sulfate (morphine) 2 mg Q4H PRN IV PAIN LEVEL 7-10 Last administered on 09/16/16 20:19; Admin Dose 2 MG; Start 09/06/16 at 22:30 Metoclopramide HCl (Reglan) 5 mg Q6H PRN IV RESIDUALS > 100; Start 09/10/16 at 19:00 Clonidine (Catapres) 0.1 mg Q6H PRN GTB ELEVATED SYSTOLIC BP Last administered on 09/15/16 07:04; Admin Dose 0.1 MG; Start 09/13/16 at 23:00 Hydralazine HCl (Apresoline) 10 mg Q6H PRN IV ELEVATED SYSTOLIC BP Last administered on 09/15/16 02:08; Admin Dose 10 MG; Start 09/15/16 at 01:50 Collagenase (Santyl) 1 applic DAILY TOP Last administered on 10/12/16 09:20; Admin Dose 1 APPLIC; Start 09/18/16 at 09:00 Glycopyrrolate (Robinul) 1 mg Q8 GTB Last administered on 10/12/16 14:28; Admin Dose 1 MG; Start 09/19/16 at 09:30 Amikacin Sulfate (Amikacin Iv Per Pharmacy) AMIKACIN PER PHARMACY NOTE XX ; Start 09/24/16 at 14:00 Miscellaneous Information 1 ea NOTE XX ; Start 09/28/16 at 09:00 Glucose (Glutose) 15 gm Q15M PRN PO DECREASED GLUCOSE; Start 09/28/16 at 09:00 Glucose (Glutose) 22.5 gm Q15M PRN PO DECREASED GLUCOSE; Start 09/28/16 at 09:00 Dextrose (D50w Syringe) 25 ml Q15M PRN IV DECREASED GLUCOSE Last administered on 09/29/16 18:18; Admin Dose 25 ML; Start 09/28/16 at 09:00 Dextrose (D50w Syringe) 50 ml Q15M PRN IV DECREASED GLUCOSE; Start 09/28/16 at 09:00 Glucagon (Glucagen) 1 mg Q15M PRN IM DECREASED GLUCOSE; Start 09/28/16 at 09:00 Glucose (Glutose) 15 gm Q15M PRN BUCCAL DECREASED GLUCOSE; Start 09/28/16 at 09: 00 Insulin Aspart (Novolog Insulin Pen) NOVOLOG *MILD* ALGORI... Q6 SC Last administered on 10/11/16 12:27; Admin Dose 1 UNIT; Start 09/29/16 at 00:00 IV Flush (NS 10 ml) 10 ml PRN PRN IV FLUSH LINE; Start 09/29/16 at 20:30 Epoetin Jeffry 6000 units 6,000 units [email or web address]@[email or web address] SC Last administered on 17:24; Admin Dose 6,000 UNITS; Start 10/01/16 at 17:00 Sodium Chloride 1,000 ml @ 50 mls/hr Q20H IV Last administered on 10/12/16 09 :18; Admin Dose 50 MLS/HR; Start 10/09/16 at 00:00 Vancomycin HCl 1.25 gm/Sodium Chloride 250 ml @ 83.333 mls/ hr Q96H IVPB Last administered on 10/09/16 21:49; Admin Dose 83.333 MLS/HR; Start 10/09/16 at 17: 00 Pantoprazole 80 mg/Sodium Chloride 100 ml @ 10 mls/hr Q10H IV Last administered on 10/12/16 09:18; Admin Dose 10 MLS/HR; Start 10/09/16 at 19:00 Norepinephrine 16 mg/Dextrose 500 ml @ 0 mls/hr TITRATE IV Last administered on 10/11/16 20:53; Admin Dose 18.75 MLS/HR; Start 10/10/16 at 08:30 Levetiracetam 500 mg/Sodium Chloride 105 ml @ 420 mls/hr Q12 IVPB Last administered on 10/12/16t 09:18; Admin Dose 420 MLS/HR; Start 10/10/16 at 21:00 Meropenem (Merrem 500 Mg/ 100 ml (Pmx)) 100 ml @ 200 mls/hr Q24H IVPB ; Start 10/12/16 at 21:00 QUIN ORTIZ Oct 12, 2016 14:35
--- NOTE | 2016-10-12 16:26 | CONS ---
Date/Time of Note Date/Time of Note DATE: 10/12/16 TIME: 16:25 Assessment/Plan Assessment/Plan Additional Assessment/Plan 1. Acute kidney injury on possible chronic kidney disease unknown stage secondary to severe prerenal azotemia causing ischemic acute tubular necrosis in the setting of severe anemia.- continue to have Anuria with uremic symptoms and GI bleeding- started on HD during this admission 2. Severe anemia,s/p PRBC 3. Chronic respiratory failure, status post tracheostomy, on vent. 4. Pancytopenia. 5. History of a seizure disorder. 6. thrombocytopenia 7. Hypotension due to bleeding/sepsis PLAN: Plan for HD today- BP labile will continue HD on [facility] [employer] meeting today will follow up Consultation Date/Type/Reason Admit Date/Time Sep 06, 2016 at 22:27 Initial Consult Date Aug Type of Consultation: NEPHROLOGY Reason for Consultation ESRD on HD Referring Provider: FREDDY COELLO MD 24 HR Interval Summary Free Text/Dictation SBP In 100s, BP stable today, plan for HD today Exam/Review of Systems Vital Signs Vitals Vital Signs Date Time Temp Pulse Resp B/P Pulse Ox O2 Delivery O2 Flow Rate FiO2 10/12/16 15:00 105 19 99 35 10/12/16 14:15 123/60 10/12/16 14:00 Mechanical Ventilator 10/12/16 12:00 98.0 Intake and Output 10/11/16 10/11/16 10/12/16 15:00 23:00 07:00 Intake Total 1006.25 ml 582.65 ml 525 ml Output Total 200 ml 0 ml Balance 806.25 ml 582.65 ml 525 ml Exam GENERAL: chronically ill-appearing, middle-aged man who is lying comfortably in bed. HEENT: Head atraumatic, normocephalic. Sclerae anicteric. Buccal mucosa dry. NECK: Supple. Tracheostomy present. CHEST: Rise symmetrical. Breath sounds diminished. HEART: S1, S2. ABDOMEN: Soft, bowel tones present. EXTREMITIES: Without cyanosis. Contractured. + permacath Right IJ Results Result Diagram: 10/12/16 0340 10/11/16 0440 Results 24 hrs Laboratory Tests Test 10/11/16 18:12 10/12/16 03:40 10/12/16 12:07 Bedside Glucose 93 96 Basophils # 0.0 Basophils % 0.2 Eosinophils # 0.0 Eosinophils % 1.0 Hematocrit 23.1 L Hemoglobin 7.7 L Lymphocytes # 0.2 L Lymphocytes % 4.4 L Mean Corpuscular Hemoglobin 28.6 L Mean Corpuscular Hemoglobin Concent 33.3 Mean Corpuscular Volume 85.9 Mean Platelet Volume 10.6 H Monocytes # 0.4 Monocytes % 9.8 Neutrophils # 3.4 Neutrophils % 83.9 H Nucleated Red Blood Cells # 0.0 Nucleated Red Blood Cells % 0.0 Platelet Count 38 #L Red Blood Count 2.69 L Red Cell Distribution Width 17.5 H White Blood Count 4.1 L Medications Medications Current Medications Acetaminophen (Tylenol Liquid) 640 mg Q6H PRN GTB PAIN OR TEMP ABOVE 38C Last administered on 10/07/16 17:51; Admin Dose 640 MG; Start 09/06/16 at 22:30 Allopurinol (Zyloprim) 200 mg DAILY GTB Last administered on 10/12/16 09:19; Admin Dose 200 MG; Start 09/07/16 at 09:00 Ascorbic Acid (Vitamin C) 500 mg BID GTB Last administered on 10/12/16 09:18; Admin Dose 500 MG; Start 09/07/16 at 09:00 Calcitriol (Rocaltrol) 0.25 mcg DAILY GTB Last administered on 10/12/16 09:20 ; Admin Dose 0.25 MCG; Start 09/07/16 at 09:00 Chlorhexidine Gluconate (Peridex) 15 ml BID MM Last administered on 10/12/16 09:19; Admin Dose 15 ML; Start 09/07/16 at 09:00 Metoclopramide HCl (Reglan) 5 mg Q8H PRN GTB NAUSEA AND/OR VOMITING; Start 09/06 at 22:30 Sucralfate (Carafate Susp) 1 gm BID GTB Last administered on 10/12/16 09:19; Admin Dose 1 GM; Start 09/07/16 at 09:00 Ondansetron HCl (Zofran Inj) 4 mg Q6H PRN IV NAUSEA AND/OR VOMITING Last administered on 09/17/16 00:52; Admin Dose 4 MG; Start 09/06/16 at 22:30 Morphine Sulfate (morphine) 2 mg Q4H PRN IV PAIN LEVEL 7-10 Last administered on 09/16/16 20:19; Admin Dose 2 MG; Start 09/06/16 at 22:30 Metoclopramide HCl (Reglan) 5 mg Q6H PRN IV RESIDUALS > 100; Start 09/10/16 at 19:00 Clonidine (Catapres) 0.1 mg Q6H PRN GTB ELEVATED SYSTOLIC BP Last administered on 09/15/16 07:04; Admin Dose 0.1 MG; Start 09/13/16 at 23:00 Hydralazine HCl (Apresoline) 10 mg Q6H PRN IV ELEVATED SYSTOLIC BP Last administered on 09/15/16 02:08; Admin Dose 10 MG; Start 09/15/16 at 01:50 Collagenase (Santyl) 1 applic DAILY TOP Last administered on 10/12/16 09:20; Admin Dose 1 APPLIC; Start 09/18/16 at 09:00 Glycopyrrolate (Robinul) 1 mg Q8 GTB Last administered on 10/12/16 14:28; Admin Dose 1 MG; Start 09/19/16 at 09:30 Amikacin Sulfate (Amikacin Iv Per Pharmacy) AMIKACIN PER PHARMACY NOTE XX ; Start 09/24/16 at 14:00 Miscellaneous Information 1 ea NOTE XX ; Start 09/28/16 at 09:00 Glucose (Glutose) 15 gm Q15M PRN PO DECREASED GLUCOSE; Start 09/28/16 at 09:00 Glucose (Glutose) 22.5 gm Q15M PRN PO DECREASED GLUCOSE; Start 09/28/16 at 09:00 Dextrose (D50w Syringe) 25 ml Q15M PRN IV DECREASED GLUCOSE Last administered on 09/29/16 18:18; Admin Dose 25 ML; Start 09/28/16 at 09:00 Dextrose (D50w Syringe) 50 ml Q15M PRN IV DECREASED GLUCOSE; Start 09/28/16 at 09:00 Glucagon (Glucagen) 1 mg Q15M PRN IM DECREASED GLUCOSE; Start 09/28/16 at 09:00 Glucose (Glutose) 15 gm Q15M PRN BUCCAL DECREASED GLUCOSE; Start 09/28/16 at 09: 00 Insulin Aspart (Novolog Insulin Pen) NOVOLOG *MILD* ALGORI... Q6 SC Last administered on 10/11/16 12:27; Admin Dose 1 UNIT; Start 09/29/16 at 00:00 IV Flush (NS 10 ml) 10 ml PRN PRN IV FLUSH LINE; Start 09/29/16 at 20:30 Epoetin Jeffry 6000 units 6,000 units [email or web address]@[email or web address] SC Last administered on 17:24; Admin Dose 6,000 UNITS; Start 10/01/16 at 17:00 Sodium Chloride 1,000 ml @ 50 mls/hr Q20H IV Last administered on 10/12/16 09 :18; Admin Dose 50 MLS/HR; Start 10/09/16 at 00:00 Vancomycin HCl 1.25 gm/Sodium Chloride 250 ml @ 83.333 mls/ hr Q96H IVPB Last administered on 10/09/16 21:49; Admin Dose 83.333 MLS/HR; Start 10/09/16 at 17: 00 Pantoprazole 80 mg/Sodium Chloride 100 ml @ 10 mls/hr Q10H IV Last administered on 10/12/16 09:18; Admin Dose 10 MLS/HR; Start 10/09/16 at 19:00 Norepinephrine 16 mg/Dextrose 500 ml @ 0 mls/hr TITRATE IV Last administered on 10/11/16 20:53; Admin Dose 18.75 MLS/HR; Start 10/10/16 at 08:30 Levetiracetam 500 mg/Sodium Chloride 105 ml @ 420 mls/hr Q12 IVPB Last administered on 10/12/16 09:18; Admin Dose 420 MLS/HR; Start 10/10/16 at 21:00 Meropenem (Merrem 500 Mg/ 100 ml (Pmx)) 100 ml @ 200 mls/hr Q24H IVPB ; Start 10/12/16 at 21:00 KENIA TURCIOS MD Oct 12, 2016 16:26
[2016-10-12] MEDS: EPOETIN 3000 UNITS/1 ML INJ (ESRD) SC SCH (18:38)
[2016-10-12] MEDS ORDERED: MEROPENEM 500 MG/100 ML (PMX) 100 ML IVPB SCH (21:00)
[2016-10-12] MEDS: morphine 2 MG INJ IV PRN (21:55)
[2016-10-12] MEDS: DEXTROSE 50% 50 ML SYRINGE IV PRN (23:40)
[2016-10-13] VITALS (83 sets, daily range): BP systolic 94–118; BP diastolic 52–71; PULSE 93–113; RESP 7–24
[2016-10-13] MEDS: DEXTROSE 50% 50 ML SYRINGE IV PRN (00:41)
[2016-10-13] MEDS: DEXTROSE 5%-0.9% NACL 1,000 ML IV SCH (01:04)
[2016-10-13] MEDS: IPRATROPIUM (HFA) 12.9 GM INHALER INH SCH ×4 (01:18→19:15)
[2016-10-13] MEDS: LEVALBUTEROL (HFA) 15 GM INHALER INH SCH ×4 (01:18→19:15)
[2016-10-13] MEDS: GLYCOPYRROLATE 1 MG TAB GTB SCH ×3 (03:49→20:50)
[2016-10-13] MEDS: PANTOPRAZOLE IV 80 MG in SOD CHLORIDE 0.9% 100 ML IV SCH ×2 (04:00→13:11)
[2016-10-13 05:51] LABS: ADD SCAN DIFF NO
[2016-10-13 05:58] LABS: ABNORMAL IP MESSAGE 1; HEMOGLOBIN 9.3 g/dl (14.0-18.0); MEAN CORPUSCULAR HEMOGLOBIN 28.8 pg (29.0-33.0); MEAN CORPUSCULAR HGB CONC 33.2 g/dl (32.0-37.0); MEAN CORPUSCULAR VOLUME 86.7 fl (82.0-101.0); MEAN PLATELET VOLUME 10.5 fl (7.4-10.4); PLATELET COUNT 31 10^3/UL (140-415); RED BLOOD COUNT 3.23 10^6/ul (4.70-6.10); RED CELL DISTRIBUTION WIDTH 17.8 % (11.5-14.5); WHITE BLOOD COUNT 4.3 10^3/ul (4.8-10.8)
[2016-10-13] MEDS: INSULIN ASPART [NOVOLOG] 3 ML PEN SC SCH ×3 (06:00→18:00)
[2016-10-13 06:12] LABS: POTASSIUM 3.6 mmol/L (3.5-5.1)
[2016-10-13 06:14] LABS: CREATININE 1.5 mg/dl (0.61-1.24)
[2016-10-13 06:15] LABS: CALCIUM 7.3 mg/dl (8.4-10.2)
[2016-10-13] MEDS: SEVELAMER CARBONATE 2.4 GM PKT GTB SCH ×3 (07:35→17:18)
[2016-10-13] MEDS: ALLOPURINOL 100 MG TAB GTB SCH (09:00)
[2016-10-13] MEDS: CALCITRIOL 0.25 MCG CAP GTB SCH (09:00)
[2016-10-13] MEDS: CHLORHEXIDINE GLUCONATE 15 ML UD CUP MM SCH ×2 (09:00→20:51)
[2016-10-13] MEDS: ASCORBIC ACID 500 MG TAB GTB SCH ×2 (09:00→20:51)
[2016-10-13] MEDS: LEVETIRACETAM IV 500 MG in SOD CHLORIDE 0.9% 100 ML IVPB SCH ×2 (09:01→20:50)
[2016-10-13] MEDS: COLLAGENASE 30 GM TUBE TOP SCH (09:01)
[2016-10-13] MEDS: SUCRALFATE (100 MG/ML) 10ML CUP GTB SCH ×2 (09:02→20:50)
--- NOTE | 2016-10-13 10:27 | CONS ---
Date/Time of Note Date/Time of Note DATE: 10/13/16 TIME: 10:25 Assessment/Plan Assessment/Plan Additional Assessment/Plan 1. Acute kidney injury on possible chronic kidney disease unknown stage secondary to severe prerenal azotemia causing ischemic acute tubular necrosis in the setting of severe anemia.- continue to have Anuria with uremic symptoms and GI bleeding- started on HD during this admission 2. Severe anemia,s/p PRBC 3. Chronic respiratory failure, status post tracheostomy, on vent. 4. Pancytopenia. 5. History of a seizure disorder. 6. thrombocytopenia 7. Hypotension due to bleeding/sepsis PLAN: s/p HD yesterday 1.5 L removed, BP labile, S/p Bioethics meeting yesterday, DNR , family wants to hold off HD after saturday so we will order next HD on Saturday will follow up Consultation Date/Type/Reason Admit Date/Time Sep 06, 2016 at 22:27 Initial Consult Date Aug Type of Consultation: NEPHROLOGY Referring Provider: FREDDY COELLO MD 24 HR Interval Summary Free Text/Dictation s/p HD yesterday 1.5 L removed, BP labile, S/p Meeting now DNR Exam/Review of Systems Vital Signs Vitals Vital Signs Date Time Temp Pulse Resp B/P Pulse Ox O2 Delivery O2 Flow Rate FiO2 10/13/16 10:00 104 17 105/56 97 Mechanical Ventilator 10/13/16 08:00 40 10/13/16 08:00 98.1 Intake and Output 10/12/16 10/12/16 10/13/16 15:00 23:00 07:00 Intake Total 2762 ml 754.0 ml 552 ml Output Total 4430 ml 15 ml 10 ml Balance -1668 ml 739.0 ml 542 ml Results Result Diagram: 10/13/16 0520 10/13/16 0520 Results 24 hrs Laboratory Tests Test 10/12/16 12:07 10/12/16 17:23 10/12/16 23:36 10/12/16 23:56 Bedside Glucose 96 82 55 L 82 Test 10/13/16 00:37 10/13/16 01:03 10/13/16 01:23 10/13/16 02:06 Bedside Glucose 71 96 82 100 Test 10/13/16 05:20 10/13/16 06:23 Anion Gap 13 Blood Urea Nitrogen 73 H Calcium Level 7.3 L Carbon Dioxide Level 23 Chloride Level 107 Creatinine 1.50 H Eosinophils # Eosinophils % Glucose Level 73 Hematocrit 28.0 #L Hemoglobin 9.3 #L Mean Corpuscular Hemoglobin 28.8 L Mean Corpuscular Hemoglobin Concent 33.2 Mean Corpuscular Volume 86.7 Mean Platelet Volume 10.5 H Neutrophils # Neutrophils % Platelet Count 31 L Potassium Level 3.6 Red Blood Count 3.23 #L Red Cell Distribution Width 17.8 H Sodium Level 139 White Blood Count 4.3 L Bedside Glucose 81 Medications Medications Current Medications Acetaminophen (Tylenol Liquid) 640 mg Q6H PRN GTB PAIN OR TEMP ABOVE 38C Last administered on 10/07/16 17:51; Admin Dose 640 MG; Start 09/06/16 at 22:30 Allopurinol (Zyloprim) 200 mg DAILY GTB Last administered on 10/13/16 09:00; Admin Dose 200 MG; Start 09/07/16 at 09:00 Ascorbic Acid (Vitamin C) 500 mg BID GTB Last administered on 10/13/16 09:00; Admin Dose 500 MG; Start 09/07/16 at 09:00 Calcitriol (Rocaltrol) 0.25 mcg DAILY GTB Last administered on 10/13/16 09:00 ; Admin Dose 0.25 MCG; Start 09/07/16 at 09:00 Chlorhexidine Gluconate (Peridex) 15 ml BID MM Last administered on 10/13/16 09:00; Admin Dose 15 ML; Start 09/07/16 at 09:00 Metoclopramide HCl (Reglan) 5 mg Q8H PRN GTB NAUSEA AND/OR VOMITING; Start 09/06 at 22:30 Sucralfate (Carafate Susp) 1 gm BID GTB Last administered on 10/13/16 09:02; Admin Dose 1 GM; Start 09/07/16 at 09:00 Ondansetron HCl (Zofran Inj) 4 mg Q6H PRN IV NAUSEA AND/OR VOMITING Last administered on 09/17/16 00:52; Admin Dose 4 MG; Start 09/06/16 at 22:30 Morphine Sulfate (morphine) 2 mg Q4H PRN IV PAIN LEVEL 7-10 Last administered on 10/12/16 21:55; Admin Dose 2 MG; Start 09/06/16 at 22:30 Metoclopramide HCl (Reglan) 5 mg Q6H PRN IV RESIDUALS > 100; Start 09/10/16 at 19:00 Clonidine (Catapres) 0.1 mg Q6H PRN GTB ELEVATED SYSTOLIC BP Last administered on 09/15/16 07:04; Admin Dose 0.1 MG; Start 09/13/16 at 23:00 Hydralazine HCl (Apresoline) 10 mg Q6H PRN IV ELEVATED SYSTOLIC BP Last administered on 09/15/16 02:08; Admin Dose 10 MG; Start 09/15/16 at 01:50 Collagenase (Santyl) 1 applic DAILY TOP Last administered on 10/13/16 09:01; Admin Dose 1 APPLIC; Start 09/18/16 at 09:00 Glycopyrrolate (Robinul) 1 mg Q8 GTB Last administered on 10/12/16 14:28; Admin Dose 1 MG; Start 09/19/16 at 09:30 Amikacin Sulfate (Amikacin Iv Per Pharmacy) AMIKACIN PER PHARMACY NOTE XX ; Start 09/24/16 at 14:00 Miscellaneous Information 1 ea NOTE XX ; Start 09/28/16 at 09:00 Glucose (Glutose) 15 gm Q15M PRN PO DECREASED GLUCOSE; Start 09/28/16 at 09:00 Glucose (Glutose) 22.5 gm Q15M PRN PO DECREASED GLUCOSE; Start 09/28/16 at 09:00 Dextrose (D50w Syringe) 25 ml Q15M PRN IV DECREASED GLUCOSE Last administered on 10/13/16 00:41; Admin Dose 25 ML; Start 09/28/16 at 09:00 Dextrose (D50w Syringe) 50 ml Q15M PRN IV DECREASED GLUCOSE; Start 09/28/16 at 09:00 Glucagon (Glucagen) 1 mg Q15M PRN IM DECREASED GLUCOSE; Start 09/28/16 at 09:00 Glucose (Glutose) 15 gm Q15M PRN BUCCAL DECREASED GLUCOSE; Start 09/28/16 at 09: 00 Insulin Aspart (Novolog Insulin Pen) NOVOLOG *MILD* ALGORI... Q6 SC Last administered on 10/11/16 12:27; Admin Dose 1 UNIT; Start 09/29/16 at 00:00 IV Flush (NS 10 ml) 10 ml PRN PRN IV FLUSH LINE; Start 09/29/16 at 20:30 Epoetin Jeffry 6000 units 6,000 units [id number]@[email or web address] SC Last administered on 18:38; Admin Dose 6,000 UNITS; Start 10/01/16 at 17:00 Vancomycin HCl 1.25 gm/Sodium Chloride 250 ml @ 83.333 mls/ hr Q96H IVPB Last administered on 10/09/16 21:49; Admin Dose 83.333 MLS/HR; Start 10/09/16 at 17: 00 Pantoprazole 80 mg/Sodium Chloride 100 ml @ 10 mls/hr Q10H IV Last administered on 10/13/16 04:00; Admin Dose 10 MLS/HR; Start 10/09/16 at 19:00 Norepinephrine 16 mg/Dextrose 500 ml @ 0 mls/hr TITRATE IV Last administered on 10/11/16 20:53; Admin Dose 18.75 MLS/HR; Start 10/10/16 at 08:30 Levetiracetam 500 mg/Sodium Chloride 105 ml @ 420 mls/hr Q12 IVPB Last administered on 10/13/16 09:01; Admin Dose 420 MLS/HR; Start 10/10/16 at 21:00 Meropenem 100 ml @ 200 mls/hr Q24H IVPB Last administered on 10/12/16 21:42; Admin Dose 200 MLS/HR; Start 10/12/16 at 21:00 Dextrose/Sodium Chloride (D5-NS) 1,000 ml @ 50 mls/hr Q20H IV Last administered on 10/13/16 01:04; Admin Dose 50 MLS/HR; Start 10/13/16 at 01:00 KENIA TURCIOS MD Oct 13, 2016 10:27
--- NOTE | 2016-10-13 10:51 | PN ---
Date/Time of Note Date/Time of Note DATE: 10/13/16 TIME: 10:50 Assessment/Plan VTE Prophylaxis VTE Prophylaxis Intervention: other Lines/Catheters [facility] PICC Line Central line still needed: Yes Urinary Cath still in place: Yes Reason Cath still needed: skin wounds contaminated by urine Assessment/Plan Chief Complaint/Hosp Course - Shock hypovolemic, possibly septic. Continue ICU care, IVF, pressors, blood transfusion. - Severe anemia anemia secondary to GI bleed. Continue Protonix drip. Plan for possible endoscopy when patient is more stable. Continue blood transfusion. - Heparin-induced thrombocytopenia, hold heparin, patient status post platelets transfusion. Dr. Coughlin is following in hematology consultation. - GNR bacteremia, status of the PICC line exchange. - Severe anemia 2 GI bleed. Continue to monitor hemoglobin and hematocrit. Dr. Singh is following in gastroenterology consultation. - Acute kidney failure on chronic kidney disease. Continue to monitor BUN and creatinine. Dr. Mk Purdy is following in nephrology consultation. Patient with worsening renal function. Started on Hemodialysis during this admission. - Pancytopenia 2 chronic inflammation and sepsis. - Ventilator-dependent respiratory failure. Dr. Aragon is following in pulmonology consultation. Continue ventilator support, bronchodilators. - HCAP on admission. Status post treatment. - Dysphagia with PEG. - History of seizure disorder. Continue patient on Keppra. - Diastolic dysfunction congestive heart failure with preserved ejection fraction of 60%. - S/p sepsis on admission. Dr. Guy is following patient in infectious disease consultation. - Status post cerebrovascular accident, status post craniotomy. - Mental retardation. - DNR status Problems: Subjective 24 Hr Interval Summary Free Text/Dictation Patient is sedated and intubated, not responsive to voice or touch Exam/Review of Systems Vital Signs Vitals Vital Signs Date Time Temp Pulse Resp B/P Pulse Ox O2 Delivery O2 Flow Rate FiO2 10/13/16 10:00 104 17 105/56 97 Mechanical Ventilator 10/13/16 08:00 40 10/13/16 08:00 98.1 Intake and Output 10/12/16 10/12/16 10/13/16 15:00 23:00 07:00 Intake Total 2762 ml 754.0 ml 552 ml Output Total 4430 ml 15 ml 10 ml Balance -1668 ml 739.0 ml 542 ml Exam Constitutional: well developed Head: atraumatic, normocephalic Neck: supple Respiratory: diminished breath sounds Cardiovascular: regular rate and rhythm Gastrointestinal: non-tender, soft Results Result Diagram: 10/13/16 0520 10/13/16 0520 Results 24 hrs Laboratory Tests Test 10/12/16 12:07 10/12/16 17:23 10/12/16 23:36 10/12/16 23:56 Bedside Glucose 96 82 55 L 82 Test 10/13/16 00:37 10/13/16 01:03 10/13/16 01:23 10/13/16 02:06 Bedside Glucose 71 96 82 100 Test 10/13/16 05:20 10/13/16 06:23 Anion Gap 13 Blood Urea Nitrogen 73 H Calcium Level 7.3 L Carbon Dioxide Level 23 Chloride Level 107 Creatinine 1.50 H Eosinophils # Eosinophils % Glucose Level 73 Hematocrit 28.0 #L Hemoglobin 9.3 #L Mean Corpuscular Hemoglobin 28.8 L Mean Corpuscular Hemoglobin Concent 33.2 Mean Corpuscular Volume 86.7 Mean Platelet Volume 10.5 H Neutrophils # Neutrophils % Platelet Count 31 L Potassium Level 3.6 Red Blood Count 3.23 #L Red Cell Distribution Width 17.8 H Sodium Level 139 White Blood Count 4.3 L Bedside Glucose 81 Medications Medications Current Medications Acetaminophen (Tylenol Liquid) 640 mg Q6H PRN GTB PAIN OR TEMP ABOVE 38C Last administered on 10/07/16 17:51; Admin Dose 640 MG; Start 09/06/16 at 22:30 Allopurinol (Zyloprim) 200 mg DAILY GTB Last administered on 10/13/16 09:00; Admin Dose 200 MG; Start 09/07/16 at 09:00 Ascorbic Acid (Vitamin C) 500 mg BID GTB Last administered on 10/13/16 09:00; Admin Dose 500 MG; Start 09/07/16 at 09:00 Calcitriol (Rocaltrol) 0.25 mcg DAILY GTB Last administered on 10/13/16 09:00 ; Admin Dose 0.25 MCG; Start 09/07/16 at 09:00 Chlorhexidine Gluconate (Peridex) 15 ml BID MM Last administered on 10/13/16 09:00; Admin Dose 15 ML; Start 09/07/16 at 09:00 Metoclopramide HCl (Reglan) 5 mg Q8H PRN GTB NAUSEA AND/OR VOMITING; Start 09/06 at 22:30 Sucralfate (Carafate Susp) 1 gm BID GTB Last administered on 10/13/16 09:02; Admin Dose 1 GM; Start 09/07/16 at 09:00 Ondansetron HCl (Zofran Inj) 4 mg Q6H PRN IV NAUSEA AND/OR VOMITING Last administered on 09/17/16 00:52; Admin Dose 4 MG; Start 09/06/16 at 22:30 Morphine Sulfate (morphine) 2 mg Q4H PRN IV PAIN LEVEL 7-10 Last administered on 10/12/16 21:55; Admin Dose 2 MG; Start 09/06/16 at 22:30 Metoclopramide HCl (Reglan) 5 mg Q6H PRN IV RESIDUALS > 100; Start 09/10/16 at 19:00 Clonidine (Catapres) 0.1 mg Q6H PRN GTB ELEVATED SYSTOLIC BP Last administered on 09/15/16 07:04; Admin Dose 0.1 MG; Start 09/13/16 at 23:00 Hydralazine HCl (Apresoline) 10 mg Q6H PRN IV ELEVATED SYSTOLIC BP Last administered on 09/15/16 02:08; Admin Dose 10 MG; Start 09/15/16 at 01:50 Collagenase (Santyl) 1 applic DAILY TOP Last administered on 10/13/16 09:01; Admin Dose 1 APPLIC; Start 09/18/16 at 09:00 Glycopyrrolate (Robinul) 1 mg Q8 GTB Last administered on 10/12/16 14:28; Admin Dose 1 MG; Start 09/19/16 at 09:30 Amikacin Sulfate (Amikacin Iv Per Pharmacy) AMIKACIN PER PHARMACY NOTE XX ; Start 09/24/16 at 14:00 Miscellaneous Information 1 ea NOTE XX ; Start 09/28/16 at 09:00 Glucose (Glutose) 15 gm Q15M PRN PO DECREASED GLUCOSE; Start 09/28/16 at 09:00 Glucose (Glutose) 22.5 gm Q15M PRN PO DECREASED GLUCOSE; Start 09/28/16 at 09:00 Dextrose (D50w Syringe) 25 ml Q15M PRN IV DECREASED GLUCOSE Last administered on 10/13/16 00:41; Admin Dose 25 ML; Start 09/28/16 at 09:00 Dextrose (D50w Syringe) 50 ml Q15M PRN IV DECREASED GLUCOSE; Start 09/28/16 at 09:00 Glucagon (Glucagen) 1 mg Q15M PRN IM DECREASED GLUCOSE; Start 09/28/16 at 09:00 Glucose (Glutose) 15 gm Q15M PRN BUCCAL DECREASED GLUCOSE; Start 09/28/16 at 09: 00 Insulin Aspart (Novolog Insulin Pen) NOVOLOG *MILD* ALGORI... Q6 SC Last administered on 10/11/16 12:27; Admin Dose 1 UNIT; Start 09/29/16 at 00:00 IV Flush (NS 10 ml) 10 ml PRN PRN IV FLUSH LINE; Start 09/29/16 at 20:30 Epoetin Jeffry 6000 units 6,000 units [email or web address]@17 SC Last administered on 18:38; Admin Dose 6,000 UNITS; Start 10/01/16 at 17:00 Vancomycin HCl 1.25 gm/Sodium Chloride 250 ml @ 83.333 mls/ hr Q96H IVPB Last administered on 10/09/16 21:49; Admin Dose 83.333 MLS/HR; Start 10/09/16 at 17: 00 Pantoprazole 80 mg/Sodium Chloride 100 ml @ 10 mls/hr Q10H IV Last administered on 10/13/16 04:00; Admin Dose 10 MLS/HR; Start 10/09/16 at 19:00 Norepinephrine 16 mg/Dextrose 500 ml @ 0 mls/hr TITRATE IV Last administered on 10/11/16 20:53; Admin Dose 18.75 MLS/HR; Start 10/10/16 at 08:30 Levetiracetam 500 mg/Sodium Chloride 105 ml @ 420 mls/hr Q12 IVPB Last administered on 10/13/16 09:01; Admin Dose 420 MLS/HR; Start 10/10/16 at 21:00 Meropenem 100 ml @ 200 mls/hr Q24H IVPB Last administered on 10/12/16 21:42; Admin Dose 200 MLS/HR; Start 10/12/16 at 21:00 Dextrose/Sodium Chloride (D5-NS) 1,000 ml @ 50 mls/hr Q20H IV Last administered on 10/13/16t 01:04; Admin Dose 50 MLS/HR; Start 10/13/16 at 01:00 TAI PERRIN Oct 13, 2016 10:51
--- NOTE | 2016-10-13 12:01 | PN ---
DATE: 10/13/2016 PULMONARY FOLLOWUP SUBJECTIVE: The patient is in ICU on ventilator support. His mental status is poor. There is no e ye opening. His vital signs are stable, though the blood pressure is being maintained with Levophed drip at 5 mcg dosage. OBJECTIVE: VITAL SIGNS: Blood pressure is 105/56, pulse rate is 104, respirations 17, pulse oximetry showing 9 7% saturation. Respiratory rate is 17. NECK: Tracheal secretions are clear. No bleeding is seen. HEART: Regular rhythm with sinus tachycardia. CHEST: Breath sounds are heard bilaterally, diminished in both lower lung [place] with rales and rho nchi. ABDOMEN: Soft. G-tube feeding is on hold. Upper GI endoscopy could not be done yesterday because of patient's instability. GENITOURINARY: His urine output is poor. EXTREMITIES: Show generalized edema. LABORATORY DATA: Shows sodium 139, potassium 3.6, BUN 73, creatinine 1.50, glucose is 73. The CBC shows a WBC 4300, hemoglobin 9.3 following blood transfusion, hematocrit is 28, platelets are still decreased at 31,000. The blood culture shows carbapenem- resistant Klebsiella pneumoniae. IMPRESSION: 1. Septic shock secondary to gram-negative sepsis from carbapenem-resistant Klebsiella pneumoniae. 2. Chronic respiratory failure, ventilator-dependent. 3. History of seizure disorder. 4. Chronic encephalopathy. 5. Acute renal failure, on dialysis. 6. Pancytopenia. 7. History of developmental delay. 8. Probable gastrointestinal bleed. PLAN: 1. Continue long-term ventilator support. 2. Continue pressor drugs to stabilize the blood pressure. 3. Continue antibiotics as per ID oncology consultant. 4. Continue dialysis per nephrology. 5. Continue bronchodilator inhalation therapy. Discussed with Dr. Mcelroy, the primary physician, yesterday. The patient's treatment was discusse d in bioethics committee and the recommendation seems to be to make the patient be and stop t he dialysis. This seems to be done probably next week. I have requested we have family members. Dictated By: VEENA STREETER MD SR/NTS Conf#: [id number] DID#: [id number]
[2016-10-13] MEDS: AMIKACIN 400 MG in SOD CHLORIDE 0.9% 100 ML IVPB SCH (13:11)
[2016-10-13 13:52] LABS: LYMPHOCYTES # 0.1 10^3/ul (0.8-2.9); MONOCYTE # 0.2 10^3/ul (0.3-0.9); NEUTROPHIL # 3.4 10^3/ul (1.6-7.5); PLATELET ESTIMATE PLT APPEAR DECREASED
--- NOTE | 2016-10-13 14:26 | PN ---
Date/Time of Note Date/Time of Note DATE: 10/13/16 TIME: 14:22 Assessment/Plan VTE Prophylaxis VTE Prophylaxis Intervention: other (per pmd) Lines/Catheters IV Catheter Type (from Nrsg): PICC Line Central line still needed: No (per pmd) Urinary Cath still in place: Yes Reason Cath still needed: other (indicate) (per pmd) Assessment/Plan Chief Complaint/Hosp Course gi bleeding stable ehics committee recommended no aggressive measures egd cancelled Problems: Subjective 24 Hr Interval Summary Free Text/Dictation pt unresponsive h/o ugi bleeding Exam/Review of Systems Vital Signs Vitals Vital Signs Date Time Temp Pulse Resp B/P Pulse Ox O2 Delivery O2 Flow Rate FiO2 10/13/16 13:15 106 18 98 35 10/13/16 10:00 105/56 Mechanical Ventilator 10/13/16 08:00 98.1 Intake and Output 10/12/16 10/12/16 10/13/16 15:00 23:00 07:00 Intake Total 2762 ml 754.0 ml 552 ml Output Total 4430 ml 15 ml 10 ml Balance -1668 ml 739.0 ml 542 ml Exam bp mstill low iaround 100 on levophed pulse in 80s abd soft ng non bloody hb around 9 Results Result Diagram: 10/13/16 0520 10/13/16 0520 Results 24 hrs Laboratory Tests Test 10/12/16 17:23 10/12/16 23:36 10/12/16 23:56 10/13/16 00:37 Bedside Glucose 82 55 L 82 71 Test 10/13/16 01:03 10/13/16 01:23 10/13/16 02:06 10/13/16 05:20 Bedside Glucose 96 82 100 Anion Gap 13 Band Neutrophils % 13.0 H Blood Urea Nitrogen 73 H Calcium Level 7.3 L Carbon Dioxide Level 23 Chloride Level 107 Creatinine 1.50 H Eosinophils # Eosinophils % Glucose Level 73 Hematocrit 28.0 #L Hemoglobin 9.3 #L Lymphocytes # 0.1 L Lymphocytes % 2.0 L Mean Corpuscular Hemoglobin 28.8 L Mean Corpuscular Hemoglobin Concent 33.2 Mean Corpuscular Volume 86.7 Mean Platelet Volume 10.5 H Monocytes # 0.2 L Monocytes % 5.0 Neutrophils # 3.4 Neutrophils % 80.0 H Platelet Count 31 L Platelet Estimate PLT APPEAR DECREASED Potassium Level 3.6 Red Blood Count 3.23 #L Red Cell Distribution Width 17.8 H Sodium Level 139 White Blood Count 4.3 L Test 10/13/16 06:23 10/13/16 12:15 Bedside Glucose 81 83 Medications Medications Current Medications Acetaminophen (Tylenol Liquid) 640 mg Q6H PRN GTB PAIN OR TEMP ABOVE 38C Last administered on 10/07/16 17:51; Admin Dose 640 MG; Start 09/06/16 at 22:30 Allopurinol (Zyloprim) 200 mg DAILY GTB Last administered on 10/13/16 09:00; Admin Dose 200 MG; Start 09/07/16 at 09:00 Ascorbic Acid (Vitamin C) 500 mg BID GTB Last administered on 10/13/16 09:00; Admin Dose 500 MG; Start 09/07/16 at 09:00 Calcitriol (Rocaltrol) 0.25 mcg DAILY GTB Last administered on 10/13/16 09:00 ; Admin Dose 0.25 MCG; Start 09/07/16 at 09:00 Chlorhexidine Gluconate (Peridex) 15 ml BID MM Last administered on 10/13/16 09:00; Admin Dose 15 ML; Start 09/07/16 at 09:00 Metoclopramide HCl (Reglan) 5 mg Q8H PRN GTB NAUSEA AND/OR VOMITING; Start 09/06 at 22:30 Sucralfate (Carafate Susp) 1 gm BID GTB Last administered on 10/13/16 09:02; Admin Dose 1 GM; Start 09/07/16 at 09:00 Ondansetron HCl (Zofran Inj) 4 mg Q6H PRN IV NAUSEA AND/OR VOMITING Last administered on 09/17/16 00:52; Admin Dose 4 MG; Start 09/06/16 at 22:30 Morphine Sulfate (morphine) 2 mg Q4H PRN IV PAIN LEVEL 7-10 Last administered on 10/12/16 21:55; Admin Dose 2 MG; Start 09/06/16 at 22:30 Metoclopramide HCl (Reglan) 5 mg Q6H PRN IV RESIDUALS > 100; Start 09/10/16 at 19:00 Clonidine (Catapres) 0.1 mg Q6H PRN GTB ELEVATED SYSTOLIC BP Last administered on 09/15/16 07:04; Admin Dose 0.1 MG; Start 09/13/16 at 23:00 Hydralazine HCl (Apresoline) 10 mg Q6H PRN IV ELEVATED SYSTOLIC BP Last administered on 09/15/16 02:08; Admin Dose 10 MG; Start 09/15/16 at 01:50 Collagenase (Santyl) 1 applic DAILY TOP Last administered on 10/13/16 09:01; Admin Dose 1 APPLIC; Start 09/18/16 at 09:00 Glycopyrrolate (Robinul) 1 mg Q8 GTB Last administered on 10/13/16 14:08; Admin Dose 1 MG; Start 09/19/16 at 09:30 Amikacin Sulfate (Amikacin Iv Per Pharmacy) AMIKACIN PER PHARMACY NOTE XX ; Start 09/24/16 at 14:00 Miscellaneous Information 1 ea NOTE XX ; Start 09/28/16 at 09:00 Glucose (Glutose) 15 gm Q15M PRN PO DECREASED GLUCOSE; Start 09/28/16 at 09:00 Glucose (Glutose) 22.5 gm Q15M PRN PO DECREASED GLUCOSE; Start 09/28/16 at 09:00 Dextrose (D50w Syringe) 25 ml Q15M PRN IV DECREASED GLUCOSE Last administered on 10/13/16 00:41; Admin Dose 25 ML; Start 09/28/16 at 09:00 Dextrose (D50w Syringe) 50 ml Q15M PRN IV DECREASED GLUCOSE; Start 09/28/16 at 09:00 Glucagon (Glucagen) 1 mg Q15M PRN IM DECREASED GLUCOSE; Start 09/28/16 at 09:00 Glucose (Glutose) 15 gm Q15M PRN BUCCAL DECREASED GLUCOSE; Start 09/28/16 at 09: 00 Insulin Aspart (Novolog Insulin Pen) NOVOLOG *MILD* ALGORI... Q6 SC Last administered on 10/11/16 12:27; Admin Dose 1 UNIT; Start 09/29/16 at 00:00 IV Flush (NS 10 ml) 10 ml PRN PRN IV FLUSH LINE; Start 09/29/16 at 20:30 Epoetin Jeffry 6000 units 6,000 units [id number]@17 SC Last administered on 18:38; Admin Dose 6,000 UNITS; Start 10/01/16 at 17:00 Vancomycin HCl 1.25 gm/Sodium Chloride 250 ml @ 83.333 mls/ hr Q96H IVPB Last administered on 10/09/16 21:49; Admin Dose 83.333 MLS/HR; Start 10/09/16 at 17: 00 Pantoprazole 80 mg/Sodium Chloride 100 ml @ 10 mls/hr Q10H IV Last administered on 10/13/16 13:11; Admin Dose 10 MLS/HR; Start 10/09/16 at 19:00 Norepinephrine 16 mg/Dextrose 500 ml @ 0 mls/hr TITRATE IV Last administered on 10/11/16 20:53; Admin Dose 18.75 MLS/HR; Start 10/10/16 at 08:30 Levetiracetam 500 mg/Sodium Chloride 105 ml @ 420 mls/hr Q12 IVPB Last administered on 10/13/16 09:01; Admin Dose 420 MLS/HR; Start 10/10/16 at 21:00 Meropenem 100 ml @ 200 mls/hr Q24H IVPB Last administered on 10/12/16 21:42; Admin Dose 200 MLS/HR; Start 10/12/16 at 21:00 Dextrose/Sodium Chloride (D5-NS) 1,000 ml @ 50 mls/hr Q20H IV Last administered on 10/13/16 01:04; Admin Dose 50 MLS/HR; Start 10/13/16 at 01:00 GEORGE DOS SANTOS MD Oct 13, 2016 14:26
--- NOTE | 2016-10-13 15:01 | CONS ---
Date/Time of Note Date/Time of Note DATE: 10/13/16 TIME: 14:59 Assessment/Plan Assessment/Plan Chief Complaint/Hosp Course SUBJECTIVE: Patient remains obtunded on pressors with persistent cough that grew out secretions from NG tube, with increased anasarca. MICROBIOLOGY: Repeat blood culture growing MDR gram-negative rods. ANTIMICROBIALS: 1. Colistin 2. Vancomycin. INDWELLINGS: Trach, PEG, left upper extremity PICC line, right chest Perm-A- Cath. PHYSICAL EXAMINATION: GENERAL: Chronically ill-appearing, elderly man who is lying comfortably in bed. Patient is nonverbal, noncommunicative. HEENT: Head atraumatic, normocephalic. Sclerae anicteric. Buccal mucosa dry. NECK: Obese. CHEST: Rise symmetrical. Breath sounds diminished. HEART: S1, S2. ABDOMEN: Distended. Bowel tones hypoactive. Extremities contractured. Skin with severe anasarca and multiple unstageable decubitus with foul odor. ASSESSMENT: 1. Severe sepsis with shock and multisystem organ failure. 2. Persistent Gram-negative julita bacteremia. 3. Multiple chronic wounds with possible osteomyelitis. 4. Anemia with progressive thrombocytopenia. 5. Acute on chronic kidney disease, hemodialysis dependent. 6. Chronic encephalopathy. 7. Chronic respiratory failure. PLAN: The patient remains hemodynamically unstable and doing poorly, he is DNR status. Continue abx, add Flagyl for anaerobic coverage, possible comfort care focus on Saturday DW staff Problems: Consultation Date/Type/Reason Admit Date/Time Sep 06, 2016 at 22:27 Initial Consult Date 09/07/16 Type of Consultation: id Referring Provider: FREDDY COELLO MD Exam/Review of Systems Vital Signs Vitals Vital Signs Date Time Temp Pulse Resp B/P Pulse Ox O2 Delivery O2 Flow Rate FiO2 10/13/16 13:15 106 18 98 35 10/13/16 10:00 105/56 Mechanical Ventilator 10/13/16 08:00 98.1 Intake and Output 10/12/16 10/12/16 10/13/16 15:00 23:00 07:00 Intake Total 2762 ml 754.0 ml 552 ml Output Total 4430 ml 15 ml 10 ml Balance -1668 ml 739.0 ml 542 ml Results Result Diagram: 10/13/16 0520 10/13/16 0520 Results 24 hrs Laboratory Tests Test 10/12/16 17:23 10/12/16 23:36 10/12/16 23:56 10/13/16 00:37 Bedside Glucose 82 55 L 82 71 Test 10/13/16 01:03 10/13/16 01:23 10/13/16 02:06 10/13/16 05:20 Bedside Glucose 96 82 100 Anion Gap 13 Band Neutrophils % 13.0 H Blood Urea Nitrogen 73 H Calcium Level 7.3 L Carbon Dioxide Level 23 Chloride Level 107 Creatinine 1.50 H Eosinophils # Eosinophils % Glucose Level 73 Hematocrit 28.0 #L Hemoglobin 9.3 #L Lymphocytes # 0.1 L Lymphocytes % 2.0 L Mean Corpuscular Hemoglobin 28.8 L Mean Corpuscular Hemoglobin Concent 33.2 Mean Corpuscular Volume 86.7 Mean Platelet Volume 10.5 H Monocytes # 0.2 L Monocytes % 5.0 Neutrophils # 3.4 Neutrophils % 80.0 H Platelet Count 31 L Platelet Estimate PLT APPEAR DECREASED Potassium Level 3.6 Red Blood Count 3.23 #L Red Cell Distribution Width 17.8 H Sodium Level 139 White Blood Count 4.3 L Test 10/13/16 06:23 10/13/16 12:15 Bedside Glucose 81 83 Medications Medications Current Medications Acetaminophen (Tylenol Liquid) 640 mg Q6H PRN GTB PAIN OR TEMP ABOVE 38C Last administered on 10/07/16 17:51; Admin Dose 640 MG; Start 09/06/16 at 22:30 Allopurinol (Zyloprim) 200 mg DAILY GTB Last administered on 10/13/16 09:00; Admin Dose 200 MG; Start 09/07/16 at 09:00 Ascorbic Acid (Vitamin C) 500 mg BID GTB Last administered on 10/13/16 09:00; Admin Dose 500 MG; Start 09/07/16 at 09:00 Calcitriol (Rocaltrol) 0.25 mcg DAILY GTB Last administered on 10/13/16 09:00 ; Admin Dose 0.25 MCG; Start 09/07/16 at 09:00 Chlorhexidine Gluconate (Peridex) 15 ml BID MM Last administered on 10/13/16 09:00; Admin Dose 15 ML; Start 09/07/16 at 09:00 Metoclopramide HCl (Reglan) 5 mg Q8H PRN GTB NAUSEA AND/OR VOMITING; Start 09/06 at 22:30 Sucralfate (Carafate Susp) 1 gm BID GTB Last administered on 10/13/16 09:02; Admin Dose 1 GM; Start 09/07/16 at 09:00 Ondansetron HCl (Zofran Inj) 4 mg Q6H PRN IV NAUSEA AND/OR VOMITING Last administered on 09/17/16 00:52; Admin Dose 4 MG; Start 09/06/16 at 22:30 Morphine Sulfate (morphine) 2 mg Q4H PRN IV PAIN LEVEL 7-10 Last administered on 10/12/16 21:55; Admin Dose 2 MG; Start 09/06/16 at 22:30 Metoclopramide HCl (Reglan) 5 mg Q6H PRN IV RESIDUALS > 100; Start 09/10/16 at 19:00 Clonidine (Catapres) 0.1 mg Q6H PRN GTB ELEVATED SYSTOLIC BP Last administered on 09/15/16 07:04; Admin Dose 0.1 MG; Start 09/13/16 at 23:00 Hydralazine HCl (Apresoline) 10 mg Q6H PRN IV ELEVATED SYSTOLIC BP Last administered on 09/15/16 02:08; Admin Dose 10 MG; Start 09/15/16 at 01:50 Collagenase (Santyl) 1 applic DAILY TOP Last administered on 10/13/16 09:01; Admin Dose 1 APPLIC; Start 09/18/16 at 09:00 Glycopyrrolate (Robinul) 1 mg Q8 GTB Last administered on 10/13/16 14:08; Admin Dose 1 MG; Start 09/19/16 at 09:30 Amikacin Sulfate (Amikacin Iv Per Pharmacy) AMIKACIN PER PHARMACY NOTE XX ; Start 09/24/16 at 14:00 Miscellaneous Information 1 ea NOTE XX ; Start 09/28/16 at 09:00 Glucose (Glutose) 15 gm Q15M PRN PO DECREASED GLUCOSE; Start 09/28/16 at 09:00 Glucose (Glutose) 22.5 gm Q15M PRN PO DECREASED GLUCOSE; Start 09/28/16 at 09:00 Dextrose (D50w Syringe) 25 ml Q15M PRN IV DECREASED GLUCOSE Last administered on 10/13/16 00:41; Admin Dose 25 ML; Start 09/28/16 at 09:00 Dextrose (D50w Syringe) 50 ml Q15M PRN IV DECREASED GLUCOSE; Start 09/28/16 at 09:00 Glucagon (Glucagen) 1 mg Q15M PRN IM DECREASED GLUCOSE; Start 09/28/16 at 09:00 Glucose (Glutose) 15 gm Q15M PRN BUCCAL DECREASED GLUCOSE; Start 09/28/16 at 09: 00 Insulin Aspart (Novolog Insulin Pen) NOVOLOG *MILD* ALGORI... Q6 SC Last administered on 10/11/16 12:27; Admin Dose 1 UNIT; Start 09/29/16 at 00:00 IV Flush (NS 10 ml) 10 ml PRN PRN IV FLUSH LINE; Start 09/29/16 at 20:30 Epoetin Jeffry 6000 units 6,000 units [id number]@17 SC Last administered on 18:38; Admin Dose 6,000 UNITS; Start 10/01/16 at 17:00 Vancomycin HCl 1.25 gm/Sodium Chloride 250 ml @ 83.333 mls/ hr Q96H IVPB Last administered on 10/09/16 21:49; Admin Dose 83.333 MLS/HR; Start 10/09/16 at 17: 00 Pantoprazole 80 mg/Sodium Chloride 100 ml @ 10 mls/hr Q10H IV Last administered on 10/13/16 13:11; Admin Dose 10 MLS/HR; Start 10/09/16 at 19:00 Norepinephrine 16 mg/Dextrose 500 ml @ 0 mls/hr TITRATE IV Last administered on 10/11/16 20:53; Admin Dose 18.75 MLS/HR; Start 10/10/16 at 08:30 Levetiracetam 500 mg/Sodium Chloride 105 ml @ 420 mls/hr Q12 IVPB Last administered on 10/13/16 09:01; Admin Dose 420 MLS/HR; Start 10/10/16 at 21:00 Meropenem 100 ml @ 200 mls/hr Q24H IVPB Last administered on 10/12/16 21:42; Admin Dose 200 MLS/HR; Start 10/12/16 at 21:00 Dextrose/Sodium Chloride (D5-NS) 1,000 ml @ 50 mls/hr Q20H IV Last administered on 10/13/16t 01:04; Admin Dose 50 MLS/HR; Start 10/13/16 at 01:00 ARUN DIANA NP Oct 13, 2016 15:00
[2016-10-13] MEDS: COLISTIMETHATE 75 MG in SOD CHLORIDE 0.9% 100 ML IVPB SCH (16:35)
[2016-10-13] MEDS: VANCOMYCIN 1.25 GM in SOD CHLORIDE 0.9% 250 ML IVPB SCH (17:17)
[2016-10-13] MEDS ORDERED: PHYTONADIONE 10 MG/ML INJ SC ONE (18:00)
[2016-10-13] MEDS: metroNIDAZOLE 500 MG/NS (PMX) 100 ML IVPB SCH (22:23)
[2016-10-14] VITALS (91 sets, daily range): BP systolic 83–132; BP diastolic 46–71; PULSE 0–121; RESP 0–31
[2016-10-14] MEDS: PANTOPRAZOLE IV 80 MG in SOD CHLORIDE 0.9% 100 ML IV SCH ×3 (00:13→20:23)
[2016-10-14] MEDS: DEXTROSE 50% 50 ML SYRINGE IV PRN ×2 (00:28→00:58)
[2016-10-14] MEDS: IPRATROPIUM (HFA) 12.9 GM INHALER INH SCH ×4 (01:13→19:04)
[2016-10-14] MEDS: LEVALBUTEROL (HFA) 15 GM INHALER INH SCH ×4 (01:13→19:04)
[2016-10-14] MEDS: DEXTROSE 5%-0.9% NACL 1,000 ML IV SCH ×2 (03:44→16:30)
[2016-10-14 04:52] LABS: ADD SCAN DIFF NO
[2016-10-14 05:08] LABS: INR 1.55; PROTIME 18.7 Sec (12.2-14.2); PT RATIO 1.5
[2016-10-14 05:09] LABS: ABNORMAL IP MESSAGE 1; BASOPHILS % 0.3 % (0.0-2.0); EOSINOPHILS # 0.1 10^3/ul (0.0-0.5); EOSINOPHILS % 1.6 % (0.0-7.0); HEMATOCRIT 28.6 % (42.0-52.0); HEMOGLOBIN 9.5 g/dl (14.0-18.0); LYMPHOCYTES # 0.3 10^3/ul (0.8-2.9); LYMPHOCYTES % 8.2 % (15.0-51.0); MEAN CORPUSCULAR HGB CONC 33.2 g/dl (32.0-37.0); MEAN CORPUSCULAR VOLUME 87.2 fl (82.0-101.0); MEAN PLATELET VOLUME 10.5 fl (7.4-10.4); MONOCYTE # 0.5 10^3/ul (0.3-0.9); MONOCYTES % 14.8 % (0.0-11.0); NEUTROPHIL # 2.3 10^3/ul (1.6-7.5); NEUTROPHILS % 74.1 % (39.0-77.0); RED BLOOD COUNT 3.28 10^6/ul (4.70-6.10); RED CELL DISTRIBUTION WIDTH 17.8 % (11.5-14.5)
[2016-10-14 05:22] LABS: PLATELET COUNT 21 10^3/UL (140-415)
[2016-10-14 05:35] LABS: ALBUMIN 1.4 g/dl (3.3-4.9); POTASSIUM 3.7 mmol/L (3.5-5.1)
[2016-10-14 05:38] LABS: ALBUMIN/GLOBULIN RATIO 0.43; CREATININE 1.72 mg/dl (0.61-1.24); TOTAL PROTEIN 4.6 g/dl (6.1-8.1)
[2016-10-14 05:39] LABS: CALCIUM 7.4 mg/dl (8.4-10.2)
[2016-10-14] MEDS: GLYCOPYRROLATE 1 MG TAB GTB SCH ×3 (05:50→21:44)
[2016-10-14] MEDS: metroNIDAZOLE 500 MG/NS (PMX) 100 ML IVPB SCH ×3 (05:51→21:45)
[2016-10-14] MEDS: INSULIN ASPART [NOVOLOG] 3 ML PEN SC SCH ×4 (05:57→18:00)
[2016-10-14] MEDS: SEVELAMER CARBONATE 2.4 GM PKT GTB SCH ×3 (07:21→17:22)
[2016-10-14] MEDS: LEVETIRACETAM IV 500 MG in SOD CHLORIDE 0.9% 100 ML IVPB SCH ×2 (09:01→20:56)
[2016-10-14] MEDS: CHLORHEXIDINE GLUCONATE 15 ML UD CUP MM SCH ×2 (09:01→20:56)
[2016-10-14] MEDS: CALCITRIOL 0.25 MCG CAP GTB SCH (09:01)
[2016-10-14] MEDS: SUCRALFATE (100 MG/ML) 10ML CUP GTB SCH ×2 (09:01→20:56)
[2016-10-14] MEDS: ALLOPURINOL 100 MG TAB GTB SCH (09:01)
[2016-10-14] MEDS: ASCORBIC ACID 500 MG TAB GTB SCH ×2 (09:01→20:56)
[2016-10-14] MEDS: COLLAGENASE 30 GM TUBE TOP SCH (09:06)
[2016-10-14] MEDS: COLISTIMETHATE 75 MG in SOD CHLORIDE 0.9% 100 ML IVPB SCH (10:15)
--- NOTE | 2016-10-14 11:15 | PN ---
Date/Time of Note Date/Time of Note DATE: 10/14/16 TIME: 11:14 Assessment/Plan VTE Prophylaxis VTE Prophylaxis Intervention: other Lines/Catheters IV [facility]ter Type (from [facility]): PICC Line Central line still needed: Yes Urinary Cath still in place: Yes Reason Cath still needed: skin wounds contaminated by urine Assessment/Plan Chief Complaint/Hosp Course - Shock hypovolemic, possibly septic. Continue ICU care, IVF, pressors, blood transfusion. - Severe anemia anemia secondary to GI bleed. Continue Protonix drip. Plan for possible endoscopy when patient is more stable. Continue blood transfusion. - Heparin-induced thrombocytopenia, hold heparin, patient status post platelets transfusion. Dr. Coughlin is following in hematology consultation. - GNR bacteremia, status of the PICC line exchange. - Severe anemia 2 GI bleed. Continue to monitor hemoglobin and hematocrit. Dr. Singh is following in gastroenterology consultation. - Acute kidney failure on chronic kidney disease. Continue to monitor BUN and creatinine. Dr. Mk Purdy is following in nephrology consultation. Patient with worsening renal function. Started on Hemodialysis during this admission. - Pancytopenia 2 chronic inflammation and sepsis. - Ventilator-dependent respiratory failure. Dr. Aragon is following in pulmonology consultation. Continue ventilator support, bronchodilators. - HCAP on admission. Status post treatment. - Dysphagia with PEG. - History of seizure disorder. Continue patient on Keppra. - Diastolic dysfunction congestive heart failure with preserved ejection fraction of 60%. - S/p sepsis on admission. Dr. Guy is following patient in infectious disease consultation. - Status post cerebrovascular accident, status post craniotomy. - Mental retardation. - DNR status Problems: Subjective 24 Hr Interval Summary Free Text/Dictation Patient is sedated, on ventilator Exam/Review of Systems Vital Signs Vitals Vital Signs Date Time Temp Pulse Resp B/P Pulse Ox O2 Delivery O2 Flow Rate FiO2 10/14/16 10:15 114 12 91/48 98 10/14/16 10:00 Mechanical Ventilator 10/14/16 08:00 99.2 10/14/16 08:00 40 Intake and Output 10/13/16 10/13/16 10/14/16 15:00 23:00 07:00 Intake Total 657 ml 669.866 ml 415.8 ml Output Total 10 ml 5 ml Balance 647 ml 664.866 ml 415.8 ml Exam Constitutional: well developed Head: atraumatic, normocephalic Neck: supple Respiratory: diminished breath sounds Cardiovascular: regular rate and rhythm Gastrointestinal: non-tender, soft Results Result Diagram: 10/14/16 0445 10/14/16 0445 Results 24 hrs Laboratory Tests Test 10/13/16 12:15 10/13/16 18:02 10/14/16 00:19 10/14/16 00:53 Bedside Glucose 83 74 57 L 68 L Test 10/14/16 01:23 10/14/16 04:45 10/14/16 05:55 Bedside Glucose 116 73 Alanine Aminotransferase (ALT/SGPT) 24 Albumin 1.4 L Albumin/Globulin Ratio 0.43 Alkaline Phosphatase 106 Anion Gap 14 Aspartate Amino Transf (AST/SGOT) 20 Basophils # 0.0 Basophils % 0.3 Blood Urea Nitrogen 74 H Calcium Level 7.4 L Carbon Dioxide Level 22 Chloride Level 107 Creatinine 1.72 H Direct Bilirubin 0.00 Eosinophils # 0.1 Eosinophils % 1.6 Globulin 3.20 Glucose Level 65 L Hematocrit 28.6 L Hemoglobin 9.5 L INR International Normalized Ratio 1.55 Indirect Bilirubin 0.0 Lymphocytes # 0.3 L Lymphocytes % 8.2 L Mean Corpuscular Hemoglobin 29.0 Mean Corpuscular Hemoglobin Concent 33.2 Mean Corpuscular Volume 87.2 Mean Platelet Volume 10.5 H Monocytes # 0.5 Monocytes % 14.8 H Neutrophils # 2.3 Neutrophils % 74.1 Nucleated Red Blood Cells # 0.0 Nucleated Red Blood Cells % 0.0 Platelet Count 21 #*L Potassium Level 3.7 Prothrombin Time 18.7 H Prothrombin Time Ratio 1.5 Red Blood Count 3.28 L Red Cell Distribution Width 17.8 H Sodium Level 139 Total Bilirubin 0.0 L Total Protein 4.6 L White Blood Count 3.0 #L Medications Medications Current Medications Acetaminophen (Tylenol Liquid) 640 mg Q6H PRN GTB PAIN OR TEMP ABOVE 38C Last administered on 10/07/16 17:51; Admin Dose 640 MG; Start 09/06/16 at 22:30 Allopurinol (Zyloprim) 200 mg DAILY GTB Last administered on 10/14/16 09:01; Admin Dose 200 MG; Start 09/07/16 at 09:00 Ascorbic Acid (Vitamin C) 500 mg BID GTB Last administered on 10/14/16 09:01; Admin Dose 500 MG; Start 09/07/16 at 09:00 Calcitriol (Rocaltrol) 0.25 mcg DAILY GTB Last administered on 10/14/16 09:01 ; Admin Dose 0.25 MCG; Start 09/07/16 at 09:00 Chlorhexidine Gluconate (Peridex) 15 ml BID MM Last administered on 10/14/16 09:01; Admin Dose 15 ML; Start 09/07/16 at 09:00 Metoclopramide HCl (Reglan) 5 mg Q8H PRN GTB NAUSEA AND/OR VOMITING; Start 09/06 at 22:30 Sucralfate (Carafate Susp) 1 gm BID GTB Last administered on 10/14/16 09:01; Admin Dose 1 GM; Start 09/07/16 at 09:00 Ondansetron HCl (Zofran Inj) 4 mg Q6H PRN IV NAUSEA AND/OR VOMITING Last administered on 09/17/16 00:52; Admin Dose 4 MG; Start 09/06/16 at 22:30 Morphine Sulfate (morphine) 2 mg Q4H PRN IV PAIN LEVEL 7-10 Last administered on 10/12/16 21:55; Admin Dose 2 MG; Start 09/06/16 at 22:30 Metoclopramide HCl (Reglan) 5 mg Q6H PRN IV RESIDUALS > 100; Start 09/10/16 at 19:00 Clonidine (Catapres) 0.1 mg Q6H PRN GTB ELEVATED SYSTOLIC BP Last administered on 09/15/16 07:04; Admin Dose 0.1 MG; Start 09/13/16 at 23:00 Hydralazine HCl (Apresoline) 10 mg Q6H PRN IV ELEVATED SYSTOLIC BP Last administered on 09/15/16 02:08; Admin Dose 10 MG; Start 09/15/16 at 01:50 Collagenase (Santyl) 1 applic DAILY TOP Last administered on 10/14/16 09:06; Admin Dose 1 APPLIC; Start 09/18/16 at 09:00 Glycopyrrolate (Robinul) 1 mg Q8 GTB Last administered on 10/14/16 05:50; Admin Dose 1 MG; Start 09/19/16 at 09:30 Miscellaneous Information 1 ea NOTE XX ; Start 09/28/16 at 09:00 Glucose (Glutose) 15 gm Q15M PRN PO DECREASED GLUCOSE; Start 09/28/16 at 09:00 Glucose (Glutose) 22.5 gm Q15M PRN PO DECREASED GLUCOSE; Start 09/28/16 at 09:00 Dextrose (D50w Syringe) 25 ml Q15M PRN IV DECREASED GLUCOSE Last administered on 10/14/16 00:58; Admin Dose 25 ML; Start 09/28/16 at 09:00 Dextrose (D50w Syringe) 50 ml Q15M PRN IV DECREASED GLUCOSE; Start 09/28/16 at 09:00 Glucagon (Glucagen) 1 mg Q15M PRN IM DECREASED GLUCOSE; Start 09/28/16 at 09:00 Glucose (Glutose) 15 gm Q15M PRN BUCCAL DECREASED GLUCOSE; Start 09/28/16 at 09: 00 Insulin Aspart (Novolog Insulin Pen) NOVOLOG *MILD* ALGORI... Q6 SC Last administered on 10/11/16 12:27; Admin Dose 1 UNIT; Start 09/29/16 at 00:00 IV Flush (NS 10 ml) 10 ml PRN PRN IV FLUSH LINE; Start 09/29/16 at 20:30 Epoetin Jeffry 6000 units 6,000 units [email or web address]@[email or web address] SC Last administered on 18:38; Admin Dose 6,000 UNITS; Start 10/01/16 at 17:00 Vancomycin HCl 1.25 gm/Sodium Chloride 250 ml @ 83.333 mls/ hr Q96H IVPB Last administered on 10/13/16 17:17; Admin Dose 83.333 MLS/HR; Start 10/09/16 at 17: 00 Pantoprazole 80 mg/Sodium Chloride 100 ml @ 10 mls/hr Q10H IV Last administered on 10/14/16 10:15; Admin Dose 10 MLS/HR; Start 10/09/16 at 19:00 Norepinephrine 16 mg/Dextrose 500 ml @ 0 mls/hr TITRATE IV Last administered on 10/13/16 18:41; Admin Dose 9.37 MLS/HR; Start 10/10/16 at 08:30 Levetiracetam 500 mg/Sodium Chloride 105 ml @ 420 mls/hr Q12 IVPB Last administered on 10/14/16 09:01; Admin Dose 420 MLS/HR; Start 10/10/16 at 21:00 Dextrose/Sodium Chloride 1,000 ml @ 50 mls/hr Q20H IV Last administered on 03:44; Admin Dose 50 MLS/HR; Start 10/13/16 at 01:00 Colistimethate Sodium 75 mg/ Sodium Chloride 100 ml @ 200 mls/hr DAILY IVPB Last administered on 10/14/16 10:15; Admin Dose 200 MLS/HR; Start 10/13/16 at 16:00 Metronidazole (Flagyl 500 Mg (Pmx)) 100 ml @ 100 mls/hr Q8 IVPB Last administered on 10/14/16 05:51; Admin Dose 100 MLS/HR; Start 10/13/16 at 22:00 TAI PERRIN Oct 14, 2016 11:15
--- NOTE | 2016-10-14 16:00 | CONS ---
Date/Time of Note Date/Time of Note DATE: 10/14/16 TIME: 15:58 Assessment/Plan Assessment/Plan Chief Complaint/Hosp Course SUBJECTIVE: Patient remains unchanged, on pressors, nad. MICROBIOLOGY: Repeat blood culture growing MDR gram-negative rods. ANTIMICROBIALS: 1. Colistin 2. Vancomycin. 3. Flagyl INDWELLINGS: Trach, PEG, left upper extremity PICC line, right chest Perm-A- Cath. PHYSICAL EXAMINATION: GENERAL: Chronically ill-appearing, elderly man who is lying comfortably in bed. Patient is nonverbal, noncommunicative. HEENT: Head atraumatic, normocephalic. Sclerae anicteric. Buccal mucosa dry. NECK: Obese. CHEST: Rise symmetrical. Breath sounds diminished. HEART: S1, S2. ABDOMEN: Distended. Bowel tones hypoactive. Extremities contractured. Skin with severe anasarca and multiple unstageable decubitus with foul odor. ASSESSMENT: 1. Severe sepsis with shock and multisystem organ failure. 2. Persistent Gram-negative julita bacteremia. 3. Multiple chronic wounds with possible osteomyelitis. 4. Anemia with progressive thrombocytopenia. 5. Acute on chronic kidney disease, hemodialysis dependent. 6. Chronic encephalopathy. 7. Chronic respiratory failure. PLAN: The patient remains hemodynamically unstable, continue abx, possible comfort care focus on Saturday . Prognosis poor. DW staff Problems: Consultation Date/Type/Reason Admit Date/Time Sep 06, 2016 at 22:27 Initial Consult Date 09/07/16 Type of Consultation: id Referring Provider: FREDDY COELLO MD Exam/Review of Systems Vital Signs Vitals Vital Signs Date Time Temp Pulse Resp B/P Pulse Ox O2 Delivery O2 Flow Rate FiO2 10/14/16 14:45 121 24 89/54 100 10/14/16 14:00 Mechanical Ventilator 10/14/16 12:00 98.9 10/14/16 11:20 35 Intake and Output 10/13/16 10/13/16 10/14/16 15:00 23:00 07:00 Intake Total 657 ml 669.866 ml 415.8 ml Output Total 10 ml 5 ml Balance 647 ml 664.866 ml 415.8 ml Results Result Diagram: 10/14/16 0445 10/14/16 0445 Results 24 hrs Laboratory Tests Test 10/13/16 18:02 10/14/16 00:19 10/14/16 00:53 10/14/16 01:23 Bedside Glucose 74 57 L 68 L 116 Test 10/14/16 04:45 10/14/16 05:55 10/14/16 12:17 Alanine Aminotransferase (ALT/SGPT) 24 Albumin 1.4 L Albumin/Globulin Ratio 0.43 Alkaline Phosphatase 106 Anion Gap 14 Aspartate Amino Transf (AST/SGOT) 20 Basophils # 0.0 Basophils % 0.3 Blood Urea Nitrogen 74 H Calcium Level 7.4 L Carbon Dioxide Level 22 Chloride Level 107 Creatinine 1.72 H Direct Bilirubin 0.00 Eosinophils # 0.1 Eosinophils % 1.6 Globulin 3.20 Glucose Level 65 L Hematocrit 28.6 L Hemoglobin 9.5 L INR International Normalized Ratio 1.55 Indirect Bilirubin 0.0 Lymphocytes # 0.3 L Lymphocytes % 8.2 L Mean Corpuscular Hemoglobin 29.0 Mean Corpuscular Hemoglobin Concent 33.2 Mean Corpuscular Volume 87.2 Mean Platelet Volume 10.5 H Monocytes # 0.5 Monocytes % 14.8 H Neutrophils # 2.3 Neutrophils % 74.1 Nucleated Red Blood Cells # 0.0 Nucleated Red Blood Cells % 0.0 Platelet Count 21 #*L Potassium Level 3.7 Prothrombin Time 18.7 H Prothrombin Time Ratio 1.5 Red Blood Count 3.28 L Red Cell Distribution Width 17.8 H Sodium Level 139 Total Bilirubin 0.0 L Total Protein 4.6 L White Blood Count 3.0 #L Bedside Glucose 73 80 Medications Medications Current Medications Acetaminophen (Tylenol Liquid) 640 mg Q6H PRN GTB PAIN OR TEMP ABOVE 38C Last administered on 10/07/16 17:51; Admin Dose 640 MG; Start 09/06/16 at 22:30 Allopurinol (Zyloprim) 200 mg DAILY GTB Last administered on 10/14/16 09:01; Admin Dose 200 MG; Start 09/07/16 at 09:00 Ascorbic Acid (Vitamin C) 500 mg BID GTB Last administered on 10/14/16 09:01; Admin Dose 500 MG; Start 09/07/16 at 09:00 Calcitriol (Rocaltrol) 0.25 mcg DAILY GTB Last administered on 10/14/16 09:01 ; Admin Dose 0.25 MCG; Start 09/07/16 at 09:00 Chlorhexidine Gluconate (Peridex) 15 ml BID MM Last administered on 10/14/16 09:01; Admin Dose 15 ML; Start 09/07/16 at 09:00 Metoclopramide HCl (Reglan) 5 mg Q8H PRN GTB NAUSEA AND/OR VOMITING; Start 09/06 at 22:30 Sucralfate (Carafate Susp) 1 gm BID GTB Last administered on 10/14/16 09:01; Admin Dose 1 GM; Start 09/07/16 at 09:00 Ondansetron HCl (Zofran Inj) 4 mg Q6H PRN IV NAUSEA AND/OR VOMITING Last administered on 09/17/16 00:52; Admin Dose 4 MG; Start 09/06/16 at 22:30 Morphine Sulfate (morphine) 2 mg Q4H PRN IV PAIN LEVEL 7-10 Last administered on 10/12/16 21:55; Admin Dose 2 MG; Start 09/06/16 at 22:30 Metoclopramide HCl (Reglan) 5 mg Q6H PRN IV RESIDUALS > 100; Start 09/10/16 at 19:00 Clonidine (Catapres) 0.1 mg Q6H PRN GTB ELEVATED SYSTOLIC BP Last administered on 09/15/16 07:04; Admin Dose 0.1 MG; Start 09/13/16 at 23:00 Hydralazine HCl (Apresoline) 10 mg Q6H PRN IV ELEVATED SYSTOLIC BP Last administered on 09/15/16 02:08; Admin Dose 10 MG; Start 09/15/16 at 01:50 Collagenase (Santyl) 1 applic DAILY TOP Last administered on 10/14/16 09:06; Admin Dose 1 APPLIC; Start 09/18/16 at 09:00 Glycopyrrolate (Robinul) 1 mg Q8 GTB Last administered on 10/14/16 13:40; Admin Dose 1 MG; Start 09/19/16 at 09:30 Miscellaneous Information 1 ea NOTE XX ; Start 09/28/16 at 09:00 Glucose (Glutose) 15 gm Q15M PRN PO DECREASED GLUCOSE; Start 09/28/16 at 09:00 Glucose (Glutose) 22.5 gm Q15M PRN PO DECREASED GLUCOSE; Start 09/28/16 at 09:00 Dextrose (D50w Syringe) 25 ml Q15M PRN IV DECREASED GLUCOSE Last administered on 10/14/16 00:58; Admin Dose 25 ML; Start 09/28/16 at 09:00 Dextrose (D50w Syringe) 50 ml Q15M PRN IV DECREASED GLUCOSE; Start 09/28/16 at 09:00 Glucagon (Glucagen) 1 mg Q15M PRN IM DECREASED GLUCOSE; Start 09/28/16 at 09:00 Glucose (Glutose) 15 gm Q15M PRN BUCCAL DECREASED GLUCOSE; Start 09/28/16 at 09: 00 Insulin Aspart (Novolog Insulin Pen) NOVOLOG *MILD* ALGORI... Q6 SC Last administered on 10/11/16 12:27; Admin Dose 1 UNIT; Start 09/29/16 at 00:00 IV Flush (NS 10 ml) 10 ml PRN PRN IV FLUSH LINE; Start 09/29/16 at 20:30 Epoetin Jeffry 6000 units 6,000 units [email or web address]@17 SC Last administered on 18:38; Admin Dose 6,000 UNITS; Start 10/01/16 at 17:00 Vancomycin HCl 1.25 gm/Sodium Chloride 250 ml @ 83.333 mls/ hr Q96H IVPB Last administered on 10/13/16 17:17; Admin Dose 83.333 MLS/HR; Start 10/09/16 at 17: 00 Pantoprazole 80 mg/Sodium Chloride 100 ml @ 10 mls/hr Q10H IV Last administered on 10/14/16 10:15; Admin Dose 10 MLS/HR; Start 10/09/16 at 19:00 Norepinephrine 16 mg/Dextrose 500 ml @ 0 mls/hr TITRATE IV Last administered on 10/13/16 18:41; Admin Dose 9.37 MLS/HR; Start 10/10/16 at 08:30 Levetiracetam 500 mg/Sodium Chloride 105 ml @ 420 mls/hr Q12 IVPB Last administered on 10/14/16 09:01; Admin Dose 420 MLS/HR; Start 10/10/16 at 21:00 Dextrose/Sodium Chloride 1,000 ml @ 50 mls/hr Q20H IV Last administered on 03:44; Admin Dose 50 MLS/HR; Start 10/13/16 at 01:00 Colistimethate Sodium 75 mg/ Sodium Chloride 100 ml @ 200 mls/hr DAILY IVPB Last administered on 10/14/16 10:15; Admin Dose 200 MLS/HR; Start 10/13/16 at 16:00 Metronidazole (Flagyl 500 Mg (Pmx)) 100 ml @ 100 mls/hr Q8 IVPB Last administered on 10/14/16 13:40; Admin Dose 100 MLS/HR; Start 10/13/16 at 22:00 ARUN DIANA NP Oct 14, 2016 16:00
--- NOTE | 2016-10-14 16:23 | CONS ---
Date/Time of Note Date/Time of Note DATE: 10/14/16 TIME: 16:22 Assessment/Plan Assessment/Plan Additional Assessment/Plan 1. Acute kidney injury on possible chronic kidney disease unknown stage secondary to severe prerenal azotemia causing ischemic acute tubular necrosis in the setting of severe anemia.- continue to have Anuria with uremic symptoms and GI bleeding- started on HD during this admission 2. Severe anemia,s/p PRBC 3. Chronic respiratory failure, status post tracheostomy, on vent. 4. Pancytopenia. 5. History of a seizure disorder. 6. thrombocytopenia 7. Hypotension due to bleeding/sepsis PLAN: last HD was on Saturday, S/p Bioethics meeting, DNR, family wants to hold off HD after saturday so we will order next HD on Saturday will follow up Consultation Date/Type/Reason Admit Date/Time Sep 06, 2016 at 22:27 Initial Consult Date Aug Type of Consultation: NEPHROLOGY Referring Provider: FREDDY COELLO MD 24 HR Interval Summary Free Text/Dictation Code status DNR< BP stable, Plan for HD tomorrow, unchanged condition Exam/Review of Systems Vital Signs Vitals Vital Signs Date Time Temp Pulse Resp B/P Pulse Ox O2 Delivery O2 Flow Rate FiO2 10/14/16 14:45 121 24 89/54 100 10/14/16 14:00 Mechanical Ventilator 10/14/16 12:00 98.9 10/14/16 11:20 35 Intake and Output 10/13/16 10/13/16 10/14/16 15:00 23:00 07:00 Intake Total 657 ml 669.866 ml 415.8 ml Output Total 10 ml 5 ml Balance 647 ml 664.866 ml 415.8 ml Results Result Diagram: 10/14/16 0445 10/14/16 0445 Results 24 hrs Laboratory Tests Test 10/13/16 18:02 10/14/16 00:19 10/14/16 00:53 10/14/16 01:23 Bedside Glucose 74 57 L 68 L 116 Test 10/14/16 04:45 10/14/16 05:55 10/14/16 12:17 Alanine Aminotransferase (ALT/SGPT) 24 Albumin 1.4 L Albumin/Globulin Ratio 0.43 Alkaline Phosphatase 106 Anion Gap 14 Aspartate Amino Transf (AST/SGOT) 20 Basophils # 0.0 Basophils % 0.3 Blood Urea Nitrogen 74 H Calcium Level 7.4 L Carbon Dioxide Level 22 Chloride Level 107 Creatinine 1.72 H Direct Bilirubin 0.00 Eosinophils # 0.1 Eosinophils % 1.6 Globulin 3.20 Glucose Level 65 L Hematocrit 28.6 L Hemoglobin 9.5 L INR International Normalized Ratio 1.55 Indirect Bilirubin 0.0 Lymphocytes # 0.3 L Lymphocytes % 8.2 L Mean Corpuscular Hemoglobin 29.0 Mean Corpuscular Hemoglobin Concent 33.2 Mean Corpuscular Volume 87.2 Mean Platelet Volume 10.5 H Monocytes # 0.5 Monocytes % 14.8 H Neutrophils # 2.3 Neutrophils % 74.1 Nucleated Red Blood Cells # 0.0 Nucleated Red Blood Cells % 0.0 Platelet Count 21 #*L Potassium Level 3.7 Prothrombin Time 18.7 H Prothrombin Time Ratio 1.5 Red Blood Count 3.28 L Red Cell Distribution Width 17.8 H Sodium Level 139 Total Bilirubin 0.0 L Total Protein 4.6 L White Blood Count 3.0 #L Bedside Glucose 73 80 Medications Medications Current Medications Acetaminophen (Tylenol Liquid) 640 mg Q6H PRN GTB PAIN OR TEMP ABOVE 38C Last administered on 10/07/16 17:51; Admin Dose 640 MG; Start 09/06/16 at 22:30 Allopurinol (Zyloprim) 200 mg DAILY GTB Last administered on 10/14/16 09:01; Admin Dose 200 MG; Start 09/07/16 at 09:00 Ascorbic Acid (Vitamin C) 500 mg BID GTB Last administered on 10/14/16 09:01; Admin Dose 500 MG; Start 09/07/16 at 09:00 Calcitriol (Rocaltrol) 0.25 mcg DAILY GTB Last administered on 10/14/16 09:01 ; Admin Dose 0.25 MCG; Start 09/07/16 at 09:00 Chlorhexidine Gluconate (Peridex) 15 ml BID MM Last administered on 10/14/16 09:01; Admin Dose 15 ML; Start 09/07/16 at 09:00 Metoclopramide HCl (Reglan) 5 mg Q8H PRN GTB NAUSEA AND/OR VOMITING; Start 09/06 at 22:30 Sucralfate (Carafate Susp) 1 gm BID GTB Last administered on 10/14/16 09:01; Admin Dose 1 GM; Start 09/07/16 at 09:00 Ondansetron HCl (Zofran Inj) 4 mg Q6H PRN IV NAUSEA AND/OR VOMITING Last administered on 09/17/16 00:52; Admin Dose 4 MG; Start 09/06/16 at 22:30 Morphine Sulfate (morphine) 2 mg Q4H PRN IV PAIN LEVEL 7-10 Last administered on 10/12/16 21:55; Admin Dose 2 MG; Start 09/06/16 at 22:30 Metoclopramide HCl (Reglan) 5 mg Q6H PRN IV RESIDUALS > 100; Start 09/10/16 at 19:00 Clonidine (Catapres) 0.1 mg Q6H PRN GTB ELEVATED SYSTOLIC BP Last administered on 09/15/16 07:04; Admin Dose 0.1 MG; Start 09/13/16 at 23:00 Hydralazine HCl (Apresoline) 10 mg Q6H PRN IV ELEVATED SYSTOLIC BP Last administered on 09/15/16 02:08; Admin Dose 10 MG; Start 09/15/16 at 01:50 Collagenase (Santyl) 1 applic DAILY TOP Last administered on 10/14/16 09:06; Admin Dose 1 APPLIC; Start 09/18/16 at 09:00 Glycopyrrolate (Robinul) 1 mg Q8 GTB Last administered on 10/14/16 13:40; Admin Dose 1 MG; Start 09/19/16 at 09:30 Miscellaneous Information 1 ea NOTE XX ; Start 09/28/16 at 09:00 Glucose (Glutose) 15 gm Q15M PRN PO DECREASED GLUCOSE; Start 09/28/16 at 09:00 Glucose (Glutose) 22.5 gm Q15M PRN PO DECREASED GLUCOSE; Start 09/28/16 at 09:00 Dextrose (D50w Syringe) 25 ml Q15M PRN IV DECREASED GLUCOSE Last administered on 10/14/16 00:58; Admin Dose 25 ML; Start 09/28/16 at 09:00 Dextrose (D50w Syringe) 50 ml Q15M PRN IV DECREASED GLUCOSE; Start 09/28/16 at 09:00 Glucagon (Glucagen) 1 mg Q15M PRN IM DECREASED GLUCOSE; Start 09/28/16 at 09:00 Glucose (Glutose) 15 gm Q15M PRN BUCCAL DECREASED GLUCOSE; Start 09/28/16 at 09: 00 Insulin Aspart (Novolog Insulin Pen) NOVOLOG *MILD* ALGORI... Q6 SC Last administered on 10/11/16 12:27; Admin Dose 1 UNIT; Start 09/29/16 at 00:00 IV Flush (NS 10 ml) 10 ml PRN PRN IV FLUSH LINE; Start 09/29/16 at 20:30 Epoetin Jeffry 6000 units 6,000 units [id number]@17 SC Last administered on 18:38; Admin Dose 6,000 UNITS; Start 10/01/16 at 17:00 Vancomycin HCl 1.25 gm/Sodium Chloride 250 ml @ 83.333 mls/ hr Q96H IVPB Last administered on 10/13/16 17:17; Admin Dose 83.333 MLS/HR; Start 10/09/16 at 17: 00 Pantoprazole 80 mg/Sodium Chloride 100 ml @ 10 mls/hr Q10H IV Last administered on 10/14/16 10:15; Admin Dose 10 MLS/HR; Start 10/09/16 at 19:00 Norepinephrine 16 mg/Dextrose 500 ml @ 0 mls/hr TITRATE IV Last administered on 10/13/16 18:41; Admin Dose 9.37 MLS/HR; Start 10/10/16 at 08:30 Levetiracetam 500 mg/Sodium Chloride 105 ml @ 420 mls/hr Q12 IVPB Last administered on 10/14/16 09:01; Admin Dose 420 MLS/HR; Start 10/10/16 at 21:00 Dextrose/Sodium Chloride 1,000 ml @ 50 mls/hr Q20H IV Last administered on 03:44; Admin Dose 50 MLS/HR; Start 10/13/16 at 01:00 Colistimethate Sodium 75 mg/ Sodium Chloride 100 ml @ 200 mls/hr DAILY IVPB Last administered on 10/14/16 10:15; Admin Dose 200 MLS/HR; Start 10/13/16 at 16:00 Metronidazole (Flagyl 500 Mg (Pmx)) 100 ml @ 100 mls/hr Q8 IVPB Last administered on 3/19/17at 13:40; Admin Dose 100 MLS/HR; Start 10/13/16 at 22:00 KENIA TURCIOS MD Oct 14, 2016 16:23
--- NOTE | 2016-10-14 16:34 | PN ---
DATE: 10/14/2016 SUBJECTIVE: The patient is in ICU on ventilator support. His mental status is poor. He is noncogn itive. His breathing appears unlabored. PHYSICAL EXAMINATION: VITAL SIGNS: Show temperature 99.2, blood pressure 91/48, pulse rate of 114, respirations 12, pulse oximetry showing 98% saturation, with 40% inhaled oxygen concentration. He is on Levophed drip and the dose had to be increased to stabilize his blood pressure. NECK: Tracheal secretions are clear. No bleeding is seen. HEART: Regular rhythm. CHEST: Breath sounds are heard bilaterally, diminished in both the lower lung [place] with a few int ermittent rales and rhonchi. ABDOMEN: Soft. No distention is seen. EXTREMITIES: Show generalized edema. LABORATORY DATA: Show WBC 3000, hemoglobin 9.5, hematocrit 28.6, platelets decreased to 21,000. Th e chemistry panel shows sodium 139, potassium 3.7, bicarbonate of 22, BUN 74, creatinine 1.72, gluco se 65. The blood culture shows a carbapenem-resistant Klebsiella pneumoniae. IMPRESSION: 1. Septic shock, gram-negative sepsis from carbapenem-resistant Klebsiella pneumoniae. 3. Chronic respiratory failure, ventilator dependent. 4. History of seizure disorder. 5. Acute renal failure on dialysis. 6. Chronic encephalopathy. 7. Pancytopenia. 8. History of developmental delay. 9. Probable gastrointestinal bleed. PLAN: 1. Continue long-term ventilator support. 2. Continue pressor drugs to stabilize the blood pressure. 3. Continue antibiotics per ID home care consultant. 4. Continue dialysis per Nephrology. 5. Continue bronchodilator inhalation therapy. The patient's condition is progressively deteriorating and the treatment has been ineffective in sta bilizing the patient so far. This has been discussed in the bioethics committee and the patient has been made DNR, and probably the dialysis the interventions be discontinued tomorrow. Dictated By: VEENA STREETER MD SR/NIKOLAI Conf#: [id number] DID#: [id number]
--- NOTE | 2016-10-14 19:41 | PN ---
DATE: 10/14/2016 HEMATOLOGY FOLLOWUP HISTORY OF PRESENT ILLNESS: Mr. Wang is a 56-year-old male with multiple medical probl ems including mental retardation, ventilator dependent respiratory failure, ESRD on hemodialysis wit h recurrent GI bleeding. The patient also has been bedridden and has multiple decubiti. He recentl y developed severe thrombocytopenia. Hence, consultation was requested. I show the patient yesterd ay in the ICU and dictated a note and wrote orders but the dictated note was not taken. The patient's condition is stable in the sense that he is comfortable. He has no bleeding. PHYSICAL EXAMINATION: GENERAL: Shows moderately built male on ventilator. He is lying on his right side and does not res pond to verbal stimuli. VITAL SIGNS: He is afebrile. HEENT: Normocephalic. NECK: The patient has tracheostomy. CHEST: Symmetrical. LUNGS: Show distant breath sounds. HEART: sounds normal. ABDOMEN: Slightly distended. He has a G-tube. External genitalia normal and has a Brar catheter. EXTREMITIES: He appears to have contractures. He has decubitus on both heels and also on his sacra l area. LYMPH NODES: No peripheral lymphadenopathy. LABORATORY DATA: His WBC today is down to 3000 with 74% neutrophils, hemoglobin 9.5 and platelets d own to 21,000. His PT INR is 1.5 and creatinine is slightly increased to 1.72. His liver function tests are okay. IMPRESSION: 1. Severe thrombocytopenia, most likely secondary to sepsis. No definite evidence of DIC, but has positive HIT antibody. 2. Pancytopenia. 3. Respiratory failure, ventilator dependent. 4. ESRD on hemodialysis. PLAN: This patient's thrombocytopenia is most likely secondary to sepsis. His HIT antibody is of lo w titer. Serotonin has been sent and is still pending. His platelet count today is 21,000, but he does not have any active bleeding. His hemoglobin is stable. His PT INR is 1.5. I gave him vitami n K yesterday, but had no improvement in his protime. He also has multiple chronic medical problems including the decubiti and renal failure. We will con tinue ____ treatment. We could repeat his DIC panel again. Dictated By: JARRED GARZON MD PC/NTS Conf#: [id number] [facility]#: [id number]
[2016-10-14] MEDS: DEXTROSE 10% 1,000 ML IV SCH (20:23)
[2016-10-15] VITALS (97 sets, daily range): BP systolic 66–153; BP diastolic 33–70; PULSE 105–122; RESP 11–31
[2016-10-15] MEDS: DEXTROSE 50% 50 ML SYRINGE IV PRN ×3 (00:34→12:13)
[2016-10-15] MEDS: LEVALBUTEROL (HFA) 15 GM INHALER INH SCH ×4 (01:09→20:45)
[2016-10-15] MEDS: IPRATROPIUM (HFA) 12.9 GM INHALER INH SCH ×4 (01:09→20:45)
[2016-10-15 05:03] LABS: ADD SCAN DIFF NO
[2016-10-15 05:16] LABS: PLATELET COUNT 11 10^3/UL (140-415)
[2016-10-15 05:46] LABS: INR 1.89; PROTIME 21.9 Sec (12.2-14.2); PT RATIO 1.7
[2016-10-15] MEDS: GLYCOPYRROLATE 1 MG TAB GTB SCH ×3 (05:51→21:49)
[2016-10-15] MEDS: metroNIDAZOLE 500 MG/NS (PMX) 100 ML IVPB SCH ×3 (05:51→21:49)
[2016-10-15] MEDS: PANTOPRAZOLE IV 80 MG in SOD CHLORIDE 0.9% 100 ML IV SCH (05:52)
[2016-10-15] MEDS: INSULIN ASPART [NOVOLOG] 3 ML PEN SC SCH ×5 (05:59→23:53)
[2016-10-15 06:00] LABS: THROMBIN TIME 21.4 SEC (13.8-19.1)
[2016-10-15 06:03] LABS: PARTIAL THROMBOPLASTIN TIME 53.9 Sec (25.0-35.0)
[2016-10-15 07:01] LABS: D-DIMER > 10000.00 ng/ml (<460)
[2016-10-15] MEDS: SEVELAMER CARBONATE 2.4 GM PKT GTB SCH ×3 (07:35→17:35)
[2016-10-15 07:48] LABS: FIBRIN SPLIT PRODUCT <10 ug/ml (<10)
--- NOTE | 2016-10-15 07:53 | PN ---
DATE: 10/13/2016 HISTORY OF PRESENT ILLNESS: Mr. Wang is a 56-year-old male with multiple medical probl ems including gram-negative septicemia, a large decubitus and history of encephalopathy. The patien t has been basically bedridden. He is on multiple antibiotics. In addition, the patient has pancyto penia with a WBC of 4300 today with 80% neutrophils, hemoglobin 9.3 with a normal MCV and platelet c ount of 31,000. The patient's platelet count yesterday was 38,000, and he had a platelet transfusio n. Even then, it has been down. He has no evidence of any gross bleeding now, even though he has a history of GI bleeding. It should be noted that, on 10/04/2016, his PT/INR was 1.59 with fibrinoge n 215 and PTT 45. PAST HISTORY: He has history of chronic respiratory failure and this will get ventilation, ventilat or dependent. Also has a history of seizure disorder and encephalopathy and renal failure. Also mercer s a history of GI bleed. PHYSICAL EXAMINATION: GENERAL: Shows a moderately built male who has mild anasarca. He is intubated. Today, he has an N G tube. CHEST: Symmetrical. LUNGS: Show distant breath sounds. HEART: Sinus tachycardia. ABDOMEN: He has a G-tube. Abdomen is somewhat edematous. He also has a large sacral decubitus. EXTREMITIES: Lower extremities, he appears to have contractures. LYMPH NODES: No peripheral lymphadenopathy. LABORATORY DATA: His creatinine now is 1.5. His LFTs 2 weeks ago were unremarkable except his globu karolina was 3.9. IMPRESSION: 1. Pancytopenia probably secondary to sepsis, rule out also mild disseminated intravascular coagula tion (DIC), rule out secondary to medications. 2. History of recurrent gastrointestinal bleed. 3. Septicemia. 4. Large decubitus. 5. History of seizures and encephalopathy. PLAN: This patient has numerous medical problems. His reason for pancytopenia is certainly multifa ctorial including he could also maybe have hypersplenism. His cytopenia panel is unremarkable. Mos t likely his globulin is high because of chronic inflammatory disease. I recommend we repeat his CM P and we will also get a serum protein electrophoresis. I recommend we transfuse him only if he ble eds. I will give him vitamin K and repeat his protime tomorrow. His prognosis is quite guarded. Dictated By: JARRED FREIRE/NIKOLAI Conf#: [id number] [facility]#: [id number]
--- NOTE | 2016-10-15 08:23 | CONS ---
Date/Time of Note Date/Time of Note DATE: 10/15/16 TIME: 08:23 Assessment/Plan Assessment/Plan Additional Assessment/Plan 1. Acute kidney injury on possible chronic kidney disease unknown stage secondary to severe prerenal azotemia causing ischemic acute tubular necrosis in the setting of severe anemia.- continue to have Anuria with uremic symptoms and GI bleeding- started on HD during this admission 2. Severe anemia,s/p PRBC 3. Chronic respiratory failure, status post tracheostomy, on vent. 4. Pancytopenia. 5. History of a seizure disorder. 6. thrombocytopenia 7. Hypotension due to bleeding/sepsis PLAN: last HD was on Saturday, S/p Bioethics meeting, DNR, plan for HD today then further plan for Goals of care would be as per family meeting and Primary care service will follow up Consultation Date/Type/Reason Admit Date/Time Sep 06, 2016 at 22:27 Initial Consult Date Aug Type of Consultation: NEPHROLOGY Referring Provider: FREDDY COELLO MD 24 HR Interval Summary Free Text/Dictation SBP 105-53, no acute events, DNR status, Afebrile Exam/Review of Systems Vital Signs Vitals Vital Signs Date Time Temp Pulse Resp B/P Pulse Ox O2 Delivery O2 Flow Rate FiO2 10/15/16 07:21 115 25 100 35 10/15/16 07:16 98.5 105/53 Mechanical Ventilator Intake and Output 10/14/16 10/14/16 10/15/16 14:59 22:59 06:59 Intake Total 916 ml 790.7 ml 684.6 ml Output Total 5 ml 120 ml Balance 911 ml 670.7 ml 684.6 ml Exam GENERAL: Chronically ill-appearing, elderly man who is lying comfortably in bed. Patient is nonverbal, noncommunicative. HEENT: Head atraumatic, normocephalic. Sclerae anicteric. Buccal mucosa dry. NECK: Obese. CHEST: Rise symmetrical. Breath sounds diminished. HEART: S1, S2. ABDOMEN: Distended. Bowel tones hypoactive. Extremities contractured. Skin with severe anasarca and multiple unstageable decubitus with foul odor. Results Result Diagram: 10/15/16 0330 10/14/16 0445 Results 24 hrs Laboratory Tests Test 10/14/16 12:17 10/14/16 18:16 10/15/16 00:23 10/15/16 01:02 Bedside Glucose 80 71 55 L 101 Test 10/15/16 03:30 Activated Partial Thromboplast Time 53.9 H D-Dimer > 81539.00 H Fibrinogen 129.0 #L INR International Normalized Ratio 1.89 Plasma Fibrin Degradation Products <10 Platelet Count 11 *L Prothrombin Time 21.9 H Prothrombin Time Ratio 1.7 Thrombin Time 21.4 H Medications Medications Current Medications Acetaminophen (Tylenol Liquid) 640 mg Q6H PRN GTB PAIN OR TEMP ABOVE 38C Last administered on 10/07/16 17:51; Admin Dose 640 MG; Start 09/06/16 at 22:30 Allopurinol (Zyloprim) 200 mg DAILY GTB Last administered on 10/14/16 09:01; Admin Dose 200 MG; Start 09/07/16 at 09:00 Ascorbic Acid (Vitamin C) 500 mg BID GTB Last administered on 10/14/16 20:56; Admin Dose 500 MG; Start 09/07/16 at 09:00 Calcitriol (Rocaltrol) 0.25 mcg DAILY GTB Last administered on 10/14/16 09:01 ; Admin Dose 0.25 MCG; Start 09/07/16 at 09:00 Chlorhexidine Gluconate (Peridex) 15 ml BID MM Last administered on 10/14/16 20:56; Admin Dose 15 ML; Start 09/07/16 at 09:00 Metoclopramide HCl (Reglan) 5 mg Q8H PRN GTB NAUSEA AND/OR VOMITING; Start 09/06 at 22:30 Sucralfate (Carafate Susp) 1 gm BID GTB Last administered on 10/14/16 20:56; Admin Dose 1 GM; Start 09/07/16 at 09:00 Ondansetron HCl (Zofran Inj) 4 mg Q6H PRN IV NAUSEA AND/OR VOMITING Last administered on 09/17/16 00:52; Admin Dose 4 MG; Start 09/06/16 at 22:30 Morphine Sulfate (morphine) 2 mg Q4H PRN IV PAIN LEVEL 7-10 Last administered on 10/12/16 21:55; Admin Dose 2 MG; Start 09/06/16 at 22:30 Metoclopramide HCl (Reglan) 5 mg Q6H PRN IV RESIDUALS > 100; Start 09/10/16 at 19:00 Clonidine (Catapres) 0.1 mg Q6H PRN GTB ELEVATED SYSTOLIC BP Last administered on 09/15/16 07:04; Admin Dose 0.1 MG; Start 09/13/16 at 23:00 Hydralazine HCl (Apresoline) 10 mg Q6H PRN IV ELEVATED SYSTOLIC BP Last administered on 09/15/16 02:08; Admin Dose 10 MG; Start 09/15/16 at 01:50 Collagenase (Santyl) 1 applic DAILY TOP Last administered on 10/14/16 09:06; Admin Dose 1 APPLIC; Start 09/18/16 at 09:00 Glycopyrrolate (Robinul) 1 mg Q8 GTB Last administered on 10/15/16 05:51; Admin Dose 1 MG; Start 09/19/16 at 09:30 Miscellaneous Information 1 ea NOTE XX ; Start 09/28/16 at 09:00 Glucose (Glutose) 15 gm Q15M PRN PO DECREASED GLUCOSE; Start 09/28/16 at 09:00 Glucose (Glutose) 22.5 gm Q15M PRN PO DECREASED GLUCOSE; Start 09/28/16 at 09:00 Dextrose (D50w Syringe) 25 ml Q15M PRN IV DECREASED GLUCOSE Last administered on 10/15/16 06:04; Admin Dose 25 ML; Start 09/28/16 at 09:00 Dextrose (D50w Syringe) 50 ml Q15M PRN IV DECREASED GLUCOSE; Start 09/28/16 at 09:00 Glucagon (Glucagen) 1 mg Q15M PRN IM DECREASED GLUCOSE; Start 09/28/16 at 09:00 Glucose (Glutose) 15 gm Q15M PRN BUCCAL DECREASED GLUCOSE; Start 09/28/16 at 09: 00 Insulin Aspart (Novolog Insulin Pen) NOVOLOG *MILD* ALGORI... Q6 SC Last administered on 10/11/16 12:27; Admin Dose 1 UNIT; Start 09/29/16 at 00:00 IV Flush (NS 10 ml) 10 ml PRN PRN IV FLUSH LINE; Start 09/29/16 at 20:30 Epoetin Jeffry 6000 units 6,000 units [email or web address]@17 SC Last administered on 18:38; Admin Dose 6,000 UNITS; Start 10/01/16 at 17:00 Vancomycin HCl 1.25 gm/Sodium Chloride 250 ml @ 83.333 mls/ hr Q96H IVPB Last administered on 10/13/16 17:17; Admin Dose 83.333 MLS/HR; Start 10/09/16 at 17: 00 Pantoprazole 80 mg/Sodium Chloride 100 ml @ 10 mls/hr Q10H IV Last administered on 10/15/16 05:52; Admin Dose 10 MLS/HR; Start 10/09/16 at 19:00 Norepinephrine 16 mg/Dextrose 500 ml @ 0 mls/hr TITRATE IV Last administered on 10/14/16 20:42; Admin Dose 18.75 MLS/HR; Start 10/10/16 at 08:30 Levetiracetam 500 mg/Sodium Chloride 105 ml @ 420 mls/hr Q12 IVPB Last administered on 10/14/16 20:56; Admin Dose 420 MLS/HR; Start 10/10/16 at 21:00 Colistimethate Sodium 75 mg/ Sodium Chloride 100 ml @ 200 mls/hr DAILY IVPB Last administered on 10/14/16 10:15; Admin Dose 200 MLS/HR; Start 10/13/16 at 16:00 Metronidazole 100 ml @ 100 mls/hr Q8 IVPB Last administered on 10/15/16 05:51 ; Admin Dose 100 MLS/HR; Start 10/13/16 at 22:00 Dextrose (D10w) 1,000 ml @ 50 mls/hr Q20H IV Last administered on 10/14/16 20 :23; Admin Dose 50 MLS/HR; Start 10/14/16 at 20:00 KENIA TURCIOS MD Oct 15, 2016 08:23
[2016-10-15] MEDS: CALCITRIOL 0.25 MCG CAP GTB SCH (09:37)
[2016-10-15] MEDS: CHLORHEXIDINE GLUCONATE 15 ML UD CUP MM SCH ×2 (09:37→21:08)
[2016-10-15] MEDS: LEVETIRACETAM IV 500 MG in SOD CHLORIDE 0.9% 100 ML IVPB SCH ×2 (09:37→21:08)
[2016-10-15] MEDS: ASCORBIC ACID 500 MG TAB GTB SCH ×2 (09:37→21:08)
[2016-10-15] MEDS: ALLOPURINOL 100 MG TAB GTB SCH (09:37)
[2016-10-15] MEDS: SUCRALFATE (100 MG/ML) 10ML CUP GTB SCH ×2 (09:37→21:08)
[2016-10-15] MEDS: COLLAGENASE 30 GM TUBE TOP SCH (09:38)
[2016-10-15] MEDS: COLISTIMETHATE 75 MG in SOD CHLORIDE 0.9% 100 ML IVPB SCH (09:42)
--- NOTE | 2016-10-15 11:17 | PN ---
Date/Time of Note Date/Time of Note DATE: 10/15/16 TIME: 11:14 Assessment/Plan VTE Prophylaxis VTE Prophylaxis Intervention: other (per pmd) Lines/Catheters IV Catheter Type (from Nrsg): PICC Line Central line still needed: No (per pmd) Urinary Cath still in place: No Assessment/Plan Chief Complaint/Hosp Course gi bleeding stable ehics committee recommended no aggressive measures egd cancelled Problems: Assessment/Plan stable gi bleeding no aggressive w/u plan will sign off thanks Subjective 24 Hr Interval Summary Free Text/Dictation no change no complaints no active gi bled Exam/Review of Systems Vital Signs Vitals Vital Signs Date Time Temp Pulse Resp B/P Pulse Ox O2 Delivery O2 Flow Rate FiO2 10/15/16 11:09 109 24 98 30 10/15/16 08:45 104/51 Mechanical Ventilator 10/15/16 07:16 98.5 Intake and Output 10/14/16 10/14/16 10/15/16 14:59 22:59 06:59 Intake Total 916 ml 790.7 ml 684.6 ml Output Total 5 ml 120 ml Balance 911 ml 670.7 ml 684.6 ml Exam unresponsive bp 94/69 puls 95 abd soft ng no bleeding hb 9.2 Results Result Diagram: 10/15/16 0330 10/14/16 0445 Results 24 hrs Laboratory Tests Test 10/14/16 12:17 10/14/16 18:16 10/15/16 00:23 10/15/16 01:02 Bedside Glucose 80 71 55 L 101 Test 10/15/16 03:30 10/15/16 09:21 Activated Partial Thromboplast Time 53.9 H D-Dimer > 14312.00 H Fibrinogen 129.0 #L INR International Normalized Ratio 1.89 Plasma Fibrin Degradation Products <10 Platelet Count 11 *L Prothrombin Time 21.9 H Prothrombin Time Ratio 1.7 Thrombin Time 21.4 H Lab Scanned Report REFERENCE LAB Medications Medications Current Medications Acetaminophen (Tylenol Liquid) 640 mg Q6H PRN GTB PAIN OR TEMP ABOVE 38C Last administered on 10/07/16 17:51; Admin Dose 640 MG; Start 09/06/16 at 22:30 Allopurinol (Zyloprim) 200 mg DAILY GTB Last administered on 10/15/16 09:37; Admin Dose 200 MG; Start 09/07/16 at 09:00 Ascorbic Acid (Vitamin C) 500 mg BID GTB Last administered on 10/15/16 09:37; Admin Dose 500 MG; Start 09/07/16 at 09:00 Calcitriol (Rocaltrol) 0.25 mcg DAILY GTB Last administered on 10/15/16 09:37 ; Admin Dose 0.25 MCG; Start 09/07/16 at 09:00 Chlorhexidine Gluconate (Peridex) 15 ml BID MM Last administered on 10/15/16 09:37; Admin Dose 15 ML; Start 09/07/16 at 09:00 Metoclopramide HCl (Reglan) 5 mg Q8H PRN GTB NAUSEA AND/OR VOMITING; Start 09/06 at 22:30 Sucralfate (Carafate Susp) 1 gm BID GTB Last administered on 10/15/16 09:37; Admin Dose 1 GM; Start 09/07/16 at 09:00 Ondansetron HCl (Zofran Inj) 4 mg Q6H PRN IV NAUSEA AND/OR VOMITING Last administered on 09/17/16 00:52; Admin Dose 4 MG; Start 09/06/16 at 22:30 Morphine Sulfate (morphine) 2 mg Q4H PRN IV PAIN LEVEL 7-10 Last administered on 10/12/16 21:55; Admin Dose 2 MG; Start 09/06/16 at 22:30 Metoclopramide HCl (Reglan) 5 mg Q6H PRN IV RESIDUALS > 100; Start 09/10/16 at 19:00 Clonidine (Catapres) 0.1 mg Q6H PRN GTB ELEVATED SYSTOLIC BP Last administered on 09/15/16 07:04; Admin Dose 0.1 MG; Start 09/13/16 at 23:00 Hydralazine HCl (Apresoline) 10 mg Q6H PRN IV ELEVATED SYSTOLIC BP Last administered on 09/15/16 02:08; Admin Dose 10 MG; Start 09/15/16 at 01:50 Collagenase (Santyl) 1 applic DAILY TOP Last administered on 10/15/16 09:38; Admin Dose 1 APPLIC; Start 09/18/16 at 09:00 Glycopyrrolate (Robinul) 1 mg Q8 GTB Last administered on 10/15/16 05:51; Admin Dose 1 MG; Start 09/19/16 at 09:30 Miscellaneous Information 1 ea NOTE XX ; Start 09/28/16 at 09:00 Glucose (Glutose) 15 gm Q15M PRN PO DECREASED GLUCOSE; Start 09/28/16 at 09:00 Glucose (Glutose) 22.5 gm Q15M PRN PO DECREASED GLUCOSE; Start 09/28/16 at 09:00 Dextrose (D50w Syringe) 25 ml Q15M PRN IV DECREASED GLUCOSE Last administered on 10/15/16 06:04; Admin Dose 25 ML; Start 09/28/16 at 09:00 Dextrose (D50w Syringe) 50 ml Q15M PRN IV DECREASED GLUCOSE; Start 09/28/16 at 09:00 Glucagon (Glucagen) 1 mg Q15M PRN IM DECREASED GLUCOSE; Start 09/28/16 at 09:00 Glucose (Glutose) 15 gm Q15M PRN BUCCAL DECREASED GLUCOSE; Start 09/28/16 at 09: 00 Insulin Aspart (Novolog Insulin Pen) NOVOLOG *MILD* ALGORI... Q6 SC Last administered on 10/11/16 12:27; Admin Dose 1 UNIT; Start 09/29/16 at 00:00 IV Flush (NS 10 ml) 10 ml PRN PRN IV FLUSH LINE; Start 09/29/16 at 20:30 Epoetin Jeffry 6000 units 6,000 units MoWeFr@17 SC Last administered on 18:38; Admin Dose 6,000 UNITS; Start 10/01/16 at 17:00 Vancomycin HCl 1.25 gm/Sodium Chloride 250 ml @ 83.333 mls/ hr Q96H IVPB Last administered on 10/13/16 17:17; Admin Dose 83.333 MLS/HR; Start 10/09/16 at 17: 00 Norepinephrine 16 mg/Dextrose 500 ml @ 0 mls/hr TITRATE IV Last administered on 10/14/16 20:42; Admin Dose 18.75 MLS/HR; Start 10/10/16 at 08:30 Levetiracetam 500 mg/Sodium Chloride 105 ml @ 420 mls/hr Q12 IVPB Last administered on 10/15/16 09:37; Admin Dose 420 MLS/HR; Start 10/10/16 at 21:00 Colistimethate Sodium 75 mg/ Sodium Chloride 100 ml @ 200 mls/hr DAILY IVPB Last administered on 10/15/16 09:42; Admin Dose 200 MLS/HR; Start 10/13/16 at 16:00 Metronidazole 100 ml @ 100 mls/hr Q8 IVPB Last administered on 10/15/16 05:51 ; Admin Dose 100 MLS/HR; Start 10/13/16 at 22:00 Dextrose (D10w) 1,000 ml @ 50 mls/hr Q20H IV Last administered on 10/14/16 20 :23; Admin Dose 50 MLS/HR; Start 10/14/16 at 20:00 GEORGE DOS SANTOS MD Oct 15, 2016 11:17
--- NOTE | 2016-10-15 13:58 | PN ---
Date/Time of Note Date/Time of Note DATE: 10/15/16 TIME: 13:56 Assessment/Plan VTE Prophylaxis VTE Prophylaxis Intervention: SCD's Lines/Catheters [facility] P[facility] Line Central line still needed: Yes Urinary Cath still in place: No Assessment/Plan Chief Complaint/Hosp Course ASSESSMENT AND PLAN: - Shock hypovolemic, possibly septic. Continue ICU care, IVF, pressors, blood transfusion. -Severe anemia anemia secondary to GI bleed. Continue Protonix drip. Plan for possible endoscopy when patient is more stable. Continue blood transfusion. - Heparin-induced thrombocytopenia, hold heparin, patient status post platelets transfusion. Dr. Coughlin is following in hematology consultation. - GNR bacteremia, status of the PICC line exchange. - Severe anemia 2 GI bleed. Continue to monitor hemoglobin and hematocrit. Dr. Singh is following in gastroenterology consultation. - Acute kidney failure on chronic kidney disease. Continue to monitor BUN and creatinine. Dr. Mk Purdy is following in nephrology consultation. Patient with worsening renal function. Started on Hemodialysis during this admission. - Pancytopenia 2 chronic inflammation and sepsis. - Ventilator-dependent respiratory failure. Dr. Aragon is following in pulmonology consultation. Continue ventilator support, bronchodilators. - HCAP on admission. Status post treatment. - Dysphagia with PEG. - History of seizure disorder. Continue patient on Keppra. - Diastolic dysfunction congestive heart failure with preserved ejection fraction of 60%. - S/p sepsis on admission. Dr. Guy is following patient in infectious disease consultation. - Status post cerebrovascular accident, status post craniotomy. - Mental retardation. - DNR status Per ethics committee hemodialysis and and other aggressive interventions will be stopped today. Continue Protonix for peptic ulcer disease prophylaxis. Further recommendations based on clinical course. Plan of care discussed with Dr. Mcelroy. Problems: Subjective 24 Hr Interval Summary Free Text/Dictation Patient is currently on pressors and vent support, obtunded. Exam/Review of Systems Vital Signs Vitals Vital Signs Date Time Temp Pulse Resp B/P Pulse Ox O2 Delivery O2 Flow Rate FiO2 10/15/16 13:33 117 21 99 30 10/15/16 12:30 66/44 Mechanical Ventilator 10/15/16 11:00 98.1 Intake and Output 10/14/16 10/14/16 10/15/16 15:00 23:00 07:00 Intake Total 920 ml 790.4 ml 605.9 ml Output Total 5 ml 120 ml Balance 915 ml 670.4 ml 605.9 ml Exam Constitutional: alert, well developed Head: atraumatic, normocephalic Eyes: nl conjunctiva ENMT: nl external ears & nose Neck: jvd, supple Respiratory: clear to auscultation Cardiovascular: regular rate and rhythm Gastrointestinal: nl liver, spleen, soft Genitourinary - Male: nl penis, other ( Brar catheter ) Musculoskeletal: nl extremities to inspection, Extremities: normal pulses, bilateral LE s/p vascular intervention Results Result Diagram: 10/15/16 0330 10/14/16 0445 Results 24 hrs Laboratory Tests Test 10/14/16 18:16 10/15/16 00:23 10/15/16 01:02 10/15/16 03:30 Bedside Glucose 71 55 L 101 Activated Partial Thromboplast Time 53.9 H D-Dimer > 56563.00 H Fibrinogen 129.0 #L INR International Normalized Ratio 1.89 Plasma Fibrin Degradation Products <10 Platelet Count 11 *L Prothrombin Time 21.9 H Prothrombin Time Ratio 1.7 Thrombin Time 21.4 H Test 10/15/16 05:58 10/15/16 09:21 10/15/16 12:08 10/15/16 12:30 Bedside Glucose 68 L 65 L 99 Lab Scanned Report REFERENCE LAB Test 10/15/16 12:47 Bedside Glucose 80 Medications Medications Current Medications Acetaminophen (Tylenol Liquid) 640 mg Q6H PRN GTB PAIN OR TEMP ABOVE 38C Last administered on 10/07/16 17:51; Admin Dose 640 MG; Start 09/06/16 at 22:30 Allopurinol (Zyloprim) 200 mg DAILY GTB Last administered on 10/15/16 09:37; Admin Dose 200 MG; Start 09/07/16 at 09:00 Ascorbic Acid (Vitamin C) 500 mg BID GTB Last administered on 10/15/16 09:37; Admin Dose 500 MG; Start 09/07/16 at 09:00 Calcitriol (Rocaltrol) 0.25 mcg DAILY GTB Last administered on 10/15/16 09:37 ; Admin Dose 0.25 MCG; Start 09/07/16 at 09:00 Chlorhexidine Gluconate (Peridex) 15 ml BID MM Last administered on 10/15/16 09:37; Admin Dose 15 ML; Start 09/07/16 at 09:00 Metoclopramide HCl (Reglan) 5 mg Q8H PRN GTB NAUSEA AND/OR VOMITING; Start 09/06 at 22:30 Sucralfate (Carafate Susp) 1 gm BID GTB Last administered on 10/15/16 09:37; Admin Dose 1 GM; Start 09/07/16 at 09:00 Ondansetron HCl (Zofran Inj) 4 mg Q6H PRN IV NAUSEA AND/OR VOMITING Last administered on 09/17/16 00:52; Admin Dose 4 MG; Start 09/06/16 at 22:30 Morphine Sulfate (morphine) 2 mg Q4H PRN IV PAIN LEVEL 7-10 Last administered on 10/12/16 21:55; Admin Dose 2 MG; Start 09/06/16 at 22:30 Metoclopramide HCl (Reglan) 5 mg Q6H PRN IV RESIDUALS > 100; Start 09/10/16 at 19:00 Clonidine (Catapres) 0.1 mg Q6H PRN GTB ELEVATED SYSTOLIC BP Last administered on 09/15/16 07:04; Admin Dose 0.1 MG; Start 09/13/16 at 23:00 Hydralazine HCl (Apresoline) 10 mg Q6H PRN IV ELEVATED SYSTOLIC BP Last administered on 09/15/16 02:08; Admin Dose 10 MG; Start 09/15/16 at 01:50 Collagenase (Santyl) 1 applic DAILY TOP Last administered on 10/15/16 09:38; Admin Dose 1 APPLIC; Start 09/18/16 at 09:00 Glycopyrrolate (Robinul) 1 mg Q8 GTB Last administered on 10/15/16 05:51; Admin Dose 1 MG; Start 09/19/16 at 09:30 Miscellaneous Information 1 ea NOTE XX ; Start 09/28/16 at 09:00 Glucose (Glutose) 15 gm Q15M PRN PO DECREASED GLUCOSE; Start 09/28/16 at 09:00 Glucose (Glutose) 22.5 gm Q15M PRN PO DECREASED GLUCOSE; Start 09/28/16 at 09:00 Dextrose (D50w Syringe) 25 ml Q15M PRN IV DECREASED GLUCOSE Last administered on 10/15/16 12:13; Admin Dose 25 ML; Start 09/28/16 at 09:00 Dextrose (D50w Syringe) 50 ml Q15M PRN IV DECREASED GLUCOSE; Start 09/28/16 at 09:00 Glucagon (Glucagen) 1 mg Q15M PRN IM DECREASED GLUCOSE; Start 09/28/16 at 09:00 Glucose (Glutose) 15 gm Q15M PRN BUCCAL DECREASED GLUCOSE; Start 09/28/16 at 09: 00 Insulin Aspart (Novolog Insulin Pen) NOVOLOG *MILD* ALGORI... Q6 SC Last administered on 10/11/16 12:27; Admin Dose 1 UNIT; Start 09/29/16 at 00:00 IV Flush (NS 10 ml) 10 ml PRN PRN IV FLUSH LINE; Start 09/29/16 at 20:30 Epoetin Jeffry 6000 units 6,000 units [id number]@17 SC Last administered on 18:38; Admin Dose 6,000 UNITS; Start 10/01/16 at 17:00 Vancomycin HCl 1.25 gm/Sodium Chloride 250 ml @ 83.333 mls/ hr Q96H IVPB Last administered on 10/13/16 17:17; Admin Dose 83.333 MLS/HR; Start 10/09/16 at 17: 00 Norepinephrine 16 mg/Dextrose 500 ml @ 0 mls/hr TITRATE IV Last administered on 10/14/16 20:42; Admin Dose 18.75 MLS/HR; Start 10/10/16 at 08:30 Levetiracetam 500 mg/Sodium Chloride 105 ml @ 420 mls/hr Q12 IVPB Last administered on 10/15/16 09:37; Admin Dose 420 MLS/HR; Start 10/10/16 at 21:00 Colistimethate Sodium 75 mg/ Sodium Chloride 100 ml @ 200 mls/hr DAILY IVPB Last administered on 10/15/16 09:42; Admin Dose 200 MLS/HR; Start 10/13/16 at 16:00 Metronidazole 100 ml @ 100 mls/hr Q8 IVPB Last administered on 10/15/16 05:51 ; Admin Dose 100 MLS/HR; Start 10/13/16 at 22:00 Dextrose (D10w) 1,000 ml @ 50 mls/hr Q20H IV Last administered on 10/14/16t 20 :23; Admin Dose 50 MLS/HR; Start 10/14/16 at 20:00 QUIN ORTIZ Oct 15, 2016 13:58
--- NOTE | 2016-10-15 13:59 | CONS ---
Date/Time of Note Date/Time of Note DATE: 10/15/16 TIME: 13:52 Assessment/Plan Assessment/Plan Chief Complaint/Hosp Course 56 year old male with mental retardation, ventilator dependent respiratory failure, ESRD on HD with continue GI bleed. Pt's GI bleed has subsided.Family meeting to be held given patient's poor prognosis. # Normocytic anemia, likely multifactorial due to GI bleed, chronic kidney disease, likely chronic inflammation - Hg is currently stable - Iron panel suggests anemia of chronic inflammation, high ferritin as expected. ; B12/folate WNL, LDH not elevated, retic count inappropriately low - Continue epo. - if we are still continuing aggressive measures, would keep Hg> 8. Will await family's decision after meeting # Thrombocytopenia,- platelet continue to fall. 11 today. Pt is HIT positive but optical density low still making HIT unlikely. -Possible contribution due to sepsis as well particularly in the setting of recent fever, and now with GNR bacteremia. DIC panel may suggest component of DIC with prolongs coags and elevated D dimer with rare schistocytes on smear though fibrin split products not elevated. HIV and Hep panel negative. Peripheral smear reviewed by pathology and confirms decreased platelet count, no microangiopathic changes, rare schistocytes, occasional metamyelocytes, mild bandemia, and no blasts. Abdominal US was technically limited study due to patient's inability to cooperate demonstrating mild hepatomegaly with a slightly coarsened echotexture which may indicate steatosis/hepatic cellular disease. - will transfuse platelets if evidence of active GI bleed - NO HEPARIN for patient GI bleed and thrombocytopenia Problems: Consultation Date/Type/Reason Admit Date/Time Sep 06, 2016 at 22:27 Initial Consult Date 10/03/16 Type of Consultation: Hematology Reason for Consultation anemia/ thrombocytopenia/ GI bleed Referring Provider: FREDDY COELLO MD 24 HR Interval Summary Free Text/Dictation per nurse, pt is no longer GI bleeding Exam/Review of Systems Vital Signs Vitals Vital Signs Date Time Temp Pulse Resp B/P Pulse Ox O2 Delivery O2 Flow Rate FiO2 10/15/16 13:33 117 21 99 30 10/15/16 12:30 66/44 Mechanical Ventilator 10/15/16 11:00 98.1 Intake and Output 10/14/16 10/14/16 10/15/16 15:00 23:00 07:00 Intake Total 920 ml 790.4 ml 605.9 ml Output Total 5 ml 120 ml Balance 915 ml 670.4 ml 605.9 ml Exam Constitutional: frail, non-verbal ENMT: other (trach to vent) Neck: non-tender, supple Respiratory: diminished breath sounds Cardiovascular: other (tachycardia) Gastrointestinal: soft Musculoskeletal: nl extremities to inspection, nl gait and stance Extremities: normal pulses Results Result Diagram: 10/15/16 0330 10/14/16 0445 Results 24 hrs Laboratory Tests Test 10/14/16 18:16 10/15/16 00:23 10/15/16 01:02 10/15/16 03:30 Bedside Glucose 71 55 L 101 Activated Partial Thromboplast Time 53.9 H D-Dimer > 53215.00 H Fibrinogen 129.0 #L INR International Normalized Ratio 1.89 Plasma Fibrin Degradation Products <10 Platelet Count 11 *L Prothrombin Time 21.9 H Prothrombin Time Ratio 1.7 Thrombin Time 21.4 H Test 10/15/16 05:58 10/15/16 09:21 10/15/16 12:08 10/15/16 12:30 Bedside Glucose 68 L 65 L 99 Lab Scanned Report REFERENCE LAB Test 10/15/16 12:47 Bedside Glucose 80 Medications Medications Current Medications Acetaminophen (Tylenol Liquid) 640 mg Q6H PRN GTB PAIN OR TEMP ABOVE 38C Last administered on 10/07/16 17:51; Admin Dose 640 MG; Start 09/06/16 at 22:30 Allopurinol (Zyloprim) 200 mg DAILY GTB Last administered on 10/15/16 09:37; Admin Dose 200 MG; Start 09/07/16 at 09:00 Ascorbic Acid (Vitamin C) 500 mg BID GTB Last administered on 10/15/16 09:37; Admin Dose 500 MG; Start 09/07/16 at 09:00 Calcitriol (Rocaltrol) 0.25 mcg DAILY GTB Last administered on 10/15/16 09:37 ; Admin Dose 0.25 MCG; Start 09/07/16 at 09:00 Chlorhexidine Gluconate (Peridex) 15 ml BID MM Last administered on 10/15/16 09:37; Admin Dose 15 ML; Start 09/07/16 at 09:00 Metoclopramide HCl (Reglan) 5 mg Q8H PRN GTB NAUSEA AND/OR VOMITING; Start 09/06 at 22:30 Sucralfate (Carafate Susp) 1 gm BID GTB Last administered on 10/15/16 09:37; Admin Dose 1 GM; Start 09/07/16 at 09:00 Ondansetron HCl (Zofran Inj) 4 mg Q6H PRN IV NAUSEA AND/OR VOMITING Last administered on 09/17/16 00:52; Admin Dose 4 MG; Start 09/06/16 at 22:30 Morphine Sulfate (morphine) 2 mg Q4H PRN IV PAIN LEVEL 7-10 Last administered on 10/12/16 21:55; Admin Dose 2 MG; Start 09/06/16 at 22:30 Metoclopramide HCl (Reglan) 5 mg Q6H PRN IV RESIDUALS > 100; Start 09/10/16 at 19:00 Clonidine (Catapres) 0.1 mg Q6H PRN GTB ELEVATED SYSTOLIC BP Last administered on 09/15/16 07:04; Admin Dose 0.1 MG; Start 09/13/16 at 23:00 Hydralazine HCl (Apresoline) 10 mg Q6H PRN IV ELEVATED SYSTOLIC BP Last administered on 09/15/16 02:08; Admin Dose 10 MG; Start 09/15/16 at 01:50 Collagenase (Santyl) 1 applic DAILY TOP Last administered on 10/15/16 09:38; Admin Dose 1 APPLIC; Start 09/18/16 at 09:00 Glycopyrrolate (Robinul) 1 mg Q8 GTB Last administered on 10/15/16 05:51; Admin Dose 1 MG; Start 09/19/16 at 09:30 Miscellaneous Information 1 ea NOTE XX ; Start 09/28/16 at 09:00 Glucose (Glutose) 15 gm Q15M PRN PO DECREASED GLUCOSE; Start 09/28/16 at 09:00 Glucose (Glutose) 22.5 gm Q15M PRN PO DECREASED GLUCOSE; Start 09/28/16 at 09:00 Dextrose (D50w Syringe) 25 ml Q15M PRN IV DECREASED GLUCOSE Last administered on 10/15/16 12:13; Admin Dose 25 ML; Start 09/28/16 at 09:00 Dextrose (D50w Syringe) 50 ml Q15M PRN IV DECREASED GLUCOSE; Start 09/28/16 at 09:00 Glucagon (Glucagen) 1 mg Q15M PRN IM DECREASED GLUCOSE; Start 09/28/16 at 09:00 Glucose (Glutose) 15 gm Q15M PRN BUCCAL DECREASED GLUCOSE; Start 09/28/16 at 09: 00 Insulin Aspart (Novolog Insulin Pen) NOVOLOG *MILD* ALGORI... Q6 SC Last administered on 10/11/16 12:27; Admin Dose 1 UNIT; Start 09/29/16 at 00:00 IV Flush (NS 10 ml) 10 ml PRN PRN IV FLUSH LINE; Start 09/29/16 at 20:30 Epoetin Jeffry 6000 units 6,000 units MoWeFr@17 SC Last administered on 18:38; Admin Dose 6,000 UNITS; Start 10/01/16 at 17:00 Vancomycin HCl 1.25 gm/Sodium Chloride 250 ml @ 83.333 mls/ hr Q96H IVPB Last administered on 10/13/16 17:17; Admin Dose 83.333 MLS/HR; Start 10/09/16 at 17: 00 Norepinephrine 16 mg/Dextrose 500 ml @ 0 mls/hr TITRATE IV Last administered on 10/14/16 20:42; Admin Dose 18.75 MLS/HR; Start 10/10/16 at 08:30 Levetiracetam 500 mg/Sodium Chloride 105 ml @ 420 mls/hr Q12 IVPB Last administered on 10/15/16 09:37; Admin Dose 420 MLS/HR; Start 10/10/16 at 21:00 Colistimethate Sodium 75 mg/ Sodium Chloride 100 ml @ 200 mls/hr DAILY IVPB Last administered on 10/15/16 09:42; Admin Dose 200 MLS/HR; Start 10/13/16 at 16:00 Metronidazole 100 ml @ 100 mls/hr Q8 IVPB Last administered on 10/15/16 05:51 ; Admin Dose 100 MLS/HR; Start 10/13/16 at 22:00 Dextrose (D10w) 1,000 ml @ 50 mls/hr Q20H IV Last administered on 10/14/16 20 :23; Admin Dose 50 MLS/HR; Start 10/14/16 at 20:00 NATI MONTEMAYOR M.D. Oct 15, 2016 13:58 NATI MONTEMAYOR M.D. Oct 15, 2016 13:58
[2016-10-15 14:12] LABS: ABNORMAL IP MESSAGE 1; HEMATOCRIT 28.7 % (42.0-52.0); HEMOGLOBIN 9.4 g/dl (14.0-18.0); MEAN CORPUSCULAR HEMOGLOBIN 29.5 pg (29.0-33.0); MEAN CORPUSCULAR HGB CONC 32.8 g/dl (32.0-37.0); MEAN PLATELET VOLUME 10.9 fl (7.4-10.4); RED BLOOD COUNT 3.19 10^6/ul (4.70-6.10); RED CELL DISTRIBUTION WIDTH 18.2 % (11.5-14.5); WHITE BLOOD COUNT 3.6 10^3/ul (4.8-10.8)
[2016-10-15 14:31] LABS: PLATELET COUNT 14 10^3/UL (140-415)
[2016-10-15 15:24] LABS: EOSINOPHILS # 0.1 10^3/ul (0.0-0.5); LYMPHOCYTES # 0.1 10^3/ul (0.8-2.9); MONOCYTE # 0.4 10^3/ul (0.3-0.9); NEUTROPHIL # 2.7 10^3/ul (1.6-7.5)
[2016-10-15 15:27] LABS: ANISOCYTOSIS 2+; POIKILOCYTOSIS 1+
[2016-10-15 15:28] LABS: HYPOCHROMASIA 2+; PLATELET ESTIMATE PLT APPEAR DECREASED
[2016-10-15] MEDS: DEXTROSE 10% 1,000 ML IV SCH (16:47)
--- NOTE | 2016-10-15 16:54 | PN ---
DATE: 10/15/2016 SUBJECTIVE: The patient's general condition is same. He is unresponsive. He is on ventilator supp ort. His breathing appears unlabored. His blood pressure is still being maintained on 11 mcg of Le vophed. PHYSICAL EXAMINATION: VITAL SIGNS: Show blood pressure 104/51, pulse rate of 111, showing sinus tachycardia, respiratory rate of 21, pulse oximetry showing 100% saturation with 30% inhaled oxygen concentration. His last recorded temperature was 98.5. NECK: Tracheal secretions are clear. No bleeding is seen. HEART: Regular rhythm. Sinus tachycardia. CHEST: Breath sounds are heard bilaterally, diminished in both the lower lung [place] with a few int ermittent rales and rhonchi. Otherwise, lung [place] are mostly clear. ABDOMEN: Soft, not distended gastrostomy tube feedings on hold. EXTREMITIES: Show generalized edema. LABORATORY DATA: From today shows glucose 101. The CBC shows a platelet count of 11,000, other res ults are not available. IMPRESSION: 1. Gram-negative septic shock with gram-negative sepsis from carbapenem-resistant Klebsiella pneumo niae. 2. Chronic respiratory failure, ventilator dependent. 3. Acute renal failure on dialysis. 4. History of seizure disorder. 5. Chronic encephalopathy. 6. Pancytopenia. 7. History of developmental day. 8. Probable gastrointestinal bleed. PLAN: 1. Continue long-term ventilator support. 2. Continue pressor drugs to stabilize blood pressure. 3. Continue antibiotics per ID neuropsychology medical consultant. 4. Continue dialysis per Nephrology. He is supposed to have dialysis today. 5. Continue bronchodilator inhalation therapy. As for my discussion with Dr. Mcelroy and nursing staff, the patient is DNR and dialysis will be st opped when the family is ready, the treatment has been ineffective so far and there is worsening in his condition and the patient's condition continues to deteriorate without showing any improvement. Dictated By: VEENA STREETER MD SR/NTS Conf#: [id number] DID#: [id number]
--- NOTE | 2016-10-15 20:37 | PN ---
DATE: 10/15/2016 SUBJECTIVE: No acute events. The patient remains obtunded on pressors, in no distress. No fevers. LABORATORY DATA: No labs this morning except platelet count is 11. INDWELLINGS: Trach, PEG, NG tube, right chest PermCath, left upper extremity PICC line, Brar kiesha ter. ANTIMICROBIALS: The patient is on: 1. Flagyl. 2. Colistin. 3. Vancomycin. PHYSICAL EXAMINATION: GENERAL: Chronically ill-appearing, middle-aged man who looks older than his age who is in no distr ess. HEENT: Head atraumatic, normocephalic. Sclerae anicteric. Buccal mucosa dry. NECK: Obese. Tracheostomy present. There is some drainage present around trach site. CHEST: Rise symmetrical. Breath sounds with bilateral scattered crackles. HEART: S1, S2. ABDOMEN: Distended, soft. Bowel tones hypoactive. EXTREMITIES: Contractured with bilateral edema. SKIN: With severe anasarca and multiple chronic wounds. ASSESSMENT 1. Septic shock with multisystem organ failure. 2. Polymicrobial multi-drug resistant bacteremia, likely line sepsis, possibly secondary to multipl e decubiti. 3. Multiple decubiti. 4. Chronic respiratory failure. 5. Chronic encephalopathy. 6. Anemia with significant thrombocytopenia. 7. End-stage renal disease, hemodialysis dependent. PLAN: The patient remains unchanged, hemodynamically unstable. Continue present care, antibiotics. The patient is DNR status. ____ committee is following him pending final decision regarding plan of care. Prognosis very poor. Dictated By: ARUN DIANA SALES REVIEW CLERK for [employer]/NIKOLAI Conf#: [id number] DID#: [id number]
[2016-10-15] MEDS: EPOETIN 3000 UNITS/1 ML INJ (ESRD) SC SCH (21:09)
[2016-10-16] VITALS (78 sets, daily range): BP systolic 53–133; BP diastolic 34–64; PULSE 0–135; RESP 11–41
[2016-10-16] MEDS: LEVALBUTEROL (HFA) 15 GM INHALER INH SCH ×4 (01:05→19:07)
[2016-10-16] MEDS: IPRATROPIUM (HFA) 12.9 GM INHALER INH SCH ×4 (01:05→19:07)
[2016-10-16] MEDS: INSULIN ASPART [NOVOLOG] 3 ML PEN SC SCH ×4 (05:45→23:19)
[2016-10-16] MEDS: metroNIDAZOLE 500 MG/NS (PMX) 100 ML IVPB SCH ×3 (05:46→21:33)
[2016-10-16] MEDS: GLYCOPYRROLATE 1 MG TAB GTB SCH ×3 (05:47→21:09)
[2016-10-16] MEDS: DEXTROSE 50% 50 ML SYRINGE IV PRN (05:47)
[2016-10-16] MEDS: SEVELAMER CARBONATE 2.4 GM PKT GTB SCH ×3 (07:35→17:35)
[2016-10-16] MEDS: LEVETIRACETAM IV 500 MG in SOD CHLORIDE 0.9% 100 ML IVPB SCH ×2 (08:33→20:31)
[2016-10-16] MEDS: SUCRALFATE (100 MG/ML) 10ML CUP GTB SCH ×2 (08:33→20:32)
[2016-10-16] MEDS: CHLORHEXIDINE GLUCONATE 15 ML UD CUP MM SCH ×2 (08:33→20:31)
[2016-10-16] MEDS: ASCORBIC ACID 500 MG TAB GTB SCH ×2 (08:34→20:32)
[2016-10-16] MEDS: ALLOPURINOL 100 MG TAB GTB SCH (08:34)
[2016-10-16] MEDS: CALCITRIOL 0.25 MCG CAP GTB SCH (08:34)
[2016-10-16] MEDS: COLLAGENASE 30 GM TUBE TOP SCH (08:35)
[2016-10-16] MEDS: COLISTIMETHATE 75 MG in SOD CHLORIDE 0.9% 100 ML IVPB SCH (08:56)
--- NOTE | 2016-10-16 09:19 | CONS ---
Date/Time of Note Date/Time of Note DATE: 10/16/16 TIME: 09:18 Assessment/Plan Assessment/Plan Additional Assessment/Plan 1. Acute kidney injury on possible chronic kidney disease unknown stage secondary to severe prerenal azotemia causing ischemic acute tubular necrosis in the setting of severe anemia.- continue to have Anuria with uremic symptoms and GI bleeding- started on HD during this admission 2. Severe anemia,s/p PRBC 3. Chronic respiratory failure, status post tracheostomy, on vent. 4. Pancytopenia. 5. History of a seizure disorder. 6. thrombocytopenia 7. Hypotension due to bleeding/sepsis PLAN: DNR no plan for further HD as per plan will follow up if change in decision currently SBP in 80s Consultation Date/Type/Reason Admit Date/Time Sep 06, 2016 at 22:27 Initial Consult Date Aug Type of Consultation: NEPHROLOGY Referring Provider: FREDDY COELLO MD 24 HR Interval Summary Free Text/Dictation pt had a HD yesterday - no acute events, HR now in 120-130s, SBP in 80s Exam/Review of Systems Vital Signs Vitals Vital Signs Date Time Temp Pulse Resp B/P Pulse Ox O2 Delivery O2 Flow Rate FiO2 10/16/16 08:00 30 10/16/16 08:00 99.0 115 22 82/43 99 Mechanical Ventilator Intake and Output 10/15/16 10/15/16 10/16/16 14:59 22:59 06:59 Intake Total 714.34 ml 1560.75 ml 862 ml Output Total 2000 ml Balance 714.34 ml -439.25 ml 862 ml Results Result Diagram: 10/15/16 0330 10/14/16 0445 Results 24 hrs Laboratory Tests Test 10/15/16 09:21 10/15/16 12:08 10/15/16 12:30 10/15/16 12:47 Lab Scanned Report REFERENCE LAB Bedside Glucose 65 L 99 80 Test 10/15/16 18:15 10/15/16 23:55 10/16/16 05:41 10/16/16 07:25 Bedside Glucose 112 122 112 87 Medications Medications Current Medications Acetaminophen (Tylenol Liquid) 640 mg Q6H PRN GTB PAIN OR TEMP ABOVE 38C Last administered on 10/07/16t 17:51; Admin Dose 640 MG; Start 09/06/16 at 22:30 Allopurinol (Zyloprim) 200 mg DAILY GTB Last administered on 10/16/16 08:34; Admin Dose 200 MG; Start 09/07/16 at 09:00 Ascorbic Acid (Vitamin C) 500 mg BID GTB Last administered on 10/16/16 08:34; Admin Dose 500 MG; Start 09/07/16 at 09:00 Calcitriol (Rocaltrol) 0.25 mcg DAILY GTB Last administered on 10/16/16 08:34 ; Admin Dose 0.25 MCG; Start 09/07/16 at 09:00 Chlorhexidine Gluconate (Peridex) 15 ml BID MM Last administered on 10/16/16 08:33; Admin Dose 15 ML; Start 09/07/16 at 09:00 Metoclopramide HCl (Reglan) 5 mg Q8H PRN GTB NAUSEA AND/OR VOMITING; Start 09/06 at 22:30 Sucralfate (Carafate Susp) 1 gm BID GTB Last administered on 10/16/16 08:33; Admin Dose 1 GM; Start 09/07/16 at 09:00 Ondansetron HCl (Zofran Inj) 4 mg Q6H PRN IV NAUSEA AND/OR VOMITING Last administered on 09/17/16 00:52; Admin Dose 4 MG; Start 09/06/16 at 22:30 Morphine Sulfate (morphine) 2 mg Q4H PRN IV PAIN LEVEL 7-10 Last administered on 10/12/16 21:55; Admin Dose 2 MG; Start 09/06/16 at 22:30 Metoclopramide HCl (Reglan) 5 mg Q6H PRN IV RESIDUALS > 100; Start 09/10/16 at 19:00 Clonidine (Catapres) 0.1 mg Q6H PRN GTB ELEVATED SYSTOLIC BP Last administered on 09/15/16 07:04; Admin Dose 0.1 MG; Start 09/13/16 at 23:00 Hydralazine HCl (Apresoline) 10 mg Q6H PRN IV ELEVATED SYSTOLIC BP Last administered on 09/15/16 02:08; Admin Dose 10 MG; Start 09/15/16 at 01:50 Collagenase (Santyl) 1 applic DAILY TOP Last administered on 3/21/17at 08:35; Admin Dose 1 APPLIC; Start 09/18/16 at 09:00 Glycopyrrolate (Robinul) 1 mg Q8 GTB Last administered on 10/16/16 05:47; Admin Dose 1 MG; Start 09/19/16 at 09:30 Miscellaneous Information 1 ea NOTE XX ; Start 09/28/16 at 09:00 Glucose (Glutose) 15 gm Q15M PRN PO DECREASED GLUCOSE; Start 09/28/16 at 09:00 Glucose (Glutose) 22.5 gm Q15M PRN PO DECREASED GLUCOSE; Start 09/28/16 at 09:00 Dextrose (D50w Syringe) 25 ml Q15M PRN IV DECREASED GLUCOSE Last administered on 10/16/16 05:47; Admin Dose 25 ML; Start 09/28/16 at 09:00 Dextrose (D50w Syringe) 50 ml Q15M PRN IV DECREASED GLUCOSE; Start 09/28/16 at 09:00 Glucagon (Glucagen) 1 mg Q15M PRN IM DECREASED GLUCOSE; Start 09/28/16 at 09:00 Glucose (Glutose) 15 gm Q15M PRN BUCCAL DECREASED GLUCOSE; Start 09/28/16 at 09: 00 Insulin Aspart (Novolog Insulin Pen) NOVOLOG *MILD* ALGORI... Q6 SC Last administered on 10/11/16 12:27; Admin Dose 1 UNIT; Start 09/29/16 at 00:00 IV Flush (NS 10 ml) 10 ml PRN PRN IV FLUSH LINE; Start 09/29/16 at 20:30 Epoetin Jeffry 6000 units 6,000 units MoWeFr@17 SC Last administered on 21:09; Admin Dose 6,000 UNITS; Start 10/01/16 at 17:00 Vancomycin HCl 1.25 gm/Sodium Chloride 250 ml @ 83.333 mls/ hr Q96H IVPB Last administered on 10/13/16 17:17; Admin Dose 83.333 MLS/HR; Start 10/09/16 at 17: 00 Norepinephrine 16 mg/Dextrose 500 ml @ 0 mls/hr TITRATE IV Last administered on 10/16/16 05:48; Admin Dose 56.25 MLS/HR; Start 10/10/16 at 08:30 Levetiracetam 500 mg/Sodium Chloride 105 ml @ 420 mls/hr Q12 IVPB Last administered on 10/16/16 08:33; Admin Dose 420 MLS/HR; Start 10/10/16 at 21:00 Colistimethate Sodium 75 mg/ Sodium Chloride 100 ml @ 200 mls/hr DAILY IVPB Last administered on 10/16/16 08:56; Admin Dose 200 MLS/HR; Start 10/13/16 at 16:00 Metronidazole 100 ml @ 100 mls/hr Q8 IVPB Last administered on 10/16/16 05:46 ; Admin Dose 100 MLS/HR; Start 10/13/16 at 22:00 Dextrose (D10w) 1,000 ml @ 50 mls/hr Q20H IV Last administered on 10/15/16 16 :47; Admin Dose 50 MLS/HR; Start 10/14/16 at 20:00 KENIA TURCIOS MD Oct 16, 2016 09:19
[2016-10-16] MEDS: DEXTROSE 10% 1,000 ML IV SCH (11:12)
--- NOTE | 2016-10-16 13:16 | CONS ---
Date/Time of Note Date/Time of Note DATE: 10/16/16 TIME: 13:14 Assessment/Plan Assessment/Plan Chief Complaint/Hosp Course SUBJECTIVE: No acute events. The patient remains obtunded on pressors, in no distress. No fevers. INDWELLINGS: Trach, PEG, NG tube, right chest PermCath, left upper extremity PICC line, Brar catheter. ANTIMICROBIALS: The patient is on: 1. Flagyl. 2. Colistin. 3. Vancomycin. PHYSICAL EXAMINATION: GENERAL: Chronically ill-appearing, middle-aged man who looks older than his age who is in no distress. HEENT: Head atraumatic, normocephalic. Sclerae anicteric. Buccal mucosa dry. NECK: Obese. Tracheostomy present. There is some drainage present around trach site. CHEST: Rise symmetrical. Breath sounds with bilateral scattered crackles. HEART: S1, S2. ABDOMEN: Distended, soft. Bowel tones hypoactive. EXTREMITIES: Contractured with bilateral edema. SKIN: With severe anasarca and multiple chronic wounds. ASSESSMENT 1. Septic shock with multisystem organ failure. 2. Polymicrobial multi-drug resistant bacteremia, likely line sepsis, possibly secondary to multiple decubiti. 3. Multiple decubiti. 4. Chronic respiratory failure. 5. Chronic encephalopathy. 6. Anemia with significant thrombocytopenia. 7. End-stage renal disease, hemodialysis dependent. PLAN: The patient remains hemodynamically unstable. Continue present care, antibiotics. The patient is DNR status. Prognosis very poor. DW staff BISHOP Becerra Problems: Consultation Date/Type/Reason Admit Date/Time Sep 06, 2016 at 22:27 Initial Consult Date 09/07/16 Type of Consultation: ID Referring Provider: FREDDY COELLO MD Exam/Review of Systems Vital Signs Vitals Vital Signs Date Time Temp Pulse Resp B/P Pulse Ox O2 Delivery O2 Flow Rate FiO2 10/16/16 12:18 122 17 94 30 10/16/16 10:30 99/42 Mechanical Ventilator 10/16/16 08:00 99.0 Intake and Output 10/15/16 10/15/16 10/16/16 15:00 23:00 07:00 Intake Total 764.34 ml 1646.75 ml 782.25 ml Output Total 2000 ml Balance 764.34 ml -353.25 ml 782.25 ml Results Result Diagram: 10/15/16 0330 10/14/16 0445 Results 24 hrs Laboratory Tests Test 10/15/16 18:15 10/15/16 23:55 10/16/16 05:41 10/16/16 07:25 Bedside Glucose 112 122 112 87 Test 10/16/16 11:14 Bedside Glucose 86 Medications Medications Current Medications Acetaminophen (Tylenol Liquid) 640 mg Q6H PRN GTB PAIN OR TEMP ABOVE 38C Last administered on 10/07/16 17:51; Admin Dose 640 MG; Start 09/06/16 at 22:30 Allopurinol (Zyloprim) 200 mg DAILY GTB Last administered on 10/16/16 08:34; Admin Dose 200 MG; Start 09/07/16 at 09:00 Ascorbic Acid (Vitamin C) 500 mg BID GTB Last administered on 10/16/16 08:34; Admin Dose 500 MG; Start 09/07/16 at 09:00 Calcitriol (Rocaltrol) 0.25 mcg DAILY GTB Last administered on 10/16/16 08:34 ; Admin Dose 0.25 MCG; Start 09/07/16 at 09:00 Chlorhexidine Gluconate (Peridex) 15 ml BID MM Last administered on 10/16/16 08:33; Admin Dose 15 ML; Start 09/07/16 at 09:00 Metoclopramide HCl (Reglan) 5 mg Q8H PRN GTB NAUSEA AND/OR VOMITING; Start 09/06 at 22:30 Sucralfate (Carafate Susp) 1 gm BID GTB Last administered on 10/16/16 08:33; Admin Dose 1 GM; Start 09/07/16 at 09:00 Ondansetron HCl (Zofran Inj) 4 mg Q6H PRN IV NAUSEA AND/OR VOMITING Last administered on 09/17/16 00:52; Admin Dose 4 MG; Start 09/06/16 at 22:30 Morphine Sulfate (morphine) 2 mg Q4H PRN IV PAIN LEVEL 7-10 Last administered on 10/12/16 21:55; Admin Dose 2 MG; Start 09/06/16 at 22:30 Metoclopramide HCl (Reglan) 5 mg Q6H PRN IV RESIDUALS > 100; Start 09/10/16 at 19:00 Clonidine (Catapres) 0.1 mg Q6H PRN GTB ELEVATED SYSTOLIC BP Last administered on 09/15/16 07:04; Admin Dose 0.1 MG; Start 09/13/16 at 23:00 Hydralazine HCl (Apresoline) 10 mg Q6H PRN IV ELEVATED SYSTOLIC BP Last administered on 09/15/16 02:08; Admin Dose 10 MG; Start 09/15/16 at 01:50 Collagenase (Santyl) 1 applic DAILY TOP Last administered on 10/16/16 08:35; Admin Dose 1 APPLIC; Start 09/18/16 at 09:00 Glycopyrrolate (Robinul) 1 mg Q8 GTB Last administered on 10/16/16 05:47; Admin Dose 1 MG; Start 09/19/16 at 09:30 Miscellaneous Information 1 ea NOTE XX ; Start 09/28/16 at 09:00 Glucose (Glutose) 15 gm Q15M PRN PO DECREASED GLUCOSE; Start 09/28/16 at 09:00 Glucose (Glutose) 22.5 gm Q15M PRN PO DECREASED GLUCOSE; Start 09/28/16 at 09:00 Dextrose (D50w Syringe) 25 ml Q15M PRN IV DECREASED GLUCOSE Last administered on 10/16/16 05:47; Admin Dose 25 ML; Start 09/28/16 at 09:00 Dextrose (D50w Syringe) 50 ml Q15M PRN IV DECREASED GLUCOSE; Start 09/28/16 at 09:00 Glucagon (Glucagen) 1 mg Q15M PRN IM DECREASED GLUCOSE; Start 09/28/16 at 09:00 Glucose (Glutose) 15 gm Q15M PRN BUCCAL DECREASED GLUCOSE; Start 09/28/16 at 09: 00 Insulin Aspart (Novolog Insulin Pen) NOVOLOG *MILD* ALGORI... Q6 SC Last administered on 10/11/16 12:27; Admin Dose 1 UNIT; Start 09/29/16 at 00:00 IV Flush (NS 10 ml) 10 ml PRN PRN IV FLUSH LINE; Start 09/29/16 at 20:30 Epoetin Jeffry 6000 units 6,000 units MoWeFr@17 SC Last administered on 21:09; Admin Dose 6,000 UNITS; Start 10/01/16 at 17:00 Vancomycin HCl 1.25 gm/Sodium Chloride 250 ml @ 83.333 mls/ hr Q96H IVPB Last administered on 10/13/16 17:17; Admin Dose 83.333 MLS/HR; Start 10/09/16 at 17: 00 Norepinephrine 16 mg/Dextrose 500 ml @ 0 mls/hr TITRATE IV Last administered on 10/16/16 05:48; Admin Dose 56.25 MLS/HR; Start 10/10/16 at 08:30 Levetiracetam 500 mg/Sodium Chloride 105 ml @ 420 mls/hr Q12 IVPB Last administered on 10/16/16 08:33; Admin Dose 420 MLS/HR; Start 10/10/16 at 21:00 Colistimethate Sodium 75 mg/ Sodium Chloride 100 ml @ 200 mls/hr DAILY IVPB Last administered on 10/16/16 08:56; Admin Dose 200 MLS/HR; Start 10/13/16 at 16:00 Metronidazole 100 ml @ 100 mls/hr Q8 IVPB Last administered on 10/16/16 05:46 ; Admin Dose 100 MLS/HR; Start 10/13/16 at 22:00 Dextrose (D10w) 1,000 ml @ 50 mls/hr Q20H IV Last administered on 10/16/16 11 :12; Admin Dose 50 MLS/HR; Start 10/14/16 at 20:00 ARUN DIANA NP Oct 16, 2016 13:16
--- NOTE | 2016-10-16 13:40 | PN ---
Date/Time of Note Date/Time of Note DATE: 10/16/16 TIME: 13:37 Assessment/Plan VTE Prophylaxis VTE Prophylaxis Intervention: SCD's Lines/Catheters IV Catheter Type (from [facility]): PICC Line Urinary Cath still in place: No Assessment/Plan Chief Complaint/Hosp Course ASSESSMENT AND PLAN: - Shock hypovolemic, possibly septic. Continue ICU care, IVF, pressors, blood transfusion. -Severe anemia anemia secondary to GI bleed. Continue Protonix drip. Plan for possible endoscopy when patient is more stable. Continue blood transfusion. - Heparin-induced thrombocytopenia, hold heparin, patient status post platelets transfusion. Dr. Coughlin is following in hematology consultation. - GNR bacteremia, status of the PICC line exchange. - Severe anemia 2 GI bleed. Continue to monitor hemoglobin and hematocrit. Dr. Singh is following in gastroenterology consultation. - Acute kidney failure on chronic kidney disease. Continue to monitor BUN and creatinine. Dr. Mk Purdy is following in nephrology consultation. Patient with worsening renal function. Started on Hemodialysis during this admission. - Pancytopenia 2 chronic inflammation and sepsis. - Ventilator-dependent respiratory failure. Dr. Aragon is following in pulmonology consultation. Continue ventilator support, bronchodilators. - HCAP on admission. Status post treatment. - Dysphagia with PEG. - History of seizure disorder. Continue patient on Keppra. - Diastolic dysfunction congestive heart failure with preserved ejection fraction of 60%. - S/p sepsis on admission. Dr. Guy is following patient in infectious disease consultation. - Status post cerebrovascular accident, status post craniotomy. - Mental retardation. - DNR status Per ethics committee hemodialysis and and other aggressive interventions stopped 10/15. Continue Protonix for peptic ulcer disease prophylaxis. Further recommendations based on clinical course. Plan of care discussed with Dr. Mcelroy. Problems: Subjective 24 Hr Interval Summary Free Text/Dictation Patient's continues to be on Levophed drip for blood pressure support, obtunded. Exam/Review of Systems Vital Signs Vitals Vital Signs Date Time Temp Pulse Resp B/P Pulse Ox O2 Delivery O2 Flow Rate FiO2 10/16/16 12:18 122 17 94 30 10/16/16 10:30 99/42 Mechanical Ventilator 10/16/16 08:00 99.0 Intake and Output 10/15/16 10/15/16 10/16/16 15:00 23:00 07:00 Intake Total 764.34 ml 1646.75 ml 782.25 ml Output Total 2000 ml Balance 764.34 ml -353.25 ml 782.25 ml Exam Constitutional: alert, well developed Head: atraumatic, normocephalic Eyes: nl conjunctiva ENMT: nl external ears & nose Neck: jvd, supple Respiratory: clear to auscultation Cardiovascular: regular rate and rhythm Gastrointestinal: nl liver, spleen, soft Genitourinary - Male: nl penis, other ( Brar catheter ) Musculoskeletal: nl extremities to inspection, Extremities: normal pulses, bilateral LE s/p vascular intervention Results Result Diagram: 10/15/16 0330 10/14/16 0445 Results 24 hrs Laboratory Tests Test 10/15/16 18:15 10/15/16 23:55 10/16/16 05:41 10/16/16 07:25 Bedside Glucose 112 122 112 87 Test 10/16/16 11:14 Bedside Glucose 86 Medications Medications Current Medications Acetaminophen (Tylenol Liquid) 640 mg Q6H PRN GTB PAIN OR TEMP ABOVE 38C Last administered on 10/07/16 17:51; Admin Dose 640 MG; Start 09/06/16 at 22:30 Allopurinol (Zyloprim) 200 mg DAILY GTB Last administered on 10/16/16 08:34; Admin Dose 200 MG; Start 09/07/16 at 09:00 Ascorbic Acid (Vitamin C) 500 mg BID GTB Last administered on 10/16/16 08:34; Admin Dose 500 MG; Start 09/07/16 at 09:00 Calcitriol (Rocaltrol) 0.25 mcg DAILY GTB Last administered on 10/16/16 08:34 ; Admin Dose 0.25 MCG; Start 09/07/16 at 09:00 Chlorhexidine Gluconate (Peridex) 15 ml BID MM Last administered on 10/16/16 08:33; Admin Dose 15 ML; Start 09/07/16 at 09:00 Metoclopramide HCl (Reglan) 5 mg Q8H PRN GTB NAUSEA AND/OR VOMITING; Start 09/06 at 22:30 Sucralfate (Carafate Susp) 1 gm BID GTB Last administered on 10/16/16 08:33; Admin Dose 1 GM; Start 09/07/16 at 09:00 Ondansetron HCl (Zofran Inj) 4 mg Q6H PRN IV NAUSEA AND/OR VOMITING Last administered on 09/17/16 00:52; Admin Dose 4 MG; Start 09/06/16 at 22:30 Morphine Sulfate (morphine) 2 mg Q4H PRN IV PAIN LEVEL 7-10 Last administered on 10/12/16 21:55; Admin Dose 2 MG; Start 09/06/16 at 22:30 Metoclopramide HCl (Reglan) 5 mg Q6H PRN IV RESIDUALS > 100; Start 09/10/16 at 19:00 Clonidine (Catapres) 0.1 mg Q6H PRN GTB ELEVATED SYSTOLIC BP Last administered on 09/15/16 07:04; Admin Dose 0.1 MG; Start 09/13/16 at 23:00 Hydralazine HCl (Apresoline) 10 mg Q6H PRN IV ELEVATED SYSTOLIC BP Last administered on 09/15/16 02:08; Admin Dose 10 MG; Start 09/15/16 at 01:50 Collagenase (Santyl) 1 applic DAILY TOP Last administered on 10/16/16 08:35; Admin Dose 1 APPLIC; Start 09/18/16 at 09:00 Glycopyrrolate (Robinul) 1 mg Q8 GTB Last administered on 10/16/16 05:47; Admin Dose 1 MG; Start 09/19/16 at 09:30 Miscellaneous Information 1 ea NOTE XX ; Start 09/28/16 at 09:00 Glucose (Glutose) 15 gm Q15M PRN PO DECREASED GLUCOSE; Start 09/28/16 at 09:00 Glucose (Glutose) 22.5 gm Q15M PRN PO DECREASED GLUCOSE; Start 09/28/16 at 09:00 Dextrose (D50w Syringe) 25 ml Q15M PRN IV DECREASED GLUCOSE Last administered on 10/16/16 05:47; Admin Dose 25 ML; Start 09/28/16 at 09:00 Dextrose (D50w Syringe) 50 ml Q15M PRN IV DECREASED GLUCOSE; Start 09/28/16 at 09:00 Glucagon (Glucagen) 1 mg Q15M PRN IM DECREASED GLUCOSE; Start 09/28/16 at 09:00 Glucose (Glutose) 15 gm Q15M PRN BUCCAL DECREASED GLUCOSE; Start 09/28/16 at 09: 00 Insulin Aspart (Novolog Insulin Pen) NOVOLOG *MILD* ALGORI... Q6 SC Last administered on 10/11/16 12:27; Admin Dose 1 UNIT; Start 09/29/16 at 00:00 IV Flush (NS 10 ml) 10 ml PRN PRN IV FLUSH LINE; Start 09/29/16 at 20:30 Epoetin Jeffry 6000 units 6,000 units MoWeFr@17 SC Last administered on 21:09; Admin Dose 6,000 UNITS; Start 10/01/16 at 17:00 Vancomycin HCl 1.25 gm/Sodium Chloride 250 ml @ 83.333 mls/ hr Q96H IVPB Last administered on 10/13/16 17:17; Admin Dose 83.333 MLS/HR; Start 10/09/16 at 17: 00 Norepinephrine 16 mg/Dextrose 500 ml @ 0 mls/hr TITRATE IV Last administered on 10/16/16 05:48; Admin Dose 56.25 MLS/HR; Start 10/10/16 at 08:30 Levetiracetam 500 mg/Sodium Chloride 105 ml @ 420 mls/hr Q12 IVPB Last administered on 10/16/16 08:33; Admin Dose 420 MLS/HR; Start 10/10/16 at 21:00 Colistimethate Sodium 75 mg/ Sodium Chloride 100 ml @ 200 mls/hr DAILY IVPB Last administered on 10/16/16 08:56; Admin Dose 200 MLS/HR; Start 10/13/16 at 16:00 Metronidazole 100 ml @ 100 mls/hr Q8 IVPB Last administered on 10/16/16 05:46 ; Admin Dose 100 MLS/HR; Start 10/13/16 at 22:00 Dextrose (D10w) 1,000 ml @ 50 mls/hr Q20H IV Last administered on 10/16/16 11 :12; Admin Dose 50 MLS/HR; Start 10/14/16 at 20:00 QUIN ORTIZ Oct 16, 2016 13:39
[2016-10-16] MEDS: morphine 2 MG INJ IV PRN (20:31)
[2016-10-17] VITALS (69 sets, daily range): BP systolic 46–177; BP diastolic 26–66; PULSE 96–136; RESP 9–62
[2016-10-17] MEDS: LEVALBUTEROL (HFA) 15 GM INHALER INH SCH ×4 (02:53→20:25)
[2016-10-17] MEDS: IPRATROPIUM (HFA) 12.9 GM INHALER INH SCH ×4 (02:53→20:25)
[2016-10-17 04:38] LABS: ADD SCAN DIFF NO
[2016-10-17 05:01] LABS: POTASSIUM 3.3 mmol/L (3.5-5.1)
[2016-10-17 05:03] LABS: CREATININE 1.81 mg/dl (0.61-1.24)
[2016-10-17 05:04] LABS: CALCIUM 7.3 mg/dl (8.4-10.2)
[2016-10-17 05:43] LABS: ABNORMAL IP MESSAGE 1; BASOPHILS % 0.5 % (0.0-2.0); EOSINOPHILS # 0.2 10^3/ul (0.0-0.5); EOSINOPHILS % 3.8 % (0.0-7.0); HEMATOCRIT 28.8 % (42.0-52.0); HEMOGLOBIN 9.5 g/dl (14.0-18.0); LYMPHOCYTES # 0.6 10^3/ul (0.8-2.9); LYMPHOCYTES % 15.4 % (15.0-51.0); MEAN CORPUSCULAR HEMOGLOBIN 29.1 pg (29.0-33.0); MEAN CORPUSCULAR VOLUME 88.1 fl (82.0-101.0); MEAN PLATELET VOLUME 10.9 fl (7.4-10.4); MONOCYTE # 0.6 10^3/ul (0.3-0.9); NEUTROPHIL # 2.5 10^3/ul (1.6-7.5); NEUTROPHILS % 63.6 % (39.0-77.0); RED BLOOD COUNT 3.27 10^6/ul (4.70-6.10); RED CELL DISTRIBUTION WIDTH 18.3 % (11.5-14.5)
[2016-10-17] MEDS: metroNIDAZOLE 500 MG/NS (PMX) 100 ML IVPB SCH ×3 (05:44→23:22)
[2016-10-17] MEDS: INSULIN ASPART [NOVOLOG] 3 ML PEN SC SCH ×3 (05:44→18:00)
[2016-10-17] MEDS: GLYCOPYRROLATE 1 MG TAB GTB SCH ×2 (05:44→05:58)
[2016-10-17 05:58] LABS: MONOCYTES % 16.2 % (0.0-11.0); PLATELET COUNT 2 10^3/UL (140-415)
[2016-10-17] MEDS: SEVELAMER CARBONATE 2.4 GM PKT GTB SCH (07:35)
[2016-10-17] MEDS ORDERED: NORepinephrine 8MG/250 ML (PMX 250 ML ONE ×2 (08:02→19:46)
[2016-10-17] MEDS: DEXTROSE 10% 1,000 ML IV SCH (08:04)
[2016-10-17] MEDS ORDERED: NORepinephrine 8MG/250 ML (PMX 250 ML IV SCH (08:30)
[2016-10-17] MEDS: LEVETIRACETAM IV 500 MG in SOD CHLORIDE 0.9% 100 ML IVPB SCH ×2 (08:34→21:35)
[2016-10-17] MEDS: ALLOPURINOL 100 MG TAB GTB SCH (09:00)
[2016-10-17] MEDS: ASCORBIC ACID 500 MG TAB GTB SCH (09:00)
[2016-10-17] MEDS: COLLAGENASE 30 GM TUBE TOP SCH (09:00)
--- NOTE | 2016-10-17 09:12 | CONS ---
Date/Time of Note Date/Time of Note DATE: 10/17/16 TIME: 09:10 Assessment/Plan Assessment/Plan Additional Assessment/Plan 1. Acute kidney injury on possible chronic kidney disease unknown stage secondary to severe prerenal azotemia causing ischemic acute tubular necrosis in the setting of severe anemia.- continue to have Anuria with uremic symptoms and GI bleeding- started on HD during this admission 2. Severe anemia,s/p PRBC 3. Chronic respiratory failure, status post tracheostomy, on vent. 4. Pancytopenia. 5. History of a seizure disorder. 6. thrombocytopenia severe 7. Hypotension due to bleeding/sepsis PLAN: DNR no plan for further HD as per meeting decision will follow up if change in decision currently SBP in 80s on levophed will continue to follow up , Consultation Date/Type/Reason Admit Date/Time Sep 06, 2016 at 22:27 Initial Consult Date Aug Type of Consultation: NEPHROLOGY Referring Provider: FREDDY OCELLO MD 24 HR Interval Summary Free Text/Dictation s/p Bioethics, Currently on Levophed gtt, DNR, no plan for HD today Exam/Review of Systems Vital Signs Vitals Vital Signs Date Time Temp Pulse Resp B/P Pulse Ox O2 Delivery O2 Flow Rate FiO2 10/17/16 09:04 109 17 100 30 10/17/16 08:11 98.6 177/53 Mechanical Ventilator Intake and Output 10/16/16 10/16/16 10/17/16 15:00 23:00 07:00 Intake Total 1005.00 ml 1055.00 ml 925.00 ml Output Total 0 ml 0 ml Balance 1005.00 ml 1055.00 ml 925.00 ml Exam GENERAL: lethargic unresponsive HEENT: Head atraumatic, normocephalic. Sclerae anicteric. Buccal mucosa dry. NECK: Obese. Tracheostomy present. There is some drainage present around trach site. CHEST: Rise symmetrical. Breath sounds with bilateral scattered crackles. HEART: S1, S2. ABDOMEN: Distended, soft. Bowel tones hypoactive. EXTREMITIES: Contractured with bilateral edema. SKIN: With severe anasarca and multiple chronic wounds. Results Result Diagram: 10/17/16 0400 10/17/16 0400 Results 24 hrs Laboratory Tests Test 10/16/16 11:14 10/16/16 17:46 10/16/16 20:33 10/16/16 21:24 Bedside Glucose 86 92 76 76 Test 10/16/16 22:27 10/16/16 23:18 10/17/16 04:00 10/17/16 05:39 Bedside Glucose 85 97 103 Anion Gap 11 Basophils # 0.0 Basophils % 0.5 Blood Urea Nitrogen 61 H Calcium Level 7.3 L Carbon Dioxide Level 21 Chloride Level 100 Creatinine 1.81 H Eosinophils # 0.2 Eosinophils % 3.8 Glucose Level 86 Hematocrit 28.8 L Hemoglobin 9.5 L Lymphocytes # 0.6 L Lymphocytes % 15.4 Mean Corpuscular Hemoglobin 29.1 Mean Corpuscular Hemoglobin Concent 33.0 Mean Corpuscular Volume 88.1 Mean Platelet Volume 10.9 H Monocytes # 0.6 Monocytes % 16.2 H Neutrophils # 2.5 Neutrophils % 63.6 Nucleated Red Blood Cells # 0.0 Nucleated Red Blood Cells % 0.0 Platelet Count 2 #*L Potassium Level 3.3 L Red Blood Count 3.27 L Red Cell Distribution Width 18.3 H Sodium Level 129 L White Blood Count 4.0 L Medications Medications Current Medications Acetaminophen (Tylenol Liquid) 640 mg Q6H PRN GTB PAIN OR TEMP ABOVE 38C Last administered on 10/07/16 17:51; Admin Dose 640 MG; Start 09/06/16 at 22:30 Allopurinol (Zyloprim) 200 mg DAILY GTB Last administered on 10/16/16 08:34; Admin Dose 200 MG; Start 09/07/16 at 09:00 Ascorbic Acid (Vitamin C) 500 mg BID GTB Last administered on 10/16/16 08:34; Admin Dose 500 MG; Start 09/07/16 at 09:00 Calcitriol (Rocaltrol) 0.25 mcg DAILY GTB Last administered on 10/16/16 08:34 ; Admin Dose 0.25 MCG; Start 09/07/16 at 09:00 Chlorhexidine Gluconate (Peridex) 15 ml BID MM Last administered on 10/16/16 20:31; Admin Dose 15 ML; Start 09/07/16 at 09:00 Metoclopramide HCl (Reglan) 5 mg Q8H PRN GTB NAUSEA AND/OR VOMITING; Start 09/06 at 22:30 Sucralfate (Carafate Susp) 1 gm BID GTB Last administered on 10/16/16 08:33; Admin Dose 1 GM; Start 09/07/16 at 09:00 Ondansetron HCl (Zofran Inj) 4 mg Q6H PRN IV NAUSEA AND/OR VOMITING Last administered on 09/17/16 00:52; Admin Dose 4 MG; Start 09/06/16 at 22:30 Morphine Sulfate (morphine) 2 mg Q4H PRN IV PAIN LEVEL 7-10 Last administered on 10/16/16 20:31; Admin Dose 2 MG; Start 09/06/16 at 22:30 Metoclopramide HCl (Reglan) 5 mg Q6H PRN IV RESIDUALS > 100 Last administered on 10/16/16 20:42; Admin Dose 5 MG; Start 09/10/16 at 19:00 Clonidine (Catapres) 0.1 mg Q6H PRN GTB ELEVATED SYSTOLIC BP Last administered on 09/15/16 07:04; Admin Dose 0.1 MG; Start 09/13/16 at 23:00 Hydralazine HCl (Apresoline) 10 mg Q6H PRN IV ELEVATED SYSTOLIC BP Last administered on 09/15/16 02:08; Admin Dose 10 MG; Start 09/15/16 at 01:50 Collagenase (Santyl) 1 applic DAILY TOP Last administered on 10/16/16 08:35; Admin Dose 1 APPLIC; Start 09/18/16 at 09:00 Glycopyrrolate (Robinul) 1 mg Q8 GTB Last administered on 10/16/16 05:47; Admin Dose 1 MG; Start 09/19/16 at 09:30 Miscellaneous Information 1 ea NOTE XX ; Start 09/28/16 at 09:00 Glucose (Glutose) 15 gm Q15M PRN PO DECREASED GLUCOSE; Start 09/28/16 at 09:00 Glucose (Glutose) 22.5 gm Q15M PRN PO DECREASED GLUCOSE; Start 09/28/16 at 09:00 Dextrose (D50w Syringe) 25 ml Q15M PRN IV DECREASED GLUCOSE Last administered on 10/16/16 05:47; Admin Dose 25 ML; Start 09/28/16 at 09:00 Dextrose (D50w Syringe) 50 ml Q15M PRN IV DECREASED GLUCOSE; Start 09/28/16 at 09:00 Glucagon (Glucagen) 1 mg Q15M PRN IM DECREASED GLUCOSE; Start 09/28/16 at 09:00 Glucose (Glutose) 15 gm Q15M PRN BUCCAL DECREASED GLUCOSE; Start 09/28/16 at 09: 00 Insulin Aspart (Novolog Insulin Pen) NOVOLOG *MILD* ALGORI... Q6 SC Last administered on 10/11/16 12:27; Admin Dose 1 UNIT; Start 09/29/16 at 00:00 IV Flush (NS 10 ml) 10 ml PRN PRN IV FLUSH LINE; Start 09/29/16 at 20:30 Epoetin Jeffry 6000 units 6,000 units MoWeFr@17 SC Last administered on 21:09; Admin Dose 6,000 UNITS; Start 10/01/16 at 17:00 Vancomycin HCl 1.25 gm/Sodium Chloride 250 ml @ 83.333 mls/ hr Q96H IVPB Last administered on 10/13/16 17:17; Admin Dose 83.333 MLS/HR; Start 10/09/16 at 17: 00 Norepinephrine 16 mg/Dextrose 500 ml @ 0 mls/hr TITRATE IV Last administered on 10/17/16 08:14; Admin Dose 56.25 MLS/HR; Start 10/10/16 at 08:30 Levetiracetam 500 mg/Sodium Chloride 105 ml @ 420 mls/hr Q12 IVPB Last administered on 10/17/16 08:34; Admin Dose 420 MLS/HR; Start 10/10/16 at 21:00 Colistimethate Sodium 75 mg/ Sodium Chloride 100 ml @ 200 mls/hr DAILY IVPB Last administered on 10/16/16 08:56; Admin Dose 200 MLS/HR; Start 10/13/16 at 16:00 Metronidazole 100 ml @ 100 mls/hr Q8 IVPB Last administered on 10/17/16 05:44 ; Admin Dose 100 MLS/HR; Start 10/13/16 at 22:00 Dextrose 1,000 ml @ 50 mls/hr Q20H IV Last administered on 10/17/16 08:04; Admin Dose 50 MLS/HR; Start 10/14/16 at 20:00 Norepinephrine (Levophed) 250 ml @ 0 mls/hr TITRATE IV ; Start 10/17/16 at 08:30 ; Stop 10/17/16 at 09:30 KENIA TURCIOS MD Oct 17, 2016 09:12
[2016-10-17] MEDS: CHLORHEXIDINE GLUCONATE 15 ML UD CUP MM SCH ×2 (09:24→21:36)
[2016-10-17] MEDS: COLISTIMETHATE 75 MG in SOD CHLORIDE 0.9% 100 ML IVPB SCH (09:24)
--- NOTE | 2016-10-17 12:12 | PN ---
DATE: 10/17/2016 SUBJECTIVE: No events. The patient is nonverbal, noncommunicative, on pressors , vent support. LABORATORY: WBC 4, platelets 2. INDWELLINGS: Trach, PEG, Brar, right subclavian PermCath, left upper extremity PICC line. ANTIMICROBIALS: 1. Flagyl. 2. Colistin. 3. Vancomycin IV. PHYSICAL EXAMINATION: GENERAL: Chronically ill-appearing, middle-aged man who is lying comfortably in bed. HEENT: Head atraumatic, normocephalic. Sclerae anicteric. NECK: Obese. CHEST: Chest rise symmetrical. Breath sounds diminished. HEART: S1, S2. ABDOMEN: Distended. Bowel tones hypoactive. EXTREMITIES: Contractured. SKIN: Severe anasarca with multiple chronic infected decubitus. ASSESSMENT: 1. Septic shock with multisystem organ failure. 2. Multiple decubitus. 3. Multidrug resistant bacteremia. 4. Chronic respiratory failure. 5. Anemia with progressive thrombocytopenia. 6. Encephalopathy. PLAN: The patient is doing poorly. He is DNR status. Hemodialysis was discontinued and aggressive measures as well were discontinued. We will stop his antibiotics and sign off. Dictated By: ARUN DIANA [employer]BER SPRINKLER for KAT VYAS/NIKOLAI Conf#: [id number] DID#: [id number] MTDD
--- NOTE | 2016-10-17 13:24 | CONS ---
Date/Time of Note Date/Time of Note DATE: 10/17/16 TIME: :22 Assessment/Plan Assessment/Plan Chief Complaint/Hosp Course 56 year old male with mental retardation, ventilator dependent respiratory failure, ESRD on HD with continue GI bleed. Pt's GI bleed has subsided.Family meeting to be held given patient's poor prognosis. # Normocytic anemia, likely multifactorial due to GI bleed, chronic kidney disease, likely chronic inflammation - Hg is currently stable - Iron panel suggests anemia of chronic inflammation, high ferritin as expected. ; B12/folate WNL, LDH not elevated, retic count inappropriately low - Continue epo. - Per ethics committee and primary team, no transfusions unless patient actively bleeding # Thrombocytopenia,- platelet continue to fall. 11 today. Pt is HIT positive but optical density low still making HIT unlikely. -Possible contribution due to sepsis as well particularly in the setting of recent fever, and now with GNR bacteremia. DIC panel may suggest component of DIC with prolongs coags and elevated D dimer with rare schistocytes on smear though fibrin split products not elevated. HIV and Hep panel negative. Peripheral smear reviewed by pathology and confirms decreased platelet count, no microangiopathic changes, rare schistocytes, occasional metamyelocytes, mild bandemia, and no blasts. Abdominal US was technically limited study due to patient's inability to cooperate demonstrating mild hepatomegaly with a slightly coarsened echotexture which may indicate steatosis/hepatic cellular disease. - will transfuse platelets only if evidence of active GI bleed per ethics committee meeting and primary team - NO HEPARIN for patient GI bleed and thrombocytopenia Problems: Consultation Date/Type/Reason Admit Date/Time Sep 06, 2016 at 22:27 Initial Consult Date 10/03/16 Type of Consultation: Hematology Referring Provider: FREDDY COELLO MD 24 HR Interval Summary Free Text/Dictation No further coffee ground emesis. Plan for no transfusions unless actively bleeding per ethics committee and primary team. Exam/Review of Systems Vital Signs Vitals Vital Signs Date Time Temp Pulse Resp B/P Pulse Ox O2 Delivery O2 Flow Rate FiO2 10/17/16 13:07 102 16 97 30 10/17/16 13:00 95/53 Mechanical Ventilator 10/17/16 12:00 98.4 Intake and Output 10/16/16 10/16/16 10/17/16 15:00 23:00 07:00 Intake Total 1005.00 ml 1055.00 ml 925.00 ml Output Total 0 ml 0 ml Balance 1005.00 ml 1055.00 ml 925.00 ml Exam Constitutional: frail, non-verbal ENMT: other (trach to vent) Neck: non-tender, supple Respiratory: diminished breath sounds Cardiovascular: other (tachycardia) Gastrointestinal: soft Musculoskeletal: nl extremities to inspection, nl gait and stance Extremities: normal pulses Results Result Diagram: 10/17/16 0400 10/17/16 0400 Results 24 hrs Laboratory Tests Test 10/16/16 17:46 10/16/16 20:33 10/16/16 21:24 10/16/16 22:27 Bedside Glucose 92 76 76 85 Test 10/16/16 23:18 10/17/16 04:00 10/17/16 05:39 10/17/16 11:38 Bedside Glucose 97 103 70 White Blood Count 4.0 L Red Blood Count 3.27 L Hemoglobin 9.5 L Hematocrit 28.8 L Mean Corpuscular Volume 88.1 Mean Corpuscular Hemoglobin 29.1 Mean Corpuscular Hemoglobin Concent 33.0 Red Cell Distribution Width 18.3 H Platelet Count 2 #*L Mean Platelet Volume 10.9 H Neutrophils % 63.6 Lymphocytes % 15.4 Monocytes % 16.2 H Eosinophils % 3.8 Basophils % 0.5 Nucleated Red Blood Cells % 0.0 Neutrophils # 2.5 Lymphocytes # 0.6 L Monocytes # 0.6 Eosinophils # 0.2 Basophils # 0.0 Nucleated Red Blood Cells # 0.0 Sodium Level 129 L Potassium Level 3.3 L Chloride Level 100 Carbon Dioxide Level 21 Anion Gap 11 Blood Urea Nitrogen 61 H Creatinine 1.81 H Glucose Level 86 Calcium Level 7.3 L Medications Medications Current Medications Acetaminophen (Tylenol Liquid) 640 mg Q6H PRN GTB PAIN OR TEMP ABOVE 38C Last administered on 10/07/16 17:51; Admin Dose 640 MG; Start 09/06/16 at 22:30 Allopurinol (Zyloprim) 200 mg DAILY GTB Last administered on 10/16/16 08:34; Admin Dose 200 MG; Start 09/07/16 at 09:00; Status Future Hold Ascorbic Acid (Vitamin C) 500 mg BID GTB Last administered on 10/16/16 08:34; Admin Dose 500 MG; Start 09/07/16 at 09:00; Status Future Hold Calcitriol (Rocaltrol) 0.25 mcg DAILY GTB Last administered on 10/16/16 08:34 ; Admin Dose 0.25 MCG; Start 09/07/16 at 09:00; Status Future Hold Chlorhexidine Gluconate (Peridex) 15 ml BID MM Last administered on 10/17/16 09:24; Admin Dose 15 ML; Start 09/07/16 at 09:00 Metoclopramide HCl (Reglan) 5 mg Q8H PRN GTB NAUSEA AND/OR VOMITING; Start 09/06 at 22:30; Status Future Hold Sucralfate (Carafate Susp) 1 gm BID GTB Last administered on 10/16/16 08:33; Admin Dose 1 GM; Start 09/07/16 at 09:00; Status Future Hold Ondansetron HCl (Zofran Inj) 4 mg Q6H PRN IV NAUSEA AND/OR VOMITING Last administered on 09/17/16 00:52; Admin Dose 4 MG; Start 09/06/16 at 22:30 Morphine Sulfate (morphine) 2 mg Q4H PRN IV PAIN LEVEL 7-10 Last administered on 10/16/16 20:31; Admin Dose 2 MG; Start 09/06/16 at 22:30 Metoclopramide HCl (Reglan) 5 mg Q6H PRN IV RESIDUALS > 100 Last administered on 10/16/16 20:42; Admin Dose 5 MG; Start 09/10/16 at 19:00 Clonidine (Catapres) 0.1 mg Q6H PRN GTB ELEVATED SYSTOLIC BP Last administered on 09/15/16 07:04; Admin Dose 0.1 MG; Start 09/13/16 at 23:00 Hydralazine HCl (Apresoline) 10 mg Q6H PRN IV ELEVATED SYSTOLIC BP Last administered on 09/15/16 02:08; Admin Dose 10 MG; Start 09/15/16 at 01:50 Collagenase (Santyl) 1 applic DAILY TOP Last administered on 10/16/16 08:35; Admin Dose 1 APPLIC; Start 09/18/16 at 09:00 Glycopyrrolate (Robinul) 1 mg Q8 GTB Last administered on 10/16/16 05:47; Admin Dose 1 MG; Start 09/19/16 at 09:30; Status Future Hold Miscellaneous Information 1 ea NOTE XX ; Start 09/28/16 at 09:00 Glucose (Glutose) 15 gm Q15M PRN PO DECREASED GLUCOSE; Start 09/28/16 at 09:00 Glucose (Glutose) 22.5 gm Q15M PRN PO DECREASED GLUCOSE; Start 09/28/16 at 09:00 Dextrose (D50w Syringe) 25 ml Q15M PRN IV DECREASED GLUCOSE Last administered on 10/16/16 05:47; Admin Dose 25 ML; Start 09/28/16 at 09:00 Dextrose (D50w Syringe) 50 ml Q15M PRN IV DECREASED GLUCOSE; Start 09/28/16 at 09:00 Glucagon (Glucagen) 1 mg Q15M PRN IM DECREASED GLUCOSE; Start 09/28/16 at 09:00 Glucose (Glutose) 15 gm Q15M PRN BUCCAL DECREASED GLUCOSE; Start 09/28/16 at 09: 00 Insulin Aspart (Novolog Insulin Pen) NOVOLOG *MILD* ALGORI... Q6 SC Last administered on 10/11/16 12:27; Admin Dose 1 UNIT; Start 09/29/16 at 00:00 IV Flush (NS 10 ml) 10 ml PRN PRN IV FLUSH LINE; Start 09/29/16 at 20:30 Epoetin Jeffry 6000 units 6,000 units MoWeFr@17 SC Last administered on 21:09; Admin Dose 6,000 UNITS; Start 10/01/16 at 17:00 Norepinephrine 16 mg/Dextrose 500 ml @ 0 mls/hr TITRATE IV Last administered on 10/17/16 08:14; Admin Dose 56.25 MLS/HR; Start 10/10/16 at 08:30 Levetiracetam 500 mg/Sodium Chloride 105 ml @ 420 mls/hr Q12 IVPB Last administered on 10/17/16 08:34; Admin Dose 420 MLS/HR; Start 10/10/16 at 21:00 Metronidazole 100 ml @ 100 mls/hr Q8 IVPB Last administered on 10/17/16 05:44 ; Admin Dose 100 MLS/HR; Start 10/13/16 at 22:00 Dextrose (D10w) 1,000 ml @ 50 mls/hr Q20H IV Last administered on 10/17/16t 08 :04; Admin Dose 50 MLS/HR; Start 10/14/16 at 20:00 NORMA TALBOT MD Oct 17, 2016 13:24
--- NOTE | 2016-10-17 14:13 | PN ---
Date/Time of Note Date/Time of Note DATE: 10/17/16 TIME: 14:08 Assessment/Plan VTE Prophylaxis VTE Prophylaxis Intervention: SCD's Lines/Catheters IV Catheter Type ([facility] PICC Line Central line still needed: Yes Urinary Cath still in place: No Assessment/Plan Chief Complaint/Hosp Course ASSESSMENT AND PLAN: - Shock hypovolemic, possibly septic. Continue ICU care, IVF, pressors, blood transfusion. -Severe anemia anemia secondary to GI bleed. Continue Protonix drip. Plan for possible endoscopy when patient is more stable. Continue blood transfusion. - Heparin-induced thrombocytopenia, hold heparin, patient status post platelets transfusion. Dr. Coughlin is following in hematology consultation. - GNR bacteremia, status of the PICC line exchange. - Severe anemia 2 GI bleed. Continue to monitor hemoglobin and hematocrit. Dr. Singh is following in gastroenterology consultation. - Acute kidney failure on chronic kidney disease. Continue to monitor BUN and creatinine. Dr. Mk Purdy is following in nephrology consultation. Patient with worsening renal function. Started on Hemodialysis during this admission. - Pancytopenia 2 chronic inflammation and sepsis. - Ventilator-dependent respiratory failure. Dr. Aragon is following in pulmonology consultation. Continue ventilator support, bronchodilators. - HCAP on admission. Status post treatment. - Dysphagia with PEG. - History of seizure disorder. Continue patient on Keppra. - Diastolic dysfunction congestive heart failure with preserved ejection fraction of 60%. - S/p sepsis on admission. Dr. Guy is following patient in infectious disease consultation. - Status post cerebrovascular accident, status post craniotomy. - Mental retardation. - DNR status Per ethics committee hemodialysis and and other aggressive interventions stopped 10/15. Continue Protonix for peptic ulcer disease prophylaxis. Further recommendations based on clinical course. Plan of care discussed with Dr. Mcelroy. Problems: Exam/Review of Systems Vital Signs Vitals Vital Signs Date Time Temp Pulse Resp B/P Pulse Ox O2 Delivery O2 Flow Rate FiO2 10/17/16 13:07 102 16 97 30 10/17/16 13:00 95/53 Mechanical Ventilator 10/17/16 12:00 98.4 Intake and Output 10/16/16 10/16/16 10/17/16 15:00 23:00 07:00 Intake Total 1005.00 ml 1055.00 ml 925.00 ml Output Total 0 ml 0 ml Balance 1005.00 ml 1055.00 ml 925.00 ml Exam Constitutional: alert, well developed Head: atraumatic, normocephalic Eyes: nl conjunctiva ENMT: nl external ears & nose Neck: jvd, supple Respiratory: clear to auscultation Cardiovascular: regular rate and rhythm Gastrointestinal: nl liver, spleen, soft Genitourinary - Male: nl penis, other ( Brar catheter ) Musculoskeletal: nl extremities to inspection, Extremities: normal pulses, bilateral LE s/p vascular intervention Results Result Diagram: 10/17/16 0400 10/17/16 0400 Results 24 hrs Laboratory Tests Test 10/16/16 17:46 10/16/16 20:33 10/16/16 21:24 10/16/16 22:27 Bedside Glucose 92 76 76 85 Test 10/16/16 23:18 10/17/16 04:00 10/17/16 05:39 10/17/16 11:38 Bedside Glucose 97 103 70 White Blood Count 4.0 L Red Blood Count 3.27 L Hemoglobin 9.5 L Hematocrit 28.8 L Mean Corpuscular Volume 88.1 Mean Corpuscular Hemoglobin 29.1 Mean Corpuscular Hemoglobin Concent 33.0 Red Cell Distribution Width 18.3 H Platelet Count 2 #*L Mean Platelet Volume 10.9 H Neutrophils % 63.6 Lymphocytes % 15.4 Monocytes % 16.2 H Eosinophils % 3.8 Basophils % 0.5 Nucleated Red Blood Cells % 0.0 Neutrophils # 2.5 Lymphocytes # 0.6 L Monocytes # 0.6 Eosinophils # 0.2 Basophils # 0.0 Nucleated Red Blood Cells # 0.0 Sodium Level 129 L Potassium Level 3.3 L Chloride Level 100 Carbon Dioxide Level 21 Anion Gap 11 Blood Urea Nitrogen 61 H Creatinine 1.81 H Glucose Level 86 Calcium Level 7.3 L Medications Medications Current Medications Acetaminophen (Tylenol Liquid) 640 mg Q6H PRN GTB PAIN OR TEMP ABOVE 38C Last administered on 10/07/16 17:51; Admin Dose 640 MG; Start 09/06/16 at 22:30 Allopurinol (Zyloprim) 200 mg DAILY GTB Last administered on 10/16/16 08:34; Admin Dose 200 MG; Start 09/07/16 at 09:00; Status Future Hold Ascorbic Acid (Vitamin C) 500 mg BID GTB Last administered on 10/16/16 08:34; Admin Dose 500 MG; Start 09/07/16 at 09:00; Status Future Hold Calcitriol (Rocaltrol) 0.25 mcg DAILY GTB Last administered on 10/16/16 08:34 ; Admin Dose 0.25 MCG; Start 09/07/16 at 09:00; Status Future Hold Chlorhexidine Gluconate (Peridex) 15 ml BID MM Last administered on 10/17/16 09:24; Admin Dose 15 ML; Start 09/07/16 at 09:00 Metoclopramide HCl (Reglan) 5 mg Q8H PRN GTB NAUSEA AND/OR VOMITING; Start 09/06 at 22:30; Status Future Hold Sucralfate (Carafate Susp) 1 gm BID GTB Last administered on 10/16/16 08:33; Admin Dose 1 GM; Start 09/07/16 at 09:00; Status Future Hold Ondansetron HCl (Zofran Inj) 4 mg Q6H PRN IV NAUSEA AND/OR VOMITING Last administered on 09/17/16 00:52; Admin Dose 4 MG; Start 09/06/16 at 22:30 Morphine Sulfate (morphine) 2 mg Q4H PRN IV PAIN LEVEL 7-10 Last administered on 10/16/16 20:31; Admin Dose 2 MG; Start 09/06/16 at 22:30 Metoclopramide HCl (Reglan) 5 mg Q6H PRN IV RESIDUALS > 100 Last administered on 10/16/16 20:42; Admin Dose 5 MG; Start 09/10/16 at 19:00 Clonidine (Catapres) 0.1 mg Q6H PRN GTB ELEVATED SYSTOLIC BP Last administered on 09/15/16 07:04; Admin Dose 0.1 MG; Start 09/13/16 at 23:00 Hydralazine HCl (Apresoline) 10 mg Q6H PRN IV ELEVATED SYSTOLIC BP Last administered on 09/15/16 02:08; Admin Dose 10 MG; Start 09/15/16 at 01:50 Collagenase (Santyl) 1 applic DAILY TOP Last administered on 10/16/16 08:35; Admin Dose 1 APPLIC; Start 09/18/16 at 09:00 Glycopyrrolate (Robinul) 1 mg Q8 GTB Last administered on 10/16/16 05:47; Admin Dose 1 MG; Start 09/19/16 at 09:30; Status Future Hold Miscellaneous Information 1 ea NOTE XX ; Start 09/28/16 at 09:00 Glucose (Glutose) 15 gm Q15M PRN PO DECREASED GLUCOSE; Start 09/28/16 at 09:00 Glucose (Glutose) 22.5 gm Q15M PRN PO DECREASED GLUCOSE; Start 09/28/16 at 09:00 Dextrose (D50w Syringe) 25 ml Q15M PRN IV DECREASED GLUCOSE Last administered on 10/16/16 05:47; Admin Dose 25 ML; Start 09/28/16 at 09:00 Dextrose (D50w Syringe) 50 ml Q15M PRN IV DECREASED GLUCOSE; Start 09/28/16 at 09:00 Glucagon (Glucagen) 1 mg Q15M PRN IM DECREASED GLUCOSE; Start 09/28/16 at 09:00 Glucose (Glutose) 15 gm Q15M PRN BUCCAL DECREASED GLUCOSE; Start 09/28/16 at 09: 00 Insulin Aspart (Novolog Insulin Pen) NOVOLOG *MILD* ALGORI... Q6 SC Last administered on 10/11/16 12:27; Admin Dose 1 UNIT; Start 09/29/16 at 00:00 IV Flush (NS 10 ml) 10 ml PRN PRN IV FLUSH LINE; Start 09/29/16 at 20:30 Epoetin Jeffry 6000 units 6,000 units MoWeFr@17 SC Last administered on 21:09; Admin Dose 6,000 UNITS; Start 10/01/16 at 17:00 Norepinephrine 16 mg/Dextrose 500 ml @ 0 mls/hr TITRATE IV Last administered on 10/17/16 08:14; Admin Dose 56.25 MLS/HR; Start 10/10/16 at 08:30 Levetiracetam 500 mg/Sodium Chloride 105 ml @ 420 mls/hr Q12 IVPB Last administered on 10/17/16 08:34; Admin Dose 420 MLS/HR; Start 10/10/16 at 21:00 Metronidazole 100 ml @ 100 mls/hr Q8 IVPB Last administered on 10/17/16 14:04 ; Admin Dose 100 MLS/HR; Start 10/13/16 at 22:00 Dextrose (D10w) 1,000 ml @ 50 mls/hr Q20H IV Last administered on 10/17/16t 08 :04; Admin Dose 50 MLS/HR; Start 10/14/16 at 20:00 QUIN ORTIZ Oct 17, 2016 14:13
--- NOTE | 2016-10-17 15:50 | PN ---
DATE: 10/17/2016 The patient is in ICU. He is unresponsive on ventilator support through tracheostomy. PHYSICAL EXAMINATION: VITAL SIGNS: Show blood pressure 98/56 being maintained on Levophed drip at 30 mcg, heart rate is 1 08, sinus tachycardia, respiratory rate is 21, pulse oximetry shows 96% saturation with 30% inhaled oxygen concentration. RESPIRATORY: The patient is breathing comfortably with the ventilator support. Tracheostomy secreti ons are minimal. No bleeding is seen. HEART: Regular rhythm with sinus tachycardia. CHEST: Breath sounds are heard bilaterally, diminished in both the lower lung [place] with a few int ermittent rales and rhonchi. ABDOMEN: Soft, not distended. EXTREMITIES: Show generalized edema. LABORATORY DATA: From today shows sodium 129, potassium 3.3, bicarbonate of 21, BUN 61, creatinine 1.81. The CBC shows a WBC 4000, hemoglobin 9.5, hematocrit 28.8, platelets 2000. IMPRESSION: 1. Gram-negative septic shock with gram-negative sepsis from carbapenem-resistant Klebsiella pneumo niae. 2. Chronic respiratory failure, ventilator dependent. 3. Acute renal failure. 4. History of seizure disorder. 5. Chronic encephalopathy. 6. Pancytopenia. 7. History of developmental delay. PLAN: The patient has been evaluated by the hospice personnel and hospice care will be commencing so on once the family agrees and signs the appropriate papers. The patient is DNR at present. Dialysi s has been stopped. The overall prognosis is extremely poor. Comfort measures and supportive therap y to be continued while in the hospice care. Dictated By: VEENA STREETER MD SR/NTS Conf#: [id number] DID#: [id number]
[2016-10-17] MEDS: EPOETIN 3000 UNITS/1 ML INJ (ESRD) SC SCH (18:10)
[2016-10-17] MEDS: morphine 2 MG INJ IV PRN (20:09)
[2016-10-18] VITALS (81 sets, daily range): BP systolic 42–87; BP diastolic 25–51; PULSE 0–117; RESP 0–25
[2016-10-18] MEDS: LEVALBUTEROL (HFA) 15 GM INHALER INH SCH ×4 (02:10→20:27)
[2016-10-18] MEDS: IPRATROPIUM (HFA) 12.9 GM INHALER INH SCH ×4 (02:10→20:27)
[2016-10-18] MEDS: morphine 2 MG INJ IV PRN ×2 (03:47→03:54)
[2016-10-18] MEDS: DEXTROSE 10% 1,000 ML IV SCH (04:30)
[2016-10-18] MEDS: metroNIDAZOLE 500 MG/NS (PMX) 100 ML IVPB SCH (05:43)
[2016-10-18] MEDS: INSULIN ASPART [NOVOLOG] 3 ML PEN SC SCH ×4 (06:00→18:00)
[2016-10-18] MEDS: DEXTROSE 50% 50 ML SYRINGE IV PRN (06:15)
[2016-10-18] MEDS: LEVETIRACETAM IV 500 MG in SOD CHLORIDE 0.9% 100 ML IVPB SCH (09:30)
[2016-10-18] MEDS: CHLORHEXIDINE GLUCONATE 15 ML UD CUP MM SCH (09:30)
[2016-10-18] MEDS: COLLAGENASE 30 GM TUBE TOP SCH (09:30)
--- NOTE | 2016-10-18 10:02 | CONS ---
Date/Time of Note Date/Time of Note DATE: 10/18/16 TIME: 10:01 Assessment/Plan Assessment/Plan Additional Assessment/Plan 1. Acute kidney injury on possible chronic kidney disease unknown stage secondary to severe prerenal azotemia causing ischemic acute tubular necrosis in the setting of severe anemia.- continue to have Anuria with uremic symptoms and GI bleeding- started on HD during this admission 2. Severe anemia,s/p PRBC 3. Chronic respiratory failure, status post tracheostomy, on vent. 4. Pancytopenia. 5. History of a seizure disorder. 6. thrombocytopenia severe 7. Hypotension due to bleeding/sepsis PLAN: DNR no plan for further HD as per meeting decision will follow up if change in decision currently SBP in 80s on levophed will continue to follow up , Consultation Date/Type/Reason Admit Date/Time Sep 06, 2016 at 22:27 Initial Consult Date Aug Type of Consultation: NEPHROLOGY Referring Provider: FREDDY COELLO MD 24 HR Interval Summary Free Text/Dictation BP systolic in 70s, pt lethargic unrepsonsive Exam/Review of Systems Vital Signs Vitals Vital Signs Date Time Temp Pulse Resp B/P Pulse Ox O2 Delivery O2 Flow Rate FiO2 10/18/16 09:25 105 14 95 30 10/18/16 08:45 77/43 Mechanical Ventilator 10/18/16 04:00 98.1 Intake and Output 10/17/16 10/17/16 10/18/16 14:59 22:59 06:59 Intake Total 830.00 ml 655.75 ml 1310 ml Output Total 300 ml Balance 830.00 ml 655.75 ml 1010 ml Exam GENERAL: lethargic unresponsive HEENT: Head atraumatic, normocephalic. Sclerae anicteric. Buccal mucosa dry. NECK: Obese. Tracheostomy present. There is some drainage present around trach site. CHEST: Rise symmetrical. Breath sounds with bilateral scattered crackles. HEART: S1, S2. ABDOMEN: Distended, soft. Bowel tones hypoactive. EXTREMITIES: Contractured with bilateral edema. SKIN: With severe anasarca and multiple chronic wounds. Results Result Diagram: 10/17/16 0400 10/17/16 0400 Results 24 hrs Laboratory Tests Test 10/17/16 11:38 10/17/16 18:11 10/18/16 01:27 10/18/16 06:08 Bedside Glucose 70 94 73 67 L Test 10/18/16 06:34 Bedside Glucose 109 Medications Medications Current Medications Acetaminophen (Tylenol Liquid) 640 mg Q6H PRN GTB PAIN OR TEMP ABOVE 38C Last administered on 10/07/16 17:51; Admin Dose 640 MG; Start 09/06/16 at 22:30 Allopurinol (Zyloprim) 200 mg DAILY GTB Last administered on 10/16/16 08:34; Admin Dose 200 MG; Start 09/07/16 at 09:00; Status Future Hold Ascorbic Acid (Vitamin C) 500 mg BID GTB Last administered on 10/16/16 08:34; Admin Dose 500 MG; Start 09/07/16 at 09:00; Status Future Hold Calcitriol (Rocaltrol) 0.25 mcg DAILY GTB Last administered on 10/16/16 08:34 ; Admin Dose 0.25 MCG; Start 09/07/16 at 09:00; Status Future Hold Chlorhexidine Gluconate (Peridex) 15 ml BID MM Last administered on 10/18/16 09:30; Admin Dose 15 ML; Start 09/07/16 at 09:00 Metoclopramide HCl (Reglan) 5 mg Q8H PRN GTB NAUSEA AND/OR VOMITING; Start 09/06 at 22:30; Status Future Hold Sucralfate (Carafate Susp) 1 gm BID GTB Last administered on 10/16/16 08:33; Admin Dose 1 GM; Start 09/07/16 at 09:00; Status Future Hold Ondansetron HCl (Zofran Inj) 4 mg Q6H PRN IV NAUSEA AND/OR VOMITING Last administered on 09/17/16 00:52; Admin Dose 4 MG; Start 09/06/16 at 22:30 Morphine Sulfate (morphine) 2 mg Q4H PRN IV PAIN LEVEL 7-10 Last administered on 10/18/16 03:54; Admin Dose 2 MG; Start 09/06/16 at 22:30 Metoclopramide HCl (Reglan) 5 mg Q6H PRN IV RESIDUALS > 100 Last administered on 10/16/16 20:42; Admin Dose 5 MG; Start 09/10/16 at 19:00 Clonidine (Catapres) 0.1 mg Q6H PRN GTB ELEVATED SYSTOLIC BP Last administered on 09/15/16 07:04; Admin Dose 0.1 MG; Start 09/13/16 at 23:00 Hydralazine HCl (Apresoline) 10 mg Q6H PRN IV ELEVATED SYSTOLIC BP Last administered on 09/15/16 02:08; Admin Dose 10 MG; Start 09/15/16 at 01:50 Collagenase (Santyl) 1 applic DAILY TOP Last administered on 10/18/16 09:30; Admin Dose 1 APPLIC; Start 09/18/16 at 09:00 Glycopyrrolate (Robinul) 1 mg Q8 GTB Last administered on 10/16/16 05:47; Admin Dose 1 MG; Start 09/19/16 at 09:30; Status Future Hold Miscellaneous Information 1 ea NOTE XX ; Start 09/28/16 at 09:00 Glucose (Glutose) 15 gm Q15M PRN PO DECREASED GLUCOSE; Start 09/28/16 at 09:00 Glucose (Glutose) 22.5 gm Q15M PRN PO DECREASED GLUCOSE; Start 09/28/16 at 09:00 Dextrose (D50w Syringe) 25 ml Q15M PRN IV DECREASED GLUCOSE Last administered on 10/18/16 06:15; Admin Dose 25 ML; Start 09/28/16 at 09:00 Dextrose (D50w Syringe) 50 ml Q15M PRN IV DECREASED GLUCOSE; Start 09/28/16 at 09:00 Glucagon (Glucagen) 1 mg Q15M PRN IM DECREASED GLUCOSE; Start 09/28/16 at 09:00 Glucose (Glutose) 15 gm Q15M PRN BUCCAL DECREASED GLUCOSE; Start 09/28/16 at 09: 00 Insulin Aspart (Novolog Insulin Pen) NOVOLOG *MILD* ALGORI... Q6 SC Last administered on 10/11/16 12:27; Admin Dose 1 UNIT; Start 09/29/16 at 00:00 IV Flush (NS 10 ml) 10 ml PRN PRN IV FLUSH LINE; Start 09/29/16 at 20:30 Epoetin Jeffry 6000 units 6,000 units MoWeFr@17 SC Last administered on 18:10; Admin Dose 6,000 UNITS; Start 10/01/16 at 17:00 Norepinephrine 16 mg/Dextrose 500 ml @ 0 mls/hr TITRATE IV Last administered on 10/18/16 09:29; Admin Dose 56.25 MLS/HR; Start 10/10/16 at 08:30 Levetiracetam 500 mg/Sodium Chloride 105 ml @ 420 mls/hr Q12 IVPB Last administered on 10/18/16 09:30; Admin Dose 420 MLS/HR; Start 10/10/16 at 21:00 Dextrose (D10w) 1,000 ml @ 50 mls/hr Q20H IV Last administered on 10/18/16 04 :30; Admin Dose 50 MLS/HR; Start 10/14/16 at 20:00 KENIA TURCIOS MD Oct 18, 2016 10:02
--- NOTE | 2016-10-18 11:33 | PN ---
DATE: 10/18/2016 SUBJECTIVE: The patient is in ICU on the ventilator support through tracheostomy. He is unresponsi ve. He is on maximum dose of Levophed still. VITAL SIGNS: His blood pressure is 77/43, pulse rate is 103, respirations 12. Pulse oximetry shows 95% saturation on 30% inhaled oxygen concentration. His breathing appears unlabored. NECK: Tracheostomy secretions are minimal. No bleeding is seen. HEART: Regular rhythm with sinus tachycardia. CHEST: Breath sounds are diminished bilaterally. ABDOMEN: Soft. No distention is seen. EXTREMITIES: Show generalized edema. His urine output is 4 with an intake of 2795 mL, his output is about 300 mL. LABORATORY DATA: No lab tests have been done. IMPRESSION: 1. Gram-negative sepsis with shock. 2. Chronic respiratory failure, ventilator dependent. 3. Acute renal failure. 4. History of seizure disorder. 5. Chronic encephalopathy. 6. Pancytopenia. 7. History of developmental delay. The patient has been progressively deteriorating. He appears pre-terminal. The dialysis has been s topped and the patient is DNR. The prognosis is poor. Dictated By: VEENA STREETER MD SR/NTS Conf#: [id number] DID#: [id number]
--- NOTE | 2016-10-18 12:38 | CONS ---
Date/Time of Note Date/Time of Note DATE: 10/18/16 TIME: 12:37 Assessment/Plan Assessment/Plan Chief Complaint/Hosp Course 56 year old male with mental retardation, ventilator dependent respiratory failure, ESRD on HD with continue GI bleed. Pt's GI bleed has subsided. # Normocytic anemia, likely multifactorial due to GI bleed, chronic kidney disease, likely chronic inflammation - Hg is currently stable as of 10/17/16 - Iron panel suggests anemia of chronic inflammation, high ferritin as expected. ; B12/folate WNL, LDH not elevated, retic count inappropriately low - Continue epo. - Per primary team, no transfusions unless patient actively bleeding # Thrombocytopenia - platelet continue to fall. 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 - possible contribution due to sepsis as well particularly in the setting of recent fever, and now with GNR bacteremia. DIC panel may suggest component of DIC with prolongs coags and elevated D dimer with rare schistocytes on smear though fibrin split products not elevated. HIV and Hep panel negative. Peripheral smear reviewed by pathology and confirms decreased platelet count, no microangiopathic changes, rare schistocytes, occasional metamyelocytes, mild bandemia, and no blasts. Abdominal US was technically limited study due to patient's inability to cooperate demonstrating mild hepatomegaly with a slightly coarsened echotexture which may indicate steatosis/hepatic cellular disease. - will transfuse platelets only if evidence of active GI bleed per primary team Problems: Consultation Date/Type/Reason Admit Date/Time Sep 06, 2016 at 22:27 Initial Consult Date 10/03/16 Type of Consultation: Hematology Referring Provider: FREDDY COELLO MD 24 HR Interval Summary Free Text/Dictation Patient progressively deteriorating. Pending hospice once family signs papers. Exam/Review of Systems Vital Signs Vitals Vital Signs Date Time Temp Pulse Resp B/P Pulse Ox O2 Delivery O2 Flow Rate FiO2 10/18/16 12:15 104 15 66/42 Mechanical Ventilator 10/18/16 12:00 97.9 10/18/16 11:23 98 30 Intake and Output 10/17/16 10/17/16 10/18/16 15:00 23:00 07:00 Intake Total 942.50 ml 449.50 ml 1416.25 ml Output Total 300 ml Balance 942.50 ml 449.50 ml 1116.25 ml Exam Constitutional: frail, non-verbal ENMT: other (trach to vent) Neck: non-tender, supple Respiratory: diminished breath sounds Cardiovascular: other (tachycardia) Gastrointestinal: soft Musculoskeletal: nl extremities to inspection, nl gait and stance Extremities: normal pulses Results Result Diagram: 10/17/160 10/17/160 Results 24 hrs Laboratory Tests Test 10/17/16 18:11 10/18/16 01:27 10/18/16 06:08 10/18/16 06:34 Bedside Glucose 94 73 67 L 109 Test 10/18/16 11:25 Bedside Glucose 87 Medications Medications Current Medications Acetaminophen (Tylenol Liquid) 640 mg Q6H PRN GTB PAIN OR TEMP ABOVE 38C Last administered on 10/07/16 17:51; Admin Dose 640 MG; Start 09/06/16 at 22:30 Allopurinol (Zyloprim) 200 mg DAILY GTB Last administered on 10/16/16 08:34; Admin Dose 200 MG; Start 09/07/16 at 09:00; Status Future Hold Ascorbic Acid (Vitamin C) 500 mg BID GTB Last administered on 10/16/16 08:34; Admin Dose 500 MG; Start 09/07/16 at 09:00; Status Future Hold Calcitriol (Rocaltrol) 0.25 mcg DAILY GTB Last administered on 10/16/16 08:34 ; Admin Dose 0.25 MCG; Start 09/07/16 at 09:00; Status Future Hold Chlorhexidine Gluconate (Peridex) 15 ml BID MM Last administered on 10/18/16 09:30; Admin Dose 15 ML; Start 09/07/16 at 09:00 Metoclopramide HCl (Reglan) 5 mg Q8H PRN GTB NAUSEA AND/OR VOMITING; Start 09/06 at 22:30; Status Future Hold Sucralfate (Carafate Susp) 1 gm BID GTB Last administered on 10/16/16 08:33; Admin Dose 1 GM; Start 09/07/16 at 09:00; Status Future Hold Ondansetron HCl (Zofran Inj) 4 mg Q6H PRN IV NAUSEA AND/OR VOMITING Last administered on 09/17/16 00:52; Admin Dose 4 MG; Start 09/06/16 at 22:30 Morphine Sulfate (morphine) 2 mg Q4H PRN IV PAIN LEVEL 7-10 Last administered on 10/18/16 03:54; Admin Dose 2 MG; Start 09/06/16 at 22:30 Metoclopramide HCl (Reglan) 5 mg Q6H PRN IV RESIDUALS > 100 Last administered on 10/16/16 20:42; Admin Dose 5 MG; Start 09/10/16 at 19:00 Clonidine (Catapres) 0.1 mg Q6H PRN GTB ELEVATED SYSTOLIC BP Last administered on 09/15/16 07:04; Admin Dose 0.1 MG; Start 09/13/16 at 23:00 Hydralazine HCl (Apresoline) 10 mg Q6H PRN IV ELEVATED SYSTOLIC BP Last administered on 09/15/16 02:08; Admin Dose 10 MG; Start 09/15/16 at 01:50 Collagenase (Santyl) 1 applic DAILY TOP Last administered on 10/18/16 09:30; Admin Dose 1 APPLIC; Start 09/18/16 at 09:00 Glycopyrrolate (Robinul) 1 mg Q8 GTB Last administered on 10/16/16 05:47; Admin Dose 1 MG; Start 09/19/16 at 09:30; Status Future Hold Miscellaneous Information 1 ea NOTE XX ; Start 09/28/16 at 09:00 Glucose (Glutose) 15 gm Q15M PRN PO DECREASED GLUCOSE; Start 09/28/16 at 09:00 Glucose (Glutose) 22.5 gm Q15M PRN PO DECREASED GLUCOSE; Start 09/28/16 at 09:00 Dextrose (D50w Syringe) 25 ml Q15M PRN IV DECREASED GLUCOSE Last administered on 10/18/16 06:15; Admin Dose 25 ML; Start 09/28/16 at 09:00 Dextrose (D50w Syringe) 50 ml Q15M PRN IV DECREASED GLUCOSE; Start 09/28/16 at 09:00 Glucagon (Glucagen) 1 mg Q15M PRN IM DECREASED GLUCOSE; Start 09/28/16 at 09:00 Glucose (Glutose) 15 gm Q15M PRN BUCCAL DECREASED GLUCOSE; Start 09/28/16 at 09: 00 Insulin Aspart (Novolog Insulin Pen) NOVOLOG *MILD* ALGORI... Q6 SC Last administered on 10/11/16 12:27; Admin Dose 1 UNIT; Start 09/29/16 at 00:00 IV Flush (NS 10 ml) 10 ml PRN PRN IV FLUSH LINE; Start 09/29/16 at 20:30 Epoetin Jeffry 6000 units 6,000 units MoWeFr@17 SC Last administered on 18:10; Admin Dose 6,000 UNITS; Start 10/01/16 at 17:00 Norepinephrine 16 mg/Dextrose 500 ml @ 0 mls/hr TITRATE IV Last administered on 10/18/16 09:29; Admin Dose 56.25 MLS/HR; Start 10/10/16 at 08:30 Levetiracetam 500 mg/Sodium Chloride 105 ml @ 420 mls/hr Q12 IVPB Last administered on 10/18/16 09:30; Admin Dose 420 MLS/HR; Start 10/10/16 at 21:00 Dextrose (D10w) 1,000 ml @ 50 mls/hr Q20H IV Last administered on 10/18/16 04 :30; Admin Dose 50 MLS/HR; Start 10/14/16 at 20:00 TONORMA MD Oct 18, 2016 12:38 NORMA TALBOT MD Oct 18, 2016 12:38
--- NOTE | 2016-10-18 12:55 | PN ---
Date/Time of Note Date/Time of Note DATE: 10/18/16 TIME: 12:53 Assessment/Plan VTE Prophylaxis VTE Prophylaxis Intervention: other Lines/Catheters IV Catheter Type (from [facility]): Permacath Urinary Cath still in place: No Assessment/Plan Assessment/Plan - Shock hypovolemic, possibly septic. Continue ICU care, IVF, pressors, blood transfusion. -Severe anemia anemia secondary to GI bleed. Continue Protonix drip. Plan for possible endoscopy when patient is more stable. Continue blood transfusion. - Heparin-induced thrombocytopenia, hold heparin, patient status post platelets transfusion. Dr. Coughlin is following in hematology consultation. - GNR bacteremia, status of the PICC line exchange. - Severe anemia 2 GI bleed. Continue to monitor hemoglobin and hematocrit. Dr. Singh is following in gastroenterology consultation. - Acute kidney failure on chronic kidney disease. Continue to monitor BUN and creatinine. Dr. Mk Purdy is following in nephrology consultation. Patient with worsening renal function. Started on Hemodialysis during this admission. - Pancytopenia 2 chronic inflammation and sepsis. - Ventilator-dependent respiratory failure. Dr. Aragon is following in pulmonology consultation. Continue ventilator support, bronchodilators. - HCAP on admission. Status post treatment. - Dysphagia with PEG. - History of seizure disorder. Continue patient on Keppra. - Diastolic dysfunction congestive heart failure with preserved ejection fraction of 60%. - S/p sepsis on admission. Dr. Guy is following patient in infectious disease consultation. - Status post cerebrovascular accident, status post craniotomy. - Mental retardation. - DNR status Per ethics committee hemodialysis and and other aggressive interventions stopped 10/15. Continue Protonix for peptic ulcer disease prophylaxis. Further recommendations based on clinical course. Plan of care discussed with Dr. Mcelroy. Subjective 24 Hr Interval Summary Free Text/Dictation RESTING, REMAINS ON VENT, for hospice evaluation. dw staff Exam/Review of Systems Vital Signs Vitals Vital Signs Date Time Temp Pulse Resp B/P Pulse Ox O2 Delivery O2 Flow Rate FiO2 10/18/16 12:15 104 15 66/42 Mechanical Ventilator 10/18/16 12:00 97.9 10/18/16 11:23 98 30 Intake and Output 10/17/16 10/17/16 10/18/16 15:00 23:00 07:00 Intake Total 942.50 ml 449.50 ml 1416.25 ml Output Total 300 ml Balance 942.50 ml 449.50 ml 1116.25 ml Exam Constitutional: frail, non-verbal ENMT: nl external ears & nose Respiratory: diminished breath sounds Cardiovascular: nl pulses Gastrointestinal: distended, soft Musculoskeletal: muscle weakness, swelling Extremities: edema Neurological: unresponsive Lymph: other Results Result Diagram: 10/17/16 0400 10/17/16 0400 Results 24 hrs Laboratory Tests Test 10/17/16 18:11 10/18/16 01:27 10/18/16 06:08 10/18/16 06:34 Bedside Glucose 94 73 67 L 109 Test 10/18/16 11:25 Bedside Glucose 87 Medications Medications Current Medications Acetaminophen (Tylenol Liquid) 640 mg Q6H PRN GTB PAIN OR TEMP ABOVE 38C Last administered on 10/07/16 17:51; Admin Dose 640 MG; Start 09/06/16 at 22:30 Allopurinol (Zyloprim) 200 mg DAILY GTB Last administered on 10/16/16 08:34; Admin Dose 200 MG; Start 09/07/16 at 09:00; Status Future Hold Ascorbic Acid (Vitamin C) 500 mg BID GTB Last administered on 10/16/16 08:34; Admin Dose 500 MG; Start 09/07/16 at 09:00; Status Future Hold Calcitriol (Rocaltrol) 0.25 mcg DAILY GTB Last administered on 10/16/16 08:34 ; Admin Dose 0.25 MCG; Start 09/07/16 at 09:00; Status Future Hold Chlorhexidine Gluconate (Peridex) 15 ml BID MM Last administered on 10/18/16 09:30; Admin Dose 15 ML; Start 09/07/16 at 09:00 Metoclopramide HCl (Reglan) 5 mg Q8H PRN GTB NAUSEA AND/OR VOMITING; Start 09/06 at 22:30; Status Future Hold Sucralfate (Carafate Susp) 1 gm BID GTB Last administered on 10/16/16 08:33; Admin Dose 1 GM; Start 09/07/16 at 09:00; Status Future Hold Ondansetron HCl (Zofran Inj) 4 mg Q6H PRN IV NAUSEA AND/OR VOMITING Last administered on 09/17/16 00:52; Admin Dose 4 MG; Start 09/06/16 at 22:30 Morphine Sulfate (morphine) 2 mg Q4H PRN IV PAIN LEVEL 7-10 Last administered on 10/18/16 03:54; Admin Dose 2 MG; Start 09/06/16 at 22:30 Metoclopramide HCl (Reglan) 5 mg Q6H PRN IV RESIDUALS > 100 Last administered on 10/16/16 20:42; Admin Dose 5 MG; Start 09/10/16 at 19:00 Clonidine (Catapres) 0.1 mg Q6H PRN GTB ELEVATED SYSTOLIC BP Last administered on 09/15/16 07:04; Admin Dose 0.1 MG; Start 09/13/16 at 23:00 Hydralazine HCl (Apresoline) 10 mg Q6H PRN IV ELEVATED SYSTOLIC BP Last administered on 09/15/16 02:08; Admin Dose 10 MG; Start 09/15/16 at 01:50 Collagenase (Santyl) 1 applic DAILY TOP Last administered on 10/18/16 09:30; Admin Dose 1 APPLIC; Start 09/18/16 at 09:00 Glycopyrrolate (Robinul) 1 mg Q8 GTB Last administered on 10/16/16 05:47; Admin Dose 1 MG; Start 09/19/16 at 09:30; Status Future Hold Miscellaneous Information 1 ea NOTE XX ; Start 09/28/16 at 09:00 Glucose (Glutose) 15 gm Q15M PRN PO DECREASED GLUCOSE; Start 09/28/16 at 09:00 Glucose (Glutose) 22.5 gm Q15M PRN PO DECREASED GLUCOSE; Start 09/28/16 at 09:00 Dextrose (D50w Syringe) 25 ml Q15M PRN IV DECREASED GLUCOSE Last administered on 10/18/16 06:15; Admin Dose 25 ML; Start 09/28/16 at 09:00 Dextrose (D50w Syringe) 50 ml Q15M PRN IV DECREASED GLUCOSE; Start 09/28/16 at 09:00 Glucagon (Glucagen) 1 mg Q15M PRN IM DECREASED GLUCOSE; Start 09/28/16 at 09:00 Glucose (Glutose) 15 gm Q15M PRN BUCCAL DECREASED GLUCOSE; Start 09/28/16 at 09: 00 Insulin Aspart (Novolog Insulin Pen) NOVOLOG *MILD* ALGORI... Q6 SC Last administered on 10/11/16 12:27; Admin Dose 1 UNIT; Start 09/29/16 at 00:00 IV Flush (NS 10 ml) 10 ml PRN PRN IV FLUSH LINE; Start 09/29/16 at 20:30 Epoetin Jeffry 6000 units 6,000 units MoWeFr@17 SC Last administered on 18:10; Admin Dose 6,000 UNITS; Start 10/01/16 at 17:00 Norepinephrine 16 mg/Dextrose 500 ml @ 0 mls/hr TITRATE IV Last administered on 10/18/16 09:29; Admin Dose 56.25 MLS/HR; Start 10/10/16 at 08:30 Levetiracetam 500 mg/Sodium Chloride 105 ml @ 420 mls/hr Q12 IVPB Last administered on 10/18/16 09:30; Admin Dose 420 MLS/HR; Start 10/10/16 at 21:00 Dextrose (D10w) 1,000 ml @ 50 mls/hr Q20H IV Last administered on 10/18/16 04 :30; Admin Dose 50 MLS/HR; Start 10/14/16 at 20:00 KRISTOPHER SOTO Oct 18, 2016 12:55
[2016-10-18] MEDS ORDERED: morphine 10 MG INJ IV ONE (21:00)
[2016-10-18] MEDS ORDERED: LORAZEPAM 2 MG INJ IV PRN (21:00)
[2016-10-18] MEDS ORDERED: morphine (DRIP) 100 MG/100 ML 100 ML IV SCH (21:00)
== END 2016-10-18 21:51 | disposition expired | DRG 870 ==
LOC: E/R 20:26 → ICU 22:27 → TEL 09-11 19:27 → ICU 10-09 08:20
PROVIDERS: ADMIT Internal Medicine; ATTEND Internal Medicine
PROC: 5A1955Z Respiratory Ventilation, Greater than 96 Consecutive Hours (ICD-10-PCS; principal; 2016-09-06)
PROC: 30233N1 Transfusion of Nonautologous Red Blood Cells into Peripheral Vein, Percutaneous Approach (ICD-10-PCS; 2016-09-06)
PROC: 30233R1 Transfusion of Nonautologous Platelets into Peripheral Vein, Percutaneous Approach (ICD-10-PCS; 2016-09-07)
PROC: 05HN33Z Insertion of Infusion Device into Left Internal Jugular Vein, Percutaneous Approach (ICD-10-PCS; 2016-09-15)
PROC: 5A1D60Z (ICD-10-PCS; 2016-09-15)
PROC: 02H633Z Insertion of Infusion Device into Right Atrium, Percutaneous Approach (ICD-10-PCS; 2016-09-29)
DX: A41.59 Other Gram-negative sepsis (principal); N17.0 Acute kidney failure with tubular necrosis; R65.21 Severe sepsis with septic shock; D65 Disseminated intravascular coagulation [defibrination syndrome]; E43 Unspecified severe protein-calorie malnutrition; G93.1 Anoxic brain damage, not elsewhere classified; J18.9 Pneumonia, unspecified organism; L89.314 Pressure ulcer of right buttock, stage 4; L89.214 Pressure ulcer of right hip, stage 4; L89.223 Pressure ulcer of left hip, stage 3; L89.103 Pressure ulcer of unspecified part of back, stage 3; L89.153 Pressure ulcer of sacral region, stage 3; D61.818 Other pancytopenia; J96.10 Chronic respiratory failure, unspecified whether with hypoxia or hypercapnia; N18.4 Chronic kidney disease, stage 4 (severe); N17.9 Acute kidney failure, unspecified; K92.2 Gastrointestinal hemorrhage, unspecified; I50.30 Unspecified diastolic (congestive) heart failure; T80.211A Bloodstream infection due to central venous catheter, initial encounter; Z66 Do not resuscitate; G80.9 Cerebral palsy, unspecified; E11.9 Type 2 diabetes mellitus without complications; Z93.0 Tracheostomy status; E87.5 Hyperkalemia; G40.909 Epilepsy, unspecified, not intractable, without status epilepticus; I50.9 Heart failure, unspecified; F79 Unspecified intellectual disabilities; Z93.1 Gastrostomy status; R13.10 Dysphagia, unspecified; Z86.73 Personal history of transient ischemic attack (TIA), and cerebral infarction without residual deficits; B96.1 Klebsiella pneumoniae [K. pneumoniae] as the cause of diseases classified elsewhere; B96.89 Other specified bacterial agents as the cause of diseases classified elsewhere; N50.89 Other specified disorders of the male genital organs; L89.159 Pressure ulcer of sacral region, unspecified stage; R60.1 Generalized edema; B96.5 Pseudomonas (aeruginosa) (mallei) (pseudomallei) as the cause of diseases classified elsewhere; Z16.24 Resistance to multiple antibiotics; L89.612 Pressure ulcer of right heel, stage 2
CPT/HCPCS: 36415; 36430; 36556; 36569; 36600; 71010; 74000; 76705; 76775; 76937; 80048; 80053; 80202; 81001; 81003; 82270; 82607; 82728; 82746; 82803; 82962; 83540; 83605; 83615; 83735; 84100; 84134; 84484; 85025; 85045; 85049; 85362; 85378; 85384; 85610; 85670; 85730; 86022; 86644; 86703; 86704; 86709; 86803; 86850; 86900; 86901; 86920; 86945; 87040; 87045; 87070; 87075; 87081; 87086; 87340; 90686; 90935; 93005; 93923; 93970; 93971; 94002; 94003; 94640; 96374; 96375; 97161; J1940; C1750; C1752; C1769; C9113; J0171; J0278; J0360; J0690; J0692; J0744; J0886; J1170; J1644; J1650; J1815; J1953; J2185; J2270; J2405; J2765; J2997; J3370; J3480; J7030; J7040; J7042; J7050; J7060; J7070; P9016; P9035; P9047; Q9967